=== PATIENT | female | born 1950 | race Caucasian/White ===

== ENCOUNTER 2019-11-16 17:56 | Inpatient (IN) | payer MEDICARE, SELFPAY ==
[2019-11-16] VITALS (8 sets, daily range): BP systolic 116–184; BP diastolic 57–93; PULSE 100–118; RESP 15–22; TEMP 36.6–36.7; O2SAT 88–98; BMI 30.7
--- NOTE | 2019-11-16 18:07 | ED_ITS ---
Entered by Collin Isabel LPN, acting as scribe for Jemal Hampton DO HPI - Chest Pain General: Chief Complaint: Chest Pain Stated Complaint: cp Time Seen by Provider: 11/16/19 18:11 Source: patient Mode of arrival: wheelchair Limitations: no limitations History of Present Illness: HPI narrative: 69 yo female presents with c/o chest pain that started a few days ago and has worsened. She reports headache. She feels pain in both arms and between her shoulder blades. The back pain increases with movement and touch. She reports vomiting and diarrhea. She denies fever. She has had sore throat. She denies abd pain. She has had increased swelling to BLE. Pt with h/o HTN, has had trouble getting her BP regulated for a long time. She denies having cardiac stents. MD complaint: chest pain Onset (ago): day(s) Timing of current episode: constant Onset: during rest Pain radiation: back (between shoulder blades) Severity: severe Relieving factors: nothing Associated symptoms: Reports nausea and vomiting; Deny abdominal pain, dyspnea, fever(s) or palpitations Review of Systems Const: Denies: fever or chills Eyes: Denies: change in vision or blurry vision ENMT: Reports: throat pain; Denies: painful swallowing, swelling of lips/tongue, bleeding gums, dental pain, Change in hearing, nose bleeds, post nasal drip or facial/sinus pain Card: Reports: chest pain and edema; Denies: palpitations, irregular heart rhythm, swelling of feet/ankles, shortness of breath on exertion or shortness of breath when lying down Resp: Denies: shortness of breath, productive cough, non-productive cough or wheezing GI: Reports: nausea and vomiting; Denies: abdominal pain, rectal pain, blood in stool or black tarry stool : Denies: painful urination, urinary frequency, urinary urgency or blood in urine Musc: Reports: back pain; Denies: neck pain, redness or joint warmth Skin/Breast: Denies: rash, itching or redness Neuro: Reports: headache; Denies: dizziness, vertigo, confusion or seizure-like activity Psych: Denies: anxiety, visual hallucinations or auditory hallucinations PFSH ED PFSH: Statuses (acute, chronic, etc) shown below reflect problem list status as previously entered and may not be historically accurate Social History Smoking and tobacco status: former smoker Physical Exam Const: COMMON NORMALS: alert GENERAL APPEARANCE: cooperative, well dev eloped and in distress (moderate distress, in pain); not comfortable ORIENTATION/CONSCIOUSNESS: Yes awake, Yes oriented to person, Yes oriented to place and Yes oriented to time HENMT: COMMON NORMALS: normocephalic, external ears normal, external nose normal and moist oral mucous membranes HEAD & SCALP: normocephalic; no scalp tenderness FACE & SINUS: normal facial exam NOSE: external nose normal and no nasal discharge EXTERNAL EAR: Yes external ears normal MOUTH: tongue normal TEETH & GINGIVA: no abnormal tooth and associated gingiva Eye: COMMON NORMALS: PERRL, EOMs intact bilaterally and conjunctivae normal EYELID: eyelids normal CONJUNCTIVA: Yes conjunctivae normal PUPIL: Yes PERRL Neck/C-Spine: COMMON NORMALS: full ROM GENERAL: No tracheal deviation CERVICAL SPINE: Yes normal cervical lordosis and No cervical spine tenderness Chest: COMMONS NORMALS: inspection of chest normal CHEST: Yes symmetrical chest wall rise and No tenderness Resp: COMMON NORMALS: clear to auscultation bilaterally EFFORT & INSPECTION: No tachypneic, No respiratory distress, No retractions, No uses acc essory muscles and No tracheal deviation AUSCULTATION: clear to auscultation bilaterally, no rhonchi, no wheezes and lung sounds not diminished Cardio: COMMON NORMALS: regular rhythm; negative for regular rate RATE: abnormal rate RHYTHM: regular rhythm HEART SOUNDS: no murmurs PERIPHERAL PULSES: radial pulses present OTHER: tachycardia GI: INSPECTION: No abdominal distension AUSCULTATION: No hyperactive bowel sounds and No hypoactive bowel sounds PALPATION: No tender, No guarding and No rigid PERCUSSION: no dullness to percussion and no tympanic to percussion : COMMON NORMALS: Yes no CVA tenderness BLADDER/KIDNEY EXAM: Yes no CVA tenderness Back/Pelvis: COMMON NORMALS: no CVA tenderness PELVIS: Yes no pain with anterior-posterior compression and Yes no pain with lateral compression OTHER: mild tenderness upper thoracic Neuro: SENSORIUM/ORIENTATION: Yes alert, Yes oriented to person, Yes oriented to place and Yes oriented to time Psych: COMMON NORMALS: mental status grossly normal and speech normal SPEECH: Yes normal speech Skin: COMMON NORMALS: no rashes or lesions noted GENERAL SKIN EXAM: no rashes or lesions noted Course ED course: 69-year-old female with no prior history of coronary disease. She presents with chest discomfort radiating to her upper back. She states that her arms had gone numb on and off. She had some mild trouble breathing. She had mild tenderness to her upper thoracic region. She was hypertensive and mildly tachycardic on arrival. Her first troponin was elevated. Her second 1 significantly elevated, creating a delta of 70. Prior to her second troponin, her d-dimer came back positive, and due to concern of pulmonary embolism versus aortic dissection given her back pain, CTA was performed. It was negative. But did show calcification of her coronary arteries. She had no significant elevation of her ST segments on EKG initially or at 2 hours. She did have some mild ST segment depression laterally more pronounced initially. Cardiology was consulted from the ER. She will go to [facility] for further treatment and evaluation. She has had nitroglycerin, she took aspirin at home, and morphine for pain. Consultations: Consultation #1: seferino Time: 21:01 Consultation #2: Jairo Time: 21:09 Vital Signs: Vital signs: Vital Signs Temperature 98.1 F 11/16/19 22:30 Pulse Rate 84 11/17/19 04:00 Respiratory Rate 12 11/17/19 04:00 Blood Pressure 111/63 11/17/19 04:00 Pulse Oximetry 97 11/17/19 04:00 MDM - Chest Pain Lab Data: Labs: Lab Results 11/16/19 11/16/19 11/16/19 Range/Units 18:15 18:15 18:15 WBC 7.2 (4.0-10.0) 10^3/ uL RBC 3.99 L (4.1-5.3) 10^6/u L Hgb 12.5 (11.5-15.3) g/dL Hct 39.5 (37.0-47.0) % MCV 99.0 (81-99) fL MCH 31.3 (28.0-34.0) pg MCHC 31.6 (30.0-36.0) g/dL RDW 12.9 (12.1-15.1) % Plt Count 241 (130-400) 10^3/c mm MPV 12.0 H (7.4-10.4) fL Neut % (Auto) 61.5 % Lymph % (Auto) 26.2 % [place] % (Auto) 9.3 % Eos % (Auto) 1.8 % Baso % (Auto) 1.1 % Neut # (Auto) 4.4 (1.8-7.7) 10^3/u L Lymph # (Auto) 1.9 (0.8-4.8) 10^3/u L [place] # (Auto) 0.7 (0.2-0.9) 10^3/u L Eos # (Auto) 0.1 (0.0-0.8) 10^3/u L Baso # (Auto) 0.1 (0.0-0.1) 10^3/u L Nucleated RBC % (a uto) 0 % Nucleated RBCs # 0.0 /100WBC PT 13.00 (10.5-13.3) SECO NDS INR 0.96 (0.8-1.2) APTT 24.5 (23.9-36.7) SECO NDS D-Dimer 2.20 H (0-0.59) ug/mIFE U Sodium 151 H (136-145) mmol/L Potassium 4.2 (3.5-5.1) mmol/L Chloride 109 H (98-107) mmol/L Carbon Dioxide 24 (22-29) mmol/L Anion Gap 22.2 H (5-19) BUN 27 H (8-23) mg/dL Creatinine 1.2 H (0.5-0.9) mg/dL Glucose 173 H (74-106) mg/dL Calcium 9.9 (8.8-10.2) mg/Dl Troponin T Baselin e (0-10) ng/mL Troponin T 120 Min huslia (0-10) ng/mL Delta Troponin T (0-10) ABS# NT-Pro-B Natriuret Pep 1804 H (0-125) pg/mL Lipase 46 (13-60) U/L 11/16/19 11/16/19 Range/Units 18:15 20:08 WBC (4.0-10.0) 10^3/ uL RBC (4.1-5.3) 10^6/u L Hgb (11.5-15.3) g/dL Hct (37.0-47.0) % MCV (81-99) fL MCH (28.0-34.0) pg MCHC (30.0-36.0) g/dL RDW (12.1-15.1) % Plt Count (130-400) 10^3/c mm MPV (7.4-10.4) fL Neut % (Auto) % Lymph % (Auto) % [place] % (Auto) % Eos % (Auto) % Baso % (Auto) % Neut # (Auto) (1.8-7.7) 10^3/u L Lymph # (Auto) (0.8-4.8) 10^3/u L [place] # (Auto) (0.2-0.9) 10^3/u L Eos # (Auto) (0.0-0.8) 10^3/u L Baso # (Auto) (0.0-0.1) 10^3/u L Nucleated RBC % (a uto) % Nucleated RBCs # /100WBC PT (10.5-13.3) SECO NDS INR (0.8-1.2) APTT (23.9-36.7) SECO NDS D-Dimer (0-0.59) ug/mIFE U Sodium (136-145) mmol/L Potassium (3.5-5.1) mmol/L Chloride (98-107) mmol/L Carbon Dioxide (22-29) mmol/L Anion Gap (5-19) BUN (8-23) mg/dL Creatinine (0.5-0.9) mg/dL Glucose (74-106) mg/dL Calcium (8.8-10.2) mg/Dl Troponin T Baselin e 73 H (0-10) ng/mL Troponin T 120 Min huslia 152.80 H (0-10) ng/mL Delta Troponin T 79.80 H* (0-10) ABS# NT-Pro-B Natriuret Pep (0-125) pg/mL Lipase (13-60) U/L Critical Care Time Critical Care Time: Critical Care Time: Yes Total Critical Care Time: 45 Attestation: This case had a high probability of a clinically significant, sudden, or life threatening deterioration of this patient's condition which required my full and direct attention, intervention and personal management. Discharge Plan Discharge Admit Provider: Nunu Wilson Discharge Date/Time: 11/16/19 22:10 Coding Level of Care Code ED Car Trimmer for Chg Fwd Exam Problem Focused The documentation recorded by the Chalo nieves Dani Elizabeth, LPN, accurately reflects the service I personally performed and the decisions made by me, Jemal Hampton, Nov 16, 2019 17:56
--- NOTE | 2019-11-16 18:18 | ECG_ITS ---
Measurements Intervals [place] Rate: 116 P: 64 MI: 146 QRS: -7 QRSD: 89 T: 62 QT: 303 QTc: 422 SINUS TACHYCARDIA WITH OCCASIONAL VENTRICULAR PREMATURE COMPLEXES POSSIBLE LEFT ATRIAL ENLARGEMENT [-0.1mV P WAVE IN V1/V2] NONSPECIFIC ST & T-WAVE ABNORMALITY ABNORMAL RHYTHM ECG No previous ECG available for comparison Electronically Signed On 11-16-2019 19:21:08 COMPRESS MACHINE OPERATOR by Hoa Gill M.D. [id number]
--- NOTE | 2019-11-16 18:18 | XRR_ITS ---
PROCEDURE INFORMATION: Exam: XR Chest, 1 View Exam date and time: 11/16/2019 6:32 PM Age: 69 years old Clinical indication: Cough; Additional info: Cp TECHNIQUE: Imaging protocol: XR of the chest Views: 1 view. COMPARISON: No relevant prior studies available. FINDINGS: Lungs: Unremarkable. No consolidation. Pleural space: Unremarkable. No pleural effusion. No pneumothorax. Heart/Mediastinum: Heart size not optimally evaluated with a single AP view of the chest. Vasculature: There is calcified plaque in the aortic knob. Bones/joints: There are degenerative changes in the thoracic spine and across the acromioclavicular joints. Other findings: Lumbar scoliotic curvatures. XR/XR chest 1V portable [id number] IMPRESSION: No acute findings.
[2019-11-16] MEDS: ondansetron 2 mg/ML SDV 2 mL 4 MG IVP ×2 (18:33→20:35)
[2019-11-16] MEDS: morphine 4 mg/mL SDV 1 mL IVP ×3 (18:33→21:16)
[2019-11-16 18:47] LABS: Basophils # 0.1 10^3/uL (0.0-0.1); Basophils % 1.1 %; Eosinophils # 0.1 10^3/uL (0.0-0.8); Eosinophils % 1.8 %; Hematocrit 39.5 % (37.0-47.0); Hemoglobin 12.5 g/dL (11.5-15.3); Lymphocytes # 1.9 10^3/uL (0.8-4.8); Lymphocytes % 26.2 %; Mean Corpuscular HGB Conc 31.6 g/dL (30.0-36.0); Mean Corpuscular Hemoglobin 31.3 pg (28.0-34.0); Monocytes # 0.7 10^3/uL (0.2-0.9); Monocytes % 9.3 %; Neutrophils # 4.4 10^3/uL (1.8-7.7); Neutrophils % 61.5 %; Nucleated Red Blood Cells % 0 %; Platelet Count 241 10^3/cmm (130-400); Red Blood Count 3.99 10^6/uL (4.1-5.3); Red Cell Distribution Width 12.9 % (12.1-15.1); White Blood Count 7.2 10^3/uL (4.0-10.0)
[2019-11-16 19:05] LABS: INR 0.96 (0.8-1.2)
[2019-11-16 19:06] LABS: Partial Thromboplastin Time 24.5 SECONDS (23.9-36.7)
--- NOTE | 2019-11-16 19:10 | CTR_ITS ---
PROCEDURE INFORMATION: Exam: CT Angiography Chest With Contrast Exam date and time: 11/16/2019 7:20 PM Age: 69 years old Clinical indication: Chest pain; Type not specified; Additional info: Cp TECHNIQUE: Imaging protocol: Computed tomographic angiography of the chest with intravenous contrast. 3D rendering: MIP and/or 3D reconstructed images were created by the technologist. Total DLP: 1080.54 mGy-cm Radiation optimization: All CT scans at this facility use at least one of these dose optimization techniques: automated exposure control; mA and/or kV adjustment per patient size (includes targeted exams where dose is matched to clinical indication); or iterative reconstruction. Contrast material: VISI; Contrast volume: 95 ml; Contrast route: IV; COMPARISON: CR (CHEST, ) 11/16/2019 6:23 PM FINDINGS: Pulmonary arteries: Normal. No pulmonary emboli. Aorta: Unremarkable. No aortic aneurysm. No aortic dissection. Lungs: There are pulmonary parenchymal calcifications consistent with remote granulomatous organism exposure. Pleural space: Unremarkable. No pneumothorax. No pleural effusion. Heart: Multivessel atherosclerotic disease which involves the coronary arteries. Mediastinum: Small hiatal hernia. Lymph nodes: Unremarkable. No enlarged lymph nodes. Bones/joints: There are thoracolumbar scoliotic curvatures. There are degenerative changes in the visualized spine. Soft tissues: Unremarkable. CT/CT angio chest PE protcl [id number] IMPRESSION: 1. Multivessel atherosclerotic disease which involves the coronary arteries. 2. No evidence for pulmonary embolus. Radiation Dose CTDIVOL = (mGy): DLP = 1080.54 (mGy-cm)
--- NOTE | 2019-11-16 19:10 | CTR_ITS ---
PROCEDURE INFORMATION: Exam: CTA Angiogram of the Abdominal Aorta and Bilateral Lower Extremities (Run-off) With IV Contrast Exam date and time: 11/16/2019 7:20 PM Age: 69 years old Clinical indication: Abdominal pain; Generalized; Prior surgery; Surgery date: 6+ months; Surgery type: Gb, hsyt; Additional info: Cp, belly pain TECHNIQUE: Imaging protocol: CT angiogram of the abdominal aorta, pelvis and bilateral lower extremities with IV iodinated contrast. 3D rendering: MIP and/or 3D reconstructed images were created by the technologist. Total DLP: 1918.42 mGy-cm Radiation optimization: All CT scans at this facility use at least one of these dose optimization techniques: automated exposure control; mA and/or kV adjustment per patient size (includes targeted exams where dose is matched to clinical indication); or iterative reconstruction. Contrast material: VISI; Contrast volume: 95 ml; Contrast route: IV; COMPARISON: CT angio chest PE protcl [id number] 11/16/2019 8:34 PM FINDINGS: Aorta: Abdominal aorta is tortuous. No aortic aneurysm. No aortic dissection. Celiac trunk and mesenteric arteries: There is calcified plaque at the origin of the celiac artery without significant stenosis. There is calcified plaque at the origin of the superior mesenteric artery with approximately 30% stenosis. Renal arteries: There is calcified plaque in the left renal artery with approximately 50% stenosis at the origin. There is calcified plaque in the right renal artery with approximately 70% stenosis proximally. Right iliac arteries: Scattered atherosclerotic plaque. No occlusion or significant stenosis. Right femoral/popliteal arteries: Scattered atherosclerotic plaque with luminal irregularity. Right infrapopliteal arteries: There is scattered atherosclerotic plaque in the anterior tibial, posterior tibial, and peroneal arteries. There is thready flow with multiple regions of narrowing and possible occlusion in the proximal to mid aspects of the anterior tibialis artery. No flow is seen within the distal aspect of the anterior tibialis artery. Left iliac arteries: Scattered atherosclerotic plaque. No occlusion or significant stenosis. Left femoral/popliteal arteries: There is scattered atherosclerotic plaque with luminal irregularity throughout. Left infrapopliteal arteries: No occlusion or significant stenosis. There is thready flow in the proximal to mid aspects of the anterior tibialis artery. No flow is seen within the distal aspect of the anterior tibialis artery.There is thready flow within the midportion of the peroneal artery. No flow seen within the distal aspect of the peroneal artery approximately 15 mm superior to the ankle joint. Liver: See Gallbladder And Bile Ducts Finding. Gallbladder and bile ducts: The gallbladder has been removed. Prominence of the intrahepatic and extrahepatic biliary ducts. This can be seen after cholecystectomy. No radiopaque retained stones are seen. Pancreas: Unremarkable. No mass. No ductal dilation. Spleen: Normal. No splenomegaly. Adrenals: Normal. No mass. Kidneys and ureters: Normal. No mass. Stomach and bowel: Colonic constipation is present. Appendix: No evidence of appendicitis. Bladder: Unremarkable. No mass. Reproductive: The uterus is not visualized, consistent with hysterectomy. Intraperitoneal space: Unremarkable. No free air. No significant fluid collection. Lymph nodes: No lymphadenopathy. Bones/joints: There are thoracolumbar scoliotic curvatures. There are degenerative changes in the visualized spine. Soft tissues: Unremarkable. CT/CT angio abd aorta runof [id number] IMPRESSION: Multi-vessel atherosclerotic disease as described in detail above. Colonic constipation is present. Radiation Dose CTDIVOL = (mGy): DLP = 1918.42 (mGy-cm)
--- NOTE | 2019-11-16 19:12 | PC.NURSE ---
Introduced self to patient and initiated monitoring. Pt presented earlier this PM with epigastric chest pain which radiates to left arm and between shoulder blades. Pt currently states a pain level of 3/10 between shoulder blades ad no chest pain.
[2019-11-16 19:14] LABS: Troponin(5th) Baseline 73 ng/mL (0-10)
[2019-11-16 19:45] LABS: Anion Gap 22.2 (5-19); Blood Urea Nitrogen 27 mg/dL (8-23); Calcium 9.9 mg/Dl (8.8-10.2); Carbon Dioxide 24 mmol/L (22-29); Chloride 109 mmol/L (98-107); Glucose 173 mg/dL (74-106); Lipase 46 U/L (13-60); NT Pro B Type Natriuretic Pept 1804 pg/mL (0-125); Potassium 4.2 mmol/L (3.5-5.1); Sodium 151 mmol/L (136-145)
[2019-11-16] MEDS: iodixanol 320 mg/mL 100mL Btl IV ×2 (20:00→20:44)
--- NOTE | 2019-11-16 20:18 | ECG_ITS ---
Measurements Intervals [place] Rate: 97 P: 43 [place]: 149 QRS: -18 QRSD: 89 T: 77 QT: 325 QTc: 415 SINUS RHYTHM POSSIBLE LEFT ATRIAL ENLARGEMENT [-0.1mV P WAVE IN V1/V2] NONSPECIFIC ST & T-WAVE ABNORMALITY Compared to ECG 11/16/2019 18:09:23 Sinus tachycardia no longer present Ventricular premature complex(es) no longer present T-wave abnormality still present Electronically Signed On 11-17-2019 19:29:41 WRITER by Hoa Gill M.D. [id number]
--- NOTE | 2019-11-16 20:25 | PC.NURSE ---
pt in CT
--- NOTE | 2019-11-16 20:35 | PC.NURSE ---
Spoke with provider regarding Delta Change in Troponin level (+79). Will continue to monitor.
[2019-11-16] MEDS: clopidogrel 300 mg Tablet PO (21:15)
[2019-11-16] MEDS: enoxaparin 80 mg/0.8 mL Syringe SUBCUT (21:15)
[2019-11-16] MEDS: nitroglycerin 1 gm/inch oint Pkt 1 INCH TOPICAL (21:16)
--- NOTE | 2019-11-16 21:27 | PM.HP ---
Providers/Chief Complaint Chief Complaint: CHEST PAIN, NON STEMI History of Present Illness Eliana Samuels is a 69 year old female with history of hypertension, hypothyroidism presents with chest pain. Patient states that pain started 1 week ago and has progressively worsened located in the mid chest radiating to the back and left neck along with left shoulder. Patient has never experienced chest pain like this before. Patient also admits to shortness of breath worse on exertion. Patient does admit to recent flu which she is still recovering from. Denies active fever, chills, or abdominal pain. Review of Systems General: Reports: 10 or more systems reviewed and unremarkable except in HPI and below Card: Reports: chest pain and shortness of breath on exertion Resp: Reports: shortness of breath PFSH Acute PFSH: Statuses (acute, chronic, etc) shown below reflect problem list status as previously entered and may not be historically accurate Social History Smoking and tobacco status: former smoker Vitals/I&O/Wt Last Vital Signs Temp 97.9 F 11/16/19 18:17 Pulse 116 H 11/16/19 21:00 Resp 18 11/16/19 21:00 BP 169/92 11/16/19 21:00 Pulse Ox 96 11/16/19 21:00 Weight last 48 hrs Weight 86.183 kg Physical Exam Const: COMMON NORMALS: no apparent distress, oriented x3 and well nourished HENMT: COMMON NORMALS: normocephalic HEAD & SCALP: normocephalic Eye: COMMON NORMALS: no scleral icterus Neck/C-Spine: COMMON NORMALS: full ROM and supple Resp: COMMON NORMALS: normal respiratory effort and clear to auscultation bilaterally EFFORT & INSPECTION: Yes symmetric chest movement AUSCULTATION: clear to auscultation bilaterally Cardio: COMMON NORMALS: regular rate, regular rhythm, S1 normal heart sound and S2 normal heart sound RATE: regular rate RHYTHM: regular rhythm HEART SOUNDS: S1 normal and S2 normal GI: COMMON NORMALS: normal to inspection, nondistended, normoactive bowel sounds and non-tender Extremity: COMMON NORMALS: full ROM and no clubbing, cyanosis or edema Neuro: COMMON NORMALS: oriented x3 Psych: COMMON NORMALS: mental status grossly normal Skin: COMMON NORMALS: no rashes or lesions noted GENERAL SKIN EXAM: no rashes or lesions noted Data : 11/16/19 18:15 11/16/19 18:15 A&P Assessment and plan (1) NSTEMI (non-ST elevated myocardial infarction): # Chest pain 2/2 NSTEMI with elevated trop - tele - EKG shows no ST elevations -Lovenox subcu, beta-radha, aspirin, Plavix, statin ?Cardiology contacted from the ED?possible cardiac cath in the a.m. N.p.o. past midnight ?Nitro PRN ?CT scan chest negative for PE #Shortness of breath (stable) likely 2/2 heart failure in setting of NSTEMI. No crackles auscultated on exam but noted to have elevated proBNP - will start Lasix IV push if needed #Continue with rest of chronic home medications?patient currently does not remember which medication she takes at home and does not have a list with her. Family will be bringing medications in the a.m. to be restarted inpatient #DVT prophylaxis?on Lovenox Status: Acute Code(s): I21.4 - Non-ST elevation (NSTEMI) myocardial infarction (2) Accelerated essential hypertension: Status: Chronic Code(s): I10 - Essential (primary) hypertension (3) Hypothyroid: Status: Chronic Code(s): E03.9 - Hypothyroidism, unspecified Attestations Medical Necessity Statement*: Patient requires greater than 2 midnights of inpatient stay for NSTEMI Coding Level of Care Code Acute Pick Up And Delivery Driver for [facility] Diagnoses NSTEMI (non-ST elevated myocardial infarction) I21.4 Accelerated essential hypertension I10 Hypothyroid E03.9
[2019-11-16] MEDS: atorvastatin 40 mg Tablet 80 MG PO (22:36)
--- NOTE | 2019-11-16 23:12 | PC.NURSE ---
Patients daughter Bela will bring patients home medications in the am when she returns. Patient unable to verbalize all medications and dosages correctly.
[2019-11-17] VITALS (17 sets, daily range): BP systolic 94–152; BP diastolic 53–92; PULSE 72–93; RESP 12–21; TEMP 36.7–36.8; O2SAT 90–99
[2019-11-17 01:12] LABS: Troponin 5 6HR 257.1 ng/L (0-10); Troponin 5 6HR Delta 184.1 ng/L (0-12)
[2019-11-17 05:20] LABS: Basophils # 0.1 10^3/uL (0.0-0.1); Basophils % 1.1 %; Eosinophils # 0.1 10^3/uL (0.0-0.8); Eosinophils % 1.8 %; Hematocrit 32.9 % (37.0-47.0); Hemoglobin 10.3 g/dL (11.5-15.3); Lymphocytes # 1.5 10^3/uL (0.8-4.8); Lymphocytes % 34.8 %; Mean Corpuscular HGB Conc 31.3 g/dL (30.0-36.0); Mean Corpuscular Hemoglobin 30.9 pg (28.0-34.0); Mean Corpuscular Volume 98.8 fL (81-99); Mean Platelet Volume 11.8 fL (7.4-10.4); Monocytes # 0.5 10^3/uL (0.2-0.9); Monocytes % 10.8 %; Neutrophils # 2.2 10^3/uL (1.8-7.7); Neutrophils % 51.3 %; Nucleated Red Blood Cells % 0 %; Platelet Count 174 10^3/cmm (130-400); Red Blood Count 3.33 10^6/uL (4.1-5.3); White Blood Count 4.4 10^3/uL (4.0-10.0)
[2019-11-17 05:26] LABS: Partial Thromboplastin Time 30.1 SECONDS (23.9-36.7)
[2019-11-17 05:41] LABS: Blood Urea Nitrogen 24 mg/dL (8-23); Calcium 9.3 mg/Dl (8.8-10.2); Carbon Dioxide 26 mmol/L (22-29); Chloride 105 mmol/L (98-107); Glucose 104 mg/dL (74-106); Sodium 140 mmol/L (136-145)
--- NOTE | 2019-11-17 08:33 | PM.CONSULT ---
Providers/Reason For Consult Consulting Physican/Specialty*: Adam Gill MD/cardiology Reason for Consult*: Patient with chest pain and elevated troponin T Requesting Physcian: Dr. Hampton Attending Physician: Marquise Talavera History of Present Illness History of Present Illness Eliana Samuels is a 69 year old female , admitted to the hospital with complaints of chest pain and elevated troponin I. Patient has a longstanding history of hypertension. She been having chest pain off and on for the last year or so. For the last 1 month, she been having chest pains almost on a daily basis. The pain may last anywhere from few hours to a whole day. It usually starts between the shoulder blades and then radiates across the shoulders, to the neck and to the front of the chest. Intensity of the pain varies. It could be up to 10/10 in intensity. Yesterday the pain was more severe, associated with nausea and some shortness of breath. For that reason, she decided to come to the hospital. She did not have any palpitation, dizziness or syncopal episode. Might have had some sweating. For the last 3 weeks, she had flulike symptoms. According the patient, she thought that the pain may be related to the flu. But because of the worsening of the symptoms, she decided to come to the hospital. She has no documented history for coronary artery disease, myocardial infarction or congestive heart failure. Couple of years ago, she was told to have possible silent heart attack. She had a myocardial perfusion imaging 2 years ago and was told to be okay. The details of the results are as mentioned below. Review of Systems Narrative: Patient had flulike symptoms for the last couple of weeks Const: Reports: other (Anorexia); Denies: fever, chills, change in appetite, fatigue or night sweats Eyes: Denies: change in vision, blurry vision or eye discomfort ENMT: Denies: bleeding gums, nose bleeds or other (Spinning Sensation, Trouble Swallowing) Card: Reports: chest pain; Denies: syncope, pre-syncope, shortness of breath when lying down or leg pain with exertion Resp: Denies: productive cough, change in phlegm color or coughing up blood GI: Denies: vomiting, vomiting blood, bloating, blood in stool or black tarry stool : Denies: blood in urine Musc: Reports: neck pain, extremity swelling (Bilateral leg swelling) and joint pain; Denies: extremity pain, redness, muscle cramps, muscle weakness or other (Neck Pain or Swollen Glands) Skin/Breast: Denies: rash, itching, redness, new lesion, changes in skin color, yellow skin, nail changes or breast mass/lump Neuro: Denies: headache, changes in sensation, lack of coordination, frequent falls, dizziness, vertigo, seizure-like activity or other (TIA, Numbness) Psych: Reports: other (Delusions, Disorientation, or Insomnia); Denies: visual hallucinations, auditory hallucinations or tactile hallucinations Endo: Denies: excessive urination, excessive thirst or other (Abnormal Hair Loss) Neal/Lymph: Denies: easy bruising All/Imm: Denies: hives Meds/Allergies Home Medications and Allergies Home Medications Medication Instructions Recorded Confirmed Type amlodipine [Norvasc] 10 mg PO DAILY 11/17/19 11/17/19 History carvedilol 12.5 mg PO BID 11/17/19 11/17/19 History cyanocobalamin (vitamin B-12) 1,000 mcg PO DAILY 11/17/19 11/17/19 History [Vitamin B-12] levothyroxine [Synthroid] 88 mcg PO DAILY 11/17/19 11/17/19 History liothyronine 5 mcg PO DAILY 11/17/19 11/17/19 History lisinopril 20 mg PO BID 11/17/19 11/17/19 History Allergies Allergy/AdvReac Type Severity Reaction Status Date / Time No Known Allergies Allergy Verified 11/16/19 22:57 Current Medications Current Medications Generic Name Dose Route Start Last Admin Trade Name Freq PRN Reason Stop Dose Admin Atorvastatin Calcium 80 mg 11/16/19 22:00 11/16/19 22:36 Lipitor PO 80 mg BEDTIME TOSHIA Administration PFSH Acute PFSH: Statuses (acute, chronic, etc) shown below reflect problem list status as previously entered and may not be historically accurate Medical History Tubal ligation evaluation (Acute) Surgical History H/O hysterectomy for benign disease (Acute) Family History Brother CAD (coronary artery disease), Onset Age: 59 of myocardial infarction at age 59 Father CAD (coronary artery disease), Onset Age: 55 Had open heart surgery x3 Grandfather CAD (coronary artery disease), Onset Age: 55 Also of myocardial infarction in the late 50s Social History Smoking and tobacco status: former smoker Vitals/I&O/Wt Last Vital Signs Temp 98.1 F 11/16/19 22:30 Pulse 90 11/17/19 08:12 Resp 21 H 11/17/19 06:00 BP 113/62 11/17/19 06:00 Pulse Ox 98 11/17/19 08:12 11/16/19 11/17/19 11/17/19 22:59 06:59 14:59 Intake Total 100 / 100 0 / 100 Balance 100 / 100 0 / 100 Weight last 48 hrs Weight 190 lb Physical Exam Const: COMMON NORMALS: oriented x3, alert and well nourished GENERAL APPEARANCE: cooperative, well developed and well hydrated; not in distress HENMT: MOUTH: lip normal; no other (ulcers or bleeding) TEETH & GINGIVA: no other (bleeding observed and inflammation present) Eye: COMMON NORMALS: PERRL and conjunctivae normal CONJUNCTIVA: Yes conjunctivae normal SCLERA: sclerae normal PUPIL: Yes PERRL DIRECT OPHTHALMOSCOPY: Yes other (The fundus is not visualized) Neck/C-Spine: COMMON NORMALS: no JVD and thyroid normal THYROID: thyroid normal CAROTIDS: Yes normal carotid upstroke (and runoff) Chest: COMMONS NORMALS: inspection of chest normal Resp: COMMON NORMALS: clear to auscultation bilaterally EFFORT & INSPECTION: Yes symmetric chest movement and No uses accessory muscles AUSCULTATION: clear to auscultation bilaterally, no crackles and no wheezes Cardio: COMMON NORMALS: no JVD, regular rate, regular rhythm, S1 normal heart sound, S2 normal heart sound, no gallops, no clicks, no murmurs, no rub and peripheral pulses 2+ throughout JUGULAR VENOUS DISTENTION: JVD present PALPATION: no heave, no palpable S3 and no thrill RATE: regular rate RHYTHM: regular rhythm HEART SOUNDS: S1 normal, S2 normal, no click and no murmurs BRUITS: no abdominal aortic bruits PERIPHERAL PULSES: pulses 2+ throughout, femoral pulses present positive bilateral (Normal), posterior tibial pulses present (Weak) positive bilateral (Normal) and dorsalis pedis pulses present (Weak) positive bilateral (Normal) GI: AUSCULTATION: Yes normoactive bowel sounds and No abdominal bruit PALPATION: No tender, No hepatomegaly, No splenomegaly and No mass Back/Pelvis: GENERAL BACK: No swelling and No other (joint deformities) THORACIC SPINE/UPPER BACK: No kyphosis present LUMBAR SPINE/LOWER BACK: No lumbar scoliosis present Extremity: COMMON NORMALS: negative for no clubbing, cyanosis or edema and negative for no pedal edema GENERAL: No cyanosis Neuro: COMMON NORMALS: oriented x3; negative for no focal motor deficits SENSORIUM/ORIENTATION: Yes alert MOTOR EXAM: No tremor Psych: MOOD & AFFECT: Yes other (Normal mood and affect) Skin: COMMON NORMALS: skin turgor normal; negative for no petechiae GENERAL SKIN EXAM: turgor normal, skin not dry and no erythema RASHES: rash noted NAILS: normal, no clubbing, not discolored and no other (cyanosis) Data Imaging^: Lexiscan stress: My impression: Test was done on 05/17/2016 1. Myocardial perfusion imaging revealing a small area of persistent increased uptake in the apical inferolateral and lateral wall regions, suggestive of myocardial scarring in the distribution of the left circumflex artery. 2. Normal left ventricular ejection fraction of 52%. 3. Wall motion analysis revealing mild diffuse hypokinesia in the apex. 4. Normal left ventricular volume. 5. No significant coronary ischemia, based on the above findings. ADDENDUM: The patient was found to have some nonspecific ST changes with the Lexiscan infusion. She also had a few premature ventricular contractions during the stress phase A&P Assessment and plan (1) Accelerated essential hypertension: The patient blood pressure seems to be getting under control now. She may be kept on the current medications. Status: Chronic Code(s): I10 - Essential (primary) hypertension (2) NSTEMI (non-ST elevated myocardial infarction): Patient has clinical features of non-ST elevation myocardial infarction. She is currently stable hemodynamically. Her EKG changes are very nonspecific. Currently she has significant improvement of the chest pain. May continue on the Lovenox, Plavix, aspirin, beta-radha and statin. An echocardiogram would be helpful to evaluate LV function and rule out other pathology. Status: Acute Code(s): I21.4 - Non-ST elevation (NSTEMI) myocardial infarction (3) Hypothyroid: Patient has a history of hypothyroidism. She is on thyroid supplement. This may be continued. Her thyroid profile need to be checked. Status: Chronic Qualifiers: Hypothyroidism type: acquired Qualified Code(s): E03.9 - Hypothyroidism, unspecified Code(s): E03.9 - Hypothyroidism, unspecified (4) Chronic kidney disease: Patient appears to have stage II kidney disease. Status: Acute Qualifiers: Chronic kidney disease stage: stage 2 (mild) Qualified Code(s): N18.2 - Chronic kidney disease, stage 2 (mild) Code(s): N18.9 - Chronic kidney disease, unspecified Additional A&P Information Additional A&P Information: Patient's cholesterol status is not known. May do a lipid profile on the blood in the lab. In view of the patient prolonged episode of chest pain and the significantly elevated troponin T, in order to further evaluate her coronary status, she may benefit from a cardiac authorization. This was discussed with the patient and her family in detail which they understood well. After reviewing the echocardiogram, timing of the cardiac catheterization will be decided. If she has significant wall motion normalities, we may consider doing the coronary angiogram as early as possible. Consult Attestations Medical Necessity Statement: Patient requires continued hospital stay for close monitoring and further management Coding Level of Care Code Acute Electrician Chief for Hillary Lambert Exam Problem Focused Diagnoses Accelerated essential hypertension I10 NSTEMI (non-ST elevated myocardial infarction) I21.4 Hypothyroid E03.9 Hypothyroidism type: acquired Chronic kidney disease N18.2 Chronic kidney disease stage: stage 2 (mild)
[2019-11-17] MEDS: clopidogrel 75 mg Tablet PO (08:46)
[2019-11-17] MEDS: aspirin 81 mg Chew Tablet PO (08:46)
[2019-11-17] MEDS: metoprolol tartrate 25 mg Tablet 12.5 MG PO (08:46)
[2019-11-17] MEDS: acetaminophen 325 mg Tablet 650 MG PO ×2 (08:46→16:11)
--- NOTE | 2019-11-17 08:48 | P.PN_ITS ---
Subjective Subjective: Interval history: She reports that she was having chest pain yesterday, central, radiating up to her neck and then to her head. She reports that overnight she was feeling better. Currently some of the discomfort is returning, although states it is minimal. Vitals/I&O/Wt Last Vital Signs Temp 98.1 F 11/16/19 22:30 Pulse 90 11/17/19 08:12 Resp 21 H 11/17/19 06:00 BP 113/62 11/17/19 06:00 Pulse Ox 98 11/17/19 08:12 11/16/19 11/17/19 11/17/19 22:59 06:59 14:59 Intake Total 100 / 100 0 / 100 Balance 100 / 100 0 / 100 Weight last 48 hrs Weight 86.183 kg Physical Exam Const: COMMON NORMALS: no apparent distress and oriented x3 HENMT: COMMON NORMALS: oropharynx normal Neck/C-Spine: COMMON NORMALS: no JVD Resp: COMMON NORMALS: normal respiratory effort and clear to auscultation bilaterally AUSCULTATION: clear to auscultation bilaterally Cardio: COMMON NORMALS: no JVD, regular rhythm, S1 normal heart sound, S2 normal heart sound and no murmurs RHYTHM: regular rhythm HEART SOUNDS: S1 normal and S2 normal GI: COMMON NORMALS: normal to inspection, nondistended, normoactive bowel sounds, soft to palpation and non-tender PALPATION: Yes soft Extremity: COMMON NORMALS: no joint enlargement and no pedal edema Neuro: COMMON NORMALS: oriented x3 and moves all extremities Skin: COMMON NORMALS: no rashes or lesions noted GENERAL SKIN EXAM: no rashes or lesions noted A&P Assessment and plan (1) NSTEMI (non-ST elevated myocardial infarction): Elevated troponin, [id number]. Chest pain last night. With improvement overnight, but some return of symptoms this morning. Nonspecific ST and T wave abnormality on EKG. History of hypertension. Former smoker. Reports family history of coronary disease. Incidentally noted multivessel atherosclerotic disease on CTA. No PE. She is awaiting assessment by cardiology for additional, possibly invasive risk stratification. At this time continue aspirin, Plavix, Lovenox, beta-radha, statin. Creatinine is 1.1 which appears close to her baseline. Status: Acute Code(s): I21.4 - Non-ST elevation (NSTEMI) myocardial infarction (2) Accelerated essential hypertension: Blood pressure was initially elevated. Currently appears close to goal. Status: Chronic Code(s): I10 - Essential (primary) hypertension (3) Hypothyroid: Status: Chronic Code(s): E03.9 - Hypothyroidism, unspecified Additional A&P Information Additional A&P Information: Shortness of breath: This appears to improved. This morning's complaining of some dry mouth secondary to oxygen. She is not normally on oxygen at home. Saturation 99% on 1 L nasal cannula. Received IV Lasix. Attestations Medical Necessity Statement*: Continue admission for assessment management of non-STEMI. Coding Level of Care Code Acute Community Worker for [facility]ust[facility] Diagnoses NSTEMI (non-ST elevated myocardial infarction) I21.4 Accelerated essential hypertension I10 Hypothyroid E03.9
--- NOTE | 2019-11-17 09:16 | USCV_ITS ---
Eliana Samuels Age: 69 Gender: F : 1950 Exam Date: 11/17/2019 10:30 Ordering Phys: Hoa Gill MD ([email or web address]) Technologist: Sanaz Hansen [place] [facility] [place]: ACUTE [place] BP: 135 / 71 HR: 80 Rhythm: Sinus Technical Quality: Adequate MEASUREMENTS (Male / Female) Normal Values 2D ECHO LV Diastolic Diameter PLAX 2.8 cm 4.2 - 5.9 / 3.9 - 5.3 cm LV Systolic Diameter PLAX 2.2 cm LV Chamber Size 2.5 cm IVS Diastolic Thickness 1.0 cm 0.6 - 1.0 / 0.6 - 0.9 cm IVS Systolic Thickness 1.3 cm LVPW Diastolic Thickness 1.8 cm 0.6 - 1.0 / 0.6 - 0.9 cm LVPW Systolic Thickness 2.1 cm RV Chamber Size 3.0 cm LVOT Diameter 2.0 cm LV Ejection Fraction 2D Teich 45.9 % LV Ejection Fraction MOD 2C 56.6 % LV Ejection Fraction 2C AL 58.9 % LA Diameter 4.5 cm LA Width 4.3 cm LA Height 5.6 cm RA Width 3.0 cm RA Height 4.2 cm Aorta at Sinotubular Diameter 2.3 cm M-MODE LV Diastolic Diameter MM 5.1 cm 4.2 - 5.9 / 3.9 - 5.3 cm LV Systolic Diameter MM 3.4 cm LV Ejection Fraction MM Teich 62.1 % IVS Diastolic Thickness MM 0.8 cm 0.6 - 1.0 / 0.6 - 0.9 cm IVS Systolic Thickness MM 1.3 cm LVPW Diastolic Thickness MM 1.0 cm 0.6 - 1.0 / 0.6 - 0.9 cm LVPW Systolic Thickness MM 1.3 cm Aortic Annulus Diameter 2.9 cm LA Ao Ratio MM 1.5 MV E Point Septal Separation 1.1 cm DOPPLER AV Peak Velocity 168.0 cm/s LVOT Peak Velocity 111.0 cm/s AV Area Cont Eq vti 2.5 cm squared AV Area Cont Eq pk 2.1 cm squared MV Area PHT 4.5 cm squared Mitral E to A Ratio 1.0 MV E' Velocity 10.0 cm/s Mitral E to MV E' Ratio 16.0 Mitral E to LV E' Lateral Ratio 14.8 Mitral E to LV E' Septal Ratio 17.5 TR Peak Velocity 376.0 cm/s TR Peak Gradient 56.5 mmHg TR Mean Velocity 180.7 cm/s TR Mean Gradient 15.1 mmHg TR Velocity Time Integral 81.3 cm TV Peak E Velocity 84.0 cm/s Right Atrial Pressure 3.0 mmHg Pulmonary Artery Systolic Pressu 59.6 mmHg PV Peak Velocity 71.0 cm/s RV Acceleration Time 0.2 s RV Ejection Time 0.4 s RV AcT/ET 0.4 FINDINGS Left Ventricle Normal left ventricular size and systolic function, EF 55%. No gross wall motion normalities.Grade II/IV diastolic dysfunction, moderately elevated filling pressures. Right Ventricle Normal right ventricular size and systolic function. Right Atrium Normal right atrial size. Left Atrium Mildly increased left atrial size. Mitral Valve Thickened mitral valve. Mild mitral annular calcification. Mild mitral valve regurgitation. Aortic Valve No gross abnormalities noted Tricuspid Valve [id number] tricuspid valve regurgitation. Pulmonic Valve No gross abnormalities noted Pericardium No pericardial effusion. Aorta Plaque seen in the ascending aorta. CONCLUSIONS Normal left ventricular size and systolic function, EF 55%. No gross wall motion normalities. Grade II/IV diastolic dysfunction, moderately elevated filling pressures. Mildly increased left atrial size. Thickened mitral valve. Mild mitral annular calcification. [id number] tricuspid valve regurgitation. Mild mitral valve regurgitation. There is no pericardial effusion. There are no intracardiac masses. No previous study is available for comparison. Dr Hoa Gill MD FAC (Electronically Signed) Final Date: 17 November 2019 18:27 S
[2019-11-17] MEDS: levothyroxine 88 mcg Tablet PO (10:13)
[2019-11-17] MEDS: cyanocobalamin 1,000 mcg Tablet 1000 MCG PO (10:13)
[2019-11-17] MEDS: enoxaparin 100 mg/mL Syringe 90 MG SUBCUT ×2 (10:23→20:44)
[2019-11-17] MEDS: metoprolol tartrate 25 mg Tablet 37.5 MG PO (10:27)
[2019-11-17] MEDS: liothyronine 5 mcg Tablet PO (10:40)
[2019-11-17] MEDS: ondansetron 2 mg/ML SDV 2 mL 4 MG IVP (11:07)
[2019-11-17 11:40] LABS: Troponin T (5th) Once 490 ng/mL (0-10)
[2019-11-17] MEDS: metoprolol tartrate 50 mg Tablet PO (17:45)
[2019-11-17] MEDS: morphine 4 mg/mL SDV 1 mL IVP ×2 (17:47→20:47)
[2019-11-17] MEDS: nitroglycerin 1 gm/inch oint Pkt 1 INCH TOPICAL (18:51)
[2019-11-17] MEDS: atorvastatin 40 mg Tablet 80 MG PO (20:45)
--- NOTE | 2019-11-17 20:54 | PC.NURSE ---
patient c/o pain 5 out of 10 in neck and shoulders not radiating anywhere else.
[2019-11-18] VITALS (23 sets, daily range): BP systolic 107–181; BP diastolic 52–107; PULSE 72–95; RESP 15–31; TEMP 36.7–37.9; O2SAT 93–98
[2019-11-18] MEDS: nitroglycerin 1 gm/inch oint Pkt 1 INCH TOPICAL ×3 (01:17→21:17)
--- NOTE | 2019-11-18 02:08 | ECG_ITS ---
Measurements Intervals [place] Rate: 80 P: 52 W[place]: 151 QRS: -16 QRSD: 73 T: 87 QT: 337 QTc: 389 SINUS RHYTHM POSSIBLE LEFT ATRIAL ENLARGEMENT [-0.1mV P WAVE IN V1/V2] NONSPECIFIC ST & T-WAVE ABNORMALITY Compared to ECG 11/16/2019 20:07:42 No significant changes Electronically Signed On 11-18-2019 13:28:47 COMPUTER REPAIR ENGINEER by Radha Goldstein M.D. [id number]
[2019-11-18] MEDS: morphine 4 mg/mL SDV 1 mL IVP ×3 (02:12→15:46)
[2019-11-18] MEDS: ondansetron 2 mg/ML SDV 2 mL 4 MG IVP ×2 (02:12→07:19)
--- NOTE | 2019-11-18 02:12 | ECG_ITS ---
Measurements Intervals [place] Rate: 80 P: 52 MS: 151 QRS: -16 QRSD: 73 T: 87 QT: 337 QTc: 389 SINUS RHYTHM POSSIBLE LEFT ATRIAL ENLARGEMENT [-0.1mV P WAVE IN V1/V2] NONSPECIFIC ST & T-WAVE ABNORMALITY Compared to ECG 11/16/2019 20:07:42 No significant changes Electronically Signed On 11-18-2019 13:28:55 SAMPLER OVENS by Radha Goldstein M.D. [email or web address]
[2019-11-18] MEDS: nitroglycerin drip 50 MG/250 ML PREMIX IV ×2 (02:35→08:13)
--- NOTE | 2019-11-18 02:36 | PC.NURSE ---
0212 patient developed chest pain as well as neck and shoulder pain. stat ekg ordered 4mg morphine given and ntp. Dr. John here ordered nitro drip to titrte for chest pain. patient chest pain started to ease up and vs became stable, no changes in ekg. will continue to monitor
--- NOTE | 2019-11-18 02:37 | PM.MISC ---
Miscellaneous Note Note: Patient awakened with pain in her shoulder blades, rated as 15, given Morphine and NTG paste applied, appears murguia and anxious. At bedside, pain is beginning to subside, was quite hypertensive (181/107) when pain began, down to about 8, BP improving. ECG does not show any new changes. Will start on NTG drip as pain has been recurrent. Is NPO for cath tomorrow AM.
[2019-11-18 05:32] LABS: Troponin T (5th) Once 418 ng/mL (0-10)
[2019-11-18] MEDS: sodium chloride 0.9% 1,000 ML 50 ML IV (07:20)
[2019-11-18] MEDS: diphenhydrAMINE 50 mg Capsule PO (07:20)
[2019-11-18] MEDS: metoprolol tartrate 50 mg Tablet PO (08:13)
[2019-11-18] MEDS: levothyroxine 88 mcg Tablet PO (08:13)
[2019-11-18] MEDS: aspirin 81 mg Chew Tablet PO (08:13)
[2019-11-18] MEDS: clopidogrel 75 mg Tablet PO (08:13)
[2019-11-18 10:01] LABS: Anion Gap 13.1 (5-19); Blood Urea Nitrogen 16 mg/dL (8-23); Calcium 9.3 mg/Dl (8.8-10.2); Carbon Dioxide 26 mmol/L (22-29); Chloride 103 mmol/L (98-107); Glucose 99 mg/dL (74-106); Potassium 4.1 mmol/L (3.5-5.1); Sodium 138 mmol/L (136-145)
[2019-11-18] MEDS: liothyronine 5 mcg Tablet PO (11:32)
[2019-11-18] MEDS: cyanocobalamin 1,000 mcg Tablet 1000 MCG PO (11:33)
--- NOTE | 2019-11-18 13:26 | PM.PN ---
Subjective Subjective: Interval history: She was having chest pain overnight. Elevated blood pressure. Was started on nitroglycerin drip, with improvement. Awaiting assessment by angiography. Vitals/I&O/Wt Last Vital Signs Temp 100.2 F H 11/18/19 08:00 Pulse 75 11/18/19 12:00 Resp 17 11/18/19 12:00 BP 126/68 11/18/19 12:00 Pulse Ox 97 11/18/19 12:00 11/17/19 11/18/19 11/18/19 22:59 06:59 14:59 Intake Total 480 / 680 240 / 920 436.9 / 436.9 Output Total 1200 / 1600 800 / 2400 1050 / 1050 Balance -720 / -920 -560 / -1480 -613.1 / -613.1 Weight last 48 hrs Weight 86.183 kg Physical Exam Const: COMMON NORMALS: no apparent distress and oriented x3 HENMT: COMMON NORMALS: oropharynx normal Neck/C-Spine: COMMON NORMALS: no JVD Resp: COMMON NORMALS: normal respiratory effort and clear to auscultation bilaterally AUSCULTATION: clear to auscultation bilaterally Cardio: COMMON NORMALS: no JVD, regular rhythm, S1 normal heart sound, S2 normal heart sound and no murmurs RHYTHM: regular rhythm HEART SOUNDS: S1 normal and S2 normal GI: COMMON NORMALS: normal to inspection, nondistended, normoactive bowel sounds, soft to palpation and non-tender PALPATION: Yes soft Extremity: COMMON NORMALS: no joint enlargement and no pedal edema Neuro: COMMON NORMALS: oriented x3 and moves all extremities Skin: COMMON NORMALS: no rashes or lesions noted GENERAL SKIN EXAM: no rashes or lesions noted A&P Assessment and plan (1) NSTEMI (non-ST elevated myocardial infarction): Continue nitroglycerin drip. Coronary angiography today. Elevated troponin, [id number]. Chest pain last night. With improvement overnight, but some return of symptoms this morning. Nonspecific ST and T wave abnormality on EKG. History of hypertension. Former smoker. Reports family history of coronary disease. Incidentally noted multivessel atherosclerotic disease on CTA. No PE. She is awaiting assessment by cardiology for additional, possibly invasive risk stratification. At this time continue aspirin, Plavix, Lovenox, beta-radha, statin. Creatinine is 1.1 which appears close to her baseline. Status: Acute Code(s): I21.4 - Non-ST elevation (NSTEMI) myocardial infarction (2) Accelerated essential hypertension: Blood pressure was initially elevated. Currently appears close to goal. Status: Chronic Code(s): I10 - Essential (primary) hypertension (3) Hypothyroid: Status: Chronic Qualifiers: Hypothyroidism type: acquired Qualified Code(s): E03.9 - Hypothyroidism, unspecified Code(s): E03.9 - Hypothyroidism, unspecified Additional A&P Information Shortness of breath: This appears to improved. This morning's complaining of some dry mouth secondary to oxygen. She is not normally on oxygen at home. Saturation 99% on 1 L nasal cannula. Attestations Medical Necessity Statement*: Continue admission for assessment management of non-STEMI. Coding Level of Care Code Acute Video Game Designer for [facility] Diagnoses NSTEMI (non-ST elevated myocardial infarction) I21.4 Accelerated essential hypertension I10 Hypothyroid E03.9 Hypothyroidism type: acquired
--- NOTE | 2019-11-18 13:50 | P.PN_ITS ---
Subjective Subjective: Interval history: Patient had an episode of chest pain around 3:00 this morning. She was started on IV nitroglycerin. She had an episode of pain early this morning as well. Currently she is pain-free. The EKG did not show any new changes. The EKG showed some nonspecific ST-T change in the anterolateral leads. The troponin T is trending down. Medications: Reviewed: Yes Vitals/I&O/Wt Last Vital Signs Temp 100.2 F H 11/18/19 08:00 Pulse 72 11/18/19 13:48 Resp 16 11/18/19 13:48 BP 147/75 11/18/19 13:48 Pulse Ox 95 11/18/19 13:48 11/17/19 11/18/19 11/18/19 22:59 06:59 14:59 Intake Total 480 / 680 240 / 920 436.9 / 436.9 Output Total 1200 / 1600 800 / 2400 1050 / 1050 Balance -720 / -920 -560 / -1480 -613.1 / -613.1 Weight last 48 hrs Weight 190 lb Physical Exam Const: GENERAL APPEARANCE: cooperative, well developed and well hydrated; not in distress HENMT: MOUTH: lip normal; no other (ulcers or bleeding) TEETH & GINGIVA: no other (bleeding observed and inflammation present) Eye: COMMON NORMALS: PERRL and conjunctivae normal CONJUNCTIVA: Yes conjunctivae normal SCLERA: sclerae normal PUPIL: Yes PERRL DIRECT OPHTHALMOSCOPY: Yes other (The fundus is not visualized) Neck/C-Spine: COMMON NORMALS: no JVD and thyroid normal THYROID: thyroid normal CAROTIDS: Yes normal carotid upstroke (and runoff) Chest: COMMONS NORMALS: inspection of chest normal Resp: COMMON NORMALS: clear to auscultation bilaterally EFFORT & INSPECTION: Yes symmetric chest movement and No uses accessory muscles AUSCULTATION: clear to auscultation bilaterally, no crackles and no wheezes Cardio: COMMON NORMALS: no JVD, regular rate, regular rhythm, S1 normal heart sound, S2 normal heart sound, no gallops, no clicks, no murmurs, no rub and peripheral pulses 2+ throughout JUGULAR VENOUS DISTENTION: JVD present PA LPATION: no heave, no palpable S3 and no thrill RATE: regular rate RHYTHM: regular rhythm HEART SOUNDS: S1 normal, S2 normal, no click and no murmurs BRUITS: no abdominal aortic bruits PERIPHERAL PULSES: pulses 2+ throughout, femoral pulses present positive bilateral (Normal), posterior tibial pulses present (Weak) positive bilateral (Normal) and dorsalis pedis pulses present (Weak) positive bilateral (Normal) GI: AUSCULTATION: Yes normoactive bowel sounds and No abdominal bruit PALPATION: No tender, No hepatomegaly, No splenomegaly and No mass Back/Pelvis: GENERAL BACK: No swelling and No other (joint deformities) THORACIC SPINE/UPPER BACK: No kyphosis present LUMBAR SPINE/LOWER BACK: No lumbar scoliosis present Extremity: COMMON NORMALS: negative for no clubbing, cyanosis or edema and negative for no pedal edema GENERAL: No cyanosis Neuro: COMMON NORMALS: negative for no focal motor deficits MOTOR EXAM: No tremor Psych: MOOD & AFFECT: Yes other (Normal mood and affect) Skin: COMMON NORMALS: skin turgor normal; negative for no petechiae GENERAL SKIN EXAM: turgor normal, skin not dry and no erythema RASHES: rash noted NAILS: normal, no clubbing, not discolored and no other (cyanosis) A&P Assessment and plan (1) NSTEMI (non-ST elevated myocardial infarction): Patient has clinical features of non-ST elevation myocardial infarction. She is currently stable hemodynamically. Her EKG changes are very nonspecific. Currently she has significant improvement of the chest pain. May continue on the Lovenox, Plavix, aspirin, beta-radha and statin. Because of the patient's ongoing episodes of recurrent chest pain, in order to further evaluate her coronary status, she requires a cardiac catheterization. She also has a new EKG changes. The risk of bleeding, hematoma, vascular injury, myocardial infarction, CVA, renal failure and other concomitant complications were explained in detail. Patient understood this well and consented to proceed. She is scheduled for the cardiac authorization later this afternoon. In the meanwhile, she may continue on the current medications. Status: Acute Code(s): I21.4 - Non-ST elevation (NSTEMI) myocardial infarction (2) Accelerated essential hypertension: The blood pressure is in the normal range. Continue on the current medications. Status: Chronic Code(s): I10 - Essential (primary) hypertension (3) Hypothyroid: Patient has a history of hypothyroidism. She is on thyroid supplement. This may be continued. We may do a thyroid profile on the blood in the lab. Status: Chronic Qualifiers: Hypothyroidism type: acquired Qualified Code(s): E03.9 - Hypothyroidism, unspecified Code(s): E03.9 - Hypothyroidism, unspecified (4) Chronic kidney disease: Patient appears to have stage II kidney disease. BUN normal range. Creatinine is 1.1 today. The kidney function is stable Status: Acute Qualifiers: Chronic kidney disease stage: stage 2 (mild) Qualified Code(s): N18.2 - Chronic kidney disease, stage 2 (mild) Code(s): N18.9 - Chronic kidney disease, unspecified Additional A&P Information Patient's cholesterol status is not known. May do a lipid profile on the blood in the lab. Attestations Medical Necessity Statement*: Patient requires continued hospital stay for close monitoring and further management Coding Level of Care Code Acute Accounts Receivable Coordinator for Chg Fwd Diagnoses NSTEMI (non-ST elevated myocardial infarction) I21.4 Accelerated essential hypertension I10 Hypothyroid E03.9 Hypothyroidism type: acquired Chronic kidney disease N18.2 Chronic kidney disease stage: stage 2 (mild)
[2019-11-18 14:48] LABS: Chol HDL Ratio 3.02 mg/dL (0.0-4.40); Cholesterol 163 mg/dL (0-200); Free T4 Free Thyroxine 2.13 ng/dL (0.82-1.77); HDL Cholesterol 54 mg/dL (60-100); LDL Cholesterol Calculated 94 mg/dL (50-129); LDL HDL Ratio 1.74 RATIO (0.00-3.22); Thyroid Stimulating Hormone 0.04 uIU/mL (0.27-4.20); Triglycerides 76 mg/dL (0-150)
--- NOTE | 2019-11-18 16:30 | XACV_ITS ---
Exam Room: [facility] Ht: 168 cm Wt: 86 kg BSA: 2.03 m2 Gender: Female : 1950 Any Known Allergies: No known allergies Exam Priority: Routine Procedure(s): Procedure Description: Diagnostic procedure Procedure Description: Left Heart Catheterization Procedure Description: Coronary Angiography Diagnostic Cath Status: Elective Diagnostic Findings The left main is a medium caliber vessel which appears to have a severe distal stenosis of around 70%. The left and descending artery was found to have severe disease proximally, involving the ostium. The lesion ranges anywhere from 70 to 90%. Around 40% lesion was noted in the origin of the first diagonal artery. The mid and distal artery was found to have mild diffuse intimal regularities with no significant stenotic lesions. 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 Right after this, there was a tubular narrowing of around 70 to 80%. The circumflex artery was found to have 20 to 30% irregular narrowing proximally. It gives off multiple small obtuse marginal branches. No other significant stenotic lesions were noted. The right coronary artery is a medium to large caliber dominant vessel which was found to have a 30% tapering narrowing proximally. The PDA branch was found to have a high-grade ostial stenosis of around 90%. The PLV branch was found to have proximal around 40% tubular narrowing. No other significant stenotic lesions were noted. CX has 0% stenosis. LM: Moderate 70% stenosis, SANJAY: 3 flow. pLAD: Severe 90% stenosis, SANJAY: 3 flow. Ramus: Severe 80% stenosis, SANJAY: 3 flow. pRCA: Mild 40% stenosis, SANJAY: 3 flow. RPDA: Severe 90% stenosis, SANJAY: 3 flow. Coronary angiography shows right dominance. Conclusions This is a 69-year-old white female with a history of hypertension , obesity, strong family history for premature vascular heart disease and remote history of smoking abuse, presented with increasing episodes of chest pain for the last 1 month. She was found to have features of a non-ST elevation myocardial infarction. She has recurrent episodes of chest pain while being in the hospital. Her initial EKG was unremarkable except for some nonspecific ST changes. Repeat EKG showed more prominent ST-T changes in the anterolateral leads. In view of her ongoing recurrent episodes of chest pain, abnormal EKG and elevated troponin T, for further evaluation of her coronary status, a cardiac catheterization was recommended. Patient underwent left heart catheterization with left and right coronary angiogram today. Initially I attempted the radial approach. Because of the extreme tortuosity in the subclavian artery and the ascending aorta, catheter engagement of the coronary artery was difficult. For this reason, we had to go to the femoral artery in the right groin. Her thoracic and the abdominal aorta also were found to be very tortuous. For this reason, it was difficult to advance the pigtail catheter into the left ventricle. The LV pressure was recorded using a an Amplatz(AL1) catheter. The LVEDP was 7 mmHg. The coronary angiogram findings are as follows. Severe distal left main disease. High-grade stenosis of the proximal LAD, involving the ostium. High-grade stenosis of the proximal segment of the intermedius artery. Another high-grade lesion was noted near to the ostium of the PDA branch of the right coronary artery. Mild diffuse disease was noted to the other vessels. No significant lesions were noted in the distal segment of the arteries. Moderate to heavy calcification was noted in the left main and proximal LAD. There is severe coronary artery disease with four vessel disease. Recommendations I contacted Dr. Stanford from the cardiothoracic surgery. The cardiac catheterization data was reviewed. A surgical revascularization was thought to be the appropriate plan of action. Patient was transferred back to the ICU in stable condition. Patient had few episodes of chest pain towards the end of the procedure which responded appropriately to IV nitroglycerin. Diagnostic RX Recommendation: CABG LV EDP: 7 mmHg Pressures Phase:Rest AO : 112 mmHg / 39 mmHg ( 70 mmHg ) @ 11:05:00 AM 81 mmHg / 31 mmHg ( 54 mmHg ) @ 11:25:00 AM 108 mmHg / 50 mmHg ( 76 mmHg ) @ 11:35:00 AM 108 mmHg / 52 mmHg ( 76 mmHg ) @ 11:39:00 AM 143 mmHg / 71 mmHg ( 102 mmHg ) @ 11:55:00 AM LV : 161 mmHg / 2 mmHg / @ 11:55:00 AM 137 mmHg / 6 mmHg / @ 11:55:00 AM Clinical Evaluation EBL: 5mL-10mL Procedural Details SignalSet documentation system having technical issues with time/date stamp. Procedure and documentation done 11/18/2019 between 16:12 and 18:17. Cardiovascular Instability: No. Wire inserted to reposition the catheter. Wire and catheter out. unable to seat catheters in coronaries. Moving to femoral approach. Called Dr Stewart to come view films. Called Dr Stanford to come view films. Dr Stanford arrived. Dr Stewart arrived. Medication's Wasted: Heparin = 4000 units. Procedure Consent Obtained. Pre-Procedure Time Out. Identified patient by full name and date of as verbalized by the patient/guarantor. Does the consent match the physician's order: Yes. Accurate & Complete Informed Consent: Yes. Inpatient/Outpatient History & Physical on Chart: Yes. If H&P is completed, is and addenduem needed: No; If yes, is the addendum complete: N/A. Visualize and Verify Site with Patient/Guarantor: N/A. Relevant Radiology Images available: N/A. Pre-op teaching completed and patient verbalized understanding. The risks, benefits, and alternatives of sedation and/or procedure were discussed by physician. The patient agrees to continue. Procedure started. Correct patient, site and procedure confirmed by cath team. PERRLA. Strong, equal hand karate black belt bilaterally. Lungs clear x 5 lobes. IV Fluids: 0.9% NaCl at KVO. 300 mL infused prior to microbiology lab assistant. [facility] Clinical Fraility Score: 4: Vulnerable. Shipper Receiver Indications: ACS > 24 hours. Chest Pain Symptom Assessment: Typical Angina Symptoms. Pre Procedural Pulses: bilateral radial was 2+. Oxygen started at 2liters/min via nasal canula. right radial was prepped with chloroprep then draped in the usual sterile fashion. bilateral groins was prepped with chloroprep then draped in the usual sterile fashion. Physician arrived. Baseline sample Acquired. HR: 81 BPM. IV Site on Arrival: 18 gauge in the left anticubital. Equipment: 6F - Radial. Cardiac Cath Pack. ACIST Manifold Kit Model BT 2000. Heparinized Saline (2 units/mL), 1000 mL bag. Physician scrubbed in. Immediate Pre-Procedure Time Out. Correct Patient: Yes; Correct Procedure: Yes; Correct Site: Yes; Correct Patient Position: Yes; Correct Supplies: Yes; Dried Flammable Prep: Yes; Blood Products Available: N/A;. Lidocaine 1% infiltrated to the right radial. Arterial access obtained. A Terumo 5 Fr Andre Radial Catheter, 110cm was advanced over the wire and used for Left coronary angiography. Catheter removed over the exchange wire. A 5 senegalese TIG catheter in over wire. Inventory is RBL-TG. A TR Band was successful obtaining hemostatsis at the Right Radial artery insertion site. TR band placed. Hemostasis obtained. Lidocaine 1% infiltrated to the right groin. CRD 5F Multi-pac Diagnostic Catheter. Lidocaine 1% infiltrated to the right groin. Arterial access obtained with micropuncture set. A 5 senegalese JL4 catheter in over wire. Catheter removed over the standard wire. A 5 senegalese AL1 catheter in over wire. Patient's family updated. Catheter removed over the standard wire. A 5 senegalese JL3.5 catheter in over wire. Catheter removed over the standard wire. A 5 senegalese JR4 catheter in over wire. Patient's family updated. Catheter removed over the standard wire. A 5 senegalese Angled Pig catheter in over wire. Catheter removed over the standard wire. A 5 senegalese AL1 catheter in over wire. EDP Sample taken: LV 161/2,18; HR: 99 BPM; SpO2: Off%. EDP Sample taken: LV 137/6,8; HR: 97 BPM; SpO2: 93%. Pullback taken: LV Off; AO Off; Mean: , Peak to Peak: , SEP: ; HR: 99 BPM; SpO2: 92%. Catheter removed over the standard wire. Physician scrubbed out. A Suture was successful obtaining hemostatsis at the Right Femoral artery insertion site. Sheath(s) sutured into position with 2-0 silk and sterile 4x4's and Op-site applied over the site. No oozing or signs and symptoms of hematoma noted. Arterial sheath flushed and connected to tranducer and pressure bag with heparinized saline. Post Procedure: Pulses reassessed and unchanged. PERRLA. Strong, equal hand karate black belt bilaterally. No VTE prophylaxis required. Medication's Wasted: Lidocaine 1% = 6 mL. Medication's Wasted: Nitro = 49.8 mg. Medication's Wasted: Other = versed 1 mg. Medication's Wasted: Other = fentanyl 50 mg. Total IV fluids: 100 mL. Complications: none. Contrast type used: Omnipaque 300 mgI/mL, 500 mL bottle. Post-op diagnosis: severe left main disease. Estimated blood loss: 5mL-10mL. Procedure completed. Patient transferred by bed to ICU. Vital chart was stopped. Site: Right Radial artery Sheath Size: 6 Fr Hemostasis Method: TR Band Hemostasis Success: Successful Site: Right Femoral artery Sheath Size: 5 Fr Hemostasis Method: Suture Hemostasis Success: Successful Procedure Medications Start: 4:47 PM Stop: 4:47 PM Medication: Versed Amount: 1 mg Route: I.V. Start: 4:47 PM Stop: 4:47 PM Medication: Fentanyl Amount: 50 mcg Route: I.V. Start: 4:54 PM Stop: 4:54 PM Medication: Versed Amount: 1 mg Route: I.V. Start: 4:56 PM Stop: 4:56 PM Medication: Verapamil Amount: 5 mg Route: I.A. Start: 4:57 PM Stop: 4:57 PM Medication: Nitrogylcerin Amount: 200 mcg Route: I.A. Start: 5:03 PM Stop: 5:03 PM Medication: Heparin Amount: 5000 units Route: I.V. Start: 5:05 PM Stop: 5:05 PM Medication: Fentanyl Amount: 25 mcg Route: I.V. Start: 5:14 PM Stop: 5:14 PM Medication: Versed Amount: 1 mg Route: I.V. Start: 5:21 PM Stop: 5:21 PM Medication: Fentanyl Amount: 25 mcg Route: I.V. Start: 5:30 PM Stop: 5:30 PM Medication: Versed Amount: 1 mg Route: I.V. Start: 5:44 PM Stop: 5:44 PM Medication: Versed Amount: 1 mg Route: I.V. Start: 5:49 PM Stop: 5:49 PM Medication: Nitrogylcerin Amount: 20 mcg/min Route: I.V. drip Start: 5:55 PM Stop: 5:55 PM Medication: Fentanyl Amount: 50 mcg Route: I.V. Start: 5:56 PM Stop: 5:56 PM Medication: Nitrogylcerin Amount: 25 mcg/min Route: I.V. drip Start: 6:00 PM Stop: 6:00 PM Medication: Nitrogylcerin Amount: 40 mcg/min Route: I.V. unruly Tian, the attending physician, have reviewed and verified all procedure medications. Yes, all medications given per verbal order History/Risk Factors Hypertension: Yes Dyslipidemia: No Peripheral Arterial Disease (PAD): No Myocardial Infarction ([place]): No Obesity: No Renal Disease: Yes Tobacco Use: Former Prior Interventions PCI: No CABG: No Valve Surgery: No Report Signatures Finalized by:Dr Hoa Gill MD [facility] on 11/18/2019 7:19:41 PM
--- NOTE | 2019-11-18 19:51 | PC.NURSE ---
RIGHT GROIN DRESSING CHANGED AFTER SATURATION OF 4X4'S. DR YUSUF IN TO VISIT WITH PT/FAMILY REGARDING OPEN HEART SURGERY TOMORROW.
--- NOTE | 2019-11-18 20:30 | PM.CONSULT ---
Providers/Reason For Consult Consulting Physican/Specialty*: Dr. Stanford cardiothoracic surgery Reason for Consult*: Left main coronary artery stenosis Requesting Physcian: Dr. Gill Attending Physician: Marquise Talavera History of Present Illness History of Present Illness Eliana Samuels is a 69 year old female Who was admitted to [facility] on November 16 after presenting with a one-week history of progressively worsening mid chest pain radiating to the back, left neck and along the left shoulder. She states that upon questioning she has had intermittent chest pain for up to 1 year though substantially more intense the past week prior to presentation. I had well as modest hypertension at 169/92. Initial admitting exam was unremarkable except for mild tachycardia. Initial troponin was elevated consistent with non-STEMI. She was treated per chest pain protocol, To include Lovenox, Plavix, aspirin, beta-radha, and statin.,. She developed chest discomfort around 3 AM and was started on IV nitroglycerin with resolution. EKG during the chest discomfort did not change and had some nonspecific ST-T wave changes in anterolateral leads. The initial troponin T was trending down. By PE protocol of the chest for her chest discomfort which was negative for pulmonary embolismAfter admission and prior to her cardiac catheterization she had a CT scan. She also apparently had a CTA of the abdominal aorta with runoff which revealed some distal disease particular involving the tibial anterior and peroneal arteries. She had at least 2 other episodes she had at least 2 other episodes of chest discomfort requiring morphine and nitroglycerin. She was seen by Dr. Cortez simply required a nitroglycerin drip. At which time apparently her pain was resolving and pain for the time of exam he felt it was reasonable to consider elective catheterization which he suction was performed late this afternoon. While the cardiac catheterization report is not available on the chart I was present at the catheterization laboratory at the request of Dr. Gill after his initial left-sided injections revealing a substantial left main stenosis involving the proximal LAD. The RCA has no substantial disease. A transthoracic echocardiogram has been performed and was read by Dr. Gill. This reveals normal LV size and systolic function of 55%. Grade 2/6 diastolic dysfunction with no gross wall motion abnormalities. There is mild to moderate tricuspid valve regurgitation and mild mitral valve regurgitation. No pericardial effusion or intracardiac masses. I visited with her after her cardiac catheterization in ICU room 8 With family also present. At the time of my exam she appears to have recovered from her sedation for her cardiac catheterization procedure. She also appears to be pain-free. I have visited with her at bedside in ICU room 8 Review of Systems Const: Reports: fatigue; Denies: fever, chills, change in appetite or change in weight Card: Reports: chest pain (Intermittently for the past year); Denies: palpitations Resp: Reports: shortness of breath (Occasionally on exertion) GI: Reports: abdominal pain; Denies: vomiting blood or coffee grounds in vomit Neuro: Denies: numbness in extremities or weakness in extremities Psych: Denies: anxiety or depression Meds/Allergies Home Medications and Allergies Home Medications Medication Instructions Recorded Confirmed Type amlodipine [Norvasc] 10 mg PO DAILY 11/17/19 11/17/19 History carvedilol 12.5 mg PO BID 11/17/19 11/17/19 History cyanocobalamin (vitamin B-12) 1,000 mcg PO DAILY 11/17/19 11/17/19 History [Vitamin B-12] levothyroxine [Synthroid] 88 mcg PO DAILY 11/17/19 11/17/19 History liothyronine 5 mcg PO DAILY 11/17/19 11/17/19 History lisinopril 20 mg PO BID 11/17/19 11/17/19 History Allergies Allergy/AdvReac Type Severity Reaction Status Date / Time No Known Allergies Allergy Verified 11/16/19 22:57 Current Medications Current Medications Generic Name Dose Route Start Last Admin Trade Name Freq PRN Reason Stop Dose Admin Acetaminophen 650 mg 11/17/19 08:38 11/17/19 16:11 Tylenol PO 650 mg Q6H PRN Administration MILD PAIN Atorvastatin Calcium 80 mg 11/16/19 22:00 11/17/19 20:45 Lipitor PO 80 mg BEDTIME TOSHIA Administration Cyanocobalamin 1,000 mcg 11/17/19 09:00 11/18/19 11:33 Vitamin B-12 PO 1,000 mcg DAILY TOSHIA Administration Sodium Chloride 1,000 mls @ 50 mls/hr 11/18/19 07:30 11/18/19 07:20 Sodium Chloride 0.9% IV 11/19/19 03:29 50 mls/hr .Q20H ONE Administration Nitroglycerin/Dextrose 50 mg in 250 mls @ 0 mls/hr 11/18/19 02:45 11/18/19 15:52 Nitroglycerin Drip IV 20 mcg/min .Q0M TOSHIA 6 mls/hr Titration Protocol Per Protocol Levothyroxine Sodium 88 mcg 11/17/19 09:00 11/18/19 08:13 Synthroid PO 88 mcg DAILY TOSHIA Administration Liothyronine Sodium 5 mcg 11/17/19 09:00 11/18/19 11:32 Cytomel PO 5 mcg DAILY TOSHIA Administration Metoprolol Tartrate 50 mg 11/17/19 09:30 11/18/19 08:13 Lopressor PO 50 mg BID TOSHIA Administration Morphine Sulfate 4 mg 11/16/19 21:58 11/18/19 15:46 Morphine IVP 4 mg Q4H PRN Administration SEVERE PAIN Nitroglycerin 1 inch 11/17/19 18:45 11/18/19 13:53 Nitro-Bid TOPICAL Not Given Q6H TOSHIA Ondansetron HCl 4 mg 11/16/19 21:58 11/18/19 07:19 Zofran IVP 4 mg Q6H PRN Administration NAUSEA AND VOMITING PFSH Acute PFSH: Statuses (acute, chronic, etc) shown below reflect problem list status as previously entered and may not be historically accurate Medical History (Updated 11/18/19 @ 20:46 by Juan Stanford MD) Chronic kidney disease (Acute) Patient is known to have kidney disease Tubal ligation evaluation (Acute) Surgical History H/O hysterectomy for benign disease (Acute) Family History Brother CAD (coronary artery disease), Onset Age: 59 of myocardial infarction at age 59 Father CAD (coronary artery disease), Onset Age: 55 Had open heart surgery x3 Grandfather CAD (coronary artery disease), Onset Age: 55 Also of myocardial infarction in the late 50s Social History Smoking and tobacco status: former smoker Vitals/I&O/Wt Last Vital Signs Temp 100.2 F H 11/18/19 08:00 Pulse 78 11/18/19 19:29 Resp 16 11/18/19 19:29 BP 123/61 11/18/19 19:29 Pulse Ox 97 11/18/19 19:29 11/18/19 11/18/19 11/18/19 06:59 14:59 22:59 Intake Total 240 / 920 436.9 / 436.9 22.95 / 459.85 Output Total 800 / 2400 1050 / 1050 Balance -560 / -1480 -613.1 / -613.1 22.95 / -590.15 Physical Exam Const: COMMON NORMALS: no apparent distress and oriented x3 GENERAL APPEARANCE: comfortable NUTRITIONAL APPEARANCE: obese ORIENTATION/CONSCIOUSNESS: Yes awake, Yes oriented to person, Yes oriented to place and Yes oriented to time HENMT: COMMON NORMALS: normocephalic and hearing grossly normal bilaterally HEAD & SCALP: normocephalic FACE & SINUS: normal facial exam Neck/C-Spine: COMMON NORMALS: no JVD and no carotid bruits GENERAL: Yes normal visual inspection, Yes trachea midline and No lymphadenopathy CAROTIDS: Yes normal carotid upstroke and No bruit Chest: COMMONS NORMALS: inspection of chest normal and palpation of chest normal CHEST: No abnormal inspection of the chest Resp: COMMON NORMALS: clear to auscultation bilaterally EFFORT & INSPECTION: Yes able to speak in complete sentences and Yes symmetric chest movement AUSCULTATION: clear to auscultation bilaterally, normal I/E ratio, no rales and no rhonchi Cardio: COMMON NORMALS: no JVD, regular rate, regular rhythm, S1 normal heart sound, S2 normal heart sound and no murmurs PALPATION: normal PMI RATE: regular rate RHYTHM: regular rhythm HEART SOUNDS: S1 normal and S2 normal BRUITS: no carotid bruits PERIPHERAL PULSES: dorsalis pedis pulses present positive right 1+ and positive left 2+ Extremity: COMMON NORMALS: normal to inspection and normal capillary refill Neuro: COMMON NORMALS: oriented x3 SENSORIUM/ORIENTATION: Yes oriented to person, Yes oriented to place and Yes oriented to time Psych: COMMON NORMALS: mental status grossly normal, cooperative and affect normal ATTITUDE: Yes calm THOUGHT CONTENT: Yes normal thought content Skin: HAIR: normal A&P Assessment and plan (1) Left main coronary artery disease: I have personally reviewed the left heart catheterization with Dr. Gill in the catheterization laboratory.Left main coronary artery stenosis from recent catheterization by Dr. Gill earlier today. Formal catheterization report is still pending I have reviewed With Ms. Melara and family members at bedside the findings of the left heart catheterization as well as reviewed our teaching materials with them. Rationale for surgical bypass as opposed to percutaneous intervention in relation to left main stenosis was frankly discussed. It is my understanding that Dr. Gill has spoken with family about the catheterization findings. We will proceed with routine preoperative CABG evaluation. Will consider surgery possibly as early as tomorrow evening. Unfortunately, she has received Plavix and this will create a potential surgical bleeding risk. It is to note that Dr. Gill left the arterial sheath in the right groin and there has been some bleeding from this area which the nurses have relayed this information to Dr. Gill. I would recommend that this sheath remain in place prior to surgery, for possible consideration to allow for intra-aortic balloon pump placement due to this left main stenosis and recent history of chest pain. In the routine conduct of CABG and routine postoperative course were frankly discussed with the patient and her family. Potential complications were also discussed including her unique risk related to her left main stenosis, non-STEMI, obesity, and recurrent anginal episodes as well as recent Plavix administration. Details and risks of CABG were carefully and frankly reviewed. Risks discussed include the possibility of , stroke, heart attack, major bleeding possibly requiring the need to reopen chest, infection, pneumonia, organ failure, failure to benefit, early closure of the bypass grafts, inability to complete the procedure, prolonged hospitalization, blood clots to lungs or other organs, need for further interventions, continued pain after surgery, need for future surgery, and possible long-term bleeding risk secondary to medication requirements. All questions were answered. Patient And family stated understanding. Also discussed the potential recommendation for assisted care to allow for oupatient rehabilitation. I will make a decision concerning timing of surgery after review of appropriate laboratory data in the morning as well as completion of greater saphenous vein mapping. I have recommended to the nursing service to place a temperature monitored [place] catheter this evening as she is currently lying supine because of the right groin sheath. Status: Acute Code(s): I25.10 - Atherosclerotic heart disease of [place] coronary artery without angina pectoris (2) NSTEMI (non-ST elevated myocardial infarction): CABG secondary to left main stenosis Status: Acute Code(s): I21.4 - Non-ST elevation (NSTEMI) myocardial infarction Consult Attestations Medical Necessity Statement: Non-STEMI with left main coronary artery stenosis as noted during cardiac catheterization earlier today. 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
[2019-11-18 20:58] LABS: INR 1.07 (0.8-1.2)
[2019-11-18 20:59] LABS: Partial Thromboplastin Time 35.8 SECONDS (23.9-36.7)
[2019-11-18 21:05] LABS: Basophils % 0.4 %; Eosinophils # 0.1 10^3/uL (0.0-0.8); Eosinophils % 1.9 %; Hematocrit 33.1 % (37.0-47.0); Hemoglobin 10.4 g/dL (11.5-15.3); Lymphocytes # 1.1 10^3/uL (0.8-4.8); Lymphocytes % 22.6 %; Mean Corpuscular HGB Conc 31.4 g/dL (30.0-36.0); Mean Corpuscular Volume 98.8 fL (81-99); Mean Platelet Volume 12.1 fL (7.4-10.4); Monocytes # 0.4 10^3/uL (0.2-0.9); Monocytes % 7.5 %; Neutrophils # 3.1 10^3/uL (1.8-7.7); Neutrophils % 67.4 %; Nucleated Red Blood Cells % 0 %; Platelet Count 182 10^3/cmm (130-400); Red Blood Count 3.35 10^6/uL (4.1-5.3); Red Cell Distribution Width 12.7 % (12.1-15.1); White Blood Count 4.6 10^3/uL (4.0-10.0)
[2019-11-18] MEDS: sodium chloride 0.9% 1,000 ML 100 ML IV (21:12)
[2019-11-18] MEDS: metoprolol tartrate 1 mg/1 mL SDV 5 mL 5 MG (21:13)
[2019-11-18] MEDS: metoprolol tartrate 1 mg/1 mL SDV 5 mL 5 MG IV (21:16)
[2019-11-18 21:45] LABS: Alanine Aminotransferase 150 U/L (0-33); Albumin Level 3.2 g/dL (3.5-5.2); Alkaline Phosphatase 133 IU/L (35-105); Anion Gap 14.1 (5-19); Aspartate Amino Transferase 138 U/L (0-32); Blood Urea Nitrogen 13 mg/dL (8-23); Carbon Dioxide 26 mmol/L (22-29); Chloride 103 mmol/L (98-107); Free T4 Free Thyroxine 1.99 ng/dL (0.82-1.77); Globulin 2.8 g/dL (1.3-4.6); Glucose 104 mg/dL (74-106); Potassium 4.1 mmol/L (3.5-5.1); Sodium 139 mmol/L (136-145); Thyroid Stimulating Hormone 0.03 uIU/mL (0.27-4.20); Total Bilirubin 0.5 mg/dL (0.15-1.2)
[2019-11-19] VITALS (28 sets, daily range): BP systolic 81–181; BP diastolic 38–103; PULSE 91–123; RESP 15–26; TEMP 36.7–38.4; O2SAT 93–100
--- NOTE | 2019-11-19 00:43 | PC.NURSE ---
RIGHT GROIN SITE DRESSING CHANGED. OOZING STOPPED STILL HAS BRUISING AREA AROUND SITE. SHEATH INTACT NITRO INFUSING AND NS INFUSING WITHOUT DIFFICULTY. PATIENT FLAT SUPINE POSITION. SPOKE WITH PATIENT RE: CABG TOMORROW. ALL ORDERS IN AND EDUCATION STARTED WITH PATIENT AND FAMILY ABOUT CABG AND PRE PROCEDURAL LABS.
--- NOTE | 2019-11-19 02:08 | PC.NURSE ---
Dr. Okeefe called due to patient having 10/10 chest pain bp 187/[address] patients nitro increased to 80 mcg and 4mg morphine given. chest pain eased up and patient bp 124/71. sheath is intact and no swelling or oozing noted. tr band air out and no hematoma.
[2019-11-19] MEDS: morphine 4 mg/mL SDV 1 mL IVP ×2 (02:13→06:17)
[2019-11-19 05:14] LABS: Alanine Aminotransferase 131 U/L (0-33); Albumin Level 3.1 g/dL (3.5-5.2); Alkaline Phosphatase 126 IU/L (35-105); Anion Gap 13.1 (5-19); Aspartate Amino Transferase 107 U/L (0-32); Blood Urea Nitrogen 13 mg/dL (8-23); Calcium 8.9 mg/Dl (8.8-10.2); Carbon Dioxide 25 mmol/L (22-29); Chloride 106 mmol/L (98-107); Globulin 2.8 g/dL (1.3-4.6); Glucose 103 mg/dL (74-106); Potassium 4.1 mmol/L (3.5-5.1); Sodium 140 mmol/L (136-145); Total Bilirubin 0.5 mg/dL (0.15-1.2); Total Protein 5.9 g/dL (6.6-8.7)
[2019-11-19 05:49] LABS: Basophils % 0.9 %; Eosinophils # 0.1 10^3/uL (0.0-0.8); Eosinophils % 1.3 %; Hemoglobin 9.3 g/dL (11.5-15.3); Lymphocytes # 0.9 10^3/uL (0.8-4.8); Lymphocytes % 18.9 %; Mean Corpuscular Hemoglobin 29.7 pg (28.0-34.0); Mean Corpuscular Volume 95.8 fL (81-99); Mean Platelet Volume 12.8 fL (7.4-10.4); Monocytes # 0.4 10^3/uL (0.2-0.9); Monocytes % 7.8 %; Neutrophils # 3.2 10^3/uL (1.8-7.7); Neutrophils % 70.9 %; Nucleated Red Blood Cells % 0 %; Platelet Count 156 10^3/cmm (130-400); Red Blood Count 3.13 10^6/uL (4.1-5.3); Red Cell Distribution Width 12.6 % (12.1-15.1); White Blood Count 4.5 10^3/uL (4.0-10.0)
[2019-11-19 06:39] LABS: Slide Review Slide Review Perform
--- NOTE | 2019-11-19 07:00 | USCV_ITS ---
Arvind Eliana Age: 69 Gender: F : 1950 Exam Date: 11/19/2019 06:09 Ordering Phys: Juan Stanford MD ([place]) ([email or web address] [place] [email or web address] Technologist: Sergei Stout Exam Location: [facility] [place] Indication: PRE CABG RIGHT LEFT LOWER EXTREMITY Diameter Diameter (cm) (cm) 0.49 High Thigh 0.26 0.44 Mid Thigh 0.30 0.50 Above Knee 0.30 0.24 Below Knee 0.27 0.15 Mid Calf 0.29 0.19 Ankle 0.26 RIGHT LEFT Findings Patent and easily compressible veins were bilaterally Small caliber below-knee veins on the right side Conclusions Patent veins bilaterally with no evidence of thrombosis Normal caliber veins bilaterally at the above knee levels. Relatively small caliber veins at the below-knee level on the right side Venous dimensions as mentioned above Dr Hoa Gill MD [facility] (Electronically Signed) Final Date: 20 November 2019 09:06 S
--- NOTE | 2019-11-19 07:54 | PC.OT ---
OT note: Order received for post op CABG education. Discussed with patient that she will be receiving OT and PT after surgery and discussed purpose of therapies, discussed sternal precautions and given handout, and patient was encouraged to begin practicing mobility without using UEs to assist. Pt voiced understanding. Pt reported she typically needs to use both arms to help push to stand. Educated that therapists will help her build strength and practice mobility as well as following sternal precautions during ADLs and functional mobility.
[2019-11-19] MEDS: sodium chloride 0.9% 1,000 ML 100 ML IV (07:56)
[2019-11-19] MEDS: mupirocin oint 22 gm 1 APPLIC NASAL (09:06)
--- NOTE | 2019-11-19 09:49 | XACV_ITS ---
Exam Room: ICU11 Ht: 168 cm Wt: 86 kg BSA: 2.03 m2 Gender: Female : 1950 Any Known Allergies: No known allergies Exam Priority: Routine Procedure(s): Procedure Description: Diagnostic procedure Procedure Description: Miscellaneous Procedure Description: IABP Insertion Diagnostic Cath Status: Urgent Diagnostic Findings Patient underwent coronary angiography last evening by Dr. Gill. There is left main and three-vessel disease. She is to have coronary bypass surgery later today. I was asked by the surgeon, Dr. Stanford, to place an intra-aortic balloon pump counterpulsation device in preparation for surgery. Patient was prepped and draped. The existing 5 [place] sheath had been left in the groin from the cardiac catheterization. This was exchanged for the 7 [place] balloon pump sheath. The balloon pump was inserted with some difficulty due to the tortuosity of the aorta. The tip of the balloon pump was placed at the level of the jorge. The balloon pump was turned on and is placed at 2:1. There were no complications. The device was sutured in place. Patient was taken back to the ICU awaiting open heart surgery. Conclusions Intra-aortic balloon pump placed via the right common femoral artery without incident. Clinical Evaluation EBL: 5mL-10mL Procedural Details Pt arrived with nitro running at 80 mcg/min and IV fluids at 100 ml/hr. Pt arrived with 5 fr sheath in right femoral artery. Wire inserted through sheath. IABP inserted over wire. Wire out. IABP on. IABP is pressure triggered with 1:2 augmentation. IABP sutured in. Medication's Wasted: Heparin = 1000 units. Medication's Wasted: Other = fentanyl 50 mcg. Correct Patient: Yes; Correct Procedure: Yes; Correct Site: Yes; Correct Patient Position: Yes; Correct Supplies: Yes; Dried Flammable Prep: Yes; Blood Products Available: N/A;. Pre-Procedure Time Out. Identified patient by full name and date of as verbalized by the patient/guarantor. Does the consent match the physician's order: Yes. Accurate & Complete Informed Consent: Yes. Inpatient/Outpatient History & Physical on Chart: Yes. If H&P is completed, is and addenduem needed: No; If yes, is the addendum complete: N/A. Visualize and Verify Site with Patient/Guarantor: N/A. Relevant Radiology Images available: N/A. Pre-op teaching completed and patient verbalized understanding. The risks, benefits, and alternatives of sedation and/or procedure were discussed by physician. The patient agrees to continue. Procedure started. Correct patient, site and procedure confirmed by cath team. PERRLA. 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 Lungs clear x 5 lobes. IV Site on Arrival: 18 gauge in the left anticubital. Oxygen started at 2liters/min via nasal canula. bilateral groins was prepped with chloroprep then draped in the usual sterile fashion. Baseline sample Acquired. HR: 105 BPM. Physician arrived. Physician scrubbed in. Immediate Pre-Procedure Time Out. Lidocaine 1% infiltrated to the right groin. Physician scrubbed out. A Suture was successful obtaining hemostatsis at the Right Femoral artery insertion site. Sheath(s) sutured into position with 2-0 silk and sterile 4x4's and Op-site applied over the site. No oozing or signs and symptoms of hematoma noted. Post Procedure: Pulses reassessed and unchanged. PERRLA. 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 No VTE prophylaxis required. Total IV fluids: 50 mL. Post-op diagnosis: CAD. Complications: none. Estimated blood loss: 5mL-10mL. Medication's Wasted: Other = versed 1 mg. Procedure completed. Patient transferred by bed to ICU. Vital chart was stopped. Site: Right Femoral artery Sheath Size: 7 Fr Hemostasis Method: Suture Hemostasis Success: Successful Procedure Medications Start: 10:05 AM Stop: 10:05 AM Medication: Versed Amount: 1 mg Route: I.V. Start: 10:05 AM Stop: 10:05 AM Medication: Fentanyl Amount: 50 mcg Route: I.V. I, the attending physician, have reviewed and verified all procedure medications. Yes, all medications given per verbal order History/Risk Factors Hypertension: Yes Dyslipidemia: No Peripheral Arterial Disease (PAD): No Myocardial Infarction (NH): No Obesity: No Renal Disease: Yes Tobacco Use: Former Prior Interventions PCI: No CABG: No Valve Surgery: No Report Signatures Finalized by:Dr. Jimmy Grullon MD on 11/19/2019 11:57:40 AM
--- NOTE | 2019-11-19 10:13 | ANES.PREANES ---
Pre-Anesthetic Assessment Pre-Anesthetic Assessment: Height/Weight: Height 1.68 m Weight 86.183 kg Temp Pulse Resp BP Pulse Ox 99.3 F 99 17 130/68 97 11/19/19 08:00 11/19/19 08:00 11/19/19 08:00 11/19/19 08:00 11/19/19 08:00 Preop Diagnosis: left main stenosis Proposed Procedure: Operation Date: 11/18/19 16:30 Proposed Procedures p Cardiac Catheterization(Left) - Hoa Gill MD Operation Date: 11/19/19 14:10 Proposed Procedures p CABG(Not Applicable) - Juan Stanford MD Was Beta Josseline taken within 24 hours: Yes Last Intake: 23:00 Exam: Pre-Anes Outpt Exam: alert, oriented x 3, clear to auscultation bilaterally and regular rate & rhythm Airway: Submandibular: WNL Cervical ROM: WNL MP: 2 CV/HEM: CV/HEM: Angina (Unstable), CAD and HTN : : Chronic renal Insufficiency Metabolic: Metabolic: Thyroid Anesthetic Plan: ASA status: IV Anesthesia: General Meds/Allergies Current Medications: Current Medications Generic Name Dose Route Start Last Admin Trade Name Freq PRN Reason Stop Dose Admin Acetaminophen 650 mg 11/17/19 08:38 11/17/19 16:11 Tylenol PO 650 mg Q6H PRN Administration MILD PAIN Atorvastatin Calci um 80 mg 11/16/19 22:00 11/19/19 02:06 Lipitor PO Not Given BEDTIME TOSHIA Chlorhexidine Gluc candice 15 ml 11/19/19 09:00 11/19/19 09:09 Perigard MUCOUS MEM Not Given BID TOSHIA Cyanocobalamin 1,000 mcg 11/17/19 09:00 11/19/19 09:09 Vitamin B-12 PO Not Given DAILY TOSHIA Nitroglycerin/Dext monica 50 mg in 250 mls @ 0 mls/hr 11/18/19 02:45 11/19/19 02:[address] ip IV 80 mcg/min .Q0M TOSHIA 24 mls/hr Titration Protocol Per Protocol Sodium Chloride 1,000 mls @ 100 m ls/hr 11/18/19 18:15 11/19/19 07:56 Sodium Chloride 0.9% IV 100 mls/hr .Q10H TOSHIA Administration Levothyroxine Sodi um 88 mcg 11/17/19 09:00 11/19/19 09:09 Synthroid PO Not Given DAILY [facility] Liothyronine Sodiu m 5 mcg 11/17/19 09:00 11/19/19 09:09 Cytomel PO Not Given DAILY [facility] Metoprolol Tartrat e 50 mg 11/17/19 09:30 11/19/19 09:09 Lopressor PO Not Given BID TOSHIA Morphine Sulfate 4 mg 11/16/19 21:58 11/19/19 06:17 Morphine IVP 4 mg Q4H PRN Administration SEVERE PAIN Mupirocin 1 applic 11/19/19 09:00 11/19/19 09:06 Bactroban NASAL 1 dose BID TOSHIA Administration Nitroglycerin 1 inch 11/17/19 18:45 11/19/19 02:22 Nitro-Bid TOPICAL Not Given Q6H TOSHIA Ondansetron HCl 4 mg 11/16/19 21:58 11/18/19 07:19 Zofran IVP 4 mg Q6H PRN Administration NAUSEA AND VOMITI NG PFSH Anesthesia PFSH: Medical History (Updated 11/18/19 @ 20:46 by Juan Stanford MD) Chronic kidney disease (Acute) Patient is known to have kidney disease Tubal ligation evaluation (Acute) Surgical History H/O hysterectomy for benign disease (Acute) Family History Brother CAD (coronary artery disease), Onset Age: 59 of myocardial infarction at age 59 Father CAD (coronary artery disease), Onset Age: 55 Had open heart surgery x3 Grandfather CAD (coronary artery disease), Onset Age: 55 Also of myocardial infarction in the late 50s Social History Smoking and tobacco status: former smoker Data Anesthesia CBC & Chem 7: 11/19/19 04:03 11/19/19 04:03 Other Labs: Laboratory Results - last 48 hr 11/17/19 11/18/19 11/18/19 10:36 04:09 08:44 WBC RBC Hgb Hct MCV MCH MCHC RDW Plt Count MPV Neut % (Auto) Lymph % (Auto) Warren % (Auto) Eos % (Auto) Baso % (Auto) Neut # (Auto) Lymph # (Auto) Warren # (Auto) Eos # (Auto) Baso # (Auto) Nucleated RBC % (auto) Nucleated RBCs # PT INR APTT Sodium 138 Potassium 4.1 Chloride 103 Carbon Dioxide 26 Anion Gap 13.1 BUN 16 Creatinine 1.1 H Glucose 99 Calcium 9.3 Total Bilirubin Direct Bilirubin AST ALT Alkaline Phosphatase Troponin T Gen 5 ng/L 490 H* 418 H* Total Protein Albumin Globulin Triglycerides Cholesterol LDL Cholesterol, Calc HDL Cholesterol LDL/HDL Ratio Cholesterol/HDL Ratio TSH Free T4 Blood Type Antibody Screen Crossmatch 11/18/19 11/18/19 11/18/19 08:44 20:20 20:20 WBC 4.6 RBC 3.35 L Hgb 10.4 L Hct 33.1 L MCV 98.8 MCH 31.0 MCHC 31.4 RDW 12.7 Plt Count 182 MPV 12.1 H Neut % (Auto) 67.4 Lymph % (Auto) 22.6 Warren % (Auto) 7.5 Eos % (Auto) 1.9 Baso % (Auto) 0.4 Neut # (Auto) 3.1 Lymph # (Auto) 1.1 Warren # (Auto) 0.4 Eos # (Auto) 0.1 Baso # (Auto) 0.0 Nucleated RBC % (auto) 0 Nucleated RBCs # 0.0 PT 14.30 H INR 1.07 APTT 35.8 Sodium Potassium Chloride Carbon Dioxide Anion Gap BUN Creatinine Glucose Calcium Total Bilirubin Direct Bilirubin AST ALT Alkaline Phosphatase Troponin T Gen 5 ng/L Total Protein Albumin Globulin Triglycerides 76 Cholesterol 163 LDL Cholesterol, Calc 94 HDL Cholesterol 54 L LDL/HDL Ratio 1.74 Cholesterol/HDL Ratio 3.02 TSH 0.04 L Free T4 2.13 H Blood Type Antibody Screen Crossmatch 11/18/19 11/18/19 11/19/19 20:20 20:20 04:03 WBC 4.5 RBC 3.13 L Hgb 9.3 L Hct 30.0 L MCV 95.8 MCH 29.7 MCHC 31.0 RDW 12.6 Plt Count 156 MPV 12.8 H Neut % (Auto) 70.9 Lymph % (Auto) 18.9 Warren % (Auto) 7.8 Eos % (Auto) 1.3 Baso % (Auto) 0.9 Neut # (Auto) 3.2 Lymph # (Auto) 0.9 Warren # (Auto) 0.4 Eos # (Auto) 0.1 Baso # (Auto) 0.0 Nucleated RBC % (auto) 0 Nucleated RBCs # 0.0 PT INR APTT Sodium 139 Potassium 4.1 Chloride 103 Carbon Dioxide 26 Anion Gap 14.1 BUN 13 Creatinine 1.1 H Glucose 104 Calcium 9.0 Total Bilirubin 0.5 Direct Bilirubin 0.20 AST 138 H ALT 150 H Alkaline Phosphatase 133 H Troponin T Gen 5 ng/L Total Protein 6.0 L Albumin 3.2 L Globulin 2.8 Triglycerides Cholesterol LDL Cholesterol, Calc HDL Cholesterol LDL/HDL Ratio Cholesterol/HDL Ratio TSH 0.03 L Free T4 1.99 H Blood Type O Positive Antibody Screen Negative Crossmatch See Detail 11/19/19 04:03 WBC RBC Hgb Hct MCV MCH MCHC RDW Plt Count MPV Neut % (Auto) Lymph % (Auto) Warren % (Auto) Eos % (Auto) Baso % (Auto) Neut # (Auto) Lymph # (Auto) Warren # (Auto) Eos # (Auto) Baso # (Auto) Nucleated RBC % (auto) Nucleated RBCs # PT INR APTT Sodium 140 Potassium 4.1 Chloride 106 Carbon Dioxide 25 Anion Gap 13.1 BUN 13 Creatinine 1.1 H Glucose 103 Calcium 8.9 Total Bilirubin 0.5 Direct Bilirubin AST 107 H ALT 131 H Alkaline Phosphatase 126 H Troponin T Gen 5 ng/L Total Protein 5.9 L Albumin 3.1 L Globulin 2.8 Triglycerides Cholesterol LDL Cholesterol, Calc HDL Cholesterol LDL/HDL Ratio Cholesterol/HDL Ratio TSH Free T4 Blood Type Antibody Screen Crossmatch Cardiac Studies: No Data to Display
--- NOTE | 2019-11-19 11:17 | PC.NURSE ---
normal sensation in right leg
[2019-11-19] MEDS: cefUROXime 1,500 MG in sodium chloride 0.9% (plus) 50 ML 100 MG IV ×2 (12:30→18:00)
[2019-11-19] MEDS: vancomycin 1,000 MG SDV 2000 MG XX (12:47)
[2019-11-19] MEDS: heparin, porcine 1,000 unit/mL INJ 10 mL 10000 UNIT IRRIGATION (12:47)
[2019-11-19] MEDS: sodium bicarbonate 1 mEq/mL SDV 50mL 50 MEQ XX (12:47)
--- NOTE | 2019-11-19 12:56 | P.PN_ITS ---
Subjective Subjective: Interval history: Less but persistent pain this morning. Symptomatic overnight. Vitals/I&O/Wt Last Vital Signs Temp 99.3 F 11/19/19 08:00 Pulse 99 11/19/19 11:15 Resp 26 H 11/19/19 10:00 BP 121/54 11/19/19 10:00 Pulse Ox 96 11/19/19 11:15 11/18/19 11/19/19 11/19/19 22:59 06:59 14:59 Intake Total 158.75 / 595.65 196.65 / 792.30 1999 Output Total 300 / 1350 600 / 1950 1250 / 1250 Balance -141.25 / -754.35 -403.35 / -1157.70 750 / 750 Physical Exam Const: COMMON NORMALS: no apparent distress and oriented x3 OTHER: Family at bedside. HENMT: COMMON NORMALS: oropharynx normal Neck/C-Spine: COMMON NORMALS: no JVD Resp: COMMON NORMALS: normal respiratory effort and clear to auscultation bilaterally AUSCULTATION: clear to auscultation bilaterally Cardio: COMMON NORMALS: no JVD, regular rhythm, S1 normal heart sound, S2 normal heart sound and no murmurs RHYTHM: regular rhythm HEART SOUNDS: S1 normal and S2 normal GI: COMMON NORMALS: normal to inspection, nondistended, normoactive bowel sounds, soft to palpation and non-tender PALPATION: Yes soft Extremity: COMMON NORMALS: no joint enlargement and no pedal edema Neuro: COMMON NORMALS: oriented x3 and moves all extremities Skin: COMMON NORMALS: no rashes or lesions noted GENERAL SKIN EXAM: no rashes or lesions noted Urinary Catheter Management^: Mayorga Latex: Cath Placed During This Visit: no A&P Assessment and plan (1) NSTEMI (non-ST elevated myocardial infarction): With persistent/recurrent symptoms. On nitroglycerin drip. Left main disease on coronary geography. With recommendation for CABG. Due to persistent symptoms with plan for IABP today. Plans for definitive time on CABG ongoing. Status: Acute Code(s): I21.4 - Non-ST elevation (NSTEMI) myocardial infarction (2) Accelerated essential hypertension: Blood pressure at goal. Status: Chronic Code(s): I10 - Essential (primary) hypertension (3) Hypothyroid: Status: Chronic Qualifiers: Hypothyroidism type: acquired Qualified Code(s): E03.9 - Hypothyroidism, unspecified Code(s): E03.9 - Hypothyroidism, unspecified Additional A&P Information Shortness of breath: Improved. She is not normally on oxygen at home. Saturation 99% on 1 L nasal cannula. Attestations Medical Necessity Statement*: Continue admission for assessment management of non-STEMI, coronary disease. Coding Level of Care Code Acute Assistant Teaching Professor for [facility] Fwd Diagnoses NSTEMI (non-ST elevated myocardial infarction) I21.4 Accelerated essential hypertension I10 Hypothyroid E03.9 Hypothyroidism type: acquired
--- NOTE | 2019-11-19 13:15 | XR_ITS ---
WS: [id number] Portable AP upright chest, 11/19/2019 Clinical Data: post cabg Comparison: Portable chest, 11/16/2019 Findings: The patient is had cardiac surgery. The endotracheal tube, mediastinal tubes, Caldwell-Werner cat heter and left chest tube are in good position. The aortic arch shows enlargement and tortuosity as a result of surgery. No nodules, masses or effusions are seen. No pneumonia or pneumothorax is present . The pulmonary vascularity is not increased. Midline sternotomy sutures and mediastinal clip is seen . There is a dextroscoliosis. XR/XR chest 1V portable [id number] Impression: 1. Postop cardiac surgery. 2. Satisfactory position of multiple tubes.
--- NOTE | 2019-11-19 14:04 | PC.CHAP ---
Pastoral Care Encounter/Spiritual Assessment Type of Contact [] Declined recovery room nurse visit [] Patient/Family/Request visit [] Outpatient visit [] Follow-up visit [] Physician referral [] Code/Alert [] Routine visit [] Staff referral [] Actively dying [] Patient sleeping [] Family support [] [x] Out of room [] Palliative care [] [] Receiving care in room [] Pre-surgical visit [] Trauma [] Long length of stay [] ICU visit [] Other: Relational/Emotional Strength [] Patient feels connected with others/family/visitors/staff [] Distress [] Loneliness/isolation [] Abandonment Spirituality of Patient [] Person of Kaylen [] Attends Rastafarian of their Kaylen [] Believes in Prayer [] Reads Bible or Episcopalian materials [] There are Spiritual issues to be addressed Telephonic Rn Interventions [] Prayer [] Active listening [] Non-anxious presence [] Spiritual/emotional support [] Crisis/trauma care [] Spiritual counseling [] Bereavement support [] Provided bereavement packet [] Provided Bible/devotional materials [] Provided toy/stuffed animal, coloring book to patient or family member [] Completed spiritual assessment [] Provided Communion [] Anointing/[place] [] Salvation [] Other: Impact on Illness or Injury [] Angry [] Fearful [] Anxious [] Often cries [] Exhaustion [] Unable to work [] Unable to attend scientology [] Unable to walk/stand [] Unable to read [] Unable to drive [] Unable to eat/drink [] Unable to sleep [] Unable to be with family [] Other: Summary The patient was out of the room. Time spent with patient
--- NOTE | 2019-11-19 14:16 | PC.SOCIAL ---
IMM Not Given Page 2 of IMM not given as patient is currently in surgery and is not expected to discharge within 48 hours.
--- NOTE | 2019-11-19 14:40 | SUR.OPER ---
[id number] - Pt's daughter Bela notified of surgery start on her cell phone
--- NOTE | 2019-11-19 14:53 | SUR.OPER ---
1450 Ricci Cramer updated on surgery progress and pt status via her cell phone.
--- NOTE | 2019-11-19 16:57 | SUR.OPER ---
[id number] - Bela updated on surgery progress and pt status via her cell phone
--- NOTE | 2019-11-19 17:52 | SUR.OPER ---
1751 - Bela updated on surgery progress and pt status via her cell phone.
--- NOTE | 2019-11-19 18:44 | PM.PN ---
Subjective Subjective: Interval history: Patient has been having episodes of chest pain through the night. This morning seems to be feeling better. She had a cardiac authorization yesterday and was found to have high-grade lesion in the distal left main, proximal segment of the LAD including including the ostium,proximal segment of the intermedius artery and the ostium of the PDA branch of the right coronary artery. She was seen by Dr. Stanford and is planning to have coronary artery bypass surgery today. . Medications: Reviewed: Yes Vitals/I&O/Wt Last Vital Signs Temp 99.3 F 11/19/19 08:00 Pulse 99 11/19/19 11:15 Resp 26 H 11/19/19 10:00 BP 121/54 11/19/19 10:00 Pulse Ox 96 11/19/19 11:15 11/19/19 11/19/19 11/19/19 06:59 14:59 22:59 Intake Total 196.65 / 792.30 2090 / 2090 1100 / 3190 Output Total 600 / 1950 1250 / 1250 Balance -403.35 / -1157.70 840 / 840 1100 / 1940 Physical Exam Const: COMMON NORMALS: alert and well nourished GENERAL APPEARANCE: cooperative, well developed and well hydrated; not in distress HENMT: MOUTH: lip normal; no other (ulcers or bleeding) TEETH & GINGIVA: no other (bleeding observed and inflammation present) Eye: COMMON NORMALS: PERRL and conjunctivae normal CONJUNCTIVA: Yes conjunctivae normal SCLERA: sclerae normal PUPIL: Yes PERRL DIRECT OPHTHALMOSCOPY: Yes other (The fundus is not visualized) Neck/C-Spine: COMMON NORMALS: thyroid normal THYROID: thyroid normal CAROTIDS: Yes normal carotid upstroke (and runoff) Chest: COMMONS NORMALS: inspection of chest normal Resp: COMMON NORMALS: clear to auscultation bilaterally EFFORT & INSPECTION: Yes symmetric chest movement and No uses accessory muscles AUSCULTATION: clear to auscultation bilaterally, no crackles and no wheezes Cardio: JUGULAR VENOUS DISTENTION: JVD present PALPATION: no heave, no palpable S3 and no thrill HEART SOUNDS: no click and no murmurs BRUITS: no abdominal aortic bruits PERIPHERAL PULSES: femoral pulses present positive bilateral (Normal), posterior tibial pulses present (Weak) positive bilateral (Normal), dorsalis pedis pulses present (Weak) positive bilateral (Normal) and other (49 the femoral artery puncture site appears to have no hematoma or bleeding. Patient still has the arterial sheath) GI: AUSCULTATION: Yes normoactive bowel sounds and No abdominal bruit PALPATION: No tender, No hepatomegaly, No splenomegaly and No mass Back/Pelvis: GENERAL BACK: No swelling and No other (joint deformities) THORACIC SPINE/UPPER BACK: No kyphosis present LUMBAR SPINE/LOWER BACK: No lumbar scoliosis present Extremity: COMMON NORMALS: negative for no clubbing, cyanosis or edema and negative for no pedal edema GENERAL: No cyanosis Neuro: COMMON NORMALS: negative for no focal motor deficits SENSORIUM/ORIENTATION: Yes alert MOTOR EXAM: No tremor Psych: MOOD & AFFECT: Yes other (Normal mood and affect) Skin: COMMON NORMALS: skin turgor normal; negative for no petechiae GENERAL SKIN EXAM: turgor normal, skin not dry and no erythema RASHES: rash noted NAILS: normal, no clubbing, not discolored and no other (cyanosis) Urinary Catheter Management^: Mayorga Latex: Cath Placed During This Visit: no A&P Assessment and plan (1) NSTEMI (non-ST elevated myocardial infarction): Hemodynamically the patient seems to be stable. She continues to have intermittent episodes of chest pain. Dr. Stanford recommended for an intra-aortic balloon pump, prior to the open heart surgery. This seems to be appropriate. We will make arrangements to have the intra-aortic balloon pump placement as soon as possible. She may continue on the IV nitroglycerin at this time. Status: Acute Code(s): I21.4 - Non-ST elevation (NSTEMI) myocardial infarction (2) Left main coronary artery disease: Patient has high-grade stenosis of the distal left main, proximal LAD, proximal intermedius artery. She also has a high-grade lesion in the ostium of the PDA. Management as per mentioned above Status: Acute Code(s): I25.10 - Atherosclerotic heart disease of [place] coronary artery without angina pectoris (3) Accelerated essential hypertension: The blood pressure is currently in the normal range. Status: Chronic Code(s): I10 - Essential (primary) hypertension (4) Chronic kidney disease: The bloody rate 18 and creatinine levels are stable. Her creatinine is 1.1 with a BUN of 13 today. Status: Acute Qualifiers: Chronic kidney disease stage: stage 2 (mild) Qualified Code(s): N18.2 - Chronic kidney disease, stage 2 (mild) Code(s): N18.9 - Chronic kidney disease, unspecified Additional A&P Information Other problems are dyslipidemia Elevated liver enzymes, etiology? The levels appear to be coming down Attestations Medical Necessity Statement*: Patient requires continued hospital stay for close monitoring and further management Coding Level of Care Code Acute Salesperson Parts for [facility] Fwd Diagnoses NSTEMI (non-ST elevated myocardial infarction) I21.4 Left main coronary artery disease I25.10 Accelerated essential hypertension I10 Chronic kidney disease N18.2 Chronic kidney disease stage: stage 2 (mild)
--- NOTE | 2019-11-19 20:24 | P.OP_ITS ---
Operative Report Date of procedure: 11/19/19 Preop Diagnosis: left main stenosis Post-op Findings: Same Procedure Done: Coronary artery bypass grafting x2 (1 artery and one vein) utilizing in situ left internal mammary artery to the left anterior descending artery and reverse of his vein graft aorta to the high ramus artery. Endoscopic saphenous vein harvesting from the left thigh and leg Surgeon: Juan Stanford Anesthesia: general IV fluids (mL): 4,000 Urine output (mL): 500 Complications: None Condition: critical Disposition: ICU Brief History: Obese 69-year-old female presented with increasing chest discomfort over 1 week and a one-year history of intermittent chest discomfort. She did rule in for non-STEMI. She had chest pain daily for 2 days and underwent left heart catheterization yesterday afternoon by Dr. Gill which revealed high-grade left main stenosis. I was consulted and examined her last night and made preparations for surgery today. She developed chest pain about 3 AM this morning. He has a left groin sheath in place from the cardiac catheterization. I recommended intra-aortic balloon pump placement, which was performed preoperatively prior to surgery. Details the risk of surgery were frankly carefully discussed with Ms. Samuels and her family. Increased risk related to left main stenosis, obesity, and recent Plavix administration were carefully and frankly discussed. Appropriate signs have been reviewed and signed. Procedure: PROCEDURE: Preoperative evaluation was obtained from our Anesthesia colleagues and adequate IVs were confirmed. The patient was then taken to the Operating Room Suite where general anesthesia was induced. Appropriate invasive monitoring lines were placed, including large bore peripheral IVs, central line, [place]-Werner catheter, Mayorga catheter and associated monitoring leads. After careful positioning on the Operating Room table, the patient was subsequently sterilely prepped and draped. Saphenous vein was harvested by endoscopic technique from the left thigh and leg. Branches were secured with ligature and clips and the vein was extracted from the tunnel without tension. It was then flushed with a Heparin and albumin solution and prepared for grafting. Vein harvest sites were irrigated, platelet poor plasma infused into the tunnel and port sites closed with 3-0 and 4-0 Vicryl Plus suture. Simultaneously with vein harvesting, a median sternotomy was created utilizing a #10 scalpel blade with hemostasis controlled with cautery. After reaching the sternal table, the sternum was divided with a reciprocating saw. Bleeding was controlled with cautery and judicious use of bone wax. Following this, the left chest wall was elevated with a Rultract retractor. The left internal mammary artery was dissected free with branches being secured with clips and cautery. The distal end was left intact. After harvesting of the mammary artery, a left pleural chest tube was then placed. The left chest wall was then lowered and moistened antibiotic-soaked laparotomy pads were placed in the wound, followed by an Ankeney retractor. The sternum was then and the pericardium opened and secured with stay sutures. After inspection, 2-0 pledgeted Ethibond sutures were placed at cannulation sites, at which time the patient was fully heparinized. Following this, the left internal mammary artery was taken down from its distal attachment, flushed with Papaverine solution, prepared for grafting and brisk flow confirmed. A soft bulldog was applied distally. Next, the heart was cannulated with a 22-Burmese aortic cannula, two-stage venous cannula and aortic root vent. The patient was subsequently placed on cardiopulmonary bypass and cooled systemically to 34 degrees. Aortic cross-clamp was then carefully placed and 4 degree Celsius cold blood cardioplegia was administered through the aortic root in antegrade fashion. Prompt diastolic arrest was obtained. Left ventricular decompression was confirmed. The heart was cooled systemically with iced saline with an insulation pad in place to protect the phrenic nerve. Throughout the cross-clamp period, at 20-30 minute intervals, antegrade blood cardioplegia was administered to maintain asystole. We then inspected the cardiac surface and coronary anatomy. Target vessels were relatively small, which was disappointing. The vein harvested was of good quality and the left internal mammary artery carried very good flow. Extensive dissection was performed on the lateral wall and attempt to find the obtuse marginal artery which could be seen in the AV groove. It did come out of the groove as a very small vessel and was not felt to be adequate for target. The ramus, however was a reasonable target at nearly 1.25 mm in size and was grafted end-to-side with a portion of vein utilizing 7-0 Prolene suture distally and 5-0 Prolene suture proximally to a 4 mm aortotomy. With the rewarming phase of bypass continuing, the left internal mammary artery was brought through a left anterior pericardial window into the field. The LAD was opened up in its mid one-third and was approximately, again only 1.25 mm in size. The RIVERA was then anastomosed to the LAD with a running 7-0 Prolene suture. It should be noted that all distal coronary anastomoses were performed over the appropriate size coronary shunt which was removed prior to securing the distal suture line. Following this, aortic cross-clamp was released and de- airing maneuvers were performed through the aortic root vent, as well as being confirmed by transesophageal echocardiography. Dobutamine at 3 mcg per kilogram per minute was administered with good chronotropic and inotropic affect. The heart returned to spontaneous sinus rhythm and did not require cardioversion but did receive DDD pacing for about 15 minutes. After adequate recovery from the cross-clamp period and confirmation of cardiac stability, the patient was weaned from bypass without difficulty. Venous cannula was removed. Heparin was reversed with Protamine and confirmed by measurement of activated clotting time. The heart was then decannulated and cannulation sites were oversewn as required. The proximal aorta was friable and did require several repair sutures which were pledgeted and a subsequent use of BioGlue. Pacing wires were placed and brought through the skin and secured. Radiopaque marker was placed on the vein graft at the level of aorta. Two mediastinal drains were placed and connected to Pleur- evac suction. The wound was carefully irrigated and hemostasis was confirmed. Ankeney retractor was removed and sponge and needle count was correct. The sternum was then reapproximated very carefully with interrupted #7 stainless steel wire with Surgicel strips used beneath the sternal table. Fascia was closed with #1 Vicryl suture with the next layers being closed with 2-0 and 3-0 suture. The skin was reapproximated carefully in a subcuticular manner. Sterile dressings were applied, followed by a vacuum-assisted dressing. The patient was carefully removed from the operating room table and transferred to the Intensive Care Unit. The family was then counseled as to the details of the procedure.
--- NOTE | 2019-11-19 20:30 | PC.NURSE ---
Received from the OR s/p CABG x2 and admitted to ICU 11 for recovery and post operative care. Pt sedated and intubated with [place] Werner catheter, CVL,arterial line and IABP.CT x [address] to sx. Epicardial pace maker in place and turned off. Dr Stanford and Dr Cornelius are at bedside. Please see ICU documentation for care and recovery. OR I and O totals Crystalloid 4000ml PRBC 1050ml (3 units) Cell Saver 900 ml out and 900 ml returned Urine out 560
--- NOTE | 2019-11-19 20:39 | ECG_ITS ---
Measurements Intervals [place] Rate: 92 P: 61 [place]: 139 QRS: 44 QRSD: 105 T: 67 QT: 358 QTc: 443 SINUS RHYTHM WITH OCCASIONAL VENTRICULAR PREMATURE COMPLEXES LOW QRS VOLTAGE [QRS DEFLECTION < 0.5/1.0 mV IN LIMB/CHEST LEADS] WARNING: DATA QUALITY MAY AFFECT INTERPRETATION Compared to ECG 11/18/2019 02:12:58 Ventricular premature complex(es) now present Low QRS voltage now present T-wave abnormality no longer present Electronically Signed On 11-20-2019 22:27:16 ER NURSE by Hoa Gill M.D. [email or web address]
[2019-11-19 20:55] LABS: Basophils % 0.6 %; Eosinophils % 0.2 %; Hematocrit 32.6 % (37.0-47.0); Hemoglobin 10.4 g/dL (11.5-15.3); Lymphocytes # 0.5 10^3/uL (0.8-4.8); Lymphocytes % 9.8 %; Mean Corpuscular HGB Conc 31.9 g/dL (30.0-36.0); Mean Corpuscular Hemoglobin 29.5 pg (28.0-34.0); Mean Corpuscular Volume 92.6 fL (81-99); Mean Platelet Volume 11.6 fL (7.4-10.4); Monocytes # 0.4 10^3/uL (0.2-0.9); Monocytes % 7.5 %; Neutrophils # 4.3 10^3/uL (1.8-7.7); Neutrophils % 81.1 %; Nucleated Red Blood Cells % 0 %; Platelet Count 83 10^3/cmm (130-400); Red Blood Count 3.52 10^6/uL (4.1-5.3); Red Cell Distribution Width 14.8 % (12.1-15.1); White Blood Count 5.3 10^3/uL (4.0-10.0)
[2019-11-19 21:17] LABS: INR 1.29 (0.8-1.2)
[2019-11-19 21:18] LABS: Partial Thromboplastin Time 31.5 SECONDS (23.9-36.7)
[2019-11-19 21:23] LABS: Anion Gap 15.9 (5-19); Blood Urea Nitrogen 13 mg/dL (8-23); Calcium 7.7 mg/Dl (8.8-10.2); Carbon Dioxide 19 mmol/L (22-29); Chloride 116 mmol/L (98-107); Glucose 132 mg/dL (74-106); Magnesium 3.2 mg/dL (1.7-2.3); Potassium 4.9 mmol/L (3.5-5.1); Sodium 146 mmol/L (136-145)
[2019-11-19] MEDS: propofol 1,000 MG/100 ML INJ 5.2 MG IV (21:26)
--- NOTE | 2019-11-19 21:30 | PC.NURSE ---
Pt is hemodynamicaly stable without signs of bleeding or other complications. Labs have been reviewed.Remains on vent in ICU with PA cath and multiple titrated gtts. Removed from recovery status at 2129.
[2019-11-19] MEDS: albumin 12.5 GM/250 ML VIAL IV (22:00)
[2019-11-19] MEDS: aspirin 81 mg Chew Tablet PO (23:20)
[2019-11-19] MEDS: fentaNYL 50 mcg/mL INJ 2mL IVP (23:28)
[2019-11-19 23:58] LABS: ABG PCO2 31.2 mmHg (35-45); ABG PH Result 7.34 (7.35-7.45); Arterial Blood Gas Hematocrit 32.2 % (37-47); Base Excess ABG -7.8 mmol/L (-2.0-2.0); Blood Gas Sample Site ARTLINE; Blood Gas Sample Type Arterial; Blood Gas Tidal Volume 0.5
[2019-11-20] VITALS (126 sets, daily range): BP systolic 83–166; BP diastolic 38–95; PULSE 85–115; RESP 10–18; TEMP 37.7–38.6; O2SAT 82–100
[2019-11-20] MEDS: albumin 12.5 GM/250 ML VIAL IV ×2 (00:11→05:47)
[2019-11-20 00:12] LABS: Anion Gap 18.6 (5-19); Blood Urea Nitrogen 15 mg/dL (8-23); Calcium 7.8 mg/Dl (8.8-10.2); Carbon Dioxide 16 mmol/L (22-29); Chloride 114 mmol/L (98-107); Glucose 162 mg/dL (74-106); Potassium 4.6 mmol/L (3.5-5.1); Sodium 144 mmol/L (136-145)
[2019-11-20 01:01] LABS: Basophils % 0.4 %; Hematocrit 30.8 % (37.0-47.0); Hemoglobin 9.7 g/dL (11.5-15.3); Lymphocytes # 0.3 10^3/uL (0.8-4.8); Lymphocytes % 5.5 %; Mean Corpuscular HGB Conc 31.5 g/dL (30.0-36.0); Mean Corpuscular Hemoglobin 29.4 pg (28.0-34.0); Mean Corpuscular Volume 93.3 fL (81-99); Mean Platelet Volume 12.5 fL (7.4-10.4); Monocytes # 0.4 10^3/uL (0.2-0.9); Monocytes % 7.9 %; Neutrophils # 4.6 10^3/uL (1.8-7.7); Nucleated Red Blood Cells % 0 %; Platelet Count 76 10^3/cmm (130-400); Red Cell Distribution Width 15.1 % (12.1-15.1); White Blood Count 5.3 10^3/uL (4.0-10.0)
[2019-11-20] MEDS: sodium chloride 0.9% 1,000 ML 75 ML IV ×2 (01:27→15:34)
[2019-11-20] MEDS: neomycin-poly-bacitracin oint 0.9 gm Pkt 1 APPLIC TOPICAL ×3 (01:47→17:07)
[2019-11-20] MEDS: fentaNYL 50 mcg/mL INJ 2mL IVP ×3 (03:09→23:12)
[2019-11-20 04:25] LABS: ABG PCO2 34.3 mmHg (35-45); ABG PH Result 7.38 (7.35-7.45); Arterial Blood Gas Hematocrit 31.2 % (37-47); Base Excess ABG -4.3 mmol/L (-2.0-2.0); Blood Gas Sample Site ARTLINE; Blood Gas Sample Type Arterial; Blood Gas Tidal Volume 0.45; Carboxyhemoglobin 0.7 %THgb (0.4-20.1); HCO3 ABG 20.3 mmol/L (22-26); HGB O2 Sat 97.1 % (95-100); Ionized Calcium Level - ABG 1.2 mmol/L (1.1-1.4); Oxygen Saturation ABG 98.8; Total Hemoglobin 10.2 g/dL (12-16)
[2019-11-20 04:58] LABS: Basophils % 0.1 %; Hematocrit 30.2 % (37.0-47.0); Hemoglobin 9.6 g/dL (11.5-15.3); Lymphocytes # 0.4 10^3/uL (0.8-4.8); Lymphocytes % 6.3 %; Mean Corpuscular HGB Conc 31.8 g/dL (30.0-36.0); Mean Corpuscular Hemoglobin 30.5 pg (28.0-34.0); Mean Corpuscular Volume 95.9 fL (81-99); Mean Platelet Volume 12.4 fL (7.4-10.4); Monocytes # 0.5 10^3/uL (0.2-0.9); Monocytes % 7.8 %; Neutrophils # 5.9 10^3/uL (1.8-7.7); Neutrophils % 85.4 %; Nucleated Red Blood Cells % 0 %; Platelet Count 85 10^3/cmm (130-400); Red Blood Count 3.15 10^6/uL (4.1-5.3); Red Cell Distribution Width 15.4 % (12.1-15.1); White Blood Count 6.9 10^3/uL (4.0-10.0)
[2019-11-20 05:00] LABS: INR 1.22 (0.8-1.2)
[2019-11-20 05:01] LABS: Partial Thromboplastin Time 30.5 SECONDS (23.9-36.7)
[2019-11-20 05:40] LABS: Anion Gap 15.1 (5-19); Blood Urea Nitrogen 17 mg/dL (8-23); Calcium 8.2 mg/Dl (8.8-10.2); Carbon Dioxide 20 mmol/L (22-29); Chloride 114 mmol/L (98-107); Glucose 118 mg/dL (74-106); Magnesium 3.2 mg/dL (1.7-2.3); Potassium 4.1 mmol/L (3.5-5.1); Sodium 145 mmol/L (136-145)
--- NOTE | 2019-11-20 05:58 | PC.NURSE ---
Balloon pump to 1:3
--- NOTE | 2019-11-20 06:00 | ECG_ITS ---
Measurements Intervals [place] Rate: 114 P: 68 AL: 131 QRS: 8 QRSD: 125 T: 76 QT: 313 QTc: 432 SINUS TACHYCARDIA WITH OCCASIONAL VENTRICULAR PREMATURE COMPLEXES POSSIBLE LEFT ATRIAL ENLARGEMENT [-0.1mV P WAVE IN V1/V2] POSSIBLE RIGHT VENTRICULAR CONDUCTION DELAY [RSR (QR) IN V1/V2] MODERATE ST DEPRESSION [0.05+ mV ST DEPRESSION] WARNING: DATA QUALITY MAY AFFECT INTERPRETATION Compared to ECG 11/18/2019 02:12:58 Ventricular premature complex(es) now present ST (T wave) deviation now present Sinus rhythm no longer present T-wave abnormality no longer present Electronically Signed On 11-20-2019 22:26:50 REHAB TRAINER by Hoa Gill M.D. [email or web address]
--- NOTE | 2019-11-20 06:00 | XR_ITS ---
WS: [id number] Portable AP upright chest, 11/20/2019 Clinical Data: s/p cabg Comparison: Portable chest, 11/19/2019 Findings: The left chest tube, [place]-Werner catheter, nasogastric tube and endotracheal tube remain in g ood position. No pneumonia or pneumothorax is present. The heart size is normal. The aortic arch show s tortuosity. Monitor leads on the chest wall. Midline sternotomy sutures are seen. The pulmonary vas cularity is not increased. The dextroscoliosis is noted again. XR/XR chest 1V portable [id number] Impression: 1. Satisfactory position of multiple tubes. 2. Satisfactory postop cardiac surgery.
--- NOTE | 2019-11-20 06:32 | PC.NURSE ---
[id number] Dr Stanford at bedside to pull balloon pump
[2019-11-20 06:33] LABS: Slide Review Slide Review Perform
[2019-11-20] MEDS: propofol 1,000 MG/100 ML INJ 15.5 MG IV ×3 (07:23→22:55)
--- NOTE | 2019-11-20 07:28 | ANE.PACU ---
 Inpatient post-anesthesia follow up: Airway intact: Yes Vital signs: Temperature 100.2 F Pulse Rate [Bilate ral Dorsalis 92 Pedis] Pulse Rate [Apical ] 92 Pulse Rate 96 Respiratory Rate 16 Blood Pressure [Le ft Arm] 131/66 Blood Pressure 113/49 Pulse Oximetry 96 Oxygen Delivery Me thod [ Room Air Current Rate & Del neema] Oxygen Delivery Me thod Mechanical Ventila tion Oxygen Flow Rate [ Current Rate 2 & Delivery] Oxygen Flow Rate 12 Fraction of Inspir ed Oxygen 45 Hydration adequate: Yes Nausea and vomiting: No Pain level: 3 Additional Comments: Rounded with penelope Villarreal evening postoperatively. IABP removed this AM. Dobutamine at 0.5ug/kg/min. Remains intubated on low dose Propofol. Communicates with nurses nonverbally, moves extremities to commands.
--- NOTE | 2019-11-20 09:14 | P.PN_ITS ---
Subjective Subjective: Interval history: Postop day 1 status post right upper lobe apical segmentectomy for non-small cell carcinoma. Improved pain control with the addition of Toradol and tramadol Epidural catheter dosing has been decreased by Dr. Marques due to some hypotension Patient, is otherwise doing well. No air leak noted on chest tube. Vitals/I&O/Wt Last Vital Signs Temp 100.4 F H 11/20/19 08:00 Pulse 98 11/20/19 09:00 Resp 16 11/20/19 09:04 BP 135/75 11/20/19 09:00 Pulse Ox 96 11/20/19 09:00 11/19/19 11/20/19 11/20/19 22:59 06:59 14:59 Intake Total 6275 / 8365 225.000 / 8590.000 19.117 / 19.117 Output Total 1340 / 2590 368 / 2958 185 / 185 Balance 4935 / 5775 -143.000 / 5632.000 -165.883 / -165.883 Physical Exam Resp: COMMON NORMALS: normal respiratory effort, no use of accessory muscles and clear to auscultation bilaterally AUSCULTATION: clear to auscultation bilaterally Urinary Catheter Management^: Mayorga Latex: Cath Placed During This Visit: no Data Micro: Micro: Microbiology 11/20/19 09:01 Blood Culture - Pr eliminary Blood SPECIMEN [facility] 11/20/19 08:58 Blood Culture - Pr eliminary Blood SPECIMEN [facility] A&P Assessment and plan (1) Non-small cell cancer of right lung: Postop day #1 status post apical segmentectomy of the right lung due to non-small cell lung cancer We will transfer to [facility]. DC Mayorga catheter Hep-Lock IV fluids Will place chest tube to waterseal later today Chest x-ray in a.m. Status: Acute Code(s): C34.91 - Malignant neoplasm of unspecified part of right bronchus or lung Attestations Medical Necessity Statement*: Status post segmentectomy for non-small cell lung cancer right lung Time Spent in Patient Care: less than 15 minutes Coding Level of Care Code Acute Take Out Waiter/Waitress for [facility] Diagnoses Non-small cell cancer of right lung C34.91
--- NOTE | 2019-11-20 09:35 | PM.PN ---
Subjective Subjective: Interval history: Intubated, sedated. Vitals/I&O/Wt Last Vital Signs Temp 100.4 F H 11/20/19 08:00 Pulse 100 11/20/19 09:30 Resp 14 11/20/19 09:30 BP 130/53 11/20/19 09:30 Pulse Ox 95 11/20/19 09:30 11/19/19 11/20/19 11/20/19 22:59 06:59 14:59 Intake Total 6275 / 8365 225.000 / 8590.000 19.117 / 19.117 Output Total 1340 / 2590 368 / 2958 185 / 185 Balance 4935 / 5775 -143.000 / 5632.000 -165.883 / -165.883 Physical Exam Const: COMMON NORMALS: no apparent distress OTHER: Intubated, sedated, not in distress. HENMT: COMMON NORMALS: oropharynx normal Neck/C-Spine: COMMON NORMALS: no JVD OTHER: Right IJ CVC. Chest: OTHER: Mediastinal drains. Resp: COMMON NORMALS: normal respiratory effort OTHER: Few rhonchi on the left. No wheezing or crackles. Cardio: COMMON NORMALS: no JVD, regular rhythm, S1 normal heart sound, S2 normal heart sound and no murmurs RHYTHM: regular rhythm HEART SOUNDS: S1 normal and S2 normal GI: COMMON NORMALS: normal to inspection, nondistended, normoactive bowel sounds, soft to palpation and non-tender PALPATION: Yes soft Extremity: COMMON NORMALS: no joint enlargement and no pedal edema NARRATIVE EXTREMITY EXAM: IABP removed this morning. Right groin appears clean, without bruising, swelling or erythema. Left leg wrapped in compression dressing. No bleeding or strikethrough. Skin: COMMON NORMALS: no rashes or lesions noted GENERAL SKIN EXAM: no rashes or lesions noted Urinary Catheter Management^: Mayorga Latex: Cath Placed During This Visit: no Data Micro: Micro: Microbiology 11/20/19 09:01 Blood Culture - Pr eliminary Blood SPECIMEN [facility] 11/20/19 08:58 Blood Culture - Pr eliminary Blood SPECIMEN [facility] A&P Assessment and plan (1) NSTEMI (non-ST elevated myocardial infarction): Status post CABG for left main disease. IABP removed this morning. Yesterday spiked a fever 101.1 at 8:39 PM, with persistent low-grade fever since then. 100.4 this morning. No leukocytosis. Chest x-ray without infiltrate suggestive of pneumonia. With persistent/recurrent symptoms. On nitroglycerin drip. Requested blood culture, UA, rapid flu. She received 3 units PRBC transfusion yesterday. Suspect that this may be related to the transfusion as fever began shortly afterward. Will request LDH, haptoglobin. Peripheral smear. Platelets are down to 82,000. She received heparin yesterday afternoon. Is no longer on heparin products. Would avoid for now in case is having HIT. Continue SCD for DVT prophylaxis. Status: Acute Code(s): I21.4 - Non-ST elevation (NSTEMI) myocardial infarction (2) Accelerated essential hypertension: Blood pressure at goal. Status: Chronic Code(s): I10 - Essential (primary) hypertension (3) Hypothyroid: Status: Chronic Qualifiers: Hypothyroidism type: acquired Qualified Code(s): E03.9 - Hypothyroidism, unspecified Code(s): E03.9 - Hypothyroidism, unspecified Additional A&P Information Shortness of breath: Improved. She is not normally on oxygen at home. Saturation 99% on 1 L nasal cannula. Attestations Medical Necessity Statement*: Continue admission for cyst management after CABG. Coding Level of Care Code Acute Multifocal Button Inspector for g Fwd Diagnoses NSTEMI (non-ST elevated myocardial infarction) I21.4 Accelerated essential hypertension I10 Hypothyroid E03.9 Hypothyroidism type: acquired
[2019-11-20 09:50] LABS: Influenza A by IFA Negative (Negative); Influenza B by IFA Negative (Negative)
[2019-11-20 09:51] LABS: Add Urine Microscopic? YES; Bilirubin Urine Neg (NEGATIVE); Blood Urine 2+ (Negative); Glucose Urine UA Norm (Normal); Ketones Urine 1+ (Negative); Leukocyte Esterase Urine Negative (Negative); Nitrate Urine Negative (Negative); Protein Urine Neg (Negative); Urine Appearance Clear (CLEAR); Urine Color Yellow (Yellow); Urobilinogen Urine Norm (Negative)
[2019-11-20] MEDS: aspirin 325 mg Tablet PO (09:51)
[2019-11-20] MEDS: metoprolol tartrate 25 mg Tablet 12.5 MG PO ×2 (09:51→21:13)
[2019-11-20] MEDS: chlorhexidine gluconate 0.12% Btl 473 mL 15 ML MUCOUS MEM ×2 (09:52→17:08)
[2019-11-20] MEDS: pantoprazole 40 mg SDV IVP (09:52)
[2019-11-20 09:53] LABS: Add Urine Culture? No; Bacteria Urine TRACE; Mucus Urine 1+; RBC Urine 0-4 /hpf (0-2); Squamous Epithelial Cell Urine 0-4 (0-5); WBC Urine 0-4 /hpf (0-5)
[2019-11-20] MEDS: mupirocin oint 22 gm 1 APPLIC NASAL ×2 (09:55→17:07)
--- NOTE | 2019-11-20 10:10 | P.PN_ITS ---
Subjective Subjective: Interval history: Postop day #1 status post CABG x2. Uneventful night. Low chest tube output. Did have temperature last night. Though is trending down. I have discussed with Dr. Talavera. Hemodynamically stable. Intra-aortic balloon pump was removed this morning. Ventilator being slowly weaned. Will continue weaning once patient can sit up Vitals/I&O/Wt Last Vital Signs Temp 100.4 F H 11/20/19 08:00 Pulse 99 11/20/19 10:00 Resp 14 11/20/19 09:30 BP 141/76 11/20/19 10:00 Pulse Ox 95 11/20/19 10:00 11/19/19 11/20/19 11/20/19 22:59 06:59 14:59 Intake Total 6275 / 8365 225.000 / 8590.000 19.117 / 19.117 Output Total 1340 / 2590 368 / 2958 185 / 185 Balance 4935 / 5775 -143.000 / 5632.000 -165.883 / -165.883 Physical Exam Resp: COMMON NORMALS: clear to auscultation bilaterally AUSCULTATION: clear to auscultation bilaterally Cardio: COMMON NORMALS: regular rate, regular rhythm and S1 normal heart sound RATE: regular rate and tachycardic (Mild in low 90s) RHYTHM: regular rhythm HEART SOUNDS: S1 normal Urinary Catheter Management^: Mayorga Latex: Cath Placed During This Visit: no Data Micro: Micro: Microbiology 11/20/19 09:01 Blood Culture - Pr eliminary Blood SPECIMEN [facility] 11/20/19 08:58 Blood Culture - Pr eliminary Blood SPECIMEN [facility] A&P Assessment and plan (1) Status post aorto-coronary artery bypass graft: Postop day #1 status post CABG x2 Progressing steadily. Will continue ventilator weaning once patient can set up. CBC, BMP, chest x-ray in a.m. Aspirin daily Metoprolol 12.5 mg twice daily Lipitor 20 mg nightly Status: Acute Code(s): Z95.1 - Presence of aortocoronary bypass graft Attestations Medical Necessity Statement*: Status post CABG postop day #1 Time Spent in Patient Care: Greater than 35 minutes Coding Level of Care Code Acute Executive Vice President And Chief Financial Officer for g Fwd Diagnoses Status post aorto-coronary artery bypass graft Z95.1
[2019-11-20 10:24] LABS: Lactate Dehydrogenase 483 U/L (135-214)
[2019-11-20 10:37] LABS: LAB Peripheral Smear Sent for Review
[2019-11-20] MEDS: acetaminophen 325 mg Tablet 650 MG PO (15:31)
[2019-11-20] MEDS: FUROsemide 10 mg/mL SDV 2mL 20 MG IVP ×2 (15:57→22:39)
[2019-11-20 17:03] LABS: Alanine Aminotransferase 68 U/L (0-33); Albumin Level 3.1 g/dL (3.5-5.2); Alkaline Phosphatase 58 IU/L (35-105); Anion Gap 16.4 (5-19); Aspartate Amino Transferase 94 U/L (0-32); Blood Urea Nitrogen 22 mg/dL (8-23); Calcium 8.1 mg/Dl (8.8-10.2); Carbon Dioxide 20 mmol/L (22-29); Chloride 115 mmol/L (98-107); Glucose 100 mg/dL (74-106); Potassium 4.4 mmol/L (3.5-5.1); Sodium 147 mmol/L (136-145); Total Bilirubin 0.6 mg/dL (0.15-1.2); Total Protein 5.1 g/dL (6.6-8.7)
[2019-11-20 17:20] LABS: Basophils % 0.1 %; Hemoglobin 9.3 g/dL (11.5-15.3); Lymphocytes # 0.5 10^3/uL (0.8-4.8); Lymphocytes % 6.3 %; Mean Corpuscular Hemoglobin 30.5 pg (28.0-34.0); Mean Corpuscular Volume 98.4 fL (81-99); Mean Platelet Volume 13.1 fL (7.4-10.4); Monocytes # 0.6 10^3/uL (0.2-0.9); Monocytes % 8.2 %; Neutrophils # 6.6 10^3/uL (1.8-7.7); Nucleated Red Blood Cells % 0 %; Platelet Count 100 10^3/cmm (130-400); Red Blood Count 3.05 10^6/uL (4.1-5.3); Red Cell Distribution Width 15.8 % (12.1-15.1); White Blood Count 7.8 10^3/uL (4.0-10.0)
[2019-11-20 17:49] LABS: INR 1.19 (0.8-1.2)
[2019-11-20 17:50] LABS: Fibrinogen 485 mg/dL (184-529); Partial Thromboplastin Time 30.2 SECONDS (23.9-36.7)
[2019-11-20 18:03] LABS: ABG PCO2 41.7 mmHg (35-45); ABG PH Result 7.38 (7.35-7.45)
[2019-11-20 18:04] LABS: Base Excess ABG -0.4 mmol/L (-2.0-2.0); HCO3 ABG 24.7 mmol/L (22-26); Oxygen Saturation ABG 100; Potassium Level - ABG 3.7 mmol/L (3.5-5.0)
[2019-11-20 18:05] LABS: Arterial Blood Gas Hematocrit 28.1 % (37-47); Blood Gas Sample Type ARTERIAL; Carboxyhemoglobin 0.6 %THgb (0.4-20.1); HGB O2 Sat 98.5 % (95-100); Ionized Calcium Level - ABG 1.1 mmol/L (1.1-1.4); Total Hemoglobin 9.2 g/dL (12-16)
[2019-11-20 18:07] LABS: ABG PCO2 41.5 mmHg (35-45); ABG PH Result 7.32 (7.35-7.45); Base Excess ABG -4.3 mmol/L (-2.0-2.0); HCO3 ABG 21.5 mmol/L (22-26); Oxygen Saturation ABG 97.2; PO2 ABG 87.3 mmHg (80.0-100.0); Potassium Level - ABG 3.8 mmol/L (3.5-5.0)
[2019-11-20 18:08] LABS: Arterial Blood Gas Hematocrit 25.8 % (37-47); Blood Gas Sample Type ARTERIAL; Carboxyhemoglobin 0.9 %THgb (0.4-20.1); HGB O2 Sat 94.9 % (95-100); Ionized Calcium Level - ABG 1.1 mmol/L (1.1-1.4); Methemoglobin 1.5 % (0.4-1.5); Total Hemoglobin 8.4 g/dL (12-16)
[2019-11-20 18:11] LABS: Methemoglobin 0.9 % (0.4-1.5)
[2019-11-20 18:12] LABS: ABG PCO2 39.3 mmHg (35-45); ABG PH Result 7.34 (7.35-7.45)
[2019-11-20 18:13] LABS: Arterial Blood Gas Hematocrit 23.3 % (37-47); Base Excess ABG -4.5 mmol/L (-2.0-2.0); Blood Gas Sample Type ARTERIAL; HCO3 ABG 20.9 mmol/L (22-26); Potassium Level - ABG 5.5 mmol/L (3.5-5.0)
[2019-11-20 18:14] LABS: ABG PH Result 7.41 (7.35-7.45); HGB O2 Sat 98.7 % (95-100); Ionized Calcium Level - ABG 0.9 mmol/L (1.1-1.4); Methemoglobin 0.7 % (0.4-1.5); Total Hemoglobin 7.6 g/dL (12-16)
[2019-11-20 18:15] LABS: ABG PCO2 37.2 mmHg (35-45); Arterial Blood Gas Hematocrit 24.4 % (37-47); Base Excess ABG -0.9 mmol/L (-2.0-2.0); Blood Gas Sample Type ARTERIAL; HCO3 ABG 23.6 mmol/L (22-26); Potassium Level - ABG 4.6 mmol/L (3.5-5.0)
[2019-11-20 18:16] LABS: ABG PCO2 36.6 mmHg (35-45); Base Excess ABG -2.2 mmol/L (-2.0-2.0); Carboxyhemoglobin 0.8 %THgb (0.4-20.1); HCO3 ABG 22.4 mmol/L (22-26); HGB O2 Sat 98.4 % (95-100)
[2019-11-20 18:17] LABS: Arterial Blood Gas Hematocrit 25.2 % (37-47); Blood Gas Sample Type ARTERIAL; Carboxyhemoglobin 0.9 %THgb (0.4-20.1); HGB O2 Sat 98.3 % (95-100); Potassium Level - ABG 4.7 mmol/L (3.5-5.0); Total Hemoglobin 8.2 g/dL (12-16)
[2019-11-20 18:18] LABS: ABG PH Result 7.45 (7.35-7.45); Base Excess ABG -0.2 mmol/L (-2.0-2.0); HCO3 ABG 23.6 mmol/L (22-26)
[2019-11-20 18:19] LABS: Arterial Blood Gas Hematocrit 23.6 % (37-47); Blood Gas Sample Type ARTERIAL; Carboxyhemoglobin 1.1 %THgb (0.4-20.1); HGB O2 Sat 98.5 % (95-100); Ionized Calcium Level - ABG 1.1 mmol/L (1.1-1.4); Methemoglobin 0.8 % (0.4-1.5); Potassium Level - ABG 4.9 mmol/L (3.5-5.0); Total Hemoglobin 7.7 g/dL (12-16)
[2019-11-20 18:20] LABS: ABG PCO2 44.9 mmHg (35-45); ABG PH Result 7.36 (7.35-7.45); Base Excess ABG -0.2 mmol/L (-2.0-2.0); HCO3 ABG 25.3 mmol/L (22-26)
[2019-11-20 18:21] LABS: Arterial Blood Gas Hematocrit 21.5 % (37-47); Blood Gas Sample Type ARTERIAL; HGB O2 Sat 98.1 % (95-100); Ionized Calcium Level - ABG 1.2 mmol/L (1.1-1.4); Methemoglobin 0.9 % (0.4-1.5)
[2019-11-20 18:23] LABS: ABG PCO2 42.7 mmHg (35-45); ABG PH Result 7.37 (7.35-7.45)
[2019-11-20 18:24] LABS: Arterial Blood Gas Hematocrit 34.5 % (37-47); Base Excess ABG -1.1 mmol/L (-2.0-2.0); Blood Gas Sample Type ARTERIAL; HCO3 ABG 24.4 mmol/L (22-26); Ionized Calcium Level - ABG 1.1 mmol/L (1.1-1.4); Potassium Level - ABG 4.3 mmol/L (3.5-5.0)
[2019-11-20 18:25] LABS: Carboxyhemoglobin 0.9 %THgb (0.4-20.1); HGB O2 Sat 98.4 % (95-100); Methemoglobin 0.8 % (0.4-1.5); Total Hemoglobin 11.3 g/dL (12-16)
--- NOTE | 2019-11-20 18:54 | PM.PN ---
Subjective Subjective: Interval history: Patient underwent open heart surgery yesterday-she had a RIVERA to the LAD and a venous graft to the ramus intermedius artery. Currently she is intubated. Her vital signs are remaining stable. She is off any vasopressors. She is on IV fluids and antibiotics. Her CVP was around 7 mmHg. The PA pressure was 25/14. Systemic blood pressure is 118/72. She had a T-max of 101. No significant arrhythmias on the monitor. She had occasional PVCs. The intra-aortic balloon pump was discontinued early this morning. Medications: Reviewed: Yes Vitals/I&O/Wt Last Vital Signs Temp 100.4 F H 11/20/19 08:00 Pulse 96 11/20/19 18:15 Resp 14 11/20/19 18:00 BP 122/65 11/20/19 18:15 Pulse Ox 97 11/20/19 18:15 11/20/19 11/20/19 11/20/19 06:59 14:59 22:59 Intake Total 321.667 / 8686.667 1099.117 / 1099.117 250 / 1349.117 Output Total 368 / 2958 412 / 412 223 / 635 Balance -46.333 / 5728.667 687.117 / 687.117 27 / 714.117 Physical Exam Const: GENERAL APPEARANCE: well developed and well hydrated; not in distress (She is intubated and sedated.) HENMT: MOUTH: no other (ulcers or bleeding) TEETH & GINGIVA: no other (bleeding observed and inflammation present) Eye: COMMON NORMALS: conjunctivae normal CONJUNCTIVA: Yes conjunctivae normal SCLERA: sclerae normal DIRECT OPHTHALMOSCOPY: Yes other (The fundus is not visualized) Neck/C-Spine: COMMON NORMALS: thyroid normal THYROID: thyroid normal CAROTIDS: Yes normal carotid upstroke (and runoff) Chest: COMMONS NORMALS: inspection of chest normal Resp: COMMON NORMALS: clear to auscultation bilaterally EFFORT & INSPECTION: Yes symmetric chest movement and No uses accessory muscles AUSCULTATION: clear to auscultation bilaterally, no crackles and no wheezes Cardio: COMMON NORMALS: regular rate, regular rhythm, S1 normal heart sound, S2 normal heart sound, no gallops, no clicks, no murmurs and no rub JUGULAR VENOUS DISTENTION: JVD present PALPATION: no heave, no palpable S3 and no thrill RATE: regular rate RHYTHM: regular rhythm HEART SOUNDS: S1 normal, S2 normal, no click, no murmurs and no rubs BRUITS: no abdominal aortic bruits PERIPHERAL PULSES: femoral pulses present positive bilateral (Normal), posterior tibial pulses present (Weak) positive bilateral (Normal), dorsalis pedis pulses present (Weak) positive bilateral (Normal) and other (49 the femoral artery puncture site appears to have no hematoma or bleeding. Patient still has the arterial sheath) GI: AUSCULTATION: Yes normoactive bowel sounds and No abdominal bruit PALPATION: No tender, No hepatomegaly, No splenomegaly and No mass Back/Pelvis: GENERAL BACK: No swelling and No other (joint deformities) THORACIC SPINE/UPPER BACK: No kyphosis present LUMBAR SPINE/LOWER BACK: No lumbar scoliosis present Extremity: COMMON NORMALS: negative for no clubbing, cyanosis or edema and negative for no pedal edema GENERAL: No cyanosis Neuro: COMMON NORMALS: negative for no focal motor deficits MOTOR EXAM: No tremor Psych: MOOD & AFFECT: Yes other (Normal mood and affect) Skin: COMMON NORMALS: skin turgor normal; negative for no petechiae GENERAL SKIN EXAM: turgor normal, skin not dry and no erythema RASHES: rash noted NAILS: normal, no clubbing, not discolored and no other (cyanosis) Urinary Catheter Management^: Mayorga Latex: Cath Placed During This Visit: no Data Micro: Micro: Microbiology 11/20/19 10:08 Blood Culture - Pr eliminary Blood [facility] 11/20/19 09:01 Blood Culture - Pr eliminary Blood SPECIM[facility] Imaging^: CXR: My impression: Borderline got is elevated. The chest tube, mediastinal tube and the pulmonary catheter all are in place. No significant pleural effusion EKG^: EKG 1: My Interpretation: The EKG showed sinus tachycardia with some nonspecific T wave changes. No acute ST elevations. Occasional PVCs. A&P Assessment and plan (1) Status post aorto-coronary artery bypass graft: Continues on the current management. Patient is in the process of being extubated. Hemodynamically she seems to be stable. We will gradually start on the p.o. medications, once she is extubated Status: Acute Code(s): Z95.1 - Presence of aortocoronary bypass graft (2) Left main coronary artery disease: Status post two-vessel bypass surgery as mentioned above. EKG looks good. Status: Acute Code(s): I25.10 - Atherosclerotic heart disease of [place] coronary artery without angina pectoris (3) Accelerated essential hypertension: May continue on the current medications. Status: Chronic Code(s): I10 - Essential (primary) hypertension (4) Chronic kidney disease: Her creatinine slightly went up. The urine output is satisfactory. Will Continue close monitoring. Status: Acute Qualifiers: Chronic kidney disease stage: stage 2 (mild) Qualified Code(s): N18.2 - Chronic kidney disease, stage 2 (mild) Code(s): N18.9 - Chronic kidney disease, unspecified Additional A&P Information Low-grade fever, etiology unclear. She had blood and fluid cultures drawn Other problems are dyslipidemia Elevated liver enzymes, etiology? The levels appear to be coming down Attestations Medical Necessity Statement*: Patient requires continued hospital stay for close monitoring and further management Coding Level of Care Code Acute Auto Suspension And Steering Mechanic for [facility] Fausto Diagnoses Status post aorto-coronary artery bypass graft Z95.1 Left main coronary artery disease I25.10 Accelerated essential hypertension I10 Chronic kidney disease N18.2 Chronic kidney disease stage: stage 2 (mild)
[2019-11-20 19:19] LABS: Slide Review Slide Review Perform
--- NOTE | 2019-11-20 20:24 | PC.NURSE ---
2000-Removed Cordis and [place] from patient. Held pressure to site for 10 minutes. Cleaned with Chloraprep applied gauze and bio-occulsive. Will continue to monitor. Cordis and [place] removed intact, no hematoma, oozing and patient tolerated well.
[2019-11-20] MEDS: atorvastatin 40 mg Tablet 20 MG PO (21:09)
[2019-11-20 21:48] LABS: C Reactive Protein 278.2 mg/L (0.0-4.9)
[2019-11-20 21:54] LABS: Procalcitonin 0.04 ng/mL (0-0.8)
[2019-11-20 22:31] LABS: Erythrocyte Sedimentation Rate 42 mm/hr (0-15)
[2019-11-21] VITALS (89 sets, daily range): BP systolic 72–160; BP diastolic 40–85; PULSE 64–169; RESP 12–16; TEMP 37.2–37.7; O2SAT 86–100
[2019-11-21] MEDS: metoprolol tartrate 1 mg/1 mL SDV 5 mL 5 MG IV ×2 (01:32→06:39)
--- NOTE | 2019-11-21 01:48 | PC.NURSE ---
Patient heart rate went from 90's to pause and increased to 160's. Blood pressure reading 180's systolic. Metoprolol 5mg IV given, Nitroprusside started and Nitro IV increased to 200mcg. Strip printed
--- NOTE | 2019-11-21 02:01 | ECG_ITS ---
Measurements Intervals [place] Rate: 89 P: 59 VT: 134 QRS: 29 QRSD: 116 T: 54 QT: 384 QTc: 467 SINUS RHYTHM WITH OCCASIONAL SUPRAVENTRICULAR PREMATURE COMPLEXES LOW QRS VOLTAGE [QRS DEFLECTION < 0.5/1.0 mV IN LIMB/CHEST LEADS] MODERATE INTRAVENTRICULAR CONDUCTION DELAY [110+ ms QRS DURATION] Compared to ECG 11/20/2019 05:38:43 Intraventricular conduction delay now present Ventricular premature complex(es) no longer present Electronically Signed On 11-21-2019 10:50:21 HOUSEHOLD ASSISTANT by Radha Goldstein M.D. [email or web address]
[2019-11-21] MEDS: fentaNYL 50 mcg/mL INJ 2mL IVP (04:12)
[2019-11-21 05:02] LABS: ABG PCO2 35.1 mmHg (35-45); ABG PH Result 7.33 (7.35-7.45); Arterial Blood Gas Hematocrit 27.6 % (37-47); Base Excess ABG -7.1 mmol/L (-2.0-2.0); Blood Gas Sample Site ARTLINE; Blood Gas Sample Type Arterial; Blood Gas Tidal Volume 0.45; HCO3 ABG 18.3 mmol/L (22-26); PO2 ABG 78.7 mmHg (80.0-100.0)
--- NOTE | 2019-11-21 06:00 | XR_ITS ---
WS: [id number] CHEST XRAY TECHNIQUE: Portable chest. CLINICAL INFORMATION: Postop day #2 status post CABG COMPARISON: 11 20,020 FINDINGS: Tubes/Lines: Endotracheal tube with tip 3.0 cm above the jorge. Enteric tube with tip in stomach. Ri ght IJ central venous catheter. Sternotomy. CABG. Left chest tube. No visualized pneumothorax. Heart: Cardiomegaly. Lungs: Elevation left hemidiaphragm. Left chest tube. No pneumothorax. No new infiltrates. Bones: Thoracic scoliosis convex right. XR/XR chest 1V portable [id number] IMPRESSION: 1. Endotracheal tube with tip 2.9. Above the jorge. 2. Enteric tube with tip below diaphragm. Right IJ central venous catheter in place. 3. Left chest tube in place. No visualized pneumothorax. 4. Postoperative sternotomy and CABG.
[2019-11-21 06:29] LABS: Basophils % 0.4 %; Eosinophils # 0.1 10^3/uL (0.0-0.8); Eosinophils % 0.7 %; Hematocrit 26.7 % (37.0-47.0); Hemoglobin 8.2 g/dL (11.5-15.3); Lymphocytes # 0.5 10^3/uL (0.8-4.8); Mean Corpuscular HGB Conc 30.7 g/dL (30.0-36.0); Mean Corpuscular Hemoglobin 29.6 pg (28.0-34.0); Mean Corpuscular Volume 96.4 fL (81-99); Mean Platelet Volume 13.4 fL (7.4-10.4); Monocytes # 0.7 10^3/uL (0.2-0.9); Monocytes % 6.5 %; Neutrophils # 9.3 10^3/uL (1.8-7.7); Neutrophils % 86.6 %; Nucleated Red Blood Cells % 0.2 %; Platelet Count 113 10^3/cmm (130-400); Red Blood Count 2.77 10^6/uL (4.1-5.3); Red Cell Distribution Width 15.6 % (12.1-15.1); White Blood Count 10.8 10^3/uL (4.0-10.0)
[2019-11-21 06:50] LABS: Alanine Aminotransferase 54 U/L (0-33); Albumin Level 2.9 g/dL (3.5-5.2); Alkaline Phosphatase 55 IU/L (35-105); Anion Gap 20.1 (5-19); Aspartate Amino Transferase 57 U/L (0-32); Blood Urea Nitrogen 26 mg/dL (8-23); Calcium 8.4 mg/Dl (8.8-10.2); Carbon Dioxide 17 mmol/L (22-29); Chloride 114 mmol/L (98-107); Globulin 2.2 g/dL (1.3-4.6); Glucose 148 mg/dL (74-106); Potassium 4.1 mmol/L (3.5-5.1); Sodium 147 mmol/L (136-145); Total Bilirubin 0.6 mg/dL (0.15-1.2); Total Protein 5.1 g/dL (6.6-8.7)
--- NOTE | 2019-11-21 06:52 | PC.NURSE ---
0620 Patient heart rate 160-170 afib RVR, phoned Dr Stanford, Referred to Cardiology. Contacted Dr Goldstein who was updated on the case and current heart rate. Given verbal order for Metoprolol 5mg IV now and Q4 PRN for heart rate greater than 120. Bolus of Amiodarone given as well. If heart rate not contoled within 30 to 60 minutes contact Cardiology for possible Dig dose.
--- NOTE | 2019-11-21 07:25 | PC.NURSE ---
Phoned Dr Goldstein, Heart rate continues to run 130 to 150. Given verbal order for Dig 500mcg IV one time. Continue Amio 1mcg past 6 hour period.
[2019-11-21] MEDS: digoxin 250 mcg/ml INJ 2 mL 500 MCG IVP (07:30)
[2019-11-21] MEDS: propofol 1,000 MG/100 ML INJ 12.9 MG IV ×2 (07:31→17:24)
[2019-11-21 08:33] LABS: Ketone (Acetest) Serum Negative (Negative)
[2019-11-21] MEDS: metoprolol tartrate 25 mg Tablet 12.5 MG PO ×2 (08:34→17:02)
[2019-11-21] MEDS: aspirin 325 mg Tablet PO (08:34)
[2019-11-21] MEDS: levothyroxine 88 mcg Tablet PO (08:34)
[2019-11-21 08:35] LABS: Urine Creatinine 168 mg/dL (28-217)
[2019-11-21] MEDS: chlorhexidine gluconate 0.12% Btl 473 mL 15 ML MUCOUS MEM ×2 (08:35→17:03)
[2019-11-21] MEDS: neomycin-poly-bacitracin oint 0.9 gm Pkt 1 APPLIC TOPICAL ×2 (08:37→17:02)
[2019-11-21] MEDS: mupirocin oint 22 gm 1 APPLIC NASAL ×2 (08:37→17:04)
[2019-11-21] MEDS: liothyronine 5 mcg Tablet PO (08:37)
[2019-11-21 08:59] LABS: Lactic Acid 1.2 mmol/L (0.5-2.2)
--- NOTE | 2019-11-21 09:27 | PC.NURSE ---
pt converted back to sinus rhythm at [address]ala[address] Goldstein called to check on pt around 0920 and was updated that pt had converted.
[2019-11-21 09:35] LABS: Urea Nitrogen,Urine Random 293 mg/dL
[2019-11-21 09:52] LABS: Magnesium 2.8 mg/dL (1.7-2.3)
[2019-11-21 10:15] LABS: Oxygen Device VENT
[2019-11-21 10:25] LABS: Oxygen Device VENT
--- NOTE | 2019-11-21 10:29 | PC.OT ---
OT EVALUATION HELD TODAY PATIENT IS INTUBATED.
[2019-11-21] MEDS: oxyCODONE-APAP 5-325 mg Tablet PO ×2 (10:48→20:22)
--- NOTE | 2019-11-21 10:57 | PM.PN ---
Subjective Subjective: Interval history: Intubated, sedated. Not in distress. Vitals/I&O/Wt Last Vital Signs Temp 99.3 F 11/21/19 10:38 Pulse 74 11/21/19 10:38 Resp 14 11/21/19 10:48 BP 142/55 11/21/19 10:38 Pulse Ox 97 11/21/19 10:48 11/20/19 11/21/19 11/21/19 22:59 06:59 14:59 Intake Total 2853 / 3952.117 681.278 / 4633.395 405.935 / 405.935 Output Total 353 / 765 775 / 1540 120 / 120 Balance 2500 / 3187.117 -93.722 / 3093.395 285.935 / 285.935 Physical Exam Const: COMMON NORMALS: no apparent distress OTHER: Intubated, sedated. HENMT: COMMON NORMALS: oropharynx normal Neck/C-Spine: COMMON NORMALS: no JVD OTHER: Right IJ CVC. Chest: OTHER: Mediastinal drains. Resp: COMMON NORMALS: normal respiratory effort OTHER: Few rhonchi on the left. No wheezing or crackles. Cardio: COMMON NORMALS: no JVD, regular rhythm, S1 normal heart sound, S2 normal heart sound and no murmurs RHYTHM: regular rhythm HEART SOUNDS: S1 normal and S2 normal GI: COMMON NORMALS: normal to inspection, nondistended, normoactive bowel sounds, soft to palpation and non-tender PALPATION: Yes soft Extremity: COMMON NORMALS: no joint enlargement and no pedal edema NARRATIVE EXTREMITY EXAM: IABP removed this morning. Right groin appears clean, without bruising, swelling or erythema. Left leg wrapped in compression dressing. No bleeding or strikethrough. Neuro: COMMON NORMALS: moves all extremities Skin: COMMON NORMALS: no rashes or lesions noted GENERAL SKIN EXAM: no rashes or lesions noted Urinary Catheter Management^: Mayorga Latex: Cath Placed During This Visit: y Data : 11/21/19 04:50 11/21/19 04:50 Micro: Microbiology 11/20/19 10:08 Blood Culture - Preliminary Blood NEGATIVE TO DATE 11/20/19 11:15 Body Fluid Culture - Preliminary Pericardial Fluid 11/20/19 11:15 Body Fluid Culture - Preliminary Pleural Fluid 11/20/19 09:01 Blood Culture - Preliminary Blood NEGATIVE TO DATE A&P Assessment and plan (1) NSTEMI (non-ST elevated myocardial infarction): Status post CABG for left main disease. Fever resolved. Hemoglobin down to 8.2. We will give 1 unit. BC transfusion. LDH not at high, haptoglobin low, however, unclear what may be the cause of hemolysis, as there could be multiple reasons, on the off chance medication was contributing cefuroxime was switched over to vancomycin. Chest x-ray reported without infiltrate suggestive of pneumonia. Does appear to have faint interstitial markings compared to prior image. Received Lasix. She has been weaned off dobutamine, and blood pressures are not low. At the same time does appear to have prerenal acute kidney injury by FEUrea. Platelet level recovering. Continue SCD for DVT prophylaxis. Status: Acute Code(s): I21.4 - Non-ST elevation (NSTEMI) myocardial infarction (2) Metabolic acidosis: Anion gap and non-gap metabolic acidosis. With hyperchloremic acidosis. Requested for lactic acid. Serum ketones. Both normal. Appears may be related to acute kidney injury. Status: Acute Code(s): E87.2 - Acidosis (3) Acute kidney injury superimposed on CKD: Creatinine up to 1.6. Prerenal according to FEurea. On review of blood pressures occasional hypotension, down as low as 72/43 overnight. Possibly related to A. fib with RVR. She has been weaned off dobutamine. Received metoprolol, digoxin, started on amiodarone drip. Heart rates better this morning, blood pressure appears to have stabilized. Status: Acute Code(s): N17.9 - Acute kidney failure, unspecified; N18.9 - Chronic kidney disease, unspecified (4) Atrial fibrillation with RVR: Received metoprolol IV, 500 mcg digoxin, started on amiodarone drip. Continue drip at this time. Converted to sinus rhythm this morning. Status: Acute Code(s): I48.91 - Unspecified atrial fibrillation (5) Accelerated essential hypertension: Blood pressure at goal. Status: Chronic Code(s): I10 - Essential (primary) hypertension (6) Hypothyroid: Status: Chronic Qualifiers: Hypothyroidism type: acquired Qualified Code(s): E03.9 - Hypothyroidism, unspecified Code(s): E03.9 - Hypothyroidism, unspecified Additional A&P Information Shortness of breath: Improved. She is not normally on oxygen at home. Saturation 99% on 1 L nasal cannula. Attestations Medical Necessity Statement*: Continue admission for assessment and management for CABG. Coding Level of Care Code Acute Medical Care Administrator for Chg Fwd Diagnoses NSTEMI (non-ST elevated myocardial infarction) I21.4 Metabolic acidosis E87.2 Acute kidney injury superimposed on CKD N17.9; N18.9 Atrial fibrillation with RVR I48.91 Accelerated essential hypertension I10 Hypothyroid E03.9 Hypothyroidism type: acquired
[2019-11-21] MEDS: FUROsemide 10 mg/mL SDV 4mL 40 MG IVP (11:48)
--- NOTE | 2019-11-21 12:10 | P.PN_ITS ---
Subjective Subjective: Interval history: I am covering for Dr. Gill today. Eliana is 69 years old and was admitted on the 12th some 5 days ago with chest discomfort and an elevated troponin. She suffered a small non-ST segment elevation [place]. She underwent angiography and was found to have left main disease and three- vessel disease. She underwent coronary bypass surgery which included a left internal mammary artery to the LAD and a vein graft to the obtuse marginal branch of the circumflex. I placed in a intra-aortic balloon pump prior to the surgery. Dr. Stanford has removed this. She is still intubated. She is on propofol and amiodarone. Last evening she went into atrial fibrillation. She received Lasix, metoprolol and digoxin 500 mcg IV. Several hours later she converted to sinus rhythm where she remains. She is still intubated and sedated. Cyril-Werner catheter is out. Her vital signs have been very stable. She has had a mild elevation in her temperature 99.1 degrees. Medications: Reviewed: Yes Vitals/I&O/Wt Last Vital Signs Temp 99.1 F 11/21/19 11:45 Pulse 65 11/21/19 11:45 Resp 14 11/21/19 11:45 BP 120/51 11/21/19 11:45 Pulse Ox 97 11/21/19 11:45 11/20/19 11/21/19 11/21/19 22:59 06:59 14:59 Intake Total 2853 / 3952.117 681.278 / 4633.395 948.738 / 948.738 Output Total 353 / 765 775 / 1540 165 / 165 Balance 2500 / 3187.117 -93.722 / 3093.395 783.738 / 783.738 Physical Exam Narrative: EXAM NARRATIVE: GENERAL: Sedated and still on a ventilator HEENT: Exam within normal limits. NECK: Supple without jugular vein distention. The carotid upstroke is normal without bruits. BACK: Exam normal. LUNGS: Clear. HEART: Regular rate and rhythm. ABDOMEN: Benign without organomegaly or tenderness. EXTREMITIES: No edema. NEUROLOGIC: Exam normal. SKIN: Unremarkable. Urinary Catheter Management^: Mayorga Latex: Cath Placed During This Visit: no Data : 11/21/19 04:50 11/21/19 04:50 Micro: Microbiology 11/20/19 10:08 Blood Culture - Preliminary Blood NEGATIVE TO DATE 11/20/19 11:15 Body Fluid Culture - Preliminary Pericardial Fluid 11/20/19 11:15 Body Fluid Culture - Preliminary Pleural Fluid 11/20/19 09:01 Blood Culture - Preliminary Blood NEGATIVE TO DATE A&P Assessment and plan (1) CAD (coronary artery disease): Status: Acute Qualifiers: Coronary Disease-Associated Artery/Lesion type: [place] artery [place] vs. transplanted heart: [place] heart Associated angina: with unstable angina Qualified Code(s): I25.110 - Atherosclerotic heart disease of [place] coronary artery with unstable angina pectoris Code(s): I25.10 - Atherosclerotic heart disease of [place] coronary artery without angina pectoris (2) Atrial fibrillation with RVR: Status: Acute Code(s): I48.91 - Unspecified atrial fibrillation (3) Acute kidney injury superimposed on CKD: Status: Acute Code(s): N17.9 - Acute kidney failure, unspecified; N18.9 - Chronic kidney disease, unspecified (4) Metabolic acidosis: Status: Acute Code(s): E87.2 - Acidosis (5) Status post aorto-coronary artery bypass graft: Status: Acute Code(s): Z95.1 - Presence of aortocoronary bypass graft (6) Left main coronary artery disease: Status: Acute Code(s): I25.10 - Atherosclerotic heart disease of [place] coronary artery without angina pectoris (7) Hypothyroid: Status: Chronic Qualifiers: Hypothyroidism type: acquired Qualified Code(s): E03.9 - Hypothy roidism, unspecified Code(s): E03.9 - Hypothyroidism, unspecified (8) Accelerated essential hypertension: Status: Chronic Code(s): I10 - Essential (primary) hypertension (9) NSTEMI (non-ST elevated myocardial infarction): Status: Acute Code(s): I21.4 - Non-ST elevation (NSTEMI) myocardial infarction (10) Anemia: Status: Acute Qualifiers: Anemia type: other cause Other causes of anemia: acute posthemorrhagic Qualified Code(s): D62 - Acute posthemorrhagic anemia Code(s): D64.9 - Anemia, unspecified (11) Hypernatremia: Status: Acute Code(s): E87.0 - Hyperosmolality and hypernatremia (12) Glucose intolerance: Status: Acute Code(s): E74.39 - Other disorders of intestinal carbohydrate absorption Additional A&P Information She seems to be getting along pretty well. Routine postoperative care. Wean to extubate as tolerated. Continue the intravenous amiodarone until she is extubated then change to p.o. She is also on a p.o. beta-radha. No need for further digoxin. Attestations Medical Necessity Statement*: Not applicable Time Spent in Patient Care: 16 - 35 minutes Coding Level of Care Code Acute Boiler Tender for Chg Fwd History Detailed Exam Detailed Medical Decision Making Moderate Complexity Diagnoses CAD (coronary artery disease) I25.110 Coronary Disease-Associated Artery/Lesion type: [place] artery [place] vs. transplanted heart: [place] heart Associated angina: with unstable angina Atrial fibrillation with RVR I48.91 Acute kidney injury superimposed on CKD N17.9; N18.9 Metabolic acidosis E87.2 Status post aorto-coronary artery bypass graft Z95.1 Left main coronary artery disease I25.10 Hypothyroid E03.9 Hypothyroidism type: acquired Accelerated essential hypertension I10 NSTEMI (non-ST elevated myocardial infarction) I21.4 Anemia D62 Anemia type: other cause Other causes of anemia: acute posthemorrhagic Hypernatremia E87.0 Glucose intolerance E74.39
[2019-11-21] MEDS: sodium chloride 0.9% 1,000 ML 35 ML IV (13:02)
--- NOTE | 2019-11-21 13:05 | P.PN_ITS ---
Subjective Subjective: Interval history: Postop day #2 status post CABG x2 Received 1 unit packed RBCs today. Chest tube output low at about 200 cc past 24 hours Overall she is about 7 to 8 L up in total body fluid over the past 2 days and therefore I think the drop in the hemoglobin is most probably dilutional. Surprisingly, her chest x-ray remains quite clear. FiO2 requirements are only 35%. Brief period of atrial fibrillation yesterday has now converted back to sinus about 8 AM this morning and on IV amiodarone currently. Metoprolol has also been increased. I counseled with her family at bedside today. Vitals/I&O/Wt Last Vital Signs Temp 99.1 F 11/21/19 11:45 Pulse 65 11/21/19 12:00 Resp 14 11/21/19 12:00 BP 131/62 11/21/19 12:00 Pulse Ox 98 11/21/19 12:00 11/20/19 11/21/19 11/21/19 22:59 06:59 14:59 Intake Total 2853 / 3952.117 681.278 / 4633.395 1007.045 / 1007.045 Output Total 353 / 765 775 / 1540 165 / 165 Balance 2500 / 3187.117 -93.722 / 3093.395 842.045 / 842.045 Physical Exam Resp: COMMON NORMALS: clear to auscultation bilaterally AUSCULTATION: clear to auscultation bilaterally Cardio: COMMON NORMALS: regular rate, regular rhythm and S1 normal heart sound; negative for no murmurs RATE: regular rate RHYTHM: regular rhythm HEART SOUNDS: S1 normal Extremity: OTHER: Peripheral edema is noted and would be suspected with the total body fluid expansion. Urinary Catheter Management^: Mayorga Latex: Cath Placed During This Visit: no Data : 11/21/19 04:50 11/21/19 04:50 Micro: Microbiology 11/20/19 10:08 Blood Culture - Preliminary Blood NEGATIVE TO DATE 11/20/19 11:15 Body Fluid Culture - Preliminary Pericardial Fluid 11/20/19 11:15 Body Fluid Culture - Preliminary Pleural Fluid 11/20/19 09:01 Blood Culture - Preliminary Blood NEGATIVE TO DATE A&P Assessment and plan (1) Status post aorto-coronary artery bypass graft: Postop day #2 status post CABG Volume expansion with substantial third spaced fluid. I would recommend a fairly aggressive attempt at diuresis over the next 24 to 48 hours. I greatly appreciate the expertise and oversight of Dr. Grullon from our cardiology service and from Dr. Talavera and our hospitalist colleagues as well as Dr. John. Will follow up with chest x-ray and lab in the morning. We will continue to assess carefully for appropriate timing of extubation. Status: Acute Code(s): Z95.1 - Presence of aortocoronary bypass graft Attestations Medical Necessity Statement*: Postop day #2 status post CABG Time Spent in Patient Care: 16 - 35 minutes Coding Level of Care Code Acute Hse Coordinator for Chg Fwd Diagnoses Status post aorto-coronary artery bypass graft Z95.1
--- NOTE | 2019-11-21 13:35 | DCPLANNER ---
*IMM* Informed Family Bela, of Medicare Important Message via voicemail on home phone. Note of this is in the chart. Patient still on the vent.
[2019-11-21] MEDS: FUROsemide 100 MG in sodium chloride 0.9% 40 ML 10 MG IV (14:58)
[2019-11-21 17:06] LABS: Glucose Point of Care 78 mg/dL (70-110)
[2019-11-21 17:06] LABS: Glucose Point of Care 131 mg/dL (70-110)
[2019-11-21 17:06] LABS: Glucose Point of Care 133 mg/dL (70-110)
[2019-11-21 17:06] LABS: Glucose Point of Care 116 mg/dL (70-110)
[2019-11-21 17:06] LABS: Glucose Point of Care 107 mg/dL (70-110)
[2019-11-21 17:06] LABS: Glucose Point of Care 138 mg/dL (70-110)
[2019-11-21 17:06] LABS: Glucose Point of Care 147 mg/dL (70-110)
[2019-11-21 17:06] LABS: Glucose Point of Care 135 mg/dL (70-110)
[2019-11-21 17:06] LABS: Glucose Point of Care 128 mg/dL (70-110)
[2019-11-21 17:06] LABS: Glucose Point of Care 120 mg/dL (70-110)
[2019-11-21 17:07] LABS: Glucose Point of Care 114 mg/dL (70-110)
[2019-11-21 17:07] LABS: Glucose Point of Care 116 mg/dL (70-110)
[2019-11-21 17:07] LABS: Glucose Point of Care 106 mg/dL (70-110)
[2019-11-21 17:07] LABS: Glucose Point of Care 108 mg/dL (70-110)
[2019-11-21 17:07] LABS: Glucose Point of Care 117 mg/dL (70-110)
[2019-11-21 17:07] LABS: Glucose Point of Care 114 mg/dL (70-110)
[2019-11-21 17:07] LABS: Glucose Point of Care 110 mg/dL (70-110)
[2019-11-21 17:07] LABS: Glucose Point of Care 122 mg/dL (70-110)
[2019-11-21 17:07] LABS: Glucose Point of Care 112 mg/dL (70-110)
[2019-11-21 17:07] LABS: Glucose Point of Care 100 mg/dL (70-110)
[2019-11-21 17:07] LABS: Glucose Point of Care 107 mg/dL (70-110)
[2019-11-21 17:07] LABS: Glucose Point of Care 108 mg/dL (70-110)
[2019-11-21 17:07] LABS: Glucose Point of Care 101 mg/dL (70-110)
[2019-11-21 17:07] LABS: Glucose Point of Care 112 mg/dL (70-110)
[2019-11-21 17:08] LABS: Glucose Point of Care 89 mg/dL (70-110)
[2019-11-21 17:08] LABS: Glucose Point of Care 117 mg/dL (70-110)
[2019-11-21 17:08] LABS: Glucose Point of Care 94 mg/dL (70-110)
[2019-11-21 17:08] LABS: Glucose Point of Care 148 mg/dL (70-110)
[2019-11-21 17:08] LABS: Glucose Point of Care 126 mg/dL (70-110)
[2019-11-21 17:08] LABS: Glucose Point of Care 100 mg/dL (70-110)
[2019-11-21 17:08] LABS: Glucose Point of Care 182 mg/dL (70-110)
[2019-11-21 17:08] LABS: Glucose Point of Care 133 mg/dL (70-110)
[2019-11-21 17:08] LABS: Glucose Point of Care 190 mg/dL (70-110)
[2019-11-21 17:08] LABS: Glucose Point of Care 109 mg/dL (70-110)
[2019-11-21 17:08] LABS: Glucose Point of Care 78 mg/dL (70-110)
--- NOTE | 2019-11-21 17:38 | PC.SOCIAL ---
IMM Page 2 of [facility] explained to patient's daughter, Bela over the phone. She verbalizes understanding. Initialed, dated, and timed and placed in chart. Copy provided to patient's room.
[2019-11-21] MEDS: atorvastatin 40 mg Tablet 20 MG PO (20:22)
--- NOTE | 2019-11-21 20:45 | USCV_ITS ---
Eliana Samuels Age: 69 Gender: F : 1950 Exam Date: 11/21/2019 05:53 Ordering Phys: Marquise Talavera MD Technologist: Jamilah Wise Exam Location: [facility] [place] Indication: FEVER. ELEVATED D DIMER HISTORY: Fever. Elevated D Dimer. Recent CABG. PROCEDURES: Examined bilaterally were the greater saphenous, common femoral, femoral, profunda, popliteal, posterior tibial veins, and peroneal trunk.. FINDINGS: All veins examined appear free of thrombus. No filling defects on color Doppler flow analysis. Vein flow and caliber vary with respiration. Increase in venous flow with augmentation. All veins appear compressible. Sylvester's cyst noted in RIGHT popliteal fossa. CONCLUSIONS Negative bilateral deep venous Doppler ulltrasound. Incidental right Sylvester's cyst. Dr. Dede Hatch MD (Electronically Signed) Final Date: 21 November 2019 08:56 S
[2019-11-21] MEDS: albumin 12.5 GM/250 ML VIAL IV (21:04)
[2019-11-21] MEDS: propofol 1,000 MG/100 ML INJ 15.5 MG IV (22:53)
[2019-11-22] VITALS (52 sets, daily range): BP systolic 117–165; BP diastolic 49–79; PULSE 60–88; RESP 12–30; TEMP 36.9–37.6; O2SAT 93–100
[2019-11-22] MEDS: fentaNYL 50 mcg/mL INJ 2mL IVP ×2 (00:54→02:45)
[2019-11-22] MEDS: nitroglycerin drip 50 MG/250 ML PREMIX IV (00:59)
[2019-11-22 01:08] LABS: Glucose Point of Care 156 mg/dL (70-110)
[2019-11-22] MEDS: oxyCODONE-APAP 5-325 mg Tablet PO ×2 (04:00→22:40)
[2019-11-22 05:03] LABS: ABG PCO2 36.9 mmHg (35-45); ABG PH Result 7.38 (7.35-7.45); Arterial Blood Gas Hematocrit 28.5 % (37-47); Base Excess ABG -3.2 mmol/L (-2.0-2.0); Blood Gas Sample Site ARTLINE; Blood Gas Sample Type Arterial; Blood Gas Tidal Volume 0.45; HCO3 ABG 21.6 mmol/L (22-26); Oxygen Device VENT; PO2 ABG 71.1 mmHg (80.0-100.0)
[2019-11-22 05:14] LABS: Basophils % 0.5 %; Eosinophils # 0.1 10^3/uL (0.0-0.8); Eosinophils % 1.4 %; Hematocrit 27.4 % (37.0-47.0); Hemoglobin 8.6 g/dL (11.5-15.3); Lymphocytes # 0.7 10^3/uL (0.8-4.8); Lymphocytes % 8.5 %; Mean Corpuscular HGB Conc 31.4 g/dL (30.0-36.0); Mean Corpuscular Hemoglobin 29.4 pg (28.0-34.0); Mean Corpuscular Volume 93.5 fL (81-99); Monocytes # 0.5 10^3/uL (0.2-0.9); Monocytes % 5.4 %; Neutrophils % 83.2 %; Nucleated Red Blood Cells % 0 %; Platelet Count 109 10^3/cmm (130-400); Red Blood Count 2.93 10^6/uL (4.1-5.3); Red Cell Distribution Width 15.2 % (12.1-15.1); White Blood Count 8.4 10^3/uL (4.0-10.0)
[2019-11-22 05:41] LABS: Alanine Aminotransferase 51 U/L (0-33); Albumin Level 2.9 g/dL (3.5-5.2); Alkaline Phosphatase 66 IU/L (35-105); Anion Gap 15.9 (5-19); Aspartate Amino Transferase 38 U/L (0-32); Blood Urea Nitrogen 37 mg/dL (8-23); Calcium 8.4 mg/Dl (8.8-10.2); Carbon Dioxide 20 mmol/L (22-29); Chloride 110 mmol/L (98-107); Globulin 2.5 g/dL (1.3-4.6); Glucose 154 mg/dL (74-106); Potassium 3.9 mmol/L (3.5-5.1); Sodium 142 mmol/L (136-145); Total Bilirubin 0.5 mg/dL (0.15-1.2); Total Protein 5.4 g/dL (6.6-8.7)
[2019-11-22] MEDS: nitroglycerin drip 50 MG/250 ML PREMIX 22.5 MG IV (05:46)
--- NOTE | 2019-11-22 06:00 | XRR_ITS ---
PROCEDURE INFORMATION: Exam: XR Chest, 1 View Exam date and time: 11/22/2019 5:04 AM Age: 69 years old Clinical indication: Device placement; Prior surgery; Surgery date: 3-7 days post-operative; Surgery type: Cabg; Patient HX: Chest tube, et, swan, pacers, central ling; Additional info: Pod #3 status post cabg TECHNIQUE: Imaging protocol: XR of the chest Views: 1 view. COMPARISON: CR XR chest 1V portable [id number] 11/21/2019 5:07 AM FINDINGS: Tubes, catheters and devices: Tip of the ET tube still relatively close to the not well visualized jorge. Stable positioning of the right IJ catheter and the enteric tube. No change in the left chest tube. Lungs: Volume loss in the left lung base still the likely cause for the elevation of the left hemidiaphragm. No interval consolidation. Pleural space: No interval pneumothorax or large pleural effusion. Heart/Mediastinum: Previous mediastinal surgery again evident. Stable cardiomegaly. Bones/joints: Continued right convex thoracolumbar scoliosis. No apparent acute bony disease. XR/XR chest 1V portable [id number] IMPRESSION: 1. No change in positioning of the life supporting tubes. Tip of the ET tube still relatively close to the jorge. 2. Continued probable atelectasis in the left lung base. Stable cardiomegaly.
[2019-11-22] MEDS: propofol 1,000 MG/100 ML INJ 15.5 MG IV ×2 (06:11→11:04)
--- NOTE | 2019-11-22 07:36 | PC.NURSE ---
Patient intubated and sedated
[2019-11-22 08:26] LABS: Glucose Point of Care 164 mg/dL (70-110)
--- NOTE | 2019-11-22 08:46 | PC.NURSE ---
Call placed to pharmacy to verify that morning meds can be crushed. Pharmacist Bakari states all morning meds can be safely administered at this time.
[2019-11-22] MEDS: aspirin 325 mg Tablet PO (09:01)
[2019-11-22] MEDS: levothyroxine 88 mcg Tablet PO (09:01)
--- NOTE | 2019-11-22 09:09 | PC.OT ---
OT evaluation on hold secondary to patient intubated and sedated this AM.
--- NOTE | 2019-11-22 09:15 | PC.NURSE ---
Dr. Stanford at bedside to round. Updated him on patient's CO/CI/ and TPRI as shown by cheetah monitor. Discussed fluid volume status. Instructions from Dr. Stanford to attempt to titrate nitro down and start nipride. Awaiting hot strip mill supervisor to round at this time.
[2019-11-22] MEDS: liothyronine 5 mcg Tablet PO (09:43)
[2019-11-22] MEDS: chlorhexidine gluconate 0.12% Btl 473 mL 15 ML MUCOUS MEM ×2 (09:43→18:13)
[2019-11-22] MEDS: metoprolol tartrate 25 mg Tablet 12.5 MG PO (09:44)
[2019-11-22] MEDS: mupirocin oint 22 gm 1 APPLIC NASAL ×2 (09:46→18:14)
[2019-11-22] MEDS: pantoprazole 40 mg SDV IVP (09:47)
[2019-11-22] MEDS: neomycin-poly-bacitracin oint 0.9 gm Pkt 1 APPLIC TOPICAL ×2 (09:47→18:14)
--- NOTE | 2019-11-22 10:14 | P.PN_ITS ---
Subjective Subjective: Interval history: Eliana is struggling a little bit. Yesterday her urine output was not good. Dr. Stanford started a Lasix drip for several hours. This improved her urine output but concern for her kidneys caused him to stop the drip. She was also given some albumin. Her blood pressure went up. She was started on intravenous nitroglycerin. The dose of this became so high that this morning it was weaned and she was started on nitroprusside. Her urine output has dropped off some. She is still on intravenous amiodarone for the atrial fibrillation. She is in sinus rhythm. When one looks at her cumulative intake and output she is about 6 L to the positive. She also weighs 30 pounds more today than she did when she came in. We have also been unable to extubate her due to failing the weaning trial. Her creatinine remains stable but mildly elevated. Glucoses are in the mid 100s. She has mild increase in her transaminases. Blood pressures now are at the upper limit of normal. Medications: Reviewed: Yes Vitals/I&O/Wt Last Vital Signs Temp 99.6 F 11/22/19 08:12 Pulse 82 11/22/19 06:00 Resp 16 11/22/19 07:34 BP 135/56 11/22/19 06:00 Pulse Ox 95 11/22/19 06:00 11/21/19 11/22/19 11/22/19 22:59 06:59 14:59 Intake Total 928.404 / 1944.462 439.350 / 2383.812 1.654 / 1.654 Output Total 1345 / 1835 845 / 2680 Balance -416.596 / 109.462 -405.650 / -296.188 1.654 / 1.654 Physical Exam Narrative: EXAM NARRATIVE: GENERAL: In general she is sedated and intubated. HEENT: Exam within normal limits. NECK: Supple without jugular vein distention. The carotid upstroke is normal without bruits. BACK: Exam normal. LUNGS: Clear. HEART: Regular rate and rhythm. ABDOMEN: Benign without organomegaly or tenderness. EXTREMITIES: No edema. NEUROLOGIC: Exam not done. SKIN: Unremarkable. Urinary Catheter Management^: Mayorga Latex: Cath Placed During This Visit: no Data : 11/22/19 04:56 11/22/19 04:56 Micro: Microbiology 11/20/19 10:08 Blood Culture - Preliminary Blood NEGATIVE TO DATE 11/20/19 11:15 Body Fluid Culture - Preliminary Pericardial Fluid 11/20/19 11:15 Body Fluid Culture - Preliminary Pleural Fluid 11/20/19 09:01 Blood Culture - Preliminary Blood NEGATIVE TO DATE A&P Assessment and plan (1) Glucose intolerance: Status: Acute Code(s): E74.39 - Other disorders of intestinal carbohydrate absorption (2) Hypernatremia: Status: Acute Code(s): E87.0 - Hyperosmolality and hypernatremia (3) Anemia: Status: Acute Qualifiers: Anemia type: other cause Other causes of anemia: acute posthemorrhagic Qualified Code(s): D62 - Acute posthemorrhagic anemia Code(s): D64.9 - Anemia, unspecified (4) CAD (coronary artery disease): Status: Acute Qualifiers: Coronary Disease-Associated Artery/Lesion type: [place] artery [place] vs. transplanted heart: [place] heart Associated angina: with unstable angina Qualified Code(s): I25.110 - Atherosclerotic heart disease of [place] coronary artery with unstable angina pectoris Code(s): I25.10 - Atherosclerotic heart disease of [place] coronary artery without angina pectoris (5) Atrial fibrillation with RVR: Status: Acute Code(s): I48.91 - Unspecified atrial fibrillation (6) Acute kidney injury superimposed on CKD: Status: Acute Code(s): N17.9 - Acute kidney failure, unspecified; N18.9 - Chronic kidney disease, unspecified (7) Metabolic acidosis: Status: Acute Code(s): E87.2 - Acidosis (8) Status post aorto-coronary artery bypass graft: Status: Acute Code(s): Z95.1 - Presence of aortocoronary bypass graft (9) Left main coronary artery disease: Status: Acute Code(s): I25.10 - Atherosclerotic heart disease of [place] coronary artery without angina pectoris (10) Hypothyroid: Status: Chronic Qualifiers: Hypothyroidism type: acquired Qualified Code(s): E03.9 - Hypothyroidism, unspecified Code(s): E03.9 - Hypothyroidism, unspecified (11) Accelerated essential hypertension: Status: Chronic Code(s): I10 - Essential (primary) hypertension (12) NSTEMI (non-ST elevated myocardial infarction): Status: Acute Code(s): I21.4 - Non-ST elevation (NSTEMI) myocardial infarction (13) Transaminitis: Status: Acute Code(s): R74.0 - Nonspecific elevation of levels of transaminase and lactic acid dehydrogenase [LDH] Additional A&P Information Hopefully we can wean off the antihypertensives. We will continue to work to extubate her. Urine output is adequate. She is clearly volume overloaded as she has 6 L to the plus on intake and outtake and she weighs 30 pounds more now than she did previously. Pushing the diuretics however decreases her intravascular volume putting her kidneys at risk. We will slowly try to diurese her over time. I am going to increase her beta-radha to try to get better control of her heart rate and bring her blood pressure down a little bit. We will continue to slowly wean her and hope to extubate her. Attestations Medical Necessity Statement*: Needs continued hospitalization for management of coronary bypass surgery Time Spent in Patient Care: Greater than 35 minutes Critical Care Time: Critical Care Time (min): 15 Coding Level of Care Code Acute Costume Seamstress for Chg Fwd History Comprehensive Exam Comprehensive Medical Decision Making High Complexity Diagnoses Glucose intolerance E74.39 Hypernatremia E87.0 Anemia D62 Anemia type: other cause Other causes of anemia: acute posthemorrhagic CAD (coronary artery disease) I25.110 Coronary Disease-Associated Artery/Lesion type: [place] artery [place] vs. transplanted heart: [place] heart Associated angina: with unstable angina Atrial fibrillation with RVR I48.91 Acute kidney injury superimposed on CKD N17.9; N18.9 Metabolic acidosis E87.2 Status post aorto-coronary artery bypass graft Z95.1 Left main coronary artery disease I25.10 Hypothyroid E03.9 Hypothyroidism type: acquired Accelerated essential hypertension I10 NSTEMI (non-ST elevated myocardial infarction) I21.4 Transaminitis R74.0 Time Spent (min) 40
--- NOTE | 2019-11-22 10:14 | PC.NURSE ---
Dr. Grullon came to bedside to round. Update given.
--- NOTE | 2019-11-22 10:36 | PC.NURSE ---
Verified Patient's metoprolol administration with Dr. Grullon. Instructions to give new 25mg order.
[2019-11-22 10:46] LABS: Blood Gas Sample Type Arterial; Ionized Calcium Level - ABG 1.1 mmol/L (1.1-1.4)
[2019-11-22] MEDS: metoprolol tartrate 25 mg Tablet PO ×2 (11:20→18:13)
[2019-11-22] MEDS: amiodarone 200 mg Tablet 400 MG PO ×2 (11:21→18:13)
--- NOTE | 2019-11-22 11:31 | P.PN_ITS ---
Subjective Subjective: Interval history: Postop day #3 status post CABG We were able to get some diuresing yesterday by utilizing a Lasix drip with her overall intake and output about equal for the past 24 hours. Chest x-ray remains stable. No arrhythmias, still on amiodarone. Again had some difficulties with weaning from the ventilator though only on FiO2 of 35%. Chest x-ray remains remarkably clear despite total volume of about 6 L to the positive. She is now on a low air loss mattress. Vitals/I&O/Wt Last Vital Signs Temp 99.6 F 11/22/19 08:12 Pulse 82 11/22/19 06:00 Resp 12 11/22/19 11:14 BP 135/56 11/22/19 06:00 Pulse Ox 95 11/22/19 06:00 11/21/19 11/22/19 11/22/19 22:59 06:59 14:59 Intake Total 928.404 / 1944.462 439.350 / 2383.812 77.346 / 77.346 Output Total 1345 / 1835 845 / 2680 Balance -416.596 / 109.462 -405.650 / -296.188 77.346 / 77.346 Physical Exam Chest: COMMONS NORMALS: inspection of chest normal (Surgical dressings in place. Sternum stable. Wound VAC in position.) Resp: COMMON NORMALS: clear to auscultation bilaterally AUSCULTATION: clear to auscultation bilaterally Cardio: COMMON NORMALS: regular rate, regular rhythm, S1 normal heart sound and no murmurs RATE: regular rate RHYTHM: regular rhythm HEART SOUNDS: S1 normal Extremity: GENERAL: Yes edema Urinary Catheter Management^: Mayorga Latex: Cath Placed During This Visit: no Data : 11/22/19 04:56 11/22/19 04:56 Micro: Microbiology 11/20/19 11:15 Body Fluid Culture - Preliminary Pleural Fluid 11/20/19 11:15 Body Fluid Culture - Preliminary Pericardial Fluid 11/20/19 10:08 Blood Culture - Preliminary Blood NEGATIVE TO DATE 11/20/19 09:01 Blood Culture - Preliminary Blood NEGATIVE TO DATE A&P Assessment and plan (1) Status post aorto-coronary artery bypass graft: Postop day #3 status post CABG We will need to continue to attempt to mobilize third spaced fluid and diurese. We may need to be patient with this so as not to create excessive intravascular volume depletion. I greatly appreciate the expertise of Dr. Grullon from our cardiology service as well as our hospitalist service colleagues. Status: Acute Code(s): Z95.1 - Presence of aortocoronary bypass graft Attestations Medical Necessity Statement*: Postop day #3 status post CABG Time Spent in Patient Care: 16 - 35 minutes Coding Level of Care Code Acute Bulk Fluids Handler for Chg Fwd Diagnoses Status post aorto-coronary artery bypass graft Z95.1
[2019-11-22 13:07] LABS: Glucose Point of Care 130 mg/dL (70-110)
--- NOTE | 2019-11-22 14:33 | PM.PN ---
Subjective Subjective: Interval history: Intubated, sedated. Medications: Reviewed: Yes Vitals/I&O/Wt Last Vital Signs Temp 99.6 F 11/22/19 08:12 Pulse 82 11/22/19 06:00 Resp 12 11/22/19 13:36 BP 135/56 11/22/19 06:00 Pulse Ox 95 11/22/19 06:00 11/21/19 11/22/19 11/22/19 22:59 06:59 14:59 Intake Total 928.404 / 1944.462 439.350 / 2383.812 77.346 / 77.346 Output Total 1345 / 1835 845 / 2680 550 / 550 Balance -416.596 / 109.462 -405.650 / -296.188 -472.654 / -472.654 Weight last 48 hrs Weight 100.743 kg Physical Exam Const: COMMON NORMALS: no apparent distress OTHER: Intubated, sedated. HENMT: COMMON NORMALS: oropharynx normal Neck/C-Spine: COMMON NORMALS: no JVD OTHER: Right IJ CVC. Chest: OTHER: Mediastinal drains. Resp: COMMON NORMALS: normal respiratory effort OTHER: Faint crackles on the left. Cardio: COMMON NORMALS: no JVD, regular rhythm, S1 normal heart sound, S2 normal heart sound and no murmurs RHYTHM: regular rhythm HEART SOUNDS: S1 normal and S2 normal GI: COMMON NORMALS: normal to inspection, nondistended, normoactive bowel sounds, soft to palpation and non-tender PALPATION: Yes soft Extremity: COMMON NORMALS: no joint enlargement and no pedal edema NARRATIVE EXTREMITY EXAM: Right groin appears clean, without bruising, swelling or erythema. Left leg with mild swelling, no bruising or bleeding. Neuro: COMMON NORMALS: moves all extremities Skin: COMMON NORMALS: no rashes or lesions noted GENERAL SKIN EXAM: no rashes or lesions noted Urinary Catheter Management^: Mayorga Latex: Cath Placed During This Visit: no Data : 11/22/19 04:56 11/22/19 04:56 Micro: Microbiology 11/20/19 11:15 Body Fluid Culture - Preliminary Pleural Fluid 11/20/19 11:15 Body Fluid Culture - Preliminary Pericardial Fluid 11/20/19 10:08 Blood Culture - Preliminary Blood NEGATIVE TO DATE 11/20/19 09:01 Blood Culture - Preliminary Blood NEGATIVE TO DATE A&P Assessment and plan (1) NSTEMI (non-ST elevated myocardial infarction): Difficulty with weaning trial, has been weak with low inspiratory volumes. Fluid overloaded, with concomitant acute kidney injury. On Lasix drip for a short time last night. Low urine output yesterday. Did put out more urine after an albumin infusion. Would continue diuresis as needed to help remove excess volume, possibly with intermittent albumin infusions to avoid intravascular depletion. Acute kidney injury appears to be prerenal by FE urea, possibly secondary to fluctuating blood pressures at that time which now have stabilized, and have remained elevated requiring nitroglycerin and then nitroprusside drip. Possible component of contrast nephropathy. We will recheck urine studies as creatinine today again 1.7, at this point may be secondary to ATN. Will review her medications, check CK to see if anything can be contributing to weakness and difficulties with weaning trial. TSH was low on presentation, and she takes levothyroxine and liothyronine. Will obtain a thyroid panel. With possible component of pulmonary hypertension contributing to hypoxia with PA pressure noted elevated on TTE. Fever resolved without evidence of infection, possibly related to left lower lobe atelectasis, versus related to antibiotic. No DVT of either lower extremity. Continue to monitor hemoglobin. Appears to have stabilized with hemolysis likely at least partially related to mechanical circulatory support, in part possibly secondary to antibiotic. Peripheral smear unremarkable apart from thrombocytopenia. PPI added prophylactically due to continued need for intubation, thrombocytopenia. Continue SCD for DVT prophylaxis. Consider addition of pharmacologic DVT prophylaxis when deemed safe by surgery. Status: Acute Code(s): I21.4 - Non-ST elevation (NSTEMI) myocardial infarction (2) Metabolic acidosis: Anion gap and non-gap metabolic acidosis. With hyperchloremic acidosis. Lactic acid, serum ketones, both normal. Appears related to acute kidney injury. Status: Acute Code(s): E87.2 - Acidosis (3) Acute kidney injury superimposed on CKD: Creatinine stabilized around 1.7. Prerenal according to FEurea. On review of blood pressures had episodes of hypotension while in A. fib with RVR. These have resolved. We will repeat urine studies. Reassess creatinine ovation possibly again prerenal versus ATN. Possible contribution of contrast nephropathy. Status: Acute Code(s): N17.9 - Acute kidney failure, unspecified; N18.9 - Chronic kidney disease, unspecified (4) Atrial fibrillation with RVR: Transition to oral amiodarone, continue metoprolol. In SR. Status: Acute Code(s): I48.91 - Unspecified atrial fibrillation (5) Accelerated essential hypertension: Blood pressure at goal. Status: Chronic Code(s): I10 - Essential (primary) hypertension (6) Hypothyroid: Status: Chronic Qualifiers: Hypothyroidism type: acquired Qualified Code(s): E03.9 - Hypothyroidism, unspecified Code(s): E03.9 - Hypothyroidism, unspecified Additional A&P Information She is not normally on oxygen at home. Attestations Medical Necessity Statement*: Continue admission versus management following CABG, weaning off mechanical ventilatory support and management of fluid overload, acute kidney injury. Critical Care Time: In addition to noncritical issues, 50 minutes critical care time spent on assessment of hemodynamic status, volume status, renal function and acute kidney injury respiratory status and support, evaluation of readiness for extubation. Critical Care Time (min): 15 Coding Level of Care Code Acute [employer]iconductors Wafer Breaker for Chg Fwd Diagnoses NSTEMI (non-ST elevated myocardial infarction) I21.4 Metabolic acidosis E87.2 Acute kidney injury superimposed on CKD N17.9; N18.9 Atrial fibrillation with RVR I48.91 Accelerated essential hypertension I10 Hypothyroid E03.9 Hypothyroidism type: acquired
[2019-11-22 15:33] LABS: Free T4 Free Thyroxine 1.55 ng/dL (0.82-1.77); T3 Free 1.8 PG/ML (2.0-4.4); Thyroid Stimulating Hormone 0.03 uIU/mL (0.27-4.20)
[2019-11-22 16:05] LABS: Urea Nitrogen,Urine Random 740 mg/dL
[2019-11-22 16:11] LABS: Creatine Phosphokinase 402 U/L (26-192)
[2019-11-22 16:18] LABS: Urine Creatinine 141 mg/dL (28-217)
[2019-11-22 17:42] LABS: Glucose Point of Care 108 mg/dL (70-110)
[2019-11-22] MEDS: FUROsemide 10 mg/mL SDV 4mL 40 MG IVP ×2 (17:58→18:12)
[2019-11-22] MEDS: propofol 1,000 MG/100 ML INJ 20.7 MG IV (18:19)
--- NOTE | 2019-11-22 18:39 | PC.NURSE ---
SHIFT SUMMARY Patient placed on cheetah monitor early on in shift. Electrolytes replaced per Abdoulaye. Potassium replaced with 40kRider. Patient transitioned from nitro to nipride and this improved hemodynamics. From there, patient was PO loaded with amio and metoprolol orders increased per Dr. Grullon. Amio titrated off. Propofol titrated down to assess patient's neuro status. Patient follows all commands and moves all extremeties equally. Patient weight obtained and patient noted to now weigh 122 pounds which is up from 190 pounds on admission. Lasix orders placed in the afternoon per Dr. Grullon. Patient diuresing well at this time. Patient is now on propofol at [address] Grullon and Dr. Aguilar updated on patient's improvement. Attempt to call [facility] [place] [facility] to update. Reached voicemail.
[2019-11-22] MEDS: morphine 4 mg/mL SDV 1 mL 2 MG IVP (20:22)
[2019-11-22 21:54] LABS: Glucose Point of Care 120 mg/dL (70-110)
[2019-11-22] MEDS: atorvastatin 40 mg Tablet 20 MG PO (22:41)
--- NOTE | 2019-11-22 23:35 | PC.NURSE ---
Sedation vacation @ this time for possible extubation.
[2019-11-23] VITALS (60 sets, daily range): BP systolic 123–175; BP diastolic 55–91; PULSE 73–99; RESP 0–26; TEMP 37–37.4; O2SAT 91–98
--- NOTE | 2019-11-23 00:12 | PC.RESP ---
placed pt on psv pt did not tolerate, increased rep. rate, increased blood pressure, pt not able to follw command consistiently. placed pt back om mmv
--- NOTE | 2019-11-23 01:00 | PC.NURSE ---
Pt gradually weaned from sedation, vital signs remained stable. Pt moves all extremities. On neuro assessment, pt was not able to complete the 6 cardinal corbett of gaze. Eyes deviated to a left side gaze. Pt answered questions appropriately and followed commands appropriately otherwise. Pt was able to communicate how many fingers nurse held up and that her neck and back hurt. Hospitalist called to bedside to evaluate pt. Vent settings weaned to cpap mode, pt tidal volumes did not exceed 350 and respiratory rate increased to 30 bpm. Pt tired easily, vent mode eventually returned to SIMV Tv 450 Peep 6 PS 8 R10 o2 30%. Sedation not restarted at this time to be able to continue to monitor neurological status.
--- NOTE | 2019-11-23 03:01 | PC.NURSE ---
Pt waking spontaneously, less stimuli needed to keep pt awake. Pt communicated that she is tired, pt range of eye movement improving, able to track some movement to pt right side. Vent settings unchanged, vitals remain stable.
[2019-11-23] MEDS: morphine 4 mg/mL SDV 1 mL 2 MG IVP ×4 (03:44→17:56)
[2019-11-23 05:05] LABS: Basophils % 0.6 %; Eosinophils # 0.1 10^3/uL (0.0-0.8); Eosinophils % 1.2 %; Hematocrit 28.8 % (37.0-47.0); Lymphocytes # 0.6 10^3/uL (0.8-4.8); Mean Corpuscular HGB Conc 31.3 g/dL (30.0-36.0); Mean Corpuscular Hemoglobin 29.4 pg (28.0-34.0); Mean Corpuscular Volume 94.1 fL (81-99); Mean Platelet Volume 12.9 fL (7.4-10.4); Monocytes # 0.6 10^3/uL (0.2-0.9); Monocytes % 8.2 %; Neutrophils # 5.5 10^3/uL (1.8-7.7); Neutrophils % 80.1 %; Nucleated Red Blood Cells % 0.3 %; Platelet Count 141 10^3/cmm (130-400); Red Blood Count 3.06 10^6/uL (4.1-5.3); Red Cell Distribution Width 14.7 % (12.1-15.1); White Blood Count 6.9 10^3/uL (4.0-10.0)
[2019-11-23 05:32] LABS: Alanine Aminotransferase 44 U/L (0-33); Alkaline Phosphatase 138 IU/L (35-105); Aspartate Amino Transferase 34 U/L (0-32); Blood Urea Nitrogen 40 mg/dL (8-23); Calcium 8.9 mg/Dl (8.8-10.2); Carbon Dioxide 24 mmol/L (22-29); Chloride 108 mmol/L (98-107); Glucose 139 mg/dL (74-106); Sodium 145 mmol/L (136-145); Total Bilirubin 0.5 mg/dL (0.15-1.2)
[2019-11-23] MEDS: metoprolol tartrate 25 mg Tablet PO (05:55)
--- NOTE | 2019-11-23 06:00 | XRR_ITS ---
PROCEDURE INFORMATION: Exam: XR Chest, 1 View Exam date and time: 11/23/2019 4:59 AM Age: 69 years old Clinical indication: Other: Chest pain/non stemi; Prior surgery; Surgery date: 6+ months; Surgery type: Cabg; Additional info: Hypoxia TECHNIQUE: Imaging protocol: XR of the chest Views: 1 view. COMPARISON: CR XR chest 1V portable [id number] 11/22/2019 4:52 AM FINDINGS: Patient is rotated and lung volumes are low, limiting assessment. Examination limited by artifacts from patient body habitus. Proximal port of NG tube again projects over distal esophageal level, should be advanced about 7 CM. Similar position of remaining visualized support tubes as well. Ill-defined opacification at each lung base is most compatible with atelectasis/infiltrate with adjacent pleural effusion, mild on right and moderate on left. Findings appear mostly new on right and similar on left. No significant vascular congestion is demonstrated. There is scattered pulmonary scarring bilaterally. Visualized cardiac silhouette size appears moderately enlarged, accentuated by low lung volumes. Pericardial effusion not excluded. Changes from median sternotomy. XR/XR chest 1V portable [id number] IMPRESSION: Proximal port of NG tube again projects over distal esophageal level, should be advanced about 7 CM. Ill-defined opacification at each lung base is most compatible with atelectasis/infiltrate with adjacent pleural effusion, mild on right and moderate on left. Findings appear mostly new on right and similar on left. Visualized cardiac silhouette size appears moderately enlarged, accentuated by low lung volumes. Pericardial effusion not excluded.
--- NOTE | 2019-11-23 07:27 | PM.PN ---
Subjective Subjective: Interval history: Late yesterday afternoon, I started the patient back on Lasix 40 mg IV twice daily. She has had about 1400 mL of urine output since then. The total urine output was 2900 mL. Overnight a couple of attempts were made to decrease the sedation and potentially wean her from the ventilator. She apparently becomes fairly agitated and her blood pressure goes up. The night nurse told me this morning that she feels like the patient has a left-sided gaze preference. She is moving both arms. The patient was not extubated. When she gets agitated her blood pressure goes up quite a bit. The nurses then use the morphine to help settle things down. All the drips are off. I changed the amiodarone to a by mouth form yesterday. Medications: Reviewed: Yes Vitals/I&O/Wt Last Vital Signs Temp 99.1 F 11/23/19 05:30 Pulse 74 11/23/19 06:30 Resp 15 11/23/19 07:21 BP 146/62 11/23/19 06:30 Pulse Ox 95 11/23/19 07:21 11/22/19 11/23/19 11/23/19 22:59 06:59 14:59 Intake Total 664.318 / 741.664 12.715 / 754.379 Output Total 1775 / 2325 730 / 3055 Balance -1110.682 / -1583.336 -717.285 / -2300.621 Weight last 48 hrs Weight 228 lb 1.6 oz Weight 222 lb 1.6 oz Physical Exam Narrative: EXAM NARRATIVE: GENERAL: Still intubated but neurologically seems to be lightening up somewhat. HEENT: Exam within normal limits. NECK: Supple without jugular vein distention. The carotid upstroke is normal without bruits. BACK: Exam normal. LUNGS: Clear. HEART: Regular rate and rhythm. ABDOMEN: Benign without organomegaly or tenderness. EXTREMITIES: No edema. NEUROLOGIC: Exam not done. SKIN: Unremarkable. Urinary Catheter Management^: Mayorga Latex: Cath Placed During This Visit: no Data : 11/23/19 04:43 11/23/19 04:43 Micro: Microbiology 11/20/19 11:15 Body Fluid Culture - Preliminary Pleural Fluid 11/20/19 11:15 Body Fluid Culture - Preliminary Pericardial Fluid A&P Assessment and plan (1) Transaminitis: Status: Acute Code(s): R74.0 - Nonspecific elevation of levels of transaminase and lactic acid dehydrogenase [LDH] (2) Glucose intolerance: Status: Acute Code(s): E74.39 - Other disorders of intestinal carbohydrate absorption (3) Hypernatremia: Status: Acute Code(s): E87.0 - Hyperosmolality and hypernatremia (4) Anemia: Status: Acute Qualifiers: Anemia type: other cause Other causes of anemia: acute posthemorrhagic Qualified Code(s): D62 - Acute posthemorrhagic anemia Code(s): D64.9 - Anemia, unspecified (5) CAD (coronary artery disease): Status: Acute Qualifiers: Coronary Disease-Associated Artery/Lesion type: mo[place]gan artery [place] vs. transplanted heart: mohegan heart Associated angina: with unstable angina Qualified Code(s): I25.110 - Atherosclerotic heart disease of mohegan coronary artery with unstable angina pectoris Code(s): I25.10 - Atherosclerotic heart disease of mohegan coronary artery without angina pectoris (6) Atrial fibrillation with RVR: Status: Acute Code(s): I48.91 - Unspecified atrial fibrillation (7) Acute kidney injury superimposed on CKD: Status: Acute Code(s): N17.9 - Acute kidney failure, unspecified; N18.9 - Chronic kidney disease, unspecified (8) Metabolic acidosis: Status: Acute Code(s): E87.2 - Acidosis (9) Status post aorto-coronary artery bypass graft: Status: Acute Code(s): Z95.1 - Presence of aortocoronary bypass graft (10) Left main coronary artery disease: Status: Acute Code(s): I25.10 - Atherosclerotic heart disease of mohegan coronary artery without angina pectoris (11) Chronic kidney disease: Status: Acute Qualifiers: Chronic kidney disease stage: stage 2 (mild) Qualified Code(s): N18.2 - Chronic kidney disease, stage 2 (mild) Code(s): N18.9 - Chronic kidney disease, unspecified (12) Hypothyroid: Status: Chronic Qualifiers: Hypothyroidism type: acquired Qualified Code(s): E03.9 - Hypothyroidism, unspecified Code(s): E03.9 - Hypothyroidism, unspecified (13) Accelerated essential hypertension: Status: Chronic Code(s): I10 - Essential (primary) hypertension (14) NSTEMI (non-ST elevated myocardial infarction): Status: Acute Code(s): I21.4 - Non-ST elevation (NSTEMI) myocardial infarction Additional A&P Information She is diuresing some but is still volume up. We will continue to wean to extubate. Attestations Medical Necessity Statement*: Not applicable Coding Level of Care Code Acute Brim Pouncer Machine Operator for Chg Fwd History Comprehensive Exam Comprehensive Medical Decision Making High Complexity Diagnoses Transaminitis R74.0 Glucose intolerance E74.39 Hypernatremia E87.0 Anemia D62 Anemia type: other cause Other causes of anemia: acute posthemorrhagic CAD (coronary artery disease) I25.110 Coronary Disease-Associated Artery/Lesion type: mo[place] artery [place] vs. transplanted heart: mohegan heart Associated angina: with unstable angina Atrial fibrillation with RVR I48.91 Acute kidney injury superimposed on CKD N17.9; N18.9 Metabolic acidosis E87.2 Status post aorto-coronary artery bypass graft Z95.1 Left main coronary artery disease I25.10 Chronic kidney disease N18.2 Chronic kidney disease stage: stage 2 (mild) Hypothyroid E03.9 Hypothyroidism type: acquired Accelerated essential hypertension I10 NSTEMI (non-ST elevated myocardial infarction) I21.4
[2019-11-23 07:28] LABS: Glucose Point of Care 130 mg/dL (70-110)
--- NOTE | 2019-11-23 08:59 | PC.OT ---
OT evaluation unable to be completed secondary to patient being intubated this AM.
[2019-11-23] MEDS: chlorhexidine gluconate 0.12% Btl 473 mL 15 ML MUCOUS MEM (09:00)
--- NOTE | 2019-11-23 09:19 | CTR_ITS ---
PROCEDURE INFORMATION: Exam: CT Head Without Contrast Exam date and time: 11/23/2019 9:30 AM Age: 69 years old Clinical indication: Altered mental status/memory loss; Additional info: Suspected CVA TECHNIQUE: Imaging protocol: Computed tomography of the head without contrast. Total DLP: 851.91 mGy-cm Radiation optimization: All CT scans at this facility use at least one of these dose optimization techniques: automated exposure control; mA and/or kV adjustment per patient size (includes targeted exams where dose is matched to clinical indication); or iterative reconstruction. COMPARISON: No relevant prior studies available. FINDINGS: Limitations: Streak artifact from an external monitor. Brain: No acute brain parenchymal abnormality. No intracranial hemorrhage. No extraaxial fluid collections. There is diffuse cerebral atrophy. There are white matter low attenuation changes in both cerebral hemispheres likely related to chronic small vessel disease. Ventricles: No hydrocephalus when allowing for the atrophy. Bones/joints: No calvarial fracture. There is hyperostosis frontalis interna. Sinuses: There is multifocal mucoperiosteal thickening. No fluid in the visualized paranasal sinuses. Mastoid air cells: Bilateral mastoid air cell effusions present. Auditory system: Partial opacification of the right middle ear which could be due to a middle ear effusion or otitis media. The left middle ear is aerated. Soft tissues: No acute soft tissue abnormality. CT/CT head wo con* [id number] IMPRESSION: 1. No acute intracranial abnormality. 2. Bilateral mastoid air cell effusions. 3. Right middle ear effusion or otitis media. Radiation Dose CTDIVOL = (mGy): DLP = 851.91 (mGy-cm)
[2019-11-23] MEDS: FUROsemide 10 mg/mL SDV 4mL 40 MG IVP ×2 (09:26→17:40)
[2019-11-23] MEDS: liothyronine 5 mcg Tablet PO (09:26)
[2019-11-23] MEDS: levothyroxine 88 mcg Tablet PO (09:26)
[2019-11-23] MEDS: neomycin-poly-bacitracin oint 0.9 gm Pkt 1 APPLIC TOPICAL ×2 (09:26→17:39)
[2019-11-23] MEDS: aspirin 325 mg Tablet PO (09:26)
[2019-11-23] MEDS: pantoprazole 40 mg SDV IVP (09:26)
[2019-11-23] MEDS: amiodarone 200 mg Tablet 400 MG PO (09:26)
[2019-11-23] MEDS: mupirocin oint 22 gm 1 APPLIC NASAL ×2 (09:28→18:12)
--- NOTE | 2019-11-23 10:00 | PC.NURSE ---
CHEST TUBE REMOVAL Chest tubes and pacer wires pulled by Dr. Stanford this am. Dressing applied. No drainage noted. Patient tolerated procedure well.
--- NOTE | 2019-11-23 10:05 | P.PN_ITS ---
Subjective Subjective: Interval history: Postop day #4 status post CABG. Failed weaning extubation trial yesterday evening. There is been some concerns raised about possible left-sided neglect though she is moving all extremities spontaneously and to command and also answers questions yes and no by shaking her head appropriately to questions. We do have a CT scan pending. She had low chest tube output. I will remove the chest tubes and pacing wires to allow for easier transport and as well hopefully to allow for easier ventilator weaning. I have conferred with my colleague Dr. Irby and I think it is a certainly appropriate to consider anticoagulation if he so desires and I do feel that it is safe to do that at this time. Greatly appreciate the expertise and oversight of Dr. Grullon from cardiology. She did diurese -2 L yesterday she probably is still 3 or 4 L positive however. Also of note there is probably a small right pleural effusion developing. The chest x-ray performed today was rotated. Vitals/I&O/Wt Last Vital Signs Temp 99.1 F 11/23/19 05:30 Pulse 74 11/23/19 06:30 Resp 17 11/23/19 09:29 BP 146/62 11/23/19 06:30 Pulse Ox 95 11/23/19 07:21 11/22/19 11/23/19 11/23/19 22:59 06:59 14:59 Intake Total 664.318 / 741.664 12.715 / 754.379 Output Total 1775 / 2325 730 / 3055 Balance -1110.682 / -1583.336 -717.285 / -2300.621 Weight last 48 hrs Weight 228 lb 1.6 oz Weight 222 lb 1.6 oz Physical Exam Chest: COMMONS NORMALS: inspection of chest normal (Drains and pacing wires were discontinued. Wound VAC dressing remains in place. Sternum stable to palpation.) Resp: AUSCULTATION: diminished lung sounds bilateral in the lower lung corbett Cardio: COMMON NORMALS: regular rate, regular rhythm and S1 normal heart sound RATE: regular rate RHYTHM: regular rhythm HEART SOUNDS: S1 normal Urinary Catheter Management^: Mayorga Latex: Cath Placed During This Visit: no Data : 11/23/19 04:43 11/23/19 04:43 Micro: Microbiology 11/20/19 11:15 Body Fluid Culture - Final Pericardial Fluid 11/20/19 11:15 Body Fluid Culture - Final Pleural Fluid A&P Assessment and plan (1) Status post aorto-coronary artery bypass graft: Postop day #4 status post CABG Slow to wean from ventilator CT scan pending Drains and pacer wires discontinued. Status: Acute Code(s): Z95.1 - Presence of aortocoronary bypass graft Attestations Medical Necessity Statement*: Postop day #4 status post CABG Time Spent in Patient Care: 16 - 35 minutes Coding Level of Care Code Acute Overlock Collar Setter for Chg Fwd Diagnoses Status post aorto-coronary artery bypass graft Z95.1
[2019-11-23 11:39] LABS: Glucose Point of Care 135 mg/dL (70-110)
[2019-11-23] MEDS: enoxaparin 100 mg/mL Syringe SUBCUT (14:50)
--- NOTE | 2019-11-23 16:08 | PC.SOCIAL ---
Updated IMM Updated pt's family, Bela, on Pg 2 IMM via phone. No questions voiced. Provided pt a copy. Signed, dated, & timed original in chart.
--- NOTE | 2019-11-23 17:27 | PM.PN ---
Subjective Subjective: Interval history: She is intubated, sedation completely weaned off, she follows commands, this morning with concern due to keeping her head to the left, apparent left gaze preference. She is able to nod to confirm the number of fingers shown to her. In the morning was seen not tracking well. She is able to confirm symmetric sensation bilaterally, and is moving all extremities. On sensory exam this morning appear to have some neglect where she would nod yes to left side when her right side was touched. Vitals/I&O/Wt Last Vital Signs Temp 99.0 F 11/23/19 16:30 Pulse 82 11/23/19 16:30 Resp 17 11/23/19 16:30 BP 146/63 11/23/19 16:30 Pulse Ox 95 11/23/19 16:30 11/23/19 11/23/19 11/23/19 06:59 14:59 22:59 Intake Total 12.715 / 754.379 Output Total 730 / 3055 1400 / 1400 Balance -717.285 / -2300.621 -1400 / -1400 Weight last 48 hrs Weight 103.464 kg Weight 100.743 kg Physical Exam Const: COMMON NORMALS: no apparent distress OTHER: Intubated HENMT: COMMON NORMALS: oropharynx normal Neck/C-Spine: COMMON NORMALS: no JVD OTHER: Right IJ CVC. Chest: OTHER: Mediastinal drains. Resp: COMMON NORMALS: normal respiratory effort OTHER: Clear to auscultation Cardio: COMMON NORMALS: no JVD, regular rhythm, S1 normal heart sound, S2 normal heart sound and no murmurs RHYTHM: regular rhythm HEART SOUNDS: S1 normal and S2 normal GI: COMMON NORMALS: normal to inspection, nondistended, normoactive bowel sounds, soft to palpation and non-tender PALPATION: Yes soft Extremity: COMMON NORMALS: no joint enlargement and no pedal edema NARRATIVE EXTREMITY EXAM: Right groin appears clean, without bruising, swelling or erythema. Left leg with mild swelling, no bruising or bleeding. Neuro: COMMON NORMALS: moves all extremities Skin: COMMON NORMALS: no rashes or lesions noted GENERAL SKIN EXAM: no rashes or lesions noted Urinary Catheter Management^: Mayorga Latex: Cath Placed During This Visit: no Data : 11/23/19 04:43 11/23/19 04:43 Micro: Microbiology 11/20/19 11:15 Body Fluid Culture - Final Pericardial Fluid 11/20/19 11:15 Body Fluid Culture - Final Pleural Fluid A&P Assessment and plan (1) NSTEMI (non-ST elevated myocardial infarction): She has diuresed well, is in negative balance last 24 hours, although overall still in positive balance compared to presentation. She weighed 86 kg on 11/16, currently 103 kg. Her saturation did improve with diuresis, however, and she was down to 30% FiO2 this morning. She is breathing spontaneously. Sedation has been weaned off, she is awake, following commands. In the morning concern due to left side positioning of the head, left side gaze preference, apparent neglect on sensory exam where she would nod yes to left side when the right side was touched. CT of the head was obtained, telemetry neurology was contacted at [place]. CT unremarkable. On examination by the neurologist she did better, without finding of focal neurologic abnormality, with earlier findings possibly secondary to incomplete weaning of sedation. Findings and work-up as well as discussion with neurology discussed with patient's daughter and granddaughter at bedside. No suspicion for a large CVA. Per discussion with Dr Nino anticoagulation should be safe from neurological standpoint. At some point carotid Doppler may be considered. She has been in atrial fibrillation. Discussed with CT surgery, and she would be safe to start anticoagulation. Her mediastinal drains, pacer wires have been removed today. Discussed with her daughter that at this time we do not have an optimal agent for anticoagulation given long-acting nature of DOACs, with recent surgery, recent withdrawal of mediastinal tubes, as well as with borderline platelets around 100,000, whereas with acute platelet decrease, recently on heparin, with questionable, although low probability of HIT would be a potential downside of starting Lovenox. Heparin drip would contribute to her fluid overload, potentially contributing to hypoxia and delaying extubation. Since suspicion of HIT is low, with platelet decrease coinciding with anemia, with surgery and mechanical circulatory support, daughter is in agreement with trial of Lovenox at this time, monitoring of hemoglobin, and possibly transitioning to DOAC once stable. She did well on weaning trial this afternoon, with RSBI of 50, and will proceed with extubation. With possible component of pulmonary hypertension contributing to hypoxia with PA pressure noted elevated on TTE. Of note TSH was low on presentation, and she takes levothyroxine and liothyronine. TSH and free T3 again low, suspected secondary to sick euthyroid syndrome currently. For now we will hold off on adjusting thyroid medications. Reassess again once she is out of acute condition. Fever resolved without evidence of infection, possibly related to left lower lobe atelectasis, versus related to antibiotic. No DVT of either lower extremity. Continue to monitor hemoglobin. Appears to have stabilized with hemolysis likely at least partially related to mechanical circulatory support, in part possibly secondary to antibiotic. Peripheral smear unremarkable apart from thrombocytopenia. PPI added prophylactically due to continued need for intubation, thrombocytopenia. Status: Acute Code(s): I21.4 - Non-ST elevation (NSTEMI) myocardial infarction (2) Metabolic acidosis: Anion gap and non-gap metabolic acidosis. With hyperchloremic acidosis which has improved. Lactic acid, serum ketones, both normal. Appears related to acute kidney injury. Status: Acute Code(s): E87.2 - Acidosis (3) Acute kidney injury superimposed on CKD: With improvement with diuresis, wean off nitroglycerin drip. Prerenal according to FEurea. On review of blood pressures had episodes of hypotension while in A. fib with RVR. These have resolved. Possible contribution of contrast nephropathy. Status: Acute Code(s): N17.9 - Acute kidney failure, unspecified; N18.9 - Chronic kidney disease, unspecified (4) Atrial fibrillation with RVR: Transitioned to oral amiodarone, continue metoprolol. In SR. Status: Acute Code(s): I48.91 - Unspecified atrial fibrillation (5) Accelerated essential hypertension: Blood pressure at goal. Status: Chronic Code(s): I10 - Essential (primary) hypertension (6) Hypothyroid: Status: Chronic Qualifiers: Hypothyroidism type: acquired Qualified Code(s): E03.9 - Hypothyroidism, unspecified Code(s): E03.9 - Hypothyroidism, unspecified Additional A&P Information She is not normally on oxygen at home. Attestations Medical Necessity Statement*: Continue admission for weaning of mechanical ventilatory support, monitoring of neurological status, initiation of anticoagulation, management of fluid overload, postoperative care after CABG. Coding Level of Care Code Acute Real Estate Executive Assistant for Chg Fwd Diagnoses NSTEMI (non-ST elevated myocardial infarction) I21.4 Metabolic acidosis E87.2 Acute kidney injury superimposed on CKD N17.9; N18.9 Atrial fibrillation with RVR I48.91 Accelerated essential hypertension I10 Hypothyroid E03.9 Hypothyroidism type: acquired
--- NOTE | 2019-11-23 17:37 | PC.RESP ---
extubated pt extubated and placed on 3lpm nc tolerated well
--- NOTE | 2019-11-23 18:00 | PC.NURSE ---
EXTUBATED Patient extubated to 4L NC.
[2019-11-23] MEDS: metoprolol tartrate 1 mg/1 mL SDV 5 mL 10 MG IV (18:05)
[2019-11-23 18:27] LABS: Glucose Point of Care 118 mg/dL (70-110)
--- NOTE | 2019-11-23 20:00 | PC.NURSE ---
Pt extubated on 4LNC sating 96%. Respirations shallow, cough is weak, left lung is diminished. Pt did not tolerate small sip of water, but could tolerate ice chips. Pt awakens easily, but does not stay awake, pt presents lethargic. Pt moves all extremities but is extremely weak, gaze preference from previous night has improved.
[2019-11-23 22:33] LABS: Glucose Point of Care 132 mg/dL (70-110)
[2019-11-24] VITALS (57 sets, daily range): BP systolic 115–188; BP diastolic 59–97; PULSE 78–97; RESP 8–26; TEMP 36.6–37; O2SAT 91–97
[2019-11-24] MEDS: labetalol 5 mg/mL SDV 20mL 10 MG IVP (00:33)
[2019-11-24] MEDS: morphine 4 mg/mL SDV 1 mL 1 MG IVP ×3 (01:13→22:01)
[2019-11-24 04:20] LABS: Basophils % 0.5 %; Eosinophils # 0.1 10^3/uL (0.0-0.8); Eosinophils % 1.2 %; Hematocrit 29.4 % (37.0-47.0); Hemoglobin 9.1 g/dL (11.5-15.3); Lymphocytes # 0.8 10^3/uL (0.8-4.8); Lymphocytes % 14.1 %; Mean Platelet Volume 12.1 fL (7.4-10.4); Monocytes # 0.5 10^3/uL (0.2-0.9); Monocytes % 9.2 %; Neutrophils # 4.4 10^3/uL (1.8-7.7); Neutrophils % 74.1 %; Nucleated Red Blood Cells % 0 %; Platelet Count 173 10^3/cmm (130-400); Red Blood Count 3.03 10^6/uL (4.1-5.3); Red Cell Distribution Width 14.3 % (12.1-15.1); White Blood Count 5.9 10^3/uL (4.0-10.0)
[2019-11-24 04:43] LABS: Alanine Aminotransferase 33 U/L (0-33); Albumin Level 2.6 g/dL (3.5-5.2); Alkaline Phosphatase 128 IU/L (35-105); Anion Gap 16.4 (5-19); Aspartate Amino Transferase 23 U/L (0-32); Blood Urea Nitrogen 35 mg/dL (8-23); Carbon Dioxide 26 mmol/L (22-29); Chloride 109 mmol/L (98-107); Globulin 3.4 g/dL (1.3-4.6); Glucose 121 mg/dL (74-106); Potassium 3.4 mmol/L (3.5-5.1); Sodium 148 mmol/L (136-145); Total Bilirubin 0.5 mg/dL (0.15-1.2)
[2019-11-24 04:57] LABS: Slide Review Slide Review Perform
[2019-11-24 04:58] LABS: Absolute Eosinophils 0.2 10^3/cmm (0.0-0.7); Absolute Segmented Neutrophil 4.6 10/cmm (1.6-7.1); Band Neutrophils Absolute 0.1 10^3/cmm (0.0-1.2); Eosinophils 4 %; Lymphocytes 14 %; Monocytes Absolute 0.1 10^3/cmm (0.1-0.6); Platelet Estimate Decreased (Normal); Segmented Neutrophils 78 %; Total Cells Counted 100 (0-100)
[2019-11-24] MEDS: labetalol 5 mg/mL SDV 20mL IVP (05:11)
--- NOTE | 2019-11-24 06:00 | XR_ITS ---
WS: [id number] CHEST XRAY TECHNIQUE: Portable chest. CLINICAL INFORMATION: Hypoxia COMPARISON: 020 FINDINGS: Right IJ central venous catheter. Heart: Sternotomy with mediastinal clips. Cardiomegaly. Lungs: Chronic emphysematous changes. Mild pulmonary vascular congestion. Left basilar atelectasis. Bones: Thoracolumbar scoliosis. XR/XR chest 1V portable [id number] IMPRESSION: 1. Right IJ central venous catheter. 2. Cardiomegaly with mildly vascular congestion and small bilateral pleural ef fusions. Subsegmental atelectasis left lung base. 3. Thoracolumbar scoliosis.
--- NOTE | 2019-11-24 06:12 | PM.PN ---
Subjective Subjective: Interval history: Postop day #5 status post CABG. She was successfully extubated. Responding appropriately though voice is very quiet. Nurses report also she is having difficulties with swallowing. Speech evaluation is in place. CT scan yesterday was negative for any acute head pathology. Apparently tele-neurology was to evaluate, though I do not see an actual note. Did receive 2 doses of as needed labetalol for hypertension. Nice diuresis of nearly 4 L spontaneously yesterday. She probably is getting close to euvolemic. Chest x-ray does show what would be expected from less than ideal tidal volumes. We will need to work on this quite a bit. Creatinine is back to baseline. There is some hypokalemia which will be replaced due to her substantial diuresis. Overall, she looks substantially improved. Vitals/I&O/Wt Last Vital Signs Temp 98 F 11/24/19 04:00 Pulse 89 11/24/19 04:30 Resp 24 H 11/24/19 05:15 BP 159/74 11/24/19 04:30 Pulse Ox 95 11/24/19 04:30 11/23/19 11/23/19 11/24/19 14:59 22:59 06:59 Intake Total 0 / 0 0 / 0 Output Total 1400 / 1400 1500 / 2900 1050 / 3950 Balance -1400 / -1400 -1500 / -2900 -1050 / -3950 Weight last 48 hrs Weight 228 lb 1.6 oz Weight 222 lb 1.6 oz Physical Exam Chest: COMMONS NORMALS: inspection of chest normal (Wound VAC remains in place along with bra. I do think a tighter bra or further lateral support of breast tissue is warranted) Resp: AUSCULTATION: diminished lung sounds diffuse Extremity: GENERAL: Yes edema (Clearly improved with a substantial diuresis over the past 48 hours) Neuro: COMMON NORMALS: moves all extremities and no focal motor deficits OTHER: Visual gaze is now crossing midline though still appears to not focus or track particularly well. No focal motor deficits and does respond appropriately to commands Urinary Catheter Management^: Mayorga Latex: Cath Placed During This Visit: no Data : 11/24/19 03:40 11/24/19 03:40 Micro: Microbiology 11/20/19 11:15 Body Fluid Culture - Final Pericardial Fluid 11/20/19 11:15 Body Fluid Culture - Final Pleural Fluid A&P Assessment and plan (1) Status post aorto-coronary artery bypass graft: Postop day 5 status post CABG. Negative CT scan of head. Diuresis of nearly 5 L over the past 2 days. Plan: Will need to receive aggressive pulmonary toilet Speech therapy evaluation Greatly appreciate the oversight and expertise of our hospitalist and cardiology colleagues. Status: Acute Code(s): Z95.1 - Presence of aortocoronary bypass graft Attestations Medical Necessity Statement*: Postop day #5 status post CABG Time Spent in Patient Care: 16 - 35 minutes Coding Level of Care Code Acute Registered Nurse Cardiac for Chg Fwd Diagnoses Status post aorto-coronary artery bypass graft Z95.1
--- NOTE | 2019-11-24 06:37 | PC.NURSE ---
Left radial art line out at this time per physician order.
[2019-11-24 07:27] LABS: Glucose Point of Care 110 mg/dL (70-110)
[2019-11-24] MEDS: potassium chloride premix 40 MEQ/100 ML PREMIX 25 MEQ IV (07:28)
[2019-11-24] MEDS: sodium chloride 0.9% 100 ML 25 ML (07:29)
[2019-11-24] MEDS: morphine 4 mg/mL SDV 1 mL 2 MG IVP ×2 (09:10→16:32)
[2019-11-24] MEDS: enoxaparin 100 mg/mL Syringe 95 MG SUBCUT ×2 (09:14→20:10)
[2019-11-24] MEDS: pantoprazole 40 mg SDV IVP (09:15)
[2019-11-24] MEDS: metoprolol tartrate 1 mg/1 mL SDV 5 mL 10 MG IV ×2 (09:15→17:01)
[2019-11-24] MEDS: neomycin-poly-bacitracin oint 0.9 gm Pkt 1 APPLIC TOPICAL ×2 (09:15→17:10)
[2019-11-24] MEDS: FUROsemide 10 mg/mL SDV 4mL 40 MG IVP ×2 (09:15→17:01)
[2019-11-24] MEDS: aspirin 300 mg Supp PR (09:15)
[2019-11-24] MEDS: ondansetron 2 mg/ML SDV 2 mL 4 MG IVP (09:50)
[2019-11-24] MEDS: mupirocin oint 22 gm 1 APPLIC NASAL ×2 (09:50→17:08)
[2019-11-24 11:22] LABS: Glucose Point of Care 129 mg/dL (70-110)
[2019-11-24 14:34] LABS: Creatine Phosphokinase 143 U/L (26-192)
[2019-11-24] MEDS: hydrocortisone 100 mg/2 mL SDV IVP (16:32)
[2019-11-24] MEDS: bisacodyl 5 mg Tablet 10 MG PO (16:46)
--- NOTE | 2019-11-24 16:49 | PM.PN ---
Subjective Subjective: Interval history: Today she is generally weak, wakes up, follows commands, sluggish in responses, but answers appropriately. With profound weakness, difficulty swallowing food drink or medication. Medications: Reviewed: Yes Vitals/I&O/Wt Last Vital Signs Temp 98.2 F 11/24/19 12:00 Pulse 84 11/24/19 12:00 Resp 26 H 11/24/19 16:32 BP 139/65 11/24/19 12:00 Pulse Ox 93 11/24/19 16:32 11/24/19 11/24/19 11/24/19 06:59 14:59 22:59 Intake Total 0 / 0 50 / 50 Output Total 1050 / 3950 Balance -1050 / -3950 50 / 50 Weight last 48 hrs Weight 97.704 kg Weight 103.464 kg Physical Exam Const: COMMON NORMALS: no apparent distress OTHER: Weak HENMT: COMMON NORMALS: oropharynx normal Neck/C-Spine: COMMON NORMALS: no JVD OTHER: Right IJ CVC. Chest: OTHER: Mediastinal drains removed. Resp: COMMON NORMALS: normal respiratory effort OTHER: Clear to auscultation Cardio: COMMON NORMALS: no JVD, regular rhythm, S1 normal heart sound, S2 normal heart sound and no murmurs RHYTHM: regular rhythm HEART SOUNDS: S1 normal and S2 normal GI: COMMON NORMALS: normal to inspection, nondistended, normoactive bowel sounds, soft to palpation and non-tender PALPATION: Yes soft Extremity: COMMON NORMALS: no joint enlargement and no pedal edema NARRATIVE EXTREMITY EXAM: Left leg with mild swelling, no bruising or bleeding. Neuro: COMMON NORMALS: moves all extremities Skin: COMMON NORMALS: no rashes or lesions noted GENERAL SKIN EXAM: no rashes or lesions noted Urinary Catheter Management^: Mayorga Latex: Cath Placed During This Visit: no Data : 11/24/19 03:40 11/24/19 03:40 A&P Assessment and plan (1) NSTEMI (non-ST elevated myocardial infarction): With severe generalized weakness. Severe physical deconditioning. Difficulty with take anything by mouth. Awake, alert, generally answering appropriately, although with sluggish responses. Perhaps with postoperative/ICU related myopathy. CK was mildly elevated at 402 previously. Rechecked and normalized at 143. On review of external med history appears was on prednisone in October. Requesting additional information of them from the family they state it was given to her due to back pain, and she had taken for about 3 weeks, stopping it just a couple days before admission to the hospital, which makes me think that her profound weakness, fatigue, lethargy may be related to adrenal insufficiency. We will give her a dose of 100 mg hydrocortisone. Monitor for any need to repeat. Continue diuresis. N.p.o. for now. ST, OT, PT evaluations. Yesterday concern due to left side positioning of the head after weaning sedation, left side gaze preference, apparent neglect on sensory exam where she would nod yes to left side when the right side was touched. CT of the head was obtained, telemetry neurology was contacted at [place]. CT unremarkable. On examination by the neurologist she did better, without finding of focal neurologic abnormality, with earlier findings possibly secondary to incomplete weaning of sedation. Findings and work-up as well as discussion with neurology discussed with patient's daughter and granddaughter at bedside. No suspicion for a large CVA. Per discussion with Dr Nino anticoagulation should be safe from neurological standpoint. At some point carotid Doppler may be considered. She has been in atrial fibrillation. Started on therapeutic Lovenox which she has tolerated. With possible component of pulmonary hypertension contributing to hypoxia with PA pressure noted elevated on TTE. Of note TSH was low on presentation, and she takes levothyroxine and liothyronine. TSH and free T3 again low, suspected secondary to sick euthyroid syndrome currently. For now we will hold off on adjusting thyroid medications. Reassess again once she is out of acute condition. Fever resolved without evidence of infection, possibly related to left lower lobe atelectasis, versus related to antibiotic. No DVT of either lower extremity. Continue to monitor hemoglobin. Appears to have stabilized with hemolysis likely at least partially related to mechanical circulatory support, in part possibly secondary to antibiotic. Peripheral smear unremarkable apart from thrombocytopenia. PPI added prophylactically due to continued need for intubation, thrombocytopenia. Status: Acute Code(s): I21.4 - Non-ST elevation (NSTEMI) myocardial infarction (2) Metabolic acidosis: Anion gap and non-gap metabolic acidosis. With hyperchloremic acidosis which has improved. Lactic acid, serum ketones, both normal. Appears related to acute kidney injury. Status: Acute Code(s): E87.2 - Acidosis (3) Acute kidney injury superimposed on CKD: With improvement with diuresis, weaning off of nitroglycerin drip. Prerenal according to FEurea. On review of blood pressures had episodes of hypotension while in A. fib with RVR. These have resolved. Possible contribution of contrast nephropathy. Status: Acute Code(s): N17.9 - Acute kidney failure, unspecified; N18.9 - Chronic kidney disease, unspecified (4) Atrial fibrillation with RVR: Transitioned to oral amiodarone, continue metoprolol. In SR. Status: Acute Code(s): I48.91 - Unspecified atrial fibrillation (5) Accelerated essential hypertension: Blood pressure at goal. Status: Chronic Code(s): I10 - Essential (primary) hypertension (6) Hypothyroid: Status: Chronic Qualifiers: Hypothyroidism type: acquired Qualified Code(s): E03.9 - Hypothyroidism, unspecified Code(s): E03.9 - Hypothyroidism, unspecified Additional A&P Information She is not normally on oxygen at home. Attestations Medical Necessity Statement*: Continue admission for postoperative care after CABG, management of fluid overload, mobilization, speech therapy assessment in the setting of severe generalized weakness. Coding Level of Care Code Acute Drop Hammer Set Up Operator for Chg Fwd Diagnoses NSTEMI (non-ST elevated myocardial infarction) I21.4 Metabolic acidosis E87.2 Acute kidney injury superimposed on CKD N17.9; N18.9 Atrial fibrillation with RVR I48.91 Accelerated essential hypertension I10 Hypothyroid E03.9 Hypothyroidism type: acquired
[2019-11-24] MEDS: oxyCODONE-APAP 5-325 mg Tablet PO ×2 (16:58→20:10)
[2019-11-24 17:25] LABS: Glucose Point of Care 145 mg/dL (70-110)
--- NOTE | 2019-11-24 18:24 | PC.CHAP ---
Pastoral Care Encounter/Spiritual Assessment Type of Contact [] Declined showroom consultant visit [] Patient/Family/Request visit [] Outpatient visit [] Follow-up visit [] Physician referral [] Code/Alert [x] Routine visit [] Staff referral [] Actively dying [] Patient sleeping [x] Family support [] [] Out of room [] Palliative care [] [] Receiving care in room [] Pre-surgical visit [] Trauma [x] Long length of stay [x] ICU visit [] Other:Post surgical visit Relational/Emotional Strength [x] Patient feels connected with others/family/visitors/staff [] Distress [] Loneliness/isolation [] Abandonment Spirituality of Patient [x] Person of Kaylen [] Attends Caodaism of their Kaylen [x] Believes in Prayer [] Reads Bible or Latter-Day materials [] There are Spiritual issues to be addressed Cad Cam Programmer Interventions [x] Prayer [x] Active listening [x] Non-anxious presence [x] Spiritual/emotional support [] Crisis/trauma care [] Spiritual counseling [] Bereavement support [] Provided bereavement packet [] Provided Bible/devotional materials [] Provided toy/stuffed animal, coloring book to patient or family member [x] Completed spiritual assessment [] Provided Communion [] Anointing/[place] [] Salvation [] Other: Impact on Illness or Injury [] Angry [] Fearful [] Anxious [] Often cries [] Exhaustion [] Unable to work [] Unable to attend voodoo [] Unable to walk/stand [] Unable to read [] Unable to drive [] Unable to eat/drink [] Unable to sleep [] Unable to be with family [] Other: Summary Patient is recovering from open heart surgery. She expressed that she was in pain and requested that I pray with her. Patient visited by Cad Cam Programmer Cash Muniz Time spent with patient 10 minutes
--- NOTE | 2019-11-24 19:24 | P.PN_ITS ---
Subjective Subjective: Interval history: The events of the weekend were noted. Patient apparently had some respiratory difficulty. Finally she got extubated last night. Patient apparently had atrial fibrillation rapid ventricular rate. She was started on amiodarone. Currently she is in sinus rhythm. Patient also was found to have some speech impairment. She is getting speech therapy Medications: Reviewed: Yes Vitals/I&O/Wt Last Vital Signs Temp 98.2 F 11/24/19 12:00 Pulse 81 11/24/19 18:00 Resp 16 11/24/19 18:00 BP 148/78 11/24/19 18:00 Pulse Ox 93 11/24/19 18:00 11/24/19 11/24/19 11/24/19 06:59 14:59 22:59 Intake Total 0 / 0 50 / 50 250 / 300 Output Total 1050 / 3950 1700 / 1700 Balance -1050 / -3950 50 / 50 -1450 / -1400 Weight last 48 hrs Weight 215 lb 6.4 oz Weight 228 lb 1.6 oz Physical Exam Const: GENERAL APPEARANCE: comfortable (Appears to be sleepy), well developed, lethargic and well hydrated ORIENTATION/CONSCIOUSNESS: Yes lethargic HENMT: MOUTH: no other (ulcers or bleeding) TEETH & GINGIVA: no other (bleeding observed and inflammation present) Eye: COMMON NORMALS: conjunctivae normal CONJUNCTIVA: Yes conjunctivae normal SCLERA: sclerae normal DIRECT OPHTHALMOSCOPY: Yes other (The fundus is not visualized) Neck/C-Spine: COMMON NORMALS: thyroid normal THYROID: thyroid normal CAROTIDS: Yes normal carotid upstroke (and runoff) Chest: CHEST: Yes abnormal inspection of the chest (Sternotomy site appears to be healing well. No evidence of any bleeding or infection.) Resp: COMMON NORMALS: clear to auscultation bilaterally EFFORT & INSPECTION: Yes symmetric chest movement and No uses accessory muscles AUSCU LTATION: clear to auscultation bilaterally, no crackles and no wheezes Cardio: COMMON NORMALS: regular rate, regular rhythm, S1 normal heart sound, S2 normal heart sound, no gallops, no clicks, no murmurs and no rub JUGULAR VENOUS DISTENTION: JVD present PALPATION: no heave, no palpable S3 and no thrill RATE: regular rate RHYTHM: regular rhythm HEART SOUNDS: S1 normal, S2 normal, no click, no murmurs and no rubs BRUITS: no abdominal aortic bruits PERIPHERAL PULSES: femoral pulses present positive bilateral (Normal), posterior tibial pulses present (Weak) positive bilateral (Normal) and dorsalis pedis pulses present (Weak) positive bilateral (Normal) GI: AUSCULTATION: Yes normoactive bowel sounds and No abdominal bruit PALPATION: No tender, No hepatomegaly, No splenomegaly and No mass Back/Pelvis: GENERAL BACK: No swelling and No other (joint deformities) Extremity: COMMON NORMALS: negative for no clubbing, cyanosis or edema and negative for no pedal edema GENERAL: No cyanosis Neuro: COMMON NORMALS: moves all extremities SENSORIUM/ORIENTATION: Yes lethargic and Yes other (Speech is slow) MOTOR EXAM: No tremor Psych: MOOD & AFFECT: Yes other (Normal mood and affect) Skin: COMMON NORMALS: skin turgor normal; negative for no petechiae GENERAL SKIN EXAM: turgor normal, skin not dry and no erythema RASHES: rash noted NAILS: normal, no clubbing, not discolored and no other (cyanosis) Urinary Catheter Management^: Mayorga Latex: Cath Placed During This Visit: no Data : 11/24/19 03:40 11/24/19 03:40 A&P Assessment and plan (1) Status post aorto-coronary artery bypass graft: Patient apparently had some fluid overload and is responding to diuresis. Currently the vital signs are stable. Her chest tubes are out. Status: Acute Code(s): Z95.1 - Presence of aortocoronary bypass graft (2) NSTEMI (non-ST elevated myocardial infarction): Status post coronary bypass surgery group. I may start her on Plavix 150 mg p.o. today. May give another 150 mg in the morning followed by 75 mg p.o. daily Status: Acute Code(s): I21.4 - Non-ST elevation (NSTEMI) myocardial infarction (3) Chronic kidney disease: Kidney function is stable. Continue on the current management. Status: Acute Qualifiers: Chronic kidney disease stage: stage 2 (mild) Qualified Code(s): N18.2 - Chronic kidney disease, stage 2 (mild) Code(s): N18.9 - Chronic kidney disease, unspecified (4) Atrial fibrillation with RVR: Currently the patient is in sinus rhythm. She is on amiodarone. May continue the medication. Status: Acute Code(s): I48.91 - Unspecified atrial fibrillation Additional A&P Information I also may start the patient on Lipitor, if the liver function is back to normal. We will do a CMP in the morning Attestations Medical Necessity Statement*: Patient requires continued hospital stay for close monitoring and further management Coding Level of Care Code Acute Hedis Coordinator for Chg Fwd Diagnoses Status post aorto-coronary artery bypass graft Z95.1 NSTEMI (non-ST elevated myocardial infarction) I21.4 Chronic kidney disease N18.2 Chronic kidney disease stage: stage 2 (mild) Atrial fibrillation with RVR I48.91
[2019-11-24] MEDS: clopidogrel 75 mg Tablet 150 MG PO (20:11)
[2019-11-24] MEDS: atorvastatin 40 mg Tablet 20 MG PO (20:11)
[2019-11-25] VITALS (47 sets, daily range): BP systolic 114–179; BP diastolic 61–99; PULSE 74–97; RESP 10–21; TEMP 36.3–36.9; O2SAT 87–97; BMI 35.0
[2019-11-25] MEDS: morphine 4 mg/mL SDV 1 mL 2 MG IVP ×3 (02:13→10:54)
[2019-11-25 04:28] LABS: Basophils % 0.3 %; Eosinophils % 0.1 %; Hematocrit 28.1 % (37.0-47.0); Hemoglobin 8.7 g/dL (11.5-15.3); Lymphocytes # 0.7 10^3/uL (0.8-4.8); Lymphocytes % 9.6 %; Mean Corpuscular Hemoglobin 29.5 pg (28.0-34.0); Mean Corpuscular Volume 95.3 fL (81-99); Mean Platelet Volume 11.8 fL (7.4-10.4); Monocytes # 0.5 10^3/uL (0.2-0.9); Neutrophils # 5.6 10^3/uL (1.8-7.7); Nucleated Red Blood Cells % 0 %; Platelet Count 189 10^3/cmm (130-400); Red Blood Count 2.95 10^6/uL (4.1-5.3); Red Cell Distribution Width 13.8 % (12.1-15.1); White Blood Count 6.9 10^3/uL (4.0-10.0)
[2019-11-25 04:43] LABS: Alanine Aminotransferase 31 U/L (0-33); Albumin Level 2.7 g/dL (3.5-5.2); Alkaline Phosphatase 131 IU/L (35-105); Anion Gap 13.6 (5-19); Aspartate Amino Transferase 24 U/L (0-32); Blood Urea Nitrogen 36 mg/dL (8-23); Carbon Dioxide 31 mmol/L (22-29); Chloride 105 mmol/L (98-107); Globulin 3.4 g/dL (1.3-4.6); Glucose 122 mg/dL (74-106); Potassium 3.6 mmol/L (3.5-5.1); Sodium 146 mmol/L (136-145); Total Bilirubin 0.4 mg/dL (0.15-1.2); Total Protein 6.1 g/dL (6.6-8.7)
[2019-11-25] MEDS: potassium chloride premix 40 MEQ/100 ML PREMIX 33.3 MEQ IV (06:02)
--- NOTE | 2019-11-25 06:39 | PM.PN ---
Subjective Subjective: Interval history: Postop day #[address] scan yesterday was negative. Apparently, tele-neurology has seen the patient, though I cannot find the note. Verbal report given to me was that she was cleared. She remains neurologically intact though is overall fairly weak. She is remained in sinus rhythm. Continue to diurese about another 2 L. I think she probably is pretty close to being euvolemic. BUN and creatinine have normalized. She is modestly anemic, though overall stable. Vitals/I&O/Wt Last Vital Signs Temp 98.5 F 11/25/19 02:00 Pulse 90 11/25/19 06:00 Resp 19 H 11/25/19 06:00 BP 173/78 11/25/19 06:00 Pulse Ox 93 11/25/19 06:00 11/24/19 11/24/19 11/25/19 14:59 22:59 06:59 Intake Total 50 / 50 450 / 500 300 / 800 Output Total 2100 / 2100 1075 / 3175 Balance 50 / 50 -1650 / -1600 -775 / -2375 Weight last 48 hrs Weight 217 lb Weight 215 lb 6.4 oz Physical Exam Chest: COMMONS NORMALS: inspection of chest normal (Wound VAC dressing remains in place. I will remove later today or tomorrow) Resp: COMMON NORMALS: negative for normal respiratory effort EFFORT & INSPECTION: Yes decreased respiratory effort AUSCULTATION: diminished lung sounds bilateral (Bases) Extremity: NARRATIVE EXTREMITY EXAM: Peripheral edema much improved. Urinary Catheter Management^: Mayorga Latex: Cath Placed During This Visit: no Data : 11/25/19 04:06 11/25/19 04:06 A&P Assessment and plan (1) Status post aorto-coronary artery bypass graft: Postop day #6 that is post CABG Slow improvement, will probably take a while, though she does appear to be advancing. Will remove wound VAC dressing later today or tomorrow. Greatly appreciate oversight's and expertise of our cardiology and hospitalist colleagues. Status: Acute Code(s): Z95.1 - Presence of aortocoronary bypass graft Attestations Medical Necessity Statement*: Status post CABG Time Spent in Patient Care: less than 15 minutes Coding Level of Care Code Acute Sba Underwriter for Hillary Lambert Diagnoses Status post aorto-coronary artery bypass graft Z95.1
[2019-11-25 07:09] LABS: Glucose Point of Care 117 mg/dL (70-110)
[2019-11-25 07:21] LABS: Glucose Point of Care 147 mg/dL (70-110)
[2019-11-25] MEDS: enoxaparin 100 mg/mL Syringe 95 MG SUBCUT ×2 (07:44→21:06)
[2019-11-25] MEDS: oxyCODONE-APAP 5-325 mg Tablet PO ×3 (07:49→21:05)
[2019-11-25] MEDS: metoprolol tartrate 1 mg/1 mL SDV 5 mL 10 MG IV (08:05)
[2019-11-25] MEDS: mupirocin oint 22 gm 1 APPLIC NASAL (08:05)
[2019-11-25] MEDS: aspirin 325 mg EC Tablet PO (08:09)
[2019-11-25] MEDS: pantoprazole 40 mg SDV IVP (08:09)
[2019-11-25] MEDS: FUROsemide 10 mg/mL SDV 4mL 40 MG IVP ×2 (08:09→17:46)
[2019-11-25] MEDS: neomycin-poly-bacitracin oint 0.9 gm Pkt 1 APPLIC TOPICAL ×2 (08:09→17:46)
--- NOTE | 2019-11-25 08:56 | DCPLANNER ---
Pg 2 of IM updated and reviewed with pt. No questions, copy provided.
[2019-11-25] MEDS: ondansetron 2 mg/ML SDV 2 mL 4 MG IVP (09:49)
[2019-11-25 11:04] LABS: Glucose Point of Care 139 mg/dL (70-110)
[2019-11-25] MEDS: bisacodyl 10 mg Supp PR (13:26)
[2019-11-25] MEDS: metoclopramide 5 mg/mL SDV 2 mL IVP (13:26)
--- NOTE | 2019-11-25 13:26 | PC.CHAP ---
Had lprayer with patient and two members of family Pastoral Care Encounter/Spiritual Assessment Type of Contact [] Declined manager risk visit [] Patient/Family/Request visit [] Outpatient visit [] Follow-up visit [] Physician referral [] Code/Alert [x] Routine visit [] Staff referral [] Actively dying [] Patient sleeping [] Family support [] [] Out of room [] Palliative care [] [] Receiving care in room [] Pre-surgical visit [] Trauma [] Long length of stay [] ICU visit [] Other: Relational/Emotional Strength [x] Patient feels connected with others/family/visitors/staff [] Distress [] Loneliness/isolation [] Abandonment Spirituality of Patient [x] Person of Kaylen [] Attends Jainism of their Kaylen [x] Believes in Prayer [] Reads Bible or Mandaeism materials [] There are Spiritual issues to be addressed Bending Machine Operator Interventions [x] Prayer [x] Active listening x] Non-anxious presence [x] Spiritual/emotional support [] Crisis/trauma care [] Spiritual counseling [] Bereavement support [] Provided bereavement packet [] Provided Bible/devotional materials [] Provided toy/stuffed animal, coloring book to patient or family member [] Completed spiritual assessment [] Provided Communion [x] Anointing/[place] [] Salvation [] Other: Impact on Illness or Injury [] Angry [] Fearful [] Anxious [] Often cries [x] Exhaustion [] Unable to work [] Unable to attend latter day [] Unable to walk/stand [] Unable to read [] Unable to drive [] Unable to eat/drink [] Unable to sleep [] Unable to be with family [] Other: Summary Patient has had surgery. Very tired but looking for healing Time spent with patient 5 minutes
[2019-11-25] MEDS: predniSONE 20 mg Tablet PO (14:57)
[2019-11-25 17:22] LABS: Glucose Point of Care 127 mg/dL (70-110)
[2019-11-25] MEDS: metoprolol tartrate 25 mg Tablet PO (17:46)
[2019-11-25] MEDS: polyethylene glycol 3350 Pkt 17 gm PO (17:46)
[2019-11-25] MEDS: amiodarone 200 mg Tablet 400 MG PO (17:46)
--- NOTE | 2019-11-25 19:03 | P.PN_ITS ---
Subjective Subjective: Interval history: Patient seems to be a little more alert and active today. Denies any new complaints. Medications: Reviewed: Yes Vitals/I&O/Wt Last Vital Signs Temp 97.9 F 11/25/19 16:00 Pulse 94 11/25/19 17:30 Resp 19 H 11/25/19 17:30 BP 179/76 11/25/19 17:30 Pulse Ox 87 L 11/25/19 17:30 11/25/19 11/25/19 11/25/19 06:59 14:59 22:59 Intake Total 300 / 800 480 / 480 250 / 730 Output Total 1075 / 3175 600 / 600 Balance -775 / -2375 -120 / -120 250 / 130 Weight last 48 hrs Weight 217 lb Weight 215 lb 6.4 oz Physical Exam Const: COMMON NORMALS: alert and well nourished GENERAL APPEARANCE: comfortable (Appears to be sleepy), well developed, lethargic and well hydrated ORIENTATION/CONSCIOUSNESS: Yes lethargic HENMT: MOUTH: no other (ulcers or bleeding) TEETH & GINGIVA: no other (bleeding observed and inflammation present) Eye: SCLERA: sclerae normal DIRECT OPHTHALMOSCOPY: Yes other (The fundus is not visualized) Neck/C-Spine: COMMON NORMALS: no JVD and thyroid normal THYROID: thyroid normal CAROTIDS: Yes normal carotid upstroke (and runoff) Chest: COMMONS NORMALS: inspection of chest normal CHEST: Yes abnormal inspection of the chest (Sternotomy site appears to be healing well. No evidence of any bleeding or infection.) Resp: COMMON NORMALS: clear to auscultation bilaterally EFFORT & INSPECTION: Yes symmetric chest movement and No uses accessory muscles AUSCULTATION: clear to auscultation bilaterally, no crackles and no wheezes Cardio: COMMON NORMALS: no JVD JUGULAR VENOUS DISTENTION: JVD present PALPATION: no heave, no palpable S3 and no thrill HEART SOUNDS: no click, no murmurs and no rubs BRUITS: no abdominal aortic bruits PERIPHERAL PULSES: femoral pulses present positive bilateral (Normal) GI: AUSCULTATION: Yes normoactive bowel sounds and No abdominal bruit PALPATION: No tender, No hepatomegaly, No splenomegaly and No mass Back/Pelvis: GENERAL BACK: No swelling and No other (joint deformities) THORACIC SPINE/UPPER BACK: No kyphosis present LUMBAR SPINE/LOWER BACK: No lumbar scoliosis present Extremity: COMMON NORMALS: negative for no clubbing, cyanosis or edema GENERAL: No cyanosis OTHER: 1+ edema bilaterally Neuro: COMMON NORMALS: moves all extremities SENSORIUM/ORIENTATION: Yes alert, Yes lethargic and Yes other (Speech is slow) MOTOR EXAM: No tremor Psych: MOOD & AFFECT: Yes other (Normal mood and affect) Skin: COMMON NORMALS: skin turgor normal; negative for no petechiae GENERAL SKIN EXAM: turgor normal, skin not dry and no erythema RASHES: rash noted NAILS: normal, no clubbing, not discolored and no other (cyanosis) Urinary Catheter Management^: Mayorga Latex: Cath Placed During This Visit: no Data : 11/25/19 04:06 11/25/19 04:06 Micro: Microbiology 11/20/19 10:08 Blood Culture - Final Blood NO GROWTH AFTER 5 DAYS 11/20/19 09:01 Blood Culture - Final Blood NO GROWTH AFTER 5 DAYS A&P Assessment and plan (1) Status post aorto-coronary artery bypass graft: Status post two-vessel coronary bypass surgery. Clinically seems to be stable. Status: Acute Code(s): Z95.1 - Presence of aortocoronary bypass graft (2) NSTEMI (non-ST elevated myocardial infarction): No recurrence of chest pain. Tolerated the Plavix so far well. Also may start on a low-dose of Crestor 5 mg p.o. daily. Will watch the liver function Status: Acute Code(s): I21.4 - Non-ST elevation (NSTEMI) myocardial infarction (3) Atrial fibrillation with RVR: Patient continues to be in sinus rhythm. Continue with the beta-radha to reduce dose of 25 mg p.o. twice daily. May continue with amiodarone. Status: Acute Code(s): I48.91 - Unspecified atrial fibrillation (4) Chronic kidney disease: Kidney function appears to be stable. Status: Acute Qualifiers: Chronic kidney disease stage: stage 2 (mild) Qualified Code(s): N18.2 - Chronic kidney disease, stage 2 (mild) Code(s): N18.9 - Chronic kidney disease, unspecified (5) Accelerated essential hypertension: Currently normotensive. Continue on the current medications. Status: Chronic Code(s): I10 - Essential (primary) hypertension Attestations Medical Necessity Statement*: Patient requires continued hospital stay for close monitoring and further management Coding Level of Care Code Acute Naval Aircrew[employer] Avionics for Chg Fwd Diagnoses Status post aorto-coronary artery bypass graft Z95.1 NSTEMI (non-ST elevated myocardial infarction) I21.4 Atrial fibrillation with RVR I48.91 Chronic kidney disease N18.2 Chronic kidney disease stage: stage 2 (mild) Accelerated essential hypertension I10
--- NOTE | 2019-11-25 20:22 | PM.PN ---
Subjective Subjective: Interval history: This morning she is stronger, sitting up in chair, better able to move extremities, speak. Voice is stronger, and she is able to express that she cannot see well. This appears to be new since the surgery. She is still somewhat sluggish in her responses, but confirms (also confirmed by her family) that she was able to read newspaper print prior to this. She denies significant pain, or chest discomfort. Breathing is comfortable. Does report some abdominal discomfort. Still has not had a bowel movement. Vitals/I&O/Wt Last Vital Signs Temp 97.9 F 11/25/19 16:00 Pulse 76 11/25/19 19:00 Resp 14 11/25/19 19:00 BP 153/80 11/25/19 19:00 Pulse Ox 93 11/25/19 19:00 11/25/19 11/25/19 11/25/19 06:59 14:59 22:59 Intake Total 300 / 800 480 / 480 250 / 730 Output Total 1075 / 3175 600 / 600 Balance -775 / -2375 -120 / -120 250 / 130 Weight last 48 hrs Weight 98.43 kg Weight 97.704 kg Physical Exam Const: COMMON NORMALS: no apparent distress OTHER: Significantly stronger today, although generally still weak. Sitting up in chair. Able to express herself better. Voice is louder. HENMT: COMMON NORMALS: oropharynx normal Neck/C-Spine: COMMON NORMALS: no JVD OTHER: Right IJ CVC. Chest: OTHER: Mediastinal wound without dehiscence. Resp: COMMON NORMALS: normal respiratory effort OTHER: Clear to auscultation Cardio: COMMON NORMALS: no JVD, regular rhythm, S1 normal heart sound, S2 normal heart sound and no murmurs RHYTHM: regular rhythm HEART SOUNDS: S1 normal and S2 normal GI: COMMON NORMALS: normal to inspection, nondistended, normoactive bowel sounds, soft to palpation and non-tender PALPATION: Yes soft Extremity: COMMON NORMALS: no joint enlargement and no pedal edema NARRATIVE EXTREMITY EXAM: Left leg with mild swelling, no bruising or bleeding. Neuro: COMMON NORMALS: moves all extremities Skin: COMMON NORMALS: no rashes or lesions noted GENERAL SKIN EXAM: no rashes or lesions noted Data : 11/25/19 04:06 11/25/19 04:06 Micro: Microbiology 11/20/19 10:08 Blood Culture - Final Blood NO GROWTH AFTER 5 DAYS 11/20/19 09:01 Blood Culture - Final Blood NO GROWTH AFTER 5 DAYS A&P Assessment and plan (1) Decreased visual acuity: Today is able to express that she cannot see well. Appears this is new finding since the surgery. Reports before that was able to read newspaper print. Currently having some trouble counting fingers at several feet. Denies any eye pain. Denies any photosensitivity. There is no erythema. Discussed with her and her daughter who is at bedside there was concern for possible CVA, and it is difficult to rule out that she did not have occipital lobe involvement, although visual corbett appear to be symmetrical on examination, although narrowed, and mostly with decline in visual acuity bilaterally. Discussed that she may benefit from additional assessment by MRI of the brain once she is stronger and is better able to follow commands and lie still. On additional discussion she is noted to have had some symptoms of posterior lateral headache, and reports sometimes recurrent tenderness on the temporal regions. Obtaining history is somewhat difficult, as she sometimes mildly perseverates on some of the symptoms, and is sluggish with responses, so when confirming answers to questions sometimes difficult to say whether she is confirming the question, or her own previous statement. However, she does appear to confirm history of jaw claudication, when asked if she needed to take breaks when eating, states yes, although then states my teeth have been hurting . On temporal palpation currently I do not palpate vasculature/cord, however, she does report tenderness on palpation. Her ESR and CRP are somewhat elevated. Due to possibility of GCA responsible for her symptoms discussed with ophthalmology who have kindly agreed to evaluate her while she is in the hospital. I have requested slit-lamp be brought in from emergency room for this purpose. Per discussion she is currently continued on lower dose steroid with 20 mg prednisone daily since her preadmission steroid use would have diminished/eliminated possibility of confirmatory biopsy at this time. Status: Acute Code(s): H54.7 - Unspecified visual loss (2) NSTEMI (non-ST elevated myocardial infarction): Today she is stronger. Received 1 dose of hydrocortisone 100 mg yesterday due to concern for underlying adrenal insufficiency. Today she is able to express herself, speaking more appropriately, giving a review of systems. She states that she cannot see well. She has been diuresing well, with improvement of renal function. Continue to wean off oxygen. Clear liquid diet, ST, OT, PT. Still has not had a bowel movement, today have advanced her bowel regimen, tried enema, although without significant success. May need to repeat again tomorrow. Mobilize as tolerating. For now continues on low-dose prednisone given concern for possible adrenal insufficiency, possible GCA. Reduce dose depending on clinical condition with concern for surgical wound healing. Postoperatively he was assessed by tele-neurology for concern for possible CVA, although initially seen focal abnormalities have resolved. Please see neurologist note in paper chart. She has been in atrial fibrillation. Started on therapeutic Lovenox which she has tolerated. With possible component of pulmonary hypertension contributing to hypoxia with PA pressure noted elevated on TTE. Of note TSH was low on presentation, and she takes levothyroxine 100 mcg and not liothyronine. TSH and free T3 again low, suspected secondary to sick euthyroid syndrome currently. For now we will hold off on adjusting thyroid medications. Reassess again once she is out of acute condition. Fever resolved without evidence of infection, possibly related to left lower lobe atelectasis, versus related to antibiotic, versus possible adrenal insufficiency, or possibly vasculitis. No DVT of either lower extremity. Continue to monitor hemoglobin. Appears to have stabilized with hemolysis likely at least partially related to mechanical circulatory support, in part possibly secondary to antibiotic. Peripheral smear unremarkable apart from thrombocytopenia. PPI was added prophylactically due to continued need for intubation, thrombocytopenia, now steroid. Status: Acute Code(s): I21.4 - Non-ST elevation (NSTEMI) myocardial infarction (3) Metabolic acidosis: Resolved. Status: Acute Code(s): E87.2 - Acidosis (4) Acute kidney injury superimposed on CKD: Resolving. With improvement with diuresis, weaning off of nitroglycerin drip. Prerenal according to FEurea. On review of blood pressures had episodes of hypotension while in A. fib with RVR. These have resolved. Possible contribution of contrast nephropathy. Status: Acute Code(s): N17.9 - Acute kidney failure, unspecified; N18.9 - Chronic kidney disease, unspecified (5) Atrial fibrillation with RVR: Transitioned to oral amiodarone, continue metoprolol. In SR. Status: Acute Code(s): I48.91 - Unspecified atrial fibrillation (6) Accelerated essential hypertension: Blood pressure at goal. Status: Chronic Code(s): I10 - Essential (primary) hypertension (7) Hypothyroid: Status: Chronic Qualifiers: Hypothyroidism type: acquired Qualified Code(s): E03.9 - Hypothyroidism, unspecified Code(s): E03.9 - Hypothyroidism, unspecified Additional A&P Information She is not normally on oxygen at home. Attestations Medical Necessity Statement*: Continue for post operative management after CABG. Assessment of visual acuity loss. Coding Level of Care Code Acute Supervisor Fleshing for Chg Fwd Diagnoses Decreased visual acuity H54.7 NSTEMI (non-ST elevated myocardial infarction) I21.4 Metabolic acidosis E87.2 Acute kidney injury superimposed on CKD N17.9; N18.9 Atrial fibrillation with RVR I48.91 Accelerated essential hypertension I10 Hypothyroid E03.9 Hypothyroidism type: acquired
[2019-11-25] MEDS: atorvastatin 40 mg Tablet 20 MG PO (21:04)
[2019-11-25] MEDS: labetalol 5 mg/mL SDV 20mL IVP (21:07)
[2019-11-25 21:23] LABS: Glucose Point of Care 145 mg/dL (70-110)
[2019-11-26] VITALS (37 sets, daily range): BP systolic 103–183; BP diastolic 58–108; PULSE 64–92; RESP 13–26; TEMP 36.6–36.9; O2SAT 90–96
[2019-11-26] MEDS: oxyCODONE-APAP 5-325 mg Tablet PO (04:39)
[2019-11-26 05:43] LABS: Basophils % 0.4 %; Eosinophils % 0.1 %; Hematocrit 33.9 % (37.0-47.0); Hemoglobin 10.6 g/dL (11.5-15.3); Lymphocytes # 0.9 10^3/uL (0.8-4.8); Lymphocytes % 11.4 %; Mean Corpuscular HGB Conc 31.3 g/dL (30.0-36.0); Mean Corpuscular Hemoglobin 30.2 pg (28.0-34.0); Mean Corpuscular Volume 96.6 fL (81-99); Mean Platelet Volume 12.5 fL (7.4-10.4); Monocytes # 0.6 10^3/uL (0.2-0.9); Monocytes % 7.5 %; Neutrophils # 5.9 10^3/uL (1.8-7.7); Nucleated Red Blood Cells % 0.3 %; Platelet Count 206 10^3/cmm (130-400); Red Blood Count 3.51 10^6/uL (4.1-5.3); Red Cell Distribution Width 13.5 % (12.1-15.1); White Blood Count 7.5 10^3/uL (4.0-10.0)
[2019-11-26 06:01] LABS: Alanine Aminotransferase 30 U/L (0-33); Albumin Level 2.9 g/dL (3.5-5.2); Alkaline Phosphatase 148 IU/L (35-105); Anion Gap 14.8 (5-19); Aspartate Amino Transferase 24 U/L (0-32); Blood Urea Nitrogen 33 mg/dL (8-23); Calcium 9.3 mg/Dl (8.8-10.2); Carbon Dioxide 32 mmol/L (22-29); Chloride 98 mmol/L (98-107); Globulin 3.8 g/dL (1.3-4.6); Glucose 109 mg/dL (74-106); Potassium 3.8 mmol/L (3.5-5.1); Sodium 141 mmol/L (136-145); Total Bilirubin 0.5 mg/dL (0.15-1.2); Total Protein 6.7 g/dL (6.6-8.7)
--- NOTE | 2019-11-26 07:09 | P.PN_ITS ---
Subjective Subjective: Interval history: Postop day #7 status post CABG. Much more engaging this morning. Conversing quite freely with me and nursing staff. Wound VAC dressing was removed. Sternotomy incision is intact. Drain sites well approximated. Wounds were cleansed and redressed. It would be important for her to wear her bra continuously except during skin care so as to try to prevent traction along the skin closure. Renal function has normalized. Vitals/I&O/Wt Last Vital Signs Temp 98.0 F 11/26/19 04:00 Pulse 86 11/26/19 06:00 Resp 18 11/26/19 06:00 BP 153/84 11/26/19 06:38 Pulse Ox 93 11/26/19 06:00 11/25/19 11/26/19 11/26/19 22:59 06:59 14:59 Intake Total 350 / 830 200 / 1030 Output Total 1725 / 2325 Balance 350 / 230 -1525 / -1295 Weight last 48 hrs Weight 210 lb Weight 217 lb Physical Exam Chest: COMMONS NORMALS: inspection of chest normal (Sternotomy incision intact. Drain sites well approximated. Wound VAC dressing removed.) Resp: OTHER: Improved respiratory effort. Improved breath sounds bilaterally. Extremity: OTHER: Peripheral edema is almost completely resolved. Urinary Catheter Management^: Mayorga Latex: Cath Placed During This Visit: no Data : 11/26/19 04:54 11/26/19 04:54 Micro: Microbiology 11/20/19 10:08 Blood Culture - Final Blood NO GROWTH AFTER 5 DAYS 11/20/19 09:01 Blood Culture - Final Blood NO GROWTH AFTER 5 DAYS A&P Assessment and plan (1) Status post aorto-coronary artery bypass graft: Postop day #7 status post CABG. Status: Acute Code(s): Z95.1 - Presence of aortocoronary bypass graft Attestations Medical Necessity Statement*: Status post CABG Greatly appreciate expertise of our cardiology and hospitalist colleagues. Her initial progression from surgery was slow, though she is improving more rapidly now. She will clearly need skilled care after discharge due to generalized deconditioning Time Spent in Patient Care: 16 - 35 minutes Coding Level of Care Code Acute Wreath Machine Operator for Hillary Lambert Diagnoses Status post aorto-coronary artery bypass graft Z95.1
[2019-11-26] MEDS: enoxaparin 100 mg/mL Syringe 95 MG SUBCUT ×2 (07:30→21:22)
[2019-11-26] MEDS: labetalol 5 mg/mL SDV 20mL IVP ×2 (07:31→07:55)
[2019-11-26] MEDS: HYDROcodone-acetaminophen 5-325 mg Tablet 1 TAB PO ×3 (08:15→21:22)
[2019-11-26] MEDS: ondansetron 2 mg/ML SDV 2 mL 4 MG IVP (08:50)
[2019-11-26 09:01] LABS: Glucose Point of Care 107 mg/dL (70-110)
[2019-11-26] MEDS: metoprolol tartrate 25 mg Tablet PO ×2 (09:29→17:57)
[2019-11-26] MEDS: amiodarone 200 mg Tablet 400 MG PO ×2 (09:29→17:56)
[2019-11-26] MEDS: pantoprazole 40 mg SDV IVP (09:29)
[2019-11-26] MEDS: predniSONE 20 mg Tablet PO (09:29)
[2019-11-26] MEDS: aspirin 325 mg EC Tablet PO (09:29)
[2019-11-26] MEDS: FUROsemide 10 mg/mL SDV 4mL 40 MG IVP ×2 (09:30→17:57)
[2019-11-26] MEDS: neomycin-poly-bacitracin oint 0.9 gm Pkt 1 APPLIC TOPICAL ×2 (10:55→17:57)
--- NOTE | 2019-11-26 11:12 | P.PN_ITS ---
Subjective Subjective: Interval history: Postop day #8 status post CABG. urine output 2.3L. hemodynamicaly stable. Afebrile. Reportedly had some dizziness while working with PT today. Reports a history of vertigo at home for which she takes meclizine. Blood pressure this morning was ranging around 220s systolic. Awaiting ophthalmology evaluation. Medications: Reviewed: Yes Vitals/I&O/Wt Last Vital Signs Temp 98 F 11/26/19 08:00 Pulse 78 11/26/19 10:45 Resp 15 11/26/19 10:45 BP 117/63 11/26/19 10:45 Pulse Ox 96 11/26/19 10:45 11/25/19 11/26/19 11/26/19 22:59 06:59 14:59 Intake Total 350 / 830 200 / 1030 200 / 200 Output Total 1725 / 2325 Balance 350 / 230 -1525 / -1295 200 / 200 Weight last 48 hrs Weight 95.254 kg Weight 98.43 kg Physical Exam Urinary Catheter Management^: Mayorga Latex: Cath Placed During This Visit: no Data : 11/26/19 04:54 11/26/19 04:54 Micro: Microbiology 11/20/19 10:08 Blood Culture - Final Blood NO GROWTH AFTER 5 DAYS 11/20/19 09:01 Blood Culture - Final Blood NO GROWTH AFTER 5 DAYS A&P Assessment and plan (1) Decreased visual acuity: Today is able to express that she cannot see well. Appears this is new finding since the surgery. Reports before that was able to read newspaper print. Currently having some trouble counting fingers at several feet. Denies any eye pain. Denies any photosensitivity. There is no erythema. Discussed with her and her daughter who is at bedside there was concern for possible CVA, and it is difficult to rule out that she did not have occipital lobe involvement, although visual corbett appear to be symmetrical on examination, although narrowed, and mostly with decline in visual acuity bilaterally. Discussed that she may benefit from additional assessment by MRI of the brain once she is stronger and is better able to follow commands and lie still. On additional discussion she is noted to have had some symptoms of posterior lateral headache, and reports sometimes recurrent tenderness on the temporal re gions. Obtaining history is somewhat difficult, as she sometimes mildly perseverates on some of the symptoms, and is sluggish with responses, so when confirming answers to questions sometimes difficult to say whether she is confirming the question, or her own previous statement. However, she does appear to confirm history of jaw claudication, when asked if she needed to take breaks when eating, states yes, although then states my teeth have been hurting . On temporal palpation currently I do not palpate vasculature/cord, however, she does report tenderness on palpation. Her ESR and CRP are somewhat elevated. Due to possibility of GCA responsible for her symptoms discussed with ophthalmology who have kindly agreed to evaluate her while she is in the hospital. I have requested slit-lamp be brought in from emergency room for this purpose. Per discussion she is currently continued on lower dose steroid with 20 mg prednisone daily since her preadmission steroid use would have diminishe d/eliminated possibility of confirmatory biopsy at this time. Status: Acute Code(s): H54.7 - Unspecified visual loss (2) NSTEMI (non-ST elevated myocardial infarction): Today she is stronger. Received 1 dose of hydrocortisone 100 mg yesterday due to concern for underlying adrenal insufficiency. Today she is able to express herself, speaking more appropriately, giving a review of systems. She states that she cannot see well. She has been diuresing well, with improvement of renal function. Continue to wean off oxygen. Clear liquid diet, ST, OT, PT. Still has not had a bowel movement, today have advanced her bowel regimen, tried enema, although without significant success. May need to repeat again tomorrow. Mobilize as tolerating. For now continues on low-dose prednisone given concern for possible adrenal insufficiency, possible GCA. Reduce dose depending on clinical condition with concern for surgical wound healing. Postoperatively he was assessed by tele-neurology for concern for possible CVA, although initially seen focal abnormalities have resolved. Please see neurologist note in paper chart. She has been in atrial fibrillation. Started on therapeutic Lovenox which she has tolerated. With possible component of pulmonary hypertension contributing to hypoxia with PA pressure noted elevated on TTE. Of note TSH was low on presentation, and she takes levothyroxine 100 mcg and not liothyronine. TSH and free T3 again low, suspected secondary to sick euthyroid syndrome currently. For now we will hold off on adjusting thyroid medications. Reassess again once she is out of acute condition. Fever resolved without evidence of infection, possibly related to left lower lobe atelectasis, versus related to antibiotic, versus possible adrenal in sufficiency, or possibly vasculitis. No DVT of either lower extremity. Continue to monitor hemoglobin. Appears to have stabilized with hemolysis likely at least partially related to mechanical circulatory support, in part possibly secondary to antibiotic. Peripheral smear unremarkable apart from thrombocytopenia. PPI was added prophylactically due to continued need for intubation, thrombocytopenia, now steroid. Status: Acute Code(s): I21.4 - Non-ST elevation (NSTEMI) myocardial infarction (3) Metabolic acidosis: Resolved. Status: Acute Code(s): E87.2 - Acidosis (4) Acute kidney injury superimposed on CKD: Resolving. With improvement with diuresis, weaning off of nitroglycerin drip. Prerenal according to FEurea. On review of blood pressures had episodes of hypotension while in A. fib with RVR. These have resolved. Possible contribution of contrast nephropathy. Status: Acute Code(s): N17.9 - Acute kidney failure, unspecified; N18.9 - Chronic kidney disease, unspecified (5) Atrial fibrillation with RVR: Transitioned to oral amiodarone, continue metoprolol. In SR. Status: Acute Code(s): I48.91 - Unspecified atrial fibrillation (6) Accelerated essential hypertension: Blood pressure at goal. Status: Chronic Code(s): I10 - Essential (primary) hypertension (7) Hypothyroid: Status: Chronic Qualifiers: Hypothyroidism type: acquired Qualified Code(s): E03.9 - Hypothyroidism, unspecified Code(s): E03.9 - Hypothyroidism, unspecified Additional A&P Information She is not normally on oxygen at home. Attestations Medical Necessity Statement*: pending ophthalmology evalaution, dispo planning Coding Level of Care Code Acute Medical Device Sales Consultant for Chg Fwd Diagnoses Decreased visual acuity H54.7 NSTEMI (non-ST elevated myocardial infarction) I21.4 Metabolic acidosis E87.2 Acute kidney injury superimposed on CKD N17.9; N18.9 Atrial fibrillation with RVR I48.91 Accelerated essential hypertension I10 Hypothyroid E03.9 Hypothyroidism type: acquired
[2019-11-26] MEDS: metoclopramide 5 mg/mL SDV 2 mL IVP (11:31)
[2019-11-26 11:36] LABS: Glucose Point of Care 173 mg/dL (70-110)
--- NOTE | 2019-11-26 12:15 | PC.NURSE ---
Pt stated she needed to have B. 2 person, with gait belt to BCS, several attempts for pt to stand. She kept saying I can't. Pt requires extensive encouragement. She was able to stand.
[2019-11-26] MEDS: hyDRALAzine 20 mg/mL INJ 1 mL 5 MG IVP (12:47)
[2019-11-26 17:10] LABS: Glucose Point of Care 137 mg/dL (70-110)
--- NOTE | 2019-11-26 18:16 | PC.NURSE ---
Pt discharged after providing and discussing discharge instructions. Centralized scheduling to call with appt. time for Sleep study.
--- NOTE | 2019-11-26 18:57 | P.PN_ITS ---
Subjective Subjective: Interval history: Patient is complaining of difficulty in seeing. Ophthalmology consult is requested for further evaluation. Patient denies any unusual chest pain or shortness of breath. Medications: Reviewed: Yes Medication Review Details: Current Medications Acetaminophen (Tylenol) 650 mg PO Q4H PRN PRN Reason: MILD PAIN OR INCREASE TEMP Last Admin: 11/20/19 15:31 Dose: 650 mg Documented by: Hydrocodone Bitart/Acetaminophen ([place] 5-325 Mg) 1 tab PO Q4H PRN PRN Reason: MODERATE PAIN Last Admin: 11/26/19 13:22 Dose: 1 tab Documented by: Amiodarone HCl (Cordarone) 400 mg PO BID [facility] Last Admin: 11/26/19 17:56 Dose: 400 mg Documented by: Amlodipine Besylate (Norvasc) 10 mg PO DAILY [facility] Aspirin (Aspirin Ec) 325 mg PO DAILY [facility] Last Admin: 11/26/19 09:29 Dose: 325 mg Documented by: Atorvastatin Calcium (Lipitor) 20 mg PO BEDTIME [facility] Last Admin: 11/25/19 21:04 Dose: 20 mg Documented by: Bisacodyl (Dulcolax) 10 mg PO DAILY PRN PRN Reason: CONSTIPATION Last Admin: 11/24/19 16:46 Dose: 10 mg Documented by: Bisacodyl (Dulcolax) 10 mg PO DAILY PRN PRN Reason: CONSTIPATION Dextrose (D50w) 25 ml IVP ONCE PRN; Protocol PRN Reason: hypoglycemia protocol Dextrose (D50w) 50 ml IVP PRN PRN; Protocol PRN Reason: hypoglycemia protocol Docusate Sodium (Colace) 100 mg PO DAILY PRN PRN Reason: CONSTIPATION Enoxaparin Sodium (Lovenox) 95 mg SUBCUT Q12H [facility] Last Admin: 11/26/19 07:30 Dose: 95 mg Documented by: Epinephrine (Vaponephrine) 0.5 ml INHALATION Q6H.RESPIRATORY PRN PRN Reason: Stridor Furosemide (Lasix) 40 mg IVP BID [facility] Last Admin: 11/26/19 17:57 Dose: 40 mg Documented by: Glucagon (Glucagen) 1 mg IM ONCE PRN; Protocol PRN Reason: Adult Acute Hypoglycemia Prot Hydralazine HCl (Apresoline) 5 mg IVP Q4H PRN PRN Reason: HYPERTENSION Last Admin: 11/26/19 12:47 Dose: 5 mg Documented by: Labetalol HCl 300 mg/ Sodium (Chloride) 300 mls @ 30 mls/hr IV .Q10H PRN; Protocol PRN Reason: Systolic BP > 140 mmHg Insulin Human Regular 250 unit (/ Sodium Chloride) 252.5 mls @ 0 mls/hr IV .Q0M [facility]; Protocol Amiodarone HCl 900 mg/Dextrose/ IV Miscellaneous Supplies 518 mls @ 0 mls/hr IV .Q0M [facility]; Protocol Last Titration: 11/22/19 18:22 Dose: Infused Documented by: Dextrose (D5w) 500 mls @ 100 mls/hr IV ONCE PRN; Protocol PRN Reason: Adult Acute Hypoglycemia Prot Insulin Aspart (Novolog) 0 unit SUBCUT WM&BEDTIME [facility]; Protocol Last Admin: 11/26/19 17:54 Dose: Not Given Documented by: Labetalol HCl (Trandate) 5 mg IVP Q6H PRN PRN Reason: HYPERTENSION Last Admin: 11/26/19 07:55 Dose: 5 mg Documented by: Lactulose (Constulose) 10 gm PO DAILY PRN PRN Reason: CONSTIPATION Levothyroxine Sodium (Synthroid) 100 mcg PO DAILY [facility] Magnesium Hydroxide (Milk Of Magnesia) 30 ml PO DAILY PRN PRN Reason: CONSTIPATION Meclizine HCl (Antivert) 25 mg PO TID PRN PRN Reason: DIZZINESS Metoclopramide HCl (Reglan) 5 mg IVP BID PRN PRN Reason: NAUSEA AND VOMITING Last Admin: 11/26/19 11:31 Dose: 5 mg Documented by: Metoprolol Tartrate (Metoprolol Tartrate) 5 mg IV Q4H PRN PRN Reason: Heart rate above 120 Metoprolol Tartrate (Lopressor) 25 mg PO BID [facility] Last Admin: 11/26/19 17:57 Dose: 25 mg Documented by: Naloxone HCl (Narcan) 0.1 mg IVP Q2M PRN PRN Reason: OPIATERV Neomycin/Polymyxin/Bacitracin (Neosporin Oint Pkt) 1 applic TOPICAL BID [facility] Last Admin: 11/26/19 17:57 Dose: 1 applic Documented by: Ondansetron HCl (Zofran) 4 mg IVP Q6H PRN PRN Reason: NAUSEA Pantoprazole Sodium (Protonix) 40 mg IVP DAILY [facility] Last Admin: 11/26/19 09:29 Dose: 40 mg Documented by: Polyethylene Glycol (Miralax) 17 gm PO BID [facility] Last Admin: 11/26/19 18:52 Dose: Not Given Documented by: Prednisone (Prednisone) 20 mg PO DAILY [facility] Last Admin: 11/26/19 09:29 Dose: 20 mg Documented by: Vitals/I&O/Wt Last Vital Signs Temp 98.1 F 11/26/19 18:09 Pulse 74 11/26/19 18:30 Resp 18 11/26/19 18:30 BP 143/73 11/26/19 18:30 Pulse Ox 94 11/26/19 18:30 11/26/19 11/26/19 11/26/19 06:59 14:59 22:59 Intake Total 200 / 1030 350 / 350 200 / 550 Output Total 1725 / 2325 575 / 575 Balance -1525 / -1295 350 / 350 -375 / -25 Weight last 48 hrs Weight 210 lb Weight 217 lb Physical Exam Const: COMMON NORMALS: alert GENERAL APPEARANCE: comfortable (Appears to be sleepy), well developed and lethargic ORIENTATION/CONSCIOUSNESS: Yes lethargic HENMT: MOUTH: no other (ulcers or bleeding) TEETH & GINGIVA: no other (bleeding observed and inflammation present) Eye: COMMON NORMALS: conjunctivae normal CONJUNCTIVA: Yes conjunctivae normal SCLERA: sclerae normal Neck/C-Spine: COMMON NORMALS: no JVD and thyroid normal THYROID: thyroid normal CAROTIDS: Yes normal carotid upstroke (and runoff) Chest: COMMONS NORMALS: inspection of chest normal CHEST: Yes abnormal inspection of the chest (Sternotomy site appears to be healing well. No evidence of any bleeding or infection.) Resp: COMMON NORMALS: clear to auscultation bilaterally EFFORT & INSPE CTION: Yes symmetric chest movement and No uses accessory muscles AUSCULTATION: clear to auscultation bilaterally, no crackles and no wheezes Cardio: COMMON NORMALS: no JVD PALPATION: no heave, no palpable S3 and no thrill HEART SOUNDS: no click, no murmurs and no rubs BRUITS: no abdominal aortic bruits PERIPHERAL PULSES: femoral pulses present positive bilateral (Normal) GI: AUSCULTATION: Yes normoactive bowel sounds and No abdominal bruit PALPATION: No tender, No hepatomegaly, No splenomegaly and No mass Back/Pelvis: GENERAL BACK: No swelling and No other (joint deformities) T HORACIC SPINE/UPPER BACK: No kyphosis present LUMBAR SPINE/LOWER BACK: No lumbar scoliosis present Extremity: COMMON NORMALS: negative for no clubbing, cyanosis or edema GENERAL: No cyanosis OTHER: 1+ edema bilaterally Neuro: COMMON NORMALS: moves all extremities and no focal motor deficits SENSORIUM/ORIENTATION: Yes alert, Yes lethargic and Yes other (Speech is slow) MOTOR EXAM: No tremor Psych: MOOD & AFFECT: Yes other (Normal mood and affect) Skin: COMMON NORMALS: skin turgor normal; negative for no petechiae GENERAL SKIN EXAM: turgor normal, skin not dry and no erythema RASHES: rash noted NAILS: normal, no clubbing, not discolored and no other (cyanosis) Urinary Catheter Management^: Mayorga Latex: Cath Placed During This Visit: no Data : 11/26/19 04:54 11/26/19 04:54 A&P Assessment and plan (1) Decreased visual acuity: Etiology is unclear. Patient is going to be evaluated by ophthalmology. Status: Acute Code(s): H54.7 - Unspecified visual loss (2) Status post aorto-coronary artery bypass graft: Patient status post two-vessel coronary bypass surgery. Clinically seems to be stable. Status: Acute Code(s): Z95.1 - Presence of aortocoronary bypass graft (3) NSTEMI (non-ST elevated myocardial infarction): Patient is on aspirin, Plavix, beta-radha and statin. May continue the current medications. Status: Acute Code(s): I21.4 - Non-ST elevation (NSTEMI) myocardial infarction (4) Chronic kidney disease: The kidney function is stable. We will continue monitoring the electrolytes. Status: Acute Qualifiers: Chronic kidney disease stage: stage 2 (mild) Qualified Code(s): N18.2 - Chronic kidney disease, stage 2 (mild) Code(s): N18.9 - Chronic kidney disease, unspecified (5) Accelerated essential hypertension: Patient had episodes of accelerated hypertension. She responded to labetalol. She was placed back on most of her preadmission medications. Currently the blood pressure seems to be getting under control. Status: Chronic Code(s): I10 - Essential (primary) hypertension (6) Postoperative atrial fibrillation: Currently the patient is in sinus rhythm. No recurrence of atrial fibrillation within the last 48 hours. Status: Acute Code(s): I97.89 - Other postprocedural complications and disorders of the circulatory system, not elsewhere classified; I48.91 - Unspecified atrial fibrillation Additional A&P Information I also may start the patient on Lipitor, if the liver function is back to normal. We will do a CMP in the morning Attestations Medical Necessity Statement*: Patient requires continued hospital stay for close monitoring and further management Coding Level of Care Code Acute Home Care Attendant for Chg Fwd History Comprehensive Exam Detailed Medical Decision Making Low Complexity Diagnoses Decreased visual acuity H54.7 Status post aorto-coronary artery bypass graft Z95.1 NSTEMI (non-ST elevated myocardial infarction) I21.4 Chronic kidney disease N18.2 Chronic kidney disease stage: stage 2 (mild) Accelerated essential hypertension I10 Postoperative atrial fibrillation I97.89; I48.91
[2019-11-26 21:08] LABS: Glucose Point of Care 152 mg/dL (70-110)
[2019-11-26] MEDS: atorvastatin 40 mg Tablet 20 MG PO (21:22)
[2019-11-27] VITALS (20 sets, daily range): BP systolic 125–179; BP diastolic 59–92; PULSE 62–92; RESP 10–26; TEMP 36.6–36.7; O2SAT 92–98
[2019-11-27] MEDS: HYDROcodone-acetaminophen 5-325 mg Tablet 1 TAB PO ×2 (04:21→21:50)
[2019-11-27] MEDS: hyDRALAzine 20 mg/mL INJ 1 mL 5 MG IVP ×2 (05:29→23:05)
[2019-11-27 07:58] LABS: Glucose Point of Care 90 mg/dL (70-110)
[2019-11-27] MEDS: enoxaparin 100 mg/mL Syringe 95 MG SUBCUT ×2 (08:47→21:50)
[2019-11-27] MEDS: neomycin-poly-bacitracin oint 0.9 gm Pkt 1 APPLIC TOPICAL ×2 (08:47→18:43)
[2019-11-27] MEDS: predniSONE 20 mg Tablet PO (08:48)
[2019-11-27] MEDS: amiodarone 200 mg Tablet 400 MG PO (08:48)
[2019-11-27] MEDS: FUROsemide 10 mg/mL SDV 4mL 40 MG IVP ×2 (08:48→18:43)
[2019-11-27] MEDS: meclizine 25 mg tablet PO (08:48)
[2019-11-27] MEDS: aspirin 325 mg EC Tablet PO (08:48)
[2019-11-27] MEDS: pantoprazole 40 mg SDV IVP (08:48)
[2019-11-27] MEDS: amlodipine 10 mg Tablet PO (08:48)
[2019-11-27] MEDS: metoprolol tartrate 50 mg Tablet PO ×2 (08:48→18:43)
--- NOTE | 2019-11-27 09:27 | PC.SOCIAL ---
IMM Update Pg 2 of IMM Updated.
[2019-11-27] MEDS: metoclopramide 5 mg/mL SDV 2 mL IVP (09:42)
--- NOTE | 2019-11-27 10:01 | PC.CHAP ---
Pastoral Care Encounter/Spiritual Assessment Type of Contact [] Declined electrical engineering draftsperson visit [] Patient/Family/Request visit [] Outpatient visit [] Follow-up visit [] Physician referral [] Code/Alert [] Routine visit [] Staff referral [] Actively dying [] Patient sleeping [] Family support [] [] Out of room [] Palliative care [] [] Receiving care in room [] Pre-surgical visit [] Trauma [] Long length of stay [] ICU visit [] Other: Relational/Emotional Strength [] Patient feels connected with others/family/visitors/staff [] Distress [] Loneliness/isolation [] Abandonment Spirituality of Patient [X] Person of Kaylen [] Attends Hindu of their Kaylen [X] Believes in Prayer [] Reads Bible or Jew materials [] There are Spiritual issues to be addressed Manager Business Information Interventions [x] Prayer [] Active listening [] Non-anxious presence [x] Spiritual/emotional support [] Crisis/trauma care [] Spiritual counseling [] Bereavement support [] Provided bereavement packet [] Provided Bible/devotional materials [] Provided toy/stuffed animal, coloring book to patient or family member [x] Completed spiritual assessment [] Provided Communion [] Anointing/[place] [] Salvation [] Other: Impact on Illness or Injury [] Angry [] Fearful [] Anxious [x] Often cries [] Exhaustion [] Unable to work [] Unable to attend sabianism [] Unable to walk/stand [] Unable to read [] Unable to drive [] Unable to eat/drink [] Unable to sleep [] Unable to be with family [x] Other: Patient says she is in pain. Patient has undergone heart surgery. Summary Time spent with patient 10min
[2019-11-27 13:43] LABS: Glucose Point of Care 156 mg/dL (70-110)
--- NOTE | 2019-11-27 14:05 | P.CONIM_ITS ---
Providers/Reason For Consult Consulting Physican/Specialty*: ophthalmology Reason for Consult*: Blurred vision post CABG Attending Physician: Mandy Dias MD History of Present Illness History of Present Illness Eliana Samuels is a 69 year old female Review of Systems Eyes: Reports: change in vision (Patient states was recently unable to get better glasses preoperatively. Since surgery she feels like her vision has fluctuated sometimes more blurry than others she denies any quadrant loss just straightahead blurring) Meds/Allergies Home Medications and Allergies Home Medications Medication Instructions Recorded Confirmed Type amlodipine [Norvasc] 10 mg PO DAILY 11/17/19 11/17/19 History carvedilol 12.5 mg PO BID 11/17/19 11/17/19 History cyanocobalamin (vitamin B-12) 1,000 mcg PO DAILY 11/17/19 11/17/19 History [Vitamin B-12] levothyroxine [Synthroid] 88 mcg PO DAILY 11/17/19 11/17/19 History liothyronine 5 mcg PO DAILY 11/17/19 11/17/19 History lisinopril 20 mg PO BID 11/17/19 11/17/19 History Allergies Allergy/AdvReac Type Severity Reaction Status Date / Time No Known Allergies Allergy Verified 11/16/19 22:57 Current Medications Current Medications Generic Name Dose Route Start Last Admin Trade Name Freq PRN Reason Stop Dose Admin Acetaminophen 650 mg 11/20/19 15:21 11/20/19 15:31 Tylenol PO 650 mg Q4H PRN Administration MILD PAIN OR INCREASE TEMP Hydrocodone Bitart/Acetaminophen 1 tab 11/26/19 07:36 11/27/19 04:21 [place] 5-325 Mg PO 1 tab Q4H PRN Administration MODERATE PAIN Amiodarone HCl 400 mg 11/27/19 09:00 11/27/19 08:48 Cordarone PO 400 mg DAILY [facility] Administration Amlodipine Besylate 10 mg 11/27/19 09:00 11/27/19 08:48 Norvasc PO 10 mg DAILY [facility] Administration Aspirin 325 mg 11/25/19 09:00 11/27/19 08:48 Aspirin Ec PO 325 mg DAILY [facility] Administration Atorvastatin Calcium 20 mg 11/20/19 21:00 11/26/19 21:22 Lipitor PO 20 mg BEDTIME [facility] Administration Bisacodyl 10 mg 11/24/19 14:14 11/24/19 16:46 Dulcolax PO 10 mg DAILY PRN Administration CONSTIPATION Enoxaparin Sodium 95 mg 11/24/19 07:45 11/27/19 08:47 Lovenox SUBCUT 95 mg Q12H [facility] Administration Furosemide 40 mg 11/22/19 18:00 11/27/19 08:48 Lasix IVP 40 mg BID [facility] Administration Hydralazine HCl 5 mg 11/26/19 11:44 11/27/19 05:29 Apresoline IVP 5 mg Q4H PRN Administration HYPERTENSION Amiodarone HCl 900 mg/ 518 mls @ 0 mls/hr 11/21/19 02:45 11/22/19 18:22 Dextrose/ IV Miscellaneous IV Infused Supplies .Q0M [facility] Titration Protocol Per Protocol Insulin Aspart 0 unit 11/21/19 18:00 11/27/19 11:51 Novolog SUBCUT 4 unit WM&BEDTIME [facility] Administration Protocol Labetalol HCl 5 mg 11/24/19 04:45 11/26/19 07:55 Trandate IVP 5 mg Q6H PRN Administration HYPERTENSION Meclizine HCl 25 mg 11/26/19 13:30 11/27/19 08:48 Antivert PO 25 mg TID PRN Administration DIZZINESS Metoclopramide HCl 5 mg 11/25/19 13:17 11/27/19 09:42 Reglan IVP 5 mg BID PRN Administration NAUSEA AND VOMITING Metoprolol Tartrate 50 mg 11/27/19 09:00 11/27/19 08:48 Lopressor PO 50 mg BID [facility] Administration Neomycin/Polymyxin/Bacitracin 1 applic 11/20/19 02:00 11/27/19 08:47 Neosporin Oint Pkt TOPICAL 1 applic BID [facility] Administration Pantoprazole Sodium 40 mg 11/22/19 09:00 11/27/19 08:48 Protonix IVP 40 mg DAILY [facility] Administration Polyethylene Glycol 17 gm 11/25/19 18:00 11/27/19 08:49 Miralax PO Not Given BID [facility] Prednisone 20 mg 11/25/19 15:00 11/27/19 08:48 Prednisone PO 20 mg DAILY [facility] Administration PFSH Acute PFSH: Statuses (acute, chronic, etc) shown below reflect problem list status as previously entered and may not be historically accurate Medical History Tubal ligation evaluation (Acute) Surgical History H/O hysterectomy for benign disease (Acute) Family History Brother CAD (coronary artery disease), Onset Age: 59 of myocardial infarction at age 59 Father CAD (coronary artery disease), Onset Age: 55 Had open heart surgery x3 Grandfather CAD (coronary artery disease), Onset Age: 55 Also of myocardial infarction in the late 50s Social History Smoking and tobacco status: former smoker Vitals/I&O/Wt Last Vital Signs Temp 97.9 F 11/27/19 04:15 Pulse 92 11/27/19 09:00 Resp 24 H 11/27/19 09:00 BP 164/81 11/27/19 09:00 Pulse Ox 94 11/27/19 09:00 11/26/19 11/27/19 11/27/19 22:59 06:59 14:59 Intake Total 200 / 550 50 / 600 Output Total 1025 / 1025 350 / 1375 Balance -825 / -475 -300 / -775 Weight last 48 hrs Weight 88.859 kg Weight 88.859 kg Weight 90.537 kg Weight 95.254 kg Physical Exam Narrative: EXAM NARRATIVE: Patient is awake adequately alert to respond to requests. She does state that her vision seems blurry in general at this time. Eye: COMMON NORMALS: PERRL (Pupils are both 3 mm and reactive to light), EOMs intact bilaterally, conjunctivae normal and normal visual [place] by confrontation GENERAL EYE: normal light reflex VISUAL ACUITY: Yes acuity normal EYELID: eyelids normal CONJUNCTIVA: Yes conjunctivae normal SCLERA: sclerae normal CORNEA: Yes corneas normal PUPIL: Yes PERRL (Pupils are both 3 mm and reactive to light) DIRECT OPHTHALMOSCOPY: Yes normal light reflex and Yes anterior chamber normal OTHER: Urinary Catheter Management^: Mayorga Latex: Cath Placed During This Visit: no Consult Attestations Medical Necessity Statement: Blurred vision postoperatively Time Spent in Patient Care: 16 - 35 minutes Coding Level of Care Code Acute Sales Administration Specialist for Hillary Lambert
[2019-11-27 17:41] LABS: Glucose Point of Care 135 mg/dL (70-110)
--- NOTE | 2019-11-27 19:57 | PM.PN ---
Subjective Subjective: Interval history: Patient is complaining of difficulty in seeing. However, today states that this has been ongoing several months now and previously attributed to cataract.C/o being very tired today. No c/o chest pain/ dyspnea/ palpitations. Medications: Reviewed: Yes Medication Review Details: Current Medications Acetaminophen (Tylenol) 650 mg PO Q4H PRN PRN Reason: MILD PAIN OR INCREASE TEMP Last Admin: 11/20/19 15:31 Dose: 650 mg Documented by: Hydrocodone Bitart/Acetaminophen ([place] 5-325 Mg) 1 tab PO Q4H PRN PRN Reason: MODERATE PAIN Last Admin: 11/26/19 13:22 Dose: 1 tab Documented by: Amiodarone HCl (Cordarone) 400 mg PO BID [facility] [place] Last Admin: 11/26/19 17:56 Dose: 400 mg Documented by: Amlodipine Besylate (Norvasc) 10 mg PO DAILY [facility] [place] Aspirin (Aspirin Ec) 325 mg PO DAILY [facility] [place] Last Admin: 11/26/19 09:29 Dose: 325 mg Documented by: Atorvastatin Calcium (Lipitor) 20 mg PO BEDTIME [facility] [place] Last Admin: 11/25/19 21:04 Dose: 20 mg Documented by: Bisacodyl (Dulcolax) 10 mg PO DAILY PRN PRN Reason: CONSTIPATION Last Admin: 11/24/19 16:46 Dose: 10 mg Documented by: Bisacodyl (Dulcolax) 10 mg PO DAILY PRN PRN Reason: CONSTIPATION Dextrose (D50w) 25 ml IVP ONCE PRN; Protocol PRN Reason: hypoglycemia protocol Dextrose (D50w) 50 ml IVP PRN PRN; Protocol PRN Reason: hypoglycemia protocol Docusate Sodium (Colace) 100 mg PO DAILY PRN PRN Reason: CONSTIPATION Enoxaparin Sodium (Lovenox) 95 mg SUBCUT Q12H [facility] [place] Last Admin: 11/26/19 07:30 Dose: 95 mg Documented by: Epinephrine (Vaponephrine) 0.5 ml INHALATION Q6H.RESPIRATORY PRN PRN Reason: Stridor Furosemide (Lasix) 40 mg IVP BID [facility] [place] Last Admin: 11/26/19 17:57 Dose: 40 mg Documented by: Glucagon (Glucagen) 1 mg IM ONCE PRN; Protocol PRN Reason: Adult Acute Hypoglycemia Prot Hydralazine HCl (Apresoline) 5 mg IVP Q4H PRN PRN Reason: HYPERTENSION Last Admin: 11/26/19 12:47 Dose: 5 mg Documented by: Labetalol HCl 300 mg/ Sodium (Chloride) 300 mls @ 30 mls/hr IV .Q10H PRN; Protocol PRN Reason: Systolic BP > 140 mmHg Insulin Human Regular 250 unit (/ Sodium Chloride) 252.5 mls @ 0 mls/hr IV .Q0M [facility] [place]; Protocol Amiodarone HCl 900 mg/Dextrose/ IV Miscellaneous Supplies 518 mls @ 0 mls/hr IV .Q0M [facility] [place]; Protocol Last Titration: 11/22/19 18:22 Dose: Infused Documented by: Dextrose (D5w) 500 mls @ 100 mls/hr IV ONCE PRN; Protocol PRN Reason: Adult Acute Hypoglycemia Prot Insulin Aspart (Novolog) 0 unit SUBCUT WM&BEDTIME [facility] [place]; Protocol Last Admin: 11/26/19 17:54 Dose: Not Given Documented by: Labetalol HCl (Trandate) 5 mg IVP Q6H PRN PRN Reason: HYPERTENSION Last Admin: 11/26/19 07:55 Dose: 5 mg Documented by: Lactulose (Constulose) 10 gm PO DAILY PRN PRN Reason: CONSTIPATION Levothyroxine Sodium (Synthroid) 100 mcg PO DAILY [facility] [place] Magnesium Hydroxide (Milk Of Magnesia) 30 ml PO DAILY PRN PRN Reason: CONSTIPATION Meclizine HCl (Antivert) 25 mg PO TID PRN PRN Reason: DIZZINESS Metoclopramide HCl (Reglan) 5 mg IVP BID PRN PRN Reason: NAUSEA AND VOMITING Last Admin: 11/26/19 11:31 Dose: 5 mg Documented by: Metoprolol Tartrate (Metoprolol Tartrate) 5 mg IV Q4H PRN PRN Reason: Heart rate above 120 Metoprolol Tartrate (Lopressor) 25 mg PO BID [facility] [place] Last Admin: 11/26/19 17:57 Dose: 25 mg Documented by: Naloxone HCl (Narcan) 0.1 mg IVP Q2M PRN PRN Reason: OPIATERV Neomycin/Polymyxin/Bacitracin (Neosporin Oint Pkt) 1 applic TOPICAL BID [facility] [place] Last Admin: 11/26/19 17:57 Dose: 1 applic Documented by: Ondansetron HCl (Zofran) 4 mg IVP Q6H PRN PRN Reason: NAUSEA Pantoprazole Sodium (Protonix) 40 mg IVP DAILY [facility] [place] Last Admin: 11/26/19 09:29 Dose: 40 mg Documented by: Polyethylene Glycol (Miralax) 17 gm PO BID [facility] [place] Last Admin: 11/26/19 18:52 Dose: Not Given Documented by: Prednisone (Prednisone) 20 mg PO DAILY [facility] [place] Last Admin: 11/26/19 09:29 Dose: 20 mg Documented by: Vitals/I&O/Wt Last Vital Signs Temp 97.9 F 11/27/19 04:15 Pulse 83 11/27/19 18:00 Resp 21 H 11/27/19 18:00 BP 179/92 11/27/19 18:00 Pulse Ox 95 11/27/19 17:18 11/27/19 11/27/19 11/27/19 06:59 14:59 22:59 Intake Total 50 / 600 370 / 370 300 / 670 Output Total 350 / 1375 700 / 700 Balance -300 / -775 370 / 370 -400 / -30 Weight last 48 hrs Weight 88.859 kg Weight 88.859 kg Weight 90.537 kg Weight 95.254 kg Physical Exam Narrative: EXAM NARRATIVE: GEN: Awake, alert and oriented, Sitting in chair by bedside, eating breakfast, no acute distress CVS: S1S2 N RS: CTA B/L all areas Abd: Soft, nt/nd , bs+ MINE ANALYST: no focal neuro deficits Urinary Catheter Management^: Mayorga Latex: Cath Placed During This Visit: no Data : 11/26/19 04:54 11/26/19 04:54 A&P Assessment and plan (1) Decreased visual acuity: Appreciate ophthalmology consult. No acute interventions recommended at this time. Status: Acute Code(s): H54.7 - Unspecified visual loss (2) NSTEMI (non-ST elevated myocardial infarction): Continues to improve post operatively from CABG. Working with PT. Dizziness mproved since starting meclizine. Continue to wean off oxygen. Diet advanced, ST, OT, PT. Has had multiple BMs now at this point For now continues on low-dose prednisone en concern for possible adrenal insufficiency, possible GCA. Postoperatively he was assessed by tele-neurology for concern for possible CVA, although initially seen focal abnormalities have resolved. Please see neurologist note in paper chart. She has been in atrial fibrillation. Started on therapeutic Lovenox which she has tolerated. With possible component of pulmonary hypertension contributing to hypoxia with PA pressure noted elevated on TTE. Of note TSH was low on presentation, and she takes levothyroxine 100 mcg and not liothyronine. TSH and free T3 again low, suspected secondary to sick euthyroid syndrome currently. For now we will hold off on adjusting thyroid medications. Reassess again once she is out of acute condition. Fever resolved without evidence of infection, possibly related to left lower lobe atelectasis, versus related to antibiotic, versus possible adrenal insufficiency, or possibly vasculitis. No DVT of either lower extremity. Fever now resolved. Status: Acute Code(s): I21.4 - Non-ST elevation (NSTEMI) myocardial infarction (3) Metabolic acidosis: Resolved. Status: Acute Code(s): E87.2 - Acidosis (4) Acute kidney injury superimposed on CKD: Resolving. Status: Acute Code(s): N17.9 - Acute kidney failure, unspecified; N18.9 - Chronic kidney disease, unspecified (5) Atrial fibrillation with RVR: Transitioned to oral amiodarone, continue metoprolol. In SR. Status: Acute Code(s): I48.91 - Unspecified atrial fibrillation (6) Accelerated essential hypertension: Blood pressure at goal. Better controlled after resuming home medications Status: Chronic Code(s): I10 - Essential (primary) hypertension (7) Hypothyroid: Status: Chronic Qualifiers: Hypothyroidism type: acquired Qualified Code(s): E03.9 - Hypothyroidism, unspecified Code(s): E03.9 - Hypothyroidism, unspecified Additional A&P Information She is not normally on oxygen at home. Attestations Medical Necessity Statement*: Improving s/p CABG, discharge planning ongoing for SNF placement, awaiting pre authorization Coding Level of Care Code Acute Inseamer for Chg Fwd Diagnoses Decreased visual acuity H54.7 NSTEMI (non-ST elevated myocardial infarction) I21.4 Metabolic acidosis E87.2 Acute kidney injury superimposed on CKD N17.9; N18.9 Atrial fibrillation with RVR I48.91 Accelerated essential hypertension I10 Hypothyroid E03.9 Hypothyroidism type: acquired
--- NOTE | 2019-11-27 20:30 | P.PN_ITS ---
Subjective Subjective: Interval history: Patient continues to improve. Her vision is better today. She is able to read. Sitting up at the bedside chair. No recurrence of atrial fibrillation within the last 48 hours. Medications: Reviewed: Yes Medication Review Details: Current Medications Acetaminophen (Tylenol) 650 mg PO Q4H PRN PRN Reason: MILD PAIN OR INCREASE TEMP Last Admin: 11/20/19 15:31 Dose: 650 mg Documented by: Hydrocodone Bitart/Acetaminophen ([place] 5-325 Mg) 1 tab PO Q4H PRN PRN Reason: MODERATE PAIN Last Admin: 11/26/19 13:22 Dose: 1 tab Documented by: Amiodarone HCl (Cordarone) 400 mg PO BID [facility] Last Admin: 11/26/19 17:56 Dose: 400 mg Documented by: Amlodipine Besylate (Norvasc) 10 mg PO DAILY [facility] Aspirin (Aspirin Ec) 325 mg PO DAILY [facility] Last Admin: 11/26/19 09:29 Dose: 325 mg Documented by: Atorvastatin Calcium (Lipitor) 20 mg PO BEDTIME [facility] Last Admin: 11/25/19 21:04 Dose: 20 mg Documented by: Bisacodyl (Dulcolax) 10 mg PO DAILY PRN PRN Reason: CONSTIPATION Last Admin: 11/24/19 16:46 Dose: 10 mg Documented by: Bisacodyl (Dulcolax) 10 mg PO DAILY PRN PRN Reason: CONSTIPATION Dextrose (D50w) 25 ml IVP ONCE PRN; Protocol PRN Reason: hypoglycemia protocol Dextrose (D50w) 50 ml IVP PRN PRN; Protocol PRN Reason: hypoglycemia protocol Docusate Sodium (Colace) 100 mg PO DAILY PRN PRN Reason: CONSTIPATION Enoxaparin Sodium (Lovenox) 95 mg SUBCUT Q12H [facility] Last Admin: 11/26/19 07:30 Dose: 95 mg Documented by: Epinephrine (Vaponephrine) 0.5 ml INHALATION Q6H.RESPIRATORY PRN PRN Reason: Stridor Furosemide (Lasix) 40 mg IVP BID [facility] Last Admin: 11/26/19 17:57 Dose: 40 mg Documented by: Glucagon (Glucagen) 1 mg IM ONCE PRN; Protocol PRN Reason: Adult Acute Hypoglycemia Prot Hydralazine HCl (Apresoline) 5 mg IVP Q4H PRN PRN Reason: HYPERTENSION Last Admin: 11/26/19 12:47 Dose: 5 mg Documented by: Labetalol HCl 300 mg/ Sodium (Chloride) 300 mls @ 30 mls/hr IV .Q10H PRN; Protocol PRN Reason: Systolic BP > 140 mmHg Insulin Human Regular 250 unit (/ Sodium Chloride) 252.5 mls @ 0 mls/hr IV .Q0M [facility]; Protocol Amiodarone HCl 900 mg/Dextrose/ IV Miscellaneous Supplies 518 mls @ 0 mls/hr IV .Q0M [facility]; Protocol Last Titration: 11/22/19 18:22 Dose: Infused Documented by: Dextrose (D5w) 500 mls @ 100 mls/hr IV ONCE PRN; Protocol PRN Reason: Adult Acute Hypoglycemia Prot Insulin Aspart (Novolog) 0 unit SUBCUT WM&BEDTIME [facility]; Protocol Last Admin: 11/26/19 17:54 Dose: Not Given Documented by: Labetalol HCl (Trandate) 5 mg IVP Q6H PRN PRN Reason: HYPERTENSION Last Admin: 11/26/19 07:55 Dose: 5 mg Documented by: Lactulose (Constulose) 10 gm PO DAILY PRN PRN Reason: CONSTIPATION Levothyroxine Sodium (Synthroid) 100 mcg PO DAILY [facility] Magnesium Hydroxide (Milk Of Magnesia) 30 ml PO DAILY PRN PRN Reason: CONSTIPATION Meclizine HCl (Antivert) 25 mg PO TID PRN PRN Reason: DIZZINESS Metoclopramide HCl (Reglan) 5 mg IVP BID PRN PRN Reason: NAUSEA AND VOMITING Last Admin: 11/26/19 11:31 Dose: 5 mg Documented by: Metoprolol Tartrate (Metoprolol Tartrate) 5 mg IV Q4H PRN PRN Reason: Heart rate above 120 Metoprolol Tartrate (Lopressor) 25 mg PO BID [facility] Last Admin: 11/26/19 17:57 Dose: 25 mg Documented by: Naloxone HCl (Narcan) 0.1 mg IVP Q2M PRN PRN Reason: OPIATERV Neomycin/Polymyxin/Bacitracin (Neosporin Oint Pkt) 1 applic TOPICAL BID [facility] Last Admin: 11/26/19 17:57 Dose: 1 applic Documented by: Ondansetron HCl (Zofran) 4 mg IVP Q6H PRN PRN Reason: NAUSEA Pantoprazole Sodium (Protonix) 40 mg IVP DAILY [facility] Last Admin: 11/26/19 09:29 Dose: 40 mg Documented by: Polyethylene Glycol (Miralax) 17 gm PO BID [facility] Last Admin: 11/26/19 18:52 Dose: Not Given Documented by: Prednisone (Prednisone) 20 mg PO DAILY [facility] Last Admin: 11/26/19 09:29 Dose: 20 mg Documented by: Vitals/I&O/Wt Last Vital Signs Temp 98.1 F 11/27/19 20:00 Pulse 62 11/27/19 20:00 Resp 21 H 11/27/19 20:00 BP 151/86 11/27/19 20:00 Pulse Ox 97 11/27/19 20:00 11/27/19 11/27/19 11/27/19 06:59 14:59 22:59 Intake Total 50 / 600 370 / 370 300 / 670 Output Total 350 / 1375 700 / 700 Balance -300 / -775 370 / 370 -400 / -30 Weight last 48 hrs Weight 195 lb 14.4 oz Weight 195 lb 14.4 oz Weight 199 lb 9.6 oz Weight 210 lb Physical Exam Narrative: EXAM NARRATIVE: GENERAL: The patient is alert and oriented times three. Not in any acute distress. HEENT: Minimal pallor,no icterus or lymphadenopathy. The pupils are reactant to light. Oral cavity: There are no mucous membrane lesions. Funduscopic examination: NECK: Trachea appears to be central. No masses noted. No JVD or thyromegaly appreciated. No carotid bruit. RESPIRATORY: Chest is symmetrical. No intercostals muscle retraction or any accessory muscle activation. Sternotomy site looks okay with no hematoma bleeding Breath sounds are heard bilaterally. No rales or rhonchi heard. No evidence of any consolidation. BREASTS: Deferred. HEART: The heart sounds are normal. No S3 or S4. No severe murmurs. No pericardial rub ABDOMEN: No vessel pulsations or distention. No tenderness. No organomegaly appreciated. No abdominal bruit. Bowel sounds are normally heard. : Deferred. RECTAL: Deferred. LYMPHATIC: No lymphadenopathy noted in the neck or groin. EXTREMITIES: Trace edema of the lower estimated his with no cyanosis. MUSCULOSKELETAL: No acute joint deformities or swelling SKIN: There are no significant scars or skin rash noted. NEUROPSYCHIATRIC: The patient is alert and oriented x3. No focal motor deficits Urinary Catheter Management^: Mayorga Latex: Cath Placed During This Visit: no Data : 11/26/19 04:54 11/26/19 04:54 Other Labs: Laboratory Results - last 24 hr 11/26/19 11/27/19 11/27/19 21:05 07:33 11:39 POC Glucose 152 90 156 11/27/19 17:33 POC Glucose 135 A&P Assessment and plan (1) Postoperative atrial fibrillation: Currently the patient is in sinus rhythm. No recurrence of atrial fibrillation within the last 48 hours. I may cut back on the dose of amiodarone to 400 mg by mouth daily. Status: Acute Code(s): I97.89 - Other postprocedural complications and disorders of the circulatory system, not elsewhere classified; I48.91 - Unspecified atrial fibrillation (2) Status post aorto-coronary artery bypass graft: Patient status post two-vessel coronary bypass surgery. Clinically seems to be stable. Today's date. Status: Acute Code(s): Z95.1 - Presence of aortocoronary bypass graft (3) NSTEMI (non-ST elevated myocardial infarction): Patient is on aspirin, Plavix, beta-radha and statin. May continue the current medications. Status: Acute Code(s): I21.4 - Non-ST elevation (NSTEMI) myocardial infarction (4) Chronic kidney disease: The kidney function is stable. We will continue monitoring the electrolytes. Status: Acute Qualifiers: Chronic kidney disease stage: stage 2 (mild) Qualified Code(s): N18.2 - Chronic kidney disease, stage 2 (mild) Code(s): N18.9 - Chronic kidney disease, unspecified (5) Accelerated essential hypertension: The patient is stage II. Will gradually titrate the dose of the antihypertensive medications Status: Chronic Code(s): I10 - Essential (primary) hypertension Attestations Medical Necessity Statement*: Patient requires continued hospital stay for close monitoring and further management Coding Level of Care Code Acute Key Ringer for [facility] Diagnoses Postoperative atrial fibrillation I97.89; I48.91 Status post aorto-coronary artery bypass graft Z95.1 NSTEMI (non-ST elevated myocardial infarction) I21.4 Chronic kidney disease N18.2 Chronic kidney disease stage: stage 2 (mild) Accelerated essential hypertension I10
[2019-11-27] MEDS: atorvastatin 40 mg Tablet 20 MG PO (21:51)
[2019-11-27 21:53] LABS: Glucose Point of Care 160 mg/dL (70-110)
[2019-11-28] VITALS (22 sets, daily range): BP systolic 104–155; BP diastolic 64–110; PULSE 64–102; RESP 13–31; TEMP 36.5–36.8; O2SAT 93–97
--- NOTE | 2019-11-28 00:38 | PC.NURSE ---
Increased b/p - prn IV Hydralazine administered.
[2019-11-28] MEDS: HYDROcodone-acetaminophen 5-325 mg Tablet 1 TAB PO ×2 (01:16→21:37)
--- NOTE | 2019-11-28 06:35 | PM.PN ---
Subjective Subjective: Interval history: Postop day #9 status post CABG. Ms. Melara has slowly improved, particularly over the past 3 days. Much of the neurologic concerns however resolved spontaneously. Vision has improved. She is up in chair on rounds this morning, though she does require full assist. Dressings are in place. She is certainly at a high risk for wound complications related to her comorbidities, her large breast tissue, her prolonged period of intubation, and her overall deconditioned state. She will clearly need rehabilitation on the inpatient setting. I would expect her recovery to be markedly protracted with potential for complications related to the comorbidities and the urgent nature of the surgery. Vitals/I&O/Wt Last Vital Signs Temp 98.1 F 11/27/19 20:00 Pulse 80 11/28/19 04:00 Resp 17 11/28/19 04:00 BP 148/71 11/28/19 04:00 Pulse Ox 94 11/28/19 04:00 11/27/19 11/27/19 11/28/19 14:59 22:59 06:59 Intake Total 370 / 370 300 / 670 150 / 820 Output Total 700 / 700 1600 / 2300 Balance 370 / 370 -400 / -30 -1450 / -1480 Weight last 48 hrs Weight 192 lb 6.4 oz Weight 195 lb 14.4 oz Weight 195 lb 14.4 oz Weight 199 lb 9.6 oz Physical Exam Chest: OTHER: Postop dressing remains in place. We will have this changed later this morning with the day nursing service with myself present for incision inspection. She is at a substantial risk for wound complications and breakdown. Resp: EFFORT & INSPECTION: Yes decreased respiratory effort (Though improving. Still with some decreased breath sounds in the bases bilaterally.) Cardio: COMMON NORMALS: regular rate, regular rhythm and no rub RATE: regular rate RHYTHM: regular rhythm Urinary Catheter Management^: Mayorga Latex: Cath Placed During This Visit: no Data : 11/26/19 04:54 11/26/19 04:54 A&P Assessment and plan (1) Status post aorto-coronary artery bypass graft: Postop day #9 status post expeditious CABG for left main stenosis. Will continue routine postop course. Will need arrangements for inpatient prison care. Meticulous wound care as she is at a high risk for healing complications. I will be off service until December 01 Status: Acute Code(s): Z95.1 - Presence of aortocoronary bypass graft Attestations Medical Necessity Statement*: Postop day #9 status post CABG with continued need for inpatient hospital care due to numerous comorbidities Time Spent in Patient Care: less than 15 minutes Coding Level of Care Code Acute Secondary Market Manager for Chg Fwd Diagnoses Status post aorto-coronary artery bypass graft Z95.1
[2019-11-28 07:41] LABS: Glucose Point of Care 98 mg/dL (70-110)
[2019-11-28] MEDS: amlodipine 10 mg Tablet PO (08:19)
[2019-11-28] MEDS: pantoprazole DR 40 mg Tablet PO (08:19)
[2019-11-28] MEDS: metoprolol tartrate 50 mg Tablet PO ×2 (08:19→18:04)
[2019-11-28] MEDS: aspirin 325 mg EC Tablet PO (08:19)
[2019-11-28] MEDS: amiodarone 200 mg Tablet 400 MG PO (08:20)
[2019-11-28] MEDS: FUROsemide 10 mg/mL SDV 4mL 40 MG IVP ×2 (08:20→18:04)
[2019-11-28] MEDS: enoxaparin 100 mg/mL Syringe 95 MG SUBCUT (08:20)
[2019-11-28] MEDS: predniSONE 20 mg Tablet PO (08:20)
[2019-11-28] MEDS: neomycin-poly-bacitracin oint 0.9 gm Pkt 1 APPLIC TOPICAL ×2 (08:20→18:04)
[2019-11-28] MEDS: polyethylene glycol 3350 Pkt 17 gm PO (08:21)
[2019-11-28] MEDS: ondansetron 2 mg/ML SDV 2 mL 4 MG IVP (09:35)
--- NOTE | 2019-11-28 09:56 | PC.NUTR ---
NUTR ASSESSMENT: Spoke with pt regarding education post op CABG. Offered pt supplement, and pt reported not ready at this time. Otherwise pt doing well, some pain.
--- NOTE | 2019-11-28 10:58 | P.PN_ITS ---
Subjective Subjective: Interval history: Patient had some episodes of nausea and vomiting early this morning. Currently is feeling better. She had a examination by the city clerk. Was told to have a cataract causing the visual disturbance. No neurological deficits. No other specific complaints. Medications: Reviewed: Yes Medication Review Details: C Current Medications Acetaminophen (Tylenol) 650 mg PO Q4H PRN PRN Reason: MILD PAIN OR INCREASE TEMP Last Admin: 11/20/19 15:31 Dose: 650 mg Documented by: Hydrocodone Bitart/Acetaminophen ([place] 5-325 Mg) 1 tab PO Q4H PRN PRN Reason: MODERATE PAIN Last Admin: 11/28/19 01:16 Dose: 1 tab Documented by: Amiodarone HCl (Cordarone) 400 mg PO DAILY [facility] Last Admin: 11/28/19 08:20 Dose: 400 mg Documented by: Amlodipine Besylate (Norvasc) 10 mg PO DAILY [facility] Last Admin: 11/28/19 08:19 Dose: 10 mg Documented by: Aspirin (Aspirin Ec) 325 mg PO DAILY [facility] Last Admin: 11/28/19 08:19 Dose: 325 mg Documented by: Atorvastatin Calcium (Lipitor) 20 mg PO BEDTIME [facility] Last Admin: 11/27/19 21:51 Dose: 20 mg Documented by: Bisacodyl (Dulcolax) 10 mg PO DAILY PRN PRN Reason: CONSTIPATION Last Admin: 11/24/19 16:46 Dose: 10 mg Documented by: Bisacodyl (Dulcolax) 10 mg PO DAILY PRN PRN Reason: CONSTIPATION Dextrose (D50w) 25 ml IVP ONCE PRN; Protocol PRN Reason: hypoglycemia protocol Dextrose (D50w) 50 ml IVP PRN PRN; Protocol PRN Reason: hypoglycemia protocol Docusate Sodium (Colace) 100 mg PO DAILY PRN PRN Reason: CONSTIPATION Enoxaparin Sodium (Lovenox) 95 mg SUBCUT Q12H [facility] Last Admin: 11/28/19 08:20 Dose: 95 mg Documented by: Epinephrine (Vaponephrine) 0.5 ml INHALATION Q6H.RESPIRATORY PRN PRN Reason: Stridor Furosemide (Lasix) 40 mg IVP BID [facility] Last Admin: 11/28/19 08:20 Dose: 40 mg Documented by: Glucagon (Glucagen) 1 mg IM ONCE PRN; Protocol PRN Reason: Adult Acute Hypoglycemia Prot Hydralazine HCl (Apresoline) 5 mg IVP Q4H PRN PRN Reason: HYPERTENSION Last Admin: 11/27/19 23:05 Dose: 5 mg Documented by: Labetalol HCl 300 mg/ Sodium (Chloride) 300 mls @ 30 mls/hr IV .Q10H PRN; Protocol PRN Reason: Systolic BP > 140 mmHg Insulin Human Regular 250 unit (/ Sodium Chloride) 252.5 mls @ 0 mls/hr IV .Q0M [facility]; Protocol Amiodarone HCl 900 mg/Dextrose/ IV Miscellaneous Supplies 518 mls @ 0 mls/hr IV .Q0M [facility]; Protocol Last Titration: 11/22/19 18:22 Dose: Infused Documented by: Dextrose (D5w) 500 mls @ 100 mls/hr IV ONCE PRN; Protocol PRN Reason: Adult Acute Hypoglycemia Prot Insulin Aspart (Novolog) 0 unit SUBCUT WM&BEDTIME [facility]; Protocol Last Admin: 11/28/19 07:23 Dose: Not Given Documented by: Labetalol HCl (Trandate) 5 mg IVP Q6H PRN PRN Reason: HYPERTENSION Last Admin: 11/26/19 07:55 Dose: 5 mg Documented by: Lactulose (Constulose) 10 gm PO DAILY PRN PRN Reason: CONSTIPATION Levothyroxine Sodium (Synthroid) 100 mcg PO DAILY [facility] Magnesium Hydroxide (Milk Of Magnesia) 30 ml PO DAILY PRN PRN Reason: CONSTIPATION Meclizine HCl (Antivert) 25 mg PO TID PRN PRN Reason: DIZZINESS Last Admin: 11/27/19 08:48 Dose: 25 mg Documented by: Metoclopramide HCl (Reglan) 5 mg IVP BID PRN PRN Reason: NAUSEA AND VOMITING Last Admin: 11/27/19 09:42 Dose: 5 mg Documented by: Metoprolol Tartrate (Metoprolol Tartrate) 5 mg IV Q4H PRN PRN Reason: Heart rate above 120 Metoprolol Tartrate (Lopressor) 50 mg PO BID [facility] Last Admin: 11/28/19 08:19 Dose: 50 mg Documented by: Naloxone HCl (Narcan) 0.1 mg IVP Q2M PRN PRN Reason: OPIATERV Neomycin/Polymyxin/Bacitracin (Neosporin Oint Pkt) 1 applic TOPICAL BID [facility] Last Admin: 11/28/19 08:20 Dose: 1 applic Documented by: Ondansetron HCl (Zofran) 4 mg IVP Q6H PRN PRN Reason: NAUSEA Last Admin: 11/28/19 09:35 Dose: 4 mg Documented by: Pantoprazole Sodium (Protonix) 40 mg PO DAILY [facility] Last Admin: 11/28/19 08:19 Dose: 40 mg Documented by: Polyethylene Glycol (Miralax) 17 gm PO BID [facility] Last Admin: 11/28/19 08:21 Dose: 17 gm Documented by: Prednisone (Prednisone) 20 mg PO DAILY [facility] Last Admin: 11/28/19 08:20 Dose: 20 mg Documented by: Vitals/I&O/Wt Last Vital Signs Temp 98.1 F 11/28/19 07:00 Pulse 90 11/28/19 08:00 Resp 16 11/28/19 08:00 BP 104/71 11/28/19 08:00 Pulse Ox 93 11/28/19 08:00 11/27/19 11/28/19 11/28/19 22:59 06:59 14:59 Intake Total 300 / 670 150 / 820 250 / 250 Output Total 700 / 700 1600 / 2300 Balance -400 / -30 -1450 / -1480 250 / 250 Weight last 48 hrs Weight 192 lb 6.4 oz Weight 195 lb 14.4 oz Weight 195 lb 14.4 oz Weight 199 lb 9.6 oz Physical Exam Narrative: EXAM NARRATIVE: GENERAL: The patient is alert and oriented times three. Not in any acute distress. HEENT: Minimal pallor,no icterus or lymphadenopathy. The pupils are reactant to light. Oral cavity: There are no mucous membrane lesions. Funduscopic examination: NECK: Trachea appears to be central. No masses noted. No JVD or thyromegaly appreciated. No carotid bruit. RESPIRATORY: Chest is symmetrical. No intercostals muscle retraction or any accessory muscle activation. Sternotomy site looks okay with no hematoma bleeding Breath sounds are heard bilaterally. No rales or rhonchi heard. No evidence of any consolidation. BREASTS: Deferred. HEART: The heart sounds are normal. No S3 or S4. No severe murmurs. No pericardial rub ABDOMEN: No vessel pulsations or distention. No tenderness. No organomegaly appreciated. No abdominal bruit. Bowel sounds are normally heard. : Deferred. RECTAL: Deferred. LYMPHATIC: No lymphadenopathy noted in the neck or groin. EXTREMITIES: Trace edema of the lower estimated his with no cyanosis. MUSCULOSKELETAL: No acute joint deformities or swelling SKIN: There are no significant scars or skin rash noted. NEUROPSYCHIATRIC: The patient is alert and oriented x3. No focal motor deficits Urinary Catheter Management^: Mayorga Latex: Cath Placed During This Visit: no Data : 11/26/19 04:54 11/26/19 04:54 Other Labs: Laboratory Results - last 24 hr 11/27/19 11/27/19 11/27/19 11:39 17:33 21:49 POC Glucose 156 135 160 11/28/19 07:19 POC Glucose 98 A&P Assessment and plan (1) Postoperative atrial fibrillation: Currently the patient is in sinus rhythm. May continue on the amiodarone to 400 mg p.o. daily. Since the atrial fibrillation did not last for more than 24 hours, it may be appropriate to cut back on the dose of the Lovenox to the DVT prophylaxis dose. This was discussed with the Dr. Dias Status: Resolved Code(s): I97.89 - Other postprocedural complications and disorders of the circulatory system, not elsewhere classified; I48.91 - Unspecified atrial fibrillation (2) Status post aorto-coronary artery bypass graft: Patient status post two-vessel coronary bypass surgery. Clinically seems to be stable. Today's date. Status: Acute Code(s): Z95.1 - Presence of aortocoronary bypass graft (3) NSTEMI (non-ST elevated myocardial infarction): We will cut back on the dose of the aspirin to baby aspirin a day. Start on Plavix 75 mg p.o. daily. Discontinue the therapeutic dose of Lovenox and continue the DVT prophylaxis. May continue with other measures. Status: Acute Code(s): I21.4 - Non-ST elevation (NSTEMI) myocardial infarction (4) Chronic kidney disease: The kidney function is stable. We will continue monitoring the electrolytes. BMP today Status: Acute Qualifiers: Chronic kidney disease stage: stage 2 (mild) Qualified Code(s): N18.2 - Chronic kidney disease, stage 2 (mild) Code(s): N18.9 - Chronic kidney disease, unspecified (5) Accelerated essential hypertension: Currently she is normotensive. May continue on the current medications. Status: Chronic Code(s): I10 - Essential (primary) hypertension (6) Dyslipidemia: Continue on the current medications. So far she is tolerating the medications. Will do a liver profile today, because of the history of elevated liver enzymes Status: Acute Code(s): E78.5 - Hyperlipidemia, unspecified Additional A&P Information Postoperative anemia, stable Attestations Medical Necessity Statement*: Disposition as per Dr. Stanford/Arun Coding Level of Care Code Acute Vulnerability Assessment Analyst for g Fwd Diagnoses Postoperative atrial fibrillation I97.89; I48.91 Status post aorto-coronary artery bypass graft Z95.1 NSTEMI (non-ST elevated myocardial infarction) I21.4 Chronic kidney disease N18.2 Chronic kidney disease stage: stage 2 (mild) Accelerated essential hypertension I10 Dyslipidemia E78.5
[2019-11-28] MEDS: clopidogrel 75 mg Tablet PO (11:39)
[2019-11-28 11:45] LABS: Glucose Point of Care 137 mg/dL (70-110)
[2019-11-28 12:23] LABS: Alanine Aminotransferase 43 U/L (0-33); Albumin Level 3.1 g/dL (3.5-5.2); Alkaline Phosphatase 161 IU/L (35-105); Anion Gap 19.5 (5-19); Blood Urea Nitrogen 24 mg/dL (8-23); Calcium 9.4 mg/dL (8.5-10.5); Carbon Dioxide 31 mmol/L (22-29); Chloride 93 mmol/L (98-107); Creatinine Clr Calc Pharmacy 57.4187; Globulin 4.2 g/dL (1.3-4.6); Glucose 151 mg/dL (74-106); Potassium 3.5 mmol/L (3.5-5.1); Sodium 140 mmol/L (136-145); Total Bilirubin 0.8 mg/dL (0.15-1.2); Total Protein 7.3 g/dL (6.6-8.7)
[2019-11-28 13:38] LABS: Aspartate Amino Transferase 67 U/L (0-32)
[2019-11-28] MEDS: piperacillin-tazobactam 3.375 GM in sodium chloride 0.9% (plus) 50 ML IV (16:23)
[2019-11-28 17:36] LABS: Glucose Point of Care 148 mg/dL (70-110)
--- NOTE | 2019-11-28 19:25 | PC.NURSE ---
Report given to SHAWN Up. Pt moving around better. SHe walked out of the room twice today. She is much more agreeable about moving today. She is eating poorly , however it has improved today. Her Incision looked purulent, started on antibiotics. Dr Stanford changed the dressing , then changed the wound care orders. Her B/P improved,none over 150 SBP today. She has stayed in sinus rhythm. 900ml urine output.
--- NOTE | 2019-11-28 21:02 | PM.PN ---
Subjective Subjective: Interval history: Seen and examined this afternoon at ~3pm. Patient reports feeling stronger today. Poor appetite but attempting to eat. No NVD. States vision appears to be improving Medications: Reviewed: Yes Vitals/I&O/Wt Last Vital Signs Temp 98.3 F 11/28/19 18:00 Pulse 66 11/28/19 20:00 Resp 22 H 11/28/19 20:00 BP 140/68 11/28/19 20:00 Pulse Ox 97 11/28/19 20:00 11/28/19 11/28/19 11/28/19 06:59 14:59 22:59 Intake Total 150 / 820 450 / 450 650 / 1100 Output Total 1600 / 2300 900 / 900 Balance -1450 / -1480 450 / 450 -250 / 200 Weight last 48 hrs Weight 87.271 kg Weight 88.859 kg Weight 88.859 kg Weight 90.537 kg Physical Exam Narrative: EXAM NARRATIVE: GEN: Awake, alert and oriented, no acute distress, sitting in chair by bedside HEENT: SASCHA, CVS: S1S2 N RS: CTA B/L all areas Abd: Soft, nt/nd , bs+ EXPLOSIVE OPERATOR GRENADE: no focal neuro deficits Urinary Catheter Management^: Mayorga Latex: Cath Placed During This Visit: no Data : 11/26/19 04:54 11/28/19 11:45 A&P Assessment and plan (1) NSTEMI (non-ST elevated myocardial infarction): Status: Acute Code(s): I21.4 - Non-ST elevation (NSTEMI) myocardial infarction (2) CAD (coronary artery disease): Status: Acute Qualifiers: Coronary Disease-Associated Artery/Lesion type: ely [place]one artery [place] vs. transplanted heart: ely shoshone heart Associated angina: with unstable angina Qualified Code(s): I25.110 - Atherosclerotic heart disease of ely shosh[place] coronary artery with unstable angina pectoris Code(s): I25.10 - Atherosclerotic heart disease of [place] coronary artery without angina pectoris (3) Status post aorto-coronary artery bypass graft: Status: Acute Code(s): Z95.1 - Presence of aortocoronary bypass graft (4) Atrial fibrillation with RVR: Status: Resolved Code(s): I48.91 - Unspecified atrial fibrillation (5) Anemia: Status: Acute Qualifiers: Anemia type: other cause Other causes of anemia: acute posthemorrhagic Qualified Code(s): D62 - Acute posthemorrhagic anemia Code(s): D64.9 - Anemia, unspecified (6) Chronic kidney disease: Status: Acute Qualifiers: Chronic kidney disease stage: stage 2 (mild) Qualified Code(s): N18.2 - Chronic kidney disease, stage 2 (mild) Code(s): N18.9 - Chronic kidney disease, unspecified (7) Accelerated essential hypertension: Status: Chronic Code(s): I10 - Essential (primary) hypertension (8) Decreased visual acuity: Status: Resolved Code(s): H54.7 - Unspecified visual loss Additional A&P Information Presented with NSTEMI, found to have obstrcutive CAD, s/p CABG POD #9, slowly recovering NSTEMI: Currently on ASA, Plavix, metoprolol and atorvastatin. Last Echo on 11/17 with LVEF 55% without RWMA. Gr2 diastolic dysfunction s/p CABG for four vessel disease POD #9 Post op course notable for : -New onset A fib with RVR, currently on amiodarone 400mg po qd. Until earlier today, was on a/c with full dose lovenox, which has now been discontinued as a fib lasted <24 hrs. She will remain on DAPT with ASA + Plavix - Postoperatively she was assessed by tele-neurology for concern for possible CVA due to left gaze preference while still intubated, although initially seen focal abnormalities have resolved. May have been an e[isode of TIA, currently appropriately managed with ASA,plavix,statins. CT head without acute abnormalities - Anemia: Start po iron and folate - Marked deconditioning: Continue working with PT/OT. Arranging for placement at SNF for continued rehab -Fluid overload: currently undergoing diuresis with lasix. Cumulative net negative at 5.8L now. Will switch iv lasix to po 40mg BID - EDMUNDO on CKD: likely pre renal. Cr improved at 1.0 now -concern for early post op wound dehiscnece of sternal wound : restarted on zosyn and vancomycin today - Concern for adrenal insufficiency early in the post op course due to hypotension, extreme deconditioning. Will start tapering prednisone to 10mg qd -post op visual blurring: Patient latre reported that blurring has been ongoing for several months now. Appreciate opthalmology recommendations- visual changes attributable to cataract. No retinal abnormalities noted. Unlikly GCA. Does not need high dose steroids for the same. Hypertension: Better controlled with resuming amlodipine and increasing metoprolol dose Hypothyroidism: continue levothyroxine 100mcg DVT ppx: lovenox PUD ppx: protonix Full code DISPO: discharge to [place] likely early next week Attestations Medical Necessity Statement*: post op recovery from CABG, complicated post op course Coding Level of Care Code Acute Relay Checker for Chg Fwd Diagnoses NSTEMI (non-ST elevated myocardial infarction) I21.4 CAD (coronary artery disease) I25.110 Coronary Disease-Associated Artery/Lesion type: ely [place] artery [place] vs. transplanted heart: ely shosh[place] heart Associated angina: with unstable angina Status post aorto-coronary artery bypass graft Z95.1 Atrial fibrillation with RVR I48.91 Anemia D62 Anemia type: other cause Other causes of anemia: acute posthemorrhagic Chronic kidney disease N18.2 Chronic kidney disease stage: stage 2 (mild) Accelerated essential hypertension I10 Decreased visual acuity H54.7
[2019-11-28 21:14] LABS: Glucose Point of Care 150 mg/dL (70-110)
[2019-11-28] MEDS: atorvastatin 40 mg Tablet 20 MG PO (21:36)
[2019-11-29] VITALS (27 sets, daily range): BP systolic 119–164; BP diastolic 61–90; PULSE 54–94; RESP 13–26; TEMP 36.4–36.7; O2SAT 93–97
[2019-11-29 05:54] LABS: Basophils # 0.1 10^3/uL (0.0-0.1); Basophils % 0.7 %; Eosinophils % 0.4 %; Hemoglobin 10.5 g/dL (11.5-15.3); Lymphocytes # 1.4 10^3/uL (0.8-4.8); Lymphocytes % 15.1 %; Mean Corpuscular HGB Conc 31.8 g/dL (30.0-36.0); Mean Corpuscular Hemoglobin 29.2 pg (28.0-34.0); Mean Corpuscular Volume 91.7 fL (81-99); Mean Platelet Volume 11.6 fL (7.4-10.4); Monocytes # 0.6 10^3/uL (0.2-0.9); Monocytes % 6.6 %; Neutrophils # 6.6 10^3/uL (1.8-7.7); Neutrophils % 73.9 %; Nucleated Red Blood Cells % 0.2 %; Platelet Count 186 10^3/cmm (130-400); Red Cell Distribution Width 13.7 % (12.1-15.1)
[2019-11-29] MEDS: piperacillin-tazobactam 3.375 GM in sodium chloride 0.9% (plus) 50 ML IV ×3 (06:05→22:10)
[2019-11-29 06:15] LABS: Anion Gap 15.8 (5-19); Blood Urea Nitrogen 22 mg/dL (8-23); Calcium 8.6 mg/dL (8.5-10.5); Carbon Dioxide 34 mmol/L (22-29); Chloride 97 mmol/L (98-107); Glucose 104 mg/dL (74-106); Osmolality Calculated 295 mOsm/kg (285-295); Sodium 144 mmol/L (136-145)
[2019-11-29 06:30] LABS: Potassium 2.8 mmol/L (3.5-5.1)
[2019-11-29] MEDS: potassium chloride premix 40 MEQ/100 ML PREMIX 25 MEQ IV (07:22)
[2019-11-29] MEDS: lidocaine 1% INJ 20 mL 5 ML IV (07:22)
[2019-11-29 08:05] LABS: Glucose Point of Care 92 mg/dL (70-110)
[2019-11-29] MEDS: enoxaparin 40 mg/0.4 mL Syringe SUBCUT (09:05)
[2019-11-29] MEDS: predniSONE 20 mg Tablet 10 MG PO (09:06)
[2019-11-29] MEDS: iron polysaccharide complex 150 mg Capsule PO ×2 (09:06→18:39)
[2019-11-29] MEDS: clopidogrel 75 mg Tablet PO (09:06)
[2019-11-29] MEDS: pantoprazole DR 40 mg Tablet PO (09:06)
[2019-11-29] MEDS: amlodipine 10 mg Tablet PO (09:07)
[2019-11-29] MEDS: neomycin-poly-bacitracin oint 0.9 gm Pkt 1 APPLIC TOPICAL (09:07)
[2019-11-29] MEDS: aspirin 81 mg EC Tablet PO (09:07)
[2019-11-29] MEDS: metoprolol tartrate 50 mg Tablet PO ×2 (09:07→18:40)
[2019-11-29] MEDS: multivitamin therapeutic Tablet 1 TAB PO (09:07)
[2019-11-29] MEDS: amiodarone 200 mg Tablet 400 MG PO (09:07)
[2019-11-29] MEDS: FUROsemide 40 mg Tablet PO ×2 (09:13→18:39)
[2019-11-29] MEDS: acetaminophen 325 mg Tablet 650 MG PO ×2 (09:15→22:17)
--- NOTE | 2019-11-29 09:18 | PC.SOCIAL ---
IMM Update Pg 2 of IMM given and explained to patient who voiced understanding. Copy provided to patient.
[2019-11-29] MEDS: ondansetron 2 mg/ML SDV 2 mL 4 MG IVP (09:32)
[2019-11-29] MEDS: docusate sodium 100 mg Capsule PO (09:42)
[2019-11-29] MEDS: meclizine 25 mg tablet PO (09:56)
--- NOTE | 2019-11-29 10:08 | PC.NURSE ---
Pt nauseated. PT with her. ZOfran admin. Oral morning meds being held until nausea resolves. RIght AC Iv infiltrated. Very tender, puffy and reddened. Removed. Cath tip intact. Hot pack for comfort.
--- NOTE | 2019-11-29 10:14 | PM.PN ---
Subjective Subjective: Interval history: Patient complaining of nausea today. She has not yet received her morning medications including p.o. Lasix because of the nausea. She feels that meclizine in the past was helping her with her nausea as well. She denies any current complaints of chest pain dyspnea palpitations. She was able to eat dinner overnight however now is nauseous. Receiving potassium supplementation by IV. Medications: Reviewed: Yes Vitals/I&O/Wt Last Vital Signs Temp 98.0 F 11/29/19 05:00 Pulse 78 11/29/19 08:19 Resp 26 H 11/29/19 06:00 BP 153/77 11/29/19 06:00 Pulse Ox 96 11/29/19 08:19 11/28/19 11/29/19 11/29/19 22:59 06:59 14:59 Intake Total 750 / 1200 Output Total 900 / 900 950 / 1850 Balance -150 / 300 -950 / -650 Weight last 48 hrs Weight 87.861 kg Weight 87.271 kg Physical Exam Narrative: EXAM NARRATIVE: GEN: Awake, alert and oriented, no acute distress, sitting in chair by bedside HEENT: SASCHA, CVS: S1S2 N RS: CTA B/L all areas Abd: Soft, nt/nd , bs+ MEDICAL RECEPTIONIST MEDICAL ASSISTANT: no focal neuro deficits Extremities bilateral 2+ pitting edema. Urinary Catheter Management^: Guy Latex: Cath Placed During This Visit: no Data : 11/29/19 05:43 11/29/19 05:43 A&P Assessment and plan (1) NSTEMI (non-ST elevated myocardial infarction): Status: Acute Code(s): I21.4 - Non-ST elevation (NSTEMI) myocardial infarction (2) CAD (coronary artery disease): Status: Acute Qualifiers: Coronary Disease-Associated Artery/Lesion type: [place] artery [place] vs. transplanted heart: [place] heart Associated angina: with unstable angina Qualified Code(s): I25.110 - Atherosclerotic heart disease of [place] coronary artery with unstable angina pectoris Code(s): I25.10 - Atherosclerotic heart disease of [place] coronary artery without angina pectoris (3) Status post aorto-coronary artery bypass graft: Status: Acute Code(s): Z95.1 - Presence of aortocoronary bypass graft (4) Atrial fibrillation with RVR: Transitioned to oral amiodarone, continue metoprolol. In SR. Status: Resolved Code(s): I48.91 - Unspecified atrial fibrillation (5) Anemia: Status: Acute Qualifiers: Anemia type: other cause Other causes of anemia: acute posthemorrhagic Qualified Code(s): D62 - Acute posthemorrhagic anemia Code(s): D64.9 - Anemia, unspecified (6) Chronic kidney disease: Status: Acute Qualifiers: Chronic kidney disease stage: stage 2 (mild) Qualified Code(s): N18.2 - Chronic kidney disease, stage 2 (mild) Code(s): N18.9 - Chronic kidney disease, unspecified (7) Accelerated essential hypertension: Status: Chronic Code(s): I10 - Essential (primary) hypertension (8) Decreased visual acuity: Appreciate ophthalmology consult. No acute interventions recommended at this time. Status: Resolved Code(s): H54.7 - Unspecified visual loss Additional A&P Information Presented with NSTEMI, found to have obstrcutive CAD, s/p CABG POD #9, slowly recovering NSTEMI: Currently on ASA, Plavix, metoprolol and atorvastatin. Last Echo on 11/17 with LVEF 55% without RWMA. Gr2 diastolic dysfunction s/p CABG for four vessel disease POD #10 Post op course notable for : -New onset A fib with RVR, currently on amiodarone 400mg po qd. Until 11/29, was on a/c with full dose lovenox, which has now been discontinued as a fib lasted <24 hrs. She will remain on DAPT with ASA + Plavix - Postoperatively she was assessed by tele-neurology for concern for possible CVA due to left gaze preference while still intubated, although initially seen focal abnormalities have resolved. May have been an episode of TIA, currently appropriately managed with ASA,plavix,statins. CT head without acute abnormalities - Anemia: Started po iron and folate - Marked deconditioning: Continue working with PT/OT. Arranging for placement at SNF for continued rehab -Fluid overload: currently undergoing diuresis with lasix. Cumulative net negative at 5.8L now. Will switch iv lasix to po 40mg BID - EDMUNDO on CKD: likely pre renal. Cr improved at 1.1 now -concern for early post op wound dehiscnece of sternal wound : restarted on zosyn and vancomycin today - Concern for adrenal insufficiency early in the post op course due to hypotension, extreme deconditioning. Will start tapering prednisone to 10mg qd and then to 5mg qd -post op visual blurring: Patient later reported that blurring has been ongoing for several months now. Appreciate opthalmology recommendations- visual changes attributable to cataract. No retinal abnormalities noted. Unlikly GCA. Does not need high dose steroids for the same. -post op low grade fever: now resolved. Likely 2/2 atelactasis. Encourage Incentive spirometry. Hypertension: Better controlled with resuming amlodipine and increasing metoprolol dose Hypothyroidism: continue levothyroxine 100mcg nausea: Add regaln after checking qtc interval if <500msec. resume meclizine. Good bowel sounds, passing flatus, doubt SBO. Has appetite and wants to try more foods- will advance diet to full liquid. Remove Guy DVT ppx: lovenox PUD ppx: protonix Full code DISPO: discharge to [place] likely early next week Attestations Medical Necessity Statement*: Post op management from CABG, slowly recovering from complicated post op course Coding Level of Care Code Acute Sewage Plant Operator for Chg Fwd Diagnoses NSTEMI (non-ST elevated myocardial infarction) I21.4 CAD (coronary artery disease) I25.110 Coronary Disease-Associated Artery/Lesion type: [place] artery [place] vs. transplanted heart: [place] heart Associated angina: with unstable angina Status post aorto-coronary artery bypass graft Z95.1 Atrial fibrillation with RVR I48.91 Anemia D62 Anemia type: other cause Other causes of anemia: acute posthemorrhagic Chronic kidney disease N18.2 Chronic kidney disease stage: stage 2 (mild) Accelerated essential hypertension I10 Decreased visual acuity H54.7
--- NOTE | 2019-11-29 10:59 | P.PN_ITS ---
Subjective Subjective: Interval history: She has nausea this morning. She thinks shortness of breath is better. Rate is under control. She has hypokalemia replaced by potassium. Medications: Reviewed: Yes Medication Review Details: C Current Medications Acetaminophen (Tylenol) 650 mg PO Q4H PRN PRN Reason: MILD PAIN OR INCREASE TEMP Last Admin: 11/20/19 15:31 Dose: 650 mg Documented by: Hydrocodone Bitart/Acetaminophen ([place] 5-325 Mg) 1 tab PO Q4H PRN PRN Reason: MODERATE PAIN Last Admin: 11/28/19 01:16 Dose: 1 tab Documented by: Amiodarone HCl (Cordarone) 400 mg PO DAILY [facility] Last Admin: 11/28/19 08:20 Dose: 400 mg Documented by: Amlodipine Besylate (Norvasc) 10 mg PO DAILY [facility] Last Admin: 11/28/19 08:19 Dose: 10 mg Documented by: Aspirin (Aspirin Ec) 325 mg PO DAILY [facility] Last Admin: 11/28/19 08:19 Dose: 325 mg Documented by: Atorvastatin Calcium (Lipitor) 20 mg PO BEDTIME [facility] Last Admin: 11/27/19 21:51 Dose: 20 mg Documented by: Bisacodyl (Dulcolax) 10 mg PO DAILY PRN PRN Reason: CONSTIPATION Last Admin: 11/24/19 16:46 Dose: 10 mg Documented by: Bisacodyl (Dulcolax) 10 mg PO DAILY PRN PRN Reason: CONSTIPATION Dextrose (D50w) 25 ml IVP ONCE PRN; Protocol PRN Reason: hypoglycemia protocol Dextrose (D50w) 50 ml IVP PRN PRN; Protocol PRN Reason: hypoglycemia protocol Docusate Sodium (Colace) 100 mg PO DAILY PRN PRN Reason: CONSTIPATION Enoxaparin Sodium (Lovenox) 95 mg SUBCUT Q12H [facility] Last Admin: 11/28/19 08:20 Dose: 95 mg Documented by: Epinephrine (Vaponephrine) 0.5 ml INHALATION Q6H.RESPIRATORY PRN PRN Reason: Stridor Furosemide (Lasix) 40 mg IVP BID [facility] Last Admin: 11/28/19 08:20 Dose: 40 mg Documented by: Glucagon (Glucagen) 1 mg IM ONCE PRN; Protocol PRN Reason: Adult Acute Hypoglycemia Prot Hydralazine HCl (Apresoline) 5 mg IVP Q4H PRN PRN Reason: HYPERTENSION Last Admin: 11/27/19 23:05 Dose: 5 mg Documented by: Labetalol HCl 300 mg/ Sodium (Chloride) 300 mls @ 30 mls/hr IV .Q10H PRN; Protocol PRN Reason: Systolic BP > 140 mmHg Insulin Human Regular 250 unit (/ Sodium Chloride) 252.5 mls @ 0 mls/hr IV .Q0M [facility]; Protocol Amiodarone HCl 900 mg/Dextrose/ IV Miscellaneous Supplies 518 mls @ 0 mls/hr IV .Q0M [facility]; Protocol Last Titration: 11/22/19 18:22 Dose: Infused Documented by: Dextrose (D5w) 500 mls @ 100 mls/hr IV ONCE PRN; Protocol PRN Reason: Adult Acute Hypoglycemia Prot Insulin Aspart (Novolog) 0 unit SUBCUT WM&BEDTIME [facility]; Protocol Last Admin: 11/28/19 07:23 Dose: Not Given Documented by: Labetalol HCl (Trandate) 5 mg IVP Q6H PRN PRN Reason: HYPERTENSION Last Admin: 11/26/19 07:55 Dose: 5 mg Documented by: Lactulose (Constulose) 10 gm PO DAILY PRN PRN Reason: CONSTIPATION Levothyroxine Sodium (Synthroid) 100 mcg PO DAILY [facility] Magnesium Hydroxide (Milk Of Magnesia) 30 ml PO DAILY PRN PRN Reason: CONSTIPATION Meclizine HCl (Antivert) 25 mg PO TID PRN PRN Reason: DIZZINESS Last Admin: 11/27/19 08:48 Dose: 25 mg Documented by: Metoclopramide HCl (Reglan) 5 mg IVP BID PRN PRN Reason: NAUSEA AND VOMITING Last Admin: 11/27/19 09:42 Dose: 5 mg Documented by: Metoprolol Tartrate (Metoprolol Tartrate) 5 mg IV Q4H PRN PRN Reason: Heart rate above 120 Metoprolol Tartrate (Lopressor) 50 mg PO BID [facility] Last Admin: 11/28/19 08:19 Dose: 50 mg Documented by: Naloxone HCl (Narcan) 0.1 mg IVP Q2M PRN PRN Reason: OPIATERV Neomycin/Polymyxin/Bacitracin (Neosporin Oint Pkt) 1 applic TOPICAL BID [facility] Last Admin: 11/28/19 08:20 Dose: 1 applic Documented by: Ondansetron HCl (Zofran) 4 mg IVP Q6H PRN PRN Reason: NAUSEA Last Admin: 11/28/19 09:35 Dose: 4 mg Documented by: Pantoprazole Sodium (Protonix) 40 mg PO DAILY [facility] Last Admin: 11/28/19 08:19 Dose: 40 mg Documented by: Polyethylene Glycol (Miralax) 17 gm PO BID [facility] Last Admin: 11/28/19 08:21 Dose: 17 gm Documented by: Prednisone (Prednisone) 20 mg PO DAILY [facility] Last Admin: 11/28/19 08:20 Dose: 20 mg Documented by: Vitals/I&O/Wt Last Vital Signs Temp 97.8 F 11/29/19 08:00 Pulse 85 11/29/19 10:00 Resp 22 H 11/29/19 10:00 BP 148/90 11/29/19 10:00 Pulse Ox 93 11/29/19 09:00 11/28/19 11/29/19 11/29/19 22:59 06:59 14:59 Intake Total 750 / 1200 250 / 250 Output Total 900 / 900 950 / 1850 60 / 60 Balance -150 / 300 -950 / -650 190 / 190 Weight last 48 hrs Weight 193 lb 11.2 oz Weight 192 lb 6.4 oz Physical Exam Narrative: EXAM NARRATIVE: GENERAL: Patient is alert, awake and oriented x3. She appears to be fatigued NECK: No jugular vein distension. HEENT: No cyanosis. No icterus. No pallor. HEART: Regular S1 and S2. No murmur, rub or gallop. LUNGS: Clear to auscultate bilaterally. ABDOMEN: Soft, nontender and nondistended. Positive bowel sounds. No guarding, rebound or tenderness. CENTRAL NERVOUS SYSTEM: Grossly nonfocal. EXTREMITIES: Lower extremities with 1+ edema on the left leg. Urinary Catheter Management^: Mayorga Latex: Cath Placed During This Visit: no Data : 11/29/19 05:43 11/29/19 05:43 A&P Assessment and plan (1) Postoperative atrial fibrillation: Patient is in sinus rhythm. Continue current regimen without change Status: Resolved Code(s): I97.89 - Other postprocedural complications and disorders of the circulatory system, not elsewhere classified; I48.91 - Unspecified atrial fibrillation (2) Status post aorto-coronary artery bypass graft: Stable from a coronary artery disease/bypass perspective. Continue to manage during recovery with optimization of medicine Status: Acute Code(s): Z95.1 - Presence of aortocoronary bypass graft (3) NSTEMI (non-ST elevated myocardial infarction): Stable post CABG. Continue current management Status: Acute Code(s): I21.4 - Non-ST elevation (NSTEMI) myocardial infarction (4) Chronic kidney disease: Stable with hypokalemia. Potassium is being replaced. Status: Acute Qualifiers: Chronic kidney disease stage: stage 2 (mild) Qualified Code(s): N18.2 - Chronic kidney disease, stage 2 (mild) Code(s): N18.9 - Chronic kidney disease, unspecified (5) Accelerated essential hypertension: Reasonably well-controlled Status: Chronic Code(s): I10 - Essential (primary) hypertension (6) Dyslipidemia: On statin. We will continue Status: Acute Code(s): E78.5 - Hyperlipidemia, unspecified Additional A&P Information Postoperative anemia, stable Attestations Medical Necessity Statement*: Require continuation hospitalization for above defined care. Coding Level of Care Code Established Pt Acute Pipeline Inspector for Hillary Lambert Patient Type Established History Detailed Exam Detailed Medical Decision Making Moderate Complexity Diagnoses Postoperative atrial fibrillation I97.89; I48.91 Status post aorto-coronary artery bypass graft Z95.1 NSTEMI (non-ST elevated myocardial infarction) I21.4 Chronic kidney disease N18.2 Chronic kidney disease stage: stage 2 (mild) Accelerated essential hypertension I10 Dyslipidemia E78.5
--- NOTE | 2019-11-29 11:17 | ECG_ITS ---
Measurements Intervals [place] Rate: 59 P: -3 MO: 135 QRS: 16 QRSD: 140 T: -1 QT: 456 QTc: 453 SINUS BRADYCARDIA RIGHT BUNDLE BRANCH BLOCK [120+ ms QRS DURATION, UPRIGHT V1, 40+ ms S IN I/aVL/V4/V5/V6] MODERATE T-WAVE ABNORMALITY, CONSIDER LATERAL ISCHEMIA [-0.1+ mV T WAVE IN I/aVL/V5/V6] Compared to ECG 11/21/2019 02:05:25 Right bundle-branch block now present T-wave abnormality now present Possible ischemia now present Sinus rhythm no longer present Intraventricular conduction delay no longer present Electronically Signed On 11-29-2019 18:03:35 MINIATURE SET CONSTRUCTOR by Navid Stewart M.D. [email or web address]
[2019-11-29 11:45] LABS: Glucose Point of Care 192 mg/dL (70-110)
[2019-11-29 17:33] LABS: Glucose Point of Care 146 mg/dL (70-110)
--- NOTE | 2019-11-29 18:59 | PC.NURSE ---
Report given to SHAW[facility] Up. Pt ambulated the most today, than she has the previous week. She can get out of the chair easier. Dressing changes have been changes, using Opitfoam due to her sensitive skin. Dr Dias wants her groin folds, and axillia cleaned with Betasept, but try a skin test prior to make sure she can tolerate it. A& d with zinc oxide to other areas. Nystatin to groin fold, continue with the inter dry. Meclizine seems to help in the morning, she was nauseated again this morning , same time. RIght AC Iv site non-tender and normal skin colored after KCL IV infiltrated today. She had a BM. and 450ml output.
[2019-11-29] MEDS: HYDROcodone-acetaminophen 5-325 mg Tablet 1 TAB PO (19:28)
[2019-11-29 21:40] LABS: Glucose Point of Care 219 mg/dL (70-110)
[2019-11-29] MEDS: chlorhexidine gluconate 4% Btl 118 mL 1 APPLIC TOPICAL (22:08)
[2019-11-29] MEDS: atorvastatin 40 mg Tablet 20 MG PO (22:09)
[2019-11-29] MEDS: nystatin powder 15 gm Btl 1 APPLIC TOPICAL (22:10)
[2019-11-30] VITALS (22 sets, daily range): BP systolic 113–174; BP diastolic 58–95; PULSE 56–74; RESP 14–23; TEMP 36.4–36.6; O2SAT 90–98
[2019-11-30] MEDS: acetaminophen 325 mg Tablet 650 MG PO ×2 (03:14→08:26)
--- NOTE | 2019-11-30 04:37 | PC.NURSE ---
Pt went to sleep with headache 06/14 and woke with headache 08/14. 2 doses of tylenol and 1 dose of hydrocodone administered to relieve pain through shift. Stroke nurse @ bedside to assess: NIHSSS 1. Physician notified.
[2019-11-30 04:38] LABS: Basophils # 0.1 10^3/uL (0.0-0.1); Basophils % 0.6 %; Eosinophils # 0.1 10^3/uL (0.0-0.8); Eosinophils % 0.5 %; Hemoglobin 11.9 g/dL (11.5-15.3); Lymphocytes # 1.9 10^3/uL (0.8-4.8); Lymphocytes % 16.7 %; Mean Corpuscular HGB Conc 30.5 g/dL (30.0-36.0); Mean Corpuscular Hemoglobin 30.1 pg (28.0-34.0); Mean Corpuscular Volume 98.5 fL (81-99); Monocytes # 0.7 10^3/uL (0.2-0.9); Monocytes % 6.3 %; Neutrophils # 8.4 10^3/uL (1.8-7.7); Neutrophils % 72.6 %; Nucleated Red Blood Cells % 0 %; Platelet Count 204 10^3/cmm (130-400); Red Blood Count 3.96 10^6/uL (4.1-5.3); White Blood Count 11.6 10^3/uL (4.0-10.0)
[2019-11-30 04:55] LABS: Alanine Aminotransferase 36 U/L (0-33); Albumin Level 3.1 g/dL (3.5-5.2); Alkaline Phosphatase 130 IU/L (35-105); Anion Gap 16.5 (5-19); Aspartate Amino Transferase 36 U/L (0-32); Blood Urea Nitrogen 24 mg/dL (8-23); Calcium 9.1 mg/dL (8.5-10.5); Carbon Dioxide 30 mmol/L (22-29); Chloride 100 mmol/L (98-107); Globulin 3.7 g/dL (1.3-4.6); Glucose 126 mg/dL (74-106); Potassium 3.5 mmol/L (3.5-5.1); Sodium 143 mmol/L (136-145); Total Bilirubin 0.7 mg/dL (0.15-1.2); Total Protein 6.8 g/dL (6.6-8.7)
[2019-11-30] MEDS: acetaminophen-codeine 120-12 mg/5 mL UDC 2.5 ML PO (04:59)
[2019-11-30] MEDS: piperacillin-tazobactam 3.375 GM in sodium chloride 0.9% (plus) 50 ML IV ×3 (06:10→22:41)
[2019-11-30] MEDS: multivitamin therapeutic Tablet 1 TAB PO (09:08)
[2019-11-30] MEDS: pantoprazole DR 40 mg Tablet PO (09:08)
[2019-11-30] MEDS: clopidogrel 75 mg Tablet PO (09:08)
[2019-11-30] MEDS: aspirin 81 mg EC Tablet PO (09:08)
[2019-11-30] MEDS: amiodarone 200 mg Tablet 400 MG PO (09:08)
[2019-11-30] MEDS: amlodipine 10 mg Tablet PO (09:08)
[2019-11-30] MEDS: metoprolol tartrate 50 mg Tablet PO ×2 (09:08→19:18)
[2019-11-30] MEDS: enoxaparin 40 mg/0.4 mL Syringe SUBCUT (09:08)
[2019-11-30] MEDS: docusate sodium 100 mg Capsule PO (09:08)
[2019-11-30] MEDS: iron polysaccharide complex 150 mg Capsule PO ×2 (09:09→19:18)
[2019-11-30 09:49] LABS: Glucose Point of Care 88 mg/dL (70-110)
[2019-11-30 12:10] LABS: Glucose Point of Care 125 mg/dL (70-110)
--- NOTE | 2019-11-30 13:09 | PM.PN ---
Subjective Subjective: Interval history: Continues to feel improved. Feels stronger today. Working with OT when seen. No further nausea, appetite poor. Cr trending up to 1.5 Medications: Reviewed: Yes Medication Review Details: C Current Medications Acetaminophen (Tylenol) 650 mg PO Q4H PRN PRN Reason: MILD PAIN OR INCREASE TEMP Last Admin: 11/20/19 15:31 Dose: 650 mg Documented by: Hydrocodone Bitart/Acetaminophen ([place] 5-325 Mg) 1 tab PO Q4H PRN PRN Reason: MODERATE PAIN Last Admin: 11/28/19 01:16 Dose: 1 tab Documented by: Amiodarone HCl (Cordarone) 400 mg PO DAILY [facility] Last Admin: 11/28/19 08:20 Dose: 400 mg Documented by: Amlodipine Besylate (Norvasc) 10 mg PO DAILY [facility] Last Admin: 11/28/19 08:19 Dose: 10 mg Documented by: Aspirin (Aspirin Ec) 325 mg PO DAILY [facility] Last Admin: 11/28/19 08:19 Dose: 325 mg Documented by: Atorvastatin Calcium (Lipitor) 20 mg PO BEDTIME [facility] Last Admin: 11/27/19 21:51 Dose: 20 mg Documented by: Bisacodyl (Dulcolax) 10 mg PO DAILY PRN PRN Reason: CONSTIPATION Last Admin: 11/24/19 16:46 Dose: 10 mg Documented by: Bisacodyl (Dulcolax) 10 mg PO DAILY PRN PRN Reason: CONSTIPATION Dextrose (D50w) 25 ml IVP ONCE PRN; Protocol PRN Reason: hypoglycemia protocol Dextrose (D50w) 50 ml IVP PRN PRN; Protocol PRN Reason: hypoglycemia protocol Docusate Sodium (Colace) 100 mg PO DAILY PRN PRN Reason: CONSTIPATION Enoxaparin Sodium (Lovenox) 95 mg SUBCUT Q12H [facility] Last Admin: 11/28/19 08:20 Dose: 95 mg Documented by: Epinephrine (Vaponephrine) 0.5 ml INHALATION Q6H.RESPIRATORY PRN PRN Reason: Stridor Furosemide (Lasix) 40 mg IVP BID [facility] Last Admin: 11/28/19 08:20 Dose: 40 mg Documented by: Glucagon (Glucagen) 1 mg IM ONCE PRN; Protocol PRN Reason: Adult Acute Hypoglycemia Prot Hydralazine HCl (Apresoline) 5 mg IVP Q4H PRN PRN Reason: HYPERTENSION Last Admin: 11/27/19 23:05 Dose: 5 mg Documented by: Labetalol HCl 300 mg/ Sodium (Chloride) 300 mls @ 30 mls/hr IV .Q10H PRN; Protocol PRN Reason: Systolic BP > 140 mmHg Insulin Human Regular 250 unit (/ Sodium Chloride) 252.5 mls @ 0 mls/hr IV .Q0M [facility]; Protocol Amiodarone HCl 900 mg/Dextrose/ IV Miscellaneous Supplies 518 mls @ 0 mls/hr IV .Q0M [facility]; Protocol Last Titration: 11/22/19 18:22 Dose: Infused Documented by: Dextrose (D5w) 500 mls @ 100 mls/hr IV ONCE PRN; Protocol PRN Reason: Adult Acute Hypoglycemia Prot Insulin Aspart (Novolog) 0 unit SUBCUT WM&BEDTIME [facility]; Protocol Last Admin: 11/28/19 07:23 Dose: Not Given Documented by: Labetalol HCl (Trandate) 5 mg IVP Q6H PRN PRN Reason: HYPERTENSION Last Admin: 11/26/19 07:55 Dose: 5 mg Documented by: Lactulose (Constulose) 10 gm PO DAILY PRN PRN Reason: CONSTIPATION Levothyroxine Sodium (Synthroid) 100 mcg PO DAILY [facility] Magnesium Hydroxide (Milk Of Magnesia) 30 ml PO DAILY PRN PRN Reason: CONSTIPATION Meclizine HCl (Antivert) 25 mg PO TID PRN PRN Reason: DIZZINESS Last Admin: 11/27/19 08:48 Dose: 25 mg Documented by: Metoclopramide HCl (Reglan) 5 mg IVP BID PRN PRN Reason: NAUSEA AND VOMITING Last Admin: 11/27/19 09:42 Dose: 5 mg Documented by: Metoprolol Tartrate (Metoprolol Tartrate) 5 mg IV Q4H PRN PRN Reason: Heart rate above 120 Metoprolol Tartrate (Lopressor) 50 mg PO BID [facility] Last Admin: 11/28/19 08:19 Dose: 50 mg Documented by: Naloxone HCl (Narcan) 0.1 mg IVP Q2M PRN PRN Reason: OPIATERV Neomycin/Polymyxin/Bacitracin (Neosporin Oint Pkt) 1 applic TOPICAL BID [facility] Last Admin: 11/28/19 08:20 Dose: 1 applic Documented by: Ondansetron HCl (Zofran) 4 mg IVP Q6H PRN PRN Reason: NAUSEA Last Admin: 11/28/19 09:35 Dose: 4 mg Documented by: Pantoprazole Sodium (Protonix) 40 mg PO DAILY [facility] Last Admin: 11/28/19 08:19 Dose: 40 mg Documented by: Polyethylene Glycol (Miralax) 17 gm PO BID [facility] Last Admin: 11/28/19 08:21 Dose: 17 gm Documented by: Prednisone (Prednisone) 20 mg PO DAILY [facility] Last Admin: 11/28/19 08:20 Dose: 20 mg Documented by: Vitals/I&O/Wt Last Vital Signs Temp 97.9 F 11/30/19 10:00 Pulse 62 11/30/19 10:00 Resp 18 11/30/19 10:00 BP 126/76 11/30/19 10:00 Pulse Ox 97 11/30/19 10:00 11/29/19 11/30/19 11/30/19 22:59 06:59 14:59 Intake Total 450 / 1250 550 / 1800 170 / 170 Output Total 450 / 510 950 / 1460 Balance 0 / 740 -400 / 340 170 / 170 Weight last 48 hrs Weight 86.409 kg Weight 87.861 kg Physical Exam Narrative: EXAM NARRATIVE: GEN: Awake, alert and oriented, no acute distress, sitting in chair by bedside, working with OT HEENT: SASCHA, CVS: S1S2 N Chest: Dressing removed. Mild separation of incision site [facility] through. Fluctauance noted yesetrday left of the incision, improving today. Minimal serosanginous discharge expressed. 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 Urinary Catheter Management^: Guy Latex: Cath Placed During This Visit: no Data : 11/30/19 04:29 11/30/19 04:29 Micro: Microbiology 11/29/19 17:35 Gram Stain - Final Chest A&P Assessment and plan (1) NSTEMI (non-ST elevated myocardial infarction): Status: Acute Code(s): I21.4 - Non-ST elevation (NSTEMI) myocardial infarction (2) CAD (coronary artery disease): Status: Acute Qualifiers: Coronary Disease-Associated Artery/Lesion type: [place] artery [place] vs. transplanted heart: [place] heart Associated angina: with unstable angina Qualified Code(s): I25.110 - Atherosclerotic heart disease of [place] coronary artery with unstable angina pectoris Code(s): I25.10 - Atherosclerotic heart disease of [place] coronary artery without angina pectoris (3) Status post aorto-coronary artery bypass graft: Status: Acute Code(s): Z95.1 - Presence of aortocoronary bypass graft (4) Atrial fibrillation with RVR: Transitioned to oral amiodarone, continue metoprolol. In SR. Status: Resolved Code(s): I48.91 - Unspecified atrial fibrillation (5) Anemia: Status: Acute Qualifiers: Anemia type: other cause Other causes of anemia: acute posthemorrhagic Qualified Code(s): D62 - Acute posthemorrhagic anemia Code(s): D64.9 - Anemia, unspecified (6) Chronic kidney disease: Status: Acute Qualifiers: Chronic kidney disease stage: stage 2 (mild) Qualified Code(s): N18.2 - Chronic kidney disease, stage 2 (mild) Code(s): N18.9 - Chronic kidney disease, unspecified (7) Accelerated essential hypertension: Status: Chronic Code(s): I10 - Essential (primary) hypertension (8) Decreased visual acuity: Appreciate ophthalmology consult. No acute interventions recommended at this time. Status: Resolved Code(s): H54.7 - Unspecified visual loss Additional A&P Information Presented with NSTEMI, found to have obstrcutive CAD, s/p CABG POD #9, slowly recovering NSTEMI: Currently on ASA, Plavix, metoprolol and atorvastatin. Last Echo on 11/17 with LVEF 55% without RWMA. Gr2 diastolic dysfunction s/p CABG for four vessel disease POD #11 Post op course notable for : -New onset A fib with RVR, currently on amiodarone 400mg po qd. Currently in sinus rhythm. HR well controlled. Until 11/29, was on a/c with full dose lovenox, which has now been discontinued as a fib lasted <24 hrs. She will remain on DAPT with ASA + Plavix - Postoperatively she was assessed by tele-neurology for concern for possible CVA due to left gaze preference while still intubated, although initially seen focal abnormalities have resolved. May have been an episode of TIA, currently appropriately managed with ASA,plavix,statins. CT head without acute abnormalities - Anemia: Started po iron and folate - Marked deconditioning: Continue working with PT/OT. Arranging for placement at SNF for continued rehab -Fluid overload: currently undergoing diuresis with lasix. Cumulative net negative at 6.4L now. Will hold lasix today in view of EDMUNDO to 1.5 - EDMUNDO on CKD: likely pre renal. Cr improving but since yesetrday creeping up to 1.5. WIll hold lasix today. Encourage oral intake. -concern for early post op wound dehiscnece of sternal wound : restarted on zosyn and vancomycin. Minimal area of fluctuance noted to the left of sternal, serosanginous fluid expressed and sent for cultures. - Concern for adrenal insufficiency early in the post op course due to hypotension, extreme deconditioning. Will start tapering prednisone 5mg qd -post op visual blurring: Patient later reported that blurring has been ongoing for several months now. Appreciate opthalmology recommendations- visual changes attributable to cataract. No retinal abnormalities noted. Unlikly GCA. Does not need high dose steroids for the same. -post op low grade fever: now resolved. Likely 2/2 atelactasis. Encourage Incentive spirometry. Hypertension: Better controlled with resuming amlodipine and increasing metoprolol dose Hypothyroidism: continue levothyroxine 100mcg Good bowel sounds, passing flatus, doubt SBO. Remove Guy DVT ppx: lovenox PUD ppx: protonix Full code DISPO: discharge to CT likely early next week Attestations Medical Necessity Statement*: post op CABG monitoring, deconditioing, minimal wound dehiscence Coding Level of Care Code Acute Fur Polisher for Chg Fwd Diagnoses NSTEMI (non-ST elevated myocardial infarction) I21.4 CAD (coronary artery disease) I25.110 Coronary Disease-Associated Artery/Lesion type: [place] artery [place] vs. transplanted heart: [place] heart Associated angina: with unstable angina Status post aorto-coronary artery bypass graft Z95.1 Atrial fibrillation with RVR I48.91 Anemia D62 Anemia type: other cause Other causes of anemia: acute posthemorrhagic Chronic kidney disease N18.2 Chronic kidney disease stage: stage 2 (mild) Accelerated essential hypertension I10 Decreased visual acuity H54.7
[2019-11-30] MEDS: predniSONE 20 mg Tablet 10 MG PO (15:23)
[2019-11-30] MEDS: nystatin powder 15 gm Btl 1 APPLIC TOPICAL ×2 (15:23→22:52)
[2019-11-30] MEDS: HYDROcodone-acetaminophen 5-325 mg Tablet PO ×2 (15:32→22:00)
--- NOTE | 2019-11-30 16:49 | P.PN_ITS ---
Subjective Subjective: Interval history: She is complaining of neck pain. Creatinine has worsened. Medications: Reviewed: Yes Medication Review Details: C Current Medications Acetaminophen (Tylenol) 650 mg PO Q4H PRN PRN Reason: MILD PAIN OR INCREASE TEMP Last Admin: 11/20/19 15:31 Dose: 650 mg Documented by: Hydrocodone Bitart/Acetaminophen ([place] 5-325 Mg) 1 tab PO Q4H PRN PRN Reason: MODERATE PAIN Last Admin: 11/28/19 01:16 Dose: 1 tab Documented by: Amiodarone HCl (Cordarone) 400 mg PO DAILY [facility] Last Admin: 11/28/19 08:20 Dose: 400 mg Documented by: Amlodipine Besylate (Norvasc) 10 mg PO DAILY [facility] Last Admin: 11/28/19 08:19 Dose: 10 mg Documented by: Aspirin (Aspirin Ec) 325 mg PO DAILY [facility] Last Admin: 11/28/19 08:19 Dose: 325 mg Documented by: Atorvastatin Calcium (Lipitor) 20 mg PO BEDTIME [facility] Last Admin: 11/27/19 21:51 Dose: 20 mg Documented by: Bisacodyl (Dulcolax) 10 mg PO DAILY PRN PRN Reason: CONSTIPATION Last Admin: 11/24/19 16:46 Dose: 10 mg Documented by: Bisacodyl (Dulcolax) 10 mg PO DAILY PRN PRN Reason: CONSTIPATION Dextrose (D50w) 25 ml IVP ONCE PRN; Protocol PRN Reason: hypoglycemia protocol Dextrose (D50w) 50 ml IVP PRN PRN; Protocol PRN Reason: hypoglycemia protocol Docusate Sodium (Colace) 100 mg PO DAILY PRN PRN Reason: CONSTIPATION Enoxaparin Sodium (Lovenox) 95 mg SUBCUT Q12H [facility] Last Admin: 11/28/19 08:20 Dose: 95 mg Documented by: Epinephrine (Vaponephrine) 0.5 ml INHALATION Q6H.RESPIRATORY PRN PRN Reason: Stridor Furosemide (Lasix) 40 mg IVP BID [facility] Last Admin: 11/28/19 08:20 Dose: 40 mg Documented by: Glucagon (Glucagen) 1 mg IM ONCE PRN; Protocol PRN Reason: Adult Acute Hypoglycemia Prot Hydralazine HCl (Apresoline) 5 mg IVP Q4H PRN PRN Reason: HYPERTENSION Last Admin: 11/27/19 23:05 Dose: 5 mg Documented by: Labetalol HCl 300 mg/ Sodium (Chloride) 300 mls @ 30 mls/hr IV .Q10H PRN; Protocol PRN Reason: Systolic BP > 140 mmHg Insulin Human Regular 250 unit (/ Sodium Chloride) 252.5 mls @ 0 mls/hr IV .Q0M [facility]; Protocol Amiodarone HCl 900 mg/Dextrose/ IV Miscellaneous Supplies 518 mls @ 0 mls/hr IV .Q0M [facility]; Protocol Last Titration: 11/22/19 18:22 Dose: Infused Documented by: Dextrose (D5w) 500 mls @ 100 mls/hr IV ONCE PRN; Protocol PRN Reason: Adult Acute Hypoglycemia Prot Insulin Aspart (Novolog) 0 unit SUBCUT WM&BEDTIME [facility]; Protocol Last Admin: 11/28/19 07:23 Dose: Not Given Documented by: Labetalol HCl (Trandate) 5 mg IVP Q6H PRN PRN Reason: HYPERTENSION Last Admin: 11/26/19 07:55 Dose: 5 mg Documented by: Lactulose (Constulose) 10 gm PO DAILY PRN PRN Reason: CONSTIPATION Levothyroxine Sodium (Synthroid) 100 mcg PO DAILY [facility] Magnesium Hydroxide (Milk Of Magnesia) 30 ml PO DAILY PRN PRN Reason: CONSTIPATION Meclizine HCl (Antivert) 25 mg PO TID PRN PRN Reason: DIZZINESS Last Admin: 11/27/19 08:48 Dose: 25 mg Documented by: Metoclopramide HCl (Reglan) 5 mg IVP BID PRN PRN Reason: NAUSEA AND VOMITING Last Admin: 11/27/19 09:42 Dose: 5 mg Documented by: Metoprolol Tartrate (Metoprolol Tartrate) 5 mg IV Q4H PRN PRN Reason: Heart rate above 120 Metoprolol Tartrate (Lopressor) 50 mg PO BID [facility] Last Admin: 11/28/19 08:19 Dose: 50 mg Documented by: Naloxone HCl (Narcan) 0.1 mg IVP Q2M PRN PRN Reason: OPIATERV Neomycin/Polymyxin/Bacitracin (Neosporin Oint Pkt) 1 applic TOPICAL BID [facility] Last Admin: 11/28/19 08:20 Dose: 1 applic Documented by: Ondansetron HCl (Zofran) 4 mg IVP Q6H PRN PRN Reason: NAUSEA Last Admin: 11/28/19 09:35 Dose: 4 mg Documented by: Pantoprazole Sodium (Protonix) 40 mg PO DAILY [facility] Last Admin: 11/28/19 08:19 Dose: 40 mg Documented by: Polyethylene Glycol (Miralax) 17 gm PO BID [facility] Last Admin: 11/28/19 08:21 Dose: 17 gm Documented by: Prednisone (Prednisone) 20 mg PO DAILY [facility] Last Admin: 11/28/19 08:20 Dose: 20 mg Documented by: Vitals/I&O/Wt Last Vital Signs Temp 97.9 F 11/30/19 15:00 Pulse 67 11/30/19 16:00 Resp 17 11/30/19 16:00 BP 158/86 11/30/19 16:00 Pulse Ox 96 11/30/19 16:00 11/30/19 11/30/19 11/30/19 06:59 14:59 22:59 Intake Total 550 / 1800 290 / 290 Output Total 950 / 1460 100 / 100 Balance -400 / 340 190 / 190 Weight last 48 hrs Weight 190 lb 8 oz Weight 193 lb 11.2 oz Physical Exam Narrative: EXAM NARRATIVE: GENERAL: Patient is alert, awake and oriented x3. She says she's feeling better except some neck pain which wasn't relieved after Tylenol NECK: No jugular vein distension. HEENT: No cyanosis. No icterus. No pallor. HEART: Regular S1 and S2. No murmur, rub or gallop. LUNGS: Clear to auscultate bilaterally. ABDOMEN: Soft, nontender and nondistended. Positive bowel sounds. No guarding, rebound or tenderness. CENTRAL NERVOUS SYSTEM: Grossly nonfocal. EXTREMITIES: Lower extremities without edema . Urinary Catheter Management^: Mayorga Latex: Cath Placed During This Visit: no Data : 11/30/19 04:29 11/30/19 04:29 Micro: Microbiology 11/29/19 17:35 Gram Stain - Final Chest A&P Assessment and plan (1) Postoperative atrial fibrillation: Continues in sinus rhythm. Continue current regimen . Status: Resolved Code(s): I97.89 - Other postprocedural complications and disorders of the circulatory system, not elsewhere classified; I48.91 - Unspecified atrial fibrillation (2) Status post aorto-coronary artery bypass graft: Stable from a coronary artery disease/bypass perspective. Continue to manage during recovery with optimization of medicine Status: Acute Code(s): Z95.1 - Presence of aortocoronary bypass graft (3) NSTEMI (non-ST elevated myocardial infarction): Stable post CABG. Continue current management Status: Acute Code(s): I21.4 - Non-ST elevation (NSTEMI) myocardial infarction (4) Chronic kidney disease: Stable with hypokalemia. Potassium is being replaced. Status: Acute Qualifiers: Chronic kidney disease stage: stage 2 (mild) Qualified Code(s): N18.2 - Chronic kidney disease, stage 2 (mild) Code(s): N18.9 - Chronic kidney disease, unspecified (5) Accelerated essential hypertension: Blood pressure is moderately elevated I will add heart is losing and we will try to control the pain Status: Chronic Code(s): I10 - Essential (primary) hypertension (6) Dyslipidemia: On statin. 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
[2019-11-30 17:12] LABS: Glucose Point of Care 110 mg/dL (70-110)
[2019-11-30 19:54] LABS: Vancomycin Trough 22.8 ug/mL (10-15)
--- NOTE | 2019-11-30 20:58 | PC.PHAR ---
Vancomycin trough level before third dose of 1250mg IVPB every 18 hours is 22.8. Dosage is adjusted as follows: hold until 24 hours from last dose and resume at 1000mg IVPB everey 24 hours with a trough level to be obtained before the third 1 gm dose.
[2019-11-30] MEDS: hyDRALAzine 25 mg Tablet PO (22:35)
[2019-11-30] MEDS: atorvastatin 40 mg Tablet 20 MG PO (22:36)
[2019-12-01] VITALS (23 sets, daily range): BP systolic 126–176; BP diastolic 61–92; PULSE 54–97; RESP 15–24; TEMP 36.6; O2SAT 93–98
[2019-12-01 02:54] LABS: Glucose Point of Care 203 mg/dL (70-110)
[2019-12-01 04:41] LABS: Basophils # 0.1 10^3/uL (0.0-0.1); Basophils % 0.7 %; Eosinophils # 0.1 10^3/uL (0.0-0.8); Eosinophils % 0.6 %; Hematocrit 34.5 % (37.0-47.0); Hemoglobin 10.6 g/dL (11.5-15.3); Lymphocytes # 1.6 10^3/uL (0.8-4.8); Lymphocytes % 15.6 %; Mean Corpuscular HGB Conc 30.7 g/dL (30.0-36.0); Mean Corpuscular Hemoglobin 28.7 pg (28.0-34.0); Mean Corpuscular Volume 93.5 fL (81-99); Mean Platelet Volume 12.1 fL (7.4-10.4); Monocytes # 0.6 10^3/uL (0.2-0.9); Monocytes % 5.7 %; Neutrophils # 7.8 10^3/uL (1.8-7.7); Neutrophils % 74.7 %; Nucleated Red Blood Cells % 0 %; Platelet Count 250 10^3/cmm (130-400); Red Blood Count 3.69 10^6/uL (4.1-5.3); Red Cell Distribution Width 13.9 % (12.1-15.1); White Blood Count 10.5 10^3/uL (4.0-10.0)
[2019-12-01 05:06] LABS: Alanine Aminotransferase 28 U/L (0-33); Alkaline Phosphatase 104 IU/L (35-105); Anion Gap 13.3 (5-19); Aspartate Amino Transferase 25 U/L (0-32); Blood Urea Nitrogen 18 mg/dL (8-23); Calcium 9.1 mg/dL (8.5-10.5); Carbon Dioxide 30 mmol/L (22-29); Chloride 103 mmol/L (98-107); Globulin 3.3 g/dL (1.3-4.6); Glucose 85 mg/dL (74-106); Potassium 3.3 mmol/L (3.5-5.1); Sodium 143 mmol/L (136-145); Total Bilirubin 0.6 mg/dL (0.15-1.2); Total Protein 6.3 g/dL (6.6-8.7)
[2019-12-01] MEDS: piperacillin-tazobactam 3.375 GM in sodium chloride 0.9% (plus) 50 ML IV ×2 (06:15→20:09)
[2019-12-01 07:29] LABS: Glucose Point of Care 76 mg/dL (70-110)
--- NOTE | 2019-12-01 10:03 | P.PN_ITS ---
Subjective Subjective: Interval history: Patient had some shortness of breath with activities this morning. Her sternal wound had a minimal drainage yesterday. Denies any fever or chills or cough. She had some neck pain and back pain, musculoskeletal in origin. Medications: Reviewed: Yes Medication Review Details: Current Medications Acetaminophen (Tylenol) 650 mg PO Q4H PRN PRN Reason: MILD PAIN OR INCREASE TEMP Last Admin: 11/30/19 08:26 Dose: 650 mg Documented by: Hydrocodone Bitart/Acetaminophen ([place] 5-325 Mg) 1 - 2 tab PO Q4H PRN PRN Reason: MODERATE TO SEVERE PAIN Last Admin: 12/01/19 17:13 Dose: 1 tab Documented by: Amiodarone HCl (Cordarone) 200 mg PO DAILY [facility] Amlodipine Besylate (Norvasc) 10 mg PO DAILY [facility] Last Admin: 12/01/19 11:01 Dose: 10 mg Documented by: Aspirin (Aspirin Ec) 81 mg PO DAILY [facility] Last Admin: 12/01/19 11:02 Dose: 81 mg Documented by: Atorvastatin Calcium (Lipitor) 20 mg PO BEDTIME [facility] Last Admin: 11/30/19 22:36 Dose: 20 mg Documented by: Bisacodyl (Dulcolax) 10 mg PO DAILY PRN PRN Reason: CONSTIPATION Last Admin: 11/24/19 16:46 Dose: 10 mg Documented by: Chlorhexidine Gluconate (Betasept) 1 applic TOPICAL ONCE [facility] Last Admin: 11/29/19 22:08 Dose: 1 bottle Documented by: Clopidogrel Bisulfate (Plavix) 75 mg PO DAILY [facility] Last Admin: 12/01/19 11:03 Dose: 75 mg Documented by: Dextrose (D50w) 25 ml IVP ONCE PRN; Protocol PRN Reason: hypoglycemia protocol Dextrose (D50w) 50 ml IVP PRN PRN; Protocol PRN Reason: hypoglycemia protocol Docusate Sodium (Colace) 100 mg PO DAILY PRN PRN Reason: CONSTIPATION Last Admin: 11/30/19 09:08 Dose: 100 mg Documented by: Enoxaparin Sodium (Lovenox) 40 mg SUBCUT Q24H [facility] Last Admin: 12/01/19 11:00 Dose: 40 mg Documented by: Epinephrine (Vaponephrine) 0.5 ml INHALATION Q6H.RESPIRATORY PRN PRN Reason: Stridor Furosemide (Lasix) 40 mg PO DAILY [facility] Last Admin: 12/01/19 17:13 Dose: 40 mg Documented by: Glucagon (Glucagen) 1 mg IM ONCE PRN; Protocol PRN Reason: Adult Acute Hypoglycemia Prot Hydralazine HCl (Apresoline) 5 mg IVP Q4H PRN PRN Reason: HYPERTENSION Last Admin: 11/27/19 23:05 Dose: 5 mg Documented by: Hydralazine HCl (Apresoline) 25 mg PO Q8H [facility] Last Admin: 12/01/19 17:12 Dose: 25 mg Documented by: Insulin Human Regular 250 unit (/ Sodium Chloride) 252.5 mls @ 0 mls/hr IV .Q0M [facility]; Protocol Dextrose (D5w) 500 mls @ 100 mls/hr IV ONCE PRN; Protocol PRN Reason: Adult Acute Hypoglycemia Prot Piperacillin Sod/Tazobactam (Sod 3.375 gm/ Sodium Chloride) 50 mls @ 12.5 mls/hr IV Q8H [facility]; Protocol Vancomycin HCl 1,250 mg/ (Sodium Chloride) 250 mls @ 166.667 mls/hr IV Q24H [facility] Last Admin: 12/01/19 17:18 Dose: 166.7 mls/hr Documented by: Insulin Aspart (Novolog) 0 unit SUBCUT WM&BEDTIME [facility]; Protocol Last Admin: 12/01/19 17:17 Dose: Not Given Documented by: Labetalol HCl (Trandate) 5 mg IVP Q6H PRN PRN Reason: HYPERTENSION Last Admin: 11/26/19 07:55 Dose: 5 mg Documented by: Lactulose (Constulose) 10 gm PO DAILY PRN PRN Reason: CONSTIPATION Levothyroxine Sodium (Synthroid) 100 mcg PO DAILY [facility] Last Admin: 12/01/19 11:03 Dose: 100 mcg Documented by: Liothyronine Sodium (Cytomel) 5 mcg PO DAILY [facility] Last Admin: 12/01/19 17:14 Dose: 5 mcg Documented by: Magnesium Hydroxide (Milk Of Magnesia) 30 ml PO DAILY PRN PRN Reason: CONSTIPATION Meclizine HCl (Antivert) 25 mg PO TID PRN PRN Reason: DIZZINESS Last Admin: 11/29/19 09:56 Dose: 25 mg Documented by: Metoclopramide HCl (Reglan) 5 mg IVP BID PRN PRN Reason: NAUSEA AND VOMITING Last Admin: 11/27/19 09:42 Dose: 5 mg Documented by: Metoprolol Tartrate (Metoprolol Tartrate) 5 mg IV Q4H PRN PRN Reason: Heart rate above 120 Metoprolol Tartrate (Lopressor) 50 mg PO BID [facility] Last Admin: 12/01/19 17:13 Dose: 50 mg Documented by: Multivitamins Therapeutic (Multivitamin Tab) 1 tab PO DAILY [facility] Last Admin: 12/01/19 11:02 Dose: 1 tab Documented by: Naloxone HCl (Narcan) 0.1 mg IVP Q2M PRN PRN Reason: OPIATERV Neomycin/Polymyxin/Bacitracin (Neosporin Oint Pkt) 1 applic TOPICAL BID [facility] Last Admin: 12/01/19 17:39 Dose: Not Given Documented by: Nystatin (Nystatin Powder) 1 applic TOPICAL Q12H [facility] Last Admin: 12/01/19 12:09 Dose: Not Given Documented by: Ondansetron HCl (Zofran) 4 mg IVP Q6H PRN PRN Reason: NAUSEA Last Admin: 11/29/19 09:32 Dose: 4 mg Documented by: Pantoprazole Sodium (Protonix) 40 mg PO DAILY [facility] Last Admin: 12/01/19 11:04 Dose: 40 mg Documented by: Polyethylene Glycol (Miralax) 17 gm PO BID [facility] Last Admin: 12/01/19 17:39 Dose: Not Given Documented by: Polysaccharide Iron Complex (Ferrex) 150 mg PO BIDWM [facility] Last Admin: 12/01/19 17:12 Dose: 150 mg Documented by: Prednisone (Prednisone) 5 mg PO DAILY [facility] Last Admin: 12/01/19 17:12 Dose: 5 mg Documented by: Vitamin A/Vitamin D (Vitamin A & D) 1 applic TOPICAL Q12H [facility] Last Admin: 12/01/19 12:08 Dose: Not Given Documented by: Zinc Oxide (Zinc Oxide) 1 applic TOPICAL PRN PRN PRN Reason: SKIN PROTECTANT Last Admin: 11/29/19 22:10 Dose: 1 applic Documented by: Vitals/I&O/Wt Last Vital Signs Temp 97.8 F 12/01/19 06:00 Pulse 97 12/01/19 10:00 Resp 20 H 12/01/19 10:00 BP 140/81 12/01/19 10:00 Pulse Ox 95 12/01/19 09:00 11/30/19 12/01/19 12/01/19 22:59 06:59 14:59 Intake Total 510 / 800 50 / 850 120 / 120 Output Total 600 / 700 600 / 1300 700 / 700 Balance -90 / 100 -550 / -450 -580 / -580 Weight last 48 hrs Weight 190 lb 12.8 oz Weight 190 lb 8 oz Physical Exam Narrative: EXAM NARRATIVE: GENERAL: The patient is alert and oriented times three. Not in any acute distress. HEENT: Minimal pallor,no icterus or lymphadenopathy. The pupils are reactant to light. Oral cavity: There are no mucous membrane lesions. Funduscopic examination: NECK: Trachea appears to be central. No masses noted. No JVD or thyromegaly appreciated. No carotid bruit. She has some tenderness in the cervical region, posteriorly. It is more diffuse. Patient seems to think that this is related to her neck positioning. RESPIRATORY: Breath sounds are heard bilaterally with no rales or rhonchi BREASTS: Deferred. HEART: The heart sounds are normal. No S3 or S4. No severe murmurs. No pe ricardial rub ABDOMEN: No vessel pulsations or distention. No tenderness. No organomegaly appreciated. No abdominal bruit. Bowel sounds are normally heard. : Deferred. RECTAL: Deferred. LYMPHATIC: No lymphadenopathy noted in the neck or groin. EXTREMITIES: Trace edema of the lower estimated his with no cyanosis. MUSCULOSKELETAL: No acute joint deformities or swelling SKIN: The incision wound in the chest is healing with a minimal drainage and redness NEUROPSYCHIATRIC: The patient is alert and oriented x3. No focal motor deficits Const: COMMON NORMALS: alert GENERAL APPEARANCE: comfortable (Appears to be sleepy), well developed and lethargic ORIENTATION/CONSCIOUSNESS: Yes lethargic HENMT: MOUTH: no other (ulcers or bleeding) TEETH & GINGIVA: no other (bleeding observed and inflammation present) Eye: COMMON NORMALS: conjunctivae normal CONJUNCTIVA: Yes conjunctivae normal SCLERA: sclerae normal DIRECT OPHTHALMOSCOPY: Yes other (The fundus is not visualized) Neck/C-Spine: COMMON NORMALS: no JVD and thyroid normal THYROID: thyroid normal CAROTIDS: Yes normal carotid upstroke (and runoff) Chest: COMMONS NORMALS: inspection of chest normal CHEST: Yes abnormal inspection of the chest (Sternotomy site appears to be healing well. No evidence of any bleeding or infection.) Resp: COMMON NORMALS: clear to auscultation bilaterally EFFORT & INSPECTION: Yes symmetric chest movement and No uses accessory muscles AUSCULTATION: clear to auscultation bilaterally, no crackles and no wheezes Cardio: COMMON NORMALS: no JVD JUGULAR VENOUS DISTENTION: JVD present PALPATION: no heave, no palpable S3 and no thrill HEART SOUNDS: no click, no murmurs and no rubs BRUITS: no abdominal aortic bruits PERIPHERAL PULSES: femoral pulses present positive bilateral (Normal) GI: AUSCULTATION: Yes normoactive bowel sounds and No abdominal bruit PALPATION: No tender, No hepatomegaly, No splenomegaly and No mass Back/Pelvis: GENERAL BACK: No swelling and No other (joint deformities) THORACIC SPINE/UPPER BACK: No kyphosis present LUMBAR SPINE/LOWER BACK: No lumbar scoliosis present Extremity: COMMON NORMALS: negative for no clubbing, cyanosis or edema GENERAL: No cyanosis OTHER: Trace of edema Neuro: COMMON NORMALS: moves all extremities and no focal motor deficits SENSORIUM/ORIENTATION: Yes alert, Yes lethargic and Yes other (Speech is slow) MOTOR EXAM: No tremor Psych: MOOD & AFFECT: Yes other (Normal mood and affect) Skin: COMMON NORMALS: skin turgor normal; negative for no petechiae GENERAL SKIN EXAM: turgor normal, skin not dry and no erythema RASHES: rash noted NAILS: normal, no clubbing, not discolored and no other (cyanosis) Urinary Catheter Management^: Mayorga Latex: Cath Placed During This Visit: no Data : 12/01/19 04:18 12/01/19 04:18 Micro: Microbiology 11/29/19 17:35 Gram Stain - Final Chest Wound Culture - Preliminary A&P Assessment and plan (1) Postoperative atrial fibrillation: Patient had some episodes of bradycardia. She is currently staying in the sinus rhythm. It was decided to cut back on the amiodarone to 200 mg p.o. daily. May continue on the current dose of metoprolol. Status: Resolved Code(s): I97.89 - Other postprocedural complications and disorders of the circulatory system, not elsewhere classified; I48.91 - Unspecified atrial fibrillation (2) Status post aorto-coronary artery bypass graft: Patient status post two-vessel coronary bypass surgery. Clinically seems to be stable. May continue on the current measures. Status: Acute Code(s): Z95.1 - Presence of aortocoronary bypass graft (3) NSTEMI (non-ST elevated myocardial infarction): May continue on the current medications. Status: Acute Code(s): I21.4 - Non-ST elevation (NSTEMI) myocardial infarction (4) Chronic kidney disease: The kidney function is stable. We will continue monitoring the electrolytes. BMP today Status: Acute Qualifiers: Chronic kidney disease stage: stage 2 (mild) Qualified Code(s): N18.2 - Chronic kidney disease, stage 2 (mild) Code(s): N18.9 - Chronic kidney disease, unspecified (5) Accelerated essential hypertension: Currently she is normotensive. May continue on the current medications. Status: Chronic Code(s): I10 - Essential (primary) hypertension (6) Dyslipidemia: Continue on the current medications. So far she is tolerating the medications. Status: Acute Code(s): E78.5 - Hyperlipidemia, unspecified Additional A&P Information Postoperative anemia, stable Attestations Medical Necessity Statement*: Disposition as per the primary. Patient may be moved out of the ICU Coding Level of Care Code Acute Full Stack Net Developer for Hillary Lambert Diagnoses Postoperative atrial fibrillation I97.89; I48.91 Status post aorto-coronary artery bypass graft Z95.1 NSTEMI (non-ST elevated myocardial infarction) I21.4 Chronic kidney disease N18.2 Chronic kidney disease stage: stage 2 (mild) Accelerated essential hypertension I10 Dyslipidemia E78.5
[2019-12-01] MEDS: enoxaparin 40 mg/0.4 mL Syringe SUBCUT (11:00)
[2019-12-01] MEDS: amiodarone 200 mg Tablet 400 MG PO (11:01)
[2019-12-01] MEDS: amlodipine 10 mg Tablet PO (11:01)
[2019-12-01] MEDS: multivitamin therapeutic Tablet 1 TAB PO (11:02)
[2019-12-01] MEDS: aspirin 81 mg EC Tablet PO (11:02)
[2019-12-01] MEDS: metoprolol tartrate 50 mg Tablet PO ×2 (11:02→17:13)
[2019-12-01] MEDS: clopidogrel 75 mg Tablet PO (11:03)
[2019-12-01] MEDS: iron polysaccharide complex 150 mg Capsule PO ×2 (11:03→17:12)
[2019-12-01] MEDS: levothyroxine 100 mcg Tablet PO (11:03)
[2019-12-01] MEDS: pantoprazole DR 40 mg Tablet PO (11:04)
[2019-12-01] MEDS: HYDROcodone-acetaminophen 5-325 mg Tablet PO ×3 (11:06→20:16)
--- NOTE | 2019-12-01 12:08 | P.PN_ITS ---
Subjective Subjective: Interval history: No acute events overnight. Today morning patient denies of having any nausea or vomiting but complains of having occasional semisolid bowel movements. She denies of having any chest pain, nausea, vomiting, abdominal pain. Complains of mild shortness of breath occasionally. States she is feeling little anxious. Complains of pain in her right knee but states have been going on even prior to surgery. Medications: Reviewed: Yes Vitals/I&O/Wt Last Vital Signs Temp 97.8 F 12/01/19 06:00 Pulse 73 12/01/19 12:00 Resp 24 H 12/01/19 12:00 BP 147/68 12/01/19 12:00 Pulse Ox 93 12/01/19 12:00 11/30/19 12/01/19 12/01/19 22:59 06:59 14:59 Intake Total 510 / 800 50 / 850 410 / 410 Output Total 600 / 700 600 / 1300 700 / 700 Balance -90 / 100 -550 / -450 -290 / -290 Weight last 48 hrs Weight 86.545 kg Weight 86.409 kg Physical Exam Narrative: EXAM NARRATIVE: General: No acute distress, AO x3, mildly anxious HEENT: PERRLA, pupils bilaterally equal and reactive Chest: Normal vesicular breath sounds, very fine bilateral lower zone crackles, equal good air entry bilaterally CVS: S1-S2 regular, no murmurs, sinus bradycardia, no gallops or S3 or S4, no rubs, no JVD Abdomen: Soft, nontender, no organomegaly, bowel sounds present Neuro: No focal deficits, no facial deformity, AO x3, power 5/5 in all limbs Extremities: Bilateral pulses equal and palpable. Urinary Catheter Management^: Mayorga Latex: Cath Placed During This Visit: no Data : 12/01/19 04:18 12/01/19 04:18 Micro: Microbiology 11/29/19 17:35 Gram Stain - Final Chest Wound Culture - Preliminary A&P Assessment and plan (1) Status post aorto-coronary artery bypass graft: Status: Acute Code(s): Z95.1 - Presence of aortocoronary bypass graft (2) NSTEMI (non-ST elevated myocardial infarction): Status: Acute Code(s): I21.4 - Non-ST elevation (NSTEMI) myocardial infarction (3) Atrial fibrillation with RVR: Transitioned to oral amiodarone, continue metoprolol. In SR. Status: Resolved Code(s): I48.91 - Unspecified atrial fibrillation (4) Anemia: Status: Acute Qualifiers: Anemia type: other cause Other causes of anemia: acute posthemorrhagic Qualified Code(s): D62 - Acute posthemorrhagic anemia Code(s): D64.9 - Anemia, unspecified (5) Chronic kidney disease: Status: Acute Qualifiers: Chronic kidney disease stage: stage 2 (mild) Qualified Code(s): N18.2 - Chronic kidney disease, stage 2 (mild) Code(s): N18.9 - Chronic kidney disease, unspecified (6) Accelerated essential hypertension: Status: Chronic Code(s): I10 - Essential (primary) hypertension (7) Hypothyroid: Status: Chronic Qualifiers: Hypothyroidism type: acquired Qualified Code(s): E03.9 - Hypothyroidism, unspecified Code(s): E03.9 - Hypothyroidism, unspecified (8) Postoperative atrial fibrillation: Status: Resolved Code(s): I97.89 - Other postprocedural complications and disorders of the circulatory system, not elsewhere classified; I48.91 - Unspecified atrial fibrillation Additional A&P Information Presented with NSTEMI, 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 Continue with Lopressor 50 mg twice daily. Last Echo on 11/17 with LVEF 55% without RWMA. Grade II diastolic dysfunction Post op course notable for : -New onset A fib with RVR: At present in sinus rhythm. Continue with amiodarone but will decrease the dose to 200 mg given occasional bradycardia. Until 11/29, was on a/c with full dose lovenox, but has A. fib lasted for less than 24 hours anticoagulation was stopped. She will remain on DAPT with ASA + Plavix - Postoperatively she was assessed by tele-neurology for concern for possible CVA due to left gaze preference while still intubated, although initially seen focal abnormalities have resolved. May have been an episode of TIA, currently appropriately managed with ASA, plavix, statins. CT head without acute ab normalities - Anemia: Hemoglobin 10.6 today. Had remained stable. Started po iron and folate - Marked deconditioning: Continue working with PT/OT. Patient is to be discharged to SNF. Has been accepted at [facility]. Awaiting preauthorization. -Fluid overload: Was in mild fluid overload postoperatively. Was being treated with Lasix 40 mg twice daily. Diuresis was withheld yesterday in view of EDMUNDO. Patient cumulatively 7.5 L negative. Last 24 hours patient is around 900 mL negative. We will continue to hold diuresis for now. - EDMUNDO on CKD: likely pre renal. Creatinine improved since yesterday. 1.3 today. We will hold Lasix dose for today as well. Also holding lisinopril. Continue to monitor BMP daily. -Concern for early post op wound dehiscnece of sternal wound : restarted on zosyn and vancomycin. Will dose antibiotics renally. Vanco trough noted to be 22.8 today. I spoke to pharmacy to dose accordingly. We will follow-up wound cultures and discontinue antibiotics accordingly. We will check MRSA swab. -Per were concern for adrenal insufficiency early in the post op course due to hypotension, extreme deconditioning. Will start tapering prednisone to 5mg qd. -post op visual blurring: Patient later reported that blurring has been ongoing for several months now. Appreciate opthalmology recommendations- visual changes attributable to cataract. No retinal abnormalities noted. Unlikly GCA. Does not need high dose steroids for the same. -post op low grade fever: now resolved. Likely 2/2 atelactasis. Encourage Incentive spirometry. Hypertension: Better controlled. Continue with with hydralazine, amlodipine and increasing metoprolol dose. Patient's heart rate today sinus bradycardia in 50s. Patient denies of having any dizziness. We will cut back the amiodarone to 200 mg daily as stated above. Discussed with Dr. Gill. Hypothyroidism: continue levothyroxine 100mcg and home dose of liothyronine 5 mcg. We will check TSH along with free T4. Mayorga removed yesterday. DVT ppx: lovenox PUD ppx: protonix Full code DISPO: discharge to [facility]. Awaiting preauthorization. If patient not getting discharged today will most likely move her to [facility]. Attestations Medical Necessity Statement*: Needs controlled hospitalization for postop management of CABG. Time Spent in Patient Care: Greater than 35 minutes (>than 50% of time spent in counselling and/or direct pt care on unit) . Coding Level of Care Code Acute Editorial Manager for Chg Fwd Diagnoses Status post aorto-coronary artery bypass graft Z95.1 NSTEMI (non-ST elevated myocardial infarction) I21.4 Atrial fibrillation with RVR I48.91 Anemia D62 Anemia type: other cause Other causes of anemia: acute posthemorrhagic Chronic kidney disease N18.2 Chronic kidney disease stage: stage 2 (mild) Accelerated essential hypertension I10 Hypothyroid E03.9 Hypothyroidism type: acquired Postoperative atrial fibrillation I97.89; I48.91
--- NOTE | 2019-12-01 13:38 | ECG_ITS ---
Measurements Intervals [place] Rate: 58 P: 32 FL: 146 QRS: 40 QRSD: 138 T: 3 QT: 489 QTc: 483 SINUS BRADYCARDIA RIGHT BUNDLE BRANCH BLOCK [120+ ms QRS DURATION, UPRIGHT V1, 40+ ms S IN I/aVL/V4/V5/V6] Compared to ECG 11/29/2019 11:56:36 T-wave abnormality no longer present Possible ischemia no longer present Electronically Signed On 12-01-2019 17:52:10 SAP BPC ARCHITECT by Navid Stewart M.D. [id number]
--- NOTE | 2019-12-01 13:44 | PC.NURSE ---
C/O CHEST DISCOMFORT. DIFFICULTY GETTING HER BREATH HAD BEEN SLEEPING QUIETLY. EKG ORDERED/DONE. DR KIM HERE TO ROUND WITH PT. VIEWED EKG & REQUESTED BNP TO BE DONE.
--- NOTE | 2019-12-01 14:38 | PC.SOCIAL ---
Updated Pg 2 of IMM Updated Pg 2 of IMM was updated patient and a copy was provided. She verbalized understanding and had no questions. Initialed, dated, and timed copy in chart.
[2019-12-01 14:49] LABS: NT Pro B Type Natriuretic Pept 3910 pg/mL (0-125)
[2019-12-01 15:18] LABS: Free T4 Free Thyroxine 0.73 ng/dL (0.82-1.77); Thyroid Stimulating Hormone 9.49 uIU/mL (0.27-4.20)
--- NOTE | 2019-12-01 16:16 | PM.PN ---
Subjective Subjective: Interval history: Postop day 12 status post CABG. She has had a pretty good weekend. Appears to be stronger and more engaging. Has been receiving meticulous wound care as she is at a high risk for breakdown. It is my understanding that there are tentative plans for discharge to a [facility]p care facility tomorrow. Medications: Reviewed: Yes Vitals/I&O/Wt Last Vital Signs Temp 97.8 F 12/01/19 06:00 Pulse 59 L 12/01/19 15:00 Resp 18 12/01/19 15:00 BP 135/70 12/01/19 15:00 Pulse Ox 97 12/01/19 15:00 12/01/19 12/01/19 12/01/19 06:59 14:59 22:59 Intake Total 50 / 850 410 / 410 Output Total 600 / 1300 700 / 700 Balance -550 / -450 -290 / -290 Weight last 48 hrs Weight 190 lb 12.8 oz Weight 190 lb 8 oz Physical Exam Neck/C-Spine: COMMON NORMALS: no JVD Chest: OTHER: Sternum appears to have remained stable so far. The drain sites well approximated. There is a bit of eschar at the bottom of the sternotomy incision though no active drainage. We will continue with IV antibiotics as well as Maxorb silver impregnated dressing. I personally inspected the wound today. Incisions were painted with Betadine and recovered. A new support bra was applied. Resp: COMMON NORMALS: normal respiratory effort and clear to auscultation bilaterally EFFORT & INSPECTION: Yes able to speak in complete sentences and Yes symmetric chest movement AUSCULTATION: clear to auscultation bilaterally Cardio: COMMON NORMALS: no JVD, regular rate, regular rhythm and S1 normal heart sound PALPATION: normal PMI RATE: regular rate RHYTHM: regular rhythm HEART SOUNDS: S1 normal and no murmurs Urinary Catheter Management^: Mayorga Latex: Cath Placed During This Visit: no Data : 12/01/19 04:18 12/01/19 04:18 Micro: Microbiology 11/29/19 17:35 Gram Stain - Final Chest Wound Culture - Preliminary A&P Assessment and plan (1) Status post aorto-coronary artery bypass graft: Postop day #12 status post CABG with generalized deconditioning. Slowly improving. Tentatively planned for discharge to usp care tomorrow. Will need meticulous and frequent incision surveillance, pulmonary toilet, and generalized rehab. I greatly appreciate the expertise of our hospitalist and cardiology colleagues. 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
[2019-12-01 17:10] LABS: Glucose Point of Care 126 mg/dL (70-110)
[2019-12-01] MEDS: hyDRALAzine 25 mg Tablet PO ×2 (17:12→22:02)
[2019-12-01] MEDS: predniSONE 5 mg Tablet PO (17:12)
[2019-12-01] MEDS: FUROsemide 40 mg Tablet PO (17:13)
[2019-12-01] MEDS: liothyronine 5 mcg Tablet PO (17:14)
[2019-12-01 21:53] LABS: Glucose Point of Care 151 mg/dL (70-110)
[2019-12-01] MEDS: meclizine 25 mg tablet PO (21:59)
[2019-12-01] MEDS: nystatin powder 15 gm Btl 1 APPLIC TOPICAL (22:00)
[2019-12-01] MEDS: atorvastatin 40 mg Tablet 20 MG PO (22:00)
[2019-12-02] VITALS (10 sets, daily range): BP systolic 125–159; BP diastolic 64–79; PULSE 56–80; RESP 16–26; TEMP 36.6–36.8; O2SAT 95–98
[2019-12-02] MEDS: piperacillin-tazobactam 3.375 GM in sodium chloride 0.9% (plus) 50 ML IV ×2 (04:40→13:05)
[2019-12-02 05:09] LABS: Basophils # 0.1 10^3/uL (0.0-0.1); Basophils % 0.8 %; Eosinophils # 0.1 10^3/uL (0.0-0.8); Eosinophils % 0.7 %; Hematocrit 39.3 % (37.0-47.0); Hemoglobin 11.6 g/dL (11.5-15.3); Lymphocytes # 1.9 10^3/uL (0.8-4.8); Lymphocytes % 17.7 %; Mean Corpuscular HGB Conc 29.5 g/dL (30.0-36.0); Mean Corpuscular Hemoglobin 29.7 pg (28.0-34.0); Mean Corpuscular Volume 100.8 fL (81-99); Monocytes # 0.6 10^3/uL (0.2-0.9); Neutrophils # 7.6 10^3/uL (1.8-7.7); Neutrophils % 72.8 %; Nucleated Red Blood Cells % 0 %; Platelet Count 273 10^3/cmm (130-400); Red Cell Distribution Width 14.4 % (12.1-15.1); White Blood Count 10.5 10^3/uL (4.0-10.0)
[2019-12-02 05:24] LABS: Alanine Aminotransferase 24 U/L (0-33); Albumin Level 3.3 g/dL (3.5-5.2); Alkaline Phosphatase 103 IU/L (35-105); Anion Gap 15.1 (5-19); Aspartate Amino Transferase 24 U/L (0-32); Blood Urea Nitrogen 15 mg/dL (8-23); Calcium 8.8 mg/dL (8.5-10.5); Carbon Dioxide 27 mmol/L (22-29); Chloride 100 mmol/L (98-107); Globulin 3.3 g/dL (1.3-4.6); Glucose 102 mg/dL (74-106); Potassium 3.1 mmol/L (3.5-5.1); Sodium 139 mmol/L (136-145); Total Bilirubin 0.5 mg/dL (0.15-1.2); Total Protein 6.6 g/dL (6.6-8.7)
--- NOTE | 2019-12-02 07:24 | P.PN_ITS ---
Subjective Subjective: Interval history: Postop day #13 status post CABG LFTs have normalized White count remains mildly elevated at 10.5 Patient has no complaints. She is sleeping on rounds this morning. Continue received vigilant incisional care, though clearly at increased risk for subsequent dehiscence. Bundle branch block noted on EKG Medications: Reviewed: Yes Vitals/I&O/Wt Last Vital Signs Temp 98 F 12/02/19 06:25 Pulse 72 12/02/19 06:25 Resp 20 H 12/02/19 06:25 BP 154/65 12/02/19 06:25 Pulse Ox 94 12/01/19 22:00 12/01/19 12/02/19 12/02/19 22:59 06:59 14:59 Intake Total 490 / 900 290 / 1190 Output Total 400 / 1100 1400 / 2500 Balance 90 / -200 -1110 / -1310 Weight last 48 hrs Weight 183 lb 3.2 oz Weight 190 lb 12.8 oz Physical Exam Chest: OTHER: Meticulous incisional care continues to be required and consistent use of bra as patient is at high risk for excisional breakdown due to her protracted hospital course, prolonged ventilation requirement, diabetes, obesity, and urgent nature of the procedure. Urinary Catheter Management^: Mayorga Latex: Cath Placed During This Visit: no Data : 12/02/19 04:20 12/02/19 04:20 Micro: Microbiology 11/29/19 17:35 Gram Stain - Final Chest Wound Culture - Preliminary A&P Assessment and plan (1) Status post aorto-coronary artery bypass graft: Postop day #13 status post CABG Betasept shower today with redressing of wounds. Tentative plans for discharge to skilled care. Will need careful and detailed instruction to nursing staff concerning incisional care and constant bra support to protect from skin traction due to breast tissue. I have included incision c are in the discharge summary. Status: Acute Code(s): Z95.1 - Presence of aortocoronary bypass graft Attestations Medical Necessity Statement*: Status post CABG with protracted convalescence due to deconditioning Time Spent in Patient Care: less than 15 minutes Coding Level of Care Code Acute Naturopathic Physician for [facility] Diagnoses Status post aorto-coronary artery bypass graft Z95.1
[2019-12-02] MEDS: enoxaparin 40 mg/0.4 mL Syringe SUBCUT (09:00)
[2019-12-02] MEDS: amiodarone 200 mg Tablet PO (09:05)
[2019-12-02] MEDS: iron polysaccharide complex 150 mg Capsule PO (09:05)
[2019-12-02] MEDS: multivitamin therapeutic Tablet 1 TAB PO (09:05)
[2019-12-02] MEDS: levothyroxine 100 mcg Tablet PO (09:05)
[2019-12-02] MEDS: aspirin 81 mg EC Tablet PO (09:05)
[2019-12-02] MEDS: clopidogrel 75 mg Tablet PO (09:05)
[2019-12-02] MEDS: FUROsemide 40 mg Tablet PO (09:06)
[2019-12-02] MEDS: pantoprazole DR 40 mg Tablet PO (09:06)
[2019-12-02] MEDS: neomycin-poly-bacitracin oint 0.9 gm Pkt 1 APPLIC TOPICAL (09:07)
[2019-12-02] MEDS: predniSONE 5 mg Tablet PO (09:07)
[2019-12-02] MEDS: amlodipine 10 mg Tablet PO (09:07)
[2019-12-02] MEDS: hyDRALAzine 25 mg Tablet PO ×2 (09:12→15:31)
--- NOTE | 2019-12-02 09:57 | P.DS_ITS ---
Discharge Providers Date of Admission: 11/16/19 21:16 Date of Discharge: 12/02/19 Attending Provider at Admission: Nunu Wilson DO Attending Provider at Discharge: Jony Muñiz MD Diagnoses at Discharge Discharge Diagnosis (1) Status post aorto-coronary artery bypass graft: Status: Acute Reason for Visit Reason for Visit: Reason For Visit: CHEST PAIN, NON STEMI Hospital Course Discharge Summary: Eliana Samuels is a 69 year old female Who was admitted to [facility] on November 16 after presenting with a one-week history of progressively worsening mid chest pain radiating to the back, left neck and along the left shoulder. She states that upon questioning she has had intermittent chest pain for up to 1 year though substantially more intense the past week prior to presentation. She underwent cardiac catheterization was found to have left main stenosis involving proximal LAD along with no seymour bstantial lesion RCA. Her echocardiogram revealed systolic function to 55% with grade 2 diastolic dysfunction. Patient underwent Coronary artery bypass grafting x2 (1 artery and one vein) utilizing in situ left internal mammary artery to the left anterior descending artery and reverse of his vein graft aorta to the high ramus artery on November 19. She tolerated the procedure well.Post op course notable for : -New onset A fib with RVR: She had paroxysmal A. fib which lasted for less than 24 hours and was maintained with amiodarone 200 mg once a day along with Lopressor 50 mg twice daily. As A. fib lasted for less than 24 hours it was decided not to put her anticoagulation but continue her DAPT with aspirin and Plavix. - Postoperatively she was assessed by tele-neurology for concern for possible CVA due to left gaze preference while still intubated, although initially seen focal abnormalities have resolved. May have been an episode of TIA, currently appropriately managed with ASA, plavix, statins. CT head without acute abnormalities - Anemia: With hemoglobin remaining stable at around 10.5. Patient has been started on oral supplementation of iron. -Patient has required intermittent diuresis because of fluid overload. Diuresis was complicated by occasional EDMUNDO. As of now patient is been discharged on Lasix 40 mg daily. And her creatinine has stabilized to her baseline. -Concern for early post op wound dehiscnece of sternal wound : Wound cultures were sent and for now has remained clear. Patient is been discharged on dual therapy with Augmentin and Bactrim to cover for MRSA. Patient has worked well with physical therapy and continues to get stronger. Postoperatively her home dose of levothyroxine and liothyronine have been continued though her TSH was found to be elevated with borderline low free T4 so her home dose of levothyroxine has been increased 200 mcg. Patient is to check her TSH in 1 month. Patient is being discharged to [facility] for further rehabilitation and is to follow- up with Dr. Stanford in his office in [address] Gill in his office in 3 weeks. Patient is being discharged in hemodynamically stable condition. Physical Exam Narrative: EXAM NARRATIVE: General: No acute distress, AO x3, mildly anxious HEENT: PERRLA, pupils bilaterally equal and reactive Chest: Normal vesicular breath sounds, very fine bilateral lower zone crackles, equal good air entry bilaterally. Sternum appears to have remained stable so far. The drain sites well approximated. There is a bit of eschar at the bottom of the sternotomy incision though no active drainage CVS: S1-S2 regular, no murmurs, sinus bradycardia, no gallops or S3 or S4, no rubs, no JVD Abdomen: Soft, nontender, no organomegaly, bowel sounds present Neuro: No focal deficits, no facial deformity, AO x3, power 5/5 in all limbs Extremities: Bilateral pulses equal and palpable. Urinary Catheter Management^: Mayorga Latex: Cath Placed During This Visit: no Discharge Data Data Completed and Pending: Completed Studies During Hospitalization Category Date Time Status CT angio abd aort a runof 28887 Urge nt Cat Scan 11/16/19 19:[address] angio chest PE protcl 15535 Urge nt Cat Scan 11/16/19 19:[address] head wo con* 7 0450 Routine Cat Scan 11/23/19 09:19 Completed CREATIVE STRATEGIST request for service Routin e Exams 11/18/19 16:30 Completed CREATIVE STRATEGIST request for service Routin e Exams 11/19/19 09:49 Completed XR chest 1V mp ble [id number] Routine Exams 11/20/19 06:00 Completed XR chest 1V mp ble [id number] Routine Exams 11/21/19 06:00 Completed XR chest 1V mp ble [id number] Routine Exams 11/22/19 06:00 Completed XR chest 1V mp ble [id number] Routine Exams 11/23/19 06:00 Completed XR chest 1V mp ble [id number] Routine Exams 11/24/19 06:00 Completed XR chest 1V mp ble [id number] Stat Exams 11/16/19 18:18 Completed XR chest 1V mp ble [id number] Stat Exams 11/19/19 13:15 Completed CV echo complete* [id number] Routine Ultrasound 11/17/19 09:16 [place] [id number] Routin e Ultrasound 11/21/19 20:45 [place] [id number] Routi ne Ultrasound 11/19/19 07:00 Completed Pending at discharge Category Date Time Status MRSA by PCR Routi ne Lab 12/01/19 02:01 Ordered Vancomycin Trough Timed Lab 12/03/19 15:00 Ordered Wound Culture and Gram Stain Stat Lab 11/29/19 17:35 Results Labs from last 24 hours 12/02/19 12/02/19 12/01/19 04:20 04:20 21:51 WBC 10.5 H RBC 3.90 L Hgb 11.6 Hct 39.3 MCV 100.8 H MCH 29.7 MCHC 29.5 L RDW 14.4 Plt Count 273 MPV 12.0 H Neut % (Auto) 72.8 Lymph % (Auto) 17.7 Burke % (Auto) 6.0 Eos % (Auto) 0.7 Baso % (Auto) 0.8 Neut # (Auto) 7.6 Lymph # (Auto) 1.9 Burke # (Auto) 0.6 Eos # (Auto) 0.1 Baso # (Auto) 0.1 Nucleated RBC % (a uto) 0 Nucleated RBCs # 0.0 Sodium 139 Potassium 3.1 L Chloride 100 Carbon Dioxide 27 Anion Gap 15.1 BUN 15 Creatinine 1.2 H Glucose 102 POC Glucose 151 Calcium 8.8 Total Bilirubin 0.5 AST 24 ALT 24 Alkaline Phosphata se 103 NT-Pro-B Natriuret Pep Total Protein 6.6 Albumin 3.3 L Globulin 3.3 TSH Free T4 12/01/19 12/01/19 12/01/19 17:07 04:18 04:18 WBC RBC Hgb Hct MCV MCH MCHC RDW Plt Count MPV Neut % (Auto) Lymph % (Auto) Burke % (Auto) Eos % (Auto) Baso % (Auto) Neut # (Auto) Lymph # (Auto) Burke # (Auto) Eos # (Auto) Baso # (Auto) Nucleated RBC % (a uto) Nucleated RBCs # Sodium Potassium Chloride Carbon Dioxide Anion Gap BUN Creatinine Glucose POC Glucose 126 Calcium Total Bilirubin AST ALT Alkaline Phosphata se NT-Pro-B Natriuret Pep 3910 H Total Protein Albumin Globulin TSH 9.49 H Free T4 0.73 L Vitals: Last Vital Signs Temp 98 F 12/02/19 06:25 Pulse 72 12/02/19 06:25 Resp 20 H 12/02/19 06:25 BP 154/65 12/02/19 06:25 Pulse Ox 94 12/01/19 22:00 Discharge Plan Discharge Patient Disposition: Xfer [facility] Condition: Stable Prescriptions: New hydrocodone-acetaminophen 5-325 mg Tablet 1 - 2 tab PO Q4H PRN (Reason: Moderate To Severe Pain) Qty: 10 RF: 0 atorvastatin 40 mg Tablet 20 mg PO BEDTIME Qty: 30 RF: 0 metoprolol tartrate 50 mg Tablet 50 mg PO BID Qty: 60 RF: 0 aspirin 81 mg Tablet,Delayed Release (Dr/Ec) 81 mg PO DAILY Qty: 30 RF: 0 clopidogrel 75 mg Tablet 75 mg PO DAILY Qty: 30 RF: 0 polysaccharide iron complex [Ferrex 150] 150 mg iron Capsule 150 mg PO BIDWM Qty: 60 RF: 0 nystatin [Nyamyc] 100,000 unit/gram Powder 1 applic topical Q12H Qty: 10 RF: 0 amiodarone 200 mg Tablet 200 mg PO DAILY Qty: 30 RF: 0 insulin aspart U-100 [Novolog U-100 Insulin aspart] 100 unit/mL Solution 0 unit SUBCUT WM&BEDTIME Qty: 100 RF: 0 levothyroxine [Levoxyl] 100 mcg Tablet 100 mcg PO DAILY Qty: 30 RF: 0 bisacodyl 5 mg Tablet,Delayed Release (Dr/Ec) 10 mg PO DAILY PRN (Reason: Constipation) Qty: 10 RF: 0 docusate sodium 100 mg Capsule 100 mg PO DAILY PRN (Reason: Constipation) Qty: 10 RF: 0 meclizine 25 mg Tablet 25 mg PO TID PRN (Reason: Dizziness) Qty: 10 RF: 0 pantoprazole 40 mg Tablet,Delayed Release (Dr/Ec) 40 mg PO DAILY Qty: 30 RF: 0 Thera 400 mcg Tablet 1 tab PO DAILY Qty: 30 RF: 0 furosemide 40 mg Tablet 40 mg PO DAILY Qty: 30 RF: 0 hydralazine 25 mg Tablet 25 mg PO Q8H Qty: 90 RF: 0 prednisone 5 mg Tablet 5 mg PO DAILY 14 Days Qty: 14 RF: 0 Continued Norvasc 10 mg Tablet 10 mg PO DAILY Qty: 30 RF: 0 liothyronine 5 mcg Tablet 5 mcg PO DAILY Qty: 30 RF: 0 Discontinued carvedilol 12.5 mg Tablet 12.5 mg PO BID RF: 0 lisinopril 20 mg Tablet 20 mg PO BID RF: 0 Vitamin B-12 1,000 mcg Tablet 1,000 mcg PO DAILY RF: 0 Synthroid 88 mcg Tablet 88 mcg PO DAILY RF: 0 Discharge Orders: Discharge Order (Routine); Ordered 12/02/19 Ordered By: Jony Muñiz Other Ambulatory Orders: Thyroid Stimulating Hormone (Routine) Timeframe: 1 Month Facility: [facility] - Location: Lab - Main Lab Ordered By: Jony Muñiz Referrals: Melina Weeks MD [Family Provider] - 1 month Hoa Gill MD [Physician] - 2 weeks Juan Stanford MD [Physician] - 1 week Discharge Diet: Diabetic Discharge Activity: Limit activity as instructed Activity Restrictions/Additional Instructions: No weightbearing with upper extremities of more than 5 pounds No lifting, pulling, pushing with arms Must wear a bra consistently except during incisional care Incisions are to be cleaned daily, dry completely, paint with Betadine, place silver impregnated gauze such as Maxorb or equivalent, and cover May shower with dressings off, they confirming that all incisions are dry completely and incisional care given as described above Immediately report redness, drainage, increased pain. Frequent use of incentive spirometry. Patient is at high risk for incisional breakdown, so vigilant inspection and care required. Discharge Attestations Time Spent in Discharge Care*: greater than 30 min Specific Discharge Activities: Specific discharge activities: educating patient, discussing with director case management/social workers/dc planners and evaluating patient/reviewing data Status at Discharge: Cognitive status at discharge: cognitively intact , Behavioral status at discharge: cooperative , Functional status at discharge: independent ambulation Overall status at discharge: patient is progressing back to baseline Quality Metrics Clinical Quality Measures During this hospital stay, did patient experience: AMI Clinical Trial Participant: No Contraindication to aspirin (AMI): Aspirin given Contraindication to statin: Statin prescribed Contraindication to PCI: Intervention not indicated (Underwent CABG because of left main disease) Contraindication to Fibrinolytics: Fibrinolytics given Coding Level of Care Code Acute Control Technician for Hillary Fwd Diagnoses Status post aorto-coronary artery bypass graft Z95.1
[2019-12-02] MEDS: nystatin powder 15 gm Btl 1 APPLIC TOPICAL (10:24)
[2019-12-02] MEDS: metoprolol tartrate 50 mg Tablet PO (10:24)
[2019-12-02 12:10] LABS: Glucose Point of Care 112 mg/dL (70-110)
[2019-12-02] MEDS: liothyronine 5 mcg Tablet PO (13:05)
[2019-12-02] MEDS: HYDROcodone-acetaminophen 5-325 mg Tablet PO (13:11)
== END 2019-12-02 17:41 | disposition skilled nursing facility (03) | DRG 233 ==
LOC: ER 19:50 → ICU 21:34
PROVIDERS: Internal Medicine; Internal Medicine Cardiovascular Disease; Student in an Organized Health Care Education/Training Program; Thoracic Surgery (Cardiothoracic Vascular Surgery); Admitting Provider Internal Medicine; Emergency Provider Emergency Medicine; Family Provider Internal Medicine; Visit Provider Student in an Organized Health Care Education/Training Program
PROC: 4A023N7 Measurement of Cardiac Sampling and Pressure, Left Heart, Percutaneous Approach (ICD-10-PCS; principal; 2019-11-18 16:30)
PROC: 5A02210 Assistance with Cardiac Output using Balloon Pump, Continuous (ICD-10-PCS; principal; 2019-11-19 09:30)
PROC: 0210099 Bypass Coronary Artery, One Artery from Left Internal Mammary with Autologous Venous Tissue, Open Approach (ICD-10-PCS; principal; 2019-11-19 13:10)
DX: I21.4 Non-ST elevation (NSTEMI) myocardial infarction (principal); I63.9 Cerebral infarction, unspecified; N17.9 Acute kidney failure, unspecified; E87.0 Hyperosmolality and hypernatremia; J98.11 Atelectasis; D62 Acute posthemorrhagic anemia; I97.190 Other postprocedural cardiac functional disturbances following cardiac surgery; E87.2 Acidosis; I25.10 Atherosclerotic heart disease of native coronary artery without angina pectoris; I48.0 Paroxysmal atrial fibrillation; Z79.82 Long term (current) use of aspirin; Z79.02 Long term (current) use of antithrombotics/antiplatelets; E03.9 Hypothyroidism, unspecified; N18.2 Chronic kidney disease, stage 2 (mild); I12.9 Hypertensive chronic kidney disease with stage 1 through stage 4 chronic kidney disease, or unspecified chronic kidney disease; Y83.8 Other surgical procedures as the cause of abnormal reaction of the patient, or of later complication, without mention of misadventure at the time of the procedure; Z87.891 Personal history of nicotine dependence; I25.2 Old myocardial infarction; H54.7 Unspecified visual loss
CPT/HCPCS: 12345; 33967; 36415; 36416; 36430; 36592; 45915; 70450; 71045; 71275; 75635; 80048; 80051; 80053; 80061; 80076; 80202; 80500; 81003; 82009; 82248; 82330; 82550; 82570; 82803; 82810; 82962; 83010; 83605; 83615; 83690; 83735; 83880; 83986; 84145; 84439; 84443; 84481; 84484; 84540; 85007; 85025; 85347; 85378; 85384; 85610; 85651; 85730; 86140; 86850; 86880; 86900; 87040; 87070; 87075; 87205; 87641; 87804; 92610; 93005; 93306; 93452; 93970; 94002; 94003; 94640; 94799; 96365; 96366; 96372; 96374; 96375; 97110; 97116; 97161; 97167; 97530; 97535; 99221; 99282; C1769; C1887; C1894; C9113; J0282; J0360; J0697; J1160; J1250; J1644; J1650; J1720; J1815; J1940; J2001; J2150; J2250; J2270; J2370; J2405; J2440; J2543; J2704; J2720; J2765; J3010; J3370; J3475; J3480; J3490; J7030; J7040; J7050; J7060; J7512; J8597; P9016; P9041; P9047; Q0163; Q9967

== ENCOUNTER 2019-12-14 14:30 | Inpatient (IN) | payer MEDICARE, SELFPAY ==
[2019-12-14] VITALS (26 sets, daily range): BP systolic 101–156; BP diastolic 56–81; PULSE 62–85; RESP 12–30; TEMP 36.5–36.7; O2SAT 94–98; BMI 30.9
--- NOTE | 2019-12-14 14:43 | XR_ITS ---
WS: [id number] CHEST XRAY TECHNIQUE: Portable chest. CLINICAL INFORMATION: cough COMPARISON: November 24, 2019 FINDINGS: Surgical clips thoracic inlet. Heart: Cardiomegaly. Sternotomy. Lungs: Elevation left hemidiaphragm with colonic interposition. Tiny left pleural effusion with conso lidative atelectasis left lung base with air bronchograms. Right lung is well aerated. Bones: Thoracic scoliosis convex right. XR/XR chest 1V portable [id number] IMPRESSION: 1. Chronic elevation left hemidiaphragm. 2. Small left pleural effusion with consolidative atelectasis left lung base. 3. Right lung is well aerated.
--- NOTE | 2019-12-14 14:49 | ED_ITS ---
Entered by Cristel Guan, acting as scribe for Neyda Barrow HPI - General Adult General: Chief complaint: General Medical Stated complaint: post op problems Time Seen by Provider: 12/14/19 14:42 Source: patient Mode of arrival: ambulatory Limitations: no limitations History of Present Illness: HPI narrative: 69 yo Female presents to ED with complaint of CABG wound dehiscence. Pt states that she had open heart surgery on November [address] Stanford. Pt's caregiver states that she went to apply Nystatin underneath the patient's breasts after her shower and the patient's wound spontaneously dehisced. Pt's caregiver states that the patient's wound has drainage. MD complaint: CABG wound dehiscence Onset (ago): minute(s) (30) Location: chest Radiation: non-radiation Severity scale (1-10): 7 Pain Consistency: constant Relieving factors: none Exacerbating factors: none Associated symptoms: Deny chest pain, confusion, diaphoresis, dyspnea, headache(s), malaise, nausea, rash, palpitations, syncope or vomiting Treatments prior to arrival: none Review of Systems General: Reports: other (negative unless marked) Const: Denies: fever, chills, body aches, fatigue, malaise or diaphoresis Eyes: Denies: change in vision or blurry vision ENMT: Denies: throat pain, painful swallowing, hoarseness, ear pain, ear discharge, Change in hearing or nasal discharge Card: Denies: chest pain, palpitations, irregular heart rhythm, syncope, pre- syncope, shortness of breath on exertion or shortness of breath when lying down Resp: Denies: shortness of breath, productive cough, non-productive cough, wheezing, coughing up blood or chest congestion GI: Denies: abdominal pain, nausea, vomiting, vomiting blood, coffee grounds in vomit, diarrhea, constipation, cramping, blood in stool or black tarry stool : Denies: flank pain, painful urination, urinary frequency, urinary urgency, decreased urine ouput, urinary incontinence or blood in urine Musc: Denies: neck pain, back pain, extremity pain, extremity swelling, joint pain, joint swelling, joint warmth or joint stiffness Skin/Breast: Reports: surgical incision (CABG Wound dehiscence); Denies: rash, skin tenderness or yellow skin Neuro: Denies: headache, numbness in extremities, weakness in extremities, changes in sensation, lack of coordination, difficulty walking, dizziness, vertigo or confusion Endo: Denies: excessive thirst, tired all the time, cold intolerance, excessive sweating, flushing or hot flashes Neal/Lymph: Denies: easy bruising, easy bleeding, petechiae or enlarged lymph nodes All/Imm: Denies: hives, throat swelling, tongue swelling, facial swelling or acute wheezing PFSH ED PFSH: Statuses (acute, chronic, etc) shown below reflect problem list status as previously entered and may not be historically accurate Medical History (Updated 12/14/19 @ 18:47 by Neyda Barrow) Anemia (Acute) CAD (coronary artery disease) (Acute) Chronic kidney disease (Acute) Dyslipidemia (Acute) NSTEMI (non-ST elevated myocardial infarction) (Acute) Postoperative atrial fibrillation (Resolved) Sternal wound dehiscence (Acute) Tubal ligation evaluation (Acute) Surgical History H/O hysterectomy for benign disease (Acute) Status post aorto-coronary artery bypass graft (Acute) Family History Brother CAD (coronary artery disease), Onset Age: 59 of myocardial infarction at age 59 Father CAD (coronary artery disease), Onset Age: 55 Had open heart surgery x3 Grandfather CAD (coronary artery disease), Onset Age: 55 Also of myocardial infarction in the late 50s Social History Smoking and tobacco status: former smoker Physical Exam Const: COMMON NORMALS: no apparent distress, oriented x3, no limitations, healthy appearing and well nourished EXAM LIMITATIONS: no altered mental status GENERAL APPEARANCE: cooperative, well kempt and well developed ORIENTATION/CONSCIOUSNESS: Yes awake HENMT: COMMON NORMALS: normocephalic, head/scalp atraumatic, hearing grossly normal bilaterally, external ears normal, EAC's normal, external nose normal and moist oral mucous membranes HEAD & SCALP: normal to inspection, normocephalic and atraumatic FACE & SINUS: normal facial exam and face symmetric NOSE: external nose normal and nares normal EXTERNAL EAR: Yes external ears normal EXTERNAL AUDITORY CANAL: EAC's normal MOUTH: oral and palatal mucosa normal and tongue normal Eye: COMMON NORMALS: PERRL, EOMs intact bilaterally, conjunctivae normal and no scleral icterus GENERAL EYE: normal appearance of both eyes and normal light reflex CONJUNCTIVA: Yes conjunctivae normal SCLERA: sclerae normal CORNEA: Yes corneas normal PUPIL: Yes PERRL DIRECT OPHTHALMOSCOPY: Yes normal light reflex Neck/C-Spine: COMMON NORMALS: full ROM, no lymphadenopathy, supple, no meningeal signs and no JVD GENERAL: Yes normal visual inspection and Yes trachea midline CERVICAL SPINE: Yes cervical ROM normal Chest: COMMONS NORMALS: inspection of chest normal and palpation of chest normal Resp: COMMON NORMALS: normal respiratory effort, no retractions, no use of accessory muscles and clear to auscultation bilaterally EFFORT & INSPECTION: Yes able to speak in complete sentences AUSCULTATION: clear to auscultation bilaterally Cardio: COMMON NORMALS: no JVD, regular rate, regular rhythm, S1 normal heart sound, S2 normal heart sound, no gallops, no clicks, no murmurs and no rub JUGULAR VENOUS DISTENTION: no JVD RATE: regular rate RHYTHM: regular rhythm HEART SOUNDS: S1 normal and S2 normal GI: COMMON NORMALS: soft to palpation, non-tender, no hepatosplenomegaly and no masses INSPECTION: Yes normal to inspection PALPATION: Yes soft and Yes no hepatosplenomegaly : COMMON NORMALS: Yes no CVA tenderness BLADDER/KIDNEY EXAM: Yes no CVA tenderness Back/Pelvis: COMMON NORMALS: no CVA tenderness, thoracic and lumbar spine normal to inspection, no thoracic nor lumbar tenderness and thoraco-lumbar ROM normal Extremity: COMMON NORMALS: normal to inspection, full ROM, normal capillary refill, no joint enlargement, no clubbing, cyanosis or edema and no calf tenderness Neuro: COMMON NORMALS: oriented x3, CN's II-XII intact bilaterally, moves all extremities, no focal motor deficits and no sensory deficits noted MENINGEAL SIGNS: Yes no meningeal signs Psych: COMMON NORMALS: mental status grossly normal, thought process normal, cooperative, affect normal, speech normal and activity/motor behavior normal APPEARANCE: Yes well kempt SPEECH: Yes normal speech THOUGHT PROCESS: normal thought process Skin: COMMON NORMALS: no rashes or lesions noted, skin turgor normal, no jaundice, no petechiae and no mottling GENERAL SKIN EXAM: no rashes or lesions noted and turgor normal Course Vital Signs: Vital signs: Vital Signs Temperature 97.7 F 12/14/19 14:33 Pulse Rate 67 12/14/19 17:45 Respiratory Rate 30 H 12/14/19 17:45 Blood Pressure 111/56 12/14/19 18:15 Pulse Oximetry 95 12/14/19 17:45 MDM - General Adult MDM Narrative: Medical decision making narrative: Case reviewed with Dr. Stanford, he will come to take the patient to the OR for wound management. Lab Data: Labs: Lab Results 12/14/19 12/14/19 12/14/19 Range/Units 15:27 15:27 16:10 WBC 7.6 (4.0-10.0) 10^3/ uL RBC 3.50 L (4.1-5.3) 10^6/u L Hgb 10.2 L (11.5-15.3) g/dL Hct 35.8 L (37.0-47.0) % MCV 102.3 H (81-99) fL MCH 29.1 (28.0-34.0) pg MCHC 28.5 L (30.0-36.0) g/dL RDW 16.5 H (12.1-15.1) % Plt Count 218 (130-400) 10^3/c mm MPV 11.8 H (7.4-10.4) fL Neut % (Auto) 83.4 % Lymph % (Auto) 10.6 % [place] % (Auto) 4.4 % Eos % (Auto) 0.4 % Baso % (Auto) 0.9 % Neut # (Auto) 6.3 (1.8-7.7) 10^3/u L Lymph # (Auto) 0.8 (0.8-4.8) 10^3/u L [place] # (Auto) 0.3 (0.2-0.9) 10^3/u L Eos # (Auto) 0.0 (0.0-0.8) 10^3/u L Baso # (Auto) 0.1 (0.0-0.1) 10^3/u L Nucleated RBC % (a uto) 0 % Nucleated RBCs # 0.0 /100WBC Sodium 138 (136-145) mmol/L Potassium 4.5 (3.5-5.1) mmol/L Chloride 100 (98-107) mmol/L Carbon Dioxide 25 (22-29) mmol/L Anion Gap 17.5 (5-19) BUN 17 (8-23) mg/dL Creatinine 1.7 H (0.5-0.9) mg/dL Glucose 123 H (65-115) mg/dL Lactic Acid 1.6 (0.5-2.2) mmol/L Calcium 9.7 (8.5-10.5) mg/dL Total Bilirubin 0.3 (0.15-1.2) mg/dL AST 29 (0-32) U/L ALT 21 (0-33) U/L Alkaline Phosphata se 112 H (35-105) IU/L Total Protein 7.6 (6.6-8.7) g/dL Albumin 3.7 (3.5-5.2) g/dL Globulin 3.9 (1.3-4.6) g/dL Imaging Data^: CT Chest: Radiologist's impression: [place] [address] CT Scan Report Signed Patient: Eliana Samuels #: [id number] : 8Acc#:[id number] Age/Sex: 69 / FADM Date: 12/14/19 Loc: [facility]/Bed: Attending Dr: Ordering Provider/Ordering MD: Neyda Barrow DO Date of Service: 12/14/19 Procedure(s): CT chest w con* [id number] Accession Number(s): [id number] Report Number: [id number] PROCEDURE INFORMATION: Exam: CT Chest With Contrast Exam date and time: 12/14/2019 4:37 PM Age: 69 years old Clinical indication: Sternal or substernal pain; Prior surgery; Surgery date: 1-6 months; Surgery type: Cabg; Additional info: Cabg wound dehiscence TECHNIQUE: Imaging protocol: Computed tomography of the chest with intravenous contrast. Total DLP: 923.9 mGy-cm Radiation optimization: All CT scans at this facility use at least one of these dose optimization techniques: automated exposure control; mA and/or kV adjustment per patient size (includes targeted exams where dose is matched to clinical indication); or iterative reconstruction. Contrast material: Visipaque 320; Contrast volume: 95 ml; Contrast route: RT HAND; COMPARISON: CT angio chest PE protcl [id number] 11/16/2019 8:34 PM FINDINGS: Tubes, catheters and devices: Abandoned epicardial pacemaker leads. Lungs: Left pulmonary basilar partial atelectasis. Pleural space: Small LEFT pleural effusion. Heart: Mitral annular calcification is present. Left main, LAD, LCx and RCA [place] calcified coronary atherosclerosis. Enhancing ascending aortic coronary artery graft. Aorta: Mild aortic arch, branch, and descending thoracic aortic atherosclerotic calcification without ectasia. Mild aortic valvular calcification is present. Lymph nodes: No enlarged lymph nodes. Diaphragm: The LEFT hemidiaphragm is moderately elevated. Gallbladder and bile ducts: The gallbladder is surgically absent. The extrahepatic bile ducts are mildly dilated, measuring 8.9 mm. No ductal calculus. Pancreas: The pancreas is normal. No pancreatic mass or ductal dilatation identified. Bones/joints: Moderate rightward thoracic spinal curvature with degenerative disc disease. The patient is status post median sternotomy with sternal cerclage wires. Diffuse osteopenia. Thoracic spine vertebral body marginal osteophytes are noted at multiple levels. Soft tissues: Unremarkable. CT/CT chest w con* [id number] IMPRESSION: 1. No pulmonary embolism identified. 2. No thoracic aortic aneurysm or dissection identified. 3. Small left pleural effusion. 4. [place] coronary atherosclerosis status post coronary artery grafting. 5. Post cholecystectomy with mild extrahepatic biliary ductal dilatation. No ductal calculus identified. Radiation Dose CTDIVOL = (mGy): DLP = 923.9 (mGy-cm) Dictated By:Ector Serrato MD Signed By:Ector Serrato MDSigned Date/Time:12/14/191700 DD/ 99 Discharge Plan Discharge Patient Disposition: Placed in Observation Admit Provider: Juan Stanford Clinical Impression: Sternal wound dehiscence Condition: Stable Interventions: ED Discharge Assessment Last Done: 12/14/19 17:32 Discharge Date/Time: 12/14/19 18:34 Coding Level of Care Code ED Linter Drier Operator for Chg Fwd Exam Problem Focused The documentation recorded by the Freida nieves Carmen, accurately reflects the service I personally performed and the decisions made by Danial diez Eli N Dec 14, 2019 14:30
--- NOTE | 2019-12-14 14:53 | CTR_ITS ---
PROCEDURE INFORMATION: Exam: CT Chest With Contrast Exam date and time: 12/14/2019 4:37 PM Age: 69 years old Clinical indication: Sternal or substernal pain; Prior surgery; Surgery date: 1-6 months; Surgery type: Cabg; Additional info: Cabg wound dehiscence TECHNIQUE: Imaging protocol: Computed tomography of the chest with intravenous contrast. Total DLP: 923.9 mGy-cm Radiation optimization: All CT scans at this facility use at least one of these dose optimization techniques: automated exposure control; mA and/or kV adjustment per patient size (includes targeted exams where dose is matched to clinical indication); or iterative reconstruction. Contrast material: Visipaque 320; Contrast volume: 95 ml; Contrast route: RT HAND; COMPARISON: CT angio chest PE protcl [id number] 11/16/2019 8:34 PM FINDINGS: Tubes, catheters and devices: Abandoned epicardial pacemaker leads. Lungs: Left pulmonary basilar partial atelectasis. Pleural space: Small LEFT pleural effusion. Heart: Mitral annular calcification is present. Left main, LAD, LCx and RCA [place] calcified coronary atherosclerosis. Enhancing ascending aortic coronary artery graft. Aorta: Mild aortic arch, branch, and descending thoracic aortic atherosclerotic calcification without ectasia. Mild aortic valvular calcification is present. Lymph nodes: No enlarged lymph nodes. Diaphragm: The LEFT hemidiaphragm is moderately elevated. Gallbladder and bile ducts: The gallbladder is surgically absent. The extrahepatic bile ducts are mildly dilated, measuring 8.9 mm. No ductal calculus. Pancreas: The pancreas is normal. No pancreatic mass or ductal dilatation identified. Bones/joints: Moderate rightward thoracic spinal curvature with degenerative disc disease. The patient is status post median sternotomy with sternal cerclage wires. Diffuse osteopenia. Thoracic spine vertebral body marginal osteophytes are noted at multiple levels. Soft tissues: Unremarkable. CT/CT chest w con* [id number] IMPRESSION: 1. No pulmonary embolism identified. 2. No thoracic aortic aneurysm or dissection identified. 3. Small left pleural effusion. 4. [place] coronary atherosclerosis status post coronary artery grafting. 5. Post cholecystectomy with mild extrahepatic biliary ductal dilatation. No ductal calculus identified. Radiation Dose CTDIVOL = (mGy): DLP = 923.9 (mGy-cm)
[2019-12-14] MEDS: piperacillin-tazobactam 3.375 GM in sodium chloride 0.9% (plus) 50 ML IV ×2 (15:34→23:14)
[2019-12-14 15:35] LABS: Basophils # 0.1 10^3/uL (0.0-0.1); Basophils % 0.9 %; Eosinophils % 0.4 %; Hematocrit 35.8 % (37.0-47.0); Hemoglobin 10.2 g/dL (11.5-15.3); Lymphocytes # 0.8 10^3/uL (0.8-4.8); Lymphocytes % 10.6 %; Mean Corpuscular HGB Conc 28.5 g/dL (30.0-36.0); Mean Corpuscular Hemoglobin 29.1 pg (28.0-34.0); Mean Corpuscular Volume 102.3 fL (81-99); Mean Platelet Volume 11.8 fL (7.4-10.4); Monocytes # 0.3 10^3/uL (0.2-0.9); Monocytes % 4.4 %; Neutrophils # 6.3 10^3/uL (1.8-7.7); Neutrophils % 83.4 %; Nucleated Red Blood Cells % 0 %; Platelet Count 218 10^3/cmm (130-400); Red Cell Distribution Width 16.5 % (12.1-15.1); White Blood Count 7.6 10^3/uL (4.0-10.0)
--- NOTE | 2019-12-14 15:42 | PC.NURSE ---
chest xray at bedside
[2019-12-14 15:47] LABS: Alanine Aminotransferase 21 U/L (0-33); Albumin Level 3.7 g/dL (3.5-5.2); Alkaline Phosphatase 112 IU/L (35-105); Anion Gap 17.5 (5-19); Aspartate Amino Transferase 29 U/L (0-32); Blood Urea Nitrogen 17 mg/dL (8-23); Calcium 9.7 mg/dL (8.5-10.5); Carbon Dioxide 25 mmol/L (22-29); Chloride 100 mmol/L (98-107); Globulin 3.9 g/dL (1.3-4.6); Glucose 123 mg/dL (65-115); Potassium 4.5 mmol/L (3.5-5.1); Sodium 138 mmol/L (136-145); Total Bilirubin 0.3 mg/dL (0.15-1.2); Total Protein 7.6 g/dL (6.6-8.7)
[2019-12-14] MEDS: ondansetron 2 mg/ML SDV 2 mL 4 MG IVP (16:18)
[2019-12-14] MEDS: morphine 4 mg/mL SDV 1 mL IVP (16:18)
[2019-12-14] MEDS: iodixanol 320 mg/mL 100mL Btl IV (16:38)
[2019-12-14] MEDS: sodium chloride 0.9% 1,000 ML 100 ML IV (16:48)
[2019-12-14 17:07] LABS: Lactic Sepsis W/Reflex 1.6 mmol/L (0.5-2.2)
--- NOTE | 2019-12-14 17:29 | PM.HP ---
Providers/Chief Complaint Admitting Physician: Abdoulaye Chief Complaint: wound dehiscence History of Present Illness Eliana Samuels is a 69 year old female who is status post CABG x2 on November 19 utilizing RIVERA to LAD and a vein graft to the high ramus artery. She had originally been admitted on November 16 with a one-week history of progressively worsening mid chest pain radiating to the back, left neck and to her left shoulder. Upon questioning, this pain had occurred intermittently for up to 1 year. She was originally treated per chest pain protocol but had 2 further episodes during her hospital stay. She was seen by Dr. Gill and observed for a couple days and subs underwent left heart catheterization which revealed left main stenosis involving the proximal LAD. RCA had noncritical disease. Ejection fraction 55%. She underwent CABG x2 on November 19. A groin sheath had been left in place from her original catheterization. We utilized it for a intra-aortic balloon pump preoperatively. Her postop course was protracted due to ventilatory needs as well as altered mental status for several days which slowly recovered. She was eventually discharged on December 02. She convalesced at [facility]. I saw her postoperatively in the heart care clinic. It was clear she had some early suppuration of the inferior margin of her sternotomy incision and it appeared that appropriate dressings were not in place nor had been in place. Patient reported that there appeared to be a paucity of staff available to assist with routine needs. We initiated a Rocephin IM in the clinic as well as p.o. Bactrim. I placed Maxorb dressing over her inferior wounds with scheduled follow-up in wound care services. She was scheduled to be seen by Ms. Rupa Espinosa from wound care services at [facility] the following day and then subsequently she was discharged Sunday to home. She was scheduled for follow-up in wound care services next Sunday to see me. She presented to the emergency room with the superficial dehiscence as reported by Dr. Disla from the ER staff. I have personally reviewed her chest x-ray and CT scan. She has elevated left hemidiaphragm. The sternal reapproximation appears to be intact. Soft tissue separation by CT scan appears to involve only the most inferior margin of the sternotomy wound and does not appear to be full-thickness radiographically. There appears to be no peristernal unexpected fluid collections. There is a small left pleural effusion and associated left lower lobe segmental atelectasis. She remains afebrile and has a normal white count of 7000. It is noted that her creatinine has increased from a baseline of 1.2-1.3 and is now 1.7 though she does not appear to be prerenal. She has not had excessively discomfort and appears to be overall in relatively good spirits considering the situation. I have conferred with Dr. Disla. Vancomycin and Zosyn are scheduled to be given in the ER prior to proceeding to the operating room theater. Review of Systems Const: Reports: change in appetite (Still below average appetite, though no nausea) and fatigue; Denies: fever or chills Eyes: Denies: change in vision or blurry vision ENMT: Denies: painful swallowing or hoarseness Card: Reports: chest pain (Sternotomy discomfort, though not any worse than when I saw her last week.) Resp: Reports: shortness of breath (With exertion) GI: Denies: abdominal pain, nausea or vomiting : Denies: painful urination, urinary frequency, urinary urgency or urinary hesitancy Musc: Denies: extremity pain or extremity swelling Skin/Breast: Denies: rash Neuro: Denies: headache, numbness in extremities, weakness in extremities or changes in sensation Psych: Denies: anxiety, depression or change in appetite Endo: Denies: excessive urination, excessive thirst or cold intolerance Neal/Lymph: Denies: easy bruising, easy bleeding, petechiae or enlarged lymph nodes Medications/Allergies Allergies Allergy/AdvReac Type Severity Reaction Status Date / Time No Known Allergies Allergy Verified 11/16/19 22:57 PFSH Acute PFSH: Statuses (acute, chronic, etc) shown below reflect problem list status as previously entered and may not be historically accurate Medical History (Updated 12/14/19 @ 18:47 by Neyda Barrow) Anemia (Acute) CAD (coronary artery disease) (Acute) Chronic kidney disease (Acute) Dyslipidemia (Acute) NSTEMI (non-ST elevated myocardial infarction) (Acute) Postoperative atrial fibrillation (Resolved) Sternal wound dehiscence (Acute) Tubal ligation evaluation (Acute) Surgical History H/O hysterectomy for benign disease (Acute) Status post aorto-coronary artery bypass graft (Acute) Family History Brother CAD (coronary artery disease), Onset Age: 59 of myocardial infarction at age 59 Father CAD (coronary artery disease), Onset Age: 55 Had open heart surgery x3 Grandfather CAD (coronary artery disease), Onset Age: 55 Also of myocardial infarction in the late 50s Social History Smoking and tobacco status: former smoker Vitals/I&O/Wt Last Vital Signs Temp 97.7 F 12/14/19 14:33 Pulse 62 12/14/19 17:00 Resp 16 12/14/19 17:00 BP 122/61 12/14/19 17:12 Pulse Ox 95 12/14/19 17:00 12/14/19 12/14/19 12/14/19 06:59 14:59 22:59 Intake Total 50 / 50 Balance 50 / 50 Weight last 48 hrs Weight 192 lb Physical Exam Const: COMMON NORMALS: oriented x3 and alert ORIENTATION/CONSCIOUSNESS: Yes oriented to person, Yes oriented to place and Yes oriented to time HENMT: COMMON NORMALS: normocephalic HEAD & SCALP: normocephalic; no cranial bruits Neck/C-Spine: COMMON NORMALS: full ROM, supple, no JVD and no carotid bruits GENERAL: Yes trachea midline CERVICAL SPINE: Yes cervical ROM normal Chest: COMMONS NORMALS: palpation of chest normal; negative for inspection of chest normal OTHER: 4 cm superficial dehiscence at the most inferior margin of the sternotomy wound involving the skin and no superficial subcutaneous layer with some PDS suture exposed. In the mid sternotomy incision there is market erythema and a small eschar which is beginning to separate. Sternum is stable to palpation. Resp: COMMON NORMALS: normal respiratory effort, no use of accessory muscles and percussion normal EFFORT & INSPECTION: Yes able to speak in complete sentences and Yes symmetric chest movement AUSCULTATION: diminished lung sounds on the left in the lower lung corbett PERCUSSION: percussion normal Cardio: COMMON NORMALS: no JVD, regular rate, regular rhythm, S1 normal heart sound, S2 normal heart sound, no gallops, no murmurs, no rub and peripheral pulses 2+ throughout JUGULAR VENOUS DISTENTION: no JVD RATE: regular rate RHYTHM: regular rhythm HEART SOUNDS: S1 normal and S2 normal PERIPHERAL PULSES: pulses 2+ throughout Extremity: COMMON NORMALS: negative for normal to inspection (Mild erythema and slight separation at the most proximal left thigh harvest site port incision. This was debrided and redressed with Maxorb) and negative for no pedal edema GENERAL: Yes edema (Bilateral lower extremity 2+ edema below the knees) Neuro: COMMON NORMALS: oriented x3, no focal motor deficits and no sensory deficits noted SENSORIUM/ORIENTATION: Yes alert, Yes oriented to person, Yes oriented to place and Yes oriented to time GAIT: Yes normal gait Data : 12/14/19 15:27 12/14/19 15:27 Micro: Microbiology 12/14/19 14:50 Blood Culture - Preliminary Blood SPECIMEN COLLECTED 12/14/19 15:15 Blood Culture - Preliminary Blood SPECIMEN COLLECTED A&P Assessment and plan (1) Sternal wound dehiscence: 69-year-old obese, diabetic female just over 3 weeks status post CABG x2 for unstable angina. She developed superficial sternal wound dehiscence at the inferior margin of her sternotomy wound. Bony reapproximation appears to be intact. I have recommended formal exploration in the operating room to allow for appropriate instrumentation and visualization to assess the extent of this soft tissue dehiscence. This appears to be mechanical in nature related to her substantial breast tissue and probably less than ideal surveillance after discharge. Rationale was carefully discussed with patient and family. Need for further surgical interventions, possible flap closure, and protracted surveillance were frankly carefully discussed. Proper consents have been provided for review and signature. She will convalesce acutely postoperatively in the ICU for close monitoring. I will seek consultation with our hospitalist colleagues for medical management, particularly of her diabetes. Status: Acute Code(s): T81.32XA - Disruption of internal operation (surgical) wound, not elsewhere classified, initial encounter Attestations Medical Necessity Statement*: Soft tissue sternal wound dehiscence status post CABG Time Spent in Patient Care: Greater than 35 minutes Coding Level of Care Code Acute Refrigerator Tester for Hillary Lambert Diagnoses Sternal wound dehiscence T81.32XA
[2019-12-14 18:11] LABS: INR 1.06 (0.8-1.2)
[2019-12-14 18:12] LABS: Partial Thromboplastin Time 25.4 SECONDS (23.9-36.7)
--- NOTE | 2019-12-14 18:48 | P.ANESASSM_ITS ---
Pre-Anesthetic Assessment Pre-Anesthetic Assessment: Height/Weight: Height 1.68 m Weight 87.09 kg Temp Pulse Resp BP Pulse Ox 97.7 F 67 30 H 111/56 95 12/14/19 14:33 12/14/19 17:45 12/14/19 17:45 12/14/19 18:15 12/14/19 17:45 Preop Diagnosis: left main stenosis Last Intake: 13:00 Social: Social History: Tobacco Packs per day: 1/2 Pack years: 14 Exam: Pre-Anes Outpt Exam: alert, oriented x 3, clear to auscultation bilaterally and regular rate & rhythm Airway: Submandibular: WNL Cervical ROM: WNL MP: 2 CV/HEM: CV/HEM: Afib, Anemia, Arrythmia, CAD and VA : : Chronic renal Insufficiency GI: GI: GERD Metabolic: Metabolic: DM and Thyroid Comments: rx'd x 3 weeks, 100-180 replacement x 50y without recent Neuropsych: Neuropsych: FARIAS Anesthetic Plan: ASA status: 4E Anesthesia: General Meds/Allergies Current Medications: Current Medications Generic Name Dose Route Start Last Admin Trade Name Freq PRN Reason Stop Dose Admin Sodium Chloride 1,000 mls @ 100 m ls/hr 12/14/19 16:00 12/14/19 16:48 Sodium Chloride 0.9% IV 100 mls/hr .Q10H TOSHIA Administration PFSH Anesthesia PFSH: Medical History (Updated 12/14/19 @ 18:47 by Neyda Barrow) Anemia (Acute) CAD (coronary artery disease) (Acute) Chronic kidney disease (Acute) Dyslipidemia (Acute) NSTEMI (non-ST elevated myocardial infarction) (Acute) Postoperative atrial fibrillation (Resolved) Sternal wound dehiscence (Acute) Tubal ligation evaluation (Acute) Surgical History H/O hysterectomy for benign disease (Acute) Status post aorto-coronary artery bypass graft (Acute) Family History Brother CAD (coronary artery disease), Onset Age: 59 of myocardial infarction at age 59 Father CAD (coronary artery disease), Onset Age: 55 Had open heart surgery x3 Grandfather CAD (coronary artery disease), Onset Age: 55 Also of myocardial infarction in the late 50s Social History Smoking and tobacco status: former smoker Data Anesthesia CBC & Chem 7: 12/14/19 15:27 12/14/19 15:27 Other Labs: Laboratory Results - last 48 hr 12/14/19 12/14/19 12/14/19 15:27 15:27 16:10 WBC 7.6 RBC 3.50 L Hgb 10.2 L Hct 35.8 L MCV 102.3 H MCH 29.1 MCHC 28.5 L RDW 16.5 H Plt Count 218 MPV 11.8 H Neut % (Auto) 83.4 Lymph % (Auto) 10.6 [place] % (Auto) 4.4 Eos % (Auto) 0.4 Baso % (Auto) 0.9 Neut # (Auto) 6.3 Lymph # (Auto) 0.8 [place] # (Auto) 0.3 Eos # (Auto) 0.0 Baso # (Auto) 0.1 Nucleated RBC % (auto) 0 Nucleated RBCs # 0.0 PT INR APTT Sodium 138 Potassium 4.5 Chloride 100 Carbon Dioxide 25 Anion Gap 17.5 BUN 17 Creatinine 1.7 H Glucose 123 H Lactic Acid 1.6 Calcium 9.7 Total Bilirubin 0.3 AST 29 ALT 21 Alkaline Phosphatase 112 H Total Protein 7.6 Albumin 3.7 Globulin 3.9 12/14/19 17:55 WBC RBC Hgb Hct MCV MCH MCHC RDW Plt Count MPV Neut % (Auto) Lymph % (Auto) [place] % (Auto) Eos % (Auto) Baso % (Auto) Neut # (Auto) Lymph # (Auto) [place] # (Auto) Eos # (Auto) Baso # (Auto) Nucleated RBC % (auto) Nucleated RBCs # PT 14.20 H INR 1.06 APTT 25.4 Sodium Potassium Chloride Carbon Dioxide Anion Gap BUN Creatinine Glucose Lactic Acid Calcium Total Bilirubin AST ALT Alkaline Phosphatase Total Protein Albumin Globulin Micro: Microbiology 12/14/19 14:50 Blood Culture - Preliminary Blood SPECIMEN COLLECTED 12/14/19 15:15 Blood Culture - Preliminary Blood SPECIMEN COLLECTED Cardiac Studies: No Data to Display
[2019-12-14] MEDS: vancomycin 1,000 MG SDV 1000 MG IRRIGATION ×2 (19:05→19:55)
--- NOTE | 2019-12-14 20:39 | P.OP_ITS ---
Operative Report Date of procedure: December 14, 2019 Pre-op Diagnosis: Status post CABG with soft tissue sternal wound dehiscence Post-op diagnosis: same Procedure Done: Sternal wound exploration, debridement, jet lavage irrigation, and placement of wound VAC dressing Wound dimensions: 12.5 cm in length by 3.5 cm in width by 2.5 cm in depth Specimens removed/disposition: Aerobic and anaerobic cultures obtained Surgeon: Juan Stanford Anesthesia: General Estimated blood loss (mL): 30 Complications: None Findings: Soft tissue separation appears to be for mechanical disruption. No purulent fluid or evidence for abscess noted. Fascial closure and sternal wires were not visible. Sternum stable to palpation. Condition: stable Disposition: ICU Brief History: 69-year-old female status post CABG x2 on November 19 due to unstable angina. She had a protracted postoperative course due to prolonged dilatory needs and altered mental status early after surgery. She was simply discharged on December 02 to [facility] skilled care. She is now home for 2 days with noted what appears to be mechanical separation of the inferior margin of her sternotomy incision which by report, appeared to initiate while under skilled care. I have recommended surgical exploration and debridement as necessary. Details risk of procedure carefully and frankly discussed. Appropriate consents have been reviewed and signed. Procedure: Ms. Samuels was taken to the operating room theater where she was ca refully positioned. She underwent general endotracheal anesthesia. Her entire chest was then sterilely prepped and draped. There appear to be mechanical superficial separation of the inferior margin of the sternotomy incision for about 5 cm. Local exploration was performed with this appearing to extend more proximally. Once we get the deep layer, aerobic and anaerobic cultures were obtained. There was no fluid collection or evidence for durga purulence. Once all undermining had been fully exposed, lateral wound dimensions were 15.5 cm in length by 3.5 cm in width by 2.5 cm in depth. There was no exposed deep fascial sutures or sternal wire. Sternum appears to be stable on palpation, which is consistent with CT scan findings preoperatively. Following full exposure, jet lavage irrigation with 3 L of vancomycin impregnated solution was performed. There was minimal bleeding along the skin edges. Once completed, reexploration revealed no durga evidence for other undermining. Wound VAC dressing was then applied and connected to suction at 125 mmHg. Following this, drain sutures were removed. Drain sites are currently approximated. Maxorb dressing followed by sterile dressing was applied to each site. This was also done to the proximal medial left thigh which was an endoscopic port site which had some modest maceration. Patient was awakened and extubated without difficulty. She was transferred to the ICU bed and taken to the ICU in stable condition. I did vocational rehabilitation counselor with family at completion of the procedure. I will seek medical surveillance from our hospitalist colleagues. For now, we will continue vancomycin and Zosyn pending cultures.
--- NOTE | 2019-12-14 21:04 | PC.NURSE ---
Back from surgery received patient from OR at 2032. lungs clean throughout in all lobes. wound-vac in place with no drainage noted and good suction. bowel sounds in all 4 quadrants. abd soft and nontender. pedial pulses present bilateral and palpable. patient is a-febrile. denies any pain. vital signs stable. family at bedside.
--- NOTE | 2019-12-14 21:12 | PC.PHAR ---
Vancomycin is dosed at 1gm IVPB every 24 hours to produce a predicted trough level of 17.33 (population based pharmacokinetic analysis). A trough level has been ordered from the lab to be obtained before the fourth dose to confirm and adjust if needed. The Zosyn is dosed at 3.375gm IVPB every 8 hours, each dose to be infused over 4 hours per extended infusion protocol.
[2019-12-14 21:59] LABS: Glucose Point of Care 93 mg/dL (70-110)
[2019-12-14] MEDS: enoxaparin 40 mg/0.4 mL Syringe SUBCUT (22:02)
[2019-12-14] MEDS: atorvastatin 40 mg Tablet 20 MG PO (22:03)
[2019-12-14] MEDS: lactated ringers 1,000 ML 150 ML IV (22:04)
--- NOTE | 2019-12-14 23:36 | P.HP_ITS ---
Providers/Chief Complaint Admitting Physician: Juan Stanford MD Chief Complaint: wound dehiscence History of Present Illness Eliana Samuels is a 69 year old female with a recent history of NSTEMI with left main disease disease involving proximal LAD, status post CABG x2 on November 19, [address] Stanford, transient ischemic attack, type 2 diabetes mellitus diet- controlled, chronic kidney disease stage undetermined, atrial fibrillation not on anticoagulation, bilateral lower extremity edema, hypertension, hypothyroidism, on oxygen therapy patient unsure of the amount) since her November admission for hypoxemia, who presented to the emergency room on 12/14/2019 due to concerns of superficial dehiscence at sternal site. Patient is seen status post surgical intervention by Dr. Stanford this evening, is currently in the ICU, doing well, has some anterior chest wall pain, has no significant complaints, no shortness of breath, just feels tired, no fevers, no chills, no nausea, no vomiting, no lightheaded, no dizziness. The medical team was consulted for medical management. Review of Systems Const: Denies: fever, chills, fatigue or malaise Eyes: Denies: change in vision or blurry vision ENMT: Denies: nasal congestion Resp: Denies: shortness of breath, productive cough, non-productive cough or wheezing GI: Denies: abdominal pain, nausea, vomiting, vomiting blood, diarrhea, constipation, blood in stool or black tarry stool : Denies: flank pain, painful urination or urinary frequency Musc: Denies: neck pain or back pain Skin/Breast: Denies: rash Neuro: Denies: headache, dizziness or vertigo Psych: Denies: anxiety or depression Endo: Denies: excessive urination or excessive thirst Medications/Allergies Allergies Allergy/AdvReac Type Severity Reaction Status Date / Time No Known Allergies Allergy Verified 11/16/19 22:57 Additional Medication Information Additional Medication Information: Atorvastatin 20 mg p.o. bedtime Metoprolol 50 twice daily Amiodarone 200 mg once daily Norvasc 10 mg once daily Aspirin 81 mg once daily Plavix 75 mg once daily Furosemide 40 mg once daily Hydralazine 25 mg p.o. every 8 hours [place] 5 1-2 tabs every 4 as needed Levothyroxine 100 mcg once daily Multivitamin Protonix 40 mg once daily PFSH Acute PFSH: Statuses (acute, chronic, etc) shown below reflect problem list status as previously entered and may not be historically accurate Medical History (Updated 12/14/19 @ 18:47 by Neyda Barrow) Anemia (Acute) CAD (coronary artery disease) (Acute) Chronic kidney disease (Acute) Dyslipidemia (Acute) NSTEMI (non-ST elevated myocardial infarction) (Acute) Postoperative atrial fibrillation (Resolved) Sternal wound dehiscence (Acute) Tubal ligation evaluation (Acute) Surgical History H/O hysterectomy for benign disease (Acute) Status post aorto-coronary artery bypass graft (Acute) Family History Brother CAD (coronary artery disease), Onset Age: 59 of myocardial infarction at age 59 Father CAD (coronary artery disease), Onset Age: 55 Had open heart surgery x3 Grandfather CAD (coronary artery disease), Onset Age: 55 Also of myocardial infarction in the late 50s Social History Smoking and tobacco status: former smoker Vitals/I&O/Wt Last Vital Signs Temp 98.0 F 12/14/19 22:30 Pulse 76 12/14/19 23:15 Resp 20 H 12/14/19 23:00 BP 139/60 12/14/19 23:00 Pulse Ox 95 12/14/19 23:15 12/14/19 12/14/19 12/15/19 14:59 22:59 06:59 Intake Total 290 / 290 Balance 290 / 290 Weight last 48 hrs Weight 87.09 kg Physical Exam Const: COMMON NORMALS: no apparent distress and oriented x3 GENERAL APPEARANCE: cooperative and comfortable HENMT: COMMON NORMALS: normocephalic HEAD & SCALP: normocephalic Eye: COMMON NORMALS: PERRL and EOMs intact bilaterally GENERAL EYE: normal appearance of both eyes PUPIL: Yes PERRL Neck/C-Spine: COMMON NORMALS: full ROM, no lymphadenopathy, no JVD and thyroid normal THYROID: thyroid normal Lymph: LYMPHATIC: no lymphadenopathy noted Chest: OTHER: Chest, sternal site, has a wound VAC in place Resp: COMMON NORMALS: normal respiratory effort, no retractions, no use of accessory muscles and clear to auscultation bilaterally AUSCULTATION: clear to auscultation bilaterally Cardio: COMMON NORMALS: no JVD, regular rate, regular rhythm, S1 normal heart sound, S2 normal heart sound, no gallops, no clicks and no murmurs RATE: regular rate RHYTHM: regular rhythm HEART SOUNDS: S1 normal and S2 normal GI: COMMON NORMALS: normal to inspection, nondistended, normoactive bowel sounds, soft to palpation, non-tender and no hepatosplenomegaly PALPATION: Yes soft and Yes no hepatosplenomegaly Extremity: COMMON NORMALS: normal to inspection, full ROM and no pedal edema Neuro: COMMON NORMALS: oriented x3, CN's II-XII intact bilaterally, moves all extremities and no focal motor deficits Psych: COMMON NORMALS: mental status grossly normal, thought process normal and cooperative THOUGHT PROCESS: normal thought process Data : 12/14/19 15:27 12/14/19 15:27 Micro: Microbiology 12/14/19 14:50 Blood Culture - Preliminary Blood SPECIMEN COLLECTED 12/14/19 15:15 Blood Culture - Preliminary Blood SPECIMEN COLLECTED A&P Assessment and plan (1) Sternal wound dehiscence: -Status post ternal wound exploration, debridement, jet lavage irrigation, and placement of wound VAC dressing, postoperative day 0 -Currently wound VAC in place -On broad-spectrum antibiotics, vancomycin and Zosyn -blood cultures, surgical cultures have been obtained -Follow cultures, de-escalate based on clinical progress and cultures -Monitor for fevers, monitor wound VAC output Status: Acute Qualifiers: Encounter type: initial encounter Qualified Code(s): T81.32XA - Disruption of internal operation (surgical) wound, not elsewhere classified, initial encounter Code(s): T81.32XA - Disruption of internal operation (surgical) wound, not elsewhere classified, initial encounter (2) Dyslipidemia: Status: Acute Code(s): E78.5 - Hyperlipidemia, unspecified (3) Decreased visual acuity: Status: Resolved Code(s): H54.7 - Unspecified visual loss (4) Glucose intolerance: Sliding scale Status: Acute Code(s): E74.39 - Other disorders of intestinal carbohydrate absorption (5) Anemia: Status: Acute Qualifiers: Anemia type: other cause Other causes of anemia: acute posthemorrhagic Qualified Code(s): D62 - Acute posthemorrhagic anemia Code(s): D64.9 - Anemia, unspecified (6) CAD (coronary artery disease): Status: Acute Qualifiers: Coronary Disease-Associated Artery/Lesion type: [place] artery [place] vs. transplanted heart: [place] heart Associated angina: with unstable angina Qualified Code(s): I25.110 - Atherosclerotic heart disease of [place] coronary artery with unstable angina pectoris Code(s): I25.10 - Atherosclerotic heart disease of [place] coronary artery without angina pectoris (7) Atrial fibrillation with RVR: Not on anticoagulation On metoprolol and amiodarone Status: Resolved Code(s): I48.91 - Unspecified atrial fibrillation (8) Acute kidney injury superimposed on CKD: Status: Resolved Code(s): N17.9 - Acute kidney failure, unspecified; N18.9 - Chronic kidney disease, unspecified (9) Status post aorto-coronary artery bypass graft: Status: Acute Code(s): Z95.1 - Presence of aortocoronary bypass graft (10) Chronic kidney disease: Creatinine up to 1.7 Has received fluids in the operating room Follow creatinine Hold Lasix Status: Acute Qualifiers: Chronic kidney disease stage: stage 2 (mild) Qualified Code(s): N18.2 - Chronic kidney disease, stage 2 (mild) Code(s): N18.9 - Chronic kidney disease, unspecified (11) Hypothyroid: Status: Chronic Qualifiers: Hypothyroidism type: acquired Qualified Code(s): E03.9 - Hypothyroidism, unspecified Code(s): E03.9 - Hypothyroidism, unspecified (12) Accelerated essential hypertension: Currently hydralazine is on hold Status: Chronic Code(s): I10 - Essential (primary) hypertension Attestations Medical Necessity Statement*: Patient requires hospitalization, greater than 2 midnights, inpatient, for sternal wound dehiscence Coding Level of Care Code Acute Gimp Buttonhole Machine Operator for Chg Fwd Diagnoses Sternal wound dehiscence T81.32XA Encounter type: initial encounter Dyslipidemia E78.5 Decreased visual acuity H54.7 Glucose intolerance E74.39 Anemia D62 Anemia type: other cause Other causes of anemia: acute posthemorrhagic CAD (coronary artery disease) I25.110 Coronary Disease-Associated Artery/Lesion type: [place] artery [place] vs. transplanted heart: [place] heart Associated angina: with unstable angina Atrial fibrillation with RVR I48.91 Acute kidney injury superimposed on CKD N17.9; N18.9 Status post aorto-coronary artery bypass graft Z95.1 Chronic kidney disease N18.2 Chronic kidney disease stage: stage 2 (mild) Hypothyroid E03.9 Hypothyroidism type: acquired Accelerated essential hypertension I10
[2019-12-15] VITALS (19 sets, daily range): BP systolic 113–166; BP diastolic 49–87; PULSE 58–83; RESP 15–24; TEMP 36.7; O2SAT 89–99
[2019-12-15 05:07] LABS: Basophils # 0.1 10^3/uL (0.0-0.1); Basophils % 0.9 %; Eosinophils # 0.1 10^3/uL (0.0-0.8); Hematocrit 28.4 % (37.0-47.0); Hemoglobin 8.7 g/dL (11.5-15.3); Lymphocytes # 1.2 10^3/uL (0.8-4.8); Lymphocytes % 21.7 %; Mean Corpuscular HGB Conc 30.6 g/dL (30.0-36.0); Mean Corpuscular Hemoglobin 30.2 pg (28.0-34.0); Mean Corpuscular Volume 98.6 fL (81-99); Mean Platelet Volume 12.4 fL (7.4-10.4); Monocytes # 0.3 10^3/uL (0.2-0.9); Monocytes % 5.6 %; Neutrophils # 3.7 10^3/uL (1.8-7.7); Neutrophils % 69.2 %; Nucleated Red Blood Cells % 0 %; Platelet Count 157 10^3/cmm (130-400); Red Blood Count 2.88 10^6/uL (4.1-5.3); Red Cell Distribution Width 16.5 % (12.1-15.1); White Blood Count 5.4 10^3/uL (4.0-10.0)
--- NOTE | 2019-12-15 06:07 | P.PN_ITS ---
Subjective Subjective: Interval history: Postop day #1 status post sternal wound exploration with superficial debridement, jet lavage irrigation and placement of wound VAC Patient slept reasonably well last night. CBC shows modest anemia with hemoglobin 8.7. White count is down to 5000. Metabolic panel is still pending. Culture results and Gram stain are pending. Wound VAC remains in place. Vitals/I&O/Wt Last Vital Signs Temp 98.0 F 12/15/19 04:08 Pulse 67 12/15/19 04:00 Resp 18 12/15/19 04:00 BP 130/64 12/15/19 04:00 Pulse Ox 97 12/15/19 04:00 12/14/19 12/14/19 12/15/19 14:59 22:59 06:59 Intake Total 290 / 290 50 / 340 Output Total 375 / 375 Balance 290 / 290 -325 / -35 Weight last 48 hrs Weight 192 lb Physical Exam Chest: OTHER: Wound VAC dressing remains in place. Data : 12/15/19 04:08 12/14/19 15:27 Micro: Microbiology 12/14/19 14:50 Blood Culture - Preliminary Blood SPECIMEN COLLECTED 12/14/19 15:15 Blood Culture - Preliminary Blood SPECIMEN COLLECTED A&P Assessment and plan (1) Sternal wound dehiscence: Postop day #1 Out of bed in chair. Advance diet. Will assess this afternoon for transfer to [facility] Will need to arrange for outpatient wound VAC Greatly appreciate the expertise of our hospitalist colleagues and Dr. Chamorro Awaiting results of BMP. Continue IV fluids until confirming that creatinine is to baseline. Status: Acute Qualifiers: Encounter type: initial encounter Qualified Code(s): T81.32XA - Disrup tion of internal operation (surgical) wound, not elsewhere classified, initial encounter Code(s): T81.32XA - Disruption of internal operation (surgical) wound, not elsewhere classified, initial encounter Attestations Medical Necessity Statement*: Superficial mechanical wound dehiscence status post exploration Time Spent in Patient Care: less than 15 minutes Coding Level of Care Code Acute Theology Teacher for Hillary Lambert Diagnoses Sternal wound dehiscence T81.32XA Encounter type: initial encounter
[2019-12-15] MEDS: piperacillin-tazobactam 3.375 GM in sodium chloride 0.9% (plus) 50 ML IV ×3 (06:18→22:17)
[2019-12-15] MEDS: lactated ringers 1,000 ML 150 ML IV (06:27)
[2019-12-15 07:12] LABS: Alanine Aminotransferase 22 U/L (0-33); Albumin Level 2.8 g/dL (3.5-5.2); Alkaline Phosphatase 90 IU/L (35-105); Aspartate Amino Transferase 32 U/L (0-32); Blood Urea Nitrogen 10 mg/dL (8-23); Calcium 8.9 mg/dL (8.5-10.5); Carbon Dioxide 25 mmol/L (22-29); Chloride 103 mmol/L (98-107); Globulin 2.8 g/dL (1.3-4.6); Glucose 96 mg/dL (65-115); Sodium 140 mmol/L (136-145); Total Bilirubin 0.2 mg/dL (0.15-1.2); Total Protein 5.6 g/dL (6.6-8.7)
[2019-12-15 07:18] LABS: Glucose Point of Care 90 mg/dL (70-110)
--- NOTE | 2019-12-15 07:44 | P.PN_ITS ---
Subjective Subjective: Interval history: Consult note, history and physical reviewed. Patient without complaints today. Minor chest discomfort. Medications: Reviewed: Yes Vitals/I&O/Wt Last Vital Signs Temp 98.0 F 12/15/19 04:08 Pulse 67 12/15/19 04:00 Resp 18 12/15/19 04:00 BP 130/64 12/15/19 04:00 Pulse Ox 97 12/15/19 04:00 12/14/19 12/15/19 12/15/19 22:59 06:59 14:59 Intake Total 290 / 290 1050 / 1340 Output Total 500 / 500 Balance 290 / 290 550 / 840 Weight last 48 hrs Weight 87.09 kg Physical Exam Narrative: EXAM NARRATIVE: General exam no apparent distress Cardiovascular regular rate and rhythm without murmur Lungs clear Abdomen is soft, positive bowel sounds Extremities trace edema Data : 12/15/19 04:08 12/15/19 06:44 Micro: Microbiology 12/14/19 14:50 Blood Culture - Preliminary Blood SPECIMEN COLLECTED 12/14/19 15:15 Blood Culture - Preliminary Blood SPECIMEN COLLECTED A&P Assessment and plan (1) Sternal wound dehiscence: Postoperative day #1. Wound VAC in place. Continue wound VAC On vancomycin and Zosyn. Cultures pending. We will continue this medication currently. Status: Acute Qualifiers: Encounter type: initial encounter Qualified Code(s): T81.32XA - D isruption of internal operation (surgical) wound, not elsewhere classified, initial encounter Code(s): T81.32XA - Disruption of internal operation (surgical) wound, not elsewhere classified, initial encounter (2) Acute kidney injury superimposed on CKD: Renal function vastly improved from admission. Appears to be back to [facility]. Status: Resolved Code(s): N17.9 - Acute kidney failure, unspecified; N18.9 - Chronic kidney disease, unspecified Additional A&P Information Coronary artery disease status post coronary artery bypass grafting November 2014, 2 vessels. On aspirin, Plavix, statin, beta-radha Type 2 diabetes, sliding scale insulin History of TIA, on aspirin, statin History of postoperative atrial fibrillation. Resolved. On amiodarone 200 mg daily Hypertension, controlled Hypothyroidism Hyperlipidemia DVT prophylaxis with Lovenox Attestations Medical Necessity Statement*: Needs continued hospitalization for close management of wound dehiscence. Coding Level of Care Code Acute Gas Compressor Turbine Operator for Chg Fwd Diagnoses Sternal wound dehiscence T81.32XA Encounter type: initial encounter Acute kidney injury superimposed on CKD N17.9; N18.9
[2019-12-15] MEDS: pantoprazole DR 40 mg Tablet PO ×2 (08:40→17:35)
[2019-12-15] MEDS: clopidogrel 75 mg Tablet PO (08:40)
[2019-12-15] MEDS: iron polysaccharide complex 150 mg Capsule PO ×2 (08:40→17:35)
[2019-12-15] MEDS: levothyroxine 100 mcg Tablet PO (08:40)
[2019-12-15] MEDS: metoprolol tartrate 50 mg Tablet PO ×2 (08:40→17:35)
[2019-12-15] MEDS: amiodarone 200 mg Tablet PO (08:40)
[2019-12-15] MEDS: aspirin 81 mg EC Tablet PO (08:40)
[2019-12-15] MEDS: multivitamin therapeutic Tablet 1 TAB PO (08:40)
[2019-12-15] MEDS: HYDROcodone-acetaminophen 5-325 mg Tablet PO ×2 (09:18→20:23)
[2019-12-15 11:13] LABS: Glucose Point of Care 133 mg/dL (70-110)
[2019-12-15 17:06] LABS: Glucose Point of Care 95 mg/dL (70-110)
--- NOTE | 2019-12-15 17:24 | PC.CHAP ---
Pastoral Care Encounter/Spiritual Assessment Type of Contact [] Declined rn intensive care unit visit [] Patient/Family/Request visit [] Outpatient visit [] Follow-up visit [] Physician referral [] Code/Alert [x] Routine visit [] Staff referral [] Actively dying [] Patient sleeping [] Family support [] [] Out of room [] Palliative care [] [] Receiving care in room [] Pre-surgical visit [] Trauma [] Long length of stay [x] ICU visit [] Other: Relational/Emotional Strength [x] Patient feels connected with others/family/visitors/staff [] Distress [] Loneliness/isolation [] Abandonment Spirituality of Patient [] Person of Kaylen [] Attends Religion of their Kaylen [] Believes in Prayer [] Reads Bible or Jainism materials [x] There are Spiritual issues to be addressed Health Care Marketing Manager Interventions [] Prayer [x] Active listening [x] Non-anxious presence [x] Spiritual/emotional support [] Crisis/trauma care [] Spiritual counseling [] Bereavement support [] Provided bereavement packet [] Provided Bible/devotional materials [] Provided toy/stuffed animal, coloring book to patient or family member [] Provided Communion [] Anointing/[place] [] Salvation [x] Completed spiritual assessment [] Other: Impact on Illness or Injury [] Angry [] Fearful [] Anxious [] Often cries [] Exhaustion [] Unable to work [] Unable to attend buddhist [] Unable to walk/stand [] Unable to read [] Unable to drive [] Unable to eat/drink [] Unable to sleep [] Unable to be with family [] Patient intubated [] Other: Summary Patient expressed a need to remain in the hospital until she is better. She stated that she felt as though she was just shoved in a room and left at the nursing facility. Stated that her having to take care of herself is what put her back i9n the hospital. Patient declined prayer but visited with rn intensive care unit and was able to express her emotional hurt. Patient visited by Health Care Marketing Manager Cash Muniz. Time spent with patient 10 minutes
--- NOTE | 2019-12-15 19:44 | PC.NURSE ---
up to bedside commode patient up to bedside commode with two nurse assist. patient educated on sternal precautions. patient tolerated activity well.
[2019-12-15] MEDS: vancomycin 1,000 MG in sodium chloride 0.9% 250 ML 250 MG IV (20:21)
[2019-12-15] MEDS: atorvastatin 40 mg Tablet 20 MG PO (20:24)
[2019-12-15] MEDS: enoxaparin 40 mg/0.4 mL Syringe SUBCUT (20:24)
[2019-12-15 20:49] LABS: Glucose Point of Care 132 mg/dL (70-110)
[2019-12-15] MEDS: lactated ringers 1,000 ML 30 ML IV (22:18)
[2019-12-16] VITALS (21 sets, daily range): BP systolic 107–148; BP diastolic 58–79; PULSE 65–80; RESP 13–25; TEMP 36.8–36.9; O2SAT 86–96
[2019-12-16] MEDS: HYDROcodone-acetaminophen 5-325 mg Tablet PO ×3 (02:02→20:27)
[2019-12-16 05:06] LABS: Basophils % 0.6 %; Eosinophils # 0.2 10^3/uL (0.0-0.8); Eosinophils % 3.7 %; Hematocrit 26.7 % (37.0-47.0); Hemoglobin 8.1 g/dL (11.5-15.3); Lymphocytes % 20.5 %; Mean Corpuscular HGB Conc 30.3 g/dL (30.0-36.0); Mean Corpuscular Hemoglobin 29.1 pg (28.0-34.0); Mean Platelet Volume 11.7 fL (7.4-10.4); Monocytes # 0.3 10^3/uL (0.2-0.9); Monocytes % 5.1 %; Neutrophils # 3.4 10^3/uL (1.8-7.7); Neutrophils % 69.7 %; Nucleated Red Blood Cells % 0 %; Platelet Count 150 10^3/cmm (130-400); Red Blood Count 2.78 10^6/uL (4.1-5.3); Red Cell Distribution Width 16.6 % (12.1-15.1); White Blood Count 4.9 10^3/uL (4.0-10.0)
[2019-12-16] MEDS: piperacillin-tazobactam 3.375 GM in sodium chloride 0.9% (plus) 50 ML IV ×3 (05:26→21:41)
[2019-12-16 05:36] LABS: Anion Gap 15.2 (5-19); Blood Urea Nitrogen 11 mg/dL (8-23); Carbon Dioxide 25 mmol/L (22-29); Chloride 105 mmol/L (98-107); Glucose 101 mg/dL (65-115); Osmolality Calculated 288 mOsm/kg (285-295); Potassium 4.2 mmol/L (3.5-5.1); Sodium 141 mmol/L (136-145)
--- NOTE | 2019-12-16 06:52 | P.PN_ITS ---
Subjective Subjective: Interval history: Postop day #2 status post sternal wound exploration and soft tissue debridement. Sleeping on rounds this morning. Nursing service reports patient had a very good night. She is noted to be moderately anemic which I think is probably delusional. She is asymptomatic with stable vital signs without tachycardia. Tolerating diet well. Only modest incisional discomfort. Vitals/I&O/Wt Last Vital Signs Temp 98.4 F 12/16/19 04:00 Pulse 67 12/16/19 04:00 Resp 17 12/16/19 04:00 BP 124/59 12/16/19 04:00 Pulse Ox 92 12/16/19 04:00 12/15/19 12/15/19 12/16/19 14:59 22:59 06:59 Intake Total 627.5 / 627.5 722 / 1349.5 300 / 1649.5 Output Total 230 / 230 350 / 580 Balance 627.5 / 627.5 492 / 1119.5 -50 / 1069.5 Weight last 48 hrs Weight 192 lb Physical Exam Chest: OTHER: Wound VAC dressing remains in place without air leak and minimal drainage. Resp: COMMON NORMALS: normal respiratory effort and clear to auscultation bilaterally AUSCULTATION: clear to auscultation bilaterally Cardio: COMMON NORMALS: regular rate and regular rhythm RATE: regular rate RHYTHM: regular rhythm Data : 12/16/19 04:53 12/16/19 04:53 Micro: Microbiology 12/14/19 14:50 Blood Culture - Preliminary Blood NEGATIVE TO DATE 12/14/19 15:15 Blood Culture - Preliminary Blood NEGATIVE TO DATE A&P Assessment and plan (1) Sternal wound dehiscence: Postop day #2 status post sternal wound exploration and debridement and placement of wound VAC. Progressing well. I will plan to transfer to [facility] and discharge within the next 24 to 48 hours if cleared by the hospitalist service. Will plan to have next wound VAC change performed through the wound care clinic if she is discharged soon. Continue sternal precautions. Status: Acute Qualifiers: Encounter type: initial encounter Qualified Code(s): T81.32XA - Disruption of internal operation (surgical) wound, not elsewhere classified, initial encounter Code(s): T81.32XA - Disruption of internal operation (surgical) wound, not elsewhere classified, initial encounter Attestations Medical Necessity Statement*: Status post CABG with soft tissue sternal wound dehiscence status post debridement and wound VAC placement Time Spent in Patient Care: less than 15 minutes Coding Level of Care Code Acute Grind Operator for Jovanig Fwd Diagnoses Sternal wound dehiscence T81.32XA Encounter type: initial encounter
[2019-12-16 07:06] LABS: Glucose Point of Care 100 mg/dL (70-110)
[2019-12-16] MEDS: iron polysaccharide complex 150 mg Capsule PO ×2 (08:07→18:24)
[2019-12-16] MEDS: aspirin 81 mg EC Tablet PO (08:07)
[2019-12-16] MEDS: levothyroxine 100 mcg Tablet PO (08:07)
[2019-12-16] MEDS: FUROsemide 10 mg/mL SDV 2mL 20 MG IVP (08:07)
[2019-12-16] MEDS: metoprolol tartrate 50 mg Tablet PO ×2 (08:07→18:24)
[2019-12-16] MEDS: multivitamin therapeutic Tablet 1 TAB PO (08:08)
[2019-12-16] MEDS: pantoprazole DR 40 mg Tablet PO ×2 (08:08→18:24)
[2019-12-16] MEDS: amiodarone 200 mg Tablet PO (08:08)
[2019-12-16] MEDS: clopidogrel 75 mg Tablet PO (08:08)
[2019-12-16 11:21] LABS: Glucose Point of Care 143 mg/dL (70-110)
[2019-12-16 11:21] LABS: Glucose Point of Care 99 mg/dL (70-110)
[2019-12-16 11:21] LABS: Glucose Point of Care 137 mg/dL (70-110)
--- NOTE | 2019-12-16 11:44 | PC.CHAP ---
Pastoral Care Encounter/Spiritual Assessment Type of Contact [] Declined milk sampler visit [] Patient/Family/Request visit [] Outpatient visit [] Follow-up visit [] Physician referral [] Code/Alert [x] Routine visit [] Staff referral [] Actively dying [] Patient sleeping [] Family support [] [] Out of room [] Palliative care [] [] Receiving care in room [] Pre-surgical visit [] Trauma [] Long length of stay [x] ICU visit [] Other: Relational/Emotional Strength [] Patient feels connected with others/family/visitors/staff [] Distress [] Loneliness/isolation [] Abandonment Spirituality of Patient [x] Person of Kaylen [] Attends Christian of their Kaylen [] Believes in Prayer [] Reads Bible or Anabaptism materials [] There are Spiritual issues to be addressed Commercial Loan Assistant Interventions [x] Prayer [] Active listening [] Non-anxious presence [] Spiritual/emotional support [] Crisis/trauma care [] Spiritual counseling [] Bereavement support [] Provided bereavement packet [] Provided Bible/devotional materials [] Provided toy/stuffed animal, coloring book to patient or family member [] Provided Communion [] Anointing/Allred [] Salvation [x] Completed spiritual assessment [] Other: Impact on Illness or Injury [] Angry [] Fearful [] Anxious [] Often cries [] Exhaustion [] Unable to work [] Unable to attend restorationist [] Unable to walk/stand [] Unable to read [] Unable to drive [] Unable to eat/drink [] Unable to sleep [] Unable to be with family [] Patient intubated [] Other: Summary Patient upbeat. Note return visit by patient regarding heart surgery. Time spent with patient 15min
[2019-12-16] MEDS: ipratropium-albuterol 3 mL Neb INHALATION ×2 (14:19→20:20)
--- NOTE | 2019-12-16 17:02 | P.PN_ITS ---
Subjective Subjective: Interval history: Eliana reports she is doing okay. She got fairly short of breath last night. She is better currently. Medications: Reviewed: Yes Vitals/I&O/Wt Last Vital Signs Temp 98.5 F 12/16/19 08:00 Pulse 74 12/16/19 14:25 Resp 18 12/16/19 14:21 BP 107/79 12/16/19 12:00 Pulse Ox 96 12/16/19 14:21 12/16/19 12/16/19 12/16/19 06:59 14:59 22:59 Intake Total 300 / 1649.5 410 / 410 Output Total 350 / 580 Balance -50 / 1069.5 410 / 410 Physical Exam Narrative: EXAM NARRATIVE: General exam no apparent distress Cardiovascular regular rate and rhythm without murmur Lungs coarse bibasilar Abdomen is soft, positive bowel sounds Extremities trace edema Data : 12/16/19 04:53 12/16/19 04:53 Micro: Microbiology 12/14/19 19:45 Anaerobic Culture - Preliminary Chest Wound Culture - Preliminary 12/14/19 19:45 Anaerobic Culture - Preliminary Chest Wound Culture - Preliminary 12/14/19 15:20 Wound Culture - Preliminary Chest 12/14/19 14:50 Blood Culture - Preliminary Blood NEGATIVE TO DATE 12/14/19 15:15 Blood Culture - Preliminary Blood NEGATIVE TO DATE A&P Assessment and plan (1) Sternal wound dehiscence: Postoperative day #2. Wound VAC in place. Continue wound VAC On vancomycin and Zosyn. Cultures negative to date Status: Acute Qualifiers: Encounter type: initial encounter Qualified Code(s): T81.32XA - Disruption of internal operation (surgical) wound, not elsewhere classified, initial encounter Code(s): T81.32XA - Disruption of internal operation (surgical) wound, not elsewhere classified, initial encounter (2) Acute kidney injury superimposed on CKD: Renal function vastly improved from admission. Appears to be back to baseline. Status: Resolved Code(s): N17.9 - Acute kidney failure, unspecified; N18.9 - Chronic kidney disease, unspecified Additional A&P Information Dyspnea. May be slightly fluid overloaded from hydration on admission. Lasix 20 mg IV x1 coronary artery disease status post coronary artery bypass grafting November 2014, 2 vessels. On aspirin, Plavix, statin, beta-radha Type 2 diabetes, sliding scale insulin History of TIA, on aspirin, statin History of postoperative atrial fibrillation. Resolved. On amiodarone 200 mg daily Hypertension, controlled Hypothyroidism Hyperlipidemia DVT prophylaxis with Lovenox Okay with transfer to telemetry Attestations Medical Necessity Statement*: Needs continued hospitalization for close follow-up of wound dehiscence Coding Level of Care Code Acute Assistant Real Estate Manager for Hillary Lambert Diagnoses Sternal wound dehiscence T81.32XA Encounter type: initial encounter Acute kidney injury superimposed on CKD N17.9; N18.9
[2019-12-16 17:23] LABS: Glucose Point of Care 111 mg/dL (70-110)
[2019-12-16 20:23] LABS: Glucose Point of Care 148 mg/dL (70-110)
[2019-12-16] MEDS: vancomycin 1,000 MG in sodium chloride 0.9% 250 ML 250 MG IV (20:26)
[2019-12-16] MEDS: atorvastatin 40 mg Tablet 20 MG PO (20:27)
[2019-12-16] MEDS: enoxaparin 40 mg/0.4 mL Syringe SUBCUT (20:28)
[2019-12-17] VITALS (16 sets, daily range): BP systolic 130–185; BP diastolic 68–98; PULSE 66–80; RESP 18–31; TEMP 36.7–37.1; O2SAT 92–96
[2019-12-17] MEDS: ipratropium-albuterol 3 mL Neb INHALATION ×3 (03:04→15:48)
[2019-12-17 05:38] LABS: Basophils % 0.6 %; Eosinophils # 0.1 10^3/uL (0.0-0.8); Eosinophils % 2.6 %; Hematocrit 29.7 % (37.0-47.0); Lymphocytes % 20.6 %; Mean Corpuscular HGB Conc 30.3 g/dL (30.0-36.0); Mean Corpuscular Hemoglobin 29.4 pg (28.0-34.0); Mean Corpuscular Volume 97.1 fL (81-99); Mean Platelet Volume 11.8 fL (7.4-10.4); Monocytes # 0.2 10^3/uL (0.2-0.9); Monocytes % 4.4 %; Neutrophils # 3.6 10^3/uL (1.8-7.7); Neutrophils % 71.4 %; Nucleated Red Blood Cells % 0 %; Platelet Count 144 10^3/cmm (130-400); Red Blood Count 3.06 10^6/uL (4.1-5.3); Red Cell Distribution Width 16.8 % (12.1-15.1)
[2019-12-17 06:20] LABS: Anion Gap 15.2 (5-19); Blood Urea Nitrogen 9 mg/dL (8-23); Calcium 8.9 mg/dL (8.5-10.5); Carbon Dioxide 25 mmol/L (22-29); Chloride 103 mmol/L (98-107); Glucose 95 mg/dL (65-115); Osmolality Calculated 284 mOsm/kg (285-295); Potassium 4.2 mmol/L (3.5-5.1); Sodium 139 mmol/L (136-145)
[2019-12-17] MEDS: piperacillin-tazobactam 3.375 GM in sodium chloride 0.9% (plus) 50 ML IV (06:23)
[2019-12-17] MEDS: HYDROcodone-acetaminophen 5-325 mg Tablet PO (06:24)
--- NOTE | 2019-12-17 06:59 | PM.DCS ---
Discharge Providers Date of Admission: 12/14/19 17:14 Date of Discharge: December 17, 2019 Attending Provider at Admission: Juan Stanford MD Attending Provider at Discharge: Juan Stanford MD Consults: Dr. Green, hospitalist service Diagnoses at Discharge Discharge Diagnosis (1) Sternal wound dehiscence: Status: Acute Qualifiers: Encounter type: initial encounter Qualified Code(s): T81.32XA - Disruption of internal operation (surgical) wound, not elsewhere classified, initial encounter Reason for Visit Reason for Visit: Reason For Visit: wound dehiscence Hospital Course Hospital Course: 69-year-old female status post CABG x2 on November 19 utilizing RIVERA to LAD and vein graft to the high ramus artery. Initial hospital course was protracted due to prolonged dilatory needs and altered mental status early which resolved. She was separately discharged to [facility]. Apparently, care there was less than ideal. She was discharged home and represented within 24 hours with clear suppuratiion early separation of the inferior margin of her sternotomy wound. She underwent local exploration and debridement, jet lavage irrigation and placement of a wound VAC dressing. This appeared to be mechanical separation. Initial cultures have been negative. There was no bony involvement. No exposed sternal wire. She was empirically placed on vancomycin and Zosyn. Acute on chronic renal insufficiency perhaps exacerbated by Bactrim resolved with IV hydration and discontinuation of the Bactrim. She has been slowly progressing well. She will be discharged to home today with home health services through [facility]. She will follow-up tomorrow in wound care services for planned wound VAC dressing change. I will be seeing her 3 wound care services twice weekly. She will also follow-up with [facility] services. She will also follow-up with heart care services in [address] Stewart. Currently, the time of discharge she is in stable condition. She will be on home oxygen 2 L nasal cannula Physical Exam Chest: OTHER: Wound VAC dressing is currently in place. There is no air leak. System appears to be functioning properly. Cardio: COMMON NORMALS: regular rate and regular rhythm RATE: regular rate RHYTHM: regular rhythm Extremity: OTHER: There is minimal peripheral edema which has improved since hospitalization. Discharge Data Data Completed and Pending: Completed Studies During Hospitalization Category Date Time Status CT chest w con* [id number] Urgent Cat Scan 12/14/19 14:53 Completed XR chest 1V mp ble [id number] Stat Exams 12/14/19 14:43 Completed Pending at discharge Category Date Time Status Anaerobic Culture Routine Lab 12/14/19 19:45 Results Anaerobic Culture Routine Lab 12/14/19 19:45 Results Blood Culture Sta t Lab 12/14/19 14:50 Results Vancomycin Trough Timed Lab 12/17/19 20:00 Ordered Wound Culture Rou rudi Lab 12/14/19 19:45 Results Wound Culture Rou rudi Lab 12/14/19 19:45 Results Wound Culture Sta t Lab 12/14/19 15:20 Results Labs from last 24 hours 12/17/19 12/17/19 12/16/19 05:15 05:15 20:20 WBC 5.0 RBC 3.06 L Hgb 9.0 L Hct 29.7 L MCV 97.1 MCH 29.4 MCHC 30.3 RDW 16.8 H Plt Count 144 MPV 11.8 H Neut % (Auto) 71.4 Lymph % (Auto) 20.6 Maverick % (Auto) 4.4 Eos % (Auto) 2.6 Baso % (Auto) 0.6 Neut # (Auto) 3.6 Lymph # (Auto) 1.0 Maverick # (Auto) 0.2 Eos # (Auto) 0.1 Baso # (Auto) 0.0 Nucleated RBC % (a uto) 0 Nucleated RBCs # 0.0 Sodium 139 Potassium 4.2 Chloride 103 Carbon Dioxide 25 Anion Gap 15.2 BUN 9 Creatinine 1.2 H Glucose 95 POC Glucose 148 Calculated Osmolal ity 284 L Calcium 8.9 12/16/19 12/16/19 12/16/19 17:20 11:18 11:17 WBC RBC Hgb Hct MCV MCH MCHC RDW Plt Count MPV Neut % (Auto) Lymph % (Auto) Maverick % (Auto) Eos % (Auto) Baso % (Auto) Neut # (Auto) Lymph # (Auto) Maverick # (Auto) Eos # (Auto) Baso # (Auto) Nucleated RBC % (a uto) Nucleated RBCs # Sodium Potassium Chloride Carbon Dioxide Anion Gap BUN Creatinine Glucose POC Glucose 111 143 137 Calculated Osmolal ity Calcium 12/16/19 12/16/19 11:14 06:59 WBC RBC Hgb Hct MCV MCH MCHC RDW Plt Count MPV Neut % (Auto) Lymph % (Auto) Maverick % (Auto) Eos % (Auto) Baso % (Auto) Neut # (Auto) Lymph # (Auto) Maverick # (Auto) Eos # (Auto) Baso # (Auto) Nucleated RBC % (a uto) Nucleated RBCs # Sodium Potassium Chloride Carbon Dioxide Anion Gap BUN Creatinine Glucose POC Glucose 99 100 Calculated Osmolal ity Calcium Vitals: Last Vital Signs Temp 98.3 F 12/16/19 22:00 Pulse 80 12/17/19 04:00 Resp 21 H 12/17/19 04:00 BP 154/79 12/17/19 04:00 Pulse Ox 94 12/17/19 03:04 Discharge Plan Discharge Patient Disposition: Home Health Service Condition: Stable Prescriptions: [place] 5-325 mg tablet 1 tab PO Q8H PRN (Reason: pain) Qty: 20 RF: 0 levofloxacin [Levaquin] 500 mg tablet 500 mg PO DAILY 7 Days RF: 0 Continued furosemide 40 mg Tablet 40 mg PO DAILY Qty: 30 RF: 0 atorvastatin 40 mg Tablet 20 mg PO BEDTIME Qty: 30 RF: 0 hydrocodone-acetaminophen 5-325 mg Tablet 1 - 2 tab PO Q4H PRN (Reason: Moderate To Severe Pain) Qty: 10 RF: 0 polysaccharide iron complex [Ferrex 150] 150 mg iron Capsule 150 mg PO BIDWM Qty: 60 RF: 0 hydralazine 25 mg Tablet 25 mg PO Q8H Qty: 90 RF: 0 clopidogrel 75 mg Tablet 75 mg PO DAILY Qty: 30 RF: 0 aspirin 81 mg Tablet,Delayed Release (Dr/Ec) 81 mg PO DAILY Qty: 30 RF: 0 levothyroxine [Levoxyl] 100 mcg Tablet 100 mcg PO DAILY Qty: 30 RF: 0 meclizine 25 mg Tablet 25 mg PO TID PRN (Reason: Dizziness) Qty: 10 RF: 0 insulin aspart U-100 [Novolog U-100 Insulin aspart] 100 unit/mL Solution 0 unit SUBCUT WM&BEDTIME Qty: 100 RF: 0 pantoprazole 40 mg Tablet,Delayed Release (Dr/Ec) 40 mg PO DAILY Qty: 30 RF: 0 metoprolol tartrate 50 mg Tablet 50 mg PO BID Qty: 60 RF: 0 docusate sodium 100 mg Capsule 100 mg PO DAILY PRN (Reason: Constipation) Qty: 10 RF: 0 bisacodyl 5 mg Tablet,Delayed Release (Dr/Ec) 10 mg PO DAILY PRN (Reason: Constipation) Qty: 10 RF: 0 Thera 400 mcg Tablet 1 tab PO DAILY Qty: 30 RF: 0 liothyronine 5 mcg Tablet 5 mcg PO DAILY Qty: 30 RF: 0 amlodipine [Norvasc] 10 mg Tablet 10 mg PO DAILY Qty: 30 RF: 0 Discontinued amiodarone 200 mg Tablet 200 mg PO DAILY Qty: 30 RF: 0 prednisone 5 mg Tablet 5 mg PO DAILY 14 Days Qty: 14 RF: 0 nystatin [Nyamyc] 100,000 unit/gram Powder 1 applic topical Q12H Qty: 10 RF: 0 sulfamethoxazole-trimethoprim [Bactrim DS] 800-160 mg tablet 1 tab PO DAILY 14 Days Qty: 14 RF: 0 Discharge Orders: Discharge Order (Routine); Ordered 12/17/19 Ordered By: Juan Stanford Other Ambulatory Orders: DME: Oxygen (Order) Location: None Selected Ordered By: Juan Stanford Referrals: [facility]ARE [facility] [Provider Group] - 2 weeks (to f/u with polisher eyeglass frames for medical review. Sternotomy wound care will be through wound clinic) WOUND [facility]ARE CLINIC, [Staff Physician] - 12/18/19 (Please contact Wound Care Clinic today to confirm f/u appointment tomorrow for planned wound vac dressing change. Pt. must have and bring with her wound vac materials. Contact Mario or Emely at Wound Care today to confirm all needed materials and appt. time.) Discharge Diet: Advance as tolerated Discharge Activity: Limit activity as instructed and Oxygen as instructed Activity Restrictions/Additional Instructions: No lifting, pushing or pulling more than 5 pounds with arms. Do not raise arms above head Please confirm we have answered all your questions before discharge. Confirm we have given you contact numbers for Wound Care, [facility], and Heart Care Clinics before discharge. Confirm we have your oxygen service set up and portable oxygen when you leave today. Confirm home oxygen is setup Please go over prescriptions carefully with discharging nurse. Please remember to keep wound vac machine plug in to power when not walking or traveling. Discharge Attestations Time Spent in Discharge Care*: greater than 30 min Specific Discharge Activities: Specific discharge activities: educating patient, educating and/or supporting family/caregiver, discussing with returned case inspector/social workers/dc planners, documenting/other paperwork and evaluating patient/reviewing data Status at Discharge: Cognitive status at discharge: cognitively intact, Behavioral status at discharge: cooperative, Quality Metrics Clinical Quality Measures During this hospital stay, did patient experience: None Coding Level of Care Code Acute Aircraft Sales Representative for Chg Fwd Diagnoses Sternal wound dehiscence T81.32XA Encounter type: initial encounter
[2019-12-17 07:22] LABS: Glucose Point of Care 95 mg/dL (70-110)
[2019-12-17] MEDS: aspirin 81 mg EC Tablet PO (08:12)
[2019-12-17] MEDS: multivitamin therapeutic Tablet 1 TAB PO (08:14)
[2019-12-17] MEDS: metoprolol tartrate 50 mg Tablet PO (08:14)
[2019-12-17] MEDS: pantoprazole DR 40 mg Tablet PO (08:16)
[2019-12-17] MEDS: iron polysaccharide complex 150 mg Capsule PO (08:16)
[2019-12-17] MEDS: levothyroxine 100 mcg Tablet PO (08:16)
[2019-12-17] MEDS: clopidogrel 75 mg Tablet PO (08:16)
--- NOTE | 2019-12-17 09:46 | DCPLANNER ---
Pg 2 of IM explained to and signed by pt. No questions, copy provided. She does comment that she is still awfully weak.
[2019-12-17 11:06] LABS: Glucose Point of Care 117 mg/dL (70-110)
--- NOTE | 2019-12-17 11:16 | PM.PN ---
Subjective Subjective: Interval history: Eliana reports she is doing okay. Some sternal pain. Still coughing. Reports breathing treatments do help. Medications: Reviewed: Yes Vitals/I&O/Wt Last Vital Signs Temp 98.7 F 12/17/19 10:00 Pulse 77 12/17/19 10:00 Resp 18 12/17/19 10:00 BP 131/77 12/17/19 10:00 Pulse Ox 94 12/17/19 10:00 12/16/19 12/17/19 12/17/19 22:59 06:59 14:59 Intake Total 290 / 700 50 / 750 120 / 120 Output Total 500 / 500 Balance 290 / 700 -450 / 250 120 / 120 Physical Exam Narrative: EXAM NARRATIVE: General exam no apparent distress Cardiovascular regular rate and rhythm without murmur, wound VAC in place Lungs coarse bibasilar Abdomen is soft, positive bowel sounds Extremities trace edema Data : 12/17/19 05:15 12/17/19 05:15 Micro: Microbiology 12/14/19 19:45 Anaerobic Culture - Preliminary Chest Wound Culture - Preliminary 12/14/19 19:45 Anaerobic Culture - Preliminary Chest Wound Culture - Preliminary 12/14/19 15:20 Wound Culture - Preliminary Chest A&P Assessment and plan (1) Sternal wound dehiscence: Postoperative day #3. Wound VAC in place. Continue wound VAC On vancomycin and Zosyn. Cultures negative to date. Surgery plans discharge home today on Levaquin. Status: Acute Qualifiers: Encounter type: initial encounter Qualified Code(s): T81.32XA - Disruption of internal operation (surgical) wound, not elsewhere classified, initial encounter Code(s): T81.32XA - Disruption of internal operation (surgical) wound, not elsewhere classified, initial encounter (2) Acute kidney injury superimposed on CKD: Renal function vastly improved from admission. Appears to be back to baseline. Status: Resolved Code(s): N17.9 - Acute kidney failure, unspecified; N18.9 - Chronic kidney disease, unspecified Additional A&P Information Dyspnea. Some wheezing. She reports she has wheezed in the past with any respiratory illness. She has a past history of smoking. She likely has COPD. She will discharge home with a nebulizer, albuterol and Atrovent coronary artery disease status post coronary artery bypass grafting November 2014, 2 vessels. On aspirin, Plavix, statin, beta-radha Type 2 diabetes, sliding scale insulin History of TIA, on aspirin, statin History of postoperative atrial fibrillation. Resolved. On amiodarone 200 mg daily Hypertension, controlled Hypothyroidism Hyperlipidemia DVT prophylaxis with Lovenox Okay with transfer to telemetry Attestations Medical Necessity Statement*: Not applicable, discharging today. Coding Level of Care Code Acute Multimedia Educational Specialist for Hillary Lambert Diagnoses Sternal wound dehiscence T81.32XA Encounter type: initial encounter Acute kidney injury superimposed on CKD N17.9; N18.9
[2019-12-17 16:04] LABS: Glucose Point of Care 107 mg/dL (70-110)
== END 2019-12-17 17:00 | disposition home health service (06) | DRG 908 ==
LOC: ER 15:57 → ICU 17:37 → MEDSURG 12-17 04:52
PROVIDERS: Internal Medicine; Admitting Provider Thoracic Surgery (Cardiothoracic Vascular Surgery); Emergency Provider Emergency Medicine; Family Provider Internal Medicine; Visit Provider Thoracic Surgery (Cardiothoracic Vascular Surgery)
PROC: 0JD60ZZ Extraction of Chest Subcutaneous Tissue and Fascia, Open Approach (ICD-10-PCS; principal; 2019-12-14 18:55)
DX: T81.32XA Disruption of internal operation (surgical) wound, not elsewhere classified, initial encounter (principal); N17.9 Acute kidney failure, unspecified; I25.10 Atherosclerotic heart disease of native coronary artery without angina pectoris; Z95.1 Presence of aortocoronary bypass graft; I25.2 Old myocardial infarction; E78.5 Hyperlipidemia, unspecified; Y83.2 Surgical operation with anastomosis, bypass or graft as the cause of abnormal reaction of the patient, or of later complication, without mention of misadventure at the time of the procedure; E11.22 Type 2 diabetes mellitus with diabetic chronic kidney disease; Z86.73 Personal history of transient ischemic attack (TIA), and cerebral infarction without residual deficits; E03.9 Hypothyroidism, unspecified; I48.91 Unspecified atrial fibrillation; I12.9 Hypertensive chronic kidney disease with stage 1 through stage 4 chronic kidney disease, or unspecified chronic kidney disease; D64.9 Anemia, unspecified; H54.7 Unspecified visual loss; N18.2 Chronic kidney disease, stage 2 (mild); Z79.02 Long term (current) use of antithrombotics/antiplatelets; Z79.82 Long term (current) use of aspirin; Z79.4 Long term (current) use of insulin; Z79.891 Long term (current) use of opiate analgesic; Z79.899 Other long term (current) drug therapy
CPT/HCPCS: 12345; 36415; 36416; 71045; 71260; 80048; 80053; 82962; 83605; 85025; 85610; 85730; 87040; 87070; 87075; 94640; 96365; 96372; 96375; 99283; J0330; J1650; J1815; J1940; J2270; J2405; J2543; J2704; J3010; J3370; J3490; J7030; J7050; J7611; Q9967

== ENCOUNTER → 2019-12-24 16:20 | Outpatient (BNVA) | payer MEDICARE, SELFPAY | PROVIDERS: Family Provider Internal Medicine; PCP Internal Medicine; Visit Provider Internal Medicine Cardiovascular Disease | DX: I50.33 Acute on chronic diastolic (congestive) heart failure (principal); I31.3 Pericardial effusion (noninflammatory); R06.02 Shortness of breath | CPT/HCPCS: 80048; 83880; 97605 ==

== ENCOUNTER 2020-01-02 13:04 | Outpatient (RCR) | payer MEDICARE, SELFPAY | END 2020-01-03 23:59 | disposition home or self-care (01) | LOC: WOUND 13:04 | PROVIDERS: Family Provider Internal Medicine; Visit Provider Surgery | DX: T81.31XA Disruption of external operation (surgical) wound, not elsewhere classified, initial encounter (principal); Y83.8 Other surgical procedures as the cause of abnormal reaction of the patient, or of later complication, without mention of misadventure at the time of the procedure | CPT/HCPCS: 11042; 11045; 97605; 99213; G0463 ==

== ENCOUNTER 2020-01-15 13:25 | Day surgery (SDC) | payer MEDICARE, SELFPAY ==
[2020-01-15 13:52] VITALS: BMI 27.4
[2020-01-15] MEDS: sodium chloride 0.9% 1,000 ML 30 ML IV (14:09)
--- NOTE | 2020-01-15 14:12 | ANES.PREANE2 ---
Pre-Anesthetic Assessment Pre-Anesthetic Assessment: Height/Weight: Height 1.68 m Weight 77.111 kg Preop Diagnosis: Status post CABG with soft tissue sternal wound dehiscence Proposed Procedure: Operation Date: 01/15/20 16:15 Proposed Procedures p Sternal Wire Removal(Not Applicable) - Juan Stanford MD Familial anesthetic complications: No Was Beta Josseline taken within 24 hours: Yes Last intake: Intake Last Liquid Date 01/15/20 Last Liquid Time 06:50 Last Solid Date 01/14/20 Last Solid Time 17:00 Social: Social History: No alcohol and No tobacco Airway: Cervical ROM: WNL MP: 3 Dentition: Chipped Pulmonary: Pulmonary: None reported CV/HEM: CV/HEM: HTN Comments: CABG in november Plavix (last took sunday) : : Chronic renal Insufficiency Hepatic: Hepatic: None reported GI: GI: None reported Metabolic: Metabolic: Thyroid Musc/skel: Musc/skel: Lower Back Pain Neuropsych: Neuropsych: None reported Anesthetic Plan: ASA status: 3 Anesthesia: General Risk of > 500 ml blood loss (7ml/kg in children): No Meds/Allergies Current Medications: Current Medications Generic Name Dose Route Start Last Admin Trade Name Freq PRN Reason Stop Dose Admin Sodium Chloride 1,000 mls @ 30 ml s/hr 01/15/20 14:00 01/15/20 14:09 Sodium Chloride 0.9% IV 01/16/20 13:59 30 mls/hr .Q24H TOSHIA Administration PFSH Anesthesia PFSH: Social History Smoking and tobacco status: former smoker Data Anesthesia Cardiac Studies: No Data to Display
[2020-01-15 14:15] LABS: Glucose Point of Care 91 mg/dL (70-110)
[2020-01-15 14:40] LABS: Basophils # 0.1 10^3/uL (0.0-0.1); Basophils % 0.9 %; Eosinophils # 0.1 10^3/uL (0.0-0.8); Eosinophils % 1.5 %; Hematocrit 33.4 % (37.0-47.0); Hemoglobin 10.5 g/dL (11.5-15.3); Lymphocytes % 25.5 %; Mean Corpuscular HGB Conc 31.4 g/dL (30.0-36.0); Mean Corpuscular Hemoglobin 29.7 pg (28.0-34.0); Mean Corpuscular Volume 94.4 fL (81-99); Mean Platelet Volume 11.6 fL (7.4-10.4); Monocytes # 0.7 10^3/uL (0.2-0.9); Monocytes % 8.4 %; Neutrophils % 63.3 %; Nucleated Red Blood Cells % 0 %; Platelet Count 329 10^3/cmm (130-400); Red Blood Count 3.54 10^6/uL (4.1-5.3); Red Cell Distribution Width 15.7 % (12.1-15.1); White Blood Count 7.9 10^3/uL (4.0-10.0)
[2020-01-15 15:22] LABS: Blood Urea Nitrogen 20 mg/dL (8-23); Calcium 9.9 mg/dL (8.5-10.5); Carbon Dioxide 26 mmol/L (22-29); Chloride 96 mmol/L (98-107); Glucose 105 mg/dL (65-115); Osmolality Calculated 281 mOsm/kg (285-295); Sodium 137 mmol/L (136-145)
[2020-01-15] MEDS: vancomycin 1,000 MG in sodium chloride 0.9% 250 ML 250 MG IV (15:48)
[2020-01-15 15:57] LABS: INR 0.98 (0.8-1.2)
--- NOTE | 2020-01-15 15:57 | W.PM.OPSUD ---
Surgery/Procedure H&P Update DATE OF PROCEDURE: January 15, 2020 DATE H&P PERFORMED: 01/13/20 H&P UPDATE INFORMATION: I have reviewed H&P completed within last 30 days, I have examined patient prior to procedure and No changes to prior documentation PREOP DIAGNOSIS: Status post CABG with soft tissue sternal wound dehiscence PRIMARY INDICATION FOR PROCEDURE: Delayed healing sternotomy wound with exposed sternal wire PLANNED PROCEDURE: Operation Date: 01/15/20 16:15 Proposed Procedures p Sternal Wire Removal(Not Applicable) - Juan Stanford MD
[2020-01-15] MEDS: vancomycin 1,000 MG SDV 1000 MG IRRIGATION (18:08)
[2020-01-15 18:17] VITALS: BP 125/47; PULSE 75; RESP 16; TEMP 36.8; O2SAT 94
--- NOTE | 2020-01-15 18:22 | P.OP_ITS ---
Operative Report Date of procedure: January 15, 2020 Pre-op Diagnosis: Status post CABG with soft tissue sternal wound dehiscence Procedure Done: Sternal wound exploration, removal of sternal wires x2, surgical debridement and irrigation. Specimens removed/disposition: Sternal wires x2 Pathology: none sent Surgeon: Juan Stanford Anesthesia: MAC Condition: stable Disposition: same day Brief History: 69-year-old female status post CABG November 19, 2019. She developed soft tissue wound dehiscence requiring sternal debridement and subsequent care through our wound care services clinic. She has been utilizing a wound VAC. Last inspection this prior Sunday revealed an exposed sternal wire. I recommended removal and exploration as needed. Consents have been reviewed and signed. Procedure: Ms. Samuels was taken to the operating room theater and carefully positioned. Appropriate IVs were confirmed. Timeout was completed. She received IV conscious sedation with anesthesia monitoring. Her wound VAC dressing was removed. There is approximately 25% granulation tissue noted along the periphery. There is an exposed sternal wire in the base of the wound. Wound was sterilely prepped and draped with Betadine. The exposed sternal wire inferiorly was removed. Upon further inspection there was another wire slightly more inferior which was also partially exposed. I elected to untwist, cut, and removed this wire as well. Both these wires were intact and tight at the time of inspection. Sternum remained stable for removal of these 2 wires. I do not see any further exposed wires more superiorly. Sharp debridement with Metzenbaum scissors was performed to remove devitalized tissue with there was also noted to be some desiccation along the wound edges particularly more superiorly and laterally. Afraid this may be the result of the wound VAC. Therefore, after careful irrigation with antibiotic laden saline, confirmation of hemostasis, I elected to place a wet-to-dry dressing at this time. We will schedule follow-up in wound care services tomorrow to determine whether we should continue wet-to-dry dressings over the weekend, if we have appropriate home health services, or whether we should resume wound VAC dressing changes. Wound dimensions at the completion of debridement were 9.5 cm in length by 4.5 cm in width by 3 cm in depth. She tolerated procedure well, was awakened from IV conscious sedation, return to outpatient surgery department. I did counseling case manager with her family completion of the procedure. She will be seen tomorrow in wound care services. I will see her on my routine wound care clinic day, next Sunday.
[2020-01-15 18:32] VITALS: BP 122/50; PULSE 81; RESP 16; TEMP 36.6; O2SAT 93
[2020-01-15] MEDS: HYDROcodone-acetaminophen 5-325 mg Tablet 2 TAB PO (18:40)
== END 2020-01-15 19:00 | disposition home or self-care (01) ==
PROVIDERS: Family Provider Internal Medicine; PCP Internal Medicine; Visit Provider Thoracic Surgery (Cardiothoracic Vascular Surgery)
PROC: (CPT 11042; principal; 2020-01-15 16:15)
DX: T81.30XA Disruption of wound, unspecified, initial encounter (principal); S21.109A Unspecified open wound of unspecified front wall of thorax without penetration into thoracic cavity, initial encounter; X58.XXXA Exposure to other specified factors, initial encounter; I10 Essential (primary) hypertension; Z95.1 Presence of aortocoronary bypass graft; Z87.891 Personal history of nicotine dependence
CPT/HCPCS: 11042; 11045 ×2; 20680; 12345; 36415; 36416; 80048; 82962; 85025; 85610; 86850; 86900; 86920; 96365; 97605; J2001; J2704; J3010; J3370; J7030

== ENCOUNTER 2020-02-03 14:11 | Outpatient (RCR) | payer MEDICARE, SELFPAY ==
--- NOTE | 2020-01-12 | USCV_ITS ---
Eliana Samuels Age: 69 Gender: F : 1950 Exam Date: 01/12/2020 15:07 Ordering Phys: Hoa Gill MD Technologist: Sanaz Hansen Exam Location: [facility] [place] Indication: chf BP: / HR: 72 Rhythm: Sinus Technical Quality: Adequate MEASUREMENTS (Male / Female) Normal Values 2D ECHO LV Diastolic Diameter PLAX 3.4 cm 4.2 - 5.9 / 3.9 - 5.3 cm LV Systolic Diameter PLAX 2.3 cm IVS Diastolic Thickness 1.3 cm 0.6 - 1.0 / 0.6 - 0.9 cm IVS Systolic Thickness 1.5 cm LVPW Diastolic Thickness 1.8 cm 0.6 - 1.0 / 0.6 - 0.9 cm LVPW Systolic Thickness 2.3 cm LVOT Diameter 2.0 cm LV Ejection Fraction 2D Teich 59.6 % LV Ejection Fraction MOD 2C 74.5 % LV Ejection Fraction 2C AL 74.5 % LA Diameter 4.5 cm LA Width 3.1 cm LA Height 4.4 cm RA Width 2.6 cm RA Height 3.5 cm Aorta at Sinotubular Diameter 2.4 cm M-MODE LV Diastolic Diameter MM 4.7 cm 4.2 - 5.9 / 3.9 - 5.3 cm LV Systolic Diameter MM 3.1 cm LV Ejection Fraction MM Teich 63.3 % IVS Diastolic Thickness MM 0.9 cm 0.6 - 1.0 / 0.6 - 0.9 cm IVS Systolic Thickness MM 1.3 cm LVPW Diastolic Thickness MM 0.8 cm 0.6 - 1.0 / 0.6 - 0.9 cm LVPW Systolic Thickness MM 1.3 cm Aortic Annulus Diameter 3.3 cm LA Ao Ratio MM 1.4 MV E Point Septal Separation 1.2 cm FINDINGS Left Ventricle Normal left ventricular size and systolic function, EF 63 %. Relative hypokinesis of the anteroseptal segment was noted Right Ventricle Normal right ventricular size and systolic function. Right Atrium Possibly of normal size Left Atrium The left atrium is normal in size. Mitral Valve Mild mitral annular calcification. Aortic Valve No gross abnormalities noted Tricuspid Valve No gross abnormalities noted Pulmonic Valve Pulmonic valve not well visualized. Pericardium Normal pericardium without effusion. Aorta Normal ascending aorta dimension. Minimal plaques in the ascending aorta CONCLUSIONS Normal left ventricular size and systolic function, EF 63 %. Wall motion normality as mentioned above Mild mitral annular calcification. No regional wall motion abnormalities. Technically difficult study because of the poor ultrasonic window. Dr Hoa Gill MD FACC (Electronically Signed) Final Date: 14 January 2020 08:52 C MTDD
== END 2020-02-03 23:59 | disposition home or self-care (01) ==
LOC: WOUND 14:11
PROVIDERS: Family Provider Internal Medicine; PCP Internal Medicine; Visit Provider Thoracic Surgery (Cardiothoracic Vascular Surgery)
DX: T81.31XA Disruption of external operation (surgical) wound, not elsewhere classified, initial encounter (principal); Y83.8 Other surgical procedures as the cause of abnormal reaction of the patient, or of later complication, without mention of misadventure at the time of the procedure; Z95.1 Presence of aortocoronary bypass graft; I50.9 Heart failure, unspecified; I34.0 Nonrheumatic mitral (valve) insufficiency
CPT/HCPCS: 11042; 11045; 93308; 97597; 97605; 97606; G0463

== ENCOUNTER 2020-02-25 08:04 | Outpatient (CLI) | payer MEDICARE, SELFPAY ==
[2020-02-25 09:15] LABS: Anion Gap 19.5 (5-19); Blood Urea Nitrogen 16 mg/dL (8-23); Calcium 9.6 mg/dL (8.5-10.5); Carbon Dioxide 25 mmol/L (22-29); Chloride 98 mmol/L (98-107); Glucose 136 mg/dL (65-115); NT Pro B Type Natriuretic Pept 5059 pg/mL (0-125); Osmolality Calculated 286 mOsm/kg (285-295); Potassium 3.5 mmol/L (3.5-5.1); Sodium 139 mmol/L (136-145); Thyroid Stimulating Hormone 1.09 uIU/mL (0.27-4.20)
== END 2020-02-25 08:05 | disposition home or self-care (01) ==
LOC: LAB 08:08
PROVIDERS: Student in an Organized Health Care Education/Training Program; Family Provider Internal Medicine; PCP Internal Medicine; Visit Provider Thoracic Surgery (Cardiothoracic Vascular Surgery)
DX: I50.33 Acute on chronic diastolic (congestive) heart failure (principal)
CPT/HCPCS: 36415; 80048; 83880; 84443

== ENCOUNTER 2020-02-25 12:24 | Outpatient (CLI) | payer MEDICARE, SELFPAY ==
--- NOTE | 2020-02-25 13:16 | XR_ITS ---
WS: [id number] PROCEDURE: XR chest 2V* [id number] CLINICAL INFORMATION: shortness of breath, pleural effusion COMPARISON: December 14, 2019 FINDINGS: Heart: Cardiomegaly. Aortic calcification. Sternotomy with CABG. Lungs: Moderate chronic emphysematous changes. Small left greater than right pleural effusions. Bibas ilar atelectasis. Bones: Thoracic scoliosis convex right with moderate to advanced thoracic scoliosis. Anterior wedging in the mid thoracic spine. Aortic calcification. XR/XR chest 2V* [id number] IMPRESSION: 1. Cardiomegaly with small left greater than right pleural effusions 2. Chronic elevation left hemidiaphragm with compressive atelectasis left lung base with air bronchograms. Recommend correlation for left lower lobe pneumoni a 3. S-shaped thoracolumbar scoliosis with thoracic kyphosis. Chronic appearing compression fractures in the mid thoracic spine.
--- NOTE | 2020-02-25 13:16 | USCV_ITS ---
Eliana Samuels Age: 69 Gender: F : 1950 Exam Date: 02/25/2020 13:38 Ordering Phys: Hoa Gill MD ([email or web address]) Technologist: Bela Bhatti Exam Location: [facility] Indication: SWOLLEN LEGS HISTORY: Bilateral swollen legs PROCEDURES: The venous duplex Doppler examination of both lower extremities was performed in the standard fashion. The following venous structures were evaluated: common femoral vein, profunda vein, proximal portion of the greater saphenous vein, superficial femoral vein, and the popliteal vein. In addition, the posterior tibial and peroneal trunk were evaluated. Echolucent area in the right popliteal fossa Serial compression, augmentation maneuvers, and spectral Doppler flow evaluation were performed. FINDINGS: No DVT seen in any vessel examined GSV bilaterally not examined due to CABG and edema Rt pop fossa Sylvester's cyst seen.Echolucent area in the right popliteal fossa, suggestive of a Sylvester's cyst, measuring 4.9 x 1.8 cm Conclusion area was noted in the right popliteal region CONCLUSIONS No evidence of DVT in the above-mentioned identifiable veins. Possible Sylvester's cyst, measuring 4.9 x 1.8 cm, in the right popliteal region Dr Hoa Gill MD FAC (Electronically Signed) Final Date: 25 February 2020 17:13 S
== END 2020-02-25 12:25 | disposition home or self-care (01) ==
PROVIDERS: Family Provider Internal Medicine; PCP Internal Medicine; Visit Provider Internal Medicine Cardiovascular Disease
DX: R06.02 Shortness of breath (principal); J90 Pleural effusion, not elsewhere classified; I51.7 Cardiomegaly; M40.204 Unspecified kyphosis, thoracic region; M41.85 Other forms of scoliosis, thoracolumbar region; M48.54XA Collapsed vertebra, not elsewhere classified, thoracic region, initial encounter for fracture; X58.XXXA Exposure to other specified factors, initial encounter; M79.89 Other specified soft tissue disorders
CPT/HCPCS: 71046; 93970

== ENCOUNTER 2020-03-02 13:52 | Outpatient (RCR) | payer MEDICARE, SELFPAY | END 2020-03-04 23:59 | disposition home or self-care (01) | LOC: WOUND 13:52 | PROVIDERS: Family Provider Internal Medicine; PCP Internal Medicine; Visit Provider Thoracic Surgery (Cardiothoracic Vascular Surgery) | DX: T81.31XA Disruption of external operation (surgical) wound, not elsewhere classified, initial encounter (principal); Y83.8 Other surgical procedures as the cause of abnormal reaction of the patient, or of later complication, without mention of misadventure at the time of the procedure | CPT/HCPCS: 11042; 97605; A6530 ==

== ENCOUNTER 2020-03-04 09:41 | Outpatient (CLI) | payer MEDICARE, SELFPAY ==
[2020-03-04 10:26] LABS: Anion Gap 16.7 (5-19); Blood Urea Nitrogen 26 mg/dL (8-23); Calcium 9.1 mg/dL (8.5-10.5); Carbon Dioxide 27 mmol/L (22-29); Chloride 100 mmol/L (98-107); Glucose 98 mg/dL (65-115); NT Pro B Type Natriuretic Pept 6613 pg/mL (0-125); Osmolality Calculated 285 mOsm/kg (285-295); Potassium 4.7 mmol/L (3.5-5.1); Sodium 139 mmol/L (136-145)
== END 2020-03-04 09:42 | disposition home or self-care (01) ==
PROVIDERS: Family Provider Internal Medicine; PCP Internal Medicine; Visit Provider Internal Medicine Cardiovascular Disease
DX: I11.0 Hypertensive heart disease with heart failure (principal); I50.33 Acute on chronic diastolic (congestive) heart failure; M79.89 Other specified soft tissue disorders; R06.02 Shortness of breath
CPT/HCPCS: 36415; 80048; 83880

== ENCOUNTER 2020-03-05 15:55 | Outpatient (CLI) | payer MEDICARE, SELFPAY | END 2020-03-05 15:56 | disposition home or self-care (01) | LOC: WOUND 03-08 13:44 | PROVIDERS: Family Provider Internal Medicine; PCP Internal Medicine; Visit Provider Surgery | DX: Y83.8 Other surgical procedures as the cause of abnormal reaction of the patient, or of later complication, without mention of misadventure at the time of the procedure; T81.31XD Disruption of external operation (surgical) wound, not elsewhere classified, subsequent encounter; L98.492 Non-pressure chronic ulcer of skin of other sites with fat layer exposed | CPT/HCPCS: 97605 ==

== ENCOUNTER 2020-03-09 13:19 | Outpatient (CLI) | payer MEDICARE, SELFPAY | END 2020-03-09 13:20 | disposition home or self-care (01) | LOC: WOUND 13:20 | PROVIDERS: Family Provider Internal Medicine; PCP Internal Medicine; Visit Provider Thoracic Surgery (Cardiothoracic Vascular Surgery) | DX: Y83.8 Other surgical procedures as the cause of abnormal reaction of the patient, or of later complication, without mention of misadventure at the time of the procedure; T81.31XA Disruption of external operation (surgical) wound, not elsewhere classified, initial encounter | CPT/HCPCS: 11042 ==

== ENCOUNTER 2020-03-12 07:43 | Outpatient (CLI) | payer MEDICARE, SELFPAY | END 2020-03-12 07:44 | disposition home or self-care (01) | LOC: WOUND 07:46 | PROVIDERS: Family Provider Internal Medicine; PCP Internal Medicine; Visit Provider Surgery | DX: T81.31XD Disruption of external operation (surgical) wound, not elsewhere classified, subsequent encounter (principal); Y83.8 Other surgical procedures as the cause of abnormal reaction of the patient, or of later complication, without mention of misadventure at the time of the procedure; L98.492 Non-pressure chronic ulcer of skin of other sites with fat layer exposed | CPT/HCPCS: 97605 ==

== ENCOUNTER 2020-03-16 13:12 | Outpatient (CLI) | payer MEDICARE, SELFPAY | END 2020-03-23 15:01 | disposition home or self-care (01) | LOC: RAD 03-23 14:44 → WOUND 03-23 14:52 → RAD 03-24 09:31 → WOUND 03-24 09:31 | PROVIDERS: Family Provider Internal Medicine; PCP Internal Medicine; Visit Provider Thoracic Surgery (Cardiothoracic Vascular Surgery) | DX: T81.31XA Disruption of external operation (surgical) wound, not elsewhere classified, initial encounter (principal); Y83.8 Other surgical procedures as the cause of abnormal reaction of the patient, or of later complication, without mention of misadventure at the time of the procedure | CPT/HCPCS: 11042; 97605 ==

== ENCOUNTER 2020-03-19 15:08 | Outpatient (CLI) | payer MEDICARE, SELFPAY | END 2020-03-19 15:09 | disposition home or self-care (01) | LOC: WOUND 15:09 | PROVIDERS: Family Provider Internal Medicine; PCP Internal Medicine; Visit Provider Surgery | DX: T81.31XA Disruption of external operation (surgical) wound, not elsewhere classified, initial encounter (principal); Y83.8 Other surgical procedures as the cause of abnormal reaction of the patient, or of later complication, without mention of misadventure at the time of the procedure | CPT/HCPCS: G0463 ==

== ENCOUNTER 2020-03-19 16:00 | Emergency (ER) | payer MEDICARE, SELFPAY ==
[2020-03-19 16:13] VITALS: BP 147/79; PULSE 57; RESP 20; TEMP 36.6; O2SAT 95; BMI 28.2
[2020-03-19 18:33] VITALS: BP 98/82; PULSE 62; RESP 16; O2SAT 98
--- NOTE | 2020-03-19 18:38 | ED_ITS ---
HPI - Wound/Laceration General: Chief Complaint: Wound/Laceration Stated Complaint: sent over from wound care Time Seen by Provider: 03/19/20 18:30 History of Present Illness: HPI narrative: Patient is a 69-year-old female who comes to the ED with right lower extremity swelling and pain and evaluation of open heart surgical site evaluation. Patient had open heart surgery back in November and her surgical site has been healing normally. Patient says she was having more intense chest muscle pain today. She then took 2 Tylenol at home and the pain is greatly improved. Patient says that the surgeon told her that this is normal pain during the healing process. She describes the pain is muscular and soreness. Patient has increased pain when flexion of right and left arm in front of patient. Patient denies any shortness of breath, palpitations or heart pain. Patient states she has had increased right lower extremity swelling and edema over the past 2 weeks. Patient does currently take Lasix but states that her recent dose of Lasix does not seem to be helping reduce the swelling. Patient says she is has some fluid leaking out of her legs as well. Patient's doctor just sent a prescription for new diuretic pill for patient to try to take to remove the excess fluid on legs. Patient says new medication is at pharmacy currently. The pain in her right lower extremity is near the calf region. Patient denies any cough, chest pain or shortness of breath. Associated symptoms: Denies chills, fever(s), nausea or vomiting Review of Systems Const: Denies: fever(s), chills or fatigue Eyes: Denies: change in vision or eye discomfort ENMT: Denies: throat pain, odynophagia, nasal discharge or nasal congestion Card: Reports: chest pain (Chest muscle pain bilaterally?pectoralis muscles.); Denies: palpitations, edema, swelling of feet/ankles, dyspnea on exertion or orthopnea Resp: Denies: dyspnea, productive cough or non-productive cough GI: Denies: abdominal pain, nausea, vomiting, diarrhea, constipation or hematochezia : Denies: flank pain, dysuria or hematuria Musc: Reports: extremity pain (right lower ext.) and extremity swelling (right lower ext.); Denies: neck pain or back pain Skin/Breast: Denies: rash or new lesions Neuro: Denies: headache(s), numbness in extremities or weakness in extremities PFSH ED PFSH: Medical History Acute on chronic diastolic (congestive) heart failure Anemia Benign essential hematuria Benign essential hypertension with target blood pressure below 140/90 CAD (coronary artery disease) Chronic kidney disease 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 Dyslipidemia Leg swelling NSTEMI (non-ST elevated myocardial infarction) Postoperative atrial fibrillation SOB (shortness of breath) Sternal wound dehiscence Tubal ligation evaluation Surgical History H/O hysterectomy for benign disease Status post aorto-coronary artery bypass graft Family History Brother CAD (coronary artery disease), Onset Age: 59 of myocardial infarction at age 59 Father CAD (coronary artery disease), Onset Age: 55 Had open heart surgery x3 Grandfather CAD (coronary artery disease), Onset Age: 55 Also of myocardial infarction in the late 50s Social History Smoking and tobacco status: former smoker Physical Exam Const: COMMON NORMALS: no acute distress, patient oriented x3 and alert GENERAL APPEARANCE: cooperative and comfortable; not in distress HENMT: COMMON NORMALS: normocephalic HEAD & SCALP: normocephalic MOUTH: Normal oral and palatal mucosa present THROAT: posterior oropharynx normal and uvula midline Neck/C-Spine: COMMON NORMALS: supple GENERAL: Yes normal visual inspection Chest: CHEST: Yes tenderness pectoral muscle bilaterally Resp: COMMON NORMALS: normal respiratory effort, No retractions, No use of accessory muscles and clear to auscultation bilaterally AUSCULTATION: clear to auscultation bilaterally Cardio: COMMON NORMALS: regular rate, regular rhythm, S1 normal heart sound present, S2 normal heart sound present, No gallops present (Cardio), No clicks present (Cardio) and No murmurs present (Cardio) RATE: regular rate RHYTHM: regular rhythm HEART SOUNDS: S1 normal heart sound present and S2 normal heart sound present PERIPHERAL PULSES: radial pulses present positive bilateral 2+ GI: COMMON NORMALS: Normal to inspection, nondistended, normoactive bowel sounds present, Soft to palpation, non-tender and no masses PALPATION: Yes Soft to palpation : COMMON NORMALS: Yes no CVA tenderness BLADDER/KIDNEY EXAM: Yes no CVA tenderness Back/Pelvis: COMMON NORMALS: no CVA tenderness Extremity: GENERAL: Yes edema (Right lower extremity 2+ pitting edema. Patient had some tenderness upon palpation around the calf. 1+ pedal pulse in right lower extremity.) Neuro: COMMON NORMALS: patient oriented x3 and moves all extremities SENSOR IUM/ORIENTATION: Yes alert Skin: WOUNDS: Yes surgical site (Surgical site appears to be healing well. No foul odor, erythema, warmth or drainage.) Details: size (7cm) Course Reevaluation(s): Reevaluation #1: After I got the lower extremity ultrasound report I told patient about findings of no DVT or blood clot. Patient says she was not having any more chest muscle pain and denies any shortness of breath or cough. She is currently not on any oxygen in the room and at 95% O2 saturation on room air. Patient is ready for discharge. Time: 21:32 Vital Signs: Vital signs: Vital Signs Temperature 97.8 F 03/19/20 16:13 Pulse Rate 60 03/19/20 20:40 Respiratory Rate 18 03/19/20 20:40 Blood Pressure 144/73 03/19/20 20:40 Pulse Oximetry 95 03/19/20 20:40 MDM - Wound/Laceration MDM Narrative: Medical decision making narrative: Patient is a 69-year-old female who comes to the ED to get with chest muscle pain and right lower extremity swelling and pain. Patient had open heart surgery in November 2019. Since surgery patient says she has chest muscle pain which her surgeon explained to her was normal. Patient took Tylenol before arriving to ED and chest muscle pain greatly improved. Denies any shortness of breath, heart palpitations or other chest pain. Vitals: Blood pressure 144/73, pulse 60, respirations 18, temp 97.8 Fahrenheit, O2 saturation 95% on room air. Physical exam showed: 69-year-old in no acute pain or distress. Surgical site was healing well and showing no signs of infection. Mild soreness upon palpation bilaterally of the pectoralis muscle. 2+ pitting edema in the right lower extremity. Chest x-ray was performed and showed no acute findings. Ultrasound venous duplex of right lower extremity showed no DVTs or clots. Patient also explained that she has been having right lower extremity swelling for over 2 weeks. PCP has been making adjustments to her diuretic medication to try to get excess fluid off her legs. PCP currently has a new prescription for a diuretic for patient at pharmacy to try to help with lower leg swelling. Patient was discharged with chest muscle pain and leg edema. I told patient to rest, elevate and to wear compression stockings to help with swelling. I also told patient to continue taking all her previously prescribed meds and to cigar packer and picker her new diuretic medication to help treat her leg edema. Told patient if she is having any worsening symptoms she can return to ED for reevaluation. Follow-up with PCP in 7 days for reevaluation. Patient understood and agreed with plan. Imaging Data^: CXR: Attestation: I personally reviewed and interpreted this imaging study as follows: My impression: No acute findings. Enlarged heart seen. Pending final radiology report. US Vascular: Attestation: I personally reviewed and interpreted this imaging study as follows: Radiologist's impression: Ultrasound venous duplex of right lower extremity- prelim report- no blood clots or DVTs. Discharge Plan Discharge Patient Disposition: Home, Self-Care Clinical Impression: Leg edema, right, Chest pain, muscular Condition: Stable Prescriptions: No Action potassium chloride 20 mEq tablet extended release 20 meq PO BID Qty: 60 RF: 3 lisinopril 10 mg tablet 10 mg PO DAILY Qty: 30 RF: 3 torsemide 20 mg tablet 40 mg PO BID Qty: 180 RF: 0 bumetanide 0.5 mg tablet 0.5 mg PO DAILY Qty: 30 RF: 2 atorvastatin 40 mg Tablet 20 mg PO BEDTIME Qty: 30 RF: 0 hydrocodone-acetaminophen 5-325 mg Tablet 1 - 2 tab PO Q4H PRN (Reason: Moderate To Severe Pain) Qty: 10 RF: 0 polysaccharide iron complex [Ferrex 150] 150 mg iron Capsule 150 mg PO BIDWM Qty: 60 RF: 0 hydralazine 25 mg Tablet 25 mg PO Q8H Qty: 90 RF: 0 clopidogrel 75 mg Tablet 75 mg PO DAILY Qty: 30 RF: 0 aspirin 81 mg Tablet,Delayed Release (Dr/Ec) 81 mg PO DAILY Qty: 30 RF: 0 levothyroxine [Levoxyl] 100 mcg Tablet 100 mcg PO DAILY Qty: 30 RF: 0 meclizine 25 mg Tablet 25 mg PO TID PRN (Reason: Dizziness) Qty: 10 RF: 0 insulin aspart U-100 [Novolog U-100 Insulin aspart] 100 unit/mL Solution 0 unit SUBCUT WM&BEDTIME Qty: 100 RF: 0 pantoprazole 40 mg Tablet,Delayed Release (Dr/Ec) 40 mg PO DAILY Qty: 30 RF: 0 metoprolol tartrate 50 mg Tablet 50 mg PO BID Qty: 60 RF: 0 docusate sodium 100 mg Capsule 100 mg PO DAILY PRN (Reason: Constipation) Qty: 10 RF: 0 bisacodyl 5 mg Tablet,Delayed Release (Dr/Ec) 10 mg PO DAILY PRN (Reason: Constipation) Qty: 10 RF: 0 Thera 400 mcg Tablet 1 tab PO DAILY Qty: 30 RF: 0 liothyronine 5 mcg Tablet 5 mcg PO DAILY Qty: 30 RF: 0 amlodipine [Norvasc] 10 mg Tablet 10 mg PO DAILY Qty: 30 RF: 0 Discharge Orders: Discharge Order (Routine); Ordered 03/19/20 Ordered By: Thierry Abdalla Referrals: Melina Weeks MD [Primary Care Provider] - Discharge Diet: Regular Discharge Activity: Resume usual activity and Increase activity as tolerated Patient Instructions: Leg Edema (ED) Activity Restrictions/Additional Instructions: Follow-up with your PCP in the next 7 to 10 days for reevaluation. Continue taking all home medications. program director group work your new diuretic medication that your doc tor sent to the pharmacy to help with leg swelling. Take Tylenol for any chest muscle pain. Return to the ED if you have any shortness of breath or worsening symptoms. Discharge Date/Time: 03/19/20 21:49 Coding Level of Care Code ED Diesel Tractor Operator for Jovanig Fwd Exam Comprehensive
--- NOTE | 2020-03-19 19:23 | USCV_ITS ---
Eliana Samuels Age: 69 Gender: F : 1950 Exam Date: 03/19/2020 20:13 Ordering Phys: Thierry Abdalla Technologist: Sergei Stout [place] [facility] [place]: RT LEG PAIN AND SWELLING HISTORY: Lower extremity edema. PROCEDURES: Venous duplex imaging was performed in only the right lower extremity. The following venous structures were evaluated: common femoral vein, profunda vein, proximal portion of the greater saphenous vein, superficial femoral vein, and the popliteal vein. In addition, the posterior tibial and peroneal trunk were evaluated. On the right side, the common femoral, superficial femoral, profunda femoral, popliteal, posterior tibial, greater saphenous veins and the peroneal trunk were identified and interrogated in the standard fashion. These veins were found to be easily compressible with spontaneous blood flow. No evidence of insufficiency or thrombus noted. FINDINGS: Normal 2-D Doppler and augmentation and compressibility throughout the lower extremity venous structures. Additional imaging through the proximal calf veins also reveals no thrombus. Limited evaluation of the greater saphenous vein is patent with no thrombus.. CONCLUSIONS No evidence of DVT in the above-mentioned identifiable veins. Dr Hoa Gill MD [facility] (Electronically Signed) Final Date: 22 Mar 2020 19:31 S
--- NOTE | 2020-03-19 19:23 | XRR_ITS ---
PROCEDURE INFORMATION: Exam: XR Chest, 1 View Exam date and time: 03/19/2020 7:50 PM Age: 69 years old Clinical indication: Shortness of breath; Chest pain; Type not specified; Prior surgery; Surgery type: Cabg, date of surgery not provided; Additional info: Recent open heart surgery, check healing TECHNIQUE: Imaging protocol: XR of the chest Views: 1 view. COMPARISON: CR XR chest 2V* [id number] 02/25/2020 1:22 PM FINDINGS: Lungs: See Pleural space finding. Pleural space: Stable increased densities are seen in the left lung base obscuring the left hemidiaphragm possibly secondary to a left pleural effusion. Additionally, there are some strandy opacities seen in the left lung base likely represents atelectasis. A left basilar infiltrate and pneumonia cannot be entirely excluded. These findings appear stable compared with 02/25/2020. Heart/Mediastinum: Unremarkable. No cardiomegaly. Diaphragm: There is fixed elevation of the left hemidiaphragm. Bones/joints: There is an S-shaped curvature of the axial skeleton. XR/XR chest 1V portable [id number] IMPRESSION: Stable elevation of the left hemidiaphragm with likely superimposing pleural fluid and left basilar atelectasis. These findings appear stable compared with 02/25/2020.
[2020-03-19 20:40] VITALS: BP 144/73; PULSE 60; RESP 18; O2SAT 95
== END 2020-03-19 21:49 | disposition home or self-care (01) ==
PROVIDERS: Emergency Provider Physician Assistant; Family Provider Internal Medicine; PCP Internal Medicine
DX: R07.89 Other chest pain (principal); R60.0 Localized edema; Z79.02 Long term (current) use of antithrombotics/antiplatelets; Z79.82 Long term (current) use of aspirin; Z79.4 Long term (current) use of insulin; I11.0 Hypertensive heart disease with heart failure; I50.33 Acute on chronic diastolic (congestive) heart failure; I25.10 Atherosclerotic heart disease of native coronary artery without angina pectoris; E78.5 Hyperlipidemia, unspecified; I25.2 Old myocardial infarction; Z95.1 Presence of aortocoronary bypass graft; Z87.891 Personal history of nicotine dependence; T81.31XA Disruption of external operation (surgical) wound, not elsewhere classified, initial encounter; Y83.8 Other surgical procedures as the cause of abnormal reaction of the patient, or of later complication, without mention of misadventure at the time of the procedure
CPT/HCPCS: 12345; 71045; 93971; 99281; 99283; G0463

== ENCOUNTER → 2020-03-22 10:17 | Outpatient (BNVA) | payer MEDICARE, SELFPAY | PROVIDERS: Family Provider Internal Medicine; PCP Internal Medicine; Visit Provider Nurse Practitioner Family | DX: R06.02 Shortness of breath (principal); M79.89 Other specified soft tissue disorders; R60.0 Localized edema; I50.33 Acute on chronic diastolic (congestive) heart failure; Z95.1 Presence of aortocoronary bypass graft | CPT/HCPCS: 80048; 83880; 85025 ==

== ENCOUNTER 2020-03-23 13:33 | Outpatient (CLI) | payer MEDICARE, SELFPAY ==
--- NOTE | 2020-03-23 | CT_ITS ---
WS: [id number] CT CHEST, ABDOMEN, AND PELVIS TECHNIQUE: Noncontrast CT of the chest, abdomen, and pelvis with coronal and sagittal reformatted laverne ges. CLINICAL INFORMATION: LOWER EXTREMITY EDEMA COMPARISON: None. DLP: 1688.[address] scans at [facility] use at least one of these dose optimization techniques: automat ed exposure control; mA and/or kV adjustment per patient size (includes targeted exams where dose is matched to clinical indication); or iterative reconstruction. CT CHEST: Mild chronic emphysematous changes. No acute pulmonary infiltrates. No consolidation or pleural fluid . Slight atelectasis in the lung bases. Chronic elevation left hemidiaphragm with colonic interpositi on. Subsegmental atelectasis left lung base. Thoracic scoliosis and kyphosis. Prior sternotomy. Mediastinal clips with CABG. Soft tissue thickening with chronic appearing fluid co llection likely seroma along the sternotomy. No significant surrounding inflammation. This is new fro m CT chest December 14, 2019. Dehiscence along the lower sternotomy incision appears progressed from the prior CT. CT ABDOMEN AND PELVIS: Noncontrast liver is normal. Adrenal glands are normal. Bilateral renal cortical atrophy. Thoracolumb ar scoliosis. Noncontrast spleen appears normal. No evidence of small or large bowel obstruction. No free fluid in the pelvis. Tortuous abdominal aorta with moderate calcified atheromatous disease. S-sh aped lumbar scoliosis. Chronic anterior wedging lower thoracic spine. CT/CT chest abd pel wo con IMPRESSION: 1. Previously known sternal wound dehiscence with fluid collection along the u pper and mid incision today likely represents chronic seroma. This measures edilson roximately 4.4 x 2.2 x 5.4 cm AP by transverse by craniocaudal. No surrounding inflammation. 2. Wound dehiscence along the mid and lower sternotomy appears progressed from previous. 3. Both lungs are well aerated. No acute pulmonary infiltrates. Chronic elevat ion left hemidiaphragm with colonic interposition. 4. No free fluid in the abdomen or pelvis. 5. Densely calcified tortuous but normal caliber abdominal aorta. 6. Atrophic kidneys bilaterally. No hydronephrosis. 7. No acute abdominal or pelvic findings. 8. Thoracolumbar scoliosis with moderate kyphosis.
== END 2020-03-23 13:34 | disposition home or self-care (01) ==
LOC: WOUND 13:34
PROVIDERS: Family Provider Internal Medicine; PCP Internal Medicine; Visit Provider Thoracic Surgery (Cardiothoracic Vascular Surgery)
DX: T81.31XA Disruption of external operation (surgical) wound, not elsewhere classified, initial encounter (principal); Y83.8 Other surgical procedures as the cause of abnormal reaction of the patient, or of later complication, without mention of misadventure at the time of the procedure; R60.9 Edema, unspecified
CPT/HCPCS: 11042; 71250; 74176

== ENCOUNTER 2020-04-06 14:53 | Outpatient (CLI) | payer MEDICARE, SELFPAY | END 2020-04-06 14:54 | disposition home or self-care (01) | LOC: WOUND 14:54 | PROVIDERS: Family Provider Internal Medicine; PCP Internal Medicine; Visit Provider Thoracic Surgery (Cardiothoracic Vascular Surgery) | DX: T81.31XA Disruption of external operation (surgical) wound, not elsewhere classified, initial encounter (principal); Y83.8 Other surgical procedures as the cause of abnormal reaction of the patient, or of later complication, without mention of misadventure at the time of the procedure | CPT/HCPCS: 11042 ==

== ENCOUNTER 2020-04-13 14:08 | Outpatient (CLI) | payer MEDICARE, SELFPAY | END 2020-04-13 14:09 | disposition home or self-care (01) | LOC: WOUND 14:11 | PROVIDERS: Family Provider Internal Medicine; PCP Internal Medicine; Visit Provider Thoracic Surgery (Cardiothoracic Vascular Surgery) | DX: T81.31XA Disruption of external operation (surgical) wound, not elsewhere classified, initial encounter (principal); Y83.8 Other surgical procedures as the cause of abnormal reaction of the patient, or of later complication, without mention of misadventure at the time of the procedure | CPT/HCPCS: 11042 ==

== ENCOUNTER 2020-04-20 08:55 | Outpatient (CLI) | payer MEDICARE, SELFPAY | END 2020-04-20 08:56 | disposition home or self-care (01) | PROVIDERS: Family Provider Internal Medicine; PCP Internal Medicine; Visit Provider Thoracic Surgery (Cardiothoracic Vascular Surgery) | DX: T81.31XA Disruption of external operation (surgical) wound, not elsewhere classified, initial encounter (principal); Y83.8 Other surgical procedures as the cause of abnormal reaction of the patient, or of later complication, without mention of misadventure at the time of the procedure; E11.622 Type 2 diabetes mellitus with other skin ulcer; L97.812 Non-pressure chronic ulcer of other part of right lower leg with fat layer exposed | CPT/HCPCS: 11042; 87070 ==

== ENCOUNTER 2020-04-23 08:02 | Outpatient (CLI) | payer MEDICARE, SELFPAY | END 2020-04-23 08:03 | disposition home or self-care (01) | LOC: WOUND 08:04 | PROVIDERS: Family Provider Internal Medicine; PCP Internal Medicine; Visit Provider Surgery | DX: L98.495 Non-pressure chronic ulcer of skin of other sites with muscle involvement without evidence of necrosis (principal); T81.31XD Disruption of external operation (surgical) wound, not elsewhere classified, subsequent encounter; Y83.8 Other surgical procedures as the cause of abnormal reaction of the patient, or of later complication, without mention of misadventure at the time of the procedure | CPT/HCPCS: 29581 ==

== ENCOUNTER 2020-04-27 09:01 | Outpatient (CLI) | payer MEDICARE, SELFPAY | END 2020-04-27 09:02 | disposition home or self-care (01) | LOC: WOUND 09:03 | PROVIDERS: Family Provider Internal Medicine; PCP Internal Medicine; Visit Provider Thoracic Surgery (Cardiothoracic Vascular Surgery) | DX: T81.31XA Disruption of external operation (surgical) wound, not elsewhere classified, initial encounter (principal); Y83.8 Other surgical procedures as the cause of abnormal reaction of the patient, or of later complication, without mention of misadventure at the time of the procedure; E11.622 Type 2 diabetes mellitus with other skin ulcer; L97.812 Non-pressure chronic ulcer of other part of right lower leg with fat layer exposed | CPT/HCPCS: 11042; 11045 ==

== ENCOUNTER 2020-04-29 10:05 | Outpatient (CLI) | payer MEDICARE, SELFPAY | END 2020-04-29 10:06 | disposition home or self-care (01) | LOC: WOUND 10:07 | PROVIDERS: Family Provider Internal Medicine; PCP Internal Medicine; Visit Provider Nurse Practitioner Family | DX: L98.495 Non-pressure chronic ulcer of skin of other sites with muscle involvement without evidence of necrosis (principal); T81.31XD Disruption of external operation (surgical) wound, not elsewhere classified, subsequent encounter; Y83.8 Other surgical procedures as the cause of abnormal reaction of the patient, or of later complication, without mention of misadventure at the time of the procedure | CPT/HCPCS: 29581 ==

== ENCOUNTER 2020-05-04 08:52 | Outpatient (CLI) | payer MEDICARE, SELFPAY | END 2020-05-04 08:53 | disposition home or self-care (01) | LOC: WOUND 08:53 | PROVIDERS: Family Provider Internal Medicine; PCP Internal Medicine; Visit Provider Thoracic Surgery (Cardiothoracic Vascular Surgery) | DX: T81.31XA Disruption of external operation (surgical) wound, not elsewhere classified, initial encounter (principal); E11.622 Type 2 diabetes mellitus with other skin ulcer; Y83.8 Other surgical procedures as the cause of abnormal reaction of the patient, or of later complication, without mention of misadventure at the time of the procedure; L97.812 Non-pressure chronic ulcer of other part of right lower leg with fat layer exposed | CPT/HCPCS: 11042; 11045 ==

== ENCOUNTER 2020-05-06 10:50 | Outpatient (CLI) | payer MEDICARE, SELFPAY | END 2020-05-06 10:51 | disposition home or self-care (01) | LOC: WOUND 10:51 | PROVIDERS: Family Provider Internal Medicine; PCP Internal Medicine; Visit Provider Nurse Practitioner Family | DX: Z51.89 Encounter for other specified aftercare (principal); T81.31XD Disruption of external operation (surgical) wound, not elsewhere classified, subsequent encounter; L98.495 Non-pressure chronic ulcer of skin of other sites with muscle involvement without evidence of necrosis | CPT/HCPCS: 29581 ==

== ENCOUNTER 2020-05-11 14:08 | Outpatient (CLI) | payer MEDICARE, SELFPAY | END 2020-05-11 14:09 | disposition home or self-care (01) | LOC: WOUND 14:09 | PROVIDERS: Family Provider Internal Medicine; PCP Internal Medicine; Visit Provider Surgery | DX: T81.31XA Disruption of external operation (surgical) wound, not elsewhere classified, initial encounter (principal); Y83.8 Other surgical procedures as the cause of abnormal reaction of the patient, or of later complication, without mention of misadventure at the time of the procedure; E11.622 Type 2 diabetes mellitus with other skin ulcer; L97.812 Non-pressure chronic ulcer of other part of right lower leg with fat layer exposed | CPT/HCPCS: 11042; 97597 ==

== ENCOUNTER 2020-05-14 13:10 | Outpatient (CLI) | payer MEDICARE, SELFPAY | END 2020-05-14 13:11 | disposition home or self-care (01) | LOC: WOUND 13:11 | PROVIDERS: Family Provider Internal Medicine; PCP Internal Medicine; Visit Provider Surgery | DX: Z51.89 Encounter for other specified aftercare (principal); L98.495 Non-pressure chronic ulcer of skin of other sites with muscle involvement without evidence of necrosis; T81.31XA Disruption of external operation (surgical) wound, not elsewhere classified, initial encounter; Y83.8 Other surgical procedures as the cause of abnormal reaction of the patient, or of later complication, without mention of misadventure at the time of the procedure | CPT/HCPCS: 29581 ==

== ENCOUNTER 2020-05-18 15:11 | Outpatient (CLI) | payer MEDICARE, SELFPAY | END 2020-05-18 15:12 | disposition home or self-care (01) | LOC: WOUND 15:14 | PROVIDERS: Family Provider Internal Medicine; PCP Internal Medicine; Visit Provider Thoracic Surgery (Cardiothoracic Vascular Surgery) | DX: T81.31XA Disruption of external operation (surgical) wound, not elsewhere classified, initial encounter (principal); Y83.8 Other surgical procedures as the cause of abnormal reaction of the patient, or of later complication, without mention of misadventure at the time of the procedure; E11.622 Type 2 diabetes mellitus with other skin ulcer; L97.812 Non-pressure chronic ulcer of other part of right lower leg with fat layer exposed | CPT/HCPCS: 11042 ==

== ENCOUNTER 2020-05-21 15:36 | Outpatient (CLI) | payer MEDICARE, SELFPAY | END 2020-05-21 15:37 | disposition home or self-care (01) | LOC: WOUND 15:37 | PROVIDERS: Family Provider Internal Medicine; PCP Internal Medicine; Visit Provider Surgery | DX: E11.622 Type 2 diabetes mellitus with other skin ulcer (principal); L97.812 Non-pressure chronic ulcer of other part of right lower leg with fat layer exposed; M79.604 Pain in right leg; L53.9 Erythematous condition, unspecified; M71.21 Synovial cyst of popliteal space [Baker], right knee | CPT/HCPCS: 11042; 93971 ==

== ENCOUNTER 2020-05-21 16:25 | Outpatient (CLI) | payer MEDICARE, SELFPAY ==
--- NOTE | 2020-05-21 16:42 | USR_ITS ---
PROCEDURE INFORMATION: Exam: US Duplex Right Lower Extremity Veins, Limited Exam date and time: 05/21/2020 4:46 PM Age: 69 years old Clinical indication: Pain; Leg, lower; Right; Additional info: Pain, redness TECHNIQUE: Imaging protocol: Real-time Duplex ultrasound of the Right Lower Extremity with 2-D murguia scale, color Doppler flow and spectral waveform analysis with image documentation. Limited exam was focused on the right lower extremity veins. COMPARISON: No relevant prior studies available. FINDINGS: Right deep veins: Unremarkable. The common femoral, femoral, proximal profunda femoral and popliteal veins are patent without thrombus. Normal Doppler waveforms. Normal compressibility and/or augmentation response. Right superficial veins: Unremarkable. Saphenofemoral junction is patent without thrombus. Soft tissues: 5.3 x 2.9 x 1.9 cm right medial popliteal cyst. US/[place] [id number] IMPRESSION: 1. No evidence for deep vein thrombosis. 2. Right popliteal cyst.
== END 2020-05-21 16:26 | disposition home or self-care (01) ==
LOC: RAD 16:27
PROVIDERS: Family Provider Internal Medicine; PCP Internal Medicine; Visit Provider Surgery
DX: M79.604 Pain in right leg (principal); L53.9 Erythematous condition, unspecified; M71.21 Synovial cyst of popliteal space [Baker], right knee
CPT/HCPCS: 93971

== ENCOUNTER 2020-05-25 15:07 | Outpatient (CLI) | payer MEDICARE, SELFPAY | END 2020-05-25 15:08 | disposition home or self-care (01) | LOC: WOUND 15:09 | PROVIDERS: Family Provider Internal Medicine; PCP Internal Medicine; Visit Provider Thoracic Surgery (Cardiothoracic Vascular Surgery) | DX: T81.31XA Disruption of external operation (surgical) wound, not elsewhere classified, initial encounter (principal); Y83.8 Other surgical procedures as the cause of abnormal reaction of the patient, or of later complication, without mention of misadventure at the time of the procedure; E11.622 Type 2 diabetes mellitus with other skin ulcer; L97.812 Non-pressure chronic ulcer of other part of right lower leg with fat layer exposed | CPT/HCPCS: 11042 ==

== ENCOUNTER 2020-05-28 07:51 | Outpatient (CLI) | payer MEDICARE, SELFPAY | END 2020-05-28 07:52 | disposition home or self-care (01) | LOC: WOUND 07:53 | PROVIDERS: Family Provider Internal Medicine; PCP Internal Medicine; Visit Provider Surgery | DX: E11.622 Type 2 diabetes mellitus with other skin ulcer (principal); L97.812 Non-pressure chronic ulcer of other part of right lower leg with fat layer exposed; L98.495 Non-pressure chronic ulcer of skin of other sites with muscle involvement without evidence of necrosis; T81.31XD Disruption of external operation (surgical) wound, not elsewhere classified, subsequent encounter; Y83.8 Other surgical procedures as the cause of abnormal reaction of the patient, or of later complication, without mention of misadventure at the time of the procedure | CPT/HCPCS: 29581 ==

== ENCOUNTER 2020-06-01 14:39 | Outpatient (CLI) | payer MEDICARE, SELFPAY | END 2020-06-01 14:40 | disposition home or self-care (01) | LOC: WOUND 14:44 | PROVIDERS: Family Provider Internal Medicine; PCP Internal Medicine; Visit Provider Thoracic Surgery (Cardiothoracic Vascular Surgery) | DX: T81.31XA Disruption of external operation (surgical) wound, not elsewhere classified, initial encounter (principal); Y83.8 Other surgical procedures as the cause of abnormal reaction of the patient, or of later complication, without mention of misadventure at the time of the procedure; E11.622 Type 2 diabetes mellitus with other skin ulcer; L97.812 Non-pressure chronic ulcer of other part of right lower leg with fat layer exposed | CPT/HCPCS: 11042; 87070; 87077; 87186 ==

== ENCOUNTER 2020-06-04 09:04 | Outpatient (CLI) | payer MEDICARE, SELFPAY ==
--- NOTE | 2020-06-04 09:27 | CT_ITS ---
WS: [id number] CT CHEST WITHOUT INTRAVENOUS CONTRAST HISTORY: S/P CABG, PAIN, NONHEALING ULCER DISRUPTION TECHNIQUE: Contiguous 5 mm axial imaging performed on the thorax. Coronal and sagittal reformats are submitted. All CT scans at [facility] use at least one of these dose optimization techniq ues: automated exposure control; mA and/or kV adjustment per patient size (includes targeted exams wh ere dose is matched to clinical indication); or iterative reconstruction. CONTRAST: None DLP: 951.37 mGycm COMPARISON: 03/23/2020 and 12/14/2019 Lungs and central airway: Chronic elevation of the LEFT hemidiaphragm with compressive atelectasis at the LEFT lung base. Partial aeration of the LEFT lower lobe. No pulmonary mass or nodule is identifi ed. Pleura: Normal. No pleural effusion. Heart and pericardium: Prior CABG. Cardiac chambers are slightly enlarged. No pericardial effusion. Mediastinum and vinay: No adenopathy. No stranding or inflammatory changes in the mediastinal fat. Vessels: Moderate atherosclerosis aorta. There is mild ectasia and dilatation. Chest wall and lower neck: Prior CABG. The soft tissue thickening along the median sternotomy site wh ich has significantly improved. There is a small area of soft tissue thickening along the central martin rnum measuring 3.3 x 1.5 cm. The previously described dehiscence is unchanged. There is no air along the sternotomy site on today's examination. Upper abdomen: No abnormality. Osseous structures: Severe thoracolumbar scoliosis with increased kyphosis. Extensive degenerative di sc disease and spondylosis. CT/CT chest wo con [id number] IMPRESSION: 1. Moderate decrease in size of the soft tissue changes associated with the st ernum and sternotomy site since 03/23/2020. There is a small residual postoperat marques seroma or healing wound infection now measuring 3.3 x 1.5 cm. 2. No mediastinal inflammation or fluid. 3. Mild sternal dehiscence inferiorly is unchanged. 4. Chronic elevation LEFT hemidiaphragm with compressive atelectasis at the LE FT lung base. 5. Extensive atherosclerosis aorta with tortuosity.
== END 2020-06-04 09:05 | disposition home or self-care (01) ==
PROVIDERS: Family Provider Internal Medicine; PCP Internal Medicine; Visit Provider Thoracic Surgery (Cardiothoracic Vascular Surgery)
DX: Z95.1 Presence of aortocoronary bypass graft (principal); R07.9 Chest pain, unspecified; L98.499 Non-pressure chronic ulcer of skin of other sites with unspecified severity; J98.11 Atelectasis; I70.0 Atherosclerosis of aorta
CPT/HCPCS: 71250

== ENCOUNTER 2020-06-08 15:36 | Outpatient (CLI) | payer MEDICARE, SELFPAY | END 2020-06-08 15:37 | disposition home or self-care (01) | LOC: WOUND 15:36 | PROVIDERS: Family Provider Internal Medicine; PCP Internal Medicine; Visit Provider Thoracic Surgery (Cardiothoracic Vascular Surgery) | DX: E11.622 Type 2 diabetes mellitus with other skin ulcer (principal); L97.812 Non-pressure chronic ulcer of other part of right lower leg with fat layer exposed | CPT/HCPCS: 99212 ==

== ENCOUNTER 2020-06-09 12:50 | Outpatient (CLI) | payer MEDICARE, SELFPAY ==
[2020-06-09 13:33] LABS: Basophils # 0.1 10^3/uL (0.0-0.1); Basophils % 1.5 %; Eosinophils # 0.3 10^3/uL (0.0-0.8); Eosinophils % 5.8 %; Hematocrit 31.6 % (37.0-47.0); Hemoglobin 9.7 g/dL (11.5-15.3); Lymphocytes % 17.9 %; Mean Corpuscular HGB Conc 30.7 g/dL (30.0-36.0); Mean Corpuscular Hemoglobin 30.3 pg (28.0-34.0); Mean Corpuscular Volume 98.8 fL (81-99); Mean Platelet Volume 10.6 fL (7.4-10.4); Monocytes # 0.3 10^3/uL (0.2-0.9); Monocytes % 6.2 %; Neutrophils # 3.61 10^3/uL (1.8-7.7); Neutrophils % 68.2 %; Nucleated Red Blood Cells % 0 %; Platelet Count 256 10^3/cmm (130-400); Red Cell Distribution Width 16.4 % (12.1-15.1); White Blood Count 5.3 10^3/uL (4.0-10.0)
[2020-06-09 14:26] LABS: Urine Creatinine 24 mg/dL (28-217); Urine Protein Random 5 mg/dL
[2020-06-09 14:35] LABS: Calcium 9.1 mg/dL (8.5-10.5); Parathyroid Hormone 158.8 pg/mL (15-65)
[2020-06-09 14:38] LABS: Alanine Aminotransferase 10 U/L (0-33); Alkaline Phosphatase 68 IU/L (35-105); Anion Gap 13.9 (5-19); Aspartate Amino Transferase 25 U/L (0-32); Blood Urea Nitrogen 34 mg/dL (8-23); Calcium 9.2 mg/dL (8.5-10.5); Carbon Dioxide 30 mmol/L (22-29); Chloride 97 mmol/L (98-107); Free T4 Free Thyroxine 0.31 ng/dL (0.82-1.77); Globulin 3.6 g/dL (1.3-4.6); Glucose 86 mg/dL (65-115); Osmolality Calculated 281 mOsm/kg (285-295); Potassium 3.9 mmol/L (3.5-5.1); Sodium 137 mmol/L (136-145); Total Bilirubin 0.3 mg/dL (0.15-1.2); Total Protein 7.6 g/dL (6.6-8.7); Uric Acid 9.5 mg/dL (2.4-5.7)
[2020-06-09 15:02] LABS: UPRO/UCREAT Ratio 0.21 mg/mg CR
[2020-06-09 15:08] LABS: Erythrocyte Sedimentation Rate 85 mm/hr (0-15)
[2020-06-09 15:28] LABS: 25 Hydroxy Vitamin D 30 ng/mL (30-100)
== END 2020-06-09 12:51 | disposition home or self-care (01) ==
PROVIDERS: PCP Internal Medicine; Visit Provider Internal Medicine
DX: I12.9 Hypertensive chronic kidney disease with stage 1 through stage 4 chronic kidney disease, or unspecified chronic kidney disease (principal)
CPT/HCPCS: 36415; 80053; 82306; 82310; 82570; 83970; 84156; 84439; 84443; 84550; 85025; 85651

== ENCOUNTER 2020-06-12 17:50 | Emergency (ER) | payer MEDICARE, SELFPAY ==
[2020-06-12 17:59] VITALS: BP 155/76; PULSE 47; RESP 18; TEMP 36.4; O2SAT 98; BMI 29.3
--- NOTE | 2020-06-12 18:16 | W.ED.EXTPRO ---
HPI - Extremity Problem General: Chief complaint: Extremity Problem,Nontraumatic Stated complaint: leg pain Time Seen by Provider: 06/12/20 18:07 History of Present Illness: HPI Narrative: Patient states she is having right lower leg pain was seen by her family provider on had a lab work done was told to come into the ER on Sunday she continued to have leg pain and weeping and get IV Lasix plus some pain control. Patient denies any dizziness says it just that her leg hurts and that she has continued weeping and she is not responding to her Bumex treatment. Complaint: extremity pain Onset (ago): month(s) Pain Consistency: constant Location: right and lower extremity Severity scale (1-10): 6 Quality: aching Relieving factors: nothing Exacerbating factors: nothing Associated symptoms: Reports no associated symptoms; Deny chest pain, fever(s) or rash Review of Systems Const: Denies: fever(s), chills or body aches Eyes: Denies: change in vision or blurry vision ENMT: Denies: throat pain or nasal congestion Card: Denies: chest pain or dyspnea on exertion Resp: Denies: dyspnea, productive cough or non-productive cough GI: Denies: abdominal pain, nausea or vomiting Musc: Reports: extremity pain and extremity swelling Skin/Breast: Denies: rash Neuro: Denies: headache(s) Psych: Denies: anxiety or depression Neal/Lymph: Denies: easy bruising PFSH ED PFSH: Medical History Acute on chronic diastolic (congestive) heart failure Anemia Benign essential hematuria Benign essential hypertension with target blood pressure below 140/90 CAD (coronary artery disease) Chronic kidney disease 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 Dyslipidemia Leg swelling NSTEMI (non-ST elevated myocardial infarction) Postoperative atrial fibrillation SOB (shortness of breath) Sternal wound dehiscence Tubal ligation evaluation Surgical History H/O hysterectomy for benign disease Status post aorto-coronary artery bypass graft Family History Brother CAD (coronary artery disease), Onset Age: 59 of myocardial infarction at age 59 Father CAD (coronary artery disease), Onset Age: 55 Had open heart surgery x3 Grandfather CAD (coronary artery disease), Onset Age: 55 Also of myocardial infarction in the late 50s Social History Smoking and tobacco status: former smoker Physical Exam Const: COMMON NORMALS: no acute distress, average body habitus and patient oriented x3 HENMT: COMMON NORMALS: normocephalic HEAD & SCALP: normal to inspection and normocephalic FACE & SINUS: normal facial exam Eye: COMMON NORMALS: conjunctivae normal GENERAL EYE: appearance normal, both eyes and all related structures CONJUNCTIVA: Yes conjunctivae normal Neck/C-Spine: COMMON NORMALS: no JVD Chest: COMMONS NORMALS: normal inspection of the chest Resp: COMMON NORMALS: normal respiratory effort and clear to auscultation bilaterally AUSCULTATION: clear to auscultation bilaterally Cardio: COMMON NORMALS: no JVD, regular rate and regular rhythm RATE: regular rate RHYTHM: regular rhythm GI: COMMON NORMALS: Normal to inspection, nondistended, normoactive bowel sounds present Extremity: COMMON NORMALS: full ROM NARRATIVE EXTREMITY EXAM: Patient has 4+ edema to both bilateral lower extremities has weeping to both of them right one has a wound that is not healing probably stage III. This have tenderness no redness noted is able to move the extremity Neuro: COMMON NORMALS: patient oriented x3 Course Vital Signs: Vital signs: Vital Signs Temperature 97.6 F 06/12/20 17:59 Pulse Rate 47 L 06/12/20 17:59 Respiratory Rate 18 06/12/20 17:59 Blood Pressure 155/76 06/12/20 17:59 Pulse Oximetry 98 06/12/20 17:59 Discharge Plan Discharge Prescriptions: No Action potassium chloride 20 mEq tablet extended release 20 meq PO BID Qty: 60 RF: 3 amiodarone 200 mg tablet 200 mg PO DAILY RF: 0 torsemide 100 mg tablet 100 mg PO DAILY Qty: 90 RF: 3 lisinopril 10 mg tablet 10 mg PO DAILY Qty: 90 RF: 3 atorvastatin 40 mg Tablet 20 mg PO BEDTIME Qty: 30 RF: 0 hydrocodone-acetaminophen 5-325 mg Tablet 1 - 2 tab PO Q4H PRN (Reason: Moderate To Severe Pain) Qty: 10 RF: 0 hydralazine 25 mg Tablet 25 mg PO Q8H Qty: 90 RF: 0 clopidogrel 75 mg Tablet 75 mg PO DAILY Qty: 30 RF: 0 aspirin 81 mg Tablet,Delayed Release (Dr/Ec) 81 mg PO DAILY Qty: 30 RF: 0 meclizine 25 mg Tablet 25 mg PO TID PRN (Reason: Dizziness) Qty: 10 RF: 0 pantoprazole 40 mg Tablet,Delayed Release (Dr/Ec) 40 mg PO DAILY Qty: 30 RF: 0 metoprolol tartrate 50 mg Tablet 50 mg PO BID Qty: 60 RF: 0 docusate sodium 100 mg Capsule 100 mg PO DAILY PRN (Reason: Constipation) Qty: 10 RF: 0 bisacodyl 5 mg Tablet,Delayed Release (Dr/Ec) 10 mg PO DAILY PRN (Reason: Constipation) Qty: 10 RF: 0 Thera 400 mcg Tablet 1 tab PO DAILY Qty: 30 RF: 0 liothyronine 5 mcg Tablet 5 mcg PO DAILY Qty: 30 RF: 0 Coding Level of Care Code ED Electrical Maintenance Engineer for Chg Fausto
[2020-06-12] MEDS: ondansetron 2 mg/ML SDV 2 mL 4 MG IVP (18:34)
[2020-06-12] MEDS: morphine 4 mg/mL SDV 1 mL IVP (18:35)
[2020-06-12] MEDS: FUROsemide 10 mg/mL SDV 4mL 40 MG IVP (18:37)
[2020-06-12 18:39] VITALS: BP 160/73; PULSE 50; RESP 14; O2SAT 98
[2020-06-12 18:59] LABS: Alanine Aminotransferase 11 U/L (0-33); Albumin Level 4.4 g/dL (3.5-5.2); Alkaline Phosphatase 69 IU/L (35-105); Anion Gap 17.7 (5-19); Aspartate Amino Transferase 24 U/L (0-32); Blood Urea Nitrogen 37 mg/dL (8-23); Calcium 9.7 mg/dL (8.5-10.5); Carbon Dioxide 25 mmol/L (22-29); Chloride 97 mmol/L (98-107); Creatinine Clr Calc Pharmacy 16.4358; Globulin 3.2 g/dL (1.3-4.6); Glucose 90 mg/dL (65-115); NT Pro B Type Natriuretic Pept 8275 pg/mL (0-125); Osmolality Calculated 277 mOsm/kg (285-295); Potassium 4.7 mmol/L (3.5-5.1); Sodium 135 mmol/L (136-145); Total Bilirubin 0.3 mg/dL (0.15-1.2); Total Protein 7.6 g/dL (6.6-8.7)
[2020-06-12] MEDS: orphenadrine 30 mg/mL Inj 2 mL IVP (19:20)
[2020-06-12] MEDS: HYDROcodone-acetaminophen 5-325 mg Tablet 1 TAB PO (20:04)
[2020-06-12 20:05] VITALS: BP 167/76; PULSE 50; RESP 16; O2SAT 98
== END 2020-06-12 20:06 | disposition home or self-care (01) ==
PROVIDERS: Emergency Provider Nurse Practitioner Family; PCP Internal Medicine
DX: M79.604 Pain in right leg (principal); Z79.02 Long term (current) use of antithrombotics/antiplatelets; Z79.82 Long term (current) use of aspirin; I11.0 Hypertensive heart disease with heart failure; I50.33 Acute on chronic diastolic (congestive) heart failure; I25.10 Atherosclerotic heart disease of native coronary artery without angina pectoris; E78.5 Hyperlipidemia, unspecified; Z95.1 Presence of aortocoronary bypass graft; Z87.891 Personal history of nicotine dependence
CPT/HCPCS: 12345; 80053; 83880; 96374; 96375; 99282; 99283; J1940; J2270; J2360; J2405

== ENCOUNTER 2020-06-15 14:32 | Outpatient (CLI) | payer MEDICARE, SELFPAY | END 2020-06-15 14:33 | disposition home or self-care (01) | LOC: WOUND 14:33 | PROVIDERS: PCP Internal Medicine; Visit Provider Thoracic Surgery (Cardiothoracic Vascular Surgery) | DX: E11.622 Type 2 diabetes mellitus with other skin ulcer (principal); L97.812 Non-pressure chronic ulcer of other part of right lower leg with fat layer exposed | CPT/HCPCS: 11042; 11045 ==

== ENCOUNTER 2020-06-16 14:43 | Outpatient (RCR) | payer MEDICARE, SELFPAY | END 2020-07-05 23:59 | disposition home or self-care (01) | LOC: SPT 14:43 | PROVIDERS: PCP Internal Medicine; Referring Provider Thoracic Surgery (Cardiothoracic Vascular Surgery); Visit Provider Thoracic Surgery (Cardiothoracic Vascular Surgery) | DX: L97.812 Non-pressure chronic ulcer of other part of right lower leg with fat layer exposed (principal) | CPT/HCPCS: 97140; 97161 ==

== ENCOUNTER 2020-06-22 14:01 | Outpatient (CLI) | payer MEDICARE, SELFPAY | END 2020-06-22 14:02 | disposition home or self-care (01) | LOC: WOUND 14:02 | PROVIDERS: PCP Internal Medicine; Visit Provider Nurse Practitioner Family | DX: E11.622 Type 2 diabetes mellitus with other skin ulcer (principal); L97.812 Non-pressure chronic ulcer of other part of right lower leg with fat layer exposed | CPT/HCPCS: 11042 ==

== ENCOUNTER 2020-06-29 13:34 | Outpatient (CLI) | payer MEDICARE, SELFPAY | END 2020-06-29 13:35 | disposition home or self-care (01) | LOC: WOUND 13:35 | PROVIDERS: PCP Internal Medicine; Visit Provider Thoracic Surgery (Cardiothoracic Vascular Surgery) | DX: E11.622 Type 2 diabetes mellitus with other skin ulcer (principal); L97.812 Non-pressure chronic ulcer of other part of right lower leg with fat layer exposed | CPT/HCPCS: 11042; 11045 ==

== ENCOUNTER 2020-07-05 11:46 | Outpatient (CLI) | payer MEDICARE, SELFPAY ==
[2020-07-05 12:12] LABS: Basophils # 0.1 10^3/uL (0.0-0.1); Basophils % 1.5 %; Eosinophils # 0.3 10^3/uL (0.0-0.8); Eosinophils % 4.2 %; Hematocrit 28.1 % (37.0-47.0); Hemoglobin 8.5 g/dL (11.5-15.3); Lymphocytes # 0.9 10^3/uL (0.8-4.8); Lymphocytes % 13.6 %; Mean Corpuscular HGB Conc 30.2 g/dL (30.0-36.0); Mean Corpuscular Hemoglobin 31.3 pg (28.0-34.0); Mean Corpuscular Volume 103.3 fL (81-99); Mean Platelet Volume 11.7 fL (7.4-10.4); Monocytes # 0.5 10^3/uL (0.2-0.9); Monocytes % 8.3 %; Neutrophils # 4.65 10^3/uL (1.8-7.7); Neutrophils % 71.9 %; Nucleated Red Blood Cells % 0.3 %; Platelet Count 231 10^3/cmm (130-400); Red Blood Count 2.72 10^6/uL (4.1-5.3); Red Cell Distribution Width 18.5 % (12.1-15.1); White Blood Count 6.5 10^3/uL (4.0-10.0)
[2020-07-05 13:20] LABS: Parathyroid Hormone 123.5 pg/mL (15-65)
[2020-07-05 13:21] LABS: 25 Hydroxy Vitamin D 29 ng/mL (30-100); Albumin Level 3.9 g/dL (3.5-5.2); Anion Gap 21.1 (5-19); Blood Urea Nitrogen 63 mg/dL (8-23); Calcium 8.7 mg/dL (8.5-10.5); Carbon Dioxide 21 mmol/L (22-29); Chloride 100 mmol/L (98-107); Glucose 100 mg/dL (65-115); Phosphorus 6.4 mg/dL (2.5-4.5); Potassium 5.1 mmol/L (3.5-5.1); Sodium 137 mmol/L (136-145)
[2020-07-05 13:27] LABS: Urine Creatinine 38 mg/dL (28-217); Urine Protein Random 10 mg/dL
[2020-07-05 13:28] LABS: UPRO/UCREAT Ratio 0.26 mg/mg CR
== END 2020-07-05 11:47 | disposition home or self-care (01) ==
LOC: LAB 11:52
PROVIDERS: PCP Internal Medicine; Visit Provider Internal Medicine Nephrology
DX: N18.3 Chronic kidney disease, stage 3 (moderate) (principal)
CPT/HCPCS: 80069; 82306; 82310; 82570; 83970; 84156; 85025

== ENCOUNTER 2020-07-06 06:00 | Outpatient (RCR) | payer MEDICARE, SELFPAY | END 2020-08-04 23:59 | disposition home or self-care (01) | LOC: SPT 06:00 | PROVIDERS: PCP Internal Medicine; Referring Provider Thoracic Surgery (Cardiothoracic Vascular Surgery); Visit Provider Thoracic Surgery (Cardiothoracic Vascular Surgery) | DX: L97.812 Non-pressure chronic ulcer of other part of right lower leg with fat layer exposed (principal) | CPT/HCPCS: 97140 ==

== ENCOUNTER 2020-07-06 13:59 | Outpatient (CLI) | payer MEDICARE, SELFPAY | END 2020-07-06 14:00 | disposition home or self-care (01) | LOC: WOUND 14:00 | PROVIDERS: PCP Internal Medicine; Visit Provider Thoracic Surgery (Cardiothoracic Vascular Surgery) | DX: E11.622 Type 2 diabetes mellitus with other skin ulcer (principal); L97.812 Non-pressure chronic ulcer of other part of right lower leg with fat layer exposed | CPT/HCPCS: 11042; 11045 ==

== ENCOUNTER 2020-07-20 15:01 | Outpatient (CLI) | payer MEDICARE, SELFPAY | END 2020-07-20 15:02 | disposition home or self-care (01) | LOC: WOUND 15:03 | PROVIDERS: PCP Internal Medicine; Visit Provider Thoracic Surgery (Cardiothoracic Vascular Surgery) | DX: E11.622 Type 2 diabetes mellitus with other skin ulcer (principal); L97.812 Non-pressure chronic ulcer of other part of right lower leg with fat layer exposed | CPT/HCPCS: 11042; 11045 ==

== ENCOUNTER 2020-07-27 10:02 | Outpatient (CLI) | payer MEDICARE, SELFPAY ==
[2020-07-27 12:07] LABS: Albumin Level 3.8 g/dL (3.5-5.2); Blood Urea Nitrogen 71 mg/dL (8-23); Calcium 9.3 mg/dL (8.5-10.5); Carbon Dioxide 26 mmol/L (22-29); Chloride 94 mmol/L (98-107); Glucose 102 mg/dL (65-115); Phosphorus 4.9 mg/dL (2.5-4.5); Sodium 137 mmol/L (136-145)
== END 2020-07-27 10:03 | disposition home or self-care (01) ==
LOC: LAB 10:06
PROVIDERS: Thoracic Surgery (Cardiothoracic Vascular Surgery); PCP Internal Medicine; Visit Provider Internal Medicine Nephrology
DX: N18.4 Chronic kidney disease, stage 4 (severe) (principal)
CPT/HCPCS: 36415; 80069

== ENCOUNTER 2020-07-27 10:13 | Outpatient (CLI) | payer MEDICARE, SELFPAY ==
--- NOTE | 2020-07-27 10:34 | USCV_ITS ---
Arvind Eliana Age: 69 Gender: F : 1950 Exam Date: 07/27/2020 10:25 Ordering Phys: Juan Stanford MD (Andy) ([email or web address] [email or web address]) Technologist: Exam Location: [facility] [place] Indication: PAIN REDNESS NON HEALING ULCER RIGHT LEFT Brachial 134.00 mmHg Brachial 144.00 mmHg Pressure (mmHg) Waveform Pressure (mmHg) Waveform SIGNAL MANAGER 141.00 DPA 140.00 Ankle/Brachial Index 0.98 62.00 Pre-Exercise Toe Pressure 56.00 0.43 Pre-Exercise Toe/Brachial Index 0.39 FINDINGS Moderately diminished resting TBI bilaterally Normal resting MODESTA on the left side MODESTA on the right side could not be obtained CONCLUSIONS Features of mild to moderate peripheral artery disease on the left side, possibly involving the distal vessels Possible moderate disease on the right side. Technically difficult study. No similar previous studies are available for comparison Dr Hoa Gill MD FAC (Electronically Signed) Final Date: 28 July 2020 20:38 S
--- NOTE | 2020-07-27 10:34 | USCV_ITS ---
Arvind Eliana Age: 69 Gender: F : 1950 Exam Date: 07/27/2020 10:46 Ordering Phys: Juan Stanford MD (Andy) ([email or web address]) Technologist: Lenka Clark Exam Location: [facility] [place] Indication: PAIN REDNESS NONHEALING ULCER Risk Factors: None Previous Vascular Surgery: None RIGHT LEFT BP: 144.0 / BP: 134.0/ 0 0 Waveform Velocity (cm/s) Velocity (cm/s) Waveform Biphasic 100.2 Iliac Prox 137.1 Biphasic Biphasic 109.6 Iliac Mid 104.5 Biphasic Biphasic 103.9 Iliac Distal 131.3 Biphasic Biphasic 73.7 PROPERTY DAMAGE CLAIMS ADJUSTOR 117.0 Biphasic Biphasic 110.3 SFA Prox 82.3 Biphasic Biphasic SFA Mid Monophasic 166.3 172.9 Biphasic 191.6 SFA Dist 119.5 Monophasic Biphasic 23.1 POP 66.5 Monophasic Biphasic 34.6 GLASS CLEANING MACHINE TENDER 61.8 Monophasic Biphasic 14.3 DPA 21.0 Monophasic MODESTA 1.0 FINDINGS UNABLE TO OBTAIN RT MODESTA DUE TO PT PAIN RT TBI 0.43 LT TBI 0.39 Moderate diffuse plaques in the superficial femoral artery bilaterally. Normal resting TBI on the left side CONCLUSIONS Abnormal resting TBIs bilaterally, suggestive of moderate peripheral arterial disease. Moderate diffuse heterogeneous plaques in the superficial femoral arteries bilaterally Technically somewhat limited study. Dr Hoa Gill MD [facility] (Electronically Signed) Final Date: 28 July 2020 20:42 S
== END 2020-07-27 10:14 | disposition home or self-care (01) ==
LOC: RAD 10:17
PROVIDERS: PCP Internal Medicine; Visit Provider Thoracic Surgery (Cardiothoracic Vascular Surgery)
DX: M79.604 Pain in right leg (principal); M79.605 Pain in left leg; L53.9 Erythematous condition, unspecified; L97.829 Non-pressure chronic ulcer of other part of left lower leg with unspecified severity; L97.819 Non-pressure chronic ulcer of other part of right lower leg with unspecified severity; E11.622 Type 2 diabetes mellitus with other skin ulcer; L97.812 Non-pressure chronic ulcer of other part of right lower leg with fat layer exposed
CPT/HCPCS: 11042; 11045; 93922; 93925

== ENCOUNTER 2020-07-27 14:49 | Outpatient (CLI) | payer MEDICARE, SELFPAY | END 2020-07-27 14:50 | disposition home or self-care (01) | LOC: WOUND 14:51 | PROVIDERS: PCP Internal Medicine; Visit Provider Thoracic Surgery (Cardiothoracic Vascular Surgery) | DX: E11.622 Type 2 diabetes mellitus with other skin ulcer (principal); L97.812 Non-pressure chronic ulcer of other part of right lower leg with fat layer exposed | CPT/HCPCS: 11042; 11045 ==

== ENCOUNTER 2020-08-03 15:10 | Outpatient (CLI) | payer MEDICARE, SELFPAY | END 2020-08-03 15:11 | disposition home or self-care (01) | LOC: WOUND 15:11 | PROVIDERS: PCP Internal Medicine; Visit Provider Thoracic Surgery (Cardiothoracic Vascular Surgery) | DX: E11.622 Type 2 diabetes mellitus with other skin ulcer (principal); L97.812 Non-pressure chronic ulcer of other part of right lower leg with fat layer exposed; L97.822 Non-pressure chronic ulcer of other part of left lower leg with fat layer exposed | CPT/HCPCS: 11042; 11045 ==

== ENCOUNTER 2020-08-09 10:55 | Emergency (ER) | payer MEDICARE, SELFPAY ==
--- NOTE | 2020-08-09 | CT_ITS ---
WS: [id number] CT HEAD TECHNIQUE: Noncontrast CT of the head obtained from the skullbase to the vertex. CLINICAL INFORMATION: FALL COMPARISON: None. DLP: 797.[address] scans at [facility] use at least one of these dose optimization techniques: automat ed exposure control; mA and/or kV adjustment per patient size (includes targeted exams where dose is matched to clinical indication); or iterative reconstruction. FINDINGS: No evidence of intracranial hemorrhage or mass effect. Ventricular system and basal cisterns are pressley nt. Moderate small vessel changes with moderate parenchymal volume loss. Chronic lacunar infarct righ t thalamus. No extra-axial fluid collections. No evidence of mass or mass effect. Normal murguia-white d ifferentiation. Intracranial vascular calcification. Paranasal sinuses and mastoid air cells are well aerated. .Normal visualized soft tissues. CT/CT head wo con* [id number] IMPRESSION: 1. No evidence of intracranial hemorrhage or mass effect. 2. Moderate small vessel changes with moderate parenchymal volume loss. 3. No acute intracranial findings.
[2020-08-09 10:59] VITALS: BP 135/66; PULSE 83; RESP 18; TEMP 36.7; O2SAT 98; BMI 25.4
--- NOTE | 2020-08-09 11:07 | CT_ITS ---
WS: [id number] CT FACIAL BONES TECHNIQUE: Noncontrast facial bones with coronal and sagittal reformatted images. CLINICAL INFORMATION: fall COMPARISON: None. DLP: 752.[address] scans at [facility] use at least one of these dose optimization techniques: automat ed exposure control; mA and/or kV adjustment per patient size (includes targeted exams where dose is matched to clinical indication); or iterative reconstruction. FINDINGS: Paranasal sinuses are well aerated. Mastoid air cells are well aerated. Nasal bones are normal in edilson earance. Normal zygoma. Normal pterygoid plates. Lateral orbits are normal in appearance. Mandible is normal in appearance. No evidence of mandibular fracture or dislocation. 2 to 3 mm chronic left righ t nasal septal deviation with rightward directed spur. Lateral orbits and orbital floors are normal i n appearance. CT/CT facial bones wo con* [id number] IMPRESSION: 1. No acute facial fractures. 2. Paranasal sinuses are well aerated. 3. No other significant findings. Notified Fer Lara DO at 08/09/2020 12:31 PM.
--- NOTE | 2020-08-09 11:09 | ED_ITS ---
HPI - Trauma General: Chief Complaint: Fall Stated Complaint: FALL, LAC TO FACE Time Seen by Provider: 08/09/20 11:02 History of Present Illness: HPI narrative: 69-year-old female brought in following a fall. Patient reports she was working in her camper when she stood up and fell. Patient reports that she gets dizzy when she stands up. But this is been going on for about 3 weeks and she has been evaluated by her primary care provider for that. Patient suffered a contusion and abrasion to her left forehead, her nasal bridge and has swelling under her left eye. She has no vision changes. She denies any other injury. MD complaint: fall Associated symptoms: Denies abdominal pain, back pain, chest pain, chills, fever(s), headache(s) or nausea Review of Systems Const: Denies: fever(s) or chills Eyes: Denies: change in vision or blurry vision ENMT: Reports: other (Please see HPI); Denies: throat pain Card: Denies: chest pain or palpitations Resp: Denies: dyspnea or wheezing GI: Denies: abdominal pain or nausea : Denies: flank pain, difficulty voiding or dysuria Musc: Reports: extremity swelling (Chronic lower extremity edema right greater than left); Denies: neck pain, back pain or extremity pain Skin/Breast: Reports: other (Chronic edema changes right leg with some weeping) Neuro: Denies: headache(s) or numbness in extremities Psych: Denies: anxiety or depression All/Imm: Denies: urticaria or throat swelling PFSH ED PFSH: Medical History Acute on chronic diastolic (congestive) heart failure Anemia Benign essential hematuria Benign essential hypertension with target blood pressure below 140/90 CAD (coronary artery disease) Chronic kidney disease 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 Dyslipidemia Leg swelling NSTEMI (non-ST elevated myocardial infarction) Postoperative atrial fibrillation SOB (shortness of breath) Sternal wound dehiscence Tubal ligation evaluation Surgical History H/O hysterectomy for benign disease Status post aorto-coronary artery bypass graft Family History Brother CAD (coronary artery disease), Onset Age: 59 of myocardial infarction at age 59 Father CAD (coronary artery disease), Onset Age: 55 Had open heart surgery x3 Grandfather CAD (coronary artery disease), Onset Age: 55 Also of myocardial infarction in the late 50s Social History Smoking and tobacco status: former smoker Physical Exam Const: COMMON NORMALS: no acute distress, average body habitus and patient oriented x3 Eye: COMMON NORMALS: Equal, round and reactive pupils present and EOMs intact bilaterally GENERAL EYE: other (Mild swelling lower periorbital left eye) PUPIL: Yes Equal, round and reactive pupils present Neck/C-Spine: COMMON NORMALS: full ROM and supple Resp: COMMON NORMALS: normal respiratory effort, No retractions, No use of accessory muscles and clear to auscultation bilaterally AUSCULTATION: clear to auscultation bilaterally Cardio: COMMON NORMALS: regular rate and regular rhythm RATE: regular rate RHYTHM: regular rhythm GI: COMMON NORMALS: Soft to palpation and non-tender PALPATION: Yes Soft to palpation Extremity: NARRATIVE EXTREMITY EXAM: 3+ edema right lower extremity with weeping, Neuro: COMMON NORMALS: patient oriented x3, CN's II-XII intact bilaterally, moves all extremities and no focal motor deficits Psych: COMMON NORMALS: mental status grossly normal, cooperative and normal affect Skin: NARRATIVE SKIN EXAM: Chronic skin changes from lymphedema with weeping and blisters on right lower leg MDM - Trauma MDM Narrative: Medical decision making narrative: Patient with no acute findings on CT head or CT face. There is some soft tissue edema but no acute fractures. No intracranial injury. Patient stable will be discharged home Imaging Data^: CT Head: Attestation: I personally reviewed and interpreted this imaging study as follows: My impression: no acute finding head ct or face ct Radiologist's impression: discussed with Radiologist, no acute findings. Discharge Plan Discharge Patient Disposition: Home Clinical Impression: Fall Qualifiers: Encounter type: initial encounter Qualified Code(s): W19.XXXA - Unspecified fall, initial encounter Abrasion of scalp Qualifiers: Encounter type: initial encounter Qualified Code(s): S00.01XA - Abrasion of scalp, initial encounter Contusion of face Qualifiers: Encounter type: initial encounter Qualified Code(s): S00.83XA - Contusion of other part of head, initial encounter Condition: Stable Prescriptions: No Action amiodarone 200 mg tablet 200 mg PO DAILY RF: 0 potassium chloride 20 mEq tablet extended release 20 meq PO BID Qty: 60 RF: 3 torsemide 100 mg tablet 100 mg PO DAILY Qty: 90 RF: 3 atorvastatin 40 mg Tablet 20 mg PO BEDTIME Qty: 30 RF: 0 clopidogrel 75 mg Tablet 75 mg PO DAILY Qty: 30 RF: 0 aspirin 81 mg Tablet,Delayed Release (Dr/Ec) 81 mg PO DAILY Qty: 30 RF: 0 meclizine 25 mg Tablet 25 mg PO TID PRN (Reason: Dizziness) Qty: 10 RF: 0 pantoprazole 40 mg Tablet,Delayed Release (Dr/Ec) 40 mg PO DAILY Qty: 30 RF: 0 metoprolol tartrate 50 mg Tablet 50 mg PO BID Qty: 60 RF: 0 liothyronine 5 mcg Tablet 5 mcg PO DAILY Qty: 30 RF: 0 bumetanide 2 mg tablet 2 mg PO BID RF: 0 hydrocodone-acetaminophen 5-325 mg tablet 1 tab PO Q8H PRN (Reason: Pain) RF: 0 metolazone 5 mg Tablet 5 mg PO DAILY RF: 0 lidocaine HCl 2 % jelly See Rx Instructions .ROUTE .COMPLEX RF: 0 pentoxifylline 400 mg tablet extended release 400 mg PO TID RF: 0 levothyroxine 100 mcg tablet 100 mcg PO DAILY RF: 0 gabapentin 100 mg Capsule 100 mg PO Q8H RF: 0 nystatin 100,000 unit/gram Powder See Rx Instructions .ROUTE .COMPLEX RF: 0 Cymbalta 30 mg Capsule,Delayed Release(Dr/Ec) 30 mg PO DAILY RF: 0 coenzyme Q10 [CoQ-10] 100 mg Capsule 100 mg PO PRN RF: 0 One-A-Day Women's 50 Plus 400-20 mcg Tablet 1 tab PO DAILY RF: 0 Discharge Orders: Discharge Order (Routine); Ordered 08/09/20 Ordered By: Fer Lara Referrals: Melina Weeks MD [Primary Care Provider] - Discharge Diet: Usual diet Discharge Activity: Resume usual activity Patient Instructions: Minor Head Injury (ED) Activity Restrictions/Additional Instructions: Follow-up with your primary care provider for continuation of care in the next 5 to 6 days Coding Level of Care Code ED Assistant Media Buyer for Chg Fwd Exam Comprehensive
[2020-08-09 12:39] VITALS: BP 124/56; PULSE 84; RESP 22; O2SAT 92
[2020-08-09 13:05] VITALS: BP 124/56; PULSE 84; RESP 22; O2SAT 92
== END 2020-08-09 13:05 | disposition home or self-care (01) ==
PROVIDERS: Emergency Provider Student in an Organized Health Care Education/Training Program; PCP Internal Medicine
DX: S00.01XA Abrasion of scalp, initial encounter (principal); S00.83XA Contusion of other part of head, initial encounter; Z79.02 Long term (current) use of antithrombotics/antiplatelets; Z79.82 Long term (current) use of aspirin; I10 Essential (primary) hypertension; I25.810 Atherosclerosis of coronary artery bypass graft(s) without angina pectoris; E78.5 Hyperlipidemia, unspecified; I25.2 Old myocardial infarction; Z87.891 Personal history of nicotine dependence; W19.XXXA Unspecified fall, initial encounter
CPT/HCPCS: 12345; 70450; 70486; 99282; 99283

== ENCOUNTER 2020-08-09 16:36 | Inpatient (IN) | payer MEDICARE, SELFPAY ==
[2020-08-09] VITALS (7 sets, daily range): BP systolic 107–133; BP diastolic 49–61; PULSE 76–92; RESP 18–22; TEMP 37.1–37.4; O2SAT 91–95; BMI 25.4
--- NOTE | 2020-08-09 16:53 | XRR_ITS ---
PROCEDURE INFORMATION: Exam: XR Abdomen, 1 View Exam date and time: 08/09/2020 5:36 PM Age: 69 years old Clinical indication: Injury or trauma; Vomiting; Blunt; Generalized; Injury details: Fall dizziness TECHNIQUE: Imaging protocol: XR of the abdomen. Views: Frontal supine view of the abdomen. 1 View. COMPARISON: CT chest abd pel wo con 03/23/2020 3:28 PM FINDINGS: Gastrointestinal tract: No dilated gas-filled loops of bowel. Vasculature: The abdominal aorta is atherosclerotic. Bones/joints: There is an S-shaped curvature of the thoracolumbar spine associated with multilevel disc degeneration and facet arthropathy. XR/XR KUB portable [id number] IMPRESSION: No bowel obstruction.
--- NOTE | 2020-08-09 16:53 | XRR_ITS ---
PROCEDURE INFORMATION: Exam: XR Chest, 1 View Exam date and time: 08/09/2020 5:34 PM Age: 69 years old Clinical indication: Injury or trauma; Fall; Other: Dizziness; Blunt trauma (contusions or hematomas); Additional info: Vomiting, weakness TECHNIQUE: Imaging protocol: XR of the chest Views: 1 view. COMPARISON: CT chest con [id number] 06/04/2020 9:35 AM FINDINGS: Lungs: No pneumonia or pulmonary edema. Pleural space: No pleural effusion or pneumothorax. Heart/Mediastinum: The heart is not enlarged allowing for the rotated portable nature of the exam. Prior CABG. Diaphragm: Pre-existing elevation of the left hemidiaphragm. Bones/joints: Prior median sternotomy. Bilateral glenohumeral joint degeneration. No acute fracture noted. Curvature of the thoracic spine convex to the right associated with multilevel disc degeneration. XR/XR chest 1V portable [id number] IMPRESSION: No acute abnormality.
[2020-08-09 17:22] LABS: Basophils # 0.1 10^3/uL (0.0-0.1); Basophils % 0.5 %; Eosinophils % 0.1 %; Hematocrit 34.3 % (37.0-47.0); Hemoglobin 10.9 g/dL (11.5-15.3); Lymphocytes # 1.2 10^3/uL (0.8-4.8); Mean Corpuscular HGB Conc 31.8 g/dL (30.0-36.0); Mean Corpuscular Hemoglobin 31.6 pg (28.0-34.0); Mean Corpuscular Volume 99.4 fL (81-99); Mean Platelet Volume 11.8 fL (7.4-10.4); Monocytes # 1.5 10^3/uL (0.2-0.9); Monocytes % 6.4 %; Neutrophils # 20.53 10^3/uL (1.8-7.7); Neutrophils % 87.4 %; Nucleated Red Blood Cells % 0 %; Platelet Count 329 10^3/cmm (130-400); Red Blood Count 3.45 10^6/uL (4.1-5.3); White Blood Count 23.5 10^3/uL (4.0-10.0)
[2020-08-09] MEDS: sodium chloride 0.9% 500 ML IV (17:23)
[2020-08-09] MEDS: fentaNYL 50 mcg/mL INJ 2mL 25 MCG IVP (17:34)
--- NOTE | 2020-08-09 17:34 | ED_ITS ---
HPI - Recheck/Abnormal Lab/Rx General: Chief Complaint: Recheck/Abnormal Lab/Rx Stated Complaint: FALL, CHEST PAIN Time Seen by Provider: 08/09/20 16:53 History of Present Illness: HPI narrative: 69-year-old female sent in by her primary care provider and clerical supervisor. Patient has chronic kidney disease. They report that last they had her labs drawn and compared to a week earlier. They report that her creatinine went from 1-4. They sent her in here for recheck of her labs and then transfer to her clerical supervisor at [facility]. Patient was seen earlier this morning and had complaints of chronic dizziness but was seen primarily for facial abrasions and contusions following a trip and fall. Her daughter reports that they did not think of it earlier when seen but reports that she has been having some abdominal cramping and vomiting over the weekend. Patient did not mention this to me this morning nor did her daughter. Patient denies any fevers or chills. She does have chronic leg pain and chronic shakiness which she also complaining of Review of Systems Const: Reports: malaise; Denies: fever(s) or chills Eyes: Denies: change in vision or blurry vision ENMT: Denies: throat pain Card: Denies: chest pain or palpitations Resp: Denies: dyspnea or productive cough GI: Reports: abdominal pain and vomiting : Denies: flank pain or difficulty voiding Musc: Reports: other (Chronic pain) Skin/Breast: Denies: rash or pruritus Neuro: Reports: dizziness [facility] PFSH: Medical History (Updated 08/09/20 @ 20:27 by Fer Lara DO) Acute on chronic diastolic (congestive) heart failure Anemia Benign essential hematuria Benign essential hypertension with target blood pressure below 140/90 CAD (coronary artery disease) Chronic kidney disease 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 Dyslipidemia Leg swelling NSTEMI (non-ST elevated myocardial infarction) Postoperative atrial fibrillation SOB (shortness of breath) Sternal wound dehiscence Tubal ligation evaluation Surgical History H/O hysterectomy for benign disease Status post aorto-coronary artery bypass graft Family History Brother CAD (coronary artery disease), Onset Age: 59 of myocardial infarction at age 59 Father CAD (coronary artery disease), Onset Age: 55 Had open heart surgery x3 Grandfather CAD (coronary artery disease), Onset Age: 55 Also of myocardial infarction in the late 50s Social History Smoking and tobacco status: former smoker Physical Exam Const: COMMON NORMALS: average body habitus and alert GENERAL APPEARANCE: cooperative Resp: COMMON NORMALS: normal respiratory effort, No use of accessory muscles and clear to auscultation bilaterally AUSCULTATION: clear to auscultation bilaterally Cardio: COMMON NORMALS: regular rate and regular rhythm RATE: regular rate RHYTHM: regular rhythm GI: COMMON NORMALS: Soft to palpation and non-tender PALPATION: Yes Soft to palpation : COMMON NORMALS: Yes no CVA tenderness BLADDER/KIDNEY EXAM: Yes no CVA tenderness Back/Pelvis: COMMON NORMALS: no CVA tenderness Neuro: COMMON NORMALS: CN's II-XII intact bilaterally, moves all extremities and no focal motor deficits SENSORIUM/ORIENTATION: Yes alert Psych: COMMON NORMALS: mental status grossly normal and cooperative Skin: COMMON NORMALS: no rashes or lesions noted GENERAL SKIN EXAM: no rashes or lesions noted Course Vital Signs: Vital signs: Vital Signs Temperature 99.3 F 08/09/20 19:49 Pulse Rate 76 08/09/20 21:03 Respiratory Rate 18 08/09/20 21:03 Blood Pressure 107/57 08/09/20 21:03 Pulse Oximetry 94 08/09/20 21:03 MDM - Recheck/Abnormal Lab/Rx MDM Narrative: Medical decision making narrative: Patient with a viral gastroenteritis. Patient with likely some dehydration with acute on chronic kidney disease. Dr. Weeks would like patient transferred to [facility] at the request of Dr. Lucero the patient's clerical supervisor. However [facility] is currently on diversion. Patient will be accepted here to Dr. Flores for rehydration and further evaluation. Patient was admitted in stable condition Lab Data: Attestation: I reviewed the patient's lab results. Labs: Lab Results 08/09/20 08/09/20 08/09/20 Range/Units 17:14 17:14 18:30 WBC 23.5 H (4.0-10.0) 10^3/ uL RBC 3.45 L (4.1-5.3) 10^6/u L Hgb 10.9 L (11.5-15.3) g/dL Hct 34.3 L (37.0-47.0) % MCV 99.4 H (81-99) fL MCH 31.6 (28.0-34.0) pg MCHC 31.8 (30.0-36.0) g/dL RDW 15.0 (12.1-15.1) % Plt Count 329 (130-400) 10^3/c mm MPV 11.8 H (7.4-10.4) fL Neut % (Auto) 87.4 % Lymph % (Auto) 5.0 % [place] % (Auto) 6.4 % Eos % (Auto) 0.1 % Baso % (Auto) 0.5 % Neut # (Auto) 20.53 H (1.8-7.7) 10^3/u L Lymph # (Auto) 1.2 (0.8-4.8) 10^3/u L [place] # (Auto) 1.5 H (0.2-0.9) 10^3/u L Eos # (Auto) 0.0 (0.0-0.8) 10^3/u L Baso # (Auto) 0.1 (0.0-0.1) 10^3/u L Nucleated RBC % (a uto) 0 % Nucleated RBCs # 0.0 /100WBC Sodium 130 L (136-145) mmol/L Potassium 4.0 (3.5-5.1) mmol/L Chloride 87 L (98-107) mmol/L Carbon Dioxide 23 (22-29) mmol/L Anion Gap 24.0 H (5-19) BUN 81 H (8-23) mg/dL Creatinine 3.2 H (0.5-0.9) mg/dL GFR Calculation Not Reportable Glucose 124 H (65-115) mg/dL Calculated Osmolal ity 296 H (285-295) mOsm/k g Lactic Acid (0.5-2.2) mmol/L Calcium 10.0 (8.5-10.5) mg/dL Phosphorus (2.5-4.5) mg/dL Magnesium 1.9 (1.7-2.3) mg/dL Total Bilirubin 0.4 (0.15-1.2) mg/dL AST 28 (0-32) U/L ALT 13 (0-33) U/L Alkaline Phosphata se 111 H (35-105) IU/L Total Protein 7.9 (6.6-8.7) g/dL Albumin 3.0 L (3.5-5.2) g/dL Globulin 4.9 H (1.3-4.6) g/dL Urine Color Yellow (Yellow) Urine Appearance Clear (CLEAR) Urine pH 5 (5-7) Ur Specific Gravit y 1.010 (1.005-1.030) Urine Protein Neg (Negative) Urine Glucose (UA) Norm (Normal) Urine Ketones Negative (Negative) Urine Blood Neg (Negative) Urine Nitrate Negative (Negative) Urine Bilirubin Neg (Negative) Urine Urobilinogen Norm (Negative) mg/dL Ur Leukocyte Veronica ase Negative (Negative) 08/09/20 08/09/20 Range/Units 19:50 19:50 WBC (4.0-10.0) 10^3/ uL RBC (4.1-5.3) 10^6/u L Hgb (11.5-15.3) g/dL Hct (37.0-47.0) % MCV (81-99) fL MCH (28.0-34.0) pg MCHC (30.0-36.0) g/dL RDW (12.1-15.1) % Plt Count (130-400) 10^3/c mm MPV (7.4-10.4) fL Neut % (Auto) % Lymph % (Auto) % [place] % (Auto) % Eos % (Auto) % Baso % (Auto) % Neut # (Auto) (1.8-7.7) 10^3/u L Lymph # (Auto) (0.8-4.8) 10^3/u L [place] # (Auto) (0.2-0.9) 10^3/u L Eos # (Auto) (0.0-0.8) 10^3/u L Baso # (Auto) (0.0-0.1) 10^3/u L Nucleated RBC % (a uto) % Nucleated RBCs # /100WBC Sodium (136-145) mmol/L Potassium (3.5-5.1) mmol/L Chloride (98-107) mmol/L Carbon Dioxide (22-29) mmol/L Anion Gap (5-19) BUN (8-23) mg/dL Creatinine (0.5-0.9) mg/dL GFR Calculation Glucose (65-115) mg/dL Calculated Osmolal ity (285-295) mOsm/k g Lactic Acid 1.2 (0.5-2.2) mmol/L Calcium (8.5-10.5) mg/dL Phosphorus 3.1 (2.5-4.5) mg/dL Magnesium 1.8 (1.7-2.3) mg/dL Total Bilirubin (0.15-1.2) mg/dL AST (0-32) U/L ALT (0-33) U/L Alkaline Phosphata se (35-105) IU/L Total Protein (6.6-8.7) g/dL Albumin (3.5-5.2) g/dL Globulin (1.3-4.6) g/dL Urine Color (Yellow) Urine Appearance (CLEAR) Urine pH (5-7) Ur Specific Gravit y (1.005-1.030) Urine Protein (Negative) Urine Glucose (UA) (Normal) Urine Ketones (Negative) Urine Blood (Negative) Urine Nitrate (Negative) Urine Bilirubin (Negative) Urine Urobilinogen (Negative) mg/dL Ur Leukocyte Veronica ase (Negative) Imaging Data^: CT Abd/Pel: Radiologist's impression: IMPRESSION: 1. Fluid within the small bowel and colon without evidence of bowel wall thickening. This may reflect viral gastroenteritis in the appropriate clinical situation. 2. 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 No hydroureteronephrosis. Findings are stable. 3. Incidental/nonacute findings are listed in the report. Discharge Plan Discharge Patient Disposition: Admitted As Inpatient Clinical Impression: Viral gastroenteritis, Acute kidney injury superimposed on CKD, Acute dehydration Condition: Stable Referrals: Melina Weeks MD [Primary Care Provider] - Coding Level of Care Code ED Treasury Accountant for Chg Fwd Exam Comprehensive
[2020-08-09 17:45] LABS: Alanine Aminotransferase 13 U/L (0-33); Alkaline Phosphatase 111 IU/L (35-105); Carbon Dioxide 23 mmol/L (22-29); Chloride 87 mmol/L (98-107); Globulin 4.9 g/dL (1.3-4.6); Glucose 124 mg/dL (65-115); Magnesium 1.9 mg/dL (1.7-2.3); Osmolality Calculated 296 mOsm/kg (285-295); Sodium 130 mmol/L (136-145); Total Bilirubin 0.4 mg/dL (0.15-1.2); Total Protein 7.9 g/dL (6.6-8.7)
--- NOTE | 2020-08-09 18:01 | PC.NURSE ---
Legs wrapped Cleansed with saline, applied 2% lidocain per patient and Dr. sawyer. Covered with ABD pads, wrapped with kerlix, taped.
[2020-08-09 18:06] LABS: Blood Urea Nitrogen 81 mg/dL (8-23)
[2020-08-09 18:07] LABS: Aspartate Amino Transferase 28 U/L (0-32)
--- NOTE | 2020-08-09 18:19 | CTR_ITS ---
PROCEDURE INFORMATION: Exam: CT Abdomen And Pelvis Without Contrast Exam date and time: 08/09/2020 6:22 PM Age: 69 years old Clinical indication: Abnormal findings; Abnormal lab test; Elevated wbc; Nausea and vomiting; Prior surgery; Surgery type: Tubal, hyst, gb, appy, bladder; Additional info: Vomiting, elevated wbc. TECHNIQUE: Imaging protocol: Computed tomography of the abdomen and pelvis without contrast. Sagittal and coronal reformatted images were created and reviewed. Radiation optimization: All CT scans at this facility use at least one of these dose optimization techniques: automated exposure control; mA and/or kV adjustment per patient size (includes targeted exams where dose is matched to clinical indication); or iterative reconstruction. COMPARISON: CT chest abd pel wo con 03/23/2020 3:28 PM RADIATION DOSE METRICS: Total DLP (mGy-cm): 851.38 FINDINGS: Limitations: Evaluation of solid organs and vasculature is limited without intravenous contrast. Lungs: Moderate elevation of the left hemidiaphragm. Compressive atelectasis in the the left lower lobe. Pleural space: No pleural effusion. Heart: Stable mild enlargement of the visualized portions of the heart. Liver: The liver is unremarkable. Gallbladder and bile ducts: Stable findings consistent with a previous cholecystectomy. No biliary ductal dilatation. Pancreas: The pancreas is unremarkable. No pancreatic ductal dilatation. Spleen: The spleen is unremarkable. Adrenals: The right and left adrenal glands are unremarkable. Kidneys and ureters: The right ureter is unremarkable. 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 No hydroureteronephrosis. Findings are stable. Stomach and bowel: Fluid within the small bowel and colon without evidence of bowel wall thickening. The stomach is collapsed, which can limit evaluation. No focal abnormality in the stomach otherwise. Appendix: The appendix is visualized and is unremarkable. No findings to suggest acute appendicitis. Intraperitoneal space: No free intraperitoneal air. No ascites. No loculated fluid collections to suggest an abscess. Vasculature: Atherosclerotic calcification in the coronary arteries. Stable moderate atherosclerotic calcifications in the visualized arteries. No evidence for aortic aneurysm. Lymph nodes: No lymphadenopathy. Urinary bladder: Unremarkable as visualized. Reproductive: Stable changes consistent with a previous hysterectomy. The ovaries are not definitely visualized, not an expected in a postmenopausal female. This may be due to ovarian atrophy. Alternatively, the patient may have had a previous bilateral oophorectomy. Findings are stable. Bones/joints: Poststernotomy changes in the chest are partially visualized. Bones are diffusely osteopenic. Mild degenerative changes at both the right and left hips. Mild degenerative changes of the right and left sacroiliac joints. Multilevel degenerative changes of varying severity in the visualized spine. Mild scoliosis in the visualized spine. Osseous findings are stable. Soft tissues: There are epicardial pacing wires redemonstrated. The ends of the leads are in the subcutaneous tissues over the anterior upper abdomen. Findings are stable. No acute abnormality in the extra-abdominal soft tissues. Soft tissue calcification in the right gluteal subcutaneous tissues may represent an injection granuloma versus sequela of remote trauma. CT/CT abdomen pelvis wo con [id number] IMPRESSION: 1. Fluid within the small bowel and colon without evidence of bowel wall thickening. This may reflect viral gastroenteritis in the appropriate clinical situation. 2. 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 No hydroureteronephrosis. Findings are stable. 3. Incidental/nonacute findings are listed in the report. Radiation Dose CTDIVOL = (mGy): DLP = 851.38 (mGy-cm)
[2020-08-09 18:41] LABS: Add Urine Microscopic? NO
[2020-08-09 18:50] LABS: Bilirubin Urine Neg (Negative); Blood Urine Neg (Negative); Glucose Urine UA Norm (Normal); Ketones Urine Negative (Negative); Leukocyte Esterase Urine Negative (Negative); Nitrate Urine Negative (Negative); Protein Urine Neg (Negative); Urine Appearance Clear (CLEAR); Urine Color Yellow (Yellow); Urobilinogen Urine Norm (Negative); pH Urine 5 (5-7)
[2020-08-09] MEDS: acetaminophen 500 mg Tablet 1000 MG PO (20:15)
[2020-08-09 20:26] LABS: Lactic Sepsis W/Reflex 1.2 mmol/L (0.5-2.2); Magnesium 1.8 mg/dL (1.7-2.3); Phosphorus 3.1 mg/dL (2.5-4.5)
[2020-08-09] MEDS: sodium chloride 0.9% 1,000 ML 125 ML IV (21:02)
[2020-08-09] MEDS: morphine 4 mg/mL SDV 1 mL 1 MG IVP (21:47)
--- NOTE | 2020-08-09 22:04 | PC.NURSE ---
PT swabbed for covid and sent to lab.
--- NOTE | 2020-08-09 22:12 | P.HP_ITS ---
Providers/Chief Complaint Primary Care Provider: Melina Weeks MD Chief Complaint: FALL, CHEST PAIN History of Present Illness Eliana Samuels is a 69 year old female with a past medical history of CABGX2 with history of wound dehiscence status post multiple debridements, wound VAC, postoperative atrial fibrillation on amiodarone, CKD, bilateral lower extremity edema on Bumex and metolazone, insulin-dependent type 2 diabetes mellitus, hypothyroidism on liothyronine and levothyroxine, who presents to [facility] for the second time for concerns for worsening kidney function. Patient tells me that she lives beside her daughter, she lives out over RV, this morning she was having episodes of lightheadedness and dizziness, she has been having this for some period of time, she tells me that she feels unsteady on her feet, the room spins around her, no nausea, no vomiting, no chest pain, shortness of breath, has had a couple of near misses and near falls. She got up to use the bathroom, she did feel lightheaded and dizzy a bit, she went towards the bathroom, she stated that she tripped and fell on the floor, was on the floor for roughly 2 hours before her daughter discovered her, she did have head trauma, presented to the ER, had a CT of her head and face, with no acute fractures, sent home. When she came home, her daughter received a call from Dr. Lucero's office that her creatinine had increased, she should come to the emergency room. Patient tells me that her primary complaint is bilateral lower extremity pain, she has severe bilateral lower extremity pain, she sees the wound clinic for ulcers order bilateral shins, patient is screaming, writhing in pain as I removed her dressing, she cried for some period of time as she was in so much pain. Daughter at bedside tells me that they go through this daily, that she has seen the wound clinic, she has had ABIs done, but they do not really have an answer to why she is in so much pain. She denies any headaches, blurry vision, her back is sore,. She has had episodes of diarrhea over the weekend, has been having intermittent episodes of fevers,, chills, poor appetite, her son-in-law tested positive for COVID, she lives beside him in her RV, this was back in early July, she has never been tested. Review of Systems Const: Reports: fever(s), chills, change in appetite, fatigue and malaise Eyes: Denies: change in vision or blurry vision ENMT: Denies: nasal congestion Resp: Denies: dyspnea, productive cough, non-productive cough or wheezing GI: Reports: diarrhea; Denies: abdominal pain, nausea, vomiting, hematemesis, constipation, hematochezia or melena : Denies: flank pain, dysuria or urinary frequency Musc: Reports: back pain, extremity pain and extremity swelling; Denies: neck pain Skin/Breast: Denies: rash Neuro: Denies: headache(s), dizziness or vertigo Psych: Denies: anxiety or depression Endo: Denies: polyuria or polydipsia Medications/Allergies Home Medications Medication Instructions Recorded Confirmed Last Taken Type aspirin 81 mg PO DAILY #30 tab 12/02/19 08/09/20 08/08/20 Rx atorvastatin 20 mg PO BEDTIME #30 tab 12/02/19 08/09/20 08/08/20 Rx clopidogrel 75 mg PO DAILY #30 tab 12/02/19 08/09/20 08/08/20 Rx liothyronine 5 mcg PO DAILY #30 tab 12/02/19 08/09/20 08/08/20 Rx meclizine 25 mg PO TID PRN #10 tab 12/02/19 08/09/20 08/08/20 Rx metoprolol tartrate 50 mg PO BID #60 tab 12/02/19 08/09/20 08/08/20 Rx pantoprazole 40 mg PO DAILY #30 tab 12/02/19 08/09/20 08/08/20 Rx amiodarone 200 mg tablet 200 mg PO DAILY 05/11/20 08/09/20 08/08/20 History coenzyme Q10 [CoQ-10] 100 mg PO PRN 06/12/20 08/09/20 06/11/20 History mv,Ca,min-folic acid-vit K1 1 tab PO DAILY 06/12/20 08/09/20 08/08/20 History [One-A-Day Women's 50 Plus] potassium chloride 20 mEq 20 meq PO BID #60 tab 07/07/20 08/09/20 08/08/20 Rx tablet,extended release torsemide 100 mg tablet 100 mg PO DAILY #90 tab 07/16/20 08/09/20 Unknown Rx bumetanide 2 mg PO BID 08/09/20 08/09/20 08/08/20 History duloxetine [Cymbalta] 30 mg PO DAILY 08/09/20 08/09/20 Unknown History gabapentin 100 mg PO Q8H 08/09/20 08/09/20 Unknown History hydrocodone-acetaminophen 1 tab PO Q8H PRN 08/09/20 08/09/20 08/09/20 History levothyroxine 100 mcg PO DAILY 08/09/20 08/09/20 Unknown History lidocaine HCl See Rx Instructions .ROUTE .COMPLEX 08/09/20 08/09/20 Unknown History metolazone 5 mg PO DAILY 08/09/20 08/09/20 Unknown History nystatin See Rx Instructions .ROUTE .COMPLEX 08/09/20 08/09/20 Unknown History pentoxifylline 400 mg PO TID 08/09/20 08/09/20 Unknown History Allergies Allergy/AdvReac Type Severity Reaction Status Date / Time No Known Allergies Allergy Verified 08/09/20 16:48 PFSH Acute PFSH: Medical History (Updated 08/09/20 @ 22:26 by Lb Chamorro MD) Acute on chronic diastolic (congestive) heart failure Anemia Benign essential hematuria Benign essential hypertension with target blood pressure below 140/90 CAD (coronary artery disease) Chronic kidney disease 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 Dyslipidemia Leg swelling NSTEMI (non-ST elevated myocardial infarction) Postoperative atrial fibrillation SOB (shortness of breath) Sternal wound dehiscence Tubal ligation evaluation Surgical History H/O hysterectomy for benign disease Status post aorto-coronary artery bypass graft Family History Brother CAD (coronary artery disease), Onset Age: 59 of myocardial infarction at age 59 Father CAD (coronary artery disease), Onset Age: 55 Had open heart surgery x3 Grandfather CAD (coronary artery disease), Onset Age: 55 Also of myocardial infarction in the late 50s Social History Smoking and tobacco status: former smoker Vitals/I&O/Wt Last Vital Signs Temp 99.3 F 08/09/20 19:49 Pulse 82 08/09/20 22:05 Resp 18 08/09/20 22:05 BP 115/53 08/09/20 22:05 Pulse Ox 91 08/09/20 22:05 Weight last 48 hrs Weight 71.668 kg Physical Exam Const: COMMON NORMALS: patient oriented x3 GENERAL APPEARANCE: cooperative and comfortable OTHER: Is in extreme pain, when bilateral extremities are unwrapped HENMT: COMMON NORMALS: normocephalic HEAD & SCALP: normocephalic Eye: COMMON NORMALS: Equal, round and reactive pupils present and EOMs intact bilaterally GENERAL EYE: appearance normal, both eyes and all related structures PUPIL: Yes Equal, round and reactive pupils present OTHER: Scalp contusion, nasal bridge contusion Neck/C-Spine: COMMON NORMALS: full ROM, no lymphadenopathy, no JVD and Thyroid normal THYROID: Thyroid normal Lymph: LYMPHATIC: no lymphadenopathy noted Resp: COMMON NORMALS: normal respiratory effort, No retractions, No use of accessory muscles and clear to auscultation bilaterally AUSCULTATION: clear to auscultation bilaterally Cardio: COMMON NORMALS: no JVD, regular rate, regular rhythm, S1 normal heart sound present, S2 normal heart sound present, No gallops present (Cardio), No clicks present (Cardio) and No murmurs present (Cardio) RATE: regular rate RHYTHM: regular rhythm HEART SOUNDS: S1 normal heart sound present and S2 normal heart sound present GI: COMMON NORMALS: Normal to inspection, nondistended, normoactive bowel gabbie nds present, Soft to palpation, non-tender and No hepatosplenomegaly present PALPATION: Yes Soft to palpation and Yes No hepatosplenomegaly present Extremity: COMMON NORMALS: normal to inspection, full ROM and no pedal edema Neuro: COMMON NORMALS: patient oriented x3, CN's II-XII intact bilaterally, moves all extremities and no focal motor deficits Psych: COMMON NORMALS: mental status grossly normal, Normal thought process present and cooperative THOUGHT PROCESS: Normal thought process present Skin: OTHER: Right lower extremity, superficial ulcers, multiple, largest 2 x 2 cm Data : 08/09/20 17:14 08/09/20 17:14 A&P Assessment and plan (1) Acute kidney injury superimposed on CKD: -EDMUNDO on CKD -Multifactorial related to dehydration, gastroenteritis, Bumex and metolazone -Patient does have a significant systolic murmur, concerns for fluid overload -Gentle IV hydration normal saline at 50 cc an hour, monitor creatinine -CT scan of the abdomen, no hydronephrosis, no nephrolithiasis, UA negative for UTI Status: Acute (2) Acute dehydration: -Gentle IV hydration Status: Acute (3) Viral gastroenteritis: -Seen on CT scan of the abdomen, has complaints of 2 bouts of diarrhea, will get stool cultures -Gentle IV hydration -Rapid COVID Status: Acute (4) Abrasion of scalp: Status: Acute Qualifiers: Encounter type: initial encounter Qualified Code(s): S00.01XA - Abrasion of scalp, initial encounter (5) Contusion of face: Status: Acute Qualifiers: Encounter type: initial encounter Qualified Code(s): S00.83XA - Contusion of other part of head, initial encounter (6) Fall: -Complaints of lightheadedness and dizziness -This fall is a component of mechanical and nonmechanical features -Has history of TIA, is on aspirin, Plavix, statin -We will order carotid ultrasound, cardiac echocardiogram -Does have a significant systolic murmur on exam Status: Acute Qualifiers: Encounter type: initial encounter Qualified Code(s): W19.XXXA - Unspecified fall, initial encounter (7) 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: Status: Acute Qualifiers: Associated angina: without angina Qualified Code(s): I25.810 - Atherosclerosis of coronary artery bypass graft(s) without angina pectoris (8) Bilateral lower leg cellulitis: -Concerns for bilateral lower extremity cellulitis, areas of purulent drainage, has had MRSA growing in wound cultures in the past -With underlying peripheral arterial disease with concerns for limb ischemia -Possible history of diabetic ulcers? We will order hemoglobin A1c -Will order x-rays to rule out underlying osteomyelitis, wound cultures, pro- Hernan, CRP, ESR -Given history of CABG, order venous ultrasound to rule out DVT Status: Acute (9) PAD (peripheral artery disease): -arterial us on 07/2020 showed: Abnormal resting TBIs bilaterally, suggestive of moderate peripheral arterial disease. Moderate diffuse heterogeneous plaques in the superficial femoral arteries bilaterally -Patient is in so much pain I could not appropriately feel pulses -Has severe bilateral lower extremity pain, rest pain, -Has bilateral superficial ulcers -I am concerned for limb ischemia, ischemic rest pain, with nonhealing ulcers related Plan: -Doppler lower extremity daily -Start patient on heparin drip for lower limb ischemia -He is already on aspirin, Plavix, statin -Given creatinine I cannot do any imaging of the bilateral lower extremities with contrast -Consult cardiology in the morning for consideration of vascular intervention Status: Acute (10) Atrial fibrillation: -Not on anticoagulation?, Seems as if she had postoperative atrial fibrillation after CABG -Continue amiodarone Status: Acute (11) Hypothyroid: -Dr. Lombardi stopped liothyronine 5 mcg once daily -Reduce levothyroxine dose down to 88 mcg Status: Chronic Qualifiers: Hypothyroidism type: acquired Qualified Code(s): E03.9 - Hypothyroidism, unspecified (12) Leg swelling: -Hold metolazone and Bumex Status: Acute (13) Benign essential hypertension with target blood pressure below 140/90: Status: Acute (14) Type 2 diabetes mellitus: -Patient has type 2 diabetes in her chart -Denies a history of this -I cannot find a hemoglobin A1c -Order hemoglobin A1c -Monitor hemoglobin Status: Acute Attestations Medical Necessity Statement*: Patient requires hospitalization, inpatient, greater than 2 midnights, for bilateral lower extremity cellulitis, PAD, EDMUNDO, dehydration, viral gastroenteritis Coding Level of Care Code Acute [facility] Diagnoses Acute kidney injury superimposed on CKD N17.9; N18.9 Acute dehydration E86.0 Viral gastroenteritis A08.4 Abrasion of scalp S00.01XA Encounter type: initial encounter Contusion of face S00.83XA Encounter type: initial encounter Fall W19.XXXA Encounter type: initial encounter 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 I25.810 Associated angina: without angina Bilateral lower leg cellulitis L03.116; L03.115 PAD (peripheral artery disease) I73.9 Atrial fibrillation I48.91 Hypothyroid E03.9 Hypothyroidism type: acquired Leg swelling M79.89 Benign essential hypertension with target blood pressure below 140/90 I10 Type 2 diabetes mellitus E11.9
--- NOTE | 2020-08-09 23:04 | PC.NURSE ---
Bilateral pedal pulses found via doppler.
--- NOTE | 2020-08-09 23:54 | XR_ITS ---
WS: [id number] FEMUR LEFT TECHNIQUE: 2 views of the left femur CLINICAL INFORMATION: le pain COMPARISON: None. FINDINGS: Left femur is normal in appearance. No acute fractures. Osteopenia. Vascular calcification. Degenerat marques arthritis left hip. XR/XR femur LT min 2V* [id number] IMPRESSION: No acute femoral fractures
--- NOTE | 2020-08-09 23:54 | XR_ITS ---
WS: [id number] FEMUR RIGHT TECHNIQUE: 2 views of the right femur CLINICAL INFORMATION: le pain COMPARISON: None. FINDINGS: Right femur is normal in appearance. Normal anatomic alignment. No acute fractures. Mild osteopenia. Vascular calcification. XR/XR femur RT min 2V* [id number] IMPRESSION: No acute right femur findings
[2020-08-10] VITALS (7 sets, daily range): BP systolic 97–122; BP diastolic 54–68; PULSE 74–101; RESP 17–24; TEMP 36.4–37.8; O2SAT 91–95
[2020-08-10 00:27] LABS: Estmated Average Glucose 117; Hemoglobin A1C 5.7 % (4.0-6.0)
[2020-08-10 00:37] LABS: NT Pro B Type Natriuretic Pept 8497 pg/mL (0-125); Procalcitonin 1.49 ng/mL (0-0.5); Thyroid Stimulating Hormone 0.09 uIU/mL (0.27-4.20)
[2020-08-10 00:48] LABS: Creatine Phosphokinase 107 U/L (26-192)
[2020-08-10 01:11] LABS: C Reactive Protein 355.3 mg/L (0.0-4.9)
[2020-08-10 01:16] LABS: INR 1.08 (0.8-1.2); Partial Thromboplastin Time 26.1 SECONDS (23.9-36.7)
[2020-08-10] MEDS: heparin drip 25,000 UNIT/500 ML PREMIX 20 UNIT IV (01:27)
[2020-08-10] MEDS: heparin 5,000 unit/mL INJ 1 mL IV ×2 (01:27→15:58)
[2020-08-10] MEDS: cefTRIAXone 1,000 MG in sodium chloride 0.9% (plus) 50 ML 100 MG IV (01:40)
[2020-08-10] MEDS: sodium chloride 0.9% 1,000 ML 50 ML IV (01:40)
[2020-08-10] MEDS: gabapentin 100 mg Capsule PO ×3 (01:41→17:52)
[2020-08-10] MEDS: atorvastatin 40 mg Tablet 20 MG PO ×2 (01:41→19:59)
--- NOTE | 2020-08-10 01:41 | PC.PHAR ---
Pharmacokinetic dosing service Date: 08/10/20 Time: 014 Objective: Patient: Eliana Samuels Floor: 252-2 Age: 69 yo Serum creatinine: 3.2 mg/dL Height: 66.0 Inches Weight (kg): 71.668 Diagnosis: Relevant medical/social history: Cultures and sensitivities: Other labs: Assessment: IBW (kg): 59.30 Dosing wt(kg): 71.668 Estimated Creatinine clearance (ml/min): 15.1 CRCL method: Cockcroft and Gault using ibw(default). Drug selected: Vancomycin Loading dose (mg): 0 Vd (liters): 64.5 (factor used: 0.9 L/kg) John (hr-1): 0.017 Half life (hrs): 40.77 Recommended dose: 1250 mg Interval: 48 hrs Infusion time (hrs): 1.5 Predicted peak (mcg/mL): 34.3 Predicted trough (mcg/mL): 15.56 Total body weight is being used for vancomycin dosing. Renal function is stable [ ] /unstable [ ] Recommendations: Give Vancomycin 1250 mg q 48 hrs with an expected Cpeak of 34.3 mcg/ml and an expected Ctrough of 15.56 mcg/ml Renal dosing of other antibiotics (review renal dosing of other medications and list guidelines here): Thank you for the consult, will continue to follow. Signature: Ashleigh Monaco [facility]
[2020-08-10 01:47] LABS: Erythrocyte Sedimentation Rate 111 mm/hr (0-15)
[2020-08-10] MEDS: morphine 4 mg/mL SDV 1 mL 2 MG IVP ×3 (01:54→13:57)
[2020-08-10 02:32] LABS: Add Urine Microscopic? NO
[2020-08-10 02:40] LABS: SARS Covid-2 Antigen Negative (Negative)
[2020-08-10 03:10] LABS: Bilirubin Urine Neg (Negative); Blood Urine Neg (Negative); Glucose Urine UA Norm (Normal); Ketones Urine Negative (Negative); Leukocyte Esterase Urine Negative (Negative); Nitrate Urine Negative (Negative); Protein Urine Neg (Negative); Urine Appearance Clear (CLEAR); Urine Color Yellow (Yellow); Urobilinogen Urine Norm (Negative); pH Urine 5 (5-7)
[2020-08-10] MEDS: metroNIDAZOLE IV 500 MG/100 ML PREMIX 100 MG IV ×3 (04:15→19:59)
[2020-08-10 05:54] LABS: Basophils # 0.1 10^3/uL (0.0-0.1); Basophils % 0.4 %; Hematocrit 33.4 % (37.0-47.0); Hemoglobin 10.4 g/dL (11.5-15.3); Lymphocytes # 0.9 10^3/uL (0.8-4.8); Lymphocytes % 3.9 %; Mean Corpuscular HGB Conc 31.1 g/dL (30.0-36.0); Mean Corpuscular Hemoglobin 30.6 pg (28.0-34.0); Mean Corpuscular Volume 98.2 fL (81-99); Mean Platelet Volume 11.8 fL (7.4-10.4); Monocytes # 1.1 10^3/uL (0.2-0.9); Monocytes % 5.1 %; Neutrophils # 19.99 10^3/uL (1.8-7.7); Neutrophils % 89.7 %; Nucleated Red Blood Cells % 0 %; Platelet Count 300 10^3/cmm (130-400); Red Cell Distribution Width 14.9 % (12.1-15.1); White Blood Count 22.3 10^3/uL (4.0-10.0)
[2020-08-10 06:12] LABS: INR 1.13 (0.8-1.2)
[2020-08-10 06:19] LABS: Alanine Aminotransferase 13 U/L (0-33); Albumin Level 2.8 g/dL (3.5-5.2); Alkaline Phosphatase 107 IU/L (35-105); Anion Gap 18.7 (5-19); Aspartate Amino Transferase 29 U/L (0-32); Blood Urea Nitrogen 75 mg/dL (8-23); Calcium 9.3 mg/dL (8.5-10.5); Carbon Dioxide 27 mmol/L (22-29); Chloride 89 mmol/L (98-107); Globulin 4.4 g/dL (1.3-4.6); Glucose 110 mg/dL (65-115); Magnesium 1.6 mg/dL (1.7-2.3); Osmolality Calculated 297 mOsm/kg (285-295); Phosphorus 3.6 mg/dL (2.5-4.5); Sodium 132 mmol/L (136-145); Total Bilirubin 0.4 mg/dL (0.15-1.2); Total Protein 7.2 g/dL (6.6-8.7)
[2020-08-10 06:20] LABS: Potassium 2.7 mmol/L (3.5-5.1)
[2020-08-10 06:24] LABS: Chol HDL Ratio 2.07 mg/dL (0.0-4.40); Cholesterol 91 mg/dL (0-200); HDL Cholesterol 44 mg/dL (60-100); LDL Cholesterol Calculated 32 mg/dL (50-129); LDL HDL Ratio 0.73 RATIO (0.00-3.22); Triglycerides 76 mg/dL (0-150)
[2020-08-10] MEDS: magnesium sulfate premix 2 GM/50 ML PIGGYBACK IV (06:49)
[2020-08-10] MEDS: potassium chloride premix 40 MEQ/100 ML PREMIX 25 MEQ IV (06:49)
--- NOTE | 2020-08-10 07:00 | USCV_ITS ---
Eliana Samuels Age: 69 Gender: F : 1950 Exam Date: 08/10/2020 09:23 Ordering Phys: Lb Chamorro MD Technologist: Ponce Lomeli Exam Location: [facility] [place] Indication: EDEMA PROCEDURES: Venous duplex imaging was performed in bilateral lower extremities. The following venous structures were evaluated: common femoral vein, profunda vein, proximal portion of the greater saphenous vein, superficial femoral vein, and the popliteal vein. In addition, the posterior tibial and peroneal trunk were evaluated. Serial compression, augmentation maneuvers, and spectral Doppler flow evaluation were performed. FINDINGS: Normal 2-D Doppler and augmentation and compressibility throughout the lower extremity venous structures. Additional imaging through the proximal calf veins also reveals no thrombus. Limited evaluation of the greater saphenous vein is patent with no thrombus.. CONCLUSIONS No evidence of right lower extremity DVT. No evidence of left lower extremity DVT. Arvind Williamson MD (Electronically Signed) Final Date: 10 August 2020 10:55 S
--- NOTE | 2020-08-10 07:00 | USCV_ITS ---
Eliana Samuels Age: 69 Gender: F : 1950 Exam Date: 08/10/2020 09:44 Ordering Phys: Lb Chamorro MD Technologist: Sergei Stout Exam Location: [facility] [place] Indication: LIGHTHEADED BP: 126 / 72 HR: 100 Rhythm: Sinus Technical Quality: Adequate MEASUREMENTS (Male / Female) Normal Values 2D ECHO LV Diastolic Diameter PLAX 2.5 cm 4.2 - 5.9 / 3.9 - 5.3 cm LV Systolic Diameter PLAX 2.3 cm IVS Diastolic Thickness 0.7 cm 0.6 - 1.0 / 0.6 - 0.9 cm IVS Systolic Thickness 1.1 cm LVPW Diastolic Thickness 2.3 cm 0.6 - 1.0 / 0.6 - 0.9 cm LVPW Systolic Thickness 1.1 cm LVOT Diameter 2.2 cm LV Ejection Fraction 2D Teich 60.3 % LV Ejection Fraction MOD 2C 50.1 % LV Ejection Fraction 2C AL 50.1 % LA Diameter 3.7 cm LA Width 3.3 cm LA Height 4.5 cm RA Width 2.9 cm RA Height 4.7 cm Aorta at Sinotubular Diameter 1.1 cm M-MODE LV Diastolic Diameter MM 4.3 cm 4.2 - 5.9 / 3.9 - 5.3 cm LV Systolic Diameter MM 2.5 cm LV Ejection Fraction MM Teich 73.7 % IVS Diastolic Thickness MM 0.9 cm 0.6 - 1.0 / 0.6 - 0.9 cm IVS Systolic Thickness MM 1.2 cm LVPW Diastolic Thickness MM 1.1 cm 0.6 - 1.0 / 0.6 - 0.9 cm LVPW Systolic Thickness MM 1.0 cm RV Diastolic Diameter MM 1.1 cm Aortic Annulus Diameter 3.0 cm LA Ao Ratio MM 1.4 MV E Point Septal Separation 1.1 cm DOPPLER AV Peak Velocity 144.7 cm/s MV Area PHT 2.7 cm squared Mitral E to A Ratio 0.6 MV E' Velocity 41.5 cm/s Mitral E to MV E' Ratio 6.4 Mitral E to LV E' Lateral Ratio 5.4 Mitral E to LV E' Septal Ratio 8.0 TR Peak Velocity 248.7 cm/s TR Peak Gradient 24.7 mmHg TV Peak E Velocity 127.0 cm/s Right Atrial Pressure 3.0 mmHg Pulmonary Artery Systolic Pressu 27.7 mmHg PV Peak Velocity 152.0 cm/s FINDINGS Left Ventricle Normal left ventricular size and systolic function, EF 55 %. Grade I/IV diastolic dysfunction (abnormal relaxation filling pattern), normal to mildly elevated filling pressures. Mild left ventricular hypertrophy. Right Ventricle Normal right ventricular size and systolic function, RVSP 27.7 mmHg. Right Atrium Normal right atrial size. Left Atrium Mildly increased left atrial size. Mitral Valve Moderate mitral valve regurgitation. Moderate mitral annular calcification. Aortic Valve Thickened aortic valve. Tricuspid Valve Trace tricuspid valve regurgitation. Pulmonic Valve Pulmonic valve not well visualized. Pericardium Normal pericardium without effusion. Aorta Moderate dense plaques in the ascending aorta CONCLUSIONS Normal left ventricular size and systolic function, EF 55 %. Grade I/IV diastolic dysfunction (abnormal relaxation filling pattern), normal to mildly elevated filling pressures. Mild left ventricular hypertrophy. Moderate mitral valve regurgitation. Moderate mitral annular calcification. Mildly increased left atrial size. Thickened aortic valve. Moderate dense plaques in the ascending aorta. There is no pericardial effusion. There are no intracardiac masses. Technically difficult study because of the poor ultrasonic window. Dr Hoa Gill MD FAC (Electronically Signed) Final Date: 10 August 2020 20:16 S
--- NOTE | 2020-08-10 07:00 | USCV_ITS ---
Eliana Samuels Age: 69 Gender: F : 1950 Exam Date: 08/10/2020 09:06 Ordering Phys: Lb Chamorro MD Technologist: Ponce Lomeli Exam Location: [facility] [place] Indication: LIGHT HEADED Risk Factors: Previous Vascular Surgery: Right Brachial BP: / Left Brachial BP: / Right Left Velocity (cm/s) Spectral Plaque Velocity (cm/s) Spectral Plaque Syst/Diast Broadening Syst/Diast Broadening 122.40/12.10 Prox CCA 98.80 / 7.80 80.30/ 12.00 Mid CCA 82.10 / 13.30 101.70/17.90 Distal CCA 104.50/ 18.20 170.90/20.20 Prox ICA 88.10 / 21.10 192.60/17.10 Mid ICA 118.10/ 18.60 177.10/15.50 Distal ICA 101.30/ 14.90 249.30 ECA 144.50 2.40 ICA/CCA 1.44 Antegrade Vertebral Antegrade 55.20/ 5.30 cm/s 90.70/ 18.40 cm/s Tri Subclavian Tri 106.0 140.7 0 0 CONCLUSIONS Right ICA stenosis 50-69%. Moderate atheromatous plaque right carotid bulb/ICA. Left ICA stenosis <50%. Moderate atheromatous plaque left carotid bulb/ICA. Normal antegrade Doppler flow noted in the right vertebral artery. Normal antegrade Doppler flow noted in the left vertebral artery. Arvind Williamson MD (Electronically Signed) Final Date: 10 August 2020 10:59 S
--- NOTE | 2020-08-10 07:43 | PC.OT ---
OT Note: Patient's potassium noted to be 2.7 this morning. OT evaluation will be held at this time.
[2020-08-10 08:01] LABS: Partial Thromboplastin Time 58.9 SECONDS (23.9-36.7)
[2020-08-10] MEDS: aspirin 81 mg EC Tablet PO (10:27)
[2020-08-10] MEDS: amiodarone 200 mg Tablet PO (10:27)
[2020-08-10] MEDS: clopidogrel 75 mg Tablet PO (10:28)
[2020-08-10] MEDS: metoprolol tartrate 50 mg Tablet PO ×2 (10:28→17:52)
[2020-08-10] MEDS: levothyroxine 88 mcg Tablet PO (10:28)
[2020-08-10] MEDS: duloxetine 30 mg Capsule PO (10:28)
[2020-08-10] MEDS: pantoprazole DR 40 mg Tablet PO (10:28)
[2020-08-10] MEDS: potassium chloride premix 100 ML 25 MEQ IV (10:31)
--- NOTE | 2020-08-10 14:05 | P.PN_ITS ---
Subjective Subjective: Interval history: When I walk in the room she is crying out in pain, having blood drawn, right lower extremity dressing has just been undone to be changed as well. Complains of quite a bit of pain with changing the dressings at the wounds of both lower extremities. Says the pain has been going on for the past 4 months or so, and is particularly bad with changing the keith ssings. Denies significant lower extremity wounds prior to that. Says that her wounds do heal up, and then reappear in other locations. Vitals/I&O/Wt Last Vital Signs Temp 100.1 F H 08/10/20 08:00 Pulse 101 H 08/10/20 08:00 Resp 18 08/10/20 13:57 BP 122/67 08/10/20 08:00 Pulse Ox 92 08/10/20 08:00 08/09/20 08/10/20 08/10/20 22:59 06:59 14:59 Intake Total 100 / 100 340 / 340 Output Total 600 / 600 600 / 600 Balance -500 / -500 -260 / -260 Weight last 48 hrs Weight 71.668 kg Physical Exam Const: COMMON NORMALS: no acute distress and patient oriented x3 HENMT: COMMON NORMALS: oropharynx normal Neck/C-Spine: COMMON NORMALS: no JVD Resp: COMMON NORMALS: normal respiratory effort and clear to auscultation bilaterally AUSCULTATION: clear to auscultation bilaterally Cardio: COMMON NORMALS: no JVD, regular rhythm, S1 normal heart sound present, S2 normal heart sound present and No murmurs present (Cardio) RHYTHM: regular rhythm HEART SOUNDS: S1 normal heart sound present and S2 normal heart sound present GI: COMMON NORMALS: Normal to inspection, nondistended, normoactive bowel sounds present, Soft to palpation and non-tender PALPATION: Yes Soft to palpation Extremity: COMMON NORMALS: no joint enlargement and no pedal edema OTHER: Bilateral wounds. She is very tender with try to change the dressings which adhered to some of the wounds. Large shallow ulcerations on anterior lateral and posterior side on the right side, ranging in diameter up to 10 cm. Some sloughing on the surface. No undermining, no tunneling. Not much surrounding erythema. There is some perhaps minimal purulent drainage. Bilateral feet feel warm. Appear perfused, although I cannot palpate pulses. On the left side has some scarring which appears in multiple occasions below the knee, possibly from previously healed lesions, dry scaly skin. Much smaller ulceration posteriorly at the left calf about 5 cm in size, irregular borders, shallow ulceration. No crepitation. Neuro: COMMON NORMALS: patient oriented x3 and moves all extremities Skin: COMMON NORMALS: no rashes or lesions noted GENERAL SKIN EXAM: no rashes or lesions noted Data : 08/10/20 05:10 08/10/20 05:10 Micro: Microbiology 08/10/20 02:05 Gram Stain - Final Leg - #1 08/10/20 00:51 Blood Culture - Preliminary Blood SPECIMEN COLLECTED 08/10/20 00:45 Blood Culture - Preliminary Blood SPECIMEN COLLECTED A&P Assessment and plan (1) Bilateral lower leg cellulitis: Possible sepsis w leukocytosis 22.3, sinus tachycardia 101, low-grade fever 100.1F. Blood culture has been done. Wound culture. Continue antibiotics. There is minimal purulent drainage from the ulcerations. I do not see obvious abscess, however, we will obtain CT of right lower extremity to rule out any abscess. Surgery consultation for assessment for possibility of debridement. Attempted to call daughter for update but no answer. A1c looks ok. Suggestion of moderate peripheral renal disease on arterial duplex at the end of July. Venous duplex negative for DVT. Her wounds do not appear arterial. Looks more like chronic venous insufficiency, but not say that arterial insufficiency may not be contributing. At this time more involved assessment risks would outweigh the benefits given renal failure. Request assessment by bedside Doppler of pulses. Feet are warm/perfused. Has had MRSA growing in wound cultures in the past. Status: Acute (2) Acute kidney injury superimposed on CKD: -EDMUNDO on CKD Prescription with her primary provider she was considered nearing hemodialysis. Follows up with Dr. Lucero in office. Transfer to [facility] was considered and discussed with her primary care provider also discussed with her daughter, discussed also with patient as her group work program aide is over there, however, they at this time are unable to accept additional patients. Patient is agreeable to continue care here. Her renal function is looking somewhat better. Discussed with her we do have nephrology service available in case renal function was worsening or she was needing initiation of hemodialysis. Diarrhea has resolved. At this time we are holding Bumex, metolazone. For now we will hold off any additional IV hydration. -CT scan of the abdomen, no hydronephrosis, no nephrolithiasis, UA negative for UTI Status: Acute (3) Acute dehydration: Hold additional IV fluids for now. The area has resolved. Monitor volume status, REAGAN. Avoid fluid overload. Status: Acute (4) Viral gastroenteritis: This appears to have improved. Stool studies were ordered but could not be collected as diarrhea is resolved so far. Ordered COVID 19 PCR. Status: Acute (5) Abrasion of scalp: Appears to be healing well. Monitor. Status: Acute Qualifiers: Encounter type: initial encounter Qualified Code(s): S00.01XA - Abrasion of scalp, initial encounter (6) Contusion of face: Status: Acute Qualifiers: Encounter type: initial encounter Qualified Code(s): S00.83XA - Contusion of other part of head, initial encounter (7) Fall: -Complaints of lightheadedness and dizziness -This fall is a component of mechanical and nonmechanical features -Has history of TIA, is on aspirin, Plavix, statin Carotid Doppler with some right-sided stenosis 50-69%, moderate atheromatous plaque right carotid bulb/ICA, left ICA less than 50% stenosis, moderate atheromatous plaque left carotid bulb/ICA, Cardiac echocardiogram pending. 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 Moderate diffuse heterogeneous plaques in the superficial femoral arteries bilaterally Pulses not felt, however, feet feel warm/perfused. Assess bedside Dopplers. For now empirically has been started on heparin drip due to concern for peripheral arterial disease, nonhealing ulcers. Rest pain. However, also with poor renal function. Creatinine does appear to be improving. Does have significant chronic kidney disease nearing hemodialysis. Additional evaluation may be difficult, given chronicity of the symptoms (over the last 4 months) is not likely to be acute ischemia. Follow-up bedside Dopplers. Careful c onsideration made to be given to revascularization given risk of renal injury. Continue ASA, plavix. Appreciate cards assessment. Status: Acute (10) Atrial fibrillation: -Not on anticoagulation?, Seems as if she had postoperative atrial fibrillation after CABG Fall prior to admission.-Continue amiodarone Reassessment she is feeling better. May have difficult time anticoagulation if persistent fall risk. Does stray she usually able to walk. Status: Acute (11) Hypothyroid: -Dr. Lombardi stopped liothyronine 5 mcg once daily -levothyroxine dose was reduced down to 88 mcg Status: Chronic Qualifiers: Hypothyroidism type: acquired Qualified Code(s): E03.9 - Hy pothyroidism, unspecified (12) Leg swelling: -Hold metolazone and Bumex Status: Acute (13) Benign essential hypertension with target blood pressure below 140/90: Status: Acute (14) Type 2 diabetes mellitus: -Patient has type 2 diabetes in her chart -Denies a history of this -hemoglobin A1c 5.7 Monitor glucose Status: Acute Attestations Medical Necessity Statement*: Continue admission for assessment management of acute kidney injury on CKD, lower extremity wounds with infection, peripheral arterial disease, assessment for coronavirus, gastroenteritis, after a fall at home. Coding Level of Care Code Acute [facility] for [facility] Fwd Diagnoses Bilateral lower leg cellulitis L03.116; L03.115 Acute kidney injury superimposed on CKD N17.9; N18.9 Acute dehydration E86.0 Viral gastroenteritis A08.4 Abrasion of scalp S00.01XA Encounter type: initial encounter Contusion of face S00.83XA Encounter type: initial encounter Fall W19.XXXA Encounter type: initial encounter 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
[2020-08-10 14:32] LABS: Partial Thromboplastin Time 48.9 SECONDS (23.9-36.7)
[2020-08-10 21:01] LABS: Glucose Point of Care 136 mg/dL (70-110)
[2020-08-10 22:51] LABS: Partial Thromboplastin Time 94.4 SECONDS (23.9-36.7)
[2020-08-11] VITALS (11 sets, daily range): BP systolic 100–102; BP diastolic 48–62; PULSE 70–78; RESP 16–20; TEMP 36.8–37.5; O2SAT 91–93
[2020-08-11] MEDS: gabapentin 100 mg Capsule PO ×3 (00:01→17:01)
[2020-08-11] MEDS: cefTRIAXone 1,000 MG in sodium chloride 0.9% (plus) 50 ML 100 MG IV (00:01)
[2020-08-11] MEDS: heparin drip 25,000 UNIT/500 ML PREMIX 18 UNIT IV (03:03)
[2020-08-11] MEDS: morphine 4 mg/mL SDV 1 mL 2 MG IVP ×3 (03:30→17:04)
[2020-08-11 05:21] LABS: Basophils # 0.1 10^3/uL (0.0-0.1); Basophils % 0.5 %; Eosinophils # 0.1 10^3/uL (0.0-0.8); Eosinophils % 0.3 %; Hematocrit 28.3 % (37.0-47.0); Hemoglobin 8.8 g/dL (11.5-15.3); Lymphocytes # 1.3 10^3/uL (0.8-4.8); Lymphocytes % 6.6 %; Mean Corpuscular HGB Conc 31.1 g/dL (30.0-36.0); Mean Corpuscular Volume 99.6 fL (81-99); Mean Platelet Volume 11.8 fL (7.4-10.4); Monocytes % 5.1 %; Neutrophils # 16.48 10^3/uL (1.8-7.7); Neutrophils % 86.2 %; Nucleated Red Blood Cells % 0 %; Platelet Count 293 10^3/cmm (130-400); Red Blood Count 2.84 10^6/uL (4.1-5.3); White Blood Count 19.1 10^3/uL (4.0-10.0)
[2020-08-11 05:57] LABS: Alanine Aminotransferase 23 U/L (0-33); Albumin Level 2.6 g/dL (3.5-5.2); Alkaline Phosphatase 190 IU/L (35-105); Anion Gap 19.1 (5-19); Aspartate Amino Transferase 68 U/L (0-32); Blood Urea Nitrogen 68 mg/dL (8-23); Calcium 9.4 mg/dL (8.5-10.5); Carbon Dioxide 26 mmol/L (22-29); Chloride 94 mmol/L (98-107); Glucose 111 mg/dL (65-115); Osmolality Calculated 302 mOsm/kg (285-295); Phosphorus 3.7 mg/dL (2.5-4.5); Potassium 3.1 mmol/L (3.5-5.1); Sodium 136 mmol/L (136-145); Total Bilirubin 0.3 mg/dL (0.15-1.2); Total Protein 6.6 g/dL (6.6-8.7)
[2020-08-11] MEDS: metroNIDAZOLE IV 500 MG/100 ML PREMIX 100 MG IV ×3 (06:00→19:44)
[2020-08-11 06:41] LABS: Glucose Point of Care 175 mg/dL (70-110)
[2020-08-11 07:08] LABS: Partial Thromboplastin Time 57.9 SECONDS (23.9-36.7)
--- NOTE | 2020-08-11 08:26 | P.CONIM_ITS ---
Providers/Reason For Consult Consulting Physican/Specialty*: Marquise Talavera Reason for Consult*: Bilateral lower extremity wound Attending Physician: Marquise Talavera Primary Care Provider: Melina Weeks MD History of Present Illness History of Present Illness Eliana Samuels is a 69 year old female who presented to the ER with complaints of dizziness and lightheadedness. Patient states that she has had these wounds on her lower legs for 4 months which started initially on the left but is now on the right as well. She complains of severe pain in the right leg. She has multiple comorbidities and has bilateral lower extremity edema. No prior surgical debridements in the OR except for bedside debridement in the wound clinic Review of Systems General: Reports: 10 or more systems reviewed and unremarkable except in HPI and below Meds/Allergies Home Medications and Allergies Home Medications Medication Instructions Recorded Confirmed Last Taken Type aspirin 81 mg PO DAILY #30 tab 12/02/19 08/09/20 08/08/20 Rx atorvastatin 20 mg PO BEDTIME #30 tab 12/02/19 08/09/20 08/08/20 Rx clopidogrel 75 mg PO DAILY #30 tab 12/02/19 08/09/20 08/08/20 Rx liothyronine 5 mcg PO DAILY #30 tab 12/02/19 08/09/20 08/08/20 Rx meclizine 25 mg PO TID PRN #10 tab 12/02/19 08/09/20 08/08/20 Rx metoprolol tartrate 50 mg PO BID #60 tab 12/02/19 08/09/20 08/08/20 Rx pantoprazole 40 mg PO DAILY #30 tab 12/02/19 08/09/20 08/08/20 Rx amiodarone 200 mg tablet 200 mg PO DAILY 05/11/20 08/09/20 08/08/20 History coenzyme Q10 [CoQ-10] 100 mg PO PRN 06/12/20 08/09/20 06/11/20 History mv,Ca,min-folic acid-vit K1 1 tab PO DAILY 06/12/20 08/09/20 08/08/20 History [One-A-Day Women's 50 Plus] potassium chloride 20 mEq 20 meq PO BID #60 tab 07/07/20 08/09/20 08/08/20 Rx tablet,extended release torsemide 100 mg tablet 100 mg PO DAILY #90 tab 07/16/20 08/09/20 Unknown Rx bumetanide 2 mg PO BID 08/09/20 08/09/20 08/08/20 History duloxetine [Cymbalta] 30 mg PO DAILY 08/09/20 08/09/20 Unknown History gabapentin 100 mg PO Q8H 08/09/20 08/09/20 Unknown History hydrocodone-acetaminophen 1 tab PO Q8H PRN 08/09/20 08/09/20 08/09/20 History levothyroxine 100 mcg PO DAILY 08/09/20 08/09/20 Unknown History lidocaine HCl See Rx Instructions .ROUTE .COMPLEX 08/09/20 08/09/20 Unknown History metolazone 5 mg PO DAILY 08/09/20 08/09/20 Unknown History nystatin See Rx Instructions .ROUTE .COMPLEX 08/09/20 08/09/20 Unknown History pentoxifylline 400 mg PO TID 08/09/20 08/09/20 Unknown History Allergies Allergy/AdvReac Type Severity Reaction Status Date / Time No Known Allergies Allergy Verified 08/09/20 16:48 Current Medications Current Medications Generic Name Dose Route Start Last Admin Trade Name Freq PRN Reason Stop Dose Admin Amiodarone HCl 200 mg 08/10/20 09:00 08/10/20 10:27 Cordarone PO 200 mg DAILY TOSHIA Administration Aspirin 81 mg 08/10/20 09:00 08/10/20 10:27 Aspirin Ec PO 81 mg DAILY TOSHIA Administration Atorvastatin Calcium 20 mg 08/09/20 23:54 08/10/20 19:59 Lipitor PO 20 mg BEDTIME TOSHIA Administration Clopidogrel Bisulfate 75 mg 08/10/20 09:00 08/10/20 10:28 Plavix PO 75 mg DAILY TOSHIA Administration Duloxetine HCl 30 mg 08/10/20 09:00 08/10/20 10:28 Cymbalta PO 30 mg DAILY TOSHIA Administration Gabapentin 100 mg 08/10/20 01:00 08/11/20 00:01 Neurontin PO 100 mg Q8H TOSHIA Administration Heparin Sodium (Beef Lung) 0 unit 08/09/20 23:54 08/10/20 15:58 Heparin IV 1,400 unit PRN PRN Administration Heparin weight-base protocol Protocol Ceftriaxone Sodium 1,000 mg/ 50 mls @ 100 mls/hr 10/06/20 00:30 08/11/20 00:01 Sodium Chloride IV 100 mls/hr Q24H TOSHIA Administration Protocol Metronidazole 500 mg in 100 mls @ 100 mls/hr 08/10/20 01:00 08/11/20 07:00 Flagyl Iv IV Infused Q8H TOSHIA Infusion Protocol Sodium Chloride 1,000 mls @ 50 mls/hr 08/09/20 23:54 08/10/20 01:40 Sodium Chloride 0.9% IV 50 mls/hr .Q20H TOHSIA Administration Heparin Sodium/Sodium Chloride 25,000 unit in 500 mls @ 0 mls/hr 08/09/20 23:54 08/11/20 03:03 Heparin Drip IV 12.56 unit/kg/hr .Q0M TOSHIA 18 mls/hr Administration Protocol Per Protocol Levothyroxine Sodium 88 mcg 08/10/20 09:00 08/10/20 10:28 Synthroid PO 88 mcg DAILY TOSHIA Administration Lidocaine HCl 1 applic 08/10/20 14:30 08/10/20 16:00 Lidocaine 2% Jelly TOPICAL 1 applic PRN PRN Administration PAIN Metoprolol Tartrate 50 mg 08/10/20 09:00 08/10/20 17:52 Lopressor PO 50 mg BID TOSHIA Administration Morphine Sulfate 2 mg 08/09/20 23:54 08/11/20 03:30 Morphine IVP 2 mg Q4H PRN Administration SEVERE PAIN Pantoprazole Sodium 40 mg 08/10/20 09:00 08/10/20 10:28 Protonix PO 40 mg DAILY TOSHIA Administration PFSH Acute PFSH: Medical History Acute on chronic diastolic (congestive) heart failure Anemia Benign essential hematuria Benign essential hypertension with target blood pressure below 140/90 CAD (coronary artery disease) Chronic kidney disease 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 Dyslipidemia Leg swelling NSTEMI (non-ST elevated myocardial infarction) Postoperative atrial fibrillation SOB (shortness of breath) Sternal wound dehiscence Tubal ligation evaluation Surgical History H/O hysterectomy for benign disease Status post aorto-coronary artery bypass graft Family History Brother CAD (coronary artery disease), Onset Age: 59 of myocardial infarction at age 59 Father CAD (coronary artery disease), Onset Age: 55 Had open heart surgery x3 Grandfather CAD (coronary artery disease), Onset Age: 55 Also of myocardial infarction in the late 50s Social History Smoking and tobacco status: former smoker Vitals/I&O/Wt Last Vital Signs Temp 98.3 F 08/11/20 07:26 Pulse 77 08/11/20 07:26 Resp 16 08/11/20 07:26 BP 100/55 08/11/20 07:26 Pulse Ox 93 08/11/20 07:26 08/10/20 08/11/20 08/11/20 22:59 06:59 14:59 Intake Total 220 / 1260 500 / 1260 100 / 100 Balance 220 / 660 500 / 660 100 / 100 Weight last 48 hrs Weight 158 lb Physical Exam Narrative: EXAM NARRATIVE: HEENT: Normocephalic, abrasions on the face Eye: Sclera /conjunctiva normal Neurological: Oriented to place person and time Skin: Intact, multiple small wounds on the left leg with overlying scab, no significant cellulitis though she has pedal edema Right le x 4 cm wound on the lateral aspect, pedal edema, no significant cellulitis, multiple small wounds with overlying scab Data Micro: Micro: Microbiology 08/10/20 00:51 Blood Culture - Pr eliminary Blood NEGATIVE TO SAURAV E 08/10/20 00:45 Blood Culture - Pr eliminary Blood NEGATIVE TO SAURAV E 08/10/20 02:05 Gram Stain - Final Leg - #1 A&P Assessment and plan (1) Leg wound, left: 69-year-old female with multiple comorbidities and bilateral pedal edema who has multiple small wounds on the left leg. This can be managed with daily Santyl dressings. Status: Acute (2) Leg wound, right: Patient has a much larger wound on the right leg with necrotic tissue mainly skin and subcutaneous which would benefit from debridement. Patient is currently pending COVID-19 testing We will plan for debridement of the right foot under MAC tomorrow Status: Acute Coding Level of Care Code Acute [facility] Fwd Diagnoses Leg wound, left S81.802A Leg wound, right S81.801A
[2020-08-11] MEDS: aspirin 81 mg EC Tablet PO (08:33)
[2020-08-11] MEDS: potassium chloride ER 10 mEq Tablet 20 MEQ PO (08:33)
[2020-08-11] MEDS: levothyroxine 88 mcg Tablet PO (08:34)
[2020-08-11] MEDS: pantoprazole DR 40 mg Tablet PO (08:34)
[2020-08-11] MEDS: clopidogrel 75 mg Tablet PO (08:34)
[2020-08-11] MEDS: metoprolol tartrate 50 mg Tablet PO ×2 (08:34→17:01)
[2020-08-11] MEDS: duloxetine 30 mg Capsule PO (08:34)
[2020-08-11] MEDS: amiodarone 200 mg Tablet PO (08:34)
--- NOTE | 2020-08-11 08:55 | PC.OT ---
OT Note: RN requested hold at this time. RN will consult with physician regarding low Hgb of 7.7. RN also reported patient had just finished LE dressing and patient is currently in a lot of pain.
[2020-08-11] MEDS: collagenase oint 30 gm 1 APPLIC TOPICAL (10:34)
[2020-08-11 11:53] LABS: Glucose Point of Care 173 mg/dL (70-110)
--- NOTE | 2020-08-11 12:50 | XR_ITS ---
WS: [id number] XR hip RT 2-3V wo/w pel* [id number] REASON FOR EXAM: additional views due to persistent pain after fall FINDINGS: Small marginal osteophyte at the superior margin of the femoral head and neck junction. No fracture identified. XR/XR hip RT 2-3V wo/w pel* [id number] IMPRESSION: No acute abnormality identified.
--- NOTE | 2020-08-11 12:56 | P.PN_ITS ---
Subjective Subjective: Interval history: She is doing little bit better. Has been having some pain in the right hip, especially when was being examined by the surgeon and having her leg elevated. Otherwise she is doing all right. Is regaining some of her strength. Vitals/I&O/Wt Last Vital Signs Temp 98.2 F 08/11/20 11:19 Pulse 70 08/11/20 11:19 Resp 18 08/11/20 11:19 BP 101/61 08/11/20 11:19 Pulse Ox 93 08/11/20 11:19 08/10/20 08/11/20 08/11/20 22:59 06:59 14:59 Intake Total 220 / 660 550 / 1210 340 / 340 Balance 220 / 60 550 / 610 340 / 340 Weight last 48 hrs Weight 71.668 kg Physical Exam Const: COMMON NORMALS: no acute distress and patient oriented x3 HENMT: COMMON NORMALS: oropharynx normal Neck/C-Spine: COMMON NORMALS: no JVD Resp: COMMON NORMALS: normal respiratory effort and clear to auscultation bilaterally AUSCULTATION: clear to auscultation bilaterally Cardio: COMMON NORMALS: no JVD, regular rhythm, S1 normal heart sound present, S2 normal heart sound present and No murmurs present (Cardio) RHYTHM: regular rhythm HEART SOUNDS: S1 normal heart sound present and S2 normal heart sound present GI: COMMON NORMALS: Normal to inspection, nondistended, normoactive bowel sounds present, Soft to palpation and non-tender PALPATION: Yes Soft to palpation Extremity: COMMON NORMALS: no joint enlargement and no pedal edema OTHER: Right hip with tiny bruise about 1.5 cm anterolaterally. Otherwise no erythema, no swelling that I can see, no tenderness on palpation. Reporting some pain with leg elevation. Bilateral wounds. She is very tender with try to change the dressings which adhered to some of the wounds. Large shallow ulcerations on anterior lateral and posterior side on the right side, ranging in diameter up to 10 cm. Some sloughing on the surface. No undermining, no tunneling. Not much surrounding erythema. There is some perhaps minimal purulent drainage. Bilateral feet feel warm. Appear perfused, although I cannot palpate pulses. On the left side has some scarring which appears in multiple occasions below the knee, possibly from previously healed lesions, dry scaly skin. Much smaller ulceration posteriorly at the left calf about 5 cm in size, irregular borders, shallow ulceration. No crepitation. Neuro: COMMON NORMALS: patient oriented x3 and moves all extremities Skin: COMMON NORMALS: no rashes or lesions noted GENERAL SKIN EXAM: no rashes or lesions noted Data : 08/11/20 04:30 08/11/20 04:30 Micro: Microbiology 08/10/20 00:51 Blood Culture - Preliminary Blood NEGATIVE TO DATE 08/10/20 00:45 Blood Culture - Preliminary Blood NEGATIVE TO DATE 08/10/20 02:05 Gram Stain - Final Leg - #1 A&P Assessment and plan (1) Bilateral lower leg cellulitis: Sepsis appears to be improving. Fever resolved. Tachycardia resolved. Leukocytosis slightly better today down to 19.1. She is feeling slightly better. Blood culture has been done. Wound culture. Continue antibiotics. Appreciate surgery assessment for debridement. We discussed with cardiology who reviewed her images including duplex ultrasound and prior CTA done with aorta runoff, for now continue medical treatment, and consider additional outpatient assessment for intervention. There is minimal purulent drainage from the ulcerations. I do not see obvious abscess, however, we will obtain CT of right lower extremity to rule out any abscess. Surgery consultation for assessment for possibility of debridement. Updated daughter on her condition, discussed assessment and current plan. Daughter is in agreement. A1c looks ok. Suggestion of moderate peripheral renal disease on arterial duplex at the end of July. Venous duplex negative for DVT. Her wounds do not appear arterial. Looks more like chronic venous insufficiency, but not say that arterial insufficiency may not be contributing. At this time more involved assessment risks would outweigh the benefits given renal failure. Request assessment by bedside Doppler of pulses. Dopplerable pulses. Feet are warm/perfused. Has had MRSA growing in wound cultures in the past. Status: Acute (2) Acute kidney injury superimposed on CKD: -EDMUNDO on CKD Creatinine is little bit better today down to 2.1. Discussed with her daughter. Continue to monitor renal function. Follow-up with nephrology after discharge. Prescription with her primary provider she was considered nearing hemodialysis. Follows up with Dr. Lucero in office. Diarrhea has resolved. At this time we are holding Bumex, metolazone. For now we will hold off any additional IV hydration. -CT scan of the abdomen, no hydronephrosis, no nephrolithiasis, UA negative for UTI Status: Acute (3) Acute dehydration: Hold additional IV fluids for now. The area has resolved. Monitor volume status, REAGAN. Avoid fluid overload. Status: Acute (4) Viral gastroenteritis: This appears to have improved. Stool studies were ordered but could not be collected as diarrhea is resolved so far. Pending COVID 19 PCR. Status: Acute (5) Abrasion of scalp: Appears to be healing well. Monitor. Status: Acute Qualifiers: Encounter type: initial encounter Qualified Code(s): S00.01XA - Abrasion of scalp, initial encounter (6) Contusion of face: Status: Acute Qualifiers: Encounter type: initial encounter Qualified Code(s): S00.83XA - Contusion of other part of head, initial encounter (7) Fall: Complains of persistent pain in the right hip. Appears this is triggered with leg elevation while being examined for her wounds this morning by surgery. Advancing superficial erythema, swelling, tenderness on palpation. She had a femur x-ray earlier which did not reveal any obvious fractures. Will obtain additional views with dedicated femoral x-ray. She is feeling little bit stronger today. Continue treatment of underlying infection. Sepsis resolving. -This fall is a component of mechanical and nonmechanical features -Has history of TIA, is on aspirin, Plavix, statin Carotid Doppler with some right-sided stenosis 50-69%, moderate atheromatous plaque right carotid bulb/ICA, left ICA less than 50% stenosis, moderate atheromatous plaque left carotid bulb/ICA, Cardiac echocardiogram with normal ejection fraction, grade 1 diastolic dysfunction. Moderate mitral valve regurgitation. Discussed with her daughter. Today she declined working with PT. Daughter will encourage her to cooperate. Yesterday required assistance to get to the edge of the bed. Daughter is concerned whether she will be able to handle things at home if her mother does not become stronger. Status: Acute Qualifiers: Encounter type: initial encounter Qualified Code(s): W19.XXXA - Unspecified fall, initial encounter (8) 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: Status: Acute Qualifiers: Associated angina: without angina Qualified Code(s): I25.810 - Atherosclerosis of coronary artery bypass graft(s) without angina pectoris (9) PAD (peripheral artery disease): Dopplerable pulses. Discussed with interventional cardiology who reviewed her prior imaging doing a rterial duplex, MODESTA, and past CT a aorta with runoff. -arterial us on 07/2020 showed: Abnormal resting TBIs bilaterally, suggestive of moderate peripheral arterial disease. Moderate diffuse heterogeneous plaques in the superficial femoral arteries bilaterally For now has been empirically on heparin drip due to concern for peripheral arterial disease, nonhealing ulcers. There was concern for wrist pain, although is not having any today. However, also with poor renal function for additional evaluation or intervention. As discussed with cardiology at this time continue medical therapy, follow-up after acute episode of illness for cautious consideration of additional intervention. Continue ASA, plavix. Status: Acute (10) Atrial fibrillation: -Not on anticoagulation?, Seems as if she had postoperative atrial fibrillation after CABG Fall prior to admission.-Continue amiodarone May have difficult time anticoagulation if persistent fall risk. Status: Acute (11) Hypothyroid: -Dr. Lombardi stopped liothyronine 5 mcg once daily -levothyroxine dose was reduced down to 88 mcg Status: Chronic Qualifiers: Hypothyroidism type: acquired Qualified Code(s): E03.9 - Hypothyroidism, unspecified (12) Leg swelling: -Hold metolazone and Bumex Status: Acute (13) Benign essential hypertension with target blood pressure below 140/90: Status: Acute (14) Type 2 diabetes mellitus: -Patient has type 2 diabetes in her chart -Denies a history of this -hemoglobin A1c 5.7 Monitor glucose Status: Acute Attestations Medical Necessity Statement*: Continue admission for assessment management of improving sepsis, lower extremity wound infection, in the setting of renal failu re, generalized weakness with deconditioning. Coding Level of Care Code Acute Air Traffic Control Equipment Repairer for Chg Fwd Exam Comprehensive Diagnoses Bilateral lower leg cellulitis L03.116; L03.115 Acute kidney injury superimposed on CKD N17.9; N18.9 Acute dehydration E86.0 Viral gastroenteritis A08.4 Abrasion of scalp S00.01XA Encounter type: initial encounter Contusion of face S00.83XA Encounter type: initial encounter Fall W19.XXXA Encounter type: initial encounter 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
[2020-08-11 14:24] LABS: Partial Thromboplastin Time 71.7 SECONDS (23.9-36.7)
[2020-08-11 17:28] LABS: Glucose Point of Care 138 mg/dL (70-110)
--- NOTE | 2020-08-11 17:56 | PC.NURSE ---
pt up to chair, bed changed.
[2020-08-11 20:58] LABS: Coronavirus Lab Test PTC Negative
[2020-08-11 21:17] LABS: Glucose Point of Care 163 mg/dL (70-110)
[2020-08-11] MEDS: atorvastatin 40 mg Tablet 20 MG PO (21:55)
[2020-08-11 22:15] LABS: Partial Thromboplastin Time 27.6 SECONDS (23.9-36.7)
[2020-08-11] MEDS: heparin 5,000 unit/mL INJ 1 mL IV (22:36)
[2020-08-12] VITALS (19 sets, daily range): BP systolic 100–144; BP diastolic 59–89; PULSE 68–74; RESP 16–20; TEMP 36.2–37.1; O2SAT 90–100
--- NOTE | 2020-08-12 | CTR_ITS ---
PROCEDURE INFORMATION: Exam: CT Right Lower Extremity Without Contrast; Lower Leg Exam date and time: 08/12/2020 1:17 AM Age: 69 years old Clinical indication: Other: MRSA lower leg, nonhealing wounds; Additional info: Non-healing wounds TECHNIQUE: Imaging protocol: CT of the Right lower extremity without contrast was performed. Exam focused on the lower leg. Radiation optimization: All CT scans at this facility use at least one of these dose optimization techniques: automated exposure control; mA and/or kV adjustment per patient size (includes targeted exams where dose is matched to clinical indication); or iterative reconstruction. COMPARISON: CT angio abd aorta runof [id number] 11/16/2019 8:53 PM RADIATION DOSE METRICS: Total DLP (mGy-cm): 1117.5 FINDINGS: Bones/joints: Trace right knee effusion. There is marked medial compartment degenerative disease of the right knee. The ankle is unremarkable. There is no fracture or bone erosion. Soft tissues: Diffuse subcutaneous edema in the posterolateral right calf. No soft tissue gas. No fluid collection. Vasculature: There is extensive vascular calcification in the lower legs bilaterally. CT/CT lower leg RT wo con* [id number] IMPRESSION: Cellulitis in the right calf. No sign of necrotizing infection. No abscess. Radiation Dose CTDIVOL = (mGy): DLP = 1117.5 (mGy-cm)
[2020-08-12] MEDS: gabapentin 100 mg Capsule PO ×2 (00:11→08:32)
[2020-08-12] MEDS: cefTRIAXone 1,000 MG in sodium chloride 0.9% (plus) 50 ML 100 MG IV (00:11)
[2020-08-12] MEDS: morphine 4 mg/mL SDV 1 mL 2 MG IVP ×4 (02:43→22:05)
[2020-08-12] MEDS: metroNIDAZOLE IV 500 MG/100 ML PREMIX 100 MG IV ×3 (04:04→22:43)
[2020-08-12 05:45] LABS: Basophils # 0.1 10^3/uL (0.0-0.1); Basophils % 0.4 %; Eosinophils # 0.1 10^3/uL (0.0-0.8); Eosinophils % 1.1 %; Hemoglobin 8.1 g/dL (11.5-15.3); Lymphocytes # 0.9 10^3/uL (0.8-4.8); Lymphocytes % 7.1 %; Mean Corpuscular HGB Conc 31.2 g/dL (30.0-36.0); Mean Corpuscular Hemoglobin 30.9 pg (28.0-34.0); Mean Corpuscular Volume 99.2 fL (81-99); Mean Platelet Volume 12.2 fL (7.4-10.4); Monocytes # 0.8 10^3/uL (0.2-0.9); Neutrophils # 10.88 10^3/uL (1.8-7.7); Neutrophils % 84.3 %; Nucleated Red Blood Cells % 0 %; Platelet Count 289 10^3/cmm (130-400); Red Blood Count 2.62 10^6/uL (4.1-5.3); Red Cell Distribution Width 14.6 % (12.1-15.1); White Blood Count 12.9 10^3/uL (4.0-10.0)
[2020-08-12] MEDS: heparin drip 25,000 UNIT/500 ML PREMIX 22 UNIT IV (06:01)
[2020-08-12 06:33] LABS: Glucose Point of Care 122 mg/dL (70-110)
[2020-08-12 06:37] LABS: Alanine Aminotransferase 23 U/L (0-33); Albumin Level 2.1 g/dL (3.5-5.2); Alkaline Phosphatase 162 IU/L (35-105); Anion Gap 17.5 (5-19); Aspartate Amino Transferase 50 U/L (0-32); Blood Urea Nitrogen 63 mg/dL (8-23); Calcium 9.1 mg/dL (8.5-10.5); Carbon Dioxide 27 mmol/L (22-29); Chloride 95 mmol/L (98-107); Globulin 3.9 g/dL (1.3-4.6); Glucose 112 mg/dL (65-115); Magnesium 1.7 mg/dL (1.7-2.3); Osmolality Calculated 303 mOsm/kg (285-295); Phosphorus 3.2 mg/dL (2.5-4.5); Sodium 137 mmol/L (136-145); Total Bilirubin 0.2 mg/dL (0.15-1.2)
[2020-08-12 06:44] LABS: Potassium 2.5 mmol/L (3.5-5.1)
--- NOTE | 2020-08-12 07:15 | PC.OT ---
OT note: From chart review pt's potassium is 2.5 today. Will hold at this time.
[2020-08-12] MEDS: potassium chloride premix 100 ML 25 MEQ IV ×2 (07:41→11:39)
[2020-08-12] MEDS: collagenase oint 30 gm 1 APPLIC TOPICAL (08:31)
[2020-08-12] MEDS: metoprolol tartrate 50 mg Tablet PO ×2 (08:32→17:51)
[2020-08-12] MEDS: duloxetine 30 mg Capsule PO (08:32)
[2020-08-12] MEDS: amiodarone 200 mg Tablet PO (08:32)
[2020-08-12] MEDS: pantoprazole DR 40 mg Tablet PO (08:32)
[2020-08-12] MEDS: levothyroxine 88 mcg Tablet PO (08:32)
--- NOTE | 2020-08-12 10:35 | PC.SOCIAL ---
Pg 2 IMM Explained to pt Pg 2 IMM. No questions voiced. Provided pt a copy. Signed, dated, & timed a copy & placed in chart.
[2020-08-12 11:58] LABS: Glucose Point of Care 119 mg/dL (70-110)
[2020-08-12 13:17] LABS: Potassium 3.2 mmol/L (3.5-5.1)
--- NOTE | 2020-08-12 14:55 | ANES.PREANE2 ---
Pre-Anesthetic Assessment Pre-Anesthetic Assessment: Height/Weight: Height 1.68 m Weight 71.668 kg Temp Pulse Resp BP Pulse Ox 98.4 F 73 16 116/63 91 08/12/20 12:00 08/12/20 12:00 08/12/20 12:00 08/12/20 12:00 08/12/20 11:38 Preop Diagnosis: Status post CABG with soft tissue sternal wound dehiscence Proposed Procedure: Operation Date: 08/12/20 08:40 Proposed Procedures p Debridement(Right) - Edin Burnett MD Was Beta Josseline taken within 24 hours: N/A Social: Social History: No alcohol and No tobacco Exam: Pre-Anes Outpt Exam: alert, oriented x 3, clear to auscultation bilaterally and regular rate & rhythm Airway: Cervical ROM: WNL MP: 2 Dentition: Other (missing (poor dentition)) CV/HEM: CV/HEM: Afib, Anemia, CAD, CHF, HTN and AL : : Chronic renal Insufficiency Metabolic: Metabolic: DM and Thyroid Anesthetic Plan: ASA status: 4 Anesthesia: MAC Risk of > 500 ml blood loss (7ml/kg in children): No Meds/Allergies Current Medications: Current Medications Generic Name Dose Route Start Last Admin Trade Name Freq PRN Reason Stop Dose Admin Amiodarone HCl 200 mg 08/10/20 09:00 08/12/20 08:32 Cordarone PO 200 mg DAILY TOSHIA Administration Aspirin 81 mg 08/10/20 09:00 08/12/20 08:30 Aspirin Ec PO Not Given DAILY TOSHIA Atorvastatin Calci um 20 mg 08/09/20 23:54 08/11/20 21:55 Lipitor PO 20 mg BEDTIME TOSHIA Administration Clopidogrel Bisulf ate 75 mg 08/10/20 09:00 08/12/20 08:30 Plavix PO Not Given DAILY TOSHIA Collagenase 1 applic 08/11/20 09:00 08/12/20 08:31 Santyl TOPICAL 1 applic DAILY TOSHIA Administration Duloxetine HCl 30 mg 08/10/20 09:00 08/12/20 08:32 Cymbalta PO 30 mg DAILY TOSHIA Administration Gabapentin 100 mg 08/10/20 01:00 08/12/20 08:32 Neurontin PO 100 mg Q8H TOSHIA Administration Heparin Sodium (Be ef Lung) 0 unit 08/09/20 23:54 08/11/20 22:36 Heparin IV 3,500 unit PRN PRN Administration Heparin weight-ba se protocol Protocol Ceftriaxone Sodium 1,000 mg/ 50 mls @ 100 mls/ hr 08/10/20 00:30 08/12/20 00:11 Sodium Chloride IV 100 mls/hr Q24H TOSHIA Administration Protocol Metronidazole 500 mg in 100 mls @ 100 mls/hr 08/10/20 01:00 08/12/20 14:14 Flagyl Iv IV 100 mls/hr Q8H TOSHIA Administration Protocol Heparin Sodium/Sod ium Chloride 25,000 unit in 50 0 mls @ 0 mls/hr 08/09/20 23:54 08/12/20 06:01 Heparin Drip IV 15.35 unit/kg/hr .Q0M TOSHIA 22 mls/hr Administration Protocol Per Protocol Vancomycin HCl 1,2 50 mg/ 250 mls @ 200 mls /hr 08/12/20 02:00 08/12/20 02:33 Sodium Chloride IV 200 mls/hr Q48H TOSHIA Administration Potassium Chloride 100 mls @ 25 mls/ hr 08/12/20 07:00 08/12/20 11:39 K-Magnus IV 08/12/20 14:59 25 mls/hr Q4H TOSHIA Administration Levothyroxine Sodi um 88 mcg 08/10/20 09:00 08/12/20 08:32 Synthroid PO 88 mcg DAILY TOSHIA Administration Lidocaine HCl 1 applic 08/10/20 14:30 08/10/20 16:00 Lidocaine 2% Jel ly TOPICAL 1 applic PRN PRN Administration PAIN Metoprolol Tartrat e 50 mg 08/10/20 09:00 08/12/20 08:32 Lopressor PO 50 mg BID TOSHIA Administration Morphine Sulfate 2 mg 08/09/20 23:54 08/12/20 08:29 Morphine IVP 2 mg Q4H PRN Administration SEVERE PAIN Pantoprazole Sodiu m 40 mg 08/10/20 09:00 08/12/20 08:32 Protonix PO 40 mg DAILY TOSHIA Administration PFSH Anesthesia PFSH: Medical History Acute on chronic diastolic (congestive) heart failure Anemia Benign essential hematuria Benign essential hypertension with target blood pressure below 140/90 CAD (coronary artery disease) Chronic kidney disease 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 Dyslipidemia Leg swelling NSTEMI (non-ST elevated myocardial infarction) Postoperative atrial fibrillation SOB (shortness of breath) Sternal wound dehiscence Tubal ligation evaluation Surgical History H/O hysterectomy for benign disease Status post aorto-coronary artery bypass graft Family History Brother CAD (coronary artery disease), Onset Age: 59 of myocardial infarction at age 59 Father CAD (coronary artery disease), Onset Age: 55 Had open heart surgery x3 Grandfather CAD (coronary artery disease), Onset Age: 55 Also of myocardial infarction in the late 50s Social History Smoking and tobacco status: former smoker Data Anesthesia CBC & Chem 7: 08/12/20 04:20 08/12/20 12:48 Other Labs: Laboratory Results - last 48 hr 08/10/20 08/10/20 08/10/20 13:45 19:46 22:15 WBC RBC Hgb Hct MCV MCH MCHC RDW Plt Count MPV Neut % (Auto) Lymph % (Auto) [place] % (Auto) Eos % (Auto) Baso % (Auto) Neut # (Auto) Lymph # (Auto) [place] # (Auto) Eos # (Auto) Baso # (Auto) Nucleated RBC % (auto) Nucleated RBCs # APTT 94.4 H D Sodium Potassium Chloride Carbon Dioxide Anion Gap BUN Creatinine GFR Calculation Glucose POC Glucose 136 Calculated Osmolality Calcium Phosphorus Magnesium Total Bilirubin AST ALT Alkaline Phosphatase Total Protein Albumin Globulin Nasal/Oral COVID-19 PCR Negative 08/11/20 08/11/20 08/11/20 04:30 04:30 04:30 WBC 19.1 H RBC 2.84 L Hgb 8.8 L Hct 28.3 L MCV 99.6 H MCH 31.0 MCHC 31.1 RDW 15.0 Plt Count 293 MPV 11.8 H Neut % (Auto) 86.2 Lymph % (Auto) 6.6 [place] % (Auto) 5.1 Eos % (Auto) 0.3 Baso % (Auto) 0.5 Neut # (Auto) 16.48 H Lymph # (Auto) 1.3 [place] # (Auto) 1.0 H Eos # (Auto) 0.1 Baso # (Auto) 0.1 Nucleated RBC % (auto) 0 Nucleated RBCs # 0.0 APTT 57.9 H Sodium 136 Potassium 3.1 L Chloride 94 L Carbon Dioxide 26 Anion Gap 19.1 H BUN 68 H Creatinine 2.1 H GFR Calculation Not Reportable Glucose 111 POC Glucose Calculated Osmolality 302 H Calcium 9.4 Phosphorus 3.7 Magnesium 2.0 Total Bilirubin 0.3 AST 68 H ALT 23 Alkaline Phosphatase 190 H Total Protein 6.6 Albumin 2.6 L Globulin 4.0 Nasal/Oral COVID-19 PCR 08/11/20 08/11/20 08/11/20 06:35 11:12 12:58 WBC RBC Hgb Hct MCV MCH MCHC RDW Plt Count MPV Neut % (Auto) Lymph % (Auto) [place] % (Auto) Eos % (Auto) Baso % (Auto) Neut # (Auto) Lymph # (Auto) [place] # (Auto) Eos # (Auto) Baso # (Auto) Nucleated RBC % (auto) Nucleated RBCs # APTT 71.7 H Sodium Potassium Chloride Carbon Dioxide Anion Gap BUN Creatinine GFR Calculation Glucose POC Glucose 175 173 Calculated Osmolality Calcium Phosphorus Magnesium Total Bilirubin AST ALT Alkaline Phosphatase Total Protein Albumin Globulin Nasal/Oral COVID-19 PCR 08/11/20 08/11/20 08/11/20 17:11 19:48 21:11 WBC RBC Hgb Hct MCV MCH MCHC RDW Plt Count MPV Neut % (Auto) Lymph % (Auto) [place] % (Auto) Eos % (Auto) Baso % (Auto) Neut # (Auto) Lymph # (Auto) [place] # (Auto) Eos # (Auto) Baso # (Auto) Nucleated RBC % (auto) Nucleated RBCs # APTT 27.6 D Sodium Potassium Chloride Carbon Dioxide Anion Gap BUN Creatinine GFR Calculation Glucose POC Glucose 138 163 Calculated Osmolality Calcium Phosphorus Magnesium Total Bilirubin AST ALT Alkaline Phosphatase Total Protein Albumin Globulin Nasal/Oral COVID-19 PCR 08/12/20 08/12/20 08/12/20 04:20 04:20 04:20 WBC 12.9 H RBC 2.62 L Hgb 8.1 L Hct 26.0 L MCV 99.2 H MCH 30.9 MCHC 31.2 RDW 14.6 Plt Count 289 MPV 12.2 H Neut % (Auto) 84.3 Lymph % (Auto) 7.1 [place] % (Auto) 6.0 Eos % (Auto) 1.1 Baso % (Auto) 0.4 Neut # (Auto) 10.88 H Lymph # (Auto) 0.9 [place] # (Auto) 0.8 Eos # (Auto) 0.1 Baso # (Auto) 0.1 Nucleated RBC % (auto) 0 Nucleated RBCs # 0.0 APTT 98.0 H D Sodium 137 Potassium 2.5 L* Chloride 95 L Carbon Dioxide 27 Anion Gap 17.5 BUN 63 H Creatinine 2.0 H GFR Calculation Not Reportable Glucose 112 POC Glucose Calculated Osmolality 303 H Calcium 9.1 Phosphorus 3.2 Magnesium 1.7 Total Bilirubin 0.2 AST 50 H ALT 23 Alkaline Phosphatase 162 H Total Protein 6.0 L Albumin 2.1 L Globulin 3.9 Nasal/Oral COVID-19 PCR 08/12/20 08/12/20 08/12/20 06:25 11:34 12:48 WBC RBC Hgb Hct MCV MCH MCHC RDW Plt Count MPV Neut % (Auto) Lymph % (Auto) [place] % (Auto) Eos % (Auto) Baso % (Auto) Neut # (Auto) Lymph # (Auto) [place] # (Auto) Eos # (Auto) Baso # (Auto) Nucleated RBC % (auto) Nucleated RBCs # APTT 30.0 D Sodium Potassium Chloride Carbon Dioxide Anion Gap BUN Creatinine GFR Calculation Glucose POC Glucose 122 119 Calculated Osmolality Calcium Phosphorus Magnesium Total Bilirubin AST ALT Alkaline Phosphatase Total Protein Albumin Globulin Nasal/Oral COVID-19 PCR 08/12/20 12:48 WBC RBC Hgb Hct MCV MCH MCHC RDW Plt Count MPV Neut % (Auto) Lymph % (Auto) [place] % (Auto) Eos % (Auto) Baso % (Auto) Neut # (Auto) Lymph # (Auto) [place] # (Auto) Eos # (Auto) Baso # (Auto) Nucleated RBC % (auto) Nucleated RBCs # APTT Sodium Potassium 3.2 L Chloride Carbon Dioxide Anion Gap BUN Creatinine GFR Calculation Glucose POC Glucose Calculated Osmolality Calcium Phosphorus Magnesium Total Bilirubin AST ALT Alkaline Phosphatase Total Protein Albumin Globulin Nasal/Oral COVID-19 PCR Micro: Microbiology 08/10/20 02:05 Gram Stain - Final Leg - #1 Wound Culture - Final Proteus mirabilis Cardiac Studies: No Data to Display
[2020-08-12] MEDS: sodium chloride 0.9% 1,000 ML 30 ML IV (15:20)
--- NOTE | 2020-08-12 15:25 | P.PN_ITS ---
Subjective Subjective: Interval history: no issues overnight Vitals/I&O/Wt Last Vital Signs Temp 97.2 F L 08/12/20 14:55 Pulse 74 08/12/20 14:55 Resp 20 H 08/12/20 14:55 BP 124/64 08/12/20 14:55 Pulse Ox 93 08/12/20 14:55 08/12/20 08/12/20 08/12/20 06:59 14:59 22:59 Intake Total 585.4 / 1365.4 99.167 / 199.167 100 / 199.167 Output Total 600 / 600 Balance 585.4 / 1365.4 -500.833 / -400.833 100 / -400.833 Physical Exam Narrative: EXAM NARRATIVE: Right leg: dressings dry Data : 08/12/20 04:20 08/12/20 12:48 Micro: Microbiology 08/10/20 02:05 Gram Stain - Final Leg - #1 Wound Culture - Final Proteus mirabilis A&P Assessment and plan (1) Leg wound, left: 69-year-old female with multiple comorbidities and bilateral pedal edema who has multiple small wounds on the left leg. This can be managed with daily Santyl dressings. Status: Acute (2) Leg wound, right: Patient has a much larger wound on the right leg with necrotic tissue mainly skin and subcutaneous which would benefit from debridement. We will plan for debridement of the right foot under MAC today Status: Acute Attestations Medical Necessity Statement*: leg wound Coding Level of Care Code Acute Dredge Pipe Installer for Hillary Lambert Diagnoses Leg wound, left S81.802A Leg wound, right S81.801A
--- NOTE | 2020-08-12 16:37 | SUR.PHASEI ---
PT AWAKES EASILY WITH GOOD RESP , PT PLACED ON RA SATS 97% VSS. IV PATENT BILAT LOWER LEGS DRESSINGS D/I ,
--- NOTE | 2020-08-12 16:40 | PM.PACU ---
PACU note Post-Anesthesia Exam: awake and vital signs stable Disposition: back to floor
[2020-08-12] MEDS: lidocaine 1% INJ 20 mL INTRADERMA (17:11)
--- NOTE | 2020-08-12 18:09 | PC.NURSE ---
This RN was going to administer Morphine for pain management to the left AC and she had c/o pain with saline flush. Upon further assessment, it was noted that the fluid was leaking around the IV catheter and the catheter itself was bent. I administered the Morphine in the IV to the left hand, then d/c'd the IV to the left AC. The catheter was intact upon removal and the patient tolerated the procedure well with no complaints. Patient denied further concerns at this time.
[2020-08-12 20:38] LABS: Partial Thromboplastin Time 32.1 SECONDS (23.9-36.7)
--- NOTE | 2020-08-12 20:50 | PM.PN ---
Subjective Subjective: Interval history: She this morning (prior to debridement) still bothered by pain in her legs at the wounds, pain in the right hip. Otherwise no new symptoms. Denies any other new pain or discomfort. Not short of breath. Vitals/I&O/Wt Last Vital Signs Temp 98.4 F 08/12/20 19:41 Pulse 69 08/12/20 19:41 Resp 17 08/12/20 19:41 BP 111/65 08/12/20 19:41 Pulse Ox 92 08/12/20 19:41 08/12/20 08/12/20 08/12/20 06:59 14:59 22:59 Intake Total 585.4 / 1365.4 99.167 / 99.167 200 / 299.167 Output Total 600 / 600 600 / 1200 Balance 585.4 / 1365.4 -500.833 / -500.833 -400 / -900.833 Physical Exam Const: COMMON NORMALS: no acute distress and patient oriented x3 HENMT: COMMON NORMALS: oropharynx normal Neck/C-Spine: COMMON NORMALS: no JVD Resp: COMMON NORMALS: normal respiratory effort and clear to auscultation bilaterally AUSCULTATION: clear to auscultation bilaterally Cardio: COMMON NORMALS: no JVD, regular rhythm, S1 normal heart sound present, S2 normal heart sound present and No murmurs present (Cardio) RHYTHM: regular rhythm HEART SOUNDS: S1 normal heart sound present and S2 normal heart sound present GI: COMMON NORMALS: Normal to inspection, nondistended, normoactive bowel sounds present, Soft to palpation and non-tender PALPATION: Yes Soft to palpation Extremity: COMMON NORMALS: no joint enlargement and no pedal edema OTHER: Right hip with tiny bruise about 1.5 cm anterolaterally. Otherwise no erythema, no swelling that I can see, no tenderness on palpation. Reporting some pain with leg elevation. Bilateral wounds. She is very tender with try to change the dressings which adhered to some of the wounds. Large shallow ulcerations on anterior lateral and posterior side on the right side, ranging in diameter up to 10 cm. Some sloughing on the surface. No undermining, no tunneling. Not much surrounding erythema. There is some perhaps minimal purulent drainage. Bilateral feet feel warm. Appear perfused, although I cannot palpate pulses. On the left side has some scarring which appears in multiple occasions below the knee, possibly from previously healed lesions, dry scaly skin. Much smaller ulceration posteriorly at the left calf about 5 cm in size, irregular borders, shallow ulceration. No crepitation. Neuro: COMMON NORMALS: patient oriented x3 and moves all extremities Skin: COMMON NORMALS: no rashes or lesions noted GENERAL SKIN EXAM: no rashes or lesions noted Data : 08/12/20 04:20 08/12/20 12:48 Micro: Microbiology 08/10/20 02:05 Gram Stain - Final Leg - #1 Wound Culture - Final Proteus mirabilis A&P Assessment and plan (1) Bilateral lower leg cellulitis: She is having persistent pain there pre-debridement. Underwent surgical debridement today. No signs of necrotizing fasciitis infection noted on CT or per discussion with surgery, however, did have a good amount of necrotic tissue and much larger right side wound which was debrided, with clean surrounding margins noted by surgery. Sepsis appears to be improving. Fever resolved. Tachycardia resolved. Leukocytosis trending down. Blood culture has been done. Wound culture with Proteus mirabilis from 08/10 prior to debridement. Continue IV antibiotics. We discussed with cardiology who reviewed her images including duplex ultrasound and prior CTA done with aorta runoff, for now continue medical treatment, and consider additional outpatient assessment for intervention. We had again a long discussion with her daughter with regards to her condition, as well as assessment and plan of treatment. We discussed again regarding continuation of treatment here, versus arranging transfer to [facility]. At this time again there are no beds available at [facility], and daughter so far is happy with her progress and happy to continue hospitalization here. A1c looks ok. Suggestion of moderate peripheral renal disease on arterial duplex at the end of July. Venous duplex negative for DVT. Her wounds do not appear arterial. Looks more like chronic venous insufficiency, but not say that arterial insufficiency may not be contributing. At this time more involved assessment risks would outweigh the benefits given renal failure. Request assessment by bedside Doppler of pulses. Dopplerable pulses. Feet are warm/perfused. Status: Acute (2) Acute kidney injury superimposed on CKD: -EDMUNDO on CKD. Improving. Creatinine is little bit better today down to 2. Discussed with her daughter again. At this time is not requiring hemodialysis, and at this time would avoid placing dialysis catheter due to ongoing skin infection and improving sepsis. Daughter is supportive of this assessment and plan. Continue to monitor renal function. Follow-up with nephrology after discharge. Prescription with her primary provider she was considered nearing hemodialysis. Follows up with Dr. Lucero in office. Diarrhea has resolved. At this time we are holding Bumex, metolazone. For now we will hold off any additional IV hydration. -CT scan of the abdomen, no hydronephrosis, no nephrolithiasis, UA negative for UTI Status: Acute (3) Acute dehydration: Hold additional IV fluids for now. The area has resolved. Monitor volume status, REAGAN. Avoid fluid overload. Status: Acute (4) Viral gastroenteritis: This appears to have improved. Stool studies were ordered but could not be collected as diarrhea is resolved so far. Negative COVID 19 PCR. Status: Acute (5) Abrasion of scalp: Appears to be healing well. Monitor. Status: Acute Qualifiers: Encounter type: initial encounter Qualified Code(s): S00.01XA - Abrasion of scalp, initial encounter (6) Contusion of face: Status: Acute Qualifiers: Encounter type: initial encounter Qualified Code(s): S00.83XA - Contusion of other part of head, initial encounter (7) Fall: Again having pain in the right hip. Additional assessment by hip x-ray without fracture. Reassess, if pain persists, may need additional assessment by CT as discussed with patient and daughter. There is no superficial hip swelling, no erythema, bruising or any other changes. No warmth. She had a femur x-ray earlier which did not reveal any obvious fractures. Will obtain additional views with dedicated femoral x-ray. She is feeling little bit stronger today. Continue treatment of underlying infection. Sepsis resolving. -This fall is a component of mechanical and nonmechanical features -Has history of TIA, is on aspirin, Plavix, statin Carotid Doppler with some right-sided stenosis 50-69%, moderate atheromatous plaque right carotid bulb/ICA, left ICA less than 50% stenosis, moderate atheromatous plaque left carotid bulb/ICA, Cardiac echocardiogram with normal ejection fraction, grade 1 diastolic dysfunction. Moderate mitral valve regurgitation. Continue to work with PT. Patient daughter did not want her to go to SNF as recommended. Want her to return home. Daughter is going to obtain a Serena lift. Status: Acute Qualifiers: Encounter type: initial encounter Qualified Code(s): W19.XXXA - Unspecified fall, initial encounter (8) 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: Status: Acute Qualifiers: Associated angina: without angina Qualified Code(s): I25.810 - Atherosclerosis of coronary artery bypass graft(s) without angina pectoris (9) PAD (peripheral artery disease): Dopplerable pulses. Discussed with interventional cardiology who reviewed her prior imaging doing arterial duplex, MODESTA, and past CT a aorta with runoff. -arterial us on 07/2020 showed: Abnormal resting TBIs bilaterally, suggestive of moderate peripheral arterial disease. Moderate diffuse heterogeneous plaques in the superficial femoral arteries bilaterally For now has been empirically on heparin drip due to concern for peripheral arterial disease, nonhealing ulcers. There was concern for wrist pain, although is not having any today. However, also with poor renal function for additional evaluation or intervention. As discussed with cardiology at this time continue medical therapy, follow-up after acute episode of illness for cautious consideration of additional intervention. Continue ASA, plavix. Status: Acute (10) Atrial fibrillation: -Not on anticoagulation?, Seems as if she had postoperative atrial fibrillation after CABG Fall prior to admission.-Continue amiodarone May have difficult time anticoagulation if persistent fall risk. Status: Acute (11) Hypothyroid: -Dr. Lombardi stopped liothyronine 5 mcg once daily -levothyroxine dose was reduced down to 88 mcg Status: Chronic Qualifiers: Hypothyroidism type: acquired Qualified Code(s): E03.9 - Hypothyroidism, unspecified (12) Leg swelling: -Hold metolazone and Bumex Status: Acute (13) Benign essential hypertension with target blood pressure below 140/90: Status: Acute (14) Type 2 diabetes mellitus: -Patient has type 2 diabetes in her chart -Denies a history of this -hemoglobin A1c 5.7 Monitor glucose Status: Acute Attestations Medical Necessity Statement*: Continue admission for cyst management of infection of lower extremity wounds, improving sepsis, in the setting of chronic kidney disease, PAD and other chronic comorbidities. Coding Level of Care Code Acute Insulation Blanket Maker for Chg Fwd Diagnoses Bilateral lower leg cellulitis L03.116; L03.115 Acute kidney injury superimposed on CKD N17.9; N18.9 Acute dehydration E86.0 Viral gastroenteritis A08.4 Abrasion of scalp S00.01XA Encounter type: initial encounter Contusion of face S00.83XA Encounter type: initial encounter Fall W19.XXXA Encounter type: initial encounter 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
[2020-08-12 20:57] LABS: Glucose Point of Care 206 mg/dL (70-110)
[2020-08-12] MEDS: atorvastatin 40 mg Tablet 20 MG PO (22:43)
--- NOTE | 2020-08-12 23:10 | PC.NURSE ---
This RN received orders during report from DANIELA Caruso that heparin drip was to be restarted at 1999. There was no physical orders in the chart or EMAR. Called Dr. Chamorro to obtain orders for heparin drip. He referred RN to Dr. Burnett due to wounds on legs saturating dressings. Received orders for wound dressing that consisted of removing current dressing, applying surgicell to wound bed, pack with kerlex, cover with ABD pad, and wrap in Kerlex. This was done per doctors orders using aseptic technique, 2mg of morphine administered before dressing change for prophylactic pain control. Patient tolerated dressing change well. Heparin drip is being held until midnight per Dr. Burnett. No other needs voiced at this time, will continue to monitor.
[2020-08-13] VITALS (8 sets, daily range): BP systolic 95–116; BP diastolic 60–68; PULSE 68–71; RESP 16–18; TEMP 36.6–37.1; O2SAT 91–94
--- NOTE | 2020-08-13 00:30 | PC.NURSE ---
Heparin drip started back at 18mL/hr per doctors orders, this is verified by SHAWN Elizondo.
--- NOTE | 2020-08-13 00:34 | PC.NURSE ---
Reinforced dressing on R leg with abd pad and kerlex after doctors ordered dressing change.
[2020-08-13] MEDS: cefTRIAXone 1,000 MG in sodium chloride 0.9% (plus) 50 ML 100 MG IV (01:19)
[2020-08-13] MEDS: gabapentin 100 mg Capsule PO ×3 (01:20→17:54)
--- NOTE | 2020-08-13 04:53 | PC.NURSE ---
wet through two briefs
[2020-08-13] MEDS: metroNIDAZOLE IV 500 MG/100 ML PREMIX 100 MG IV ×3 (05:13→22:25)
[2020-08-13 06:12] LABS: Glucose Point of Care 123 mg/dL (70-110)
[2020-08-13 06:42] LABS: Basophils # 0.1 10^3/uL (0.0-0.1); Basophils % 0.7 %; Eosinophils # 0.2 10^3/uL (0.0-0.8); Eosinophils % 1.3 %; Hematocrit 25.4 % (37.0-47.0); Hemoglobin 7.9 g/dL (11.5-15.3); Lymphocytes # 1.2 10^3/uL (0.8-4.8); Lymphocytes % 9.5 %; Mean Corpuscular HGB Conc 31.1 g/dL (30.0-36.0); Mean Corpuscular Hemoglobin 30.9 pg (28.0-34.0); Mean Corpuscular Volume 99.2 fL (81-99); Monocytes # 0.9 10^3/uL (0.2-0.9); Monocytes % 7.6 %; Neutrophils # 9.62 10^3/uL (1.8-7.7); Neutrophils % 79.8 %; Nucleated Red Blood Cells % 0 %; Platelet Count 335 10^3/cmm (130-400); Red Blood Count 2.56 10^6/uL (4.1-5.3); Red Cell Distribution Width 14.8 % (12.1-15.1); White Blood Count 12.1 10^3/uL (4.0-10.0)
[2020-08-13 07:04] LABS: Partial Thromboplastin Time 66.7 SECONDS (23.9-36.7)
[2020-08-13 07:15] LABS: Alanine Aminotransferase 28 U/L (0-33); Albumin Level 2.4 g/dL (3.5-5.2); Alkaline Phosphatase 135 IU/L (35-105); Anion Gap 13.9 (5-19); Aspartate Amino Transferase 70 U/L (0-32); Blood Urea Nitrogen 53 mg/dL (8-23); Calcium 8.6 mg/dL (8.5-10.5); Carbon Dioxide 30 mmol/L (22-29); Chloride 95 mmol/L (98-107); Globulin 3.8 g/dL (1.3-4.6); Glucose 114 mg/dL (65-115); Osmolality Calculated 297 mOsm/kg (285-295); Sodium 136 mmol/L (136-145); Total Bilirubin 0.2 mg/dL (0.15-1.2); Total Protein 6.2 g/dL (6.6-8.7)
[2020-08-13 07:21] LABS: Potassium 2.9 mmol/L (3.5-5.1)
--- NOTE | 2020-08-13 08:29 | P.OP_ITS ---
Operative Report Date of procedure: August 12, 2020 Pre-op Diagnosis: Cellulitis with necrotic wound right leg Post-op Diagnosis: Wound #1: 9 x 8 x 1 cm deep lateral aspect of right leg Wound #2: 3 x 3 x 1 cm deep medial aspect of right leg Procedure Done: 1. Excisional debridement of necrotic skin, subcutaneous tissue using 15 blade on the lateral aspect of right leg 2. Excisional debridement of necrotic skin, subcutaneous tissue using 15 blade on the medial aspect of right leg Specimens removed/disposition: Aerobic anaerobic wound cultures, necrotic skin and subcutaneous tissue Surgeon: Edin Burnett Anesthesia: MAC Estimated blood loss (mL): 25 Condition: stable Disposition: PACU Procedure: The patient was in the operating room and placed under MAC and patient was on therapeutic IV antibiotics. The right leg was prepped and draped in a sterile manner. Wound #1: Using 15 blade excisional debridement of necrotic skin and subcutaneous tissue was performed on the lateral aspect of the right leg until punctate bleeding was noted resulting in wound measuring 9 x 8 x 1 cm deep. Wound 3: Using 15 blade excisional debridement of necrotic skin and subcutaneous tissue was performed on the medial aspect of the right leg until punctate bleeding was noted resulting in wound measuring 3 x 3 x 1 cm deep. The wounds were irrigated with saline and packed with Kerlix soaked in 0.5% Mar aiyana, covered with ABD and wrapped with Kerlix gauze. The patient was transferred to recovery room in stable condition.
[2020-08-13] MEDS: pantoprazole DR 40 mg Tablet PO (08:51)
[2020-08-13] MEDS: aspirin 81 mg EC Tablet PO (08:51)
[2020-08-13] MEDS: levothyroxine 88 mcg Tablet PO (08:51)
[2020-08-13] MEDS: clopidogrel 75 mg Tablet PO (08:52)
[2020-08-13] MEDS: duloxetine 30 mg Capsule PO (08:52)
[2020-08-13] MEDS: amiodarone 200 mg Tablet PO (08:52)
[2020-08-13] MEDS: metoprolol tartrate 50 mg Tablet PO ×2 (08:52→17:54)
[2020-08-13 11:04] LABS: Glucose Point of Care 184 mg/dL (70-110)
[2020-08-13] MEDS: collagenase oint 30 gm 1 APPLIC TOPICAL (11:30)
[2020-08-13] MEDS: potassium chloride ER 10 mEq Tablet 40 MEQ PO (11:40)
[2020-08-13] MEDS: morphine 4 mg/mL SDV 1 mL 2 MG IVP ×3 (11:40→22:23)
[2020-08-13 17:06] LABS: Partial Thromboplastin Time 58.9 SECONDS (23.9-36.7)
[2020-08-13 18:11] LABS: Glucose Point of Care 199 mg/dL (70-110)
--- NOTE | 2020-08-13 18:29 | P.PN_ITS ---
Subjective Subjective: Interval history: She says she is still feeling pain in her legs, but today they are feeling slightly better. She is still bothered by pain in her right hip. She does say that she fell pretty hard. Vitals/I&O/Wt Last Vital Signs Temp 98.8 F 08/13/20 16:00 Pulse 69 08/13/20 16:00 Resp 18 08/13/20 17:56 BP 95/60 08/13/20 16:00 Pulse Ox 91 08/13/20 16:00 08/13/20 08/13/20 08/13/20 06:59 14:59 22:59 Intake Total 200 / 599.167 240 / 240 Output Total 100 / 100 Balance 200 / -600.833 140 / 140 Physical Exam Const: COMMON NORMALS: no acute distress and patient oriented x3 HENMT: COMMON NORMALS: oropharynx normal Neck/C-Spine: COMMON NORMALS: no JVD Resp: COMMON NORMALS: normal respiratory effort and clear to auscultation bilaterally AUSCULTATION: clear to auscultation bilaterally Cardio: COMMON NORMALS: no JVD, regular rhythm, S1 normal heart sound present, S2 normal heart sound present and No murmurs present (Cardio) RHYTHM: regular rhythm HEART SOUNDS: S1 normal heart sound present and S2 normal heart sound present GI: COMMON NORMALS: Normal to inspection, nondistended, normoactive bowel sounds present, Soft to palpation and non-tender PALPATION: Yes Soft to palpation Extremity: COMMON NORMALS: no joint enlargement and no pedal edema OTHER: Right hip with no erythema, no swelling that I can see, no tenderness on palpation. Wounds covered by clean dressing on bilateral lower extremities. Small amount of serosanguineous strikethrough on the right. Wound of the left hip On the left side has some scarring which appears in multiple occasions below the knee, possibly from previously healed lesions, dry scaly skin. Much smaller ulceration posteriorly at the left calf about 5 cm in size, irregular borders, shallow ulceration. No crepitation. Neuro: COMMON NORMALS: patient oriented x3 and moves all extremities Skin: COMMON NORMALS: no rashes or lesions noted GENERAL SKIN EXAM: no rashes or lesions noted Data : 08/13/20 06:36 08/13/20 06:36 Micro: Microbiology 08/12/20 16:35 Gram Stain - Final Leg - Right A&P Assessment and plan (1) Bilateral lower leg cellulitis: Bilateral lower extremity wounds status post debridement of necrotic tissue 08/12, larger ones on the right, small wound on the left lower extremity. Subjectively reports is feeling a little bit better. Leukocytosis continues to decrease. Afebrile. No signs of necrotizing fasciitis infection noted on CT or per discussion with surgery, however, did have a good amount of necrotic tissue and much larger right side wound which was debrided, with clean surrounding margins noted by surgery. Blood culture has been done. Wound culture with Proteus mirabilis from 08/10 prior to debridement. Continue IV antibiotics pending cultures from debridement tissue. So far heavy gram-positive cocci in clusters. Discussed also with cardiology who reviewed her images including duplex ultrasound and prior CTA done with aorta runoff, for now continue medical treatment, and consider additional outpatient assessment for intervention. We had again a long discussion with her daughter with regards to her condition, as well as assessment and plan of treatment. We discussed again regarding continuation of treatment here, versus arranging transfer to [facility]. At this time again there have been no beds last several days available at [facility], and daughter so far is happy with her progress and happy to continue hospitalization here. A1c looks ok. Suggestion of moderate peripheral renal disease on arterial duplex at the end of July. Venous duplex negative for DVT. Her wounds do not appear arterial. Looks more like chronic venous insufficiency, but not say that arterial insufficiency may not be contributing. At this time more involved assessment risks would outweigh the benefits given renal failure. Request assessment by bedside Doppler of pulses. Dopplerable pulses. Feet are warm/perfused. Status: Acute (2) Acute kidney injury superimposed on CKD: -EDMUNDO on CKD. Improving. Creatinine is little bit better today down to 1.5. DC perioperative IVF. Discussed with her daughter again. At this time is not requiring hemodialysis, and at this time would avoid placing dialysis catheter due to ongoing skin infection and improving sepsis. Daughter is supportive of this assessment and plan. Continue to monitor renal function. Follow-up with nephrology after discharge. Prescription with her primary provider she was considered nearing hemodialysis. Follows up with Dr. Lucero in office. Diarrhea has resolved. At this time we are holding Bumex, metolazone. For now we will hold off any additional IV hydration. -CT scan of the abdomen, no hydronephrosis, no nephrolithiasis, UA negative for UTI Status: Acute (3) Acute dehydration: Hold additional IV fluids for now. The area has resolved. Monitor volume status, REAGAN. Avoid fluid overload. Status: Acute (4) Viral gastroenteritis: This appears to have improved. Stool studies were ordered but could not be collected as diarrhea is resolved so far. Negative COVID 19 PCR. Status: Acute (5) Abrasion of scalp: Appears to be healing well. Monitor. Status: Acute Qualifiers: Encounter type: initial encounter Qualified Code(s): S00.01XA - Abrasi on of scalp, initial encounter (6) Contusion of face: Status: Acute Qualifiers: Encounter type: initial encounter Qualified Code(s): S00.83XA - Contusion of other part of head, initial encounter (7) Fall: No fracture noted on x-ray right hip. Still complaining of pain, will assess by CT. Very deconditioned, needing further physical therapy. Continue to encourage her to work with therapy. She had considered going to [facility] facility, but only to [place], and does not appear that there are beds available there. Per discussion with daughter she had taken off work to be able to care for her terrence flores and so will be with her at all times, reducing chance of her falling down or otherwise injuring herself. Continue treatment of underlying infection. Sepsis resolving. -This fall is a component of mechanical and nonmechanical features -Has history of TIA, is on aspirin, Plavix, statin Carotid Doppler with some right-sided stenosis 50-69%, moderate atheromatous plaque right carotid bulb/ICA, left ICA less than 50% stenosis, moderate atheromatous plaque left carotid bulb/ICA, Cardiac echocardiogram with normal ejection fraction, grade 1 diastolic dysfunction. Moderate mitral valve regurgitation. Continue to work with PT. Patient daughter did not want her to go to SNF as recommended. Want her to return home. Daughter is going to obtain a Serena lift. Status: Acute Qualifiers: Encounter type: initial encounter Qualified Code(s): W19.XXXA - Unspecified fall, initial encounter (8) 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: Status: Acute Qualifiers: Associated angina: without angina Qualified Code(s): I25.810 - Atherosclerosis of coronary artery bypass graft(s) without angina pectoris (9) PAD (peripheral artery disease): Has had dopplerable pulses. Discussed with interventional cardiology who reviewed her prior imaging doing arterial duplex, MODESTA, and past CT a aorta with runoff. -arterial us on 07/2020 showed: Abnormal resting TBIs bilaterally, suggestive of moderate peripheral arterial disease. Moderate diffuse heterogeneous plaques in the superficial femoral arteries bilaterally For now has been empirically on heparin drip due to concern for peripheral arterial disease, nonhealing ulcers. There was concern for wrist pain, although is not having any today. However, also with poor renal function for additional evaluation or intervention. As discussed with cardiology at this time continue medical therapy, follow-up after acute episode of illness for cautious consideration of additional intervention. Continue ASA, plavix. Status: Acute (10) Atrial fibrillation: -Not on anticoagulation?, Seems as if she had postoperative atrial fibrillation after CABG Fall prior to admission.-Continue amiodarone May have difficult time anticoagulation if persistent fall risk. Status: Acute (11) Hypothyroid: -Dr. Lombardi stopped liothyronine 5 mcg once daily -levothyroxine dose was reduced down to 88 mcg Status: Chronic Qualifiers: Hypothyroidism type: acquired Qualified Code(s): E03.9 - Hypothyroidism, unspecified (12) Leg swelling: -Hold metolazone and Bumex Status: Acute (13) Benign essential hypertension with target blood pressure below 140/90: Status: Acute (14) Type 2 diabetes mellitus: -Patient has type 2 diabetes in her chart -Denies a history of this -hemoglobin A1c 5.7 Monitor glucose Status: Acute Additional A&P Information Hypokalemia: Replaced. Attestations Medical Necessity Statement*: Continue admission for assessment of management of improving sepsis, lower extremity wound infections, with peripheral artery disease, assessment of persistent hip pain, in the setting of chronic kidney disease. Coding Level of Care Code Acute Bolt Machine Operator for Chg Fwd Exam Comprehensive Diagnoses Bilateral lower leg cellulitis L03.116; L03.115 Acute kidney injury superimposed on CKD N17.9; N18.9 Acute dehydration E86.0 Viral gastroenteritis A08.4 Abrasion of scalp S00.01XA Encounter type: initial encounter Contusion of face S00.83XA Encounter type: initial encounter Fall W19.XXXA Encounter type: initial encounter 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
--- NOTE | 2020-08-13 18:29 | CTR_ITS ---
PROCEDURE INFORMATION: Exam: CT Right Lower Extremity Without Contrast, Hip Exam date and time: 08/13/2020 6:35 PM Age: 69 years old Clinical indication: Right; Patient HX: C/O R hip pain since fall 08/09 TECHNIQUE: Imaging protocol: CT of the Right lower extremity without contrast was performed. Exam focused on the hip. Radiation optimization: All CT scans at this facility use at least one of these dose optimization techniques: automated exposure control; mA and/or kV adjustment per patient size (includes targeted exams where dose is matched to clinical indication); or iterative reconstruction. COMPARISON: CR XR hip RT 2-3V wo/w pel* [id number] 08/11/2020 2:35 PM RADIATION DOSE METRICS: Total DLP (mGy-cm): 1217.6 FINDINGS: Bones/joints: There is no acute fracture or dislocation. There are [id number] degenerative changes in the right hip joint. Soft tissues: There is enlargement of the right iliopsoas muscle and tendon with adjacent subcutaneous/soft tissue edema. Series 2, image 1 demonstrates a heterogeneous density collection within the right iliopsoas muscle measuring 3.9 x 2.2 cm in size. This collection has a fluid fluid level with hyperdense components layering out dependently compatible with a hematocrit type level typically identified within intramuscular hematoma. No evidence of tendon avulsion. Intraperitoneal space: No free fluid in the pelvis. CT/CT hip RT wo con* [id number] IMPRESSION: 1. There is no acute fracture or dislocation. 2. Probable strain of the right iliopsoas with probable intramuscular hematoma in the right iliopsoas muscle measuring 3.9 x 2.2 cm in size. Radiation Dose CTDIVOL = (mGy): DLP = 1217.6 (mGy-cm)
[2020-08-13 20:38] LABS: Glucose Point of Care 193 mg/dL (70-110)
[2020-08-13] MEDS: atorvastatin 40 mg Tablet 20 MG PO (21:31)
[2020-08-13 23:06] LABS: Partial Thromboplastin Time 34.3 SECONDS (23.9-36.7)
[2020-08-14] VITALS (9 sets, daily range): BP systolic 95–135; BP diastolic 49–68; PULSE 62–69; RESP 16–18; TEMP 36.6–37.1; O2SAT 89–95
[2020-08-14] MEDS: gabapentin 100 mg Capsule PO ×3 (00:18→18:09)
[2020-08-14] MEDS: heparin 5,000 unit/mL INJ 1 mL IV (00:27)
[2020-08-14] MEDS: cefTRIAXone 1,000 MG in sodium chloride 0.9% (plus) 50 ML 100 MG IV ×2 (00:28→23:49)
--- NOTE | 2020-08-14 01:07 | PC.NURSE ---
0035 States pain better. Incontinent. Misti care and brief changed. Noted red indented area to posterior inner thigh. Turned to Left side. Encouraged to breathe deep and cough every hour.
[2020-08-14 01:35] LABS: Basophils # 0.1 10^3/uL (0.0-0.1); Basophils % 0.9 %; Eosinophils # 0.2 10^3/uL (0.0-0.8); Eosinophils % 1.9 %; Hematocrit 29.5 % (37.0-47.0); Hemoglobin 9.1 g/dL (11.5-15.3); Lymphocytes # 1.4 10^3/uL (0.8-4.8); Lymphocytes % 12.9 %; Mean Corpuscular HGB Conc 30.8 g/dL (30.0-36.0); Mean Corpuscular Hemoglobin 30.8 pg (28.0-34.0); Mean Platelet Volume 11.8 fL (7.4-10.4); Monocytes # 0.7 10^3/uL (0.2-0.9); Monocytes % 6.6 %; Neutrophils # 8.25 10^3/uL (1.8-7.7); Nucleated Red Blood Cells % 0.3 %; Platelet Count 361 10^3/cmm (130-400); Red Blood Count 2.95 10^6/uL (4.1-5.3); Red Cell Distribution Width 14.8 % (12.1-15.1); White Blood Count 10.9 10^3/uL (4.0-10.0)
[2020-08-14 01:53] LABS: Alanine Aminotransferase 33 U/L (0-33); Albumin Level 2.4 g/dL (3.5-5.2); Alkaline Phosphatase 142 IU/L (35-105); Anion Gap 15.3 (5-19); Aspartate Amino Transferase 72 U/L (0-32); Blood Urea Nitrogen 53 mg/dL (8-23); Calcium 8.7 mg/dL (8.5-10.5); Carbon Dioxide 27 mmol/L (22-29); Chloride 93 mmol/L (98-107); Globulin 4.4 g/dL (1.3-4.6); Glucose 130 mg/dL (65-115); Osmolality Calculated 290 mOsm/kg (285-295); Potassium 3.3 mmol/L (3.5-5.1); Sodium 132 mmol/L (136-145); Total Bilirubin 0.3 mg/dL (0.15-1.2); Total Protein 6.8 g/dL (6.6-8.7)
[2020-08-14] MEDS: heparin drip 25,000 UNIT/500 ML PREMIX 22 UNIT IV (04:58)
[2020-08-14 07:16] LABS: Glucose Point of Care 134 mg/dL (70-110)
[2020-08-14] MEDS: aspirin 81 mg EC Tablet PO (08:30)
[2020-08-14] MEDS: amiodarone 200 mg Tablet PO (08:30)
[2020-08-14] MEDS: metoprolol tartrate 50 mg Tablet PO ×2 (08:31→18:10)
[2020-08-14] MEDS: pantoprazole DR 40 mg Tablet PO (08:31)
[2020-08-14] MEDS: duloxetine 30 mg Capsule PO (08:31)
[2020-08-14] MEDS: levothyroxine 88 mcg Tablet PO (08:31)
[2020-08-14] MEDS: potassium chloride ER 10 mEq Tablet 20 MEQ PO (08:31)
[2020-08-14] MEDS: metroNIDAZOLE IV 500 MG/100 ML PREMIX 100 MG IV ×2 (08:32→18:11)
[2020-08-14 09:07] LABS: Partial Thromboplastin Time 78.5 SECONDS (23.9-36.7)
[2020-08-14] MEDS: morphine 4 mg/mL SDV 1 mL 2 MG IVP ×2 (09:45→20:06)
[2020-08-14 11:12] LABS: Glucose Point of Care 151 mg/dL (70-110)
--- NOTE | 2020-08-14 11:18 | P.PN_ITS ---
Subjective Subjective: Interval history: Patient continues to complain of lower extremity pains Vitals/I&O/Wt Last Vital Signs Temp 98.3 F 08/14/20 07:20 Pulse 66 08/14/20 07:20 Resp 18 08/14/20 07:20 BP 102/64 08/14/20 07:20 Pulse Ox 91 08/14/20 07:20 08/13/20 08/14/20 08/14/20 22:59 06:59 14:59 Intake Total 100 / 560 220 / 560 240 / 240 Balance 100 / 460 220 / 460 240 / 240 Physical Exam Narrative: EXAM NARRATIVE: Right leg: Medial and lateral wound on the right leg has minimal necrotic tissue, no significant bleeding noted Data : 08/14/20 01:16 08/14/20 01:16 Micro: Microbiology 08/12/20 16:35 Gram Stain - Final Leg - Right A&P Assessment and plan (1) Leg wound, right: 69-year-old female with necrotic wound on right leg on the medial and lateral aspect status post debridement Continue IV antibiotics Wet-to-dry dressing change once daily after irrigating the wound with saline Patient will need follow-up in wound care Status: Acute Attestations Medical Necessity Statement*: Status post debridement of right lower extremity wound Coding Level of Care Code Acute Wired Sweatband Cutter for Hillary Lambert Diagnoses Leg wound, right S81.801A
--- NOTE | 2020-08-14 11:50 | PC.SOCIAL ---
IMM Update Pg. 2 of IMM updated. Copy left at bedside.
--- NOTE | 2020-08-14 16:16 | PM.PN ---
Subjective Subjective: Interval history: At the time of my visit is zepeda Vitals/I&O/Wt Last Vital Signs Temp 98.6 F 08/14/20 14:38 Pulse 66 08/14/20 15:11 Resp 16 08/14/20 15:11 BP 110/68 08/14/20 14:38 Pulse Ox 95 08/14/20 15:11 08/14/20 08/14/20 08/14/20 06:59 14:59 22:59 Intake Total 220 / 560 380 / 380 Balance 220 / 460 380 / 380 Physical Exam Const: COMMON NORMALS: no acute distress and patient oriented x3 HENMT: COMMON NORMALS: oropharynx normal Neck/C-Spine: COMMON NORMALS: no JVD Resp: COMMON NORMALS: normal respiratory effort and clear to auscultation bilaterally AUSCULTATION: clear to auscultation bilaterally Cardio: COMMON NORMALS: no JVD, regular rhythm, S1 normal heart sound present, S2 normal heart sound present and No murmurs present (Cardio) RHYTHM: regular rhythm HEART SOUNDS: S1 normal heart sound present and S2 normal heart sound present GI: COMMON NORMALS: Normal to inspection, nondistended, normoactive bowel sounds present, Soft to palpation and non-tender PALPATION: Yes Soft to palpation Extremity: COMMON NORMALS: no joint enlargement and no pedal edema OTHER: Right hip with no erythema, no swelling that I can see, no tenderness on palpation. Wounds covered by clean dressing on bilateral lower extremities. Small amount of serosanguineous strikethrough on the right. Wound of the left hip On the left side has some scarring which appears in multiple occasions below the knee, possibly from previously healed lesions, dry scaly skin. Much smaller ulceration posteriorly at the left calf about 5 cm in size, irregular borders, shallow ulceration. No crepitation. Neuro: COMMON NORMALS: patient oriented x3 and moves all extremities Skin: COMMON NORMALS: no rashes or lesions noted GENERAL SKIN EXAM: no rashes or lesions noted Data : 08/14/20 01:16 08/14/20 01:16 Micro: Microbiology 08/12/20 16:35 Gram Stain - Final Leg - Right Tissue Culture - Preliminary Strep pyogenes (grp a) A&P Assessment and plan (1) Bilateral lower leg cellulitis: Bilateral lower extremity wounds status post debridement of necrotic tissue 10/8, larger ones on the right, small wound on the left lower extremity. On the right deeper wound laterally, medially, and smaller posteriorly down to subcutaneous fat/muscle tissue. Some small areas of necrosis/sloughing in shallower places where she did not have debridement. Per discussion with surgery her wounds are satisfactory at this time. Noted bogginess on the right heel had been examined by surgery and probed intraoperatively. Leukocytosis continues to decrease. Afebrile. Due to extent of the wounds continue IV antibiotics at this time. Wound culture with Proteus mirabilis from 08/10 prior to debridement. Strep pyogenes growing from wound on the left. History of MRSA growing from wound in the chest, which has since healed. Discussed also with cardiology who reviewed her images including duplex ultrasound and prior CTA done with aorta runoff, for now continue medical treatment, and consider additional outpatient assessment for intervention. We had again a long discussion with her daughter with regards to her condition, as well as assessment and plan of treatment. We discussed regarding continuation of treatment here, versus arranging transfer to [facility]. At this time again there have been no beds last several days available at [facility], and daughter so far is happy with her progress and happy to continue hospitalization here. A1c looks ok. Suggestion of moderate peripheral arterial disease on arterial duplex at the end of July. Venous duplex negative for DVT. Her wounds do not appear arterial. Looks more like chronic venous insufficiency, but not say that arterial insufficiency may not be contributing. At this time more involved assessment risks would outweigh the benefits given renal failure. May be reassessed if clinically encounters difficulties with wound healing. Dopplerable pulses. Feet are warm/perfused. Status: Acute (2) Hematoma of right iliopsoas muscle: Recurrent muscle cramps, persistent pain in lower back/right hip. No fractures noted on x-ray. Assessed by CT due to persistent pain. Noted heterogenous density collection within the right iliopsoas muscle. Probable strain of the right iliopsoas with probable intramuscular hematoma of 3.9 x 2.2 cm in size. Reported she had had quite a good fall prior to admission. Has had no bacteremia. No staphylococcal infection noted in cultures. Suspicion for possible abscess is for now low but consider keeping on differential especially in depending on clinical progress. Discussed with patient and her daughter. We have discontinued anticoagulation. Discussed also her holding Plavix. For now continue low-dose aspirin. Will need to monitor. For DVT prophylaxis for now only SCD on one arm if can tolerate (cannot place on legs due to wounds). Will need to be reassessed to exclude expansion. Daughter is okay with cautious use of muscle relaxant. Status: Acute (3) Acute kidney injury superimposed on CKD: -EDMUNDO on CKD. Improved. Renal function appears to be close to baseline. Discussed with her daughter again. At this time is not requiring hemodialysis, and at this time would avoid placing dialysis catheter due to ongoing skin infection and improving sepsis. Daughter is supportive of this assessment and plan. Continue to monitor renal function. Follow-up with nephrology after discharge. Prescription with her primary provider she was considered nearing hemodialysis. Follows up with Dr. Lucero in office. Diarrhea has resolved. At this time we are holding Bumex, metolazone. For now we will hold off any additional IV hydration. -CT scan of the abdomen, no hydronephrosis, no nephrolithiasis, UA negative for UTI Status: Acute (4) Acute dehydration: Hold additional IV fluids for now. The area has resolved. Monitor volume status, REAGAN. Avoid fluid overload. Status: Acute (5) Viral gastroenteritis: This appears to have improved. Stool studies were ordered but could not be collected as diarrhea is resolved so far. Negative COVID 19 PCR. Status: Acute (6) Abrasion of scalp: Appears to be healing well. Monitor. Status: Acute Qualifiers: Encounter type: initial encounter Qualified Code(s): S00.01XA - Abrasion of scalp, initial encounter (7) Contusion of face: Status: Acute Qualifiers: Encounter type: initial encounter Qualified Code(s): S00.83XA - Contusion of other part of head, initial encounter (8) Fall: Iliopsoas fluid collection as above. Very deconditioned, needing further physical therapy. Continue to encourage her to work with therapy. She had [facility], but only to [place], and does not appear that there are beds available there. Per discussion with daughter she had taken off work to be able to care for her mother and so will be with her at all times, reducing chance of her falling down or otherwise injuring herself. Continue treatment of underlying infection. Sepsis resolving. -This fall is a component of mechanical and nonmechanical features -Has history of TIA, is on aspirin, Plavix, statin Carotid Doppler with some right-sided stenosis 50-69%, moderate atheromatous plaque right carotid bulb/ICA, left ICA less than 50% stenosis, moderate atheromatous plaque left carotid bulb/ICA, Cardiac echocardiogram with normal ejection fraction, grade 1 diastolic dysfunction. Moderate mitral valve regurgitation. Continue to work with PT. 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 Discussed with interventional cardiology who reviewed her prior imaging doing arterial duplex, MODESTA, and past CT a aorta with runoff. -arterial us on 07/2020 showed: Abnormal resting TBIs bilaterally, suggestive of moderate peripheral arterial disease. Moderate diffuse heterogeneous plaques in the superficial femoral arteries bilaterally For now has been empirically on heparin drip due to concern for peripheral arterial disease, nonhealing ulcers. There was concern for wrist pain, although is not having any today. However, also with poor renal function for additional evaluation or intervention. As discussed with cardiology at this time continue medical therapy, follow-up after acute episode of illness for cautious consideration of additional intervention. Continue ASA, plavix. Status: Acute (11) Atrial fibrillation: -Not on anticoagulation?, Seems as if she had postoperative atrial fibrillation after CABG Fall prior to admission.-Continue amiodarone May have difficult time anticoagulation if persistent fall risk. Currently anticoagulation on hold due to iliopsoas fluid collection suspected hematoma. Status: Acute (12) Hypothyroid: -Dr. Lombardi stopped liothyronine 5 mcg once daily -levothyroxine dose was reduced down to 88 mcg Status: Chronic Qualifiers: Hypothyroidism type: acquired Qualified Code(s): E03.9 - Hypothyroidism, unspecified (13) Leg swelling: -Hold metolazone and Bumex Status: Acute (14) Benign essential hypertension with target blood pressure below 140/90: Status: Acute (15) Type 2 diabetes mellitus: -Patient has type 2 diabetes in her chart -Denies a history of this -hemoglobin A1c 5.7 Monitor glucose Status: Acute Additional A&P Information Hypokalemia: Replaced. Attestations Medical Necessity Statement*: Continue admission for assessment management of lower extremity infection, improving sepsis, iliopsoas fluid collection/hematoma in the setting of antiplatelet medication. A number of above comorbidities. Coding Level of Care Code Acute Financial Services Professional for Chg Fwd Diagnoses Bilateral lower leg cellulitis L03.116; L03.115 Hematoma of right iliopsoas muscle S70.11XA Acute kidney injury superimposed on CKD N17.9; N18.9 Acute dehydration E86.0 Viral gastroenteritis A08.4 Abrasion of scalp S00.01XA Encounter type: initial encounter Contusion of face S00.83XA Encounter type: initial encounter Fall W19.XXXA Encounter type: initial encounter 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
[2020-08-14 16:54] LABS: Glucose Point of Care 229 mg/dL (70-110)
[2020-08-14] MEDS: cyclobenzaprine 10 mg Tablet 5 MG PO (18:09)
[2020-08-14 20:37] LABS: Glucose Point of Care 153 mg/dL (70-110)
[2020-08-14] MEDS: atorvastatin 40 mg Tablet 20 MG PO (21:01)
[2020-08-15] VITALS (11 sets, daily range): BP systolic 103–124; BP diastolic 63–74; PULSE 59–66; RESP 14–32; TEMP 36.7–37.1; O2SAT 91–98
[2020-08-15] MEDS: metroNIDAZOLE IV 500 MG/100 ML PREMIX 100 MG IV ×3 (01:28→16:29)
[2020-08-15] MEDS: gabapentin 100 mg Capsule PO ×3 (01:28→16:30)
[2020-08-15] MEDS: cyclobenzaprine 10 mg Tablet 5 MG PO ×2 (05:13→16:21)
[2020-08-15] MEDS: morphine 4 mg/mL SDV 1 mL 2 MG IVP ×3 (05:22→20:53)
[2020-08-15 06:02] LABS: Basophils # 0.1 10^3/uL (0.0-0.1); Basophils % 0.7 %; Eosinophils # 0.2 10^3/uL (0.0-0.8); Eosinophils % 1.8 %; Hematocrit 26.4 % (37.0-47.0); Hemoglobin 7.9 g/dL (11.5-15.3); Lymphocytes % 8.8 %; Mean Corpuscular HGB Conc 29.9 g/dL (30.0-36.0); Mean Corpuscular Hemoglobin 30.9 pg (28.0-34.0); Mean Corpuscular Volume 103.1 fL (81-99); Mean Platelet Volume 11.1 fL (7.4-10.4); Monocytes # 0.8 10^3/uL (0.2-0.9); Monocytes % 6.8 %; Neutrophils # 8.89 10^3/uL (1.8-7.7); Nucleated Red Blood Cells % 0.4 %; Platelet Count 360 10^3/cmm (130-400); Red Blood Count 2.56 10^6/uL (4.1-5.3); White Blood Count 11.1 10^3/uL (4.0-10.0)
[2020-08-15 06:27] LABS: Alanine Aminotransferase 27 U/L (0-33); Albumin Level 2.1 g/dL (3.5-5.2); Alkaline Phosphatase 112 IU/L (35-105); Aspartate Amino Transferase 45 U/L (0-32); Blood Urea Nitrogen 49 mg/dL (8-23); Calcium 8.9 mg/dL (8.5-10.5); Carbon Dioxide 27 mmol/L (22-29); Chloride 95 mmol/L (98-107); Globulin 4.1 g/dL (1.3-4.6); Glucose 122 mg/dL (65-115); Osmolality Calculated 292 mOsm/kg (285-295); Sodium 134 mmol/L (136-145); Total Bilirubin 0.3 mg/dL (0.15-1.2); Total Protein 6.2 g/dL (6.6-8.7)
[2020-08-15 06:56] LABS: Glucose Point of Care 116 mg/dL (70-110)
[2020-08-15 07:11] LABS: Anion Gap 15.2 (5-19); Potassium 3.2 mmol/L (3.5-5.1)
[2020-08-15] MEDS: duloxetine 30 mg Capsule PO (10:50)
[2020-08-15] MEDS: levothyroxine 88 mcg Tablet PO (10:50)
[2020-08-15] MEDS: metoprolol tartrate 50 mg Tablet PO ×2 (10:51→18:35)
[2020-08-15] MEDS: amiodarone 200 mg Tablet PO (10:51)
[2020-08-15] MEDS: aspirin 81 mg EC Tablet PO (10:51)
[2020-08-15] MEDS: pantoprazole DR 40 mg Tablet PO (10:52)
[2020-08-15] MEDS: collagenase oint 30 gm 1 APPLIC TOPICAL (10:54)
--- NOTE | 2020-08-15 16:26 | CTR_ITS ---
PROCEDURE INFORMATION: Exam: CT Thoracic Spine Without Contrast Exam date and time: 08/15/2020 5:59 PM Age: 69 years old Clinical indication: Pain in thoracic spine; Patient HX: C/O persistent back pain after a fall on 08/09/2020. ; Additional info: Pain after fall TECHNIQUE: Imaging protocol: Computed tomography images of the thoracic spine without contrast. Radiation optimization: All CT scans at this facility use at least one of these dose optimization techniques: automated exposure control; mA and/or kV adjustment per patient size (includes targeted exams where dose is matched to clinical indication); or iterative reconstruction. COMPARISON: No relevant prior studies available. RADIATION DOSE METRICS: Total DLP (mGy-cm): 1528.46 FINDINGS: Vertebrae: S-shaped scoliosis of the thoracolumbar spine. T1-T2: No significant disc protrusion. No severe spinal canal stenosis. No significant neural foraminal narrowing. T2-T3: No significant disc protrusion. No severe spinal canal stenosis. No significant neural foraminal narrowing. T3-T4: No significant disc protrusion. No severe spinal canal stenosis. No significant neural foraminal narrowing. T4-T5: No significant disc protrusion. No severe spinal canal stenosis. No significant neural foraminal narrowing. T5-T6: No significant disc protrusion. No severe spinal canal stenosis. No significant neural foraminal narrowing. T6-T7: No significant disc protrusion. No severe spinal canal stenosis. No significant neural foraminal narrowing. T7-T8: No significant disc protrusion. No severe spinal canal stenosis. No significant neural foraminal narrowing. T8-T9: No significant disc protrusion. No severe spinal canal stenosis. No significant neural foraminal narrowing. T9-T10: No significant disc protrusion. No severe spinal canal stenosis. No significant neural foraminal narrowing. T10-T11: No significant disc protrusion. No severe spinal canal stenosis. No significant neural foraminal narrowing. T11-T12: No significant disc protrusion. No severe spinal canal stenosis. No significant neural foraminal narrowing. T12-L1: No significant disc protrusion. No severe spinal canal stenosis. No significant neural foraminal narrowing. Other bones/joints: Sternotomy wires. Lungs: Bilateral dependent atelectasis versus infiltrate. CT/CT thoracic spin wo con* [id number] IMPRESSION: 1. Negative for fracture or dislocation 2. S-shaped scoliosis of the thoracolumbar spine. 3. Bilateral dependent atelectasis versus infiltrate. 4. Sternotomy wires. Radiation Dose CTDIVOL = (mGy): DLP = 1528.46 (mGy-cm)
--- NOTE | 2020-08-15 16:26 | XRR_ITS ---
PROCEDURE INFORMATION: Exam: XR Left Ribs Exam date and time: 08/15/2020 4:35 PM Age: 69 years old Clinical indication: Injury or trauma; Fall; Rib area, left side; Blunt trauma; Additional info: Pain in L side back after fall TECHNIQUE: Imaging protocol: XR Left ribs. Views: 2 views. COMPARISON: CR XR chest 1V portable [id number] 08/09/2020 5:09 PM FINDINGS: Bones/joints: Normal. Upper abdomen: Left diaphragmatic eventration. Soft tissues: Normal. XR/XR ribs LT 2V* [id number] IMPRESSION: Negative for fracture or dislocation.
--- NOTE | 2020-08-15 16:32 | CTR_ITS ---
PROCEDURE INFORMATION: Exam: CT Lumbar Spine Without Contrast Exam date and time: 08/15/2020 5:59 PM Age: 69 years old Clinical indication: Low back pain; Patient HX: C/O persistent back pain after a fall on 08/09/2020. ; Additional info: Pain after fall TECHNIQUE: Imaging protocol: Computed tomography images of the lumbar spine without contrast. Radiation optimization: All CT scans at this facility use at least one of these dose optimization techniques: automated exposure control; mA and/or kV adjustment per patient size (includes targeted exams where dose is matched to clinical indication); or iterative reconstruction. COMPARISON: No relevant prior studies available. RADIATION DOSE METRICS: Total DLP (mGy-cm): 1973. FINDINGS: Vertebrae: Lumbar spine levoscoliosis. L1-L2: No significant disc protrusion. No severe spinal canal stenosis. No significant neural foraminal narrowing. L2-L3: No significant disc protrusion. No spinal canal stenosis. No neural foraminal narrowing. L3-L4: No significant disc protrusion. No severe spinal canal stenosis. No significant neural foraminal narrowing. L4-L5: L4-L5 bilobed posterior disc bulge with [id number] bilateral foraminal narrowing. L5-S1: L5/S1 bilobed posterior disc bulge with moderate bilateral foraminal narrowing. Soft tissues: Unremarkable. CT/CT lumbar spine wo con* [id number] IMPRESSION: 1. Lumbar spine levoscoliosis. 2. L4-L5 bilobed posterior disc bulge with [id number] bilateral foraminal narrowing. 3. L5/S1 bilobed posterior disc bulge with moderate bilateral foraminal narrowing. Radiation Dose CTDIVOL = (mGy): DLP = 1973. (mGy-cm)
[2020-08-15 17:16] LABS: Glucose Point of Care 118 mg/dL (70-110)
[2020-08-15] MEDS: HYDROcodone-acetaminophen 5-325 mg Tablet 1 TAB PO (18:34)
--- NOTE | 2020-08-15 21:08 | PM.PN ---
Subjective Subjective: Interval history: Today she feels she is doing a little bit better, however, is having pain with deep breaths in her mid back to the left of the midline. Vitals/I&O/Wt Last Vital Signs Temp 98.0 F 08/15/20 20:00 Pulse 60 08/15/20 20:00 Resp 18 08/15/20 20:53 BP 103/63 08/15/20 20:00 Pulse Ox 97 08/15/20 20:00 08/15/20 08/15/20 08/15/20 06:59 14:59 22:59 Intake Total 240 / 1060 120 / 120 440 / 560 Output Total 400 / 400 600 / 600 Balance -160 / 660 120 / 120 -160 / -40 Physical Exam Const: COMMON NORMALS: no acute distress and patient oriented x3 HENMT: COMMON NORMALS: oropharynx normal Neck/C-Spine: COMMON NORMALS: no JVD Resp: COMMON NORMALS: normal respiratory effort and clear to auscultation bilaterally AUSCULTATION: clear to auscultation bilaterally Cardio: COMMON NORMALS: no JVD, regular rhythm, S1 normal heart sound present, S2 normal heart sound present and No murmurs present (Cardio) RHYTHM: regular rhythm HEART SOUNDS: S1 normal heart sound present and S2 normal heart sound present GI: COMMON NORMALS: Normal to inspection, nondistended, normoactive bowel sounds present, Soft to palpation and non-tender PALPATION: Yes Soft to palpation Back/Pelvis: OTHER: Some tenderness on palpation of the mid to lower back in the left side over the rib cage. No swelling, erythema or warmth. Extremity: COMMON NORMALS: no joint enlargement and no pedal edema OTHER: No new symptoms in right hip. No swelling erythema. No tenderness on palpation. Lower extremity wounds covered by dressing, deep debridement of medial posterior and lateral aspects of the right calf, smaller wound on left lower leg. Neuro: COMMON NORMALS: patient oriented x3 and moves all extremities Skin: COMMON NORMALS: no rashes or lesions noted GENERAL SKIN EXAM: no rashes or lesions noted Data : 08/15/20 05:45 08/15/20 05:45 Micro: Microbiology 08/12/20 16:35 Gram Stain - Final Leg - Right Tissue Culture - Preliminary Strep pyogenes (grp a) 08/10/20 00:51 Blood Culture - Final Blood NO GROWTH AFTER 5 DAYS 08/10/20 00:45 Blood Culture - Final Blood NO GROWTH AFTER 5 DAYS A&P Assessment and plan (1) Bilateral lower leg cellulitis: Continuing to improve. Subjectively she is starting to feel better. Wound culture with Proteus mirabilis from 08/10 prior to debridement. Strep pyogenes growing from wound on the left. With iliopsoas hematoma, but as discussed with her and her daughter cannot entirely exclude possible focus of infection, although probably less likely. Discussed with surgery. At this time continue IV antibiotics. Consider additional reevaluation by CT to exclude any enlargement. Today she is also complaining of pain in her back, to the left of the midline, in the mid to lower back. Assess CT thoracic lumbar spine, rib series. Appears to have a disc bulge, no suggestion of other fluid collections. Bilateral lower extremity wounds status post debridement of necrotic tissue 08/12, larger ones on the right, small wound on the left lower extremity. On the right deeper wound laterally, medially, and smaller posteriorly down to subcutaneous fat/muscle tissue. Some small areas of necrosis/sloughing in shallower places where she did not have debridement. Per discussion with surgery her wounds are satisfactory at this time. Noted bogginess on the right heel had been examined by surgery and probed intraoperatively. Leukocytosis continues to decrease. Afebrile. Due to extent of the wounds continue IV antibiotics at this time. Discussed with nursing staff, and they taught daughter to change dressings during the visit today. History of MRSA growing from wound in the chest, which has since healed. Discussed also with cardiology who reviewed her images including duplex ultrasound and prior CTA done with aorta runoff, for now continue medical treatment, and consider additional outpatient assessment for intervention. Suggestion of moderate peripheral arterial disease on arterial duplex at the end of July. Venous duplex negative for DVT. Her wounds do not appear arterial. Looks more like chronic venous insufficiency, but not say that arterial insufficiency may not be contributing. At this time more involved assessment risks would outweigh the benefits given renal failure. May be reassessed if clinically encounters difficulties with wound healing. Dopplerable pulses. Feet are warm/perfused. Should follow-up with cardiology in office with regards to arrangements for additional PAD assessment and possibly intervention if needed. A1c looks ok. Status: Acute (2) Hematoma of right iliopsoas muscle: Fluid collection iliopsoas, discussed with her and her daughter most probably hematoma after fall, but we cannot 100% exclude other cause, possibly infection. Recurrent muscle cramps, persistent pain in lower back/right hip. Assessed by CT. Noted heterogenous density collection within the right iliopsoas muscle. Probable strain of the right iliopsoas with probable intramuscular hematoma of 3.9 x 2.2 cm in size. Reported she had had quite a good fall prior to admission. Has had no bacteremia. No staphylococcal infection noted in cultures. Suspicion for possible abscess is for now low but consider keeping on differential especially in depending on clinical progress. We have discontinued anticoagulation. Holding Plavix. For now continue low-dose aspirin. Will need to monitor. For DVT prophylaxis for now only SCD on one arm if can tolerate (cannot place on legs due to wounds). Will need to be reassessed to exclude expansion. Daughter is okay with cautious use of muscle relaxant. Status: Acute (3) Acute kidney injury superimposed on CKD: -EDMUNDO on CKD. Improved. Renal function appears to be close to baseline. Discussed with her daughter again. At this time is not requiring hemodialysis, and at this time would avoid placing dialysis catheter due to ongoing skin infection and improving sepsis. Daughter is supportive of this assessment and plan. Continue to monitor renal function. Follow-up with nephrology after discharge. Prescription with her primary provider she was considered nearing hemodialysis. Follows up with Dr. Lucero in office. Diarrhea has resolved. At this time we are holding Bumex, metolazone. For now we will hold off any additional IV hydration. -CT scan of the abdomen, no hydronephrosis, no nephrolithiasis, UA negative for UTI Status: Acute (4) Acute dehydration: Hold additional IV fluids for now. The area has resolved. Monitor volume status, REAGAN. Avoid fluid overload. Status: Acute (5) Viral gastroenteritis: This appears to have improved. Stool studies were ordered but could not be collected as diarrhea is resolved so far. Negative COVID 19 PCR. Status: Acute (6) Abrasion of scalp: Appears to be healing well. Monitor. Status: Acute Qualifiers: Encounter type: initial encounter Qualified Code(s): S00.01XA - Abrasion of scalp, initial encounter (7) Contusion of face: Status: Acute Qualifiers: Encounter type: initial encounter Qualified Code(s): S00.83XA - Contusion of other part of head, initial encounter (8) Fall: Iliopsoas fluid collection as above. Very deconditioned, needing further physical therapy. Continue to encourage her to work with therapy. She had considered going to detention facility, but only to [place], and does not appear that there are beds available there. Per discussion with daughter she had taken off work to be able to care for her mother and so will be with her at all times, reducing chance of her falling down or otherwise injuring herself accidentally. Continue treatment of underlying infection. Sepsis resolving. -This fall is a component of mechanical and nonmechanical features -Has history of TIA, was previously on aspirin, Plavix, statin. Currently Plavix on hold due to iliopsoas fluid collection possible hematoma. Carotid Doppler with some right-sided stenosis 50-69%, moderate atheromatous plaque right carotid bulb/ICA, left ICA less than 50% stenosis, moderate atheromatous plaque left carotid bulb/ICA, Cardiac echocardiogram with normal ejection fraction, grade 1 diastolic dysfunction. Moderate mitral valve regurgitation. Continue to work with PT. 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 Discussed with interventional cardiology who reviewed her prior imaging doing arterial duplex, [place], and past CT a aorta with runoff. -arterial us on 07/2020 showed: Abnormal resting TBIs bilaterally, suggestive of moderate peripheral arterial disease. Moderate diffuse heterogeneous plaques in the superficial femoral arteries bilaterally For now has been empirically on heparin drip due to concern for peripheral arterial disease, nonhealing ulcers. There was concern for wrist pain, although is not having any today. However, also with poor renal function for additional evaluation or intervention. As discussed with cardiology at this time continue medical therapy, follow-up after acute episode of illness for cautious consideration of additional intervention. Continue ASA, plavix. Status: Acute (11) Atrial fibrillation: -Not on anticoagulation?, Seems as if she had postoperative atrial fibrillation after CABG Fall prior to admission.-Continue amiodarone May have difficult time anticoagulation if persistent fall risk. Currently anticoagulation on hold due to iliopsoas fluid collection suspected hematoma. Status: Acute (12) Hypothyroid: -Dr. Lombardi stopped liothyronine 5 mcg once daily -levothyroxine dose was reduced down to 88 mcg Status: Chronic Qualifiers: Hypothyroidism type: acquired Qualified Code(s): E03.9 - Hypothyroidism, unspecified (13) Leg swelling: -Hold metolazone and Bumex Status: Acute (14) Benign essential hypertension with target blood pressure below 140/90: Status: Acute (15) Type 2 diabetes mellitus: -Patient has type 2 diabetes in her chart -Denies a history of this -hemoglobin A1c 5.7 Monitor glucose Status: Acute Additional A&P Information Hypokalemia: Replaced. Attestations Medical Necessity Statement*: Continue admission for assessment of wound infection left lower extremity, iliopsoas fluid collection, possible hematoma, in the setting of CKD, CAD, PAD, DM 2 and a number of other comorbidities. Disposition planning. Coding Level of Care Code Acute Postal Inspector for [facility] Fwd Diagnoses Bilateral lower leg cellulitis L03.116; L03.115 Hematoma of right iliopsoas muscle S70.11XA Acute kidney injury superimposed on CKD N17.9; N18.9 Acute dehydration E86.0 Viral gastroenteritis A08.4 Abrasion of scalp S00.01XA Encounter type: initial encounter Contusion of face S00.83XA Encounter type: initial encounter Fall W19.XXXA Encounter type: initial encounter 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
[2020-08-15 21:34] LABS: Glucose Point of Care 188 mg/dL (70-110)
[2020-08-15] MEDS: atorvastatin 40 mg Tablet 20 MG PO (21:37)
[2020-08-16] VITALS (8 sets, daily range): BP systolic 97–151; BP diastolic 56–91; PULSE 59–76; RESP 15–20; TEMP 36.4–36.8; O2SAT 96–98
[2020-08-16] MEDS: gabapentin 100 mg Capsule PO ×3 (00:12→16:50)
[2020-08-16] MEDS: cefTRIAXone 1,000 MG in sodium chloride 0.9% (plus) 50 ML 100 MG IV (00:12)
[2020-08-16] MEDS: metroNIDAZOLE IV 500 MG/100 ML PREMIX 100 MG IV ×3 (01:09→17:30)
[2020-08-16] MEDS: HYDROcodone-acetaminophen 5-325 mg Tablet 1 TAB PO ×3 (02:36→16:50)
[2020-08-16 05:19] LABS: Glucose Point of Care 118 mg/dL (70-110)
[2020-08-16 05:45] LABS: Basophils # 0.1 10^3/uL (0.0-0.1); Basophils % 0.6 %; Eosinophils # 0.2 10^3/uL (0.0-0.8); Hematocrit 24.6 % (37.0-47.0); Hemoglobin 7.5 g/dL (11.5-15.3); Lymphocytes # 1.1 10^3/uL (0.8-4.8); Mean Corpuscular HGB Conc 30.5 g/dL (30.0-36.0); Mean Corpuscular Hemoglobin 30.7 pg (28.0-34.0); Mean Corpuscular Volume 100.8 fL (81-99); Mean Platelet Volume 11.5 fL (7.4-10.4); Monocytes # 0.7 10^3/uL (0.2-0.9); Monocytes % 6.8 %; Neutrophils % 77.2 %; Nucleated Red Blood Cells % 0.3 %; Platelet Count 315 10^3/cmm (130-400); Red Blood Count 2.44 10^6/uL (4.1-5.3)
[2020-08-16 06:28] LABS: Alanine Aminotransferase 22 U/L (0-33); Albumin Level 2.2 g/dL (3.5-5.2); Alkaline Phosphatase 101 IU/L (35-105); Anion Gap 13.2 (5-19); Aspartate Amino Transferase 34 U/L (0-32); Blood Urea Nitrogen 40 mg/dL (8-23); Calcium 8.3 mg/dL (8.5-10.5); Carbon Dioxide 30 mmol/L (22-29); Chloride 98 mmol/L (98-107); Globulin 3.7 g/dL (1.3-4.6); Glucose 111 mg/dL (65-115); Osmolality Calculated 296 mOsm/kg (285-295); Potassium 3.2 mmol/L (3.5-5.1); Sodium 138 mmol/L (136-145); Total Bilirubin 0.3 mg/dL (0.15-1.2); Total Protein 5.9 g/dL (6.6-8.7)
[2020-08-16 06:42] LABS: Glucose Point of Care 115 mg/dL (70-110)
[2020-08-16] MEDS: pantoprazole DR 40 mg Tablet PO (10:48)
[2020-08-16] MEDS: levothyroxine 88 mcg Tablet PO (10:48)
[2020-08-16] MEDS: aspirin 81 mg EC Tablet PO (10:49)
[2020-08-16] MEDS: duloxetine 30 mg Capsule PO (10:49)
[2020-08-16] MEDS: collagenase oint 30 gm 1 APPLIC TOPICAL (10:49)
[2020-08-16] MEDS: amiodarone 200 mg Tablet PO (10:49)
[2020-08-16] MEDS: metoprolol tartrate 50 mg Tablet PO ×2 (10:54→17:31)
--- NOTE | 2020-08-16 10:54 | PC.SOCIAL ---
IMM Updated Updated pt on Pg 2 IMM. No questions voiced. Provided pt a copy. Signed, dated, & timed copy in chart.
[2020-08-16] MEDS: cyclobenzaprine 10 mg Tablet 5 MG PO (11:05)
[2020-08-16 11:15] LABS: Glucose Point of Care 144 mg/dL (70-110)
[2020-08-16] MEDS: morphine 4 mg/mL SDV 1 mL 2 MG IVP (15:09)
--- NOTE | 2020-08-16 17:10 | P.PN_ITS ---
Subjective Subjective: Interval history: complains of abdominal and leg pain B/L, margins of wound appear slightly darkened, no gross discharge Medications: Reviewed: Yes Vitals/I&O/Wt Last Vital Signs Temp 97.6 F 08/16/20 15:25 Pulse 76 08/16/20 15:25 Resp 16 08/16/20 15:25 BP 151/91 08/16/20 15:25 Pulse Ox 98 08/16/20 15:25 08/16/20 08/16/20 08/16/20 06:59 14:59 22:59 Intake Total 100 / 660 300 / 300 Output Total 400 / 1000 Balance -300 / -340 300 / 300 Data : 08/16/20 05:07 08/16/20 05:07 Micro: Microbiology 08/12/20 16:35 Gram Stain - Final Leg - Right Tissue Culture - Final Methicillin Resis Staph Aureus Strep pyogenes (grp a) A&P Assessment and plan (1) Bilateral lower leg cellulitis: Continuing to improve. Subjectively she is starting to feel better. Wound culture with Proteus mirabilis from 08/10 prior to debridement. Strep pyogenes growing from wound on the left. Continue empiric iv abx Bilateral lower extremity wounds status post debridement of necrotic tissue 08/12, larger ones on the right, small wound on the left lower extremity. On the right deeper wound laterally, medially, and smaller posteriorly down to subcutaneous fat/muscle tissue. Some small areas of necrosis/sloughing in shallower places where she did not have debridement. Per discussion with surgery her wounds are satisfactory at this time. Margins do appear to be necrotic and there is concern for underlying arterial insufficiency as detected on LE arterial duplex from July 2020 and old CTA. Discussed also with cardiology who reviewed her images including duplex ultrasound and prior CTA done with aorta runoff, for now continue medical treatment, and consider additional outpatient assessment for intervention . Will eventually need wound vac placement after follow up with wound care center down the line once infection resolves. May benefit additionally from vascular interventions. Leukocytosis continues to decrease. Afebrile. Due to extent of the wounds continue IV antibiotics at this time. Discussed with nursing staff, and they taught daughter to change dressings during the visit. This will continue at home. DM currently well controlled Status: Acute (2) Hematoma of right iliopsoas muscle: Fluid collection iliopsoas, discussed with her and her daughter most probably hematoma after fall, but we cannot 100% exclude other cause, possibly infection. Recurrent muscle cramps, persistent pain in lower back/right hip. Probable strain of the right iliopsoas with probable intramuscular hematoma of 3.9 x 2.2 cm in size. We have discontinued anticoagulation. Holding Plavix. For now continue low- dose aspirin. Will need to monitor. For DVT prophylaxis for now only SCD on one arm if can tolerate (cannot place on legs due to wounds). Will need to be reassessed to exclude expansion. Status: Acute (3) Acute kidney injury superimposed on CKD: -EDMUNDO on CKD. Improved. Renal function appears to be close to baseline. Discussed with her daughter again. At this time is not requiring hemodialysis, and at this time would avoid placing dialysis catheter due to ongoing skin infection and improving sepsis. Daughter is supportive of this assessment and plan. Continue to monitor renal function. Follow-up with nephrology after discharge. Prescription with her primary provider she was considered nearing hemodialysis. Follows up with Dr. Lucero in office. Diarrhea has resolved. At this time we are holding Bumex, metolazone. Clinically euvolemic. Status: Acute (4) Acute dehydration: Hold additional IV fluids for now. The area has resolved. Monitor volume status, REAGNA. Avoid fluid overload. Status: Acute (5) Viral gastroenteritis: This appears to have improved. Stool studies were ordered but could not be collected as diarrhea is resolved so far. Negative COVID 19 PCR. Status: Acute (6) Abrasion of scalp: Appears to be healing well. Monitor. Status: Inactive Qualifiers: Encounter type: initial encounter Qualified Code(s): S00.01XA - Abrasion of scalp, initial encounter (7) Contusion of face: Status: Inactive Qualifiers: Encounter type: initial encounter Qualified Code(s): S00.83XA - Contusion of other part of head, initial encounter (8) Fall: Iliopsoas fluid collection as above. Very deconditioned, needing further physical therapy. Continue to encourage her to work with therapy. She had considered going to care home facility, but only to [place], and does not appear that there are beds available there. Per discussion with daughter she had taken off work to be able to care for her mother and so will be with her at all times, reducing chance of her falling down or otherwise injuring herself accidentally. At this time not agreeable to going to any other facilities. -Has history of TIA, was previously on aspirin, Plavix, statin. Currently Plavix on hold due to iliopsoas fluid collection possible hematoma. Carotid Doppler with some right-sided stenosis 50-69%, moderate atheromatous plaque right carotid bulb/ICA, left ICA less than 50% stenosis, moderate atheromatous plaque left carotid bulb/ICA, Cardiac echocardiogram with normal ejection fraction, grade 1 diastolic dysfunction. Moderate mitral valve regurgitation. Continue to work with PT. 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 Discussed with interventional cardiology who reviewed her prior imaging doing arterial duplex, [place], and past CT a aorta with runoff. -arterial us on 07/2020 showed: Abnormal resting TBIs bilaterally, suggestive of moderate peripheral arterial disease. Moderate diffuse heterogeneous plaques in the superficial femoral arteries bilaterally For now has been empirically on heparin drip due to concern for peripheral julio rial disease, nonhealing ulcers. There was concern for wrist pain, although is not having any today. However, also with poor renal function for additional evaluation or intervention. As discussed with cardiology at this time continue medical therapy, follow-up after acute episode of illness for cautious consideration of additional intervention. Continue ASA, plavix. Status: Acute (11) Atrial fibrillation: -Not on anticoagulation?, Seems as if she had postoperative atrial fibrillation after CABG Fall prior to admission.-Continue amiodarone May have difficult time anticoagulation if persistent fall risk. Currently anticoagulation on hold due to iliopsoas fluid collection suspected hematoma. Status: Acute (12) Hypothyroid: -Dr. Lombardi stopped liothyronine 5 mcg once daily -levothyroxine dose was reduced down to 88 mcg Status: Chronic Qualifiers: Hypothyroidism type: acquired Qualified Code(s): E03.9 - Hypothyroidism, unspecified (13) Leg swelling: -Hold metolazone and Bumex Status: Acute (14) Benign essential hypertension with target blood pressure below 140/90: Status: Acute (15) Type 2 diabetes mellitus: -Patient has type 2 diabetes in her chart -Denies a history of this -hemoglobin A1c 5.7 Monitor glucose Status: Acute Additional A&P Information Hypokalemia: Replaced. Attestations Medical Necessity Statement*: ongoing wound care, need for Iv antibiotics, anticipate discharge in the upcoming 24-48 hrs if wounds continue to imrpove Coding Level of Care Code Acute Land Le[employer] Information Clerk for [facility] Fwd Diagnoses Bilateral lower leg cellulitis L03.116; L03.115 Hematoma of right iliopsoas muscle S70.11XA Acute kidney injury superimposed on CKD N17.9; N18.9 Acute dehydration E86.0 Viral gastroenteritis A08.4 Abrasion of scalp S00.01XA Encounter type: initial encounter Contusion of face S00.83XA Encounter type: initial encounter Fall W19.XXXA Encounter type: initial encounter 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
[2020-08-16 18:58] LABS: Glucose Point of Care 125 mg/dL (70-110)
[2020-08-16 21:02] LABS: Glucose Point of Care 107 mg/dL (70-110)
[2020-08-16] MEDS: atorvastatin 40 mg Tablet 20 MG PO (22:22)
[2020-08-17] VITALS (10 sets, daily range): BP systolic 108–118; BP diastolic 63–69; PULSE 61–96; RESP 16–19; TEMP 36.6–37; O2SAT 93–98
[2020-08-17] MEDS: morphine 4 mg/mL SDV 1 mL 2 MG IVP (00:41)
[2020-08-17] MEDS: metroNIDAZOLE IV 500 MG/100 ML PREMIX 100 MG IV ×3 (00:47→16:35)
[2020-08-17] MEDS: cefTRIAXone 1,000 MG in sodium chloride 0.9% (plus) 50 ML 100 MG IV (00:47)
[2020-08-17] MEDS: gabapentin 100 mg Capsule PO ×3 (00:48→16:35)
[2020-08-17] MEDS: HYDROcodone-acetaminophen 5-325 mg Tablet 1 TAB PO ×2 (05:18→10:51)
[2020-08-17 06:47] LABS: Glucose Point of Care 99 mg/dL (70-110)
[2020-08-17] MEDS: metoprolol tartrate 50 mg Tablet PO ×2 (07:28→16:35)
[2020-08-17] MEDS: duloxetine 30 mg Capsule PO (07:28)
[2020-08-17] MEDS: levothyroxine 88 mcg Tablet PO (07:28)
[2020-08-17] MEDS: amiodarone 200 mg Tablet PO (07:28)
[2020-08-17] MEDS: aspirin 81 mg EC Tablet PO (07:28)
[2020-08-17] MEDS: pantoprazole DR 40 mg Tablet PO (07:28)
[2020-08-17] MEDS: collagenase oint 30 gm 1 APPLIC TOPICAL (07:29)
[2020-08-17 07:31] LABS: Basophils # 0.1 10^3/uL (0.0-0.1); Basophils % 0.7 %; Eosinophils # 0.2 10^3/uL (0.0-0.8); Eosinophils % 1.5 %; Hematocrit 28.3 % (37.0-47.0); Hemoglobin 8.2 g/dL (11.5-15.3); Lymphocytes # 0.9 10^3/uL (0.8-4.8); Lymphocytes % 7.5 %; Mean Corpuscular Hemoglobin 30.4 pg (28.0-34.0); Mean Corpuscular Volume 104.8 fL (81-99); Monocytes # 0.7 10^3/uL (0.2-0.9); Monocytes % 5.8 %; Neutrophils # 9.75 10^3/uL (1.8-7.7); Neutrophils % 82.6 %; Nucleated Red Blood Cells % 0.2 %; Platelet Count 363 10^3/cmm (130-400); Red Cell Distribution Width 15.2 % (12.1-15.1); White Blood Count 11.8 10^3/uL (4.0-10.0)
[2020-08-17 08:50] LABS: Alanine Aminotransferase 21 U/L (0-33); Albumin Level 2.2 g/dL (3.5-5.2); Alkaline Phosphatase 100 IU/L (35-105); Aspartate Amino Transferase 31 U/L (0-32); Blood Urea Nitrogen 36 mg/dL (8-23); Calcium 8.6 mg/dL (8.5-10.5); Carbon Dioxide 32 mmol/L (22-29); Chloride 95 mmol/L (98-107); Globulin 4.2 g/dL (1.3-4.6); Glucose 106 mg/dL (65-115); Osmolality Calculated 289 mOsm/kg (285-295); Sodium 135 mmol/L (136-145); Total Bilirubin 0.3 mg/dL (0.15-1.2); Total Protein 6.4 g/dL (6.6-8.7)
[2020-08-17] MEDS: vancomycin 1,000 MG in sodium chloride 0.9% 250 ML 250 MG IV (10:45)
[2020-08-17 11:49] LABS: Glucose Point of Care 127 mg/dL (70-110)
[2020-08-17] MEDS: potassium chloride ER 10 mEq Tablet 40 MEQ PO (13:49)
--- NOTE | 2020-08-17 17:13 | P.PN_ITS ---
Subjective Subjective: Interval history: no acute overnight events except ongoing continuing pain over lower extremities Medications: Reviewed: Yes Vitals/I&O/Wt Last Vital Signs Temp 97.9 F 08/17/20 16:00 Pulse 96 08/17/20 16:00 Resp 16 08/17/20 16:00 BP 114/67 08/17/20 16:00 Pulse Ox 93 08/17/20 15:19 08/17/20 08/17/20 08/17/20 06:59 14:59 22:59 Intake Total 100 / 840 540 / 540 Output Total 900 / 900 250 / 250 Balance -800 / -60 540 / 540 -250 / 290 Data : 08/17/20 07:24 08/17/20 07:24 A&P Assessment and plan (1) Bilateral lower leg cellulitis: Continuing to improve. Subjectively she is starting to feel better. Wound culture with Proteus mirabilis from 08/10 prior to debridement. Strep pyogenes growing from wound on the left. Continue empiric iv abx Bilateral lower extremity wounds status post debridement of necrotic tissue 08/12, larger ones on the right, small wound on the left lower extremity. On the right deeper wound laterally, medially, and smaller posteriorly down to subcutaneous fat/muscle tissue. Some small areas of necrosis/sloughing in shallower places where she did not have debridement. Per discussion with surgery her wounds are satisfactory at this time. Margins do appear to be necrotic and there is concern for underlying arterial insufficiency as detected on LE arterial duplex from July 2020 and old CTA. Discussed also with cardiology who reviewed her images including duplex ultrasound and prior CTA done with aorta runoff, for now continue medical treatment, and consider additional outpatient assessment for intervention . Will eventually need wound vac placement after follow up with wound care center down the line once infection resolves. May benefit additionally from vascular interventions. Leukocytosis continues to decrease. Afebrile. Due to extent of the wounds continue IV antibiotics at this time. Discussed with nursing staff, and they taught daughter to change dressings during the visit. This will continue at home. DM currently well controlled Status: Acute (2) Hematoma of right iliopsoas muscle: Fluid collection iliopsoas, discussed with her and her daughter most probably hematoma after fall, but we cannot 100% exclude other cause, possibly infection. Recurrent muscle cramps, persistent pain in lower back/right hip. Probable strain of the right iliopsoas with probable intramuscular hematoma of 3.9 x 2.2 cm in size. We have discontinued anticoagulation. Holding Plavix. For now continue low- dose aspirin. Will need to monitor. For DVT prophylaxis for now only SCD on one arm if can tolerate (cannot place on legs due to wounds). Will need to be reassessed to exclude expansion. Status: Acute (3) Acute kidney injury superimposed on CKD: -EDMUNDO on CKD. Improved. Renal function appears to be close to baseline. Discussed with her daughter again. At this time is not requiring hemodialysis, and at this time would avoid placing dialysis catheter due to ongoing skin infection and improving sepsis. Daughter is supportive of this assessment and plan. Continue to monitor renal function. Follow-up with nephrology after discharge. Prescription with her primary provider she was considered nearing hemodialysis. Follows up with Dr. Lucero in office. Diarrhea has resolved. At this time we are holding Bumex, metolazone. Clinically euvolemic. Status: Acute (4) Acute dehydration: Hold additional IV fluids for now. The area has resolved. Monitor volume status, REAGAN. Avoid fluid overload. Status: Acute (5) Viral gastroenteritis: This appears to have improved. Stool studies were ordered but could not be collected as diarrhea is resolved so far. Negative COVID 19 PCR. Status: Acute (6) Abrasion of scalp: Appears to be healing well. Monitor. Status: Inactive Qualifiers: Encounter type: initial encounter Qualified Code(s): S00.01XA - Abrasion of scalp, initial encounter (7) Contusion of face: Status: Inactive Qualifiers: Encounter type: initial encounter Qualified Code(s): S00.83XA - Contusion of other part of head, initial encounter (8) Fall: Iliopsoas fluid collection as above. Very deconditioned, needing further physical therapy. Continue to encourage her to work with therapy. She had considered going to senior living facility, but only to [place], and does not appear that there are beds available there. Per discussion with daughter she had taken off work to be able to care for her mother and so will be with her at all times, reducing chance of her falling down or otherwise injuring herself accidentally. At this time not agreeable to going to any other facilities. -Has history of TIA, was previously on aspirin, Plavix, statin. Currently Plavix on hold due to iliopsoas fluid collection possible hematoma. Carotid Doppler with some right-sided stenosis 50-69%, moderate atheromatous p laque right carotid bulb/ICA, left ICA less than 50% stenosis, moderate atheromatous plaque left carotid bulb/ICA, Cardiac echocardiogram with normal ejection fraction, grade 1 diastolic dysfunction. Moderate mitral valve regurgitation. Continue to work with PT. 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 Discussed with interventional cardiology who reviewed her prior imaging doing arterial duplex, MODESTA, and past CT a aorta with runoff. -arterial us on 07/2020 showed: Abnormal resting TBIs bilaterally, suggestive of moderate peripheral arterial disease. Moderate diffuse heterogeneous plaques in the superficial femoral arteries bilaterally For now has been empirically on heparin drip due to concern for peripheral arterial disease, nonhealing ulcers. There was concern for wrist pain, although is not having any today. However, also with poor renal function for additional evaluation or intervention. As discussed with cardiology at this time continue medical therapy, follow-up after acute episode of illness for cautious consideration of additional intervention. Continue ASA, plavix. Status: Acute (11) Atrial fibrillation: -Not on anticoagulation?, Seems as if she had postoperative atrial fibrillation after CABG Fall prior to admission.-Continue amiodarone May have difficult time anticoagulation if persistent fall risk. Currently anticoagulation on hold due to iliopsoas fluid collection suspected hematoma. Status: Acute (12) Hypothyroid: -Dr. Lombardi stopped liothyronine 5 mcg once daily -levothyroxine dose was reduced down to 88 mcg Status: Chronic Qualifiers: Hypothyroidism type: acquired Qualified Code(s): E03.9 - Hypothyroidism, unspecified (13) Leg swelling: -Hold metolazone and Bumex Status: Acute (14) Benign essential hypertension with target blood pressure below 140/90: Status: Acute (15) Type 2 diabetes mellitus: -Patient has type 2 diabetes in her chart -Denies a history of this -hemoglobin A1c 5.7 Monitor glucose Status: Acute Additional A&P Information Hypokalemia: Replaced. DIspo: planned for discharge to home, initially planned today, however daughter states she is having special equipment delivered tomorrow by way of lift, wheelchair, hospital bed and will be ready to take patient home then Attestations Medical Necessity Statement*: planned for discharge in the upcoming 24 hrs Coding Level of Care Code Acute Contribution Solicitor for Chg Fwd Diagnoses Bilateral lower leg cellulitis L03.116; L03.115 Hematoma of right iliopsoas muscle S70.11XA Acute kidney injury superimposed on CKD N17.9; N18.9 Acute dehydration E86.0 Viral gastroenteritis A08.4 Abrasion of scalp S00.01XA Encounter type: initial encounter Contusion of face S00.83XA Encounter type: initial encounter Fall W19.XXXA Encounter type: initial encounter 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
[2020-08-17] MEDS: atorvastatin 40 mg Tablet 20 MG PO (20:39)
[2020-08-17 20:52] LABS: Glucose Point of Care 132 mg/dL (70-110)
[2020-08-17 20:52] LABS: Glucose Point of Care 192 mg/dL (70-110)
[2020-08-18] VITALS (7 sets, daily range): BP systolic 113–123; BP diastolic 65–67; PULSE 62–69; RESP 18; TEMP 36.8–36.9; O2SAT 95–97
[2020-08-18] MEDS: cefTRIAXone 1,000 MG in sodium chloride 0.9% (plus) 50 ML 100 MG IV (00:26)
[2020-08-18] MEDS: morphine 4 mg/mL SDV 1 mL 2 MG IVP ×2 (00:26→06:38)
[2020-08-18] MEDS: gabapentin 100 mg Capsule PO ×2 (00:33→07:37)
[2020-08-18] MEDS: metroNIDAZOLE IV 500 MG/100 ML PREMIX 100 MG IV ×2 (01:02→07:38)
[2020-08-18] MEDS: HYDROcodone-acetaminophen 5-325 mg Tablet 1 TAB PO (01:02)
[2020-08-18 04:03] LABS: Basophils # 0.1 10^3/uL (0.0-0.1); Basophils % 0.5 %; Eosinophils # 0.2 10^3/uL (0.0-0.8); Eosinophils % 1.2 %; Hematocrit 25.5 % (37.0-47.0); Hemoglobin 7.6 g/dL (11.5-15.3); Lymphocytes # 1.1 10^3/uL (0.8-4.8); Lymphocytes % 9.3 %; Mean Corpuscular HGB Conc 29.8 g/dL (30.0-36.0); Mean Corpuscular Hemoglobin 30.5 pg (28.0-34.0); Mean Corpuscular Volume 102.4 fL (81-99); Mean Platelet Volume 11.3 fL (7.4-10.4); Monocytes # 0.7 10^3/uL (0.2-0.9); Monocytes % 5.7 %; Neutrophils # 9.95 10^3/uL (1.8-7.7); Neutrophils % 81.7 %; Nucleated Red Blood Cells % 0 %; Platelet Count 372 10^3/cmm (130-400); Red Blood Count 2.49 10^6/uL (4.1-5.3); Red Cell Distribution Width 15.1 % (12.1-15.1); White Blood Count 12.2 10^3/uL (4.0-10.0)
[2020-08-18 04:29] LABS: Alanine Aminotransferase 18 U/L (0-33); Albumin Level 2.3 g/dL (3.5-5.2); Alkaline Phosphatase 90 IU/L (35-105); Anion Gap 11.5 (5-19); Aspartate Amino Transferase 26 U/L (0-32); Blood Urea Nitrogen 32 mg/dL (8-23); Calcium 8.4 mg/dL (8.5-10.5); Carbon Dioxide 30 mmol/L (22-29); Chloride 98 mmol/L (98-107); Globulin 3.8 g/dL (1.3-4.6); Glucose 101 mg/dL (65-115); Osmolality Calculated 289 mOsm/kg (285-295); Potassium 3.5 mmol/L (3.5-5.1); Sodium 136 mmol/L (136-145); Total Bilirubin 0.3 mg/dL (0.15-1.2); Total Protein 6.1 g/dL (6.6-8.7)
[2020-08-18 07:06] LABS: Glucose Point of Care 127 mg/dL (70-110)
[2020-08-18] MEDS: pantoprazole DR 40 mg Tablet PO (07:37)
[2020-08-18] MEDS: metoprolol tartrate 50 mg Tablet PO (07:37)
[2020-08-18] MEDS: duloxetine 30 mg Capsule PO (07:37)
[2020-08-18] MEDS: levothyroxine 88 mcg Tablet PO (07:37)
[2020-08-18] MEDS: aspirin 81 mg EC Tablet PO (07:37)
[2020-08-18] MEDS: amiodarone 200 mg Tablet PO (07:38)
[2020-08-18] MEDS: collagenase oint 30 gm 1 APPLIC TOPICAL (07:38)
[2020-08-18] MEDS: vancomycin 1,000 MG in sodium chloride 0.9% 250 ML 250 MG IV (10:17)
--- NOTE | 2020-08-18 10:33 | PC.SOCIAL ---
IMM Update Pg. 2 of IMM updated. Patient resting with eyes closed, so copy left at bedside.
[2020-08-18 11:08] LABS: Glucose Point of Care 139 mg/dL (70-110)
--- NOTE | 2020-08-18 12:24 | PM.DCS ---
Discharge Providers Date of Admission: 08/09/20 21:31 Date of Discharge: August 18, 2020 Attending Provider at Admission: Lb Chamorro MD Attending Provider at Discharge: Mandy Dias MD Primary Care Provider: Melina Weeks MD Diagnoses at Discharge Discharge Diagnosis (1) Bilateral lower leg cellulitis: Status: Acute (2) Hematoma of right iliopsoas muscle: Status: Acute (3) Acute kidney injury superimposed on CKD: Status: Acute (4) Acute dehydration: Status: Acute (5) Viral gastroenteritis: Status: Acute (6) Abrasion of scalp: Status: Inactive Qualifiers: Encounter type: initial encounter Qualified Code(s): S00.01XA - Abrasion of scalp, initial encounter (7) Contusion of face: Status: Inactive Qualifiers: Encounter type: initial encounter Qualified Code(s): S00.83XA - Contusion of other part of head, initial encounter (8) Fall: Status: Inactive Qualifiers: Encounter type: initial encounter Qualified Code(s): W19.XXXA - Unspecified fall, initial encounter (9) 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: Status: Acute Qualifiers: Associated angina: without angina Qualified Code(s): I25.810 - Atherosclerosis of coronary artery bypass graft(s) without angina pectoris (10) PAD (peripheral artery disease): Status: Acute (11) Atrial fibrillation: Status: Acute (12) Hypothyroid: Status: Chronic Qualifiers: Hypothyroidism type: acquired Qualified Code(s): E03.9 - Hypothyroidism, unspecified (13) Leg swelling: Status: Acute (14) Benign essential hypertension with target blood pressure below 140/90: Status: Acute (15) Type 2 diabetes mellitus: Status: Acute Reason for Visit Reason for Visit: FALL, CHEST PAIN Hospital Course Discharge Summary: Eliana Samuels is a 69 year old female with a past medical history of CABGX2 with history of wound dehiscence status post multiple debridements, wound VAC, postoperative atrial fibrillation on amiodarone, CKD, bilateral lower extremity edema on Bumex and metolazone, insulin-dependent type 2 diabetes mellitus, hypothyroidism on liothyronine and levothyroxine, who presented to [facility] on 08/09 with c/o lightheadedness and dizziness, followed by a fall, worsening LE chronic wounds s/p excisional debridement of necrotic skin on 08/13. Hospital course as noted below: # Chronic B/L LE ulcers with more acute worsening and surrounding cellulitis. s/p excisional debridement of necrotic skin on 08/[address] Burnett Received empiric antibiotic treatment with IV Zosyn and vancomycin while in the hospital. This is being transitioned to p.o. Augmentin and doxycycline on discharge. Wound cultures resulted with Streptococcus, Proteus and MRSA. #Sepsis present on admission is related to above, resolved at the time of discharge #Peripheral artery disease: Lower extremity duplex on with abnormal resting ABIs bilaterally suggestive of moderate peripheral artery disease. . Previously had a CTA with runoff in November 2019 which had shown multilevel atherosclerotic disease. Patient did not currently have any signs of impending gangrene or acute limb ischemia therefore further work-up including possibility of angiogram was deferred for outpatient follow-up with Dr. Gill. Additionally patient had suffered acute kidney injury with creatinine up to 3 during the course of admission therefore contrast administration was avoided in the absence of any emergent indications. She was continued on aspirin, Plavix needed to be held due to discovery of an iliopsoas hematoma, likely from her recent fall. Plavix has been held additionally on discharge at this time, to be followed up also with cardiology as an outpatient. #Iliopsoas hematoma on the right likely from recent fall. plavix on hold as above. Hb stabilized at 7.5. # Acute kidney injury superimposed on CKD: Cr at 3.2 upon admission, imroved to 1.1 on discharge by holding her diuretics. Patient remained clinically euvolemic during the course of her admission here. Additionally her blood pressure remained well within control off of her diuretics. Torsemide, Bumex, metolazone have all been held upon discharge. #Abrasion over the scalp and contusion of her face or both healing well. Patient was overall noted to be significantly deconditioned needing further physical therapy, however patient was finding it difficult to participate due to pain in her lower extremities. Placement at SNF was offered, however daughter preferred to have mom come back home. Her daughter is her current 24 x 7 caregiver. # A fib, on amiodarone, remained rate controlled during admission # hypothyroidism: levothyroxine dose adjusted from 100mcg dailt to 88mcg daily for TSH 0.09. Liothyronine also hels until follow up with PCP Patient is being discharged today return to her baseline state of health. She is encouraged to follow-up with the wound care clinic for ongoing care of her chronic wounds, follow-up with Dr. Gill for management of peripheral artery disease and further evaluation of arterial insufficiency leading to possibly chronic ulceration. Physical Exam Narrative: EXAM NARRATIVE: GEN: Awake, alert and oriented, no acute distress except for LE pain. CVS: S1S2 N RS: CTA B/L Abd: Soft, nt/nd , bs+ CARE COORDINATION MANAGER: no focal neuro deficits EXT: chronic LE wounds over B/L legs, no signs of gangrene, surrounding cellulitis appears resolved. Discharge Data Data Completed and Pending: Completed Studies During Hospitalization Category Date Time Status CT abdomen pelvis wo con [id number] Urge nt Cat Scan 08/09/20 18:[address] hip RT wo con* [id number] Routine Cat Scan 08/13/20 18:[address] lower leg RT w o con* [id number] Routi ne Cat Scan 08/12/20 00:[address] lumbar spine w o con* [id number] Routi ne Cat Scan 08/15/20 16:[address] thoracic spin wo con* [id number] Rout ine Cat Scan 08/15/20 16:26 Completed XR KUB portable 7 4018 Urgent Exams 08/09/20 16:53 Completed XR chest 1V mp ble 10193 Urgent Exams 08/09/20 16:53 Completed XR femur LT min 2 V* [id number] Stat Exams 08/09/20 23:54 Completed XR femur RT min 2 V* [id number] Stat Exams 08/09/20 23:54 Completed XR hip RT 2-3V wo /w pel* [id number] Rout ine Exams 08/11/20 12:50 Completed XR ribs LT 2V* 71 100 Routine Exams 08/15/20 16:26 Completed Pathology: Surgic al [PTH] Routine Pth 08/12/20 16:42 Completed CV carotid duplex BI* [id number] Routine Ultrasound 08/10/20 07:00 Completed CV echo complete* [id number] Routine Ultrasound 08/10/20 07:00 [place] [id number] Routin e Ultrasound 08/10/20 07:00 Completed Pending at discharge Category Date Time Status Enteric Bacterial Panel by PCR Rout ine Lab 08/09/20 23:54 Ordered Enteric Parasite Panel by PCR Routi ne Lab 08/09/20 23:54 Ordered Immunochemical Fe june OCB Routine Lab 08/09/20 23:54 Ordered Lactoferrin Routi ne Lab 08/09/20 23:54 Ordered Vancomycin Trough Timed Lab 08/19/20 10:00 Ordered Labs from last 24 hours 08/18/20 08/18/20 08/18/20 10:55 06:37 03:30 WBC RBC Hgb Hct MCV MCH MCHC RDW Plt Count MPV Neut % (Auto) Lymph % (Auto) Wake % (Auto) Eos % (Auto) Baso % (Auto) Neut # (Auto) Lymph # (Auto) Wake # (Auto) Eos # (Auto) Baso # (Auto) Nucleated RBC % (a uto) Nucleated RBCs # Sodium 136 Potassium 3.5 Chloride 98 Carbon Dioxide 30 H Anion Gap 11.5 BUN 32 H Creatinine 1.1 H GFR Calculation Not Reportable Glucose 101 POC Glucose 139 127 Calculated Osmolal ity 289 Calcium 8.4 L Total Bilirubin 0.3 AST 26 ALT 18 Alkaline Phosphata se 90 Total Protein 6.1 L Albumin 2.3 L Globulin 3.8 08/18/20 08/17/20 08/17/20 03:30 19:46 16:42 WBC 12.2 H RBC 2.49 L Hgb 7.6 L Hct 25.5 L MCV 102.4 H MCH 30.5 MCHC 29.8 L RDW 15.1 Plt Count 372 MPV 11.3 H Neut % (Auto) 81.7 Lymph % (Auto) 9.3 Wake % (Auto) 5.7 Eos % (Auto) 1.2 Baso % (Auto) 0.5 Neut # (Auto) 9.95 H Lymph # (Auto) 1.1 Wake # (Auto) 0.7 Eos # (Auto) 0.2 Baso # (Auto) 0.1 Nucleated RBC % (a uto) 0 Nucleated RBCs # 0.0 Sodium Potassium Chloride Carbon Dioxide Anion Gap BUN Creatinine GFR Calculation Glucose POC Glucose 192 132 Calculated Osmolal ity Calcium Total Bilirubin AST ALT Alkaline Phosphata se Total Protein Albumin Globulin Vitals: Last Vital Signs Temp 98.3 F 08/18/20 11:20 Pulse 62 08/18/20 11:20 Resp 18 08/18/20 11:20 BP 123/67 08/18/20 11:20 Pulse Ox 95 08/18/20 11:20 Discharge Plan Discharge Patient Disposition: Home Health Service Condition: Stable Prescriptions: New cyclobenzaprine 10 mg Tablet 10 mg PO BID PRN (Reason: Muscle Spasms) 30 Days Qty: 45 RF: 0 levothyroxine 88 mcg Tablet 88 mcg PO DAILY 30 Days Qty: 30 RF: 0 Augmentin 875-125 mg tablet 1 tab PO BID 14 Days Qty: 28 RF: 0 doxycycline hyclate 100 mg tablet 100 mg PO BID 14 Days Qty: 28 RF: 0 Continued amiodarone 200 mg tablet 200 mg PO DAILY RF: 0 potassium chloride 20 mEq tablet extended release 20 meq PO BID Qty: 60 RF: 3 atorvastatin 40 mg Tablet 20 mg PO BEDTIME Qty: 30 RF: 0 aspirin 81 mg Tablet,Delayed Release (Dr/Ec) 81 mg PO DAILY Qty: 30 RF: 0 meclizine 25 mg Tablet 25 mg PO TID PRN (Reason: Dizziness) Qty: 10 RF: 0 pantoprazole 40 mg Tablet,Delayed Release (Dr/Ec) 40 mg PO DAILY Qty: 30 RF: 0 metoprolol tartrate 50 mg Tablet 50 mg PO BID Qty: 60 RF: 0 hydrocodone-acetaminophen 5-325 mg tablet 1 tab PO Q8H PRN (Reason: Pain) RF: 0 lidocaine HCl 2 % jelly See Rx Instructions .ROUTE .COMPLEX RF: 0 pentoxifylline 400 mg tablet extended release 400 mg PO TID RF: 0 gabapentin 100 mg Capsule 100 mg PO Q8H RF: 0 nystatin 100,000 unit/gram Powder See Rx Instructions .ROUTE .COMPLEX RF: 0 duloxetine [Cymbalta] 30 mg Capsule,Delayed Release(Dr/Ec) 30 mg PO DAILY RF: 0 One-A-Day Women's 50 Plus 400-20 mcg Tablet 1 tab PO DAILY RF: 0 Held clopidogrel 75 mg Tablet 75 mg PO DAILY Qty: 30 RF: 0 Hold Instructions: Resume on 08/25/20. after appointment with Dr. gill Discontinued torsemide 100 mg tablet 100 mg PO DAILY Qty: 90 RF: 3 liothyronine 5 mcg Tablet 5 mcg PO DAILY Qty: 30 RF: 0 bumetanide 2 mg tablet 2 mg PO BID RF: 0 metolazone 5 mg Tablet 5 mg PO DAILY RF: 0 levothyroxine 100 mcg tablet 100 mcg PO DAILY RF: 0 coenzyme Q10 [CoQ-10] 100 mg Capsule 100 mg PO PRN RF: 0 Discharge Orders: Discharge Order (Routine); Ordered 08/18/20 Ordered By: Mandy Diaz Ambulatory Orders: DME: Hospital Bed (Order) Location: None Selected Ordered By: Mandy Dias DME: Miscellaneous (Order) Location: None Selected Ordered By: Marquise Talavera DME: Miscellaneous (Order) Location: None Selected Ordered By: Mandy Dias DME: Miscellaneous (Order) Location: None Selected Ordered By: Mandy Dias DME: Wheelchair (Order) Location: None Selected Ordered By: Mandy Dias Referrals: [facility] [Outside] [facility] [Outside] Melina Weeks MD [Primary Care Provider] - 08/26/20 2:30 pm (Please follow up on August 26 at 2:30 pm ) Hoa Gill MD [Physician] - 08/26/20 9:45 am (Please folow up with Dr Jairo DUBOIS on August 26 at 09:45 am) [facility], [Staff Physician] - 08/24/20 3:00 pm (Please follow up SundayAugust 24 at 3:00 pm) Discharge Diet: Cardiac and Diabetic Discharge Activity: Increase activity as tolerated, Wheelchair as instructed and As per PT/OT instructions Patient Instructions: Doxycycline (By mouth), Cyclobenzaprine (By mouth), Amoxicillin (By mouth), Fall Prevention, Wound Care (General) Discharge Date/Time: 08/18/20 12:30 Discharge Attestations Time Spent in Discharge Care*: greater than 30 min Specific Discharge Activities: Specific discharge activities: educating patient, educating and/or supporting family/caregiver, discussing with medical case worker/social workers/dc planners and documenting/other paperwork Status at Discharge: Cognitive status at discharge: cognitively intact, Behavioral status at discharge: cooperative, Quality Metrics Clinical Quality Measures During this hospital stay, did patient experience: None Coding Level of Care Code Acute Member Service Specialist for g Fwd Diagnoses Bilateral lower leg cellulitis L03.116; L03.115 Hematoma of right iliopsoas muscle S70.11XA Acute kidney injury superimposed on CKD N17.9; N18.9 Acute dehydration E86.0 Viral gastroenteritis A08.4 Abrasion of scalp S00.01XA Encounter type: initial encounter Contusion of face S00.83XA Encounter type: initial encounter Fall W19.XXXA Encounter type: initial encounter 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
== END 2020-08-18 12:30 | disposition home health service (06) | DRG 854 ==
LOC: ER 20:27 → MEDSURG 22:42
PROVIDERS: Internal Medicine; Student in an Organized Health Care Education/Training Program; Surgery; Admitting Provider Family Medicine; PCP Internal Medicine; Visit Provider Student in an Organized Health Care Education/Training Program
PROC: 0JBN0ZZ Excision of Right Lower Leg Subcutaneous Tissue and Fascia, Open Approach (ICD-10-PCS; principal; 2020-08-12 08:30)
DX: A41.9 Sepsis, unspecified organism (principal); I13.0 Hypertensive heart and chronic kidney disease with heart failure and stage 1 through stage 4 chronic kidney disease, or unspecified chronic kidney disease; I50.32 Chronic diastolic (congestive) heart failure; I25.810 Atherosclerosis of coronary artery bypass graft(s) without angina pectoris; N17.9 Acute kidney failure, unspecified; L03.116 Cellulitis of left lower limb; L03.115 Cellulitis of right lower limb; Z95.1 Presence of aortocoronary bypass graft; E11.22 Type 2 diabetes mellitus with diabetic chronic kidney disease; N18.9 Chronic kidney disease, unspecified; Z79.4 Long term (current) use of insulin; E03.9 Hypothyroidism, unspecified; D63.1 Anemia in chronic kidney disease; E78.5 Hyperlipidemia, unspecified; I25.2 Old myocardial infarction; Z87.891 Personal history of nicotine dependence; E86.0 Dehydration; A08.4 Viral intestinal infection, unspecified; S00.01XA Abrasion of scalp, initial encounter; W19.XXXA Unspecified fall, initial encounter; S00.83XA Contusion of other part of head, initial encounter; Z79.891 Long term (current) use of opiate analgesic; Z79.82 Long term (current) use of aspirin; Z86.73 Personal history of transient ischemic attack (TIA), and cerebral infarction without residual deficits; S70.01XA Contusion of right hip, initial encounter; B95.5 Unspecified streptococcus as the cause of diseases classified elsewhere; B96.4 Proteus (mirabilis) (morganii) as the cause of diseases classified elsewhere; S81.801A Unspecified open wound, right lower leg, initial encounter; S81.802A Unspecified open wound, left lower leg, initial encounter; M79.89 Other specified soft tissue disorders; Z86.14 Personal history of Methicillin resistant Staphylococcus aureus infection; R42 Dizziness and giddiness; I48.91 Unspecified atrial fibrillation; E11.51 Type 2 diabetes mellitus with diabetic peripheral angiopathy without gangrene
CPT/HCPCS: 12345; 36415; 36416; 70450; 70486; 71045; 71100; 72128; 72131; 73502; 73552; 73700; 74018; 74176; 80053; 80061; 80202; 81003; 82550; 82962; 83036; 83605; 83735; 83880; 84100; 84132; 84145; 84443; 85025; 85049; 85610; 85651; 85730; 86140; 87040; 87070; 87077; 87176; 87186; 87205; 87426; 87635; 88307; 93306; 93880; 93970; 94664; 96375; 97110; 97162; 97167; 97530; 97535; 99282; 99283; J0696; J1644; J2270; J2704; J3010; J3370; J3475; J3480; J3490; J7030; J7040; J7050; S0030

== ENCOUNTER 2020-08-24 14:55 | Outpatient (CLI) | payer MEDICARE, SELFPAY | END 2020-08-24 14:56 | disposition home or self-care (01) | LOC: WOUND 14:57 | PROVIDERS: PCP Internal Medicine; Visit Provider Thoracic Surgery (Cardiothoracic Vascular Surgery) | DX: E11.622 Type 2 diabetes mellitus with other skin ulcer (principal); L97.812 Non-pressure chronic ulcer of other part of right lower leg with fat layer exposed; L97.822 Non-pressure chronic ulcer of other part of left lower leg with fat layer exposed; L89.612 Pressure ulcer of right heel, stage 2 | CPT/HCPCS: 99215; L4397 ==

== ENCOUNTER 2020-08-27 10:26 | Outpatient (CLI) | payer MEDICARE, SELFPAY ==
[2020-08-27 11:15] LABS: Add Urine Microscopic? YES; Bilirubin Urine Neg (Negative); Blood Urine Neg (Negative); Glucose Urine UA Norm (Normal); Ketones Urine Negative (Negative); Leukocyte Esterase Urine 2+ (Negative); Nitrate Urine Negative (Negative); Protein Urine Neg (Negative); Specific Gravity, Urine 1.015 (1.005-1.030); Urine Appearance SL Hazy (CLEAR); Urine Color Yellow (Yellow); Urobilinogen Urine Norm (Negative)
[2020-08-27 11:22] LABS: Add Urine Culture? No; Bacteria Urine TRACE /hpf; Mucus Urine TRACE /hpf; Renal Epithelial Cells Urine 0 /hpf; WBC Urine 40-55 /hpf (0-5)
== END 2020-08-27 10:27 | disposition home or self-care (01) ==
LOC: LAB 10:29
PROVIDERS: PCP Internal Medicine; Visit Provider Internal Medicine
DX: N18.30 Chronic kidney disease, stage 3 unspecified (principal)
CPT/HCPCS: 81001; 87086

== ENCOUNTER 2020-08-31 15:41 | Outpatient (CLI) | payer MEDICARE, SELFPAY | END 2020-08-31 15:42 | disposition home or self-care (01) | LOC: WOUND 15:42 | PROVIDERS: PCP Internal Medicine; Visit Provider Thoracic Surgery (Cardiothoracic Vascular Surgery) | DX: L89.612 Pressure ulcer of right heel, stage 2 (principal); L89.312 Pressure ulcer of right buttock, stage 2; E11.622 Type 2 diabetes mellitus with other skin ulcer; L97.812 Non-pressure chronic ulcer of other part of right lower leg with fat layer exposed; L97.822 Non-pressure chronic ulcer of other part of left lower leg with fat layer exposed | CPT/HCPCS: 11042; 11045 ==

== ENCOUNTER 2020-09-03 06:56 | Outpatient (CLI) | payer MEDICARE, SELFPAY ==
[2020-09-03 07:29] LABS: Basophils # 0.1 10^3/uL (0.0-0.1); Basophils % 1.1 %; Eosinophils # 0.2 10^3/uL (0.0-0.8); Eosinophils % 1.7 %; Hematocrit 31.2 % (37.0-47.0); Hemoglobin 9.4 g/dL (11.5-15.3); Lymphocytes # 1.4 10^3/uL (0.8-4.8); Lymphocytes % 13.1 %; Mean Corpuscular HGB Conc 30.1 g/dL (30.0-36.0); Mean Corpuscular Hemoglobin 30.8 pg (28.0-34.0); Mean Corpuscular Volume 102.3 fL (81-99); Mean Platelet Volume 10.6 fL (7.4-10.4); Monocytes # 0.7 10^3/uL (0.2-0.9); Monocytes % 6.4 %; Neutrophils # 7.98 10^3/uL (1.8-7.7); Neutrophils % 77.4 %; Nucleated Red Blood Cells % 0 %; Platelet Count 323 10^3/cmm (130-400); Red Blood Count 3.05 10^6/uL (4.1-5.3); Red Cell Distribution Width 16.6 % (12.1-15.1); White Blood Count 10.3 10^3/uL (4.0-10.0)
[2020-09-03 07:40] LABS: INR 1.02 (0.83-1.21); Prothrombin Time (Patient) 13.8 Seconds (12.0-15.1)
[2020-09-03 07:45] LABS: Blood Urea Nitrogen 28 mg/dL (8-23); Calcium 9.1 mg/dL (8.5-10.5); Carbon Dioxide 23 mmol/L (22-29); Chloride 100 mmol/L (98-107); Glucose 95 mg/dL (65-115); Osmolality Calculated 277 mOsm/kg (285-295); Sodium 131 mmol/L (136-145)
[2020-09-03 07:48] LABS: Anion Gap 11.9 (5-19); Potassium 3.9 mmol/L (3.5-5.1)
[2020-09-04 16:04] LABS: Quest SARS-CoV-2 RNA NOT DETECTED (NOT DETECTED)
== END 2020-09-03 06:57 | disposition home or self-care (01) ==
LOC: LAB 07:00
PROVIDERS: PCP Internal Medicine; Visit Provider Internal Medicine Cardiovascular Disease
DX: I73.9 Peripheral vascular disease, unspecified (principal); S81.801A Unspecified open wound, right lower leg, initial encounter; S81.802A Unspecified open wound, left lower leg, initial encounter; X58.XXXA Exposure to other specified factors, initial encounter
CPT/HCPCS: 36415; 80048; 85025; 85610; 87635

== ENCOUNTER 2020-09-06 10:00 | Observation (INO) | payer MEDICARE, SELFPAY ==
[2020-09-06] VITALS (42 sets, daily range): BP systolic 87–162; BP diastolic 44–86; PULSE 67–81; RESP 12–41; TEMP 36.3–36.6; O2SAT 95–100
[2020-09-06] MEDS: diphenhydrAMINE 50 mg Capsule PO (06:31)
[2020-09-06 06:39] LABS: Basophils # 0.1 10^3/uL (0.0-0.1); Eosinophils # 0.1 10^3/uL (0.0-0.8); Eosinophils % 1.7 %; Hematocrit 31.2 % (37.0-47.0); Hemoglobin 9.3 g/dL (11.5-15.3); Lymphocytes # 1.1 10^3/uL (0.8-4.8); Lymphocytes % 14.2 %; Mean Corpuscular HGB Conc 29.8 g/dL (30.0-36.0); Mean Corpuscular Hemoglobin 31.3 pg (28.0-34.0); Mean Corpuscular Volume 105.1 fL (81-99); Mean Platelet Volume 10.1 fL (7.4-10.4); Monocytes # 0.6 10^3/uL (0.2-0.9); Neutrophils # 6.07 10^3/uL (1.8-7.7); Neutrophils % 75.7 %; Nucleated Red Blood Cells % 0 %; Platelet Count 275 10^3/cmm (130-400); Red Blood Count 2.97 10^6/uL (4.1-5.3); Red Cell Distribution Width 16.6 % (12.1-15.1)
--- NOTE | 2020-09-06 06:49 | PC.NURSE ---
pulses radial pulsed felt 2+ legs have curlex from midcalf to foot- no pulses attempted
[2020-09-06 06:59] LABS: Anion Gap 11.7 (5-19); Blood Urea Nitrogen 17 mg/dL (8-23); Calcium 8.7 mg/dL (8.5-10.5); Carbon Dioxide 24 mmol/L (22-29); Chloride 104 mmol/L (98-107); Glucose 109 mg/dL (65-115); Osmolality Calculated 284 mOsm/kg (285-295); Potassium 3.7 mmol/L (3.5-5.1); Sodium 136 mmol/L (136-145)
--- NOTE | 2020-09-06 07:00 | XACV_ITS ---
Wt: 68 kg BSA: 1.79 m2 Any Known Allergies: No known allergies Gender: Female : 1950 Exam Type: Invasive Peripheral Vascular - Dual [place] Procedure(s): Procedure Description: Peripheral Cath Diagnostic Procedure Procedure Description: Abdominal aortic angiography Procedure Description: Lower extremities' angiography Procedure Description: Peripheral vascular Intervention Procedure Description: PV Balloon Exam Priority: Routine Abdominal Diagnostic Findings A short pigtail catheter was placed just below the renal artery and an abdominal aortogram was performed. The aorta was found to have moderate diffuse plaques and tortuosity. No significant stenosis was noted. Lower Extremity Diagnostic Findings The left common iliac artery was selectively engaged using the contra catheter. Then this catheter was exchanged for a multipurpose catheter. Left common iliac angiogram with runoff was performed in the AP view. Because of the suboptimal visualization of the distal arteries, the multipurpose catheter was then placed at the distal superficial femoral artery and an angiogram with runoff was performed in the AP view. The common iliac artery, external iliac and the common femoral arteries were found to have mild diffuse plaques and calcification with no significant stenosis. The superficial femoral artery was found to have mild to moderate diffuse plaques with no significant stenosis. The popliteal artery also was found to have mild to moderate diffuse plaques. The artery then trifurcates. The antecubital artery appears to be totally occluded proximally. The branches of the antecubital artery were found to have collateral filling from the peroneal artery. The peroneal artery was found to have mild to moderate narrowing proximally. The artery extends up to the ankle with no significant stenosis. The posterior tibial artery also was found to be extending up to the ankle and mostly supplies the plantar arch. The artery was found to have mild to moderate diffuse disease around the ankle. Just at the junction of the middle and the distal third of the posterior tibial artery, there was found to be a high-grade tandem lesion of 80 to 90% in this artery. Left iliac angiogram with runoff was performed by injecting directly into the femoral arterial sheath. The common iliac, external iliac and common femoral arteries were found to have mild diffuse plaques. The superficial femoral artery was found to have mild to moderate diffuse disease. The popliteal artery was found to be totally occluded after the trifurcation. The anterior tibial and the peroneal arteries were found to be totally occluded proximally. Some bridging collaterals were noted in the mid segment of these arteries. The posterior tibial artery also appears to be totally occluded proximally. The artery appears to reconstitute at the mid segment through collaterals. Some reconstituted segments of the peroneal and posterior tibial arteries are noticed up to the ankle. Lower Extremity Interventional Findings Indication: Nonhealing ulcer/critical limb ischemia. T here is a high-grade 90% stenosis in the mid to distal right posterior tibial artery. We decided to intervene on it by balloon angioplasty. 6 Occ[place] sheath was exchanged for long sheath. Through a seeker support catheter, command wire was used to cross the lesion. We performed balloon angioplasty using a 2.0x 40 mm [id number] balloon. There was minimal residual stenosis after balloon angioplasty. Wire and catheter was removed. . Conclusions This is a 69-year-old white female with history of atherosclerotic heart disease, status post open heart surgery, presenting with nonhealing ulcers in both legs. She has bone deep large ulcer in the right leg with gangrenous right little toe. Nonhealing superficial ulcers in the left leg. She was found to have abnormal TBI's bilaterally. For further evaluation of the peripheral arteries, peripheral angiogram was recommended. The findings are as follows. On the right side, she was found to have a high-grade lesion in the posterior tibial artery. The anterior tibial artery was found to be totally occluded. The peroneal artery and the posterior tibial arteries were patent up to the ankle. Mild to moderate diffuse disease was noted in the superficial femoral and popliteal artery. On the left side, popliteal artery was found to be totally occluded after the trifurcation. The anterior tibial, posterior tibial and the peroneal arteries were found to be totally occluded proximally. Some reconstitution of the mid segment of the peroneal and posterior tibial arteries were noted through collaterals. The superficial femoral artery was found to have mild to moderate diffuse disease. Mild diffuse plaques and calcification was noted in the iliac and common femoral arteries. Successful balloon angioplasty of mid to distal posterior tibial artery. Recommendations I reviewed and discussed the angiogram findings with Dr. Guthrie. Based on the above findings and patient's clinical presentation, it was thought to be appropriate to consider balloon angioplasty of the lesion in the posterior tibial artery on the right side. Because of her abnormal kidney function, consideration may be given for staged intervention of the left infrapopliteal vessels. Dr. Guthrie took over further management of this patient at this point. Patient underwent successful balloon angioplasty of mid to distal posterior tibial artery on right side. We will plan on intervention of left infrapopliteal arteries as a staged procedure. Continue Plavix and cilostazol. Hemodynamic Data Phase:Rest AO : / ( -5.0 ) @ 3:36:00 AM / ( -6.0 ) @ 3:40:00 AM Access Site Site: Left Femoral artery Sheath Size: 5 Fr Hemost... Method: Suture Hemost... Success: Successful Procedure Details Findings Procedure Consent Obtained. Pre-Procedure Time Out. Identified patient by full name and date of as verbalized by the patient/guarantor. Does the consent match the physician's order: Yes. Accurate & Complete Informed Consent: Yes. Inpatient/Outpatient History & Physical on Chart: Yes. If H&P is completed, is and addenduem needed: No; If yes, is the addendum complete: N/A Emergent; Informed Consent not obtained due to time critical life threat. Visualize and Verify Site with Patient/Guarantor: N/A. Relevant Radiology Images available: Yes. Pre-op teaching completed and patient verbalized understanding. The risks, benefits, and alternatives of sedation and/or procedure were discussed by physician. The patient agrees to continue. Procedure started. Correct patient, site and procedure confirmed by cath team. PERRLA. Strong, equal hand blade groover bilaterally. Lungs clear x 5 lobes. IV Site on Arrival: 18 gauge in the left anticubital. IV Fluids: 0.9% NaCl at KVO. 0 mL infused prior to landscape laborer. Pre Procedural Pulses: bilateral dorsalis pedis was Doppled. Pre Procedural Pulses: bilateral posterior tibial was Doppled. Pre Procedural Pulses: bilateral radial was 1+. Oxygen started at 2liters/min via nasal canula. bilateral groins was prepped with chloroprep then draped in the usual sterile fashion. Physician notified. Physician arrived. Baseline sample Acquired. HR: 79 BPM. Physician scrubbed in. Time out performed with cath team. Lidocaine 1% infiltrated to the left groin. Arterial access obtained with micropuncture set. A 5FrFr UF catheter in over wire. Abdominal aortogram performed in AP @ 15 mL/sec for a total of 30 mL. Abdominal aortogram performed in AP @ 12 mL/sec for a total of 24 mL. Abdominal aortogram performed in AP @ 10 mL/sec for a total of 20 mL. Glidewire inserted into the common femoral. UF catheter out. Glidewire out. MPA 2 catheter seated in the right common Illiac. Right leg runoff performed at 10mL for a total of 20mL. Right leg runoff performed at 10mL for a total of 20mL. Glidewire inserted and seated in the distal SFA. MPA inserted in the distal SFA. Glidewire out. Right leg runoff performed through MPA2 catheter at 10mL for a total of 20mL. MPA2 moved to the left common Illiac. Catheter out. UF catheter inserted. Left leg runoff performed at 10mL for a total of 20mL. Side port of sheath attached to Normal Saline flush at KVO to maintain patency. UF catheter removed. Dr. Guthrie scrubbed in. 6FR sheath exchanged for 6FR Flexor sheath. seeker inserted over the glidewire. Wire out. Hand Injection performed. Sheath flushed. Inflation number : 1 A AB ARMADA 14 OTW [id number] was prepped and advanced across the Mid Posterior Tibial, Right , then inflated to 8 MIRTA for 0:25 seconds. Inflation number: 2 The AB ARMADA 14 OTW [id number] was reinflated across the Mid Posterior Tibial, Right, to 10 MIRTA for 1:30 seconds. Inflation number: 3 The AB ARMADA 14 OTW [id number] was reinflated across the Mid Posterior Tibial, Right, to 12 MIRTA for 1:35 seconds. Balloon out over wire. Seeker in. Command wire out. Hand injection performed. Seeker out. Glidewire inserted. Right leg runoff performed at 10mL for a total of 20mL. Right leg runoff performed at 10mL for a total of 30mL. 6FR flexor sheath exchanged for 6FR sheath. Sheath(s) sutured into position with 2-0 silk and sterile 4x4's and Op-site applied over the site. No oozing or signs and symptoms of hematoma noted. Arterial sheath flushed and connected to tranducer and pressure bag with heparinized saline. PERRLA. Strong, equal hand blade groover bilaterally. No VTE prophylaxis required. Post Procedure: Pulses reassessed and unchanged. Medication's Wasted: Lidocaine 1% = 8 mL. Medication's Wasted: Heparin = 4000 units. Medication's Wasted: Other = Versed 1 mg. Total IV fluids: 142 mL. A Suture was successful obtaining hemostatsis at the Left Femoral artery insertion site. Contrast type used: Visipaque 320 mgI/mL, 500 mL bottle. Vital chart was stopped. Post-op diagnosis: PAD; nonhealing ulcer. Complications: None. Estimated blood loss: 5mL-10mL. Procedure completed. Patient transferred by bed to ICU. Procedure Medications Start: 7:13 AM Stop: 7:13 AM Medication: Versed 1 mg and Fentanyl 25 mcg Route: I.V. Start: 7:13 AM Stop: 7:13 AM Medication: Fentanyl Amount: 25 mcg Route: I.V. Start: 7:18 AM Stop: 7:18 AM Medication: Versed 1 mg and Fentanyl 25 mcg Route: I.V. Start: 7:49 AM Stop: 7:49 AM Medication: Versed 1 mg and Fentanyl 25 mcg Amount: 1 Route: I.V. Start: 8:06 AM Stop: 8:06 AM Medication: Heparin Amount: 1500 units Route: I.V. Start: 8:12 AM Stop: 8:12 AM Medication: Versed Amount: 1 mg Route: I.V. Start: 8:59 AM Stop: 8:59 AM Medication: Versed Amount: 1 mg Route: I.V. I, the attending physician, have reviewed and verified all procedure medications. Yes, all medications given per verbal order History/Risk Factors Hypertension: Yes Dyslipidemia: Yes Peripheral Arterial Disease (PAD): Yes Myocardial Infarction (VA): Yes Obesity: No Renal Disease: No Prior Interventions PCI: No CABG: Yes Valve Surgery: No Report Signatures Interventional Workflow Finalized by Rusty Guthrie MD on 09/12/2020 03:06 PM Diagnostic Workflow Finalized by Dr Hoa Gill MD [facility] on 09/06/2020 08:55 PM
--- NOTE | 2020-09-06 07:05 | W.PM.OPSUD ---
Surgery/Procedure H&P Update DATE OF PROCEDURE: September 06, 2020 DATE H&P PERFORMED: 08/26/20 H&P UPDATE INFORMATION: I have reviewed H&P completed within last 30 days, I have examined patient prior to procedure and No changes to prior documentation PREOP DIAGNOSIS: Cellulitis with necrotic wound right and left leg PRIMARY INDICATION FOR PROCEDURE: PAD , Non healing ulcer PLANNED PROCEDURE: Operation Date: 09/06/20 07:00 Proposed Procedures p Peripheral Diagnostic(Not Applicable) - Hoa Gill MD PATIENT REASSESSED PRIOR TO SEDATION, WITH NO CHANGE NOTED: Yes PHYSICAL EXAM: alert, clear to auscultation bilaterally and regular rate & rhythm AIRWAY EVAL/ANESTHESIA PLAN: normal airway, ASA III, Risks, benefits & alternatives of sedation and/or procedure discussed and Patient agrees to continue as planned
[2020-09-06] MEDS: HYDROcodone-acetaminophen 5-325 mg Tablet 1 TAB PO ×2 (09:38→21:42)
--- NOTE | 2020-09-06 09:40 | PC.NURSE ---
0940- ADMITTED FROM [facility]. S/P PERIPHERAL TO RIGHT LOWER EXTREMITY. PT C/O SEVERE PAIN TO LEG. UNABLE TO PALPATE PULSES, DOPPLER USED FOR POSTERIOR TIBIAL ON LEFT/RIGHT FEET. EXTREMITIES WARM/DRY.
[2020-09-06] MEDS: cyclobenzaprine 10 mg Tablet PO (10:58)
[2020-09-06] MEDS: fentaNYL 50 mcg/mL INJ 2mL 25 MCG IVP ×3 (11:29→20:18)
[2020-09-06] MEDS: fentaNYL 50 mcg/mL INJ 2mL IVP (13:56)
[2020-09-06] MEDS: gabapentin 100 mg Capsule PO (16:58)
[2020-09-06] MEDS: metoprolol tartrate 50 mg Tablet PO (16:58)
[2020-09-06] MEDS: cilostazol 100 mg Tablet PO (16:59)
[2020-09-06] MEDS: duloxetine 30 mg Capsule PO (16:59)
[2020-09-06] MEDS: aspirin 81 mg EC Tablet PO (16:59)
--- NOTE | 2020-09-06 17:08 | PC.NURSE ---
LEFT FEMORAL SHEATH PULLED 1406-SHEATH PULLED, MANUAL PRESSURE APPLIED X2O MINUTES, HEMOSTASIS ACHIEVED. NO HEMATOMA FORMATION. 2X2 & TEGADERM APPLIED TO SITE.
[2020-09-06] MEDS: ALPRAZolam 0.25 mg Tablet PO (20:17)
[2020-09-06] MEDS: atorvastatin 40 mg Tablet 20 MG PO (20:17)
[2020-09-06] MEDS: temazepam 15 mg Capsule PO (21:45)
[2020-09-07] VITALS (24 sets, daily range): BP systolic 75–120; BP diastolic 40–83; PULSE 69–85; RESP 15–31; TEMP 37; O2SAT 93–100
[2020-09-07] MEDS: HYDROcodone-acetaminophen 7.5-325 mg Tablet 1 TAB PO ×3 (04:17→13:52)
[2020-09-07] MEDS: fentaNYL 50 mcg/mL INJ 2mL IVP (04:42)
[2020-09-07] MEDS: levothyroxine 88 mcg Tablet PO (05:01)
[2020-09-07] MEDS: pantoprazole DR 40 mg Tablet PO (05:01)
[2020-09-07] MEDS: amiodarone 200 mg Tablet PO (05:01)
--- NOTE | 2020-09-07 05:28 | PC.NURSE ---
Shift Events: Patient's pain well controlled with prn pain medications this shift. Dressings dry and intact. Vital signs remained stable. Doppler used to assess bilateral pedal and bilateral posterior tibial pulses. Strong pulses noted on Doppler. Groin site soft with no hematoma present.
[2020-09-07] MEDS: metoprolol tartrate 50 mg Tablet PO (08:11)
[2020-09-07] MEDS: clopidogrel 75 mg Tablet PO (08:12)
[2020-09-07] MEDS: cilostazol 100 mg Tablet PO (08:12)
[2020-09-07] MEDS: gabapentin 100 mg Capsule PO (08:14)
--- NOTE | 2020-09-07 09:02 | PC.CHAP ---
Pastoral Care Encounter/Spiritual Assessment Type of Contact [] Declined field placement director visit [] Patient/Family/Request visit [] Outpatient visit [] Follow-up visit [] Physician referral [] Code/Alert [] Routine visit [] Staff referral [] Actively dying [] Patient sleeping [] Family support [] [] Out of room [] Palliative care [] [x] Receiving care in room [] Pre-surgical visit [] Trauma [] Long length of stay [] ICU visit [] Other: Relational/Emotional Strength [] Patient feels connected with others/family/visitors/staff [] Distress [] Loneliness/isolation [] Abandonment Spirituality of Patient [] Person of Kaylen [] Attends Jehovah'S Witness of their Kaylen [] Believes in Prayer [] Reads Bible or Mandaen materials [] There are Spiritual issues to be addressed Financial Reporting Advisor Interventions [x] Prayer [] Active listening [] Non-anxious presence [] Spiritual/emotional support [] Crisis/trauma care [] Spiritual counseling [] Bereavement support [] Provided bereavement packet [] Provided Bible/devotional materials [] Provided toy/stuffed animal, coloring book to patient or family member [] Provided Communion [] Anointing/[place]seh [] Salvation [x] Completed spiritual assessment [] Other: Impact on Illness or Injury [] Angry [] Fearful [] Anxious [] Often cries [] Exhaustion [] Unable to work [] Unable to attend caodaism [] Unable to walk/stand [] Unable to read [] Unable to drive [] Unable to eat/drink [] Unable to sleep [] Unable to be with family [] Patient intubated [] Other: Summary Time spent with patient
[2020-09-07 09:43] LABS: Basophils # 0.1 10^3/uL (0.0-0.1); Basophils % 0.9 %; Eosinophils # 0.1 10^3/uL (0.0-0.8); Eosinophils % 1.6 %; Hematocrit 29.3 % (37.0-47.0); Hemoglobin 8.7 g/dL (11.5-15.3); Lymphocytes # 1.3 10^3/uL (0.8-4.8); Lymphocytes % 17.9 %; Mean Corpuscular HGB Conc 29.7 g/dL (30.0-36.0); Mean Corpuscular Hemoglobin 30.9 pg (28.0-34.0); Mean Corpuscular Volume 103.9 fL (81-99); Mean Platelet Volume 10.8 fL (7.4-10.4); Monocytes # 0.4 10^3/uL (0.2-0.9); Monocytes % 5.3 %; Neutrophils # 5.53 10^3/uL (1.8-7.7); Neutrophils % 73.9 %; Nucleated Red Blood Cells % 0 %; Platelet Count 249 10^3/cmm (130-400); Red Blood Count 2.82 10^6/uL (4.1-5.3); Red Cell Distribution Width 16.2 % (12.1-15.1); White Blood Count 7.5 10^3/uL (4.0-10.0)
[2020-09-07 10:03] LABS: Blood Urea Nitrogen 15 mg/dL (8-23); Calcium 8.7 mg/dL (8.5-10.5); Carbon Dioxide 22 mmol/L (22-29); Chloride 105 mmol/L (98-107); Glucose 122 mg/dL (65-115); Osmolality Calculated 282 mOsm/kg (285-295); Sodium 135 mmol/L (136-145)
[2020-09-07 10:05] LABS: Anion Gap 12.1 (5-19); Potassium 4.1 mmol/L (3.5-5.1)
--- NOTE | 2020-09-07 10:22 | P.SS_ITS ---
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 She is known to have chronic kidney disease and chronic anemia. She is admitted to hospital for close monitoring, IV hydration and further management. Review of Systems Narrative: CONSTITUTIONAL: No fever or chills. EYES: No blurring of vision or other visual disturbances lately. ENT: No hoarseness of voice, auditory disturbances or sore throat. CARDIOVASCULAR: As mentioned above. RESPIRATORY: No significant cough. GASTROINTESTINAL: No hematemesis or melena. GENITOURINARY: Chronic renal insufficiency INTEGUMENTARY: Nonhealing ulcers of both the leg, bone deep wound on the right side NEURO: No transient ischemic attacks or amaurosis. PSYCHIATRIC: No history of psychosis or major depression. HEMATOLOGIC: Chronic anemia ENDOCRINE: No history of polyuria or polydipsia. MUSCULOSKELETAL: No recent joint pain or swelling. ALLERGY/IMMUNOLOGY: As mentioned above. Home Meds/Allergies Home Medications and Allergies Home Medications Medication Instructions Recorded Confirmed Type amiodarone 200 mg tablet 200 mg PO QAM 05/11/20 09/06/20 History One-A-Day Women's 50 Plus 1 tab PO DAILY 06/12/20 09/06/20 History duloxetine [Cymbalta] 30 mg PO QPM 08/09/20 09/06/20 History gabapentin 100 mg PO BID 08/09/20 09/06/20 History hydrocodone-acetaminophen 1 tab PO Q8H PRN 08/09/20 09/06/20 History lidocaine HCl See Rx Instructions .ROUTE .COMPLEX 08/09/20 09/06/20 History nystatin See Rx Instructions .ROUTE .COMPLEX 08/09/20 09/03/20 History levothyroxine 88 mcg PO QAM 09/03/20 09/06/20 History pantoprazole 40 mg PO QAM 09/03/20 09/06/20 History Allergies Allergy/AdvReac Type Severity Reaction Status Date / Time No Known Allergies Allergy Verified 08/09/20 16:48 PFSH Acute PFSH: Medical History Acute on chronic diastolic (congestive) heart failure Anemia Atherosclerotic heart disease of [place] coronary artery without angina pectoris Benign essential hematuria Benign essential hypertension with target blood pressure below 140/90 CAD (coronary artery disease) Chronic kidney disease 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 Dyslipidemia Intermittent atrial fibrillation NSTEMI (non-ST elevated myocardial infarction) Postoperative atrial fibrillation SOB (shortness of breath) Sternal wound dehiscence Surgical History H/O hysterectomy for benign disease Status post aorto-coronary artery bypass graft Family History Brother CAD (coronary artery disease), Onset Age: 59 of myocardial infarction at age 59 Father CAD (coronary artery disease), Onset Age: 55 Had open heart surgery x3 Grandfather CAD (coronary artery disease), Onset Age: 55 Also of myocardial infarction in the late 50s Social History Smoking and tobacco status: former smoker Alcohol intake: never Vitals/I&O/Wt Last Vital Signs Temp 98.6 F 09/07/20 04:00 Pulse 82 09/07/20 09:00 Resp 26 H 09/07/20 09:00 BP 114/52 09/07/20 09:00 Pulse Ox 100 09/07/20 09:00 09/06/20 09/07/20 09/07/20 22:59 06:59 14:59 Intake Total 100 / 100 200 / 300 250 / 250 Output Total 300 / 300 425 / 725 725 / 725 Balance -200 / -200 -225 / -425 -475 / -475 Weight last 48 hrs Weight 150 lb Physical Exam Narrative: EXAM NARRATIVE: GENERAL: The patient is alert and oriented times three. Not in any acute distress. HEENT: Mild pallor. No icterus or lymphadenopathy.Oral cavity: There are no mucous membrane lesions. NECK: Trachea appears to be central. No masses noted. No JVD or thyromegaly appreciated. RESPIRATORY: Chest is symmetrical. No intercostals muscle retraction or any accessory muscle activation. There is no chest wall tenderness. Breath sounds are heard bilaterally. No rales or rhonchi heard. No evidence of any consolidation. BREASTS: Deferred. HEART: The heart sounds are normal. No S3 or S4. No significant murmurs. No pericardial rub ABDOMEN: No vessel pulsations or distention. No tenderness. No organomegaly appreciated. Bowel sounds are normally heard. : Deferred. RECTAL: Deferred. LYMPHATIC: No lymphadenopathy noted in the neck or groin. EXTREMITIES: 2+ edema both lower extremities. Large, bone deep ulcer on the anterolateral aspect of the right leg. Gangrene is little toe on the right side. Multiple superficial ulcers on the left leg. MUSCULOSKELETAL: No acute joint deformities or swelling SKIN: There are no significant rashes or ecchymosis NEUROPSYCHIATRIC: The patient is alert and oriented x3. Appears to be in a good mood. No tremors or rigidity noted. Urinary Catheter Management^: [place]: Cath Placed During This Visit: yes Reason for Continuing Indwelling Catheter: Accurate Measurement of Urinary Output in Critically Ill Patients Urinary Catheter Date of Insertion: 09/06/20 Urinary Catheter Time of Insertion: 11:31 Hospital Course Admission Diagnoses: Atherosclerotic heart disease, peripheral artery disease, nonhealing ulcers of both legs Hospital Course: Patient underwent bilateral peripheral angiogram. She was found to have a high-grade lesion in the posterior tibial artery on the right side. The right anterior tibial artery was totally occluded. She underwent angioplasty of the lesion in the posterior tibial artery. She had a total occlusion of the popliteal artery at the trifurcation level. Patient is known to have anemia and chronic renal insufficiency. She is admitted to hospital for close monitoring and IV hydration. She remains fairly stable throughout the hospital course. She did not have any hematoma or bleeding in the right in the left groin. Her repeat CBC showed a hemoglobin of 8.7 today. Her BUN and creatinine remained unchanged from the preangiogram level. Since the patient remained stable with no new symptoms, she is being discharged home today. I discussed with the Dr. Stanford about the patient's angiogram findings. Dr. Stanford will be seeing the patient in the wound care clinic and make arrangements for further management. Dr. Guthrie will be making arrangements for possible intervention of the left side. Patient will be continued on the Plavix and Pletal. Aspirin was discontinued because of the anemia. SSS Data Data Completed and Pending: Pending at discharge Category Date Time Status CYLINDER DYER request for service Routin e Exams 09/06/20 07:00 Taken Discharge Plan Discharge Patient Disposition: Home Health Service Condition: Stable Prescriptions: Continued amiodarone 200 mg tablet 200 mg PO QAM RF: 0 cilostazol 100 mg tablet 100 mg PO BID 30 Days Qty: 60 RF: 3 atorvastatin 40 mg Tablet 20 mg PO BEDTIME Qty: 30 RF: 0 clopidogrel 75 mg Tablet 75 mg PO DAILY Qty: 30 RF: 0 Hold Instructions: Resume on 08/25/20. after appointment with Dr. gill meclizine 25 mg Tablet 25 mg PO TID PRN (Reason: Dizziness) Qty: 10 RF: 0 metoprolol tartrate 50 mg Tablet 50 mg PO BID Qty: 60 RF: 0 hydrocodone-acetaminophen 5-325 mg tablet 1 tab PO Q8H PRN (Reason: Pain) RF: 0 lidocaine HCl 2 % jelly See Rx Instructions .ROUTE .COMPLEX RF: 0 gabapentin 100 mg Capsule 100 mg PO BID RF: 0 nystatin 100,000 unit/gram Powder See Rx Instructions .ROUTE .COMPLEX RF: 0 duloxetine [Cymbalta] 30 mg Capsule,Delayed Release(Dr/Ec) 30 mg PO QPM RF: 0 cyclobenzaprine 10 mg Tablet 10 mg PO BID PRN (Reason: Muscle Spasms) 30 Days Qty: 45 RF: 0 levothyroxine 88 mcg tablet 88 mcg PO QAM RF: 0 pantoprazole 40 mg tablet,delayed release (DR/EC) 40 mg PO QAM RF: 0 One-A-Day Women's 50 Plus 400-20 mcg Tablet 1 tab PO DAILY RF: 0 Discontinued aspirin 81 mg tablet,delayed release (DR/EC) 81 mg PO QPM RF: 0 Discharge Orders: Discharge Order (Routine); Ordered 09/07/20 Ordered By: Hoa Gill Discharge Diet: Advance as tolerated Discharge Activity: Resume usual activity Patient Instructions: Peripheral Vascular Stent Placement (DC), Peripheral Vascular Angioplasty (DC) Activity Restrictions/Additional Instructions: Try to avoid any weight lifting or climbing stairs for the next 3 days. Appointment [facility] next week to be seen by the nurse practitioner. Appointment with Dr. Guthrie for intervention of the peripheral artery disease on the left side-please call his office and make the appointment Appointment with me in the office in [address] Stanford at the wound care clinic as scheduled HEART CARE FOLLOW UP [phone] 09/14/20 @ 0900, GERARDO STEVENS 09/16/20 @ 3 PM, DR GUTHRIE 10/07/20 @ 3:15, DR JULIO Burrell Medical Necessity Statement*: Discharge home today. Time Spent in Patient Care*: greater than 30 min Status at Discharge: Cognitive status at discharge: cognitively intact , Behavioral status at discharge: cooperative , Quality Metrics Clinical Quality Measures: During this hospital stay, did patient experience: None Coding Level of Care Code Acute Structural Steel Detailer for Hillary Lambert
--- NOTE | 2020-09-07 15:14 | PC.NURSE ---
1430-DISCHARGE HOME WITH DAUGHTER MARINA DRESSING CHANGE DONE TO BLE. WISHED WELL
== END 2020-09-07 14:30 | disposition home health service (06) ==
LOC: CCL 09-07 11:38 → ICU 09-07 11:38
PROVIDERS: Internal Medicine; Admitting Provider Internal Medicine Cardiovascular Disease; PCP Internal Medicine; Visit Provider Internal Medicine Cardiovascular Disease
DX: L97.816 Non-pressure chronic ulcer of other part of right lower leg with bone involvement without evidence of necrosis (principal); L97.828 Non-pressure chronic ulcer of other part of left lower leg with other specified severity; N18.9 Chronic kidney disease, unspecified; I25.10 Atherosclerotic heart disease of native coronary artery without angina pectoris; E78.5 Hyperlipidemia, unspecified; Z87.891 Personal history of nicotine dependence
CPT/HCPCS: 12345; 36415; 37228; 51702; 75625; 75716; 80048; 85025; 96375; C1725; C1769; C1887; C1894; G0378; J1644; J2250; J3010; J7030; Q0163; Q9967

== ENCOUNTER → 2020-09-14 10:39 | Outpatient (BNVA) | payer MEDICARE, SELFPAY | PROVIDERS: PCP Internal Medicine; Visit Provider Internal Medicine | DX: Z20.828 Contact with and (suspected) exposure to other viral communicable diseases (principal) | CPT/HCPCS: 87635 ==

== ENCOUNTER 2020-09-15 14:52 | Outpatient (CLI) | payer MEDICARE, SELFPAY | END 2020-09-15 14:53 | disposition home or self-care (01) | LOC: WOUND 14:53 | PROVIDERS: PCP Internal Medicine; Visit Provider Thoracic Surgery (Cardiothoracic Vascular Surgery) | DX: L89.612 Pressure ulcer of right heel, stage 2 (principal); E11.622 Type 2 diabetes mellitus with other skin ulcer; L97.812 Non-pressure chronic ulcer of other part of right lower leg with fat layer exposed; L97.822 Non-pressure chronic ulcer of other part of left lower leg with fat layer exposed; E11.621 Type 2 diabetes mellitus with foot ulcer; L97.412 Non-pressure chronic ulcer of right heel and midfoot with fat layer exposed | CPT/HCPCS: 11042; 11045 ==

== ENCOUNTER 2020-09-21 12:47 | Observation (INO) | payer MEDICARE, SELFPAY ==
[2020-09-21] VITALS (7 sets, daily range): BP systolic 127–145; BP diastolic 59–68; PULSE 78–101; RESP 13–21; TEMP 35.7–36.6; O2SAT 95–98; BMI 25.3
--- NOTE | 2020-09-21 14:00 | PC.NURSE ---
Direct Admit Pt received via wheelchair. Pt is alert, oriented. Looked restless due to severe pain on chronic wounds on her legs. VS stable. Wound assessment. Oriented pt to staff and call light provided. Called to inform for pain mgt and pt's arrival to floor.
[2020-09-21] MEDS: sodium chloride 0.9% 1,000 ML 75 ML IV (14:11)
[2020-09-21] MEDS: fentaNYL 50 mcg/mL INJ 2mL 12.5 MCG IVP (14:48)
[2020-09-21] MEDS: morphine 4 mg/mL SDV 1 mL 2 MG IVP (17:46)
--- NOTE | 2020-09-21 17:55 | P.HP_ITS ---
Providers/Chief Complaint Admitting Physician: Rusty Guthrie M.D Primary Care Provider: Melina Weeks MD Chief Complaint: le peripheral diagnositic History of Present Illness Eliana Samuels is a 70 year old female with a past medical history of CABGX2 with history of wound dehiscence status post multiple debridements, wound VAC, postoperative atrial fibrillation on amiodarone, CKD, bilateral lower extremity edema insulin-dependent type 2 diabetes mellitus, hypothyroidism on liothyronine and levothyroxine, who had recent revascularization of the right lower extremity with balloon angioplasty of right PT. She has nonhealing ulcer on the medial aspect of the left lower extremity. She is here today for revascularization attempt on the left lower extremity. She is admitted for prehydration as per renal function is not normal and last creatinine was 1.64. Review of Systems Const: Reports: fatigue; Denies: fever(s), chills, change in weight or diaphoresis Eyes: Denies: change in vision or eye redness ENMT: Denies: throat pain, odynophagia, mouth pain or epistaxis Card: Reports: dyspnea on exertion and orthopnea; Denies: chest pain, palpitations, irregular heart rhythm, edema, syncope, pre- syncope or leg pain with exertion Resp: Denies: dyspnea, productive cough or wheezing GI: Reports: nausea; Denies: vomiting, hematemesis, hematochezia or melena : Denies: hematuria Musc: Denies: extremity swelling or joint pain Skin/Breast: Denies: rash, pruritus, erythema or new lesions Neuro: Reports: numbness in extremities and weakness in extremities; Denies: sensory changes, frequent falls, Slurred speech present or difficulty communicating thoughts Psych: Denies: anxiety, depression, irritability, suicidal ideation or homicidal ideation Endo: Denies: polyuria, polydipsia or excessive sweating Neal/Lymph: Denies: easy bruising or easy bleeding Medications/Allergies Home Medications Medication Instructions Recorded Confirmed Last Taken Type atorvastatin 20 mg PO BEDTIME #30 tab 12/02/19 09/21/20 09/05/20 20:00 Rx meclizine 25 mg PO TID PRN #10 tab 12/02/19 09/21/20 08/27/20 Rx amiodarone 200 mg tablet 200 mg PO QAM 05/11/20 09/21/2009/06/20 05:00 History One-A-Day Women's 50 Plus 1 tab PO DAILY 06/12/20 09/21/20 09/06/20 05:00 History duloxetine [Cymbalta] 30 mg PO QAM 08/09/20 09/21/20 09/05/20 20:00 History hydrocodone-acetaminophen 1 tab PO Q8H PRN 08/09/20 09/21/20 09/05/20 History lidocaine HCl See Rx Instructions .ROUTE .COMPLEX 08/09/20 09/21/20 09/06/20 History nystatin See Rx Instructions .ROUTE .COMPLEX 08/09/20 09/21/20 Unknown History cilostazol 100 mg tablet 100 mg PO BID 30 Days #60 tab 08/26/20 09/21/20 09/06/20 05:00 Rx levothyroxine 88 mcg PO QAM 09/03/20 09/21/20 09/06/20 05:00 History pantoprazole 40 mg PO QAM 09/03/20 09/21/20 09/06/20 05:00 History metoprolol tartrate 50 mg tablet 25 mg PO BID tab 09/14/20 09/21/20 Unknown History oxycodone 5 mg tablet 5 mg PO .bedtime PRN tab 09/14/20 09/21/20 Unknown History clopidogrel 75 mg PO QAM 09/21/20 09/21/20 Unknown History Allergies Allergy/AdvReac Type Severity Reaction Status Date / Time No Known Allergies Allergy Verified 09/14/20 09:12 PFSH Acute PFSH: Medical History (Updated 09/22/20 @ 08:36 by Rusty Guthrie M.D) Acute on chronic diastolic (congestive) heart failure Anemia Atherosclerotic heart disease of [place] coronary artery without angina pectoris Benign essential hematuria Benign essential hypertension with target blood pressure below 140/90 CAD (coronary artery disease) Chronic kidney disease 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 Dyslipidemia Intermittent atrial fibrillation NSTEMI (non-ST elevated myocardial infarction) Postoperative atrial fibrillation SOB (shortness of breath) Sternal wound dehiscence Surgical History H/O hysterectomy for benign disease Status post aorto-coronary artery bypass graft Family History Brother CAD (coronary artery disease), Onset Age: 59 of myocardial infarction at age 59 Father CAD (coronary artery disease), Onset Age: 55 Had open heart surgery x3 Grandfather CAD (coronary artery disease), Onset Age: 55 Also of myocardial infarction in the late 50s Social History Smoking and tobacco status: former smoker Alcohol intake: never Vitals/I&O/Wt Last Vital Signs Temp 97.9 F 09/21/20 15:10 Pulse 89 09/21/20 15:10 Resp 17 09/21/20 17:46 BP 145/59 09/21/20 15:10 Pulse Ox 97 09/21/20 17:46 Weight last 48 hrs Weight 157 lb Physical Exam Narrative: EXAM NARRATIVE: GENERAL: The patient is alert and oriented times three. Not in any acute distress. HEENT: Mild pallor. No icterus or lymphadenopathy.Oral cavity: There are no mucous membrane lesions. NECK: Trachea appears to be central. No masses noted. No JVD or thyromegaly appreciated. RESPIRATORY: Chest is symmetrical. No intercostals muscle retraction or any acc essory muscle activation. There is no chest wall tenderness. Breath sounds are heard bilaterally. No rales or rhonchi heard. No evidence of any consolidation. BREASTS: Deferred. HEART: The heart sounds are normal. No S3 or S4. No significant murmurs. No pericardial rub ABDOMEN: No vessel pulsations or distention. No tenderness. No organomegaly appreciated. Bowel sounds are normally heard. : Deferred. RECTAL: Deferred. LYMPHATIC: No lymphadenopathy noted in the neck or groin. EXTREMITIES: 2+ edema both lower extremities. Large, bone deep ulcer on the anterolateral aspect of the right leg. Gangrene is little toe on the right side. Multiple superficial ulcers on the left leg. MUSCULOSKELETAL: No acute joint deformities or swelling SKIN: There are no significant rashes or ecchymosis NEUROPSYCHIATRIC: The patient is alert and oriented x3. Appears to be in a good mood. No tremors or rigidity noted. Urinary Catheter Management^: [place]: Cath Placed During This Visit: yes Reason for Continuing Indwelling Catheter: Accurate Measurement of Urinary Output in Critically Ill Patients Urinary Catheter Date of Insertion: 09/06/20 Urinary Catheter Time of Insertion: 11:31 Data : 09/22/20 06:41 09/22/20 06:41 A&P Assessment and plan (1) PAD (peripheral artery disease): Status: Acute (2) Leg wound, left: Status: Acute (3) Leg wound, right: Status: Acute (4) Atherosclerotic heart disease of [place] coronary artery without angina pectoris: Status: Acute Qualifiers: [place] vs. transplanted heart: [place] heart Qualified Code(s): I25.10 - Atherosclerotic heart disease of [place] coronary artery without angina pectoris (5) Chronic kidney disease: Status: Acute Qualifiers: Chronic kidney disease stage: stage 3 (moderate) Qualified Code(s): N18 .3 - Chronic kidney disease, stage 3 (moderate) (6) Accelerated essential hypertension: Status: Chronic (7) Critical lower limb ischemia: Status: Acute Patient is admitted for prehydration prior to attempt at revascularization of left lower extremity. She has critical limb ischemia bilaterally and has open wounds and ulcers on bilateral lower extremities. Right lower extremity un derwent revascularization with balloon angioplasty of the right PT. Plan is for staged revascularization attempt of the left lower extremity. We will initiate IV fluids. Close monitoring of BMP. Continue current medications and wound care. N.p.o. past midnight. Attestations Medical Necessity Statement*: Care expected to cross 2 midnights. Patient here for prehydration and revascularization of lower extremities. Coding Level of Care Code Acute Practice Managers for Hillary Lambert Diagnoses PAD (peripheral artery disease) I73.9 Leg wound, left S81.802A Leg wound, right S81.801A Atherosclerotic heart disease of [place] coronary artery without angina pectoris I25.10 [place] vs. transplanted heart: [place] heart Chronic kidney disease N18.3 Chronic kidney disease stage: stage 3 (moderate) Accelerated essential hypertension I10 Critical lower limb ischemia I99.8
--- NOTE | 2020-09-21 18:14 | PC.NURSE ---
No pain relief after Fentanyl IVP given Pt still grimacing and crying for pain per flacc and pain scale 10/[address] and received telephone order read back to give Morphine IVP 2 mg q4h PRN for pain. Morphine given as ordered. Will monitor for pain mgt.
[2020-09-21] MEDS: HYDROcodone-acetaminophen 5-325 mg Tablet 1 TAB PO (18:50)
[2020-09-21] MEDS: cilostazol 100 mg Tablet PO (18:50)
[2020-09-21] MEDS: metoprolol tartrate 25 mg Tablet PO (18:50)
[2020-09-21] MEDS: oxyCODONE 5 mg IR Tab/Cap PO (20:48)
[2020-09-21] MEDS: atorvastatin 40 mg Tablet 20 MG PO (20:49)
--- NOTE | 2020-09-21 22:15 | PC.NURSE ---
Called Dr. Stewart regarding patients burning pain in her legs. told what medications patients has been given and about her wounds. Orders received for a x1 gabapentin 300mg PO. Read back verbal order.
[2020-09-21] MEDS: gabapentin 300 mg Capsule PO (22:34)
[2020-09-22] VITALS (42 sets, daily range): BP systolic 92–141; BP diastolic 55–82; PULSE 79–95; RESP 14–48; TEMP 36.4–36.8; O2SAT 67–97
--- NOTE | 2020-09-22 00:30 | PC.NURSE ---
Patient is asleep and in no pain. Patient did not want midnight vitals so she could get some rest.
[2020-09-22] MEDS: sodium chloride 0.9% 1,000 ML 75 ML IV (03:09)
[2020-09-22] MEDS: morphine 4 mg/mL SDV 1 mL 2 MG IVP ×2 (05:53→16:12)
[2020-09-22] MEDS: diphenhydrAMINE 50 mg Capsule PO (05:59)
[2020-09-22] MEDS: pantoprazole DR 40 mg Tablet PO (05:59)
[2020-09-22] MEDS: amiodarone 200 mg Tablet PO (05:59)
[2020-09-22] MEDS: levothyroxine 88 mcg Tablet PO (05:59)
[2020-09-22] MEDS: clopidogrel 75 mg Tablet PO (05:59)
[2020-09-22] MEDS: duloxetine 30 mg Capsule PO (05:59)
--- NOTE | 2020-09-22 06:00 | XACV_ITS ---
Ht: 168 cm Wt: 71 kg BSA: 1.83 m2 Any Known Allergies: No known allergies Gender: Female : 1950 Exam Type: Invasive Peripheral Vascular Procedure(s): Procedure Description: Peripheral Cath Diagnostic Procedure Procedure Description: Peripheral vascular Intervention Procedure Description: PV Balloon Procedure Description: PV Atherectomy Exam Priority: Routine Lower Extremity Diagnostic Findings Please see diagnostic procedure report from 09/06/2020, for the left lower extremity angiogram findings. Briefly, SFA had severe mid to distal disease. The popliteal artery was found to be totally occluded . The anterior tibial was found to be totally occluded. Peroneal artery had poor flow. Bridging collaterals were noted in the midsegment of these arteries. The posterior tibial artery also appeared to be totally occluded proximally. The artery appears to reconstitute at the mid segment through collaterals.. Lower Extremity Interventional Findings We obtained access in left posterior tibial artery using a 6 [place] sheath. A Glidewire was used to cross the posterior tibial artery subtotal stenosis and was used to cross the stenosis in SFA. Seeker catheter was used to switch the wire to a Viper wire. We performed orbital arthrectomy of posterior tibial artery and SFA artery. This was followed by balloon angioplasty of posterior tibial artery using a 2.0 x 120 cm balloon. We then performed balloon angioplasty ofmid SFA using 6.0 x 250 mm [id number] balloon. At this time final angiogram was performed. Which showed excellent flow in the SFA. No residual stenosis was noted. Below the knee angiogram showed patent posterior tibial artery and peroneal artery. Anterior tibial artery had chronic total occlusion with excellent collaterals. At this time we decided to stop the procedure. Glidewire was removed. PT sheath was removed and TR band was applied. Patient left the Maintainer Operator in stable condition.. Conclusions Left posterior tibial artery was treated with orbital arthrectomy and balloon angioplasty. Left SFA was treated with orbital atherectomy and balloon angioplasty. Recommendations Continue Plavix and Cilostazol. Aggressive risk factor modification. Follow up with cardiology as out patient. Anticoagulation: Heparin Access Site Site: Left Popliteal Sheath Size: 6 Fr Hemost... Method: TR Band Hemost... Success: Successful Procedure Details Findings Procedure Consent Obtained. Admit Source: In Patient. Pre-Procedure Time Out. Identified patient by full name and date of as verbalized by the patient/guarantor. Does the consent match the physician's order: Yes. Accurate & Complete Informed Consent: Yes. Inpatient/Outpatient History & Physical on Chart: Yes. If H&P is completed, is and addenduem needed: N/A; If yes, is the addendum complete: N/A. Visualize and Verify Site with Patient/Guarantor: N/A. Relevant Radiology Images available: N/A. Pre-op teaching completed and patient verbalized understanding. The risks, benefits, and alternatives of sedation and/or procedure were discussed by physician. The patient agrees to continue. Procedure started. Correct patient, site and procedure confirmed by cath team. PERRLA. Strong, equal hand pony roll finisher bilaterally. Lungs clear x 5 lobes. IV Site on Arrival: 22 gauge in the right forearm. Pre Procedural Pulses: bilateral dorsalis pedis was 2+. Pre Procedural Pulses: bilateral radial was 3+. Oxygen started at 2liters/min via nasal canula. Left Tibial was prepped with chloroprep then draped in the usual sterile fashion. Physician notified. Baseline sample Acquired. HR: 84 BPM. Physician arrived. bilateral groins was prepped with chloroprep then draped in the usual sterile fashion. Physician scrubbed in. Immediate Pre-Procedure Time Out. Correct Patient: Yes; Correct Procedure: Yes; Correct Site: Yes; Correct Patient Position: Yes; Correct Supplies: Yes; Dried Flammable Prep: Yes; Blood Products Available: N/A;. ultra sound arrived. Lidocaine 1% infiltrated to the left PT area. Arterial access obtained. [place] wire inserted. Trailblazer catheter inserted over the wire. wire in SFA. advancing the Trailblazer. Dr. Stewart scrubbed in to stand by. Trailblazer is in the Left Illiac. Viper wire in through seeker parked in the Left Illiac. trailblazer out. loading Monique. Rose[place] performed in the Posterial tibial. monique performed in the SFA. monique out. Inflation number : 1 A AB ARMADA 14 OTW [id number] was prepped and advanced across the Posterior Tibial, Left Posterior Tibial, Left , then inflated to 8 MIRTA for 2:04 seconds. Inflation number: 2 The AB ARMADA 14 OTW [id number] was reinflated across the Posterior Tibial, Left Posterior Tibial, Left, to 8 MIRTA for 2:01 seconds. Balloon out. seeker inserted over the viperwire. seeker is parked in the left common femeral. viperwire out. glidewire inserted. Wire parked in the distal aorta. seeker out. Inflation number : 1 A AB Bern 35 FASHION STYLING INTERN Catheter [id number] was prepped and advanced across the Mid Superficial Femoral, Left1 , then inflated to 6 MIRTA for 2:04 seconds. Balloon out. seeker inserted over the glidewire. handinjection performed. handinjection performed. glidewire in. wire parked in the AP. seeker inserted. handinjection performed. family updated. seeker out. wire out. A TR Band was successful obtaining hemostatsis at the Left Popliteal insertion site. TR band placed. Hemostasis obtained. On PT. Post Procedure: Pulses reassessed and unchanged. PERRLA. Strong, equal hand pony roll finisher bilaterally. No VTE prophylaxis required. Medication's Wasted: Other = versed 1 mg. Medication's Wasted: Other = fentanyl 50 mg. Medication's Wasted: Verapamil = 4 mg. Medication's Wasted: Heparin = 1000 units. Medication's Wasted: Nitro = 49.9 mg. Medication's Wasted: Lidocaine 1% = 15 mL. Total IV fluids: 112 mL. Contrast type used: Visipaque 320 mgI/mL, 500 mL bottle. Post-op diagnosis: severe PT and SFA disease. Complications: none. Estimated blood loss: 5mL-10mL. Procedure completed. Patient transferred by bed to 1st floor. Vital chart was stopped. Procedure Medications Start: 8:34 AM Stop: 8:34 AM Medication: Versed Amount: 1 mg Route: I.V. Start: 8:34 AM Stop: 8:34 AM Medication: Fentanyl Amount: 25 mcg Route: I.V. Start: 8:45 AM Stop: 8:45 AM Medication: Versed Amount: 1 mg Route: I.V. Start: 9:05 AM Stop: 9:05 AM Medication: Fentanyl Amount: 25 mcg Route: I.V. Start: 9:18 AM Stop: 9:18 AM Medication: Heparin Amount: 5000 units Route: I.V. Start: 9:24 AM Stop: 9:24 AM Medication: Versed Amount: 1 mg Route: I.V. Start: 9:24 AM Stop: 9:24 AM Medication: Fentanyl Amount: 25 mcg Route: I.V. Start: 9:30 AM Stop: 9:30 AM Medication: Versed Amount: 1 mg Route: I.V. Start: 9:30 AM Stop: 9:30 AM Medication: Fentanyl Amount: 25 mcg Route: I.V. Start: 9:49 AM Stop: 9:49 AM Medication: Versed Amount: 1 mg Route: I.V. Start: 9:49 AM Stop: 9:49 AM Medication: Fentanyl Amount: 25 mcg Route: I.V. Start: 10:02 AM Stop: 10:02 AM Medication: Fentanyl Amount: 25 mcg Route: I.V. History/Risk Factors Hypertension: Yes Dyslipidemia: Yes Peripheral Arterial Disease (PAD): No Obesity: No Renal Disease: No Tobacco Use: Never Prior Interventions PCI: No CABG: Yes Valve Surgery: No Report Signatures Finalized by Rusty Guthrie MD on 09/28/2020 05:23 PM
[2020-09-22 07:00] LABS: Basophils # 0.1 10^3/uL (0.0-0.1); Eosinophils # 0.2 10^3/uL (0.0-0.8); Hematocrit 27.1 % (37.0-47.0); Lymphocytes # 1.1 10^3/uL (0.8-4.8); Lymphocytes % 13.7 %; Mean Corpuscular HGB Conc 29.5 g/dL (30.0-36.0); Mean Corpuscular Hemoglobin 30.5 pg (28.0-34.0); Mean Corpuscular Volume 103.4 fL (81-99); Mean Platelet Volume 9.8 fL (7.4-10.4); Monocytes # 0.6 10^3/uL (0.2-0.9); Neutrophils % 74.7 %; Nucleated Red Blood Cells % 0 %; Platelet Count 364 10^3/cmm (130-400); Red Blood Count 2.62 10^6/uL (4.1-5.3)
[2020-09-22 07:12] LABS: INR 1.05 (0.8-1.2)
[2020-09-22 07:14] LABS: Anion Gap 11.3 (5-19); Blood Urea Nitrogen 11 mg/dL (8-23); Calcium 7.7 mg/dL (8.5-10.5); Carbon Dioxide 22 mmol/L (22-29); Chloride 105 mmol/L (98-107); Glucose 91 mg/dL (65-115); Osmolality Calculated 277 mOsm/kg (285-295); Potassium 4.3 mmol/L (3.5-5.1); Sodium 134 mmol/L (136-145)
[2020-09-22 07:17] LABS: Creatinine Clr Calc Pharmacy 52.2316
--- NOTE | 2020-09-22 07:27 | SUR.PREOP ---
ABNORMAL LAB RESULT HGB 8.0 THIS MORNING. REPORTED OFF TO DR CEDEÑO. STATES TO DRAW TYPE AND SCREEN AND PROCEED AT 0830. NOTED.
[2020-09-22] MEDS: cilostazol 100 mg Tablet PO ×2 (08:06→18:02)
[2020-09-22] MEDS: metoprolol tartrate 25 mg Tablet PO ×2 (08:06→18:02)
--- NOTE | 2020-09-22 08:30 | USCV_ITS ---
Eliana Samuels Age: 70 Gender: F : 1950 Exam Date: 09/22/2020 08:59 Ordering Phys: Rusty Guthrie M.D ([email or web address]) Technologist: Sanaz Hansen [place] [facility] [place]: GUIDANCE Findings Guidance provided in the laborer/key man Conclusions Successful ultrasound-guided access and distal left posterior tibial artery Rusty Guthrie MD (Electronically Signed) Final Date: 28 September 2020 16:21 S
--- NOTE | 2020-09-22 08:40 | W.PM.OPSUD ---
Surgery/Procedure H&P Update DATE OF PROCEDURE: September 22, 2020 DATE H&P PERFORMED: 09/21/20 H&P UPDATE INFORMATION: I have reviewed H&P completed within last 30 days, I have examined patient prior to procedure and No changes to prior documentation PREOP DIAGNOSIS: Cellulitis with necrotic wound right and left leg PLANNED PROCEDURE: Operation Date: 09/22/20 07:00 Proposed Procedures p Le Peripheral Diagnostic 98890 I99.8(Not Applicable) with intervention to left lower extremity - Rusty Guthrie M.D PATIENT REASSESSED PRIOR TO SEDATION, WITH NO CHANGE NOTED: Yes PHYSICAL EXAM: alert, oriented x 3 and clear to auscultation bilaterally AIRWAY EVAL/ANESTHESIA PLAN: ASA III, Risks, benefits & alternatives of sedation and/or procedure discussed and Patient agrees to continue as planned
--- NOTE | 2020-09-22 10:30 | PC.NURSE ---
patient back from general laborer, tr band on left ankle. no hematoma noted. call light within reach.
--- NOTE | 2020-09-22 13:29 | PC.CHAP ---
Pastoral Care Encounter/Spiritual Assessment Type of Contact [] Declined pole tester visit [] Patient/Family/Request visit [] Outpatient visit [] Follow-up visit [] Physician referral [] Code/Alert [X] Routine visit [] Staff referral [] Actively dying [] Patient sleeping [] Family support [] [] Out of room [] Palliative care [] [] Receiving care in room [] Pre-surgical visit [] Trauma [] Long length of stay [] ICU visit [] Other: Relational/Emotional Strength [] Patient feels connected with others/family/visitors/staff [] Distress [] Loneliness/isolation [] Abandonment Spirituality of Patient [] Person of Kaylen [] Attends Episcopal of their Kay[place] [] Believes in Prayer [] Reads Bible or Taoist materials [] There are Spiritual issues to be addressed Nurse Assistant Interventions [] Prayer [] Active listening [] Non-anxious presence [] Spiritual/emotional support [] Crisis/trauma care [] Spiritual counseling [] Bereavement support [] Provided bereavement packet [] Provided Bible/devotional materials [] Provided toy/stuffed animal, coloring book to patient or family member [] Provided Communion [] Anointing/[place] [] Salvation [] Completed spiritual assessment [] Other: Impact on Illness or Injury [] Angry [] Fearful [] Anxious [] Often cries [] Exhaustion [] Unable to work [] Unable to attend mu-ism [] Unable to walk/stand [] Unable to read [] Unable to drive [] Unable to eat/drink [] Unable to sleep [] Unable to be with family [] Patient intubated [] Other: Summary Time spent with patient
--- NOTE | 2020-09-22 15:15 | PC.NURSE ---
tr band removed. dressing applied at this time. call light within reach, table and needs at bedside.
--- NOTE | 2020-09-22 16:42 | PC.NURSE ---
pain medication administered due to patient complaining of severe leg pain. family at bedside. needs within reach. will continue to monitor.
[2020-09-22] MEDS: HYDROcodone-acetaminophen 5-325 mg Tablet 1 TAB PO (18:02)
--- NOTE | 2020-09-22 19:30 | PC.NURSE ---
Patient L leg dressing clean dry and intact no signs of hematoma formation.
[2020-09-22] MEDS: oxyCODONE 5 mg IR Tab/Cap PO (20:56)
[2020-09-22] MEDS: atorvastatin 40 mg Tablet 20 MG PO (20:56)
--- NOTE | 2020-09-22 23:47 | P.PN_ITS ---
Subjective Subjective: Interval history: Patient underwent arthrectomy and balloon angioplasty of the left PT and SFA. Has good flow now. This evening denies any leg pain. Her access site is normal and no evidence of hematoma is noted. Vitals/I&O/Wt Last Vital Signs Temp 98.3 F 09/22/20 20:00 Pulse 82 09/22/20 20:00 Resp 24 H 09/22/20 20:56 BP 92/61 09/22/20 20:00 Pulse Ox 95 09/22/20 20:56 09/22/20 09/22/20 09/23/20 14:59 22:59 06:59 Intake Total 360 / 360 Balance 360 / 360 Weight last 48 hrs Weight 162 lb 8 oz Weight 157 lb Physical Exam Narrative: EXAM NARRATIVE: GENERAL: The patient is alert and oriented times three. Not in any acute distress. HEENT: Mild pallor. No icterus or lymphadenopathy.Oral cavity: There are no mucous membrane lesions. NECK: Trachea appears to be central. No masses noted. No JVD or thyromegaly appreciated. RESPIRATORY: Chest is symmetrical. No intercostals muscle retraction or any accessory muscle activation. There is no chest wall tenderness. Breath sounds are heard bilaterally. No rales or rhonchi heard. No evidence of any consolidation. BREASTS: Deferred. HEART: The heart sounds are normal. No S3 or S4. No significant murmurs. No pericardial rub ABDOMEN: No vessel pulsations or distention. No tenderness. No organomegaly appreciated. Bowel sounds are normally heard. : Deferred. RECTAL: Deferred. LYMPHATIC: No lymphadenopathy noted in the neck or groin. EXTREMITIES: 2+ edema both lower extremities. Large, bone deep ulcer on the anterolateral aspect of the right leg. Multiple superficial ulcers on the left leg. MUSCULOSKELETAL: No acute joint deformities or swelling SKIN: There are no significant rashes or ecchymosis NEUROPSYCHIATRIC: The patient is alert and oriented x3. Appears to be in a good mood. No tremors or rigidity noted. Urinary Catheter Management^: [place]: Cath Placed During This Visit: no Data : 09/22/20 06:41 09/22/20 06:41 A&P Assessment and plan (1) PAD (peripheral artery disease): Status: Acute (2) Leg wound, left: Status: Acute (3) Leg wound, right: Status: Acute (4) Atherosclerotic heart disease of [place] coronary artery without angina pectoris: Status: Acute Qualifiers: [place] vs. transplanted heart: [place] heart Qualified Code(s): I25.10 - Atherosclerotic heart disease of [place] coronary artery without angina pectoris (5) Chronic kidney disease: Status: Acute Qualifiers: Chronic kidney disease stage: stage 3 (moderate) Qualified Code(s): N18.3 - Chronic kidney disease, stage 3 (moderate) (6) Accelerated essential hypertension: Status: Chronic (7) Critical lower limb ischemia: Status: Acute Patient is s/p successful arthrectomy and balloon angioplasty of the left Posterior tibial artery and SFA. Continue Plavix and Cilostazol. Continue current cardiac medications Will discharge patient tomorrow if stays stable overnight Attestations Medical Necessity Statement*: Care expected to cross 2 midnights. Patient is s/p successful arthrectomy and balloon angioplasty of the PT and SFA Coding Level of Care Code Acute Sole Edge Inker Machine for farheen Lambert Diagnoses PAD (peripheral artery disease) I73.9 Leg wound, left S81.802A Leg wound, right S81.801A Atherosclerotic heart disease of [place] coronary artery without angina pectoris I25.10 [place] vs. transplanted heart: [place] heart Chronic kidney disease N18.3 Chronic kidney disease stage: stage 3 (moderate) Accelerated essential hypertension I10 Critical lower limb ischemia I99.8
[2020-09-23] VITALS (7 sets, daily range): BP systolic 98–123; BP diastolic 52–64; PULSE 82–90; RESP 13–20; TEMP 36.4–37.3; O2SAT 91–97
--- NOTE | 2020-09-23 04:21 | PC.NURSE ---
Patient dressings are dry and intact this morning. NO signs of hematoma formation. patient states she feels better.
[2020-09-23] MEDS: duloxetine 30 mg Capsule PO (05:01)
[2020-09-23] MEDS: amiodarone 200 mg Tablet PO (05:01)
[2020-09-23] MEDS: pantoprazole DR 40 mg Tablet PO (05:01)
[2020-09-23] MEDS: HYDROcodone-acetaminophen 5-325 mg Tablet 1 TAB PO ×2 (05:01→05:36)
[2020-09-23] MEDS: levothyroxine 88 mcg Tablet PO (05:01)
[2020-09-23] MEDS: clopidogrel 75 mg Tablet PO (05:01)
[2020-09-23] MEDS: sodium chloride 0.9% 1,000 ML 75 ML IV (07:42)
[2020-09-23] MEDS: cilostazol 100 mg Tablet PO (08:25)
[2020-09-23] MEDS: metoprolol tartrate 25 mg Tablet PO (08:25)
--- NOTE | 2020-09-23 09:52 | P.DS_ITS ---
Discharge Providers Date of Admission: 09/21/20 12:47 Date of Discharge: September 23, 2020 Attending Provider at Admission: Rusty Guthrie M.D Attending Provider at Discharge: Rusty Guthrie M.D Primary Care Provider: Melina Weeks MD Diagnoses at Discharge Discharge Diagnosis (1) PAD (peripheral artery disease): Status: Acute (2) Leg wound, left: Status: Acute (3) Leg wound, right: Status: Acute (4) Atherosclerotic heart disease of [place] coronary artery without angina pectoris: Status: Acute Qualifiers: [place] vs. transplanted heart: [place] heart Qualified Code(s): I25.10 - Atherosclerotic heart disease of [place] coronary artery without angina pectoris (5) Chronic kidney disease: Status: Acute Qualifiers: Chronic kidney disease stage: stage 3 (moderate) Qualified Code(s): N18.3 - Chronic kidney disease, stage 3 (moderate) (6) Accelerated essential hypertension: Status: Chronic (7) Critical lower limb ischemia: Status: Acute Reason for Visit Reason for Visit: Prehydration prior to lower extremity intervention Hospital Course Hospital Course 70 year old woman with severe peripheral artery disease, CAD and chronic kidney disease was admitted for prehydration prior to left lower extremity revascularization. She had overnight IV hydration. Creatinine came down from 1.6 to 1. We performed successful arthrectomy and balloon angioplasty of the PT and SFA. Patient stayed stable subsequent night and is ready to be discharged today.We will continue Plavix and Cilostazol. Physical Exam Narrative: EXAM NARRATIVE: GENERAL: The patient is alert and oriented times three. Not in any acute distress. HEENT: Mild pallor. No icterus or lymphadenopathy.Oral cavity: There are no mucous membrane lesions. NECK: Trachea appears to be central. No masses noted. No JVD or thyromegaly appreciated. RESPIRATORY: Chest is symmetrical. No intercostals muscle retraction or any accessory muscle activation. There is no chest wall tenderness. Breath sounds are heard bilaterally. No rales or rhonchi heard. No evidence of any consolidation. BREASTS: Deferred. HEART: The heart sounds are normal. No S3 or S4. No significant murmurs. No pericardial rub ABDOMEN: No vessel pulsations or distention. No tenderness. No organomegaly appreciated. Bowel sounds are normally heard. : Deferred. RECTAL: Deferred. LYMPHATIC: No lymphadenopathy noted in the neck or groin. EXTREMITIES: 2+ edema both lower extremities. Large, bone deep ulcer on the anterolateral aspect of the right leg. Multiple superficial ulcers on the left leg. MUSCULOSKELETAL: No acute joint deformities or swelling SKIN: There are no significant rashes or ecchymosis NEUROPSYCHIATRIC: The patient is alert and oriented x3. Appears to be in a good mood. No tremors or rigidity noted. Urinary Catheter Management^: [place]: Cath Placed During This Visit: no Discharge Data Data Completed and Pending: Pending at discharge Category Date Time Status PLASTICS FABRICATOR request for service Routin e Exams 09/22/20 06:00 Taken CV guide vascular access [id number] Rout ine Ultrasound 09/22/20 08:30 Taken Labs from last 24 hours 09/22/20 08:18 Blood Type O Positive Rho(D) Type Positive Antibody Screen Negative Vitals: Last Vital Signs Temp 99.2 F 09/23/20 07:21 Pulse 90 09/23/20 07:21 Resp 14 09/23/20 07:21 BP 114/64 09/23/20 07:21 Pulse Ox 91 09/23/20 07:21 Discharge Plan Discharge Patient Disposition: Home Condition: Stable Prescriptions: Continued oxycodone 5 mg tablet 5 mg PO .bedtime PRN (Reason: Pain) RF: 0 metoprolol tartrate 50 mg tablet 25 mg PO BID RF: 0 amiodarone 200 mg tablet 200 mg PO QAM RF: 0 cilostazol 100 mg tablet 100 mg PO BID 30 Days Qty: 60 RF: 3 atorvastatin 40 mg Tablet 20 mg PO BEDTIME Qty: 30 RF: 0 meclizine 25 mg Tablet 25 mg PO TID PRN (Reason: Dizziness) Qty: 10 RF: 0 hydrocodone-acetaminophen 5-325 mg tablet 1 tab PO Q8H PRN (Reason: Pain) RF: 0 lidocaine HCl 2 % jelly See Rx Instructions .ROUTE .COMPLEX RF: 0 nystatin 100,000 unit/gram Powder See Rx Instructions .ROUTE .COMPLEX RF: 0 duloxetine [Cymbalta] 30 mg Capsule,Delayed Release(Dr/Ec) 30 mg PO QAM RF: 0 levothyroxine 88 mcg tablet 88 mcg PO QAM RF: 0 pantoprazole 40 mg tablet,delayed release (DR/EC) 40 mg PO QAM RF: 0 clopidogrel 75 mg tablet 75 mg PO QAM RF: 0 One-A-Day Women's 50 Plus 400-20 mcg Tablet 1 tab PO DAILY RF: 0 Discharge Orders: Discharge Order (Routine); Ordered 09/23/20 Ordered By: Rusty Guthrie Referrals: Hoa Gill MD [Physician] - 1 month Norah Burns FNP [Nurse Practitioner] - 7-10 days Discharge Diet: Cardiac Discharge Activity: Increase activity as tolerated Patient Instructions: Peripheral Vascular Angioplasty (DC) Activity Restrictions/Additional Instructions: Please do not lift more than 5 pounds for the next 5 days Discharge Attestations Time Spent in Discharge Care*: greater than 30 min Status at Discharge: Cognitive status at discharge: cognitively intact , Behavioral status at discharge: cooperative , Quality Metrics Clinical Quality Measures During this hospital stay, did patient experience: None Coding Level of Care Code Acute Barrel Lathe Operator for Jovanig Fwd Diagnoses PAD (peripheral artery disease) I73.9 Leg wound, left S81.802A Leg wound, right S81.801A Atherosclerotic heart disease of [place] coronary artery without angina pectoris I25.10 [place] vs. transplanted heart: [place] heart Chronic kidney disease N18.3 Chronic kidney disease stage: stage 3 (moderate) Accelerated essential hypertension I10 Critical lower limb ischemia I99.8
[2020-09-23] MEDS: morphine 4 mg/mL SDV 1 mL 2 MG IVP (10:23)
[2020-09-23] MEDS: oxyCODONE 5 mg IR Tab/Cap PO (10:57)
--- NOTE | 2020-09-23 12:40 | PC.NURSE ---
discharge instructions given to patient, IV removed, belongings with patient. Helped patient get dressed then wheeled to private vehicle at 1230. Daughter driving.
== END 2020-09-23 12:44 | disposition home or self-care (01) ==
PROVIDERS: Admitting Provider Internal Medicine; PCP Internal Medicine; Visit Provider Internal Medicine
DX: I73.9 Peripheral vascular disease, unspecified (principal); S81.802A Unspecified open wound, left lower leg, initial encounter; S81.801A Unspecified open wound, right lower leg, initial encounter; X58.XXXA Exposure to other specified factors, initial encounter; I25.10 Atherosclerotic heart disease of native coronary artery without angina pectoris; I99.8 Other disorder of circulatory system; Z95.1 Presence of aortocoronary bypass graft; E11.622 Type 2 diabetes mellitus with other skin ulcer; E03.9 Hypothyroidism, unspecified; E11.22 Type 2 diabetes mellitus with diabetic chronic kidney disease; I13.0 Hypertensive heart and chronic kidney disease with heart failure and stage 1 through stage 4 chronic kidney disease, or unspecified chronic kidney disease; N18.30 Chronic kidney disease, stage 3 unspecified; I50.33 Acute on chronic diastolic (congestive) heart failure; Z87.891 Personal history of nicotine dependence; Z79.02 Long term (current) use of antithrombotics/antiplatelets
CPT/HCPCS: 12345; 36415; 37225; 37228; 76937; 80048; 85025; 85610; 86850; 86900; 96360; 96361; 96375; C1724; C1725; C1769; C1887; C1894; G0378; G0379; J1644; J2250; J2270; J3010; J3490; J7030; Q0163; Q9967

== ENCOUNTER → 2020-09-27 15:06 | Outpatient (BNVA) | payer MEDICARE, SELFPAY | PROVIDERS: PCP Internal Medicine; Visit Provider Internal Medicine Cardiovascular Disease | DX: I50.33 Acute on chronic diastolic (congestive) heart failure (principal); R60.0 Localized edema; Z79.01 Long term (current) use of anticoagulants; R06.02 Shortness of breath; I48.91 Unspecified atrial fibrillation | CPT/HCPCS: 80048; 83880; 85025 ==

== ENCOUNTER 2020-09-28 15:54 | Outpatient (CLI) | payer MEDICARE, SELFPAY | END 2020-09-28 15:55 | disposition home or self-care (01) | LOC: WOUND 16:01 | PROVIDERS: PCP Internal Medicine; Visit Provider Nurse Practitioner Family | DX: L89.612 Pressure ulcer of right heel, stage 2 (principal); E11.622 Type 2 diabetes mellitus with other skin ulcer; L97.812 Non-pressure chronic ulcer of other part of right lower leg with fat layer exposed; L97.822 Non-pressure chronic ulcer of other part of left lower leg with fat layer exposed; E11.621 Type 2 diabetes mellitus with foot ulcer; L97.512 Non-pressure chronic ulcer of other part of right foot with fat layer exposed | CPT/HCPCS: 99215 ==

== ENCOUNTER 2020-10-05 07:00 | Outpatient (CLI) | payer MEDICARE, SELFPAY | END 2020-10-05 07:01 | disposition home or self-care (01) | LOC: LAB 07-17 13:14 | PROVIDERS: PCP Internal Medicine; Visit Provider Internal Medicine | DX: Z01.812 Encounter for preprocedural laboratory examination (principal); Z20.828 Contact with and (suspected) exposure to other viral communicable diseases | CPT/HCPCS: 87635 ==

== ENCOUNTER 2020-10-05 14:48 | Outpatient (CLI) | payer MEDICARE, SELFPAY | END 2020-10-05 14:49 | disposition home or self-care (01) | LOC: WOUND 14:51 | PROVIDERS: PCP Internal Medicine; Visit Provider Thoracic Surgery (Cardiothoracic Vascular Surgery) | DX: L89.612 Pressure ulcer of right heel, stage 2 (principal); E11.622 Type 2 diabetes mellitus with other skin ulcer; L97.812 Non-pressure chronic ulcer of other part of right lower leg with fat layer exposed; L97.822 Non-pressure chronic ulcer of other part of left lower leg with fat layer exposed; L97.512 Non-pressure chronic ulcer of other part of right foot with fat layer exposed; E11.621 Type 2 diabetes mellitus with foot ulcer | CPT/HCPCS: 11042; 11045 ==

== ENCOUNTER 2020-10-08 08:24 | Day surgery (SDC) | payer MEDICARE, SELFPAY ==
[2020-10-07 09:24] VITALS: BMI 23.7
--- NOTE | 2020-10-07 10:09 | P.ANESASSM_ITS ---
Pre-Anesthetic Assessment Pre-Anesthetic Assessment: Height/Weight: Height 1.68 m Weight 66.678 kg Preop Diagnosis: Nonhealing wounds Of lower extremities Proposed Procedure: Operation Date: 10/08/20 10:00 Proposed Procedures p Debridement of lower extremities L97.822 L97.819 E11.622 [id number](Bilateral) - Juan Stanford MD Familial anesthetic complications: None Social: Social History: No alcohol and No tobacco Comment: former smoker Exam: Pre-Anes Outpt Exam: alert, oriented x 3, clear to auscultation bilaterally and regular rate & rhythm Airway: Cervical ROM: WNL MP: 1 Dentition: Other (missing) CV/HEM: CV/HEM: Afib, Anemia, CAD, CHF, HTN and OR Comments: CABG in November w/ sternal wound dehiscence : : Chronic renal Insufficiency Metabolic: Metabolic: Thyroid Musc/skel: Musc/skel: Scoliosis Anesthetic Plan: ASA status: 4 Anesthesia: General Other: MAC if able Risk of > 500 ml blood loss (7ml/kg in children): No PFSH Anesthesia PFSH: Medical History Acute on chronic diastolic (congestive) heart failure Anemia Atherosclerotic heart disease of [place] coronary artery without angina pectoris Benign essential hematuria Benign essential hypertension with target blood pressure below 140/90 Blisters of multiple sites CAD (coronary artery disease) Chronic kidney disease 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 Dyslipidemia Intermittent atrial fibrillation Leg edema NSTEMI (non-ST elevated myocardial infarction) Postoperative atrial fibrillation SOB (shortness of breath) Sternal wound dehiscence Surgical History H/O hysterectomy for benign disease Status post aorto-coronary artery bypass graft Family History Brother CAD (coronary artery disease), Onset Age: 59 of myocardial infarction at age 59 Father CAD (coronary artery disease), Onset Age: 55 Had open heart surgery x3 Grandfather CAD (coronary artery disease), Onset Age: 55 Also of myocardial infarction in the late 50s Social History Smoking and tobacco status: former smoker Alcohol intake: never Data Anesthesia Cardiac Studies: No Data to Display
[2020-10-07 10:15] LABS: Basophils # 0.1 10^3/uL (0.0-0.1); Basophils % 0.6 %; Eosinophils # 0.1 10^3/uL (0.0-0.8); Hematocrit 29.6 % (37.0-47.0); Hemoglobin 9.5 g/dL (11.5-15.3); Mean Corpuscular HGB Conc 32.1 g/dL (30.0-36.0); Mean Corpuscular Volume 93.4 fL (81-99); Mean Platelet Volume 9.9 fL (7.4-10.4); Monocytes # 0.6 10^3/uL (0.2-0.9); Neutrophils # 12.21 10^3/uL (1.8-7.7); Neutrophils % 86.8 %; Nucleated Red Blood Cells % 0 %; Platelet Count 559 10^3/cmm (130-400); Red Blood Count 3.17 10^6/uL (4.1-5.3); Red Cell Distribution Width 15.1 % (12.1-15.1); White Blood Count 14.1 10^3/uL (4.0-10.0)
[2020-10-07 10:34] LABS: Alanine Aminotransferase 26 U/L (0-33); Albumin Level 2.7 g/dL (3.5-5.2); Alkaline Phosphatase 207 IU/L (35-105); Anion Gap 17.2 (5-19); Aspartate Amino Transferase 37 U/L (0-32); Blood Urea Nitrogen 31 mg/dL (8-23); Calcium 8.6 mg/dL (8.5-10.5); Carbon Dioxide 25 mmol/L (22-29); Chloride 91 mmol/L (98-107); Globulin 4.2 g/dL (1.3-4.6); Glucose 108 mg/dL (65-115); Osmolality Calculated 275 mOsm/kg (285-295); Potassium 4.2 mmol/L (3.5-5.1); Sodium 129 mmol/L (136-145); Total Bilirubin 0.4 mg/dL (0.15-1.2); Total Protein 6.9 g/dL (6.6-8.7)
[2020-10-07 10:36] LABS: INR 0.91 (0.8-1.2)
[2020-10-08] VITALS (18 sets, daily range): BP systolic 109–154; BP diastolic 50–86; PULSE 66–110; RESP 12–20; TEMP 36.2–36.8; O2SAT 94–100
[2020-10-08] MEDS: sodium chloride 0.9% 1,000 ML 30 ML IV (09:30)
[2020-10-08] MEDS: fentaNYL 50 mcg/mL INJ 2mL 100 MCG IVP (09:31)
[2020-10-08] MEDS: vancomycin 1,000 MG in sodium chloride 0.9% 250 ML 250 MG IV (09:36)
--- NOTE | 2020-10-08 09:36 | P.ANESUD_ITS ---
Pre-Anesthetic Update Pre-Anesthetic Assessment: Date of Surgery/Procedure: 10/08/20 Preop Tangela gnosis: Nonhealing wounds Of lower extremities Proposed Procedure: Operation Date: 10/08/20 10:00 Proposed Procedures p Debridement of lower extremities L97.822 L97.819 E11.622 [id number](Bilateral) - Juan Stanford MD Any changes to Pre-Anesthetic Assessment?: No Last Intake: Intake Last Liquid Date 10/08/20 Last Liquid Time 07:30 Last Solid Date 10/07/20 Last Solid Time 19:30 Labs Last 48hrs: Laboratory Results - last 48 hr 10/07/20 10/07/20 10/07/20 09:40 09:40 09:40 WBC 14.1 H RBC 3.17 L Hgb 9.5 L Hct 29.6 L MCV 93.4 MCH 30.0 MCHC 32.1 RDW 15.1 Plt Count 559 H MPV 9.9 Neut % (Auto) 86.8 Lymph % (Auto) 7.0 [place] % (Auto) 4.0 Eos % (Auto) 1.0 Baso % (Auto) 0.6 Neut # (Auto) 12.21 H Lymph # (Auto) 1.0 [place] # (Auto) 0.6 Eos # (Auto) 0.1 Baso # (Auto) 0.1 Nucleated RBC % (a uto) 0 Nucleated RBCs # 0.0 PT 12.60 INR 0.91 Sodium Potassium Chloride Carbon Dioxide Anion Gap BUN Creatinine GFR Calculation Glucose Calculated Osmolal ity Calcium Total Bilirubin AST ALT Alkaline Phosphata se Total Protein Albumin Globulin Blood Type O Positive Rho(D) Type Positive Antibody Screen Negative Crossmatch See Detail 10/07/20 09:40 WBC RBC Hgb Hct MCV MCH MCHC RDW Plt Count MPV Neut % (Auto) Lymph % (Auto) [place] % (Auto) Eos % (Auto) Baso % (Auto) Neut # (Auto) Lymph # (Auto) [place] # (Auto) Eos # (Auto) Baso # (Auto) Nucleated RBC % (a uto) Nucleated RBCs # PT INR Sodium 129 L Potassium 4.2 Chloride 91 L Carbon Dioxide 25 Anion Gap 17.2 BUN 31 H Creatinine 2.5 H GFR Calculation Not Reportable Glucose 108 Calculated Osmolal ity 275 L Calcium 8.6 Total Bilirubin 0.4 AST 37 H ALT 26 Alkaline Phosphata se 207 H Total Protein 6.9 Albumin 2.7 L Globulin 4.2 Blood Type Rho(D) Type Antibody Screen Crossmatch Vitals: Temperature 98.3 F 10/08/20 09:19 Temperature Source Temporal Artery S can 10/08/20 09:19 Pulse Rate 85 10/08/20 09:19 Respiratory Rate 16 10/08/20 09:31 Respiratory Effort 10/08/20 09:31 Respiratory Depth Normal 10/08/20 09:31 Respiratory Patter n 10/08/20 09:31 Blood Pressure 136/60 10/08/20 09:19 Blood Pressure Darlene n 85 10/08/20 09:19 Pulse Oximetry 95 10/08/20 09:31 Oxygen Delivery Me thod 10/08/20 09:19 Exam: Pre-Anes Outpt Exam: alert, oriented x 3, clear to auscultation bilaterally and regular rate & rhythm Cardiac Studies: No Data to Display
--- NOTE | 2020-10-08 10:13 | W.PM.OPSUD ---
Surgery/Procedure H&P Update DATE OF PROCEDURE: October 08, 2020 DATE H&P PERFORMED: 10/05/20 H&P UPDATE INFORMATION: I have reviewed H&P completed within last 30 days, I have examined patient prior to procedure and No changes to prior documentation PREOP DIAGNOSIS: Nonhealing wounds Of lower extremities PLANNED PROCEDURE: Operation Date: 10/08/20 10:00 Proposed Procedures p Debridement of lower extremities L97.822 L97.819 E11.622 [id number](Bilateral) - Juan Stanford MD
[2020-10-08] MEDS: ceFAZolin 1,000 mg SDV 1000 MG IRRIGATION (11:36)
--- NOTE | 2020-10-08 11:49 | P.OP_ITS ---
Operative Report Date of procedure: October 08, 2020 Pre-op Diagnosis: Nonhealing wounds Of lower extremities Post-op diagnosis: same Procedure Done: Excisional debridement of right and left lower extremity wounds with placement of wound VAC bilaterally Specimens removed/disposition: Tissue culture from right lower extremity wound Surgeon: Juan Stanford Anesthesia: General Estimated blood loss (mL): 100 Complications: None Condition: stable Disposition: same day Brief History: Ms. Melara is a 70-year-old female who we have been following in wound care services with bilateral lower extremity large ulcerations and become extremely painful and difficult to manage with outpatient debridement. She was electively admitted for planned debridement under anesthesia and placement of wound VAC dressings to the lower extremities bilaterally. Rationale for this was carefully discussed with Ms. Melara and her daughter. All questions were answered. Appropriate consents have been reviewed and signed. Due to her ongoing anemia, we have also elected to transfuse 2 units of packed RBCs while she is here. Procedure: Ms. Melara was taken operating room theater where she received laryngeal mask anesthesia after being carefully positioned. Appropriate IVs were established. We initiated transfusion of 2 units of packed RBCs as we sterilely prepped and draped both lower extremities. This is beginning on the left and then extending to the right we performed sharp debridement utilizing a #10 scalpel blade to remove any devitalized periwound tissue and as well performed debridement of exudate and biofilm. Tissue culture was obtained from the wound on the right lower extremity posteriorly where there was frankly nec rotic material. Bleeding was only modest. No undrained purulence was noted. Upon completion of debridement of the calf region bilaterally, I did perform sharp debridement of a thick eschar Over the right calcaneal region. This does not appear to extend down to the osseous tissue itself. All wounds were carefully irrigated. We then placed bilateral standard wound VAC dressings in place to 125 mm of suction. Wet-to-dry dressings were placed over the right calcaneal wound as well as a small ulceration on the plantar aspect of the right fifth metatarsal. Dimensions of all wounds are listed: Left posterior calf wound measures 6 cm in width by 8.5 cm in length by 0.3 cm in depth Right proximal posterior calf wound measures 16 cm in width by 10 cm in length by 1.2 cm in depth Right posterior calf distal wound measures 4 cm in width by 6 cm in length by 0.3 cm in depth Right calcaneal wound measures 4.5 cm in width by 5 cm in length by 0.2 cm in depth Right plantar fifth metatarsal wound measures 1.3 cm in width by 2 cm in length by 0.2 cm in depth Wound VAC dressings were applied to the left calf wound as well as the right posterior proximal and right posterior distal calf wounds. Wet-to-dry dressings were applied to the right calcaneal wound at the right plantar fifth metatarsal wound. Upon completion of dressing placements and confirmation of adequate operation, Ms. Melara was awakened from anesthesia and taken to the outpatient surgery department in stable condition to complete packed RBC transfusions. I did school adjustment counselor with her daughter at completion of the procedure. She is scheduled for follow-up at wound care services on October 12 for wound VAC dressing change.
--- NOTE | 2020-10-08 12:53 | P.PCN_ITS ---
PACU note PACU note: VSS, Good respiratory effort, report to SPANISH TUTOR Post-Anesthesia Exam: awake
--- NOTE | 2020-10-08 12:53 | PM.PACU ---
PACU note PACU note: VSS, Good respiratory effort, report to DIRECTOR OF COMMUNITY LIFE Post-Anesthesia Exam: awake
[2020-10-08] MEDS: fentaNYL 50 mcg/mL INJ 2mL IVP ×2 (12:57→13:15)
--- NOTE | 2020-10-08 13:55 | ANE.PACU2 ---
Inpatient post-anesthesia follow up: Airway intact: Yes Vital signs: Temperature 97.2 F Pulse Rate 81 Respiratory Rate 20 Blood Pressure 139/86 Pulse Oximetry 95 Oxygen Delivery Me thod Nasal Cannula Oxygen Flow Rate 2 Fraction of Inspir ed Oxygen Hydration adequate: Yes Nausea and vomiting: No Pain level: 3 Additional Comments: Sedated, but responsive.
[2020-10-08] MEDS: HYDROcodone-acetaminophen 7.5-325 mg Tablet 1 TAB PO (14:05)
[2020-10-08] MEDS: morphine 4 mg/mL SDV 1 mL IVP (14:35)
[2020-10-08] MEDS: oxyCODONE-APAP 10-325 mg Tablet 1 TAB PO (15:03)
[2020-10-08] MEDS: ketorolac 30 mg/mL INJ IM (16:04)
== END 2020-10-08 16:30 | disposition home or self-care (01) ==
PROVIDERS: PCP Internal Medicine; Visit Provider Thoracic Surgery (Cardiothoracic Vascular Surgery)
PROC: (CPT 11042; principal; 2020-10-08 10:00)
DX: E11.622 Type 2 diabetes mellitus with other skin ulcer (principal); L97.222 Non-pressure chronic ulcer of left calf with fat layer exposed; L97.212 Non-pressure chronic ulcer of right calf with fat layer exposed; L97.412 Non-pressure chronic ulcer of right heel and midfoot with fat layer exposed; L97.512 Non-pressure chronic ulcer of other part of right foot with fat layer exposed; I25.10 Atherosclerotic heart disease of native coronary artery without angina pectoris; I25.2 Old myocardial infarction; Z95.1 Presence of aortocoronary bypass graft; Z87.891 Personal history of nicotine dependence; E78.5 Hyperlipidemia, unspecified; E11.22 Type 2 diabetes mellitus with diabetic chronic kidney disease; I13.0 Hypertensive heart and chronic kidney disease with heart failure and stage 1 through stage 4 chronic kidney disease, or unspecified chronic kidney disease; N18.9 Chronic kidney disease, unspecified; I50.9 Heart failure, unspecified
CPT/HCPCS: 11042; 11045 ×2; 12345; 36415; 36430; 80053; 85025; 85610; 86850; 86900; 86920; 87070; 87077; 87176; 87186; 87205; 96365; 96374; 96375; J0131; J0690; J1885; J2270; J2405; J2704; J3010; J3370; J3490; J7030; J7050; P9016

== ENCOUNTER 2020-10-10 20:56 | Inpatient (IN) | payer MEDICARE, SELFPAY ==
[2020-10-10 20:57] VITALS: BP 114/63; PULSE 87; RESP 26; TEMP 36.3; O2SAT 96; BMI 27.4
[2020-10-10 21:04] VITALS: BP 114/63; PULSE 87; RESP 23; O2SAT 96
--- NOTE | 2020-10-10 21:04 | PC.NURSE ---
Blood Glu 87
--- NOTE | 2020-10-10 21:38 | CTR_ITS ---
PROCEDURE INFORMATION: Exam: CT Head Without Contrast Exam date and time: 10/10/2020 9:49 PM Age: 70 years old Clinical indication: Altered mental status/memory loss; Confusion or disorientation; Patient HX: AMS - confusion TECHNIQUE: Imaging protocol: Computed tomography of the head without contrast. Radiation optimization: All CT scans at this facility use at least one of these dose optimization techniques: automated exposure control; mA and/or kV adjustment per patient size (includes targeted exams where dose is matched to clinical indication); or iterative reconstruction. COMPARISON: CT head wo con* [id number] 08/09/2020 12:04 PM RADIATION DOSE METRICS: Total DLP (mGy-cm): 657.13 FINDINGS: Brain: Mild atrophy and mild white matter chronic microvascular changes are noted. No hemorrhage or CT evidence of acute infarction is seen. Cerebral ventricles: No ventriculomegaly. Bones/joints: Unremarkable. No acute fracture. Paranasal sinuses: Visualized sinuses are unremarkable. No fluid levels. Mastoid air cells: Visualized mastoid air cells are well aerated. Soft tissues: Unremarkable. CT/CT head wo con* [id number] IMPRESSION: No acute intracranial abnormality Radiation Dose CTDIVOL = (mGy): DLP = 657.13 (mGy-cm)
--- NOTE | 2020-10-10 21:38 | XR_ITS ---
WS: [id number] XR chest 1V portable [id number] REASON FOR EXAM: ams FINDINGS: Previous coronary artery bypass surgery. Marked elevation of the left hemidiaphragm with interposition of the right colon. No definite active pulmonary parenchymal or pleural disease. Degenerative arthropathy in both shoulders. Degenerative spondylosis, moderate in the mid and lower t horacic spine. XR/XR chest 1V portable [id number] IMPRESSION: No acute abnormality.
--- NOTE | 2020-10-10 21:40 | ECG_ITS ---
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: : 1950 Requested By: Jemal Guadarrama Order Number: [id number] Imtiaz MD: OSMAN OCASIO Measurements Intervals [place] Rate: 87 P: 34 IA: 151 QRS: 100 QRSD: 144 T: 33 QT: 413 QTc: 499 Interpretive Statements SINUS RHYTHM WITH OCCASIONAL VENTRICULAR PREMATURE COMPLEXES RIGHT BUNDLE BRANCH BLOCK [120+ ms QRS DURATION, UPRIGHT V1, 40+ ms S IN I/aVL/V4/V5/V6] POSSIBLE ANTERIOR MYOCARDIAL INFARCTION , PROBABLY OLD [30 ms Q WAVE IN V3/V4, OR R < 0.2 mV IN V4] Compared to ECG 12/01/2019 13:43:17 Ventricular premature complex(es) now present Myocardial infarct finding now present Sinus bradycardia no longer present Electronically Signed On 10-11-2020 18:39:11 RECRUITMENT COORDINATOR by OSMAN OCASIO [email or web address]
[2020-10-10 21:58] LABS: ABG PH Result 7.44 (7.35-7.45); Arterial Blood Gas Hematocrit 36.4 % (37-47); Base Excess ABG 0.9 mmol/L (-2.0-2.0); Blood Gas Allen Test Pos; Blood Gas Sample Site Radial, right; Blood Gas Sample Type Arterial; HCO3 ABG 24.9 mmol/L (22-26); Oxygen Device NC; PO2 ABG 70.2 mmHg (80.0-100.0)
[2020-10-10 22:15] LABS: Basophils # 0.1 10^3/uL (0.0-0.1); Basophils % 0.6 %; Eosinophils # 0.1 10^3/uL (0.0-0.8); Eosinophils % 0.3 %; Hemoglobin 11.9 g/dL (11.5-15.3); Lymphocytes # 0.8 10^3/uL (0.8-4.8); Lymphocytes % 5.7 %; Mean Corpuscular HGB Conc 32.2 g/dL (30.0-36.0); Mean Corpuscular Hemoglobin 30.7 pg (28.0-34.0); Mean Corpuscular Volume 95.4 fL (81-99); Mean Platelet Volume 10.5 fL (7.4-10.4); Monocytes # 0.7 10^3/uL (0.2-0.9); Monocytes % 4.8 %; Neutrophils # 12.98 10^3/uL (1.8-7.7); Nucleated Red Blood Cells % 0 %; Platelet Count 363 10^3/cmm (130-400); Red Blood Count 3.88 10^6/uL (4.1-5.3); Red Cell Distribution Width 15.8 % (12.1-15.1); White Blood Count 14.8 10^3/uL (4.0-10.0)
[2020-10-10 22:19] VITALS: BP 98/62; PULSE 89; RESP 26; O2SAT 94
[2020-10-10] MEDS: sodium chloride 0.9% 1,000 ML 999 ML IV (22:25)
[2020-10-10 22:26] LABS: Lactate (Lactic Acid level) 1.2 mmol/L (0.5-2.2)
[2020-10-10 22:28] LABS: Alanine Aminotransferase 29 U/L (0-33); Albumin Level 2.3 g/dL (3.5-5.2); Alkaline Phosphatase 209 IU/L (35-105); Anion Gap 16.7 (5-19); Aspartate Amino Transferase 52 U/L (0-32); Blood Urea Nitrogen 47 mg/dL (8-23); Calcium 8.5 mg/dL (8.5-10.5); Carbon Dioxide 24 mmol/L (22-29); Chloride 96 mmol/L (98-107); Globulin 3.2 g/dL (1.3-4.6); Glucose 89 mg/dL (65-115); Osmolality Calculated 286 mOsm/kg (285-295); Potassium 4.7 mmol/L (3.5-5.1); Sodium 132 mmol/L (136-145); Total Bilirubin 0.4 mg/dL (0.15-1.2); Total Protein 5.5 g/dL (6.6-8.7)
[2020-10-10 22:30] LABS: Troponin(5th) Baseline 53 ng/L (0-10)
[2020-10-10 22:46] LABS: C Reactive Protein 381.3 mg/L (0.0-4.9)
[2020-10-10 22:47] VITALS: BP 100/57; PULSE 86; RESP 19; O2SAT 94
[2020-10-10 23:00] VITALS: BP 93/52; PULSE 84; RESP 15; O2SAT 95
[2020-10-10 23:21] LABS: Add Urine Microscopic? YES; Bilirubin Urine Neg (Negative); Blood Urine 3+ (Negative); Glucose Urine UA Norm (Normal); Ketones Urine Negative (Negative); Leukocyte Esterase Urine 2+ (Negative); Nitrate Urine Negative (Negative); Protein Urine Trace (Negative); Urine Appearance Hazy (CLEAR); Urine Color Yellow (Yellow); Urobilinogen Urine Norm (Negative); pH Urine 5 (5-7)
[2020-10-10 23:24] LABS: Bacteria Urine 2+ /hpf; RBC Urine 25-40 /hpf (0-2); Squamous Epithelial Cell Urine 0-4 /hpf (0-5); WBC Urine TOO NUMEROUS TO CNT /hpf (0-5)
[2020-10-10 23:25] LABS: Add Urine Culture? Yes; Hyaline Casts Urine >100 /lpf
[2020-10-11] VITALS (26 sets, daily range): BP systolic 85–118; BP diastolic 47–72; PULSE 84–91; RESP 14–23; TEMP 35.9–36.8; O2SAT 92–98
[2020-10-11 00:19] LABS: Troponin 5 2HR 41.68 ng/L (0-10)
[2020-10-11] MEDS: cefTRIAXone 1,000 MG in sodium chloride 0.9% (plus) 50 ML 100 MG IV (01:42)
[2020-10-11] MEDS: sodium chloride 0.9% 1,000 ML 125 ML IV (03:05)
--- NOTE | 2020-10-11 03:46 | W.ED.AMS ---
HPI - Altered Mental Status General: Chief Complaint: Altered Mental Status Stated Complaint: AMS Time Seen by Provider: 10/10/20 21:16 History of Present Illness: HPI narrative: 70-year-old female presents with mental status changes. She had undergone recent surgery to her bilateral lower extremities for wound VAC placement because of chronic skin ulcerations. They had trouble controlling her pain following surgery, and she got doses of pain medication. She had also gotten a couple of doses at home, but has not had any pain medication in the last 24 hours or so. She is still quite drowsy, and according to her daughter had been talking to people in the room that were not necessarily there, as well as been significantly confused otherwise. No overt fever. She has had a Mayorga placed since the surgery as well. complaint: altered mental status and confusion Onset (ago): day(s) (1) Timing confirmed by: family member and caregiver Severity: moderate Consistency of symptoms: Getting Worse Context: change in medication Associated symptoms: Reports auditory hallucinations Review of Systems Const: Denies: fever(s) Eyes: Denies: change in vision ENMT: Denies: odynophagia or sinus pain Card: Denies: chest pain, palpitations or irregular heart rhythm Resp: Denies: dyspnea, productive cough, non-productive cough or wheezing GI: Denies: abdominal pain or melena : Denies: dysuria or hematuria Musc: Denies: neck pain or joint warmth Skin/Breast: Denies: rash or erythema Neuro: Reports: confusion; Denies: headache(s), dizziness or vertigo Psych: Reports: auditory hallucinations PFS ED PFSH: Medical History Acute on chronic diastolic (congestive) heart failure Anemia Atherosclerotic heart disease of [place] coronary artery without angina pectoris Benign essential hematuria Benign essential hypertension with target blood pressure below 140/90 Blisters of multiple sites CAD (coronary artery disease) Chronic kidney disease 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 Dyslipidemia Intermittent atrial fibrillation Leg edema NSTEMI (non-ST elevated myocardial infarction) Postoperative atrial fibrillation SOB (shortness of breath) Sternal wound dehiscence Surgical History H/O hysterectomy for benign disease Status post aorto-coronary artery bypass graft Family History Brother CAD (coronary artery disease), Onset Age: 59 of myocardial infarction at age 59 Father CAD (coronary artery disease), Onset Age: 55 Had open heart surgery x3 Grandfather CAD (coronary artery disease), Onset Age: 55 Also of myocardial infarction in the late 50s Social History Smoking and tobacco status: former smoker Alcohol intake: never Physical Exam Const: GENERAL APPEARANCE: ill appearing and frail appearing ORIENTATION/CONSCIOUSNESS: Yes oriented to person and Yes oriented to place; not oriented to time HENMT: COMMON NORMALS: normocephalic, external ears normal and Normal external nose present HEAD & SCALP: normocephalic FACE & SINUS: normal facial exam NOSE: Normal external nose present and No nasal discharge present EXTERNAL EAR: Yes external ears normal Eye: COMMON NORMALS: Equal, round and reactive pupils present, EOMs intact bilaterally and conjunctivae normal EYELID: eyelids normal CONJUNCTIVA: Yes conjunctivae normal PUPIL: Yes Equal, round and reactive pupils present Neck/C-Spine: GENERAL: No tracheal deviation Chest: COMMONS NORMALS: normal inspection of the chest CHEST: No tenderness Resp: COMMON NORMALS: clear to auscultation bilaterally EFFORT & INSPECTION: No tachypneic, No respiratory distress, No retractions, No uses accessory muscles and No tracheal deviation AUSCULTATION: clear to auscultation bilaterally, no rhonchi, no wheezes and lung sounds not diminished Cardio: COMMON NORMALS: regular rate and regular rhythm RATE: regular rate RHYTHM: regular rhythm HEART SOUNDS: no murmurs PERIPHERAL PULSES: radial pulses present GI: INSPECTION: No abdominal distension AUSCULTATION: No Hyperactive bowel sounds present and No Hypoactive bowel sounds present PALPATION: No Guarding due to palpation present (GI) and No Rigid due to palpation PERCUSSION: no dullness to percussion and no tympanic to percussion Extremity: NARRATIVE EXTREMITY EXAM: Wound vacs in place bilateral lower extremities. No complications noted. Neuro: SENSORIUM/ORIENTATION: Yes oriented to person, Yes oriented to place and No oriented to time Course Vital Signs: Vital signs: Vital Signs Temperature 97.4 F L 10/10/20 20:57 Pulse Rate 91 10/11/20 05:00 Respiratory Rate 20 H 10/11/20 05:00 Blood Pressure 102/55 10/11/20 05:00 Pulse Oximetry 93 10/11/20 05:00 MDM - Altered Mental Status MDM Narrative: Medical decision making narrative: 70-year-old lady who is confused, generally weak, and lethargic. Recent surgery, recent Mayorga placement. Her white blood cell count is 14.8. BUN 47, creatinine 3.0 which is up for her. She has significant urinary tract infection on the urinalysis. Her head CT is negative. Her chest x-ray shows poor inspiration, but no definite infiltrate. She will be admitted for urinary tract infection with mental status changes and lethargy. Her blood pressures been mildly soft, as low as 85 systolic, but she is maintaining a map above 65, and she is not on pressors. She is on maintenance fluid currently. Pressure remained stable 104/60. She is not tachycardic. Mentation is about the same. She will be admitted, but hospitalist is not taking patients currently. Lab Data: Labs: Lab Results 10/10/20 10/10/20 10/10/20 Range/Units 21:33 21:33 21:33 WBC 14.8 H (4.0-10.0) 10^3/ uL RBC 3.88 L (4.1-5.3) 10^6/u L Hgb 11.9 (11.5-15.3) g/dL Hct 37.0 (37.0-47.0) % MCV 95.4 (81-99) fL MCH 30.7 (28.0-34.0) pg MCHC 32.2 (30.0-36.0) g/dL RDW 15.8 H (12.1-15.1) % Plt Count 363 (130-400) 10^3/c mm MPV 10.5 H (7.4-10.4) fL Neut % (Auto) 88.0 % Lymph % (Auto) 5.7 % Boundary % (Auto) 4.8 % Eos % (Auto) 0.3 % Baso % (Auto) 0.6 % Neut # (Auto) 12.98 H (1.8-7.7) 10^3/u L Lymph # (Auto) 0.8 (0.8-4.8) 10^3/u L Boundary # (Auto) 0.7 (0.2-0.9) 10^3/u L Eos # (Auto) 0.1 (0.0-0.8) 10^3/u L Baso # (Auto) 0.1 (0.0-0.1) 10^3/u L Nucleated RBC % (a uto) 0 % Nucleated RBCs # 0.0 /100WBC Specimen Type Sample Site ABG pH (7.35-7.45) ABG pCO2 (35-45) mmHg ABG pO2 (80.0-100.0) mmH g ABG HCO3 (22-26) mmol/L ABG Base Excess (-2.0-2.0) mmol/ L Addy Test Hematocrit (37-47) % O2 Delivery Device O2 Liters/Min % Carpenter Maintenance ID Sodium 132 L (136-145) mmol/L Potassium 4.7 (3.5-5.1) mmol/L Chloride 96 L (98-107) mmol/L Carbon Dioxide 24 (22-29) mmol/L Anion Gap 16.7 (5-19) BUN 47 H (8-23) mg/dL Creatinine 3.0 H (0.5-0.9) mg/dL GFR Calculation Not Reportable Glucose 89 (65-115) mg/dL Calculated Osmolal ity 286 (285-295) mOsm/k g Lactate 1.2 (0.5-2.2) mmol/L Calcium 8.5 (8.5-10.5) mg/dL Total Bilirubin 0.4 (0.15-1.2) mg/dL AST 52 H (0-32) U/L ALT 29 (0-33) U/L Alkaline Phosphata se 209 H (35-105) IU/L Troponin T Baselin e (0-10) ng/L Troponin T 120 Min [place] (0-10) ng/L Delta Troponin T (0-10) ABS# C-Reactive Protein 381.3 H (0.0-4.9) mg/L Total Protein 5.5 L (6.6-8.7) g/dL Albumin 2.3 L (3.5-5.2) g/dL Globulin 3.2 (1.3-4.6) g/dL Urine Color (Yellow) Urine Appearance (CLEAR) Urine pH (5-7) Ur Specific Gravit y (1.005-1.030) Urine Protein (Negative) Urine Glucose (UA) (Normal) Urine Ketones (Negative) Urine Blood (Negative) Urine Nitrate (Negative) Urine Bilirubin (Negative) Urine Urobilinogen (Negative) mg/dL Ur Leukocyte Veronica ase (Negative) Urine RBC (0-2) /hpf Urine WBC (0-5) /hpf Ur Squamous Epith Cells (0-5) /hpf Amorphous Sediment Urine Bacteria (NONE) /hpf Hyaline Casts /lpf Urine Yeast /hpf 10/10/20 10/10/20 10/10/20 Range/Units 21:33 21:50 22:45 WBC (4.0-10.0) 10^3/ uL RBC (4.1-5.3) 10^6/u L Hgb (11.5-15.3) g/dL Hct (37.0-47.0) % MCV (81-99) fL MCH (28.0-34.0) pg MCHC (30.0-36.0) g/dL RDW (12.1-15.1) % Plt Count (130-400) 10^3/c mm MPV (7.4-10.4) fL Neut % (Auto) % Lymph % (Auto) % Boundary % (Auto) % Eos % (Auto) % Baso % (Auto) % Neut # (Auto) (1.8-7.7) 10^3/u L Lymph # (Auto) (0.8-4.8) 10^3/u L Boundary # (Auto) (0.2-0.9) 10^3/u L Eos # (Auto) (0.0-0.8) 10^3/u L Baso # (Auto) (0.0-0.1) 10^3/u L Nucleated RBC % (a uto) % Nucleated RBCs # /100WBC Specimen Type Arterial Sample Site Radial, right ABG pH 7.44 (7.35-7.45) ABG pCO2 37.0 (35-45) mmHg ABG pO2 70.2 L (80.0-100.0) mmH g ABG HCO3 24.9 (22-26) mmol/L ABG Base Excess 0.9 (-2.0-2.0) mmol/ L Addy Test Pos Hematocrit 36.4 L (37-47) % O2 Delivery Device Nc O2 Liters/Min 2.0 % Carpenter Maintenance ID [email or web address] Sodium (136-145) mmol/L Potassium (3.5-5.1) mmol/L Chloride (98-107) mmol/L Carbon Dioxide (22-29) mmol/L Anion Gap (5-19) BUN (8-23) mg/dL Creatinine (0.5-0.9) mg/dL GFR Calculation Glucose (65-115) mg/dL Calculated Osmolal ity (285-295) mOsm/k g Lactate (0.5-2.2) mmol/L Calcium (8.5-10.5) mg/dL Total Bilirubin (0.15-1.2) mg/dL AST (0-32) U/L ALT (0-33) U/L Alkaline Phosphata se (35-105) IU/L Troponin T Baselin e 53 H (0-10) ng/L Troponin T 120 Min [place] (0-10) ng/L Delta Troponin T (0-10) ABS# C-Reactive Protein (0.0-4.9) mg/L Total Protein (6.6-8.7) g/dL Albumin (3.5-5.2) g/dL Globulin (1.3-4.6) g/dL Urine Color Yellow (Yellow) Urine Appearance Hazy A (CLEAR) Urine pH 5 (5-7) Ur Specific Gravit y 1.010 (1.005-1.030) Urine Protein Trace (Negative) Urine Glucose (UA) Norm (Normal) Urine Ketones Negative (Negative) Urine Blood 3+ H (Negative) Urine Nitrate Negative (Negative) Urine Bilirubin Neg (Negative) Urine Urobilinogen Norm (Negative) mg/dL Ur Leukocyte Veronica ase 2+ H (Negative) Urine RBC 25-40 H (0-2) /hpf Urine WBC Too numerous to c nt H (0-5) /hpf Ur Squamous Epith Cells 0-4 H (0-5) /hpf Amorphous Sediment Not Reportable Urine Bacteria 2+ H (NONE) /hpf Hyaline Casts >100 H /lpf Urine Yeast 4+ H /hpf 10/10/20 Range/Units 23:36 WBC (4.0-10.0) 10^3/ uL RBC (4.1-5.3) 10^6/u L Hgb (11.5-15.3) g/dL Hct (37.0-47.0) % MCV (81-99) fL MCH (28.0-34.0) pg MCHC (30.0-36.0) g/dL RDW (12.1-15.1) % Plt Count (130-400) 10^3/c mm MPV (7.4-10.4) fL Neut % (Auto) % Lymph % (Auto) % Boundary % (Auto) % Eos % (Auto) % Baso % (Auto) % Neut # (Auto) (1.8-7.7) 10^3/u L Lymph # (Auto) (0.8-4.8) 10^3/u L Boundary # (Auto) (0.2-0.9) 10^3/u L Eos # (Auto) (0.0-0.8) 10^3/u L Baso # (Auto) (0.0-0.1) 10^3/u L Nucleated RBC % (a uto) % Nucleated RBCs # /100WBC Specimen Type Sample Site ABG pH (7.35-7.45) ABG pCO2 (35-45) mmHg ABG pO2 (80.0-100.0) mmH g ABG HCO3 (22-26) mmol/L ABG Base Excess (-2.0-2.0) mmol/ L Addy Test Hematocrit (37-47) % O2 Delivery Device O2 Liters/Min % Carpenter Maintenance ID Sodium (136-145) mmol/L Potassium (3.5-5.1) mmol/L Chloride (98-107) mmol/L Carbon Dioxide (22-29) mmol/L Anion Gap (5-19) BUN (8-23) mg/dL Creatinine (0.5-0.9) mg/dL GFR Calculation Glucose (65-115) mg/dL Calculated Osmolal ity (285-295) mOsm/k g Lactate (0.5-2.2) mmol/L Calcium (8.5-10.5) mg/dL Total Bilirubin (0.15-1.2) mg/dL AST (0-32) U/L ALT (0-33) U/L Alkaline Phosphata se (35-105) IU/L Troponin T Baselin e (0-10) ng/L Troponin T 120 Min [place] 41.68 H (0-10) ng/L Delta Troponin T -11.32 L (0-10) ABS# C-Reactive Protein (0.0-4.9) mg/L Total Protein (6.6-8.7) g/dL Albumin (3.5-5.2) g/dL Globulin (1.3-4.6) g/dL Urine Color (Yellow) Urine Appearance (CLEAR) Urine pH (5-7) Ur Specific Gravit y (1.005-1.030) Urine Protein (Negative) Urine Glucose (UA) (Normal) Urine Ketones (Negative) Urine Blood (Negative) Urine Nitrate (Negative) Urine Bilirubin (Negative) Urine Urobilinogen (Negative) mg/dL Ur Leukocyte Veronica ase (Negative) Urine RBC (0-2) /hpf Urine WBC (0-5) /hpf Ur Squamous Epith Cells (0-5) /hpf Amorphous Sediment Urine Bacteria (NONE) /hpf Hyaline Casts /lpf Urine Yeast /hpf Discharge Plan Discharge Patient Disposition: Admitted As Inpatient Clinical Impression: Acute alteration in mental status, Acute kidney injury Urinary tract infection Qualifiers: Urinary tract infection type: acute cystitis Hematuria presence: without hematuria Qualified Code(s): N30.00 - Acute cystitis without hematuria Condition: Stable Coding Level of Care Code ED Manager [employer] 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
--- NOTE | 2020-10-11 06:32 | PC.NURSE ---
Patient placed on bed rangel because she stated she needed to go. When patient said she was done there was a small amount of liquid stool traced with bright red blood. Physician notified.
--- NOTE | 2020-10-11 07:03 | PC.NURSE ---
Report received from SHAWN Taylor at this time. This RN resumes care of patient.
--- NOTE | 2020-10-11 07:26 | PC.NURSE ---
At patients bedside. Patient resting in bed comfortably at this time. No distress noted. This RN introduced self to patient. Patient has no needs. Will continue to monitor patient.
--- NOTE | 2020-10-11 10:18 | PM.HP ---
Providers/Chief Complaint Admitting Physician: Chris Green MD Primary Care Provider: Melina Weeks MD Chief Complaint: AMS History of Present Illness Eliana Samuels is a 70 year old female that presented to the emergency department with confusion. She is sleepy when I interviewed her, which limited her history and physical somewhat. She admits she has had some hallucinations which is disturbed her. She reports she has not felt well since her discharge. She has taken some pain medicine at home. She had a catheter placed shortly before or during surgery that has been maintained. There is no history of fever, vomiting. Her operative procedure occurred October 08 which was debridement of lower extremity wounds. She reports her legs hurt whenever anybody touches them. Review of Systems General: Reports: 10 or more systems reviewed and unremarkable except in HPI and below Const: Denies: fever(s) or chills Eyes: Denies: change in vision ENMT: Denies: throat pain Card: Denies: chest pain Resp: Denies: dyspnea GI: Denies: abdominal pain : Denies: flank pain Musc: Reports: extremity pain; Denies: neck pain Skin/Breast: Denies: rash Neuro: Reports: confusion and other (Hallucinations) Psych: Denies: anxiety Endo: Denies: polyuria Neal/Lymph: Denies: easy bruising All/Imm: Denies: urticaria Medications/Allergies Home Medications Medication Instructions Recorded Confirmed Last Taken Type atorvastatin 20 mg PO BEDTIME #30 tab 12/02/19 10/11/20 10/07/20 Rx amiodarone 200 mg tablet 200 mg PO QAM 05/11/20 10/11/20 10/08/20 07:30 History One-A-Day Women's 50 Plus 1 tab PO DAILY 06/12/20 10/11/20 10/07/20 History duloxetine [Cymbalta] 30 mg PO QAM 08/09/20 10/11/20 10/07/20 History nystatin See Rx Instructions .ROUTE 08/09/20 10/11/20 Unknown History .COMPLEX PRN cilostazol 100 mg tablet 100 mg PO BID 30 Days #60 tab 08/26/20 10/11/20 10/07/20 Rx levothyroxine 88 mcg PO QAM 09/03/20 10/11/20 10/08/20 07:30 History pantoprazole 40 mg PO QAM 09/03/20 10/11/20 10/07/20 History metoprolol tartrate 50 mg tablet 25 mg PO BID tab 09/14/20 10/11/20 10/08/20 07:30 History clopidogrel 75 mg PO QAM 09/21/20 10/11/20 10/05/20 History bumetanide 2 mg tablet 2 mg PO BID #60 tab 09/28/20 10/11/20 10/07/20 Rx potassium chloride 20 mEq 20 meq PO DAILY #30 tab 09/28/20 10/11/20 10/07/20 Rx tablet,extended release hydromorphone 2 mg PO Q6H #20 tab 10/08/20 10/11/20 Unknown Rx cyclobenzaprine [Flexeril] 10 mg PO BID PRN 10/11/20 10/11/20 Unknown History fluticasone propionate [Flonase] 2 spray INTRANASAL DAILY 10/11/20 10/11/20 Unknown History hydrocodone-acetaminophen 1 - 2 tab PO Q8H PRN 10/11/20 10/11/20 Unknown History lidocaine HCl [Lidocaine Viscous] See Rx Instructions .ROUTE .COMPLEX 10/11/20 10/11/20 Unknown History nystatin 5 ml PO QID 10/11/20 10/11/20 Unknown History oxycodone 5 mg PO BEDTIME PRN 10/11/20 10/11/20 Unknown History senna 8.6 mg PO DAILY 10/11/20 10/11/20 Unknown History sennosides-docusate sodium [Colace 2 tab PO DAILY PRN 10/11/20 10/11/20 Unknown History 2-In-1] Allergies Allergy/AdvReac Type Severity Reaction Status Date / Time No Known Allergies Allergy Verified 09/27/20 14:02 PFSH Acute PFSH: Medical History (Updated 10/11/20 @ 10:30 by Chris Green MD) Accelerated essential hypertension Acute on chronic diastolic (congestive) heart failure Anemia Atherosclerotic heart disease of [place] coronary artery without angina pectoris Benign essential hematuria Benign essential hypertension with target blood pressure below 140/90 Blisters of multiple sites CAD (coronary artery disease) Chronic kidney disease 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 Dyslipidemia Glucose intolerance Hypothyroid Intermittent atrial fibrillation Leg edema NSTEMI (non-ST elevated myocardial infarction) PAD (peripheral artery disease) Postoperative atrial fibrillation SOB (shortness of breath) Sternal wound dehiscence Type 2 diabetes mellitus Surgical History H/O hysterectomy for benign disease Status post aorto-coronary artery bypass graft Family History Brother CAD (coronary artery disease), Onset Age: 59 of myocardial infarction at age 59 Father CAD (coronary artery disease), Onset Age: 55 Had open heart surgery x3 Grandfather CAD (coronary artery disease), Onset Age: 55 Also of myocardial infarction in the late 50s Social History Smoking and tobacco status: former smoker Alcohol intake: never Vitals/I&O/Wt Last Vital Signs Temp 98.2 F 10/11/20 09:00 Pulse 88 10/11/20 09:00 Resp 16 10/11/20 09:00 BP 118/72 10/11/20 09:00 Pulse Ox 93 10/11/20 09:00 10/10/20 10/11/20 10/11/20 22:59 06:59 14:59 Intake Total 0 / 0 1050 / 1050 Output Total 675 / 675 Balance 0 / 0 1050 / 1050 -675 / -675 Weight last 48 hrs Weight 77.111 kg Physical Exam Narrative: EXAM NARRATIVE: General exam is a sleepy white female, in no apparent distress. Mayorga is noted. HEENT: Pupils equally round. Oropharynx clear. Neck is supple no lymphadenopathy or thyromegaly Cardiovascular regular rate and rhythm without murmur with occasional premature beat. Lungs clear no wheezing or crackles Abdomen is soft with positive bowel sounds. No obvious organomegaly was deferred, Mayorga noted Extremities bilateral wound vacuum is on with peripheral cap refill around 2 seconds. Pulses difficult to feel. Skin see findings above Neuro no obvious focal deficits Data : 10/10/20 21:33 10/10/20 21:33 Micro: Microbiology 10/10/20 21:33 Blood Culture - Preliminary Blood SPECIMEN COLLECTED 10/10/20 21:33 Blood Culture - Preliminary Blood SPECIMEN COLLECTED Other data: EKG demonstrates sinus rhythm right axis deviation, right bundle branch block, few PVCs and no acute changes. Recent wound culture demonstrated Proteus Dust x-ray no infiltrate CT head no acute changes ABG demonstrated a pH of 7.44, PCO2 37, PO2 70 Alkaline phos 209, AST 52 Troponin 53 with repeat 42 Urinalysis too numerous to count whites, 25-40 reds 4+ yeast Lactate 1.2 A&P Assessment and plan (1) Urinary tract infection: Concern of bacterial UTI Initiate Zosyn Secondary to yeast noted fluconazole as well Status: Acute Qualifiers: Hematuria presence: without hematuria Urinary tract infection type: acute cystitis Qualified Code(s): N30.00 - Acute cystitis without hematuria (2) Encephalopathy acute: May be secondary to infection, but cannot rule out other contributors such as pain medication and renal failure Status: Acute (3) Acute kidney injury: Hydration Avoid renal toxic medication Renal ultrasound to make sure no obstruction is present Check CK. Hold statin until Status: Acute (4) Leukocytosis: Secondary to infection Status: Acute (5) Sepsis: Qualifies for sepsis secondary to leukocytosis, encephalopathy, acute kidney injury with localization of probable UTI. Lactic acid level normal. Status: Acute (6) Hyponatremia: Likely secondary to renal failure. See how this responds to saline Check TSH Status: Acute (7) PAD (peripheral artery disease): Recent debridement Recent culture demonstrated Proteus Secondary to concerns of sepsis will initiate linezolid along with Zosyn Will inform surgeon regarding admission Continue wound vacuum Status: Inactive Additional A&P Information History of paroxysmal atrial fibrillation Coronary artery disease, continue home medications History of chronic anemia. Hemoglobin today stable History of diastolic heart failure. Compensated currently. Avoid aggressive fluid resuscitation. Hold diuretics in the face of sepsis and renal failure History of hypertension History of depression. Hold duloxetine secondary to fluconazole administration Full code Heparin for DVT prophylaxis No SCDs secondary to severe peripheral vascular disease Attestations Medical Necessity Statement*: Will need greater than 2 midnight stay for evaluation and treatment of sepsis and treatment of UTI with IV antibiotics. 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
[2020-10-11 11:13] LABS: Creatine Phosphokinase 244 U/L (26-192); Thyroid Stimulating Hormone 0.39 uIU/mL (0.27-4.20)
[2020-10-11] MEDS: piperacillin-tazobactam 3.375 GM in sodium chloride 0.9% (plus) 50 ML IV ×2 (11:25→22:31)
[2020-10-11] MEDS: heparin 5,000 unit/mL INJ 1 mL 5000 UNIT SUBCUT ×2 (11:25→22:31)
[2020-10-11] MEDS: fluconazole 100 mg Tablet 200 MG PO (11:25)
[2020-10-11] MEDS: linezolid premix 600 MG/300 ML PREMIX 300 MG IV ×2 (11:41→22:31)
[2020-10-11] MEDS: oxyCODONE 5 mg IR Tab/Cap PO (12:54)
[2020-10-11] MEDS: sodium chloride 0.9% 1,000 ML 100 ML IV (15:34)
[2020-10-11] MEDS: metoprolol tartrate 50 mg Tablet 25 MG PO (17:26)
[2020-10-12] VITALS (10 sets, daily range): BP systolic 97–110; BP diastolic 60–69; PULSE 74–88; RESP 14–18; TEMP 36.3–37.1; O2SAT 93–99
--- NOTE | 2020-10-12 | US_ITS ---
WS: [id number] RENAL ULTRASOUND URINARY BLADDER ULTRASOUND HISTORY: renal failure COMPARISON: 06/28/2016. TECHNIQUE: 2-D and color Doppler imaging of the kidney submitted. Right kidney: 11.2 cm x 3.6 cm x 4.2 cm. Suspect duplicated collecting system. No hydronephrosis or mass. Left kidney: 9.7 cm x 4.2 cm x 4.0 cm. Normal echogenicity with no hydronephrosis or mass. Aorta: Mild atherosclerosis aorta. No aneurysm. Urinary Bladder: Mayorga catheter in a nondistended urinary bladder. US/US renal BI* [id number] IMPRESSION: No renal obstruction or significant atrophy.
[2020-10-12] MEDS: sodium chloride 0.9% 1,000 ML 100 ML IV (01:02)
[2020-10-12 05:17] LABS: Basophils # 0.1 10^3/uL (0.0-0.1); Basophils % 0.6 %; Eosinophils # 0.2 10^3/uL (0.0-0.8); Eosinophils % 2.1 %; Hemoglobin 9.3 g/dL (11.5-15.3); Lymphocytes # 0.8 10^3/uL (0.8-4.8); Mean Corpuscular HGB Conc 32.1 g/dL (30.0-36.0); Mean Corpuscular Hemoglobin 30.4 pg (28.0-34.0); Mean Corpuscular Volume 94.8 fL (81-99); Mean Platelet Volume 10.3 fL (7.4-10.4); Monocytes # 0.5 10^3/uL (0.2-0.9); Monocytes % 5.5 %; Neutrophils % 83.4 %; Nucleated Red Blood Cells % 0 %; Platelet Count 286 10^3/cmm (130-400); Red Blood Count 3.06 10^6/uL (4.1-5.3); Red Cell Distribution Width 16.2 % (12.1-15.1); White Blood Count 9.7 10^3/uL (4.0-10.0)
[2020-10-12] MEDS: amiodarone 200 mg Tablet PO (05:19)
[2020-10-12] MEDS: clopidogrel 75 mg Tablet PO (05:19)
[2020-10-12] MEDS: pantoprazole DR 40 mg Tablet PO (05:19)
[2020-10-12] MEDS: levothyroxine 88 mcg Tablet PO (05:19)
[2020-10-12 05:33] LABS: Alanine Aminotransferase 21 U/L (0-33); Albumin Level 1.8 g/dL (3.5-5.2); Alkaline Phosphatase 152 IU/L (35-105); Anion Gap 13.8 (5-19); Aspartate Amino Transferase 28 U/L (0-32); Blood Urea Nitrogen 44 mg/dL (8-23); Calcium 7.6 mg/dL (8.5-10.5); Carbon Dioxide 22 mmol/L (22-29); Chloride 104 mmol/L (98-107); Glucose 92 mg/dL (65-115); Osmolality Calculated 293 mOsm/kg (285-295); Potassium 3.8 mmol/L (3.5-5.1); Sodium 136 mmol/L (136-145); Total Bilirubin 0.3 mg/dL (0.15-1.2); Total Protein 4.8 g/dL (6.6-8.7)
[2020-10-12 06:04] LABS: Magnesium 1.9 mg/dL (1.7-2.3)
--- NOTE | 2020-10-12 08:50 | PC.CHAP ---
Pastoral Care Encounter/Spiritual Assessment Type of Contact [] Declined adjunct professor visit [] Patient/Family/Request visit [] Outpatient visit [] Follow-up visit [] Physician referral [] Code/Alert [] Routine visit [] Staff referral [] Actively dying [x] Patient sleeping [] Family support [] [] Out of room [] Palliative care [] [] Receiving care in room [] Pre-surgical visit [] Trauma [] Long length of stay [] ICU visit [] Other: Relational/Emotional Strength [] Patient feels connected with others/family/visitors/staff [] Distress [] Loneliness/isolation [] Abandonment Spirituality of Patient [] Person of Kaylen [] Attends Quaker of their Kaylen [] Believes in Prayer [] Reads Bible or Pentecostalism materials [] There are Spiritual issues to be addressed Securities Attorney Interventions [] Prayer [] Active listening [] Non-anxious presence [] Spiritual/emotional support [] Crisis/trauma care [] Spiritual counseling [] Bereavement support [] Provided bereavement packet [] Provided Bible/devotional materials [] Provided toy/stuffed animal, coloring book to patient or family member [] Provided Communion [] Anointing/[place] [] Salvation [] Completed spiritual assessment [] Other: Impact on Illness or Injury [] Angry [] Fearful [] Anxious [] Often cries [] Exhaustion [] Unable to work [] Unable to attend jehovah's witness [] Unable to walk/stand [] Unable to read [] Unable to drive [] Unable to eat/drink [] Unable to sleep [] Unable to be with family [] Patient intubated [] Other: Summary Time spent with patient
[2020-10-12] MEDS: fluconazole 100 mg Tablet 200 MG PO (08:52)
[2020-10-12] MEDS: oxyCODONE 5 mg IR Tab/Cap PO ×2 (08:52→14:49)
--- NOTE | 2020-10-12 09:17 | PM.PN ---
Subjective Subjective: Interval history: Eliana reports her leg still hurt. She is concerned that she is wet from her IV. She denies any chest pain or shortness of breath. I discussed with her that she may need to consider assisted placement secondary to her wounds and need for frequent wound care. Medications: Reviewed: Yes Vitals/I&O/Wt Last Vital Signs Temp 98.8 F 10/12/20 07:55 Pulse 81 10/12/20 07:55 Resp 18 10/12/20 08:52 BP 103/63 10/12/20 07:55 Pulse Ox 96 10/12/20 07:55 10/11/20 10/12/20 10/12/20 22:59 06:59 14:59 Intake Total 170 / 1470 946.667 / 2416.667 Output Total 1400 / 2750 Balance 170 / 120 -453.333 / -333.333 Weight last 48 hrs Weight 77.111 kg Physical Exam Narrative: EXAM NARRATIVE: General exam tearful, no distress Cardiovascular regular rate and rhythm without murmur with occasional premature beat. Lungs clear no wheezing or crackles Abdomen is soft with positive bowel sounds. No obvious organomegaly Extremities bilateral wound vacuum is on with peripheral cap refill around 2 seconds. Pulses difficult to feel. Wound vacuum in place bilaterally Data : 10/12/20 04:46 10/12/20 04:46 Micro: Microbiology 10/10/20 21:33 Blood Culture - Preliminary Blood NEGATIVE TO DATE 10/10/20 21:33 Blood Culture - Preliminary Blood NEGATIVE TO DATE A&P Assessment and plan (1) Urinary tract infection: Concern of bacterial UTI Continue Zosyn. Await cultures. Secondary to yeast noted fluconazole as well Status: Acute Qualifiers: Hematuria presence: without hematuria Urinary tract infection type: acute cystitis Qualified Code(s): N30.00 - Acute cystitis without hematuria (2) Encephalopathy acute: May be secondary to infection, but cannot rule out other contributors such as pain medication and renal failure This is significantly improved Status: Acute (3) Acute kidney injury: Continue hydration Renal function improving. CK was only slightly elevated, and does not need rechecked Avoid renal toxic medication Renal ultrasound to make sure no obstruction is present Status: Acute (4) Leukocytosis: Secondary to infection Resolving Status: Acute (5) Sepsis: Qualifies for sepsis secondary to leukocytosis, encephalopathy, acute kidney injury with localization of probable UTI. Lactic acid level normal. Resolving Status: Acute (6) Hyponatremia: Likely secondary to renal failure. Resolved TSH checked and normal. Status: Acute (7) PAD (peripheral artery disease): Recent debridement Recent culture demonstrated Proteus Secondary to concerns of sepsis will initiate linezolid along with Zosyn Surgery was informed regarding the patient's admission Continue wound vacuum Status: Inactive Additional A&P Information History of paroxysmal atrial fibrillation, heart rate controlled currently Coronary artery disease, continue home medications History of chronic anemia. Hemoglobin has drifted down consistent with hydration changes History of diastolic heart failure. Compensated currently. Hold diuretics currently. Reduce fluids. History of hypertension History of depression. 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
--- NOTE | 2020-10-12 09:24 | US_ITS ---
WS: [id number] RENAL ULTRASOUND URINARY BLADDER ULTRASOUND HISTORY: renal failure COMPARISON: 06/28/2016. TECHNIQUE: 2-D and color Doppler imaging of the kidney submitted. Right kidney: 11.2 cm x 3.6 cm x 4.2 cm. Suspect duplicated collecting system. No hydronephrosis or mass. Left kidney: 9.7 cm x 4.2 cm x 4.0 cm. Normal echogenicity with no hydronephrosis or mass. Aorta: Mild atherosclerosis aorta. No aneurysm. Urinary Bladder: [place] catheter in a nondistended urinary bladder.
[2020-10-12] MEDS: metoprolol tartrate 50 mg Tablet 25 MG PO ×2 (09:25→18:21)
[2020-10-12] MEDS: lidocaine 1% INJ 20 mL SUBCUT (09:28)
[2020-10-12] MEDS: linezolid premix 600 MG/300 ML PREMIX 300 MG IV ×2 (10:54→22:44)
[2020-10-12] MEDS: heparin 5,000 unit/mL INJ 1 mL 5000 UNIT SUBCUT ×2 (10:56→22:42)
--- NOTE | 2020-10-12 11:43 | PC.NURSE ---
Wound vac dressing change performed by SHAWN Han from wound care services. Lidocaine was ordered per Dr. Green for this dressing change.
[2020-10-12] MEDS: sodium chloride 0.9% 1,000 ML 75 ML IV (12:00)
[2020-10-12] MEDS: piperacillin-tazobactam 3.375 GM in sodium chloride 0.9% (plus) 50 ML IV ×2 (12:00→22:41)
[2020-10-13] VITALS (9 sets, daily range): BP systolic 98–114; BP diastolic 60–68; PULSE 71–80; RESP 14–20; TEMP 36.4–37; O2SAT 91–97
[2020-10-13] MEDS: clopidogrel 75 mg Tablet PO (05:46)
[2020-10-13] MEDS: amiodarone 200 mg Tablet PO (05:46)
[2020-10-13] MEDS: pantoprazole DR 40 mg Tablet PO (05:46)
[2020-10-13] MEDS: sodium chloride 0.9% 1,000 ML 75 ML IV (05:46)
[2020-10-13] MEDS: levothyroxine 88 mcg Tablet PO (05:46)
[2020-10-13] MEDS: fluconazole 100 mg Tablet 200 MG PO (08:24)
[2020-10-13] MEDS: oxyCODONE 5 mg IR Tab/Cap PO (08:25)
[2020-10-13] MEDS: metoprolol tartrate 50 mg Tablet 25 MG PO ×2 (08:27→18:00)
--- NOTE | 2020-10-13 11:54 | PM.PN ---
Subjective Subjective: Interval history: Eliana reports she is doing okay today. Still in pain. Medications: Reviewed: Yes Vitals/I&O/Wt Last Vital Signs Temp 97.6 F 10/13/20 11:18 Pulse 77 10/13/20 11:18 Resp 16 10/13/20 11:18 BP 114/62 10/13/20 11:18 Pulse Ox 97 10/13/20 11:18 10/12/20 10/13/20 10/13/20 22:59 06:59 14:59 Intake Total 50 / 1350 1000 / 2350 Output Total 1000 / 1000 600 / 1600 Balance -950 / 350 400 / 750 Physical Exam Narrative: EXAM NARRATIVE: General exam tired appearing but no distress Cardiovascular regular rate and rhythm without murmur with occasional premature beat. Lungs a few faint crackles Abdomen is soft with positive bowel sounds. No obvious organomegaly Extremities bilateral wound vacuum is on with peripheral cap refill around 2 seconds. Pulses difficult to feel. Wound vacuum in place bilaterally Data : 10/12/20 04:46 10/12/20 04:46 Micro: Microbiology 10/10/20 22:45 Urine Culture - Preliminary Urine,Clean Catch Gram Negative Rods A&P Assessment and plan (1) Urinary tract infection: Concern of bacterial UTI Continue Zosyn. Await cultures. Currently growing gram-negative rods Secondary to yeast noted fluconazole as well Status: Acute Qualifiers: Hematuria presence: without hematuria Urinary tract infection type: acute cystitis Qualified Code(s): N30.00 - Acute cystitis without hematuria (2) Encephalopathy acute: May be secondary to infection, but cannot rule out other contributors such as pain medication and renal failure This is significantly improved Status: Acute (3) Acute kidney injury: Continue hydration Await renal function testing today CK was only slightly elevated, and does not need rechecked Avoid renal toxic medication Renal ultrasound demonstrated no obstruction Status: Acute (4) Leukocytosis: Resolved at last check Status: Acute (5) Sepsis: Qualifies for sepsis secondary to leukocytosis, encephalopathy, acute kidney injury with localization of probable UTI. Lactic acid level normal. Resolved Status: Acute (6) Hyponatremia: Resolved TSH checked and normal. Status: Acute (7) PAD (peripheral artery disease): Recent debridement Recent culture demonstrated Proteus Secondary to concerns of sepsis will initiate linezolid along with Zosyn Surgery was informed regarding the patient's admission Continue wound vacuum Status: Inactive Additional A&P Information History of paroxysmal atrial fibrillation, heart rate controlled currently Coronary artery disease, continue home medications History of chronic anemia. Hemoglobin has drifted down consistent with hydration changes. Await repeat CBC today History of diastolic heart failure. Compensated currently. Reduce fluids further History of hypertension History of depression. Hold duloxetine secondary to fluconazole administration Full code Heparin for DVT prophylaxis No SCDs secondary to severe peripheral vascular disease Family electing to go home with home health currently 10/13 continue IV antibiotics. Continue wound care. Close follow-up of renal function. Possible discharge tomorrow. 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
[2020-10-13 12:37] LABS: Basophils # 0.1 10^3/uL (0.0-0.1); Basophils % 0.6 %; Eosinophils # 0.2 10^3/uL (0.0-0.8); Hematocrit 31.5 % (37.0-47.0); Hemoglobin 10.2 g/dL (11.5-15.3); Lymphocytes # 0.7 10^3/uL (0.8-4.8); Lymphocytes % 6.7 %; Mean Corpuscular HGB Conc 32.4 g/dL (30.0-36.0); Mean Corpuscular Hemoglobin 30.6 pg (28.0-34.0); Mean Corpuscular Volume 94.6 fL (81-99); Mean Platelet Volume 10.4 fL (7.4-10.4); Monocytes # 0.7 10^3/uL (0.2-0.9); Monocytes % 6.3 %; Neutrophils # 8.89 10^3/uL (1.8-7.7); Neutrophils % 83.2 %; Nucleated Red Blood Cells % 0 %; Platelet Count 259 10^3/cmm (130-400); Red Blood Count 3.33 10^6/uL (4.1-5.3); Red Cell Distribution Width 15.7 % (12.1-15.1); White Blood Count 10.7 10^3/uL (4.0-10.0)
[2020-10-13] MEDS: linezolid premix 600 MG/300 ML PREMIX 300 MG IV ×2 (12:47→22:53)
[2020-10-13] MEDS: heparin 5,000 unit/mL INJ 1 mL 5000 UNIT SUBCUT ×2 (12:49→22:53)
[2020-10-13 12:54] LABS: Alanine Aminotransferase 23 U/L (0-33); Albumin Level 1.7 g/dL (3.5-5.2); Alkaline Phosphatase 160 IU/L (35-105); Blood Urea Nitrogen 29 mg/dL (8-23); Calcium 7.4 mg/dL (8.5-10.5); Carbon Dioxide 21 mmol/L (22-29); Chloride 104 mmol/L (98-107); Creatinine Clr Calc Pharmacy 44.4367; Globulin 2.8 g/dL (1.3-4.6); Glucose 87 mg/dL (65-115); Osmolality Calculated 285 mOsm/kg (285-295); Sodium 135 mmol/L (136-145); Total Bilirubin 0.4 mg/dL (0.15-1.2); Total Protein 4.5 g/dL (6.6-8.7)
[2020-10-13 13:05] LABS: Slide Review Slide Review Perform
[2020-10-13 13:06] LABS: Anion Gap 13.9 (5-19); Aspartate Amino Transferase 34 U/L (0-32); Potassium 3.9 mmol/L (3.5-5.1)
[2020-10-13] MEDS: piperacillin-tazobactam 3.375 GM in sodium chloride 0.9% (plus) 50 ML IV (17:59)
[2020-10-14] VITALS: BP 108/64; PULSE 71; RESP 16; TEMP 36.7; O2SAT 95
[2020-10-14] MEDS: piperacillin-tazobactam 3.375 GM in sodium chloride 0.9% (plus) 50 ML IV ×2 (00:11→08:15)
[2020-10-14 04:00] VITALS: BP 136/73; PULSE 75; RESP 16; TEMP 36.6; O2SAT 96
--- NOTE | 2020-10-14 05:20 | PC.NURSE ---
SHIFT SUMMARY Has rested well tonight. Has been assisted with position changes. Has wounds to BLE with wound vacs in place to those on right lat lower leg, outer right lower leg and left lat leg. Other pressure areas open to air except both heels which have Optifoam pads in place. Legs are tender and painful to touch/movement. Recieving IV antibiotics as ordered. Is hoping to go home today
[2020-10-14 05:44] LABS: Anion Gap 9.2 (5-19); Blood Urea Nitrogen 23 mg/dL (8-23); Calcium 7.6 mg/dL (8.5-10.5); Carbon Dioxide 26 mmol/L (22-29); Chloride 104 mmol/L (98-107); Glucose 89 mg/dL (65-115); Osmolality Calculated 285 mOsm/kg (285-295); Potassium 3.2 mmol/L (3.5-5.1); Sodium 136 mmol/L (136-145)
[2020-10-14] MEDS: levothyroxine 88 mcg Tablet PO (06:02)
[2020-10-14] MEDS: pantoprazole DR 40 mg Tablet PO (06:02)
[2020-10-14] MEDS: clopidogrel 75 mg Tablet PO (06:02)
[2020-10-14] MEDS: amiodarone 200 mg Tablet PO (06:03)
[2020-10-14 07:45] VITALS: BP 117/64; PULSE 73; RESP 18; TEMP 36.7; O2SAT 96
[2020-10-14] MEDS: metoprolol tartrate 50 mg Tablet 25 MG PO (08:14)
[2020-10-14] MEDS: fluconazole 100 mg Tablet 200 MG PO (08:14)
--- NOTE | 2020-10-14 09:20 | PC.SOCIAL ---
IMM Page 2 of IMM explained to patient. Initialed, dated, and timed and placed in chart. Copy provided to patient.
--- NOTE | 2020-10-14 11:16 | P.DS_ITS ---
Discharge Providers Date of Admission: 10/11/20 07:44 Date of Discharge: October 14, 2020 Attending Provider at Admission: Chris Green MD Attending Provider at Discharge: Chris Green MD Primary Care Provider: Melina Weeks MD Diagnoses at Discharge Discharge Diagnosis (1) Urinary tract infection: Status: Acute Qualifiers: Hematuria presence: without hematuria Urinary tract infection type: acute cystitis Qualified Code(s): N30.00 - Acute cystitis without hematuria (2) Encephalopathy acute: Status: Acute (3) Acute kidney injury: Status: Acute (4) Leukocytosis: Status: Acute (5) Sepsis: Status: Acute (6) Hyponatremia: Status: Acute (7) PAD (peripheral artery disease): Status: Inactive Reason for Visit Reason for Visit: AMS Hospital Course Hospital Course Eliana is a 70-year-old white female who presented to the emergency department with lethargy and concern of sepsis. UTI was present. She had had her legs debrided recently secondary to peripheral vascular disease and chronic ulceration. She was placed on Zosyn as well as linezolid. Acute on chronic renal failure was noted. She was hydrated. Sedating medication was adjusted. Throughout her hospital course she had gradual improvement. Blood cultures ultimately did not grow any organism. Urine culture grew Proteus, sensitive to Augmentin. Previous wound culture grew Proteus, as well as Enterococcus. Achromobacter was also isolated but it is difficult to know its significance. She will complete 7 more days of Augmentin, follow-up in wound clinic within no 7 days. She will have home health with home physical therapy and continue to have wound care with her wound vacuum's. She will be discharged with her chronic jacobs. She will need a BMP in 3 to 5 days. Physical Exam Narrative: EXAM NARRATIVE: General exam no apparent distress Cardiovascular regular rate and rhythm Lungs clear Abdomen is soft, positive bowel sounds Extremities wound vacuum is in place. Cap refill approximately 2 seconds. Discharge Data Data Completed and Pending: Completed Studies During Hospitalization Category Date Time Status CT head wo con* 7 0450 Urgent Cat Scan 10/10/20 21:38 Completed XR chest 1V mp ble [id number] Urgent Exams 10/10/20 21:38 Completed US renal BI* [id number] Routine Ultrasound 10/12/20 Completed Pending at discharge Category Date Time Status Blood Culture Sta t Lab 10/10/20 21:33 Results Labs from last 24 hours 10/14/20 10/13/20 10/13/20 04:07 12:22 12:22 WBC 10.7 H RBC 3.33 L Hgb 10.2 L Hct 31.5 L MCV 94.6 MCH 30.6 MCHC 32.4 RDW 15.7 H Plt Count 259 MPV 10.4 Neut % (Auto) 83.2 Lymph % (Auto) 6.7 [place] % (Auto) 6.3 Eos % (Auto) 2.0 Baso % (Auto) 0.6 Neut # (Auto) 8.89 H Lymph # (Auto) 0.7 L [place] # (Auto) 0.7 Eos # (Auto) 0.2 Baso # (Auto) 0.1 Nucleated RBC % (a uto) 0 Nucleated RBCs # 0.0 Sodium 136 135 L Potassium 3.2 L 3.9 Chloride 104 104 Carbon Dioxide 26 21 L Anion Gap 9.2 13.9 BUN 23 29 H Creatinine 1.1 H 1.2 H GFR Calculation Not Reportable Not Reportable Glucose 89 87 Calculated Osmolal ity 285 285 Calcium 7.6 L 7.4 L Total Bilirubin 0.4 AST 34 H ALT 23 Alkaline Phosphata se 160 H Total Protein 4.5 L Albumin 1.7 L Globulin 2.8 Vitals: Last Vital Signs Temp 98.0 F 10/14/20 07:45 Pulse 73 10/14/20 07:45 Resp 18 10/14/20 07:45 BP 117/64 10/14/20 07:45 Pulse Ox 96 10/14/20 07:45 Discharge Plan Discharge Patient Disposition: Home Health Service Condition: Stable Prescriptions: New amoxicillin-pot clavulanate [Augmentin] 875-125 mg tablet 1 tab PO BID Qty: 14 RF: 0 bumetanide 2 mg tablet 2 mg PO DAILY Qty: 30 RF: 0 Continued metoprolol tartrate 50 mg tablet 25 mg PO BID RF: 0 amiodarone 200 mg tablet 200 mg PO QAM RF: 0 cilostazol 100 mg tablet 100 mg PO BID 30 Days Qty: 60 RF: 3 potassium chloride 20 mEq tablet extended release 20 meq PO DAILY Qty: 30 RF: 5 atorvastatin 40 mg Tablet 20 mg PO BEDTIME Qty: 30 RF: 0 nystatin 100,000 unit/gram Powder See Rx Instructions .ROUTE .COMPLEX PRN (Reason: rash) RF: 0 duloxetine [Cymbalta] 30 mg Capsule,Delayed Release(Dr/Ec) 30 mg PO QAM RF: 0 levothyroxine 88 mcg tablet 88 mcg PO QAM RF: 0 pantoprazole 40 mg tablet,delayed release (DR/EC) 40 mg PO QAM RF: 0 clopidogrel 75 mg tablet 75 mg PO QAM RF: 0 hydromorphone 2 mg tablet 2 mg PO Q6H Qty: 20 RF: 0 One-A-Day Women's 50 Plus 400-20 mcg Tablet 1 tab PO DAILY RF: 0 senna 8.6 mg Tablet 8.6 mg PO DAILY RF: 0 nystatin 100,000 unit/mL Suspension 5 ml PO QID RF: 0 Colace 2-In-1 8.6-50 mg Tablet 2 tab PO DAILY PRN (Reason: Constipation) RF: 0 Flonase 50 mcg/actuation Walker,Suspension 2 spray INTRANASAL DAILY RF: 0 Lidocaine Viscous 2 % solution See Rx Instructions .ROUTE .COMPLEX RF: 0 Discontinued bumetanide 2 mg tablet 2 mg PO BID Qty: 60 RF: 5 Flexeril 10 mg Tablet 10 mg PO BID PRN (Reason: Muscle Spasm) RF: 0 hydrocodone-acetaminophen 5-325 mg tablet 1 - 2 tab PO Q8H PRN (Reason: Pain) RF: 0 oxycodone 5 mg tablet 5 mg PO BEDTIME PRN (Reason: Pain) RF: 0 Discharge Orders: Discharge Order (Routine); Ordered 10/14/20 Ordered By: Chris Green Referrals: [facility] [Outside] Melina Weeks MD [Primary Care Provider] - 4-7 days (BMP on follow up) Juan Stanford MD [Physician] - 1 week (Follow-up with in 1 week at wound care) Discharge Diet: Cardiac Discharge Activity: Increase activity as tolerated Activity Restrictions/Additional Instructions: Take all medicine as prescribed Follow-up with wound care next week Continue wound care per their instructions Discharge Attestations Time Spent in Discharge Care*: greater than 30 min Status at Discharge: Cognitive status at discharge: cognitively intact , Behavioral status at discharge: cooperative , Quality Metrics Clinical Quality Measures During this hospital stay, did patient experience: None Coding Level of Care Code Acute Director Electrical Engineering for g Fwd Diagnoses Urinary tract infection N30.00 Hematuria presence: without hematuria Urinary tract infection type: acute cystitis Encephalopathy acute G93.40 Acute kidney injury N17.9 Leukocytosis D72.829 Sepsis A41.9 Hyponatremia E87.1 PAD (peripheral artery disease) I73.9
[2020-10-14 11:23] VITALS: BP 118/69; PULSE 69; RESP 17; TEMP 36.5; O2SAT 98
[2020-10-14 12:12] VITALS: BP 118/69; PULSE 69; RESP 17; TEMP 36.5; O2SAT 98
[2020-10-14] MEDS: linezolid premix 600 MG/300 ML PREMIX 300 MG IV (12:49)
[2020-10-14] MEDS: heparin 5,000 unit/mL INJ 1 mL 5000 UNIT SUBCUT (12:50)
== END 2020-10-14 14:55 | disposition home health service (06) | DRG 872 ==
LOC: ER 10-11 07:39 → MEDSURG 10-11 08:14
PROVIDERS: Emergency Medicine; Admitting Provider Internal Medicine; Emergency Provider Family Medicine; PCP Internal Medicine; Visit Provider Internal Medicine
DX: A41.9 Sepsis, unspecified organism (principal); T83.518A Infection and inflammatory reaction due to other urinary catheter, initial encounter; N30.00 Acute cystitis without hematuria; I13.0 Hypertensive heart and chronic kidney disease with heart failure and stage 1 through stage 4 chronic kidney disease, or unspecified chronic kidney disease; I50.32 Chronic diastolic (congestive) heart failure; G93.40 Encephalopathy, unspecified; N17.9 Acute kidney failure, unspecified; E87.1 Hypo-osmolality and hyponatremia; L97.929 Non-pressure chronic ulcer of unspecified part of left lower leg with unspecified severity; L97.919 Non-pressure chronic ulcer of unspecified part of right lower leg with unspecified severity; E11.22 Type 2 diabetes mellitus with diabetic chronic kidney disease; N18.9 Chronic kidney disease, unspecified; D64.9 Anemia, unspecified; I25.10 Atherosclerotic heart disease of native coronary artery without angina pectoris; Z95.5 Presence of coronary angioplasty implant and graft; E78.5 Hyperlipidemia, unspecified; E03.9 Hypothyroidism, unspecified; I48.0 Paroxysmal atrial fibrillation; I25.2 Old myocardial infarction; Z87.891 Personal history of nicotine dependence; F32.9 Major depressive disorder, single episode, unspecified; B37.9 Candidiasis, unspecified; E11.51 Type 2 diabetes mellitus with diabetic peripheral angiopathy without gangrene; E11.622 Type 2 diabetes mellitus with other skin ulcer; B96.4 Proteus (mirabilis) (morganii) as the cause of diseases classified elsewhere; B95.2 Enterococcus as the cause of diseases classified elsewhere; Z79.891 Long term (current) use of opiate analgesic; Z79.02 Long term (current) use of antithrombotics/antiplatelets; Z96.0 Presence of urogenital implants
CPT/HCPCS: 12345; 36415; 36430; 36600; 70450; 71045; 76770; 76857; 80048; 80053; 81001; 82550; 82803; 83605; 83735; 84443; 84484; 85025; 85610; 86140; 86850; 86900; 86920; 87040; 87070; 87077; 87086; 87176; 87186; 87205; 93005; 96365; 96372; 96374; 96375; 97110; 97162; 97167; 97530; 99284; J0131; J0690; J0696; J1644; J1885; J2020; J2270; J2405; J2543; J2704; J3010; J3370; J3490; J7030; J7050; P9016

== ENCOUNTER 2020-11-01 17:26 | Outpatient (CLI) | payer MEDICARE, SELFPAY ==
[2020-11-01 18:26] LABS: Add Urine Microscopic? YES; Bilirubin Urine Neg (Negative); Blood Urine Neg (Negative); Glucose Urine UA Norm (Normal); Ketones Urine Negative (Negative); Leukocyte Esterase Urine 2+ (Negative); Nitrate Urine Positive (Negative); Protein Urine Neg (Negative); Sulfosalicylic Acid Urine Positive (Negative); Urine Appearance Hazy (CLEAR); Urine Color Yellow (Yellow); Urobilinogen Urine Norm (Negative); pH Urine 8 (5-7)
[2020-11-01 18:28] LABS: Add Urine Culture? No; Amorphous Sediment Urine 1+ /hpf; Bacteria Urine 4+ /hpf; RBC Urine 0-4 /hpf (0-2); Squamous Epithelial Cell Urine 0-4 /hpf (0-5); WBC Urine TOO NUMEROUS TO CNT /hpf (0-5)
== END 2020-11-01 17:27 | disposition home or self-care (01) ==
LOC: LAB 17:28
PROVIDERS: PCP Internal Medicine; Visit Provider Internal Medicine
DX: N30.00 Acute cystitis without hematuria (principal)
CPT/HCPCS: 81001; 87077; 87086; 87186

== ENCOUNTER 2020-11-11 11:10 | Outpatient (CLI) | payer MEDICARE, SELFPAY | END 2020-11-11 11:11 | disposition home or self-care (01) | PROVIDERS: PCP Internal Medicine; Visit Provider Thoracic Surgery (Cardiothoracic Vascular Surgery) | DX: L03.115 Cellulitis of right lower limb (principal) | CPT/HCPCS: 87070; 87077; 87186; 87205 ==